=== PATIENT | male | born 1950 | race Caucasian/White ===

== ENCOUNTER 2024-01-26 17:18 | Emergency (ER) | payer MEDICARE, OTHER, SELFPAY ==
--- NOTE | ~2024-01-26 | XR_ITS ---
EXAMINATION: XR chest 1V portable Exam Date/Time: 01/26/2024 18:00 [employer] HISTORY: cough, sore throat Comparison: 02/08/2008. RESULT: Lines, tubes, and devices: Cholecystectomy clips. Lungs and pleura: Clear. Cardiomediastinal silhouette: Stable. Other: No acute osseous or upper abdominal finding. IMPRESSION: No acute cardiopulmonary process. Reviewed, dictated and finalized at location K. [employer]
[2024-01-26 17:24] VITALS: BP 79/46; PULSE 76; RESP 22; TEMP 37.7; O2SAT 91
[2024-01-26 17:39] VITALS: BP 86/56; PULSE 74; RESP 16; O2SAT 93
--- NOTE | 2024-01-26 17:45 | ED.GENADULT ---
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 Patient reports last night he started to little bit of a cough that popped up but was doing okay overall. Today states he started to developed fevers up to 101? F. He took Tylenol just prior to arrival. Reports only 1 episode of productive cough with sputum. States he had a similar episode about 1 month ago and got better with steroids and antibiotics. Denies abdominal pain, nausea, vomiting, chest pain, shortness of breath, syncope, back pain. Upon arrival his blood pressure is noted to be in the 80s over 50s, he states his blood pressure has been low several times in the past and he does have chronic orthostatic hypotension Related Data Home Medications Medication Instructions Recorded Confirmed acyclovir 800 mg tablet 12/21/19 albuterol sulfate 90 mcg/actuation inhalation 12/21/19 aerosol inhaler (Ventolin HFA) budesonide-formoterol HFA 160 inhalation 12/21/19 mcg-4.5 mcg/actuation aerosol inhaler (Symbicort) flecainide 150 mg tablet 12/21/19 metoprolol succinate 25 mg PO 12/21/19 tablet,extended release 24 hr pregabalin 150 mg capsule 12/21/19 Allergies Allergy/AdvReac Type Severity Reaction Status Date / Time gabapentin Allergy Intermediate Rash Verified 12/21/19 12:53 Review of Systems Review of Systems: All systems as dictated in [facility] Social History Social History Gender identity (if verbalized by the patient): Male Exam Narrative: GENERAL: Well-appearing, well-nourished, and in no acute distress. Pleasant and conversational HEAD: Normocephalic, atraumatic. EYES: PERRLA and EOMI. ENT: Nares clear, no rhinorrhea or epistaxis. Mucous membranes moist. Oropharynx without tonsillar hypertrophy exudate or other lesions. NECK: Supple. No adenopathy or masses. CHEST: No respiratory distress. Clear to auscultation. No wheezes rales or rhonchi. 93% room air. HEART: Regular rate and rhythm. No murmur heard. Normal peripheral pulses. ABDOMEN: Soft, nontender, nondistended, normal active bowel sounds. MSK: Normal range of motion. No edema. SKIN: Warm, dry, no rash. NEURO: Alert and oriented x3. No focal deficits. PSYCH: Normal mood and affect. Course Vital Signs Vital signs: Vital Signs Temperature 99.9 F H 01/26/24 17:24 Pulse Rate 76 01/26/24 17:24 Respiratory Rate 22 H 01/26/24 17:24 Blood Pressure 79/46 L 01/26/24 17:24 Pulse Oximetry 91 01/26/24 17:24 Oxygen Delivery Room Air 01/26/24 17:24 Temperature 100.2 F H 01/26/24 18:08 Pulse Rate 69 01/26/24 18:45 Respiratory Rate 17 01/26/24 18:45 Blood Pressure 121/62 01/26/24 18:45 Pulse Oximetry 99 01/26/24 18:45 Oxygen Delivery Room Air 01/26/24 17:24 Medical Decision Making [facility] Narrative Medical decision making narrative: This is a 73 year old male who presents to the ED for cough and sore throat for the past 24 hours. Vitals show low-grade temperature 99.9? and initially hypotensive. Apparently this is not abnormal for him with history of orthostatic hypotension. Exam overall is unremarkable. He is pleasant conversational. Strong pulses despite lower blood pressure. Saturating well on room air. Lab work shows normal white count. CMP shows slight elevations in creatinine and BUN, consistent with dehydration. Urinalysis negative. Chest x-ray Viral swab positive for influenza A. Symptoms consistent with influenza. Given his age and history of her bone marrow transplant several years ago he is consider
[2024-01-26 18:08] VITALS: BP 89/46; PULSE 67; RESP 18; TEMP 37.9; O2SAT 91
[2024-01-26 18:12] LABS: Basophils Percent Auto 0.2 % (0.2-1.2); Eosinophils Absolute Auto 0.1 K/mm3 (0-0.3); Hematocrit 35.6 % (42.0-52.0); Immature Granulocyte Absolute 0.02 K/mm3 (0.00-0.031); Immature Granulocyte Percent A 0.4 % (0-0.5); Immature Platelet Fraction Pct 3.9 % (0.9-11.2); Lymphocytes Absolute Auto 0.27 K/mm3 (0.9-3.2); Lymphocytes Percent Auto 5.5 % (18.3-44.2); Mean Corpuscular HGB Conc 33.7 g/dl (32-36); Mean Corpuscular Hemoglobin 32.8 pg (26-34); Mean Corpuscular Volume 97.3 fl (80-100); Mean Platelet Volume 9.4 fl (7.4-10.4); Monocytes Absolute Auto 0.4 K/mm3 (0.1-0.6); Monocytes Percent Auto 8.1 % (2.6-8.5); Neutrophils Absolute Auto 4.2 K/mm3 (1.3-6.7); Neutrophils Percent Auto 84.8 % (45.5-73.1); Platelet Count Result 145 k/mm3 (150-375); Red Blood Count 3.66 M/mm3 (4.6-6.20); Red Cell Distribution Width 12.3 % (11.5-14.5)
[2024-01-26 18:22] LABS: Lactic Acid Reflex 1.3 mmol/L (0.7-2.0)
[2024-01-26] MEDS: SODIUM CHLORIDE 0.9% IV 1,000 ML 999 ML IV CONT (18:23)
[2024-01-26 18:27] LABS: Alanine Aminotransferase 17 U/L (6-50); Albumin Level 3.9 g/dL (3.5-5.1); Alkaline Phosphatase 86 U/L (38-126); Anion Gap 1 mmol/L (8-16); Aspartate Amino Transferase 29 U/L (17-59); Bilirubin,Total 0.7 mg/dL (0.2-1.3); Blood Urea Nitrogen 23 mg/dL (9-20); Calcium 8.9 mg/dL (8.4-10.2); Carbon Dioxide 29 mmol/L (22-30); Chloride 102 mmol/L (98-107); Estimated CRCL calculation 51 ml/min; Estimated Glomerular Filt Rate 50; Glucose 118 mg/dL (65-110); Potassium 4.6 mmol/L (3.4-5.0); Sodium 132 mmol/L (137-145)
[2024-01-26 18:45] VITALS: BP 121/62; PULSE 69; RESP 17; O2SAT 99
[2024-01-26 18:46] LABS: Influenza A QL RT-PCR Positive (Negative); Influenza B QL RT-PCR Negative (Negative); RSV RNA, RT-PCR Negative (Negative); SARS-CoV-2 RNA PCR Negative (Negative)
[2024-01-26 18:55] LABS: INR 1.1; Partial Thromboplastin Time 30.3 SECONDS (22.3-36.8); Prothrombin Time 14.2 Seconds (11.1-14.7)
--- NOTE | 2024-01-26 19:16 | PC.NURSE ---
Assumed care of pt from GONZÁLEZ Curiel at this time.
[2024-01-26 19:24] LABS: Appearance Urine Clear (Clear); Bilirubin Urine Negative (Negative); Blood Urine Negative (Negative); Color Urine Yellow (Yellow); Glucose Urine UA Negative (Negative); Ketones Urine Negative (Negative); Leukocyte Esterase Ur Negative LEU/UL (Negative); Nitrate Urine Negative (Negative); Protein Urine Negative (Negative); Specific Grav Ur 1.015 (1.001-1.035); pH Urine 5.5 (5.0-9.0)
[2024-01-26 19:25] LABS: Add Urine Microscopic? NO
[2024-01-26] MEDS: ACETAMINOPHEN 325 MG TABLET 650 MG PO (19:37)
[2024-01-26 19:49] VITALS: BP 112/75; PULSE 70; RESP 17; O2SAT 96
== END 2024-01-26 19:53 | disposition home or self-care (01) ==
PROVIDERS: Emergency Provider Physician Assistant; PCP Internal Medicine
DX: J10.1 Influenza due to other identified influenza virus with other respiratory manifestations (principal); Z20.822 Contact with and (suspected) exposure to COVID-19; I48.91 Unspecified atrial fibrillation; J44.9 Chronic obstructive pulmonary disease, unspecified; Z94.81 Bone marrow transplant status; Z85.79 Personal history of other malignant neoplasms of lymphoid, hematopoietic and related tissues
CPT/HCPCS: 36415; 71045; 80053; 81003; 83605; 85025; 85055; 85610; 85730; 86140; 87637; 96360; 99283; A9270; J7030

== ENCOUNTER 2025-01-25 09:48 | Inpatient (IN) | payer MEDICARE, SELFPAY ==
--- NOTE | ~2025-01-25 | XR_ITS ---
XR hip LT 1V w AP pelvis Ordering provider: Eliot Siu MD History: . POST OP . Comparison: None. FINDINGS: BONES: No acute fracture or dislocation. HIP JOINT SPACES: Left hip arthroplasty. PUBIC SYMPHYSIS: Normal. SOFT TISSUES: Normal. IMPRESSION: No acute osseous abnormality. Left hip arthroplasty. Reviewed, dictated and finalized at location A. E SPOOLER
--- NOTE | ~2025-01-25 | XR_ITS ---
EXAMINATION: XR chest 1V DATE: 01/25/2025 13:12 INDICATION: Chest pain. Fall. TECHNIQUE: A single frontal view of the chest was obtained on 2 radiographs. COMPARISON: Chest single view 01/26/2024 FINDINGS: There is mild atelectasis at right lung base. No pleural effusion or pneumothorax. The hear t size is normal. There are old healed right rib fractures. IMPRESSION: 1. Mild atelectasis at right lung base. Reviewed, dictated and finalized at location A. ICAL AIDE
--- NOTE | ~2025-01-25 | XR_ITS ---
INTRAOPERATIVE RADIOGRAPH: CLINICAL HISTORY: 74 years old Male; INTRA OP HIP LEFT SIDE PROCEDURE COMMENTS: Limited intraoperative radiograph of the left was performed. FINDINGS/IMPRESSION: Please refer to operative note for further details. Reviewed, dictated and finalized at location A. TIN PLANT SUPERVISOR
--- NOTE | ~2025-01-25 | MR_ITS ---
MR cervical spine wo/w con Ordering provider: Eliot Siu MD History: . Lower extremity and upper extremity wk + Spasticit . Comparison: None. Technique: MRI cervical spine with and without contrast enhancement. 20 mL Prohance was given IV. FINDINGS: CERVICAL SPINAL CORD/CRANIAL CERVICAL JUNCTION: Normal in signal and caliber. No abnormal enhancement . CERVICAL VERTEBRAL BODIES: Normal height and alignment. Normal marrow signal. No abnormal marrow enha ncement. Degenerative changes of the spine. DISK SPACES: Narrowing of the disc C5-C6 and C6-C7 C2-C3: No stenosis. C3-C4: No stenosis. Diffuse disc bulge with bilateral narrowing of the foramina. Bilateral nerve root compression. C4-C5: No stenosis. Mild diffuse disc bulge. Narrowing of the left intervertebral foramen. C5-C6: No stenosis. Diffuse disc bulge with narrowing of the left intervertebral foramen and with com pression. C6-C7: No stenosis. Diffuse disc bulge with narrowing of the left foramen and with nerve root konstantin alex. C7-T1: No stenosis. Diffuse disc bulge. Narrowing of the right foramen with root compression. VISUALIZED PARASPINOUS SOFT TISSUES: Normal. No abnormal enhancement. IMPRESSION: 1. No acute osseous abnormality. 2. Multilevel degenerative disc disease with variable degrees of intervertebral foraminal narrowing and root compression.. 3. No enhancing lesion Reviewed, dictated and finalized at location A. CTOR OF CATERING SALES IMPRESSION: 1. No acute osseous abnormality. 2. Multilevel degenerative disc disease with variable degrees of intervertebra l foraminal narrowing and root compression.. 3. No enhancing lesion
--- NOTE | ~2025-01-25 | XR_ITS ---
EXAMINATION: XR hip LT 2V w AP pelvis DATE: 01/25/2025 13:12 INDICATION: Left hip pain. Injury. TECHNIQUE: An anteroposterior the pelvis on 2 radiographs and 2 views of the left hip were obtained. COMPARISON: None. FINDINGS: There is a subcapital fracture of left femoral neck. The distal fracture fragment demonstra patricia impaction, 11 mm anterior displacement, and 10 mm lateral displacement. There is mild osteoarthri tis of the hips. There is severe lumbar spondylosis. There are surgical clips overlying the abdomen a nd pelvis. IMPRESSION: 1. Subcapital fracture of left femoral neck. 2. Mild osteoarthritis of the hips. Reviewed, dictated and finalized at location A. IAL SERVICES AGENT
--- NOTE | ~2025-01-25 | XR_ITS ---
HISTORY: AP RT hip, leg with mild int rot, centered on head COMPARISON: None TECHNIQUE: AP view of the right hip FINDINGS: No acute fracture or dislocation is identified. Superior lateral sclerosis of the right femoral acetabular joint space is present consistent with ost eoarthritis. Joint space narrowing detected within the left SI joint with sclerosis. Degenerative disease within the visualized portion of the lower lumbar spine. Mineralization is age-appropriate IMPRESSION: Degenerative disease without acute fracture or dislocation Reviewed, dictated and finalized at location A. GATING OFFICER
--- NOTE | ~2025-01-25 | MR_ITS ---
EXAMINATION: MR lumbar spine wo con DATE: 01/30/2025 13:18 INDICATION: Lower extremity weakness and numbness TECHNIQUE: Magnetic resonance imaging (MRI) of the lumbar spine was performed without intravenous con trast. Sequences included sagittal T2-weighted FSE, sagittal T2-weighted FS FSE, sagittal T1-weighted FSE, and axial T2-weighted FSE. COMPARISON: None FINDINGS: 7 mm retrolisthesis L4 on L5 and 3 mm retrolisthesis L1 on L2, L2 on L3 and L3 on L4. Chronic konstantin alex fractures with 20% anterior vertebral body height loss at T12 and L1 and with 10% anterior verte bral body height loss at L2. Small Schmorl's node along the anterior inferior endplate of L3. Moderat e disc height loss at T11-T12, L1-L2 and L2-L3, moderate disc height loss at L3-L4 and L5-S1 and yara re disc height loss at L4-L5. There are fibrovascular degenerative endplate changes at a few levels i n the lumbar spine. Bone marrow signal is otherwise normal. The conus medullaris terminates at L1-L2. There is normal signal in the caudal spinal cord. Paravertebral soft tissues are unremarkable. The f ollowing disc levels are specifically discussed: T12-L1: The disc does not extend beyond the endplate margin. There is bilateral facet joint osteoarth ritis. There is no neural foraminal stenosis. There is no central canal stenosis. L1-L2: Disc is bulging. There is hypertrophy of the ligamentum flavum. There is moderate bilateral fa cet joint osteoarthritis. There is mild bilateral neural foraminal stenosis. There is mild central ca nal stenosis. L2-L3: Disc is bulging with annular fissure and small central disc extrusion with disc material exten ding 5 mm caudal to the level of the superior endplate of L3. There is hypertrophy of the ligamentum flavum. There is mild left and moderate right facet joint osteoarthritis. There is moderate left and mild to moderate right neural foraminal stenosis. There is mild to moderate central canal stenosis. L3-L4: Disc is bulging with annular fissure broad-based disc extrusion extending from foraminal zone to foraminal zone with disc material extending a few millimeter cephalad and caudal to the level of t he endplates. There is moderate bilateral facet joint osteoarthritis. There is moderate left and mild to moderate right neural foraminal stenosis. There is mild central canal stenosis. L4-L5: Disc is bulging with annular fissure and disc extrusion extending from foraminal zone to maggie inal zone with disc material extending up to 4 mm caudal to the level of the superior endplate of L5. There is hypertrophy of the ligamentum flavum. There is moderate bilateral facet joint osteoarthriti s. There is moderate left and moderate to severe right neural foraminal stenosis. There is mild centr al canal stenosis. L5-S1: Disc is bulging with annular fissure and disc extrusion extending from foraminal zone to maggie inal zone with disc material extending a few millimeter cephalad and caudal to the level of the endpl ates. There is hypertrophy of the ligamentum flavum. There is moderate left and severe right facet anuradha int osteoarthritis. There is moderate left and moderate to severe right neural foraminal stenosis. Th ere is no central canal stenosis. IMPRESSION: 1. Severe lumbar spondylosis. Reviewed, dictated and finalized at location B. TH PROGRAM DIRECTOR
--- NOTE | ~2025-01-25 | XR_ITS ---
EXAMINATION: XR knee LT 3V DATE: 01/25/2025 13:12 INDICATION: Left knee pain. Injury. TECHNIQUE: 3 views of left knee were obtained. COMPARISON: None. FINDINGS: Sensitivity is decreased by nonstandard positioning. Alignment is normal. No fracture. Ther e is mild osteoarthritis of medial and lateral compartments. No knee joint effusion. IMPRESSION: 1. Mild left knee osteoarthritis. Reviewed, dictated and finalized at location A. 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
--- NOTE | ~2025-01-25 | MR_ITS ---
EXAMINATION: MR thoracic spine wo/w con DATE: 01/30/2025 15:38 INDICATION: Lower extremity weakness and numbness TECHNIQUE: Magnetic resonance imaging (MRI) of the thoracic spine was performed without and with 20 m L ProHance intravenous contrast. Sagittal localizer T1-weighted FSE of the cervicothoracic spine was obtained. Thoracic spine sequences included sagittal T2-weighted FSE, sagittal T1-weighted SE, Sagitt al T2-weighted FS FSE, and axial T2-weighted FSE. COMPARISON: None FINDINGS: Moderate cervical spondylosis on the dressing room attendant localizer images. Sagittal alignment is normal. There is 1 0 degrees mid thoracic dextroscoliosis with compensatory mild cervicothoracic and thoracolumbar levoc urvature. Chronic mild likely physiologic anterior wedging at T11 and T12. Normal marrow signal. Mild disc height loss at T2-T3 through T6-T7. The thoracic discs do not extend beyond the endplate margin . There is normal spinal cord signal. The conus terminates at T12-L1. There is multilevel mild to mod erate upper thoracic predominant facet osteoarthritis noted discontiguous 2 mild neural foraminal maria nosis at a few levels bilaterally in the upper thoracic spine. No abnormally enhancing spine or cord lesions identified. IMPRESSION: 1. 10 degrees midthoracic dextroscoliosis with mild thoracic spondylosis. Reviewed, dictated and finalized at location B. 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
[2025-01-25 09:52] VITALS: BP 94/58; PULSE 72; RESP 15; TEMP 36.6; O2SAT 100
--- OUTSIDE RECORDS SUMMARY | 2025-01-25 10:53 | XMS_ITS | Referral Summary ---
Author Organization [facility] Address [address] [facility] [place] [address] Care Team Providers Care Evaluation Manager Name Role Phone Billy Jalloh MD Primary Care Provider Jamie Arboleda MD Unavailable Ruben Prak MD Unavailable Yoni Young CD Unavailable Vadim Xiong MD Unavailable [phone] Source Comments [facility],non-owned Affiliates and Associated Physician Practices is amultiple site organization consisting of ambulatory clinics and hospital sitesin [place], [place], [place] and [place]. This disclosure is being madepursuant to the Care Everywhere program and may not contain all information available regarding this patient. 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) 12/23/2024 Travel 11/09/2024 Orders Only [facility] - Pulmonology [facility], [place] [address] Jamie Arboleda MD 11/07/2024 Telephone [facility] - Pulmonology [facility] [place] [address] Jamie Arboleda MD 11/07/2024 Telephone [facility] - Centralized Scheduling [address] [place] [address] Jamie Arboleda MD Reschedule Appointment from Last 3 Months Allergies Active Allergy Reactions Criticality Noted Date Comments Gabapentin Rash,Urticaria Medium 03/15/2015 Suspect the rash was caused by gabapentin Medications * Be aware that medications may not be up to date on this document. Alwaysverify current medications with the patient. Medication Sig Dispensed Refills Start Date End Date Status docusate sodium (COLACE) 100 MG capsule Take 1 capsule by mouth 2 times daily 60 capsule 9 Active pregabalin (LYRICA) 150 MG capsuleIndications: Waldenstrom macroglobulinemia,S ensory polyneuropathy Take 1 (one) capsule by mouth 2 times daily 60 capsule 5 1 Active Additional Information Patient not taking.Reported on 12/27/2024 valACYclovir (VALTREX) 500 MG tablet Take 1 (one) tablet by mouth once daily 2 Active ketoconazole (Nizoral) 2 % shampooIndications: Rash and other nonspecific skin eruption,Other seborrheic dermatitis Apply to wet hair, leave on for 3 minutes, then rinse; three times weekly. 30 days supply 120 mL 11 3 Active Additional Information Patient not taking.Reported on 04/19/2024 apixaban (Eliquis) 5 MG tablet Take 1 (one) tablet by mouth 2 times daily 180 tablet 3 4 Active Vitamin D (Vitamin D3) 50 MCG (2000 UT) capsule Take 1 (one) capsule by mouth Twice Daily, Three Times a Week Active hydroCHLOROthiazide (Hydrodiuril) 25 MG tablet TAKE 1/2 TABLET BY MOUTH DAILY 45 tablet 3 4 Active metoprolol succinate XL 24hr (Toprol XL) 25 MG tabletIndications:P ersistent atrial fibrillation (HCC) TAKE 1 TABLET BY MOUTH EVERY DAY 90 tablet 3 4 Active albuterol HFA (Proventil; Ventolin; Proair) 108 (90 Base) MCG/ACT inhaler INHALE 2 PUFFS BY MOUTH EVERY 4 HOURS NEEDED 8 g 5 4 Active flecainide (Tambocor) 150 MG tablet TAKE 1 TABLET BY MOUTH TWICE A DAY 60 tablet 5 4 Active OtherIndications:Ac tinic Keratosis Apply fluorouracil and calcipotriene mixture to affected areas on the face twice daily for 4 days and BID for 6 days on the hands and forearms. Avoid the eyes. Reasons: Actinic Keratosis 60 g 4 Active Additional Information Patient not taking.Reported on 12/27/2024 amoxicillin (Amoxil) 500 MG capsule TAKE 1 CAPSULE BY MOUTH THREE TIMES A DAY FOR 10 DAYS 5 Active aspirin (Aspirin) 81 MG chew tablet Take 1 (one) tablet by mouth once daily 90 tablet 3 5 Active atorvastatin (Lipitor) 80 MG tablet Take 1 (one) tablet by mouth once daily 90 tablet 3 5 Active fluticasone-umeclid in-vilant (Trelegy Ellipta) 200-62.5-25 MCG/ACT inhaler Inhale 1 (one) puff by mouth once daily 60 Each 3 5 Active hydroCHLOROthiazide (Hydrodiuril) 25 MG tablet Take 0.5 (one-half) tablet by mouth once daily 45 tablet 3 4 12/27/19 25 Discontinu ed(List Clean-Up) atorvastatin (Lipitor) 20 MG tablet Take 1 (one) tablet by mouth at bedtime 12/27/19 25 Discontinu ed(Tx Complete) budeson-glycopyrrol -formoterol (Breztri Aerosphere) 160-9-4.8 MCG/ACT inhaler Inhale 2 (two) puffs by mouth 2 times daily 10 g 5 4 01/17/20 25 Discontinu ed(Clinica l Decision) Active Problems Problem Noted Date Diagnosed Date Coronary artery disease invo lving igiugig coronary artery of igiugig heart with angina pectoris 12/27/2024 Actinic keratosis 03/02/2023 Neoplasm of uncertain behavior of skin 3 History of nonmelanoma skin cancer 03/02/2023 Lentigines 03/02/2023 Multiple benign melanocytic nevi of upper extremity, lower extremity, and trunk 03/02/2023 Seborrheic keratosis 03/02/2023 Xerosis cutis 03/02/2023 Acute bronchitis 08/26/2021 Dermatophytosis 08/26/2021 Gastroesophageal reflux disease 08/26/2021 History of malignant lymphoma 08/26/2021 Tobacco user 08/26/2021 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 01/28/2019 Vasovagal syncope 08/15/2018 Need for revaccination 07/09/2018 Chronic obstructive lung disease 07/07/2018 Chronic respiratory failure with hypoxia 018 Overview (08/26/2021): Documented in medical record Hypogammaglobulinemia, acquired 06/21/2018 Shortness of breath 05/31/2018 Cough, persistent 03/09/2018 Persistent atrial fibrillation 02/28/2018 Other jail (current) drug therapy 6 Waldenstrom's macroglobulinemia 09/15/2016 Centrilobular emphysema 08/28/2016 Overview (08/26/2021): Documented in medical record Rash and other nonspecific skin eruption 016 Paroxysmal atrial fibrillation 11/16/2015 Other hereditary and idiopathic neuropathies 04/2015 Polyneuropathy 04/04/2015 Primary malignant neoplasm 01/05/2015 Immunizations Name Administration Dates Next Due Covid Moderna primary monova lent 12+ yr 0.5mL 08/09/2021,02/12/2021,01/15/2021 Covid Pfizer primary monoval ent 12+ yr 0.3mL Purple cap 02/12/2021 HEP A/HEP B 03/30/2018,11/05/2017,09/04/2017 HEP B VACCINE, ADULT 3 DOSE 03/30/2018, 7,09/04/2017 HIB-PRP-T 4 DOSE 01/28/2018,11/05/2017, 7 INFLUENZA VACCINE 08/04/2021, 9,08/09/2018,01/28,11/05/2017,09/04/2017,09/06/2013 INFLUENZA VACCINE, ADJUVANTE D, QUADR. (FLUAD QUADRIVALENT; 65Y+) (AIIV4) 09/03/2020 INFLUENZA VACCINE, HIGH-DOSE , QUADR. (FLUZONE HIGH-DOSE QUADRIVALENT; 65Y+), 0.7 ML (HD-IIV4) 09/02/2019,08/12/2018,08/24/2017,01/05,09/02/2015 MENINGOCOCCAL CONJUGATE (MCV4P) 09/04/2017 MENINGOCOCCAL MCV4O 07/25/2020 PNEUMOCOCCAL PCV VACCINE 03/30/2018,07/31/2014 PNEUMOCOCCAL PPSV23 03/30/2018,07/31/2014 POLIO IPV 01/28/2018,11/05/2017,09/04/2017 Pneumococcal Pcv13 Conj 01/28/2018,11/05,09/04/2017,07/04 TDAP (7yrs+) 01/28/2018,11/05/2017,09/04/2017 ZOSTER VACCINE, LIVE 09/12/2013,08/30/2012 Zoster Hzv Vacc Recombinant Inj Im 07/25/2020, Social History Tobacco Use Types Packs/Day Years Used Date Smoking Tobacco: Former Cigarettes 2 30 0 04/1970 - 04/2000 Smokeless Tobacco: Never Tobacco Cessation:Counseling Given: Not Answered Alcohol Use Standard Drinks/Week Comments Yes 0.8 (1 standard drink = 0.6 oz p ure alcohol) beer once in a while PHQ-2 Answer Date Recorded PHQ2 TOTAL SCORE 0 01/30/2022 Sex and Gender Information Value Date Recorded Sex Assigned at Male 09/26/2021 11:03 AM CDT Gender Identity Male 09/26/2021 11:04 AM CDT Sexual Orientation Straight 09/26/2021 11 :04 AM CDT Last Filed Vital Signs Vital Sign Reading Time Taken Comments Blood Pressure 109/72 01/04/2025 8:57 PM WILLOW ANALYST Pulse 56 01/04/2025 8:57 PM WILLOW ANALYST Temperature 36.7 C (98.1 F) 01/04/2025 5:06 PM WILLOW ANALYST Respiratory Rate 13 01/04/2025 8:57 PM WILLOW ANALYST Oxygen Saturation 94% 01/04/2025 8:57 PM WILLOW ANALYST Inhaled Oxygen Concentration - - Weight 99.8 kg (220 lb) 01/04/2025 11:14 AM WILLOW ANALYST Height 193 cm (6' 4 ) 01/04/2025 11:14 AM WILLOW ANALYST Body Mass Index 26.78 01/04/2025 11:14 AM WILLOW ANALYST Functional Status Functional Status Response Date of Assess ment Is person deaf or have serious hearing difficult y? No 01/04/2025 Is person blind or have serious difficulty seein g? No 01/04/2025 Does person have serious dif ficulty walking/climbing stairs? Yes 01/04/2025 Does person have difficulty dressing/bathing? No 01/04/2025 Does person have difficulty doing errands alone? Yes 01/04/2025 Cognitive Status Response Date of Assessm ent Does person have difficulty concentrating/remembering/making decisions? No 01/04/2025 Plan of Treatment Upcoming Encounters Date Type Department Care Team (Late st Contact Info) Description 03/23/2025 11:00 AM CDT Office Visit [facility] - Cardiology [address] [facility], [place] [id number] [place] [address] Clifford Nolan MD [address] [facility], [facility] [address] [place] [address] 03/27/2025 11:00 AM CDT Office Visit [facility] - Dermatology [address] [place] [address], [place] [phone] Rosie Quigley MD [address] [place] [address] [address] [place] [address] 03/30/2025 11:00 AM CDT Office Visit [facility] - Pulmonology [address] [place] [address], [place] [phone] Jamie Arboleda MD [address] [place] [address] [address] DIV OF PULMONARY/[place] [address] 08/08/2025 10:45 AM CDT Office Visit [facility] - General Surgery [address] [place] [address], [place] [phone] Irene Rojas MD [address] [place] [address] [address] [place] [phone] Medical Devices Explanted Type Area Die Cast Patternmaker Device Identifier Shelf Expiration Date Model / Serial / Lot [employer] Ureteral Stents Explanted:Qty: 2 on 06/10/2019 by Heber Vizcarra MD at [facility] Bilateral: Ureter [employer] Haile 05/02/2022 [id number] / / [id number] Procedures Procedure Name Priority Date/Time Associated Diagnosis Comments ACT LR - POCT ([facility]) Routine 01/04/2025 5:49 PM WILLOW ANALYST ACT LR - POCT ([facility]) Routine 01/04/2025 5:37 PM WILLOW ANALYST CCL PERCUTANEOUS CORONARY INTERVENTION Routine 01/04/2025 4:59 PM WILLOW ANALYST 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) CCL LEFT HEART CATH Routine 01/04/2025 4 :59 PM WILLOW ANALYST 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) BASIC METABOLIC PANEL (CALCIUM TOTAL) STAT 01/04/2025 11:36 AM WILLOW ANALYST 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 ACT LR 282 See result comments sec 01/09/2025 7:16 AM [facility] Blood BLOOD SPECIMEN / Unknown 01/04/2025 5:49 PM WILLOW ANALYST 01/09/2025 7:16 AM WILLOW ANALYST Narrative [facility] - 01/09/2025 7:16 AM WILLOW ANALYST ACT-LR Therapeutics ranges are: Cardiac construction craft laborer = 200-300 seconds Sheath pull = ACT less than 170 seconds EPS lab = 200-240 seconds Sheath pull = ACT less than 140 seconds Radiology : CT/Angio lab = 200-300 seconds Sheath pull = ACT less than 200 seconds Expected range of normal volunteers: ACT-LR = 113-149 seconds Expected range of a Non-heparin patients: ACT-LR = 89-169 seconds From established ranges from the company manual Salazar Ward MD LAB - COAGULATION OR DERABLES [place] [address] [place] [address], [facility] [phone] * CCL LEFT HEART CATH, CCL PERCUTANEOUS CORONARY INTERVENTION (01/04/2025 4:59 PM WILLOW ANALYST) Anatomical Region Laterality Modality X-Ray Angiograph y Narrative 01/06/2025 7:41 AM WILLOW ANALYST LM 30-40% (MLA 9.5 cm2). Prox RCA lesion is 50% stenosed. Negative by iFR (0.99) LVEDP: 6 mmHg. Lcx and LAD without obstructive disease but very tortuous vessels. Reason for Procedure 74 year old male with past medical history persistent a fib (on Eliquis, flecainide), PAD, HTN, CAD presents for [facility] with Dr. Ward. Patient has known multivessel CAD on CT and has been experiencing progressively worsening LASSITER for which presents for ischemic evaluation. Had dobutamine stress echo 07/2021 non-diagnostic with submaximal HR. Procedure Details Estimated Blood Loss: 5 mL Coronary Findings Diagnostic Dominance: Right Left Main: The vessel was visualized by selective angiography. 30-40% stenosis of LM (MLA 9.5 cm2) Mid LM lesion is 30% stenosed. SALAS flow is 3. Ultrasound (IVUS) was performed. Minimum lumen area: 9.5 mm . Left Anterior Descending: The vessel was visualized by selective angiography and is moderate in size. The vessel exhibits minimal luminal irregularities. The vessel is severely tortuous. Left Circumflex: The vessel was visualized by selective angiography and is large in size. The vessel exhibits minimal luminal irregularities. The vessel is severely tortuous. Right Coronary Artery: The vessel was visualized by selective angiography and is moderate in size. Prox RCA lesion is 50% stenosed. SALAS flow is 3. iFR was measured. iFR ratio: 0.99. Dist RCA lesion is 50% stenosed. SALAS flow is 3. iFR was measured. iFR ratio: 0.99. Intervention No interventions have been documented. Left Ventricle LVEDP: 6 mmHg. Courtney KENNY CV CARDIAC CATH CUPI D PROCS * (ABNORMAL) BASIC METABOLIC PANEL (CALCIUM TOTAL) (01/04/2025 11:36 AM WILLOW ANALYST) Only the most recent of2 resultswithin the time period is included. BUN 25 7 - 26 mg/dL 01/04/2025 12:48 PM [facility] Creatinine 1.43(H) 0.71 - 1.16 mg/dL 01/04/2025 12:48 PM [facility] Sodium 140 136 - 145 mmol/L 01/04/2025 12:48 PM [facility] Potassium 4.6(H) 3.5 - 4.5 mmol/L 01/04/2025 12:48 PM [facility] Chloride 104 98 - 107 mmol/L 01/04/2025 12:48 PM [facility] CO2 27 22 - 29 mmol/L 01/04/2025 12:48 PM [facility] Glucose 88 70 - 99 mg/dL 01/04/2025 12:48 PM [facility] Calcium 9.4 8.4 - 10.2 mg/dL 01/04/2025 12:48 PM [facility] Anion Gap 9 6 - 16 01/04/2025 12:48 PM [facility] BUN/Creatinine Ratio 17 7 - 23 01/04/2025 12:48 PM [facility] Osmolality Calculated 294 275 - 295 mOsm/kg 01/04/2025 12:48 PM [facility] eGFR by CKD-EPI 51(L) >=90 mL/min/1.7 3 m2 01/04/2025 12:48 PM [facility] Blood BLOOD SPECIMEN / Unknown Venipuncture / Unknown 01/04/2025 11:36 AM WILLOW ANALYST 01/04/2025 12:35 PM WILLOW ANALYST Courtney KENNY LAB - CHEMISTRY [facility] Organization Address City/State/ZIP Co de Phone Number [facility] [address] [address], [place] [phone] * (ABNORMAL) CBC W/O DIFFERENTIAL (12/30/2024 11:58 AM WILLOW ANALYST) Pathologist [facility] White Blood Cell Count 4.8 3.8 - 10.8 Thousand/ uL [facility] RBC 4.29 4.20 - 5.80 Million/u L [facility] Hemoglobin 14.1 13.2 - 17.1 g/dL [facility] Hematocrit 43.0 38.5 - 50.0 % [facility] MCV 100.2(H) 80.0 - 100.0 fL [facility] MCH 32.9 27.0 - 33.0 pg [facility] MCHC 32.8 32.0 - 36.0 g/dL [facility] Comment: For adults, a slight decrease in the calculated MCHC value (in the range of 30 to 32 g/dL) is most likely not clinically significant; however, it should be interpreted with caution in correlation with other red cell parameters and the patient's clinical condition. RDW 12.0 11.0 - 15.0 % [facility] Platelet Count 184 140 - 400 Thousand/ uL [facility] MPV 9.5 7.5 - 12.5 fL [facility] Comment: REPORT COMMENT: FASTING:NO Test Performed at: [facility] [address] GEORGE SAAVEDRA MD 12/30/2024 11:5 8 AM WILLOW ANALYST 12/30/2024 12:00 PM WILLOW ANALYST Courtney KENNY LAB - HEMATOLOGY ORD ERABLES Performing Organization Address [facility] Co de Phone Number [address] [address] * EKG 12-LEAD (12/27/2024 10:07 AM WILLOW ANALYST) Courtney KENNY ECG ORDERABLES Performing Organization Address [facility] Co de Phone Number [facility] * ENDOSCOPY, COLON, SCREENING (07/20/2023 1:14 PM CDT) Pathologist [facility] Report Endoscopy POC Endoscopy Department Report _ Patient Name: Xavier Sosa Procedure Date: 07/20/2023 1:14 PM Date of : 1950 Classification: Outpatient Gender: Male Ethnicity: Not or Race: White _ Providers: Irene Zuluaga MD: Procedure: Colonoscopy Indications: High risk colon cancer surveillance: Personal history of rectal cancer Medications: Propofol per Anesthesia Description of Procedure: After I obtained informed consent, the scope was passed under direct vision. Throughout the procedure, the patient's blood pressure, pulse, and oxygen saturations were monitored continuously. The [id number]-[id number] was introduced through the anus and advanced to the cecum, identified by appendiceal orifice and ileocecal valve. The colonoscopy was performed without difficulty. The patient tolerated the procedure well. The quality of the bowel preparation was good. The entire colon was well visualized. Findings: A 5 mm polyp was found at 60 cm proximal to the stoma. The polyp was sessile. Biopsies were taken with a cold forceps for histology. Verification of patient identification for the specimen was done by the physician and nurse. Estimated blood loss was minimal. Estimated Blood Loss: Estimated blood loss was minimal. Complications: No immediate complications. Estimated blood loss: Minimal. Impression: - One 5 mm polyp at 60 cm proximal to the stoma. Biopsied. Recommendation: - Repeat colonoscopy in 3 years for screening purposes. - Return to my office in 6 months. Attending Participation: I personally performed the entire procedure. Procedure Code(s): --- Professional --- 39162, Colonoscopy, flexible; with biopsy, single or multiple Diagnosis Code(s): --- Professional --- Z85.048, Personal history of other malignant neoplasm of rectum, rectosigmoid junction, and anus D12.6, Benign neoplasm of colon, unspecified CPT copyright 2021 [employer] [place] [employer]. All rights reserved. The codes documented in this report are preliminary and upon icd 9 coder review may be revised to meet current compliance requirements. Irene Rojas, 07/20/2023 1:58:28 PM Note Initiated On: 07/20/2023 1:14 PM Number of Addenda: [id number] [place] [address] 07/20/2023 1:14 PM CDT Irene Rojas MD GI PROCEDURE ORDER [facility] * (ABNORMAL) INFECTIOUS DISEASE TESTING NT (08/22/2016 8:57 AM CDT) Hepatitis B Surface Antigen Negative Negative [facility] Hepatitis C Virus Antibody Negative Negative [facility] HIV-1 / HIV-2 Antibody Western Blot Negative Negative [facility] Hepatitis B Core Virus Antibody Negative Negative [facility] HTLV-I/II Antibody Negative Negative [facility] NTL T. pallidum Antibody Negative Negative [facility] Cytomegalovirus Antibody Positive(A) Negative [facility] HIV-1/HCV/HBV (TAMMI) Negative Negative [facility] West Nile Virus Negative Negative [facility] Chagas Antibody Negative Negative [facility] Blood specimen (specimen) BLOOD SPECIMEN / Unknown 08/22/2016 8:57 AM CDT 08/22/2016 9:31 AM CDT Narrative [facility] - 08/25/2016 10:46 AM CDT [employer] [place]-NTL ID [id number] Performed By: [employer] [place] [facility] [address] [place] [address] Historical Provider LAB - CHEMISTRY O RDERABLES Performing Organization Address City/[facility]/ZIP Co de Phone Number [facility] [address] [place], [place] [phone] [place] [address] from Last 3 Months or Most Recently Relevant to Health Maintenance Advance Directives Documents on File Type Date Recorded Patient Tile Picker Expl anation Adv Directive/Living Will/POA 06/04/2018 7:40 AM Advance Directives and Livin g Will 04/04/2015 12:00 AM Advance Directives and Livin g Will 01/24/2015 12:00 AM * Full Code (Latest Code Status on File) Date Activated Date Inactivated Comments 01/04/2025 5:02 PM 01/05/2025 2:43 AM * Full Code Date Activated Date Inactivated Comments 06/10/2019 6:22 PM 06/15/2019 7:55 PM * Full Code Date Activated Date Inactivated Comments 05/31/2018 1:34 PM 06/03/2018 5:21 PM Care Teams Evaluation Manager Relationship Specialty Start Date End Date Billy Jalloh MD [address] [place] [address] [address] [place] [address] PCP - General 07/08/16 Jamie Arboleda MD [address] [place] [address] Pulmonary Disease 07/08/18 Ruben Park MD [address] [place] [address] Hematology and Oncology 07/08/18 Yoni Young CD [address] [facility] [address] [place] [address] Cardiology 07/08/18 Vadim Xiong MD [address] [place] [address] Gastroenterology 12/02/18
--- OUTSIDE RECORDS SUMMARY | 2025-01-25 10:53 | XMS_ITS | Clinical Summary ---
Author Organization [facility] Address [address] [address] Care Team Providers Care Offal Trimmer Name Role Phone Billy Jalloh MD Primary Care Provider Jamie Arboleda MD Unavailable Ruben Park MD Unavailable Yoni Young CD Unavailable Vadim Xiong MD Unavailable [phone] Source Comments [facility],non-owned Affiliates and Associated Physician Practices is amultiple site organization consisting of ambulatory clinics and hospital sitesin [place], [place], [place] and [place]. This disclosure is being madepursuant to the Care Everywhere program and may not contain all information available regarding this patient. 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 6 Waldenstrom's macroglobulinemia 09/15/2016 Centrilobular emphysema 08/28/2016 Overview (08/26/2021): Documented in medical record Rash and other nonspecific skin eruption 016 Paroxysmal atrial fibrillation 11/16/2015 Other hereditary and idiopathic neuropathies 04/2015 Polyneuropathy 04/04/2015 Primary malignant neoplasm 01/05/2015 Encounters Date Type Department Care Team Description 01/17/2025 Orders Only [facility] - Pulmonology [address] [place] [phone] Jamie Arboleda MD 01/12/2025 Refill [facility] - Pulmonology [address] [place] [phone] Jamie Arboleda MD Medication Request 01/04/2025 4:14 PM LOCATOR SPECIALIST - 01/04/2025 5:35 PM LOCATOR SPECIALIST Surgery [facility] - Cardiac [place] [address] [place] [address] Salazar Ward MD Left Heart Cath 01/04/2025 10:50 AM LOCATOR SPECIALIST - 01/04/2025 9:06 PM LOCATOR SPECIALIST Hospital Encounter [facility] [address] [place] [address] Salazar Ward MD Cardiac Catheterization Discharge Disposition: Home or Self Care 01/04/2025 Travel 12/27/2024 10:30 AM LOCATOR SPECIALIST Office Visit [facility] - Cardiology [address] [facility], [facility] [address] [place] [address] Courtney Vallejo PA Persistent atrial fibrillation (HCC) (Primary Dx); LASSITER (dyspnea on exertion); Coronary artery disease involving coyote valley coronary artery of coyote valley heart with angina pectoris (HCC) 12/27/2024 Travel 12/23/2024 Travel 11/09/2024 Orders Only [facility] - Pulmonology [address] [facility], [place] [address] Jamie Arboleda MD 11/07/2024 Telephone [facility] Pulmonology [address] [facility], [place] [address] Jamie Arboleda MD 11/07/2024 Telephone [facility] - Centralized Scheduling [address] [place] [address] Jamie Arboleda MD Reschedule Appointment from Last 3 Months Immunizations Name Administration Dates Next Due Covid [...] Zoster Hzv Vacc Recombinant Inj Im 07/25/2020, Family History Medical History Relation Name Comments COPD - Chronic Obstructive Pulmonary Disease Brother Diabetes Daughter 1 Lung Disease Father Cancer Sister 1 Cancer - Colon Sister 2 Lung Disease Sister 3 Cancer Sister 4 CVA Neg Hx Cancer - Breast Neg Hx Cancer - Other Neg Hx Cancer - Skin, Melanoma Neg Hx Cancer - Skin, Non Melanoma Neg Hx Eczema Neg Hx Hemophilia Neg Hx Psoriasis Neg Hx Relation Name Status Comments Brother Alive Daughter 1 Alive Daughter 2 Alive Father Mother Sister 1 Sister 2 Sister 3 Sister 4 Sister 5 Alive Sister 6 Alive Social History Tobacco Use Types Packs/Day Years [...] Comments Blood Pressure 109/72 01/04/2025 8:57 PM LOCATOR SPECIALIST Pulse 56 01/04/2025 8:57 PM LOCATOR SPECIALIST Temperature 36.7 C (98.1 F) 01/04/2025 5:06 PM LOCATOR SPECIALIST Respiratory Rate 13 01/04/2025 8:57 PM LOCATOR SPECIALIST Oxygen Saturation 94% 01/04/2025 8:57 PM LOCATOR SPECIALIST Inhaled Oxygen Concentration - - Weight 99.8 kg (220 lb) 01/04/2025 11:14 AM LOCATOR SPECIALIST Height 193 cm (6' 4 ) 01/04/2025 11:14 AM LOCATOR SPECIALIST Body Mass Index 26.78 01/04/2025 11:14 AM LOCATOR SPECIALIST Plan of Treatment Upcoming Encounters Date Type Department Care Team (Late st Contact Info) Description 03/23/2025 11:00 AM CDT Office Visit [facility] - Cardiology [address] [facility], [facility] [address] [place] [address] Clifford Nolan MD [address] [facility], [facility] [address] [place] [address] 03/27/2025 11:00 AM CDT Office Visit [facility] - Dermatology [address] [place] [address], [place] [phone] Rosie Quigley MD [address] [place] [address] [address] [place] [address] 03/30/2025 11:00 AM CDT Office Visit [facility] - Pulmonology [address] [place] [address], [place] [address] Jamie Arboleda MD [address] [place] [address] 2[address] DIV OF PULMONARY/[place] [address] 08/08/2025 10:45 AM CDT Office Visit [facility] - General Surgery [address] [place] [address], [place] [phone] Irene Rojas MD [address] [place] [address] [address] [place] [phone] Health Maintenance Due Date Last Done Comments COLOGUARD (AGES 45-75) - COLON CA SCREENING 1950 CT COLONOGRAPHY - COLON CA SCREENING 1950 FIT - COLON CA SCREENING 1950 FLEX SIG - COLON CA SCREENING 1950 MEDICARE AWV 12 MONTHS 1950 COVID-19 VACCINE ( season) 2024 09/03/2022, 08/09/2021, 02/12/2021, Additional history exists Respiratory Syncytial Virus (RSV) Vaccine Pt: or over 60 yrs (1 - 1-dose 75+ series) 2024 DEPRESSION SCREENING 11/30/2024 06/05/2022 SCREENING FOR DIABETES 01/04/2028 , 12/30/2024, 10/17/2021, Additional history exists DTAP/TDAP/TD VACCINES (4 - Td or Tdap) 01/29/2028 01/28/2018, 11/05/2017, 09/04/2017 COLON MONITORING 07/20/2033 07/20/2023, , 07/20/2020, Additional history exists COLONOSCOPY - COLON CA SCREENING 07/20/2033 07/20/2023, 07/20/2023, 07/20/2020, Additional history exists Colorectal Cancer Screening 07/20/2033 HEPATITIS C SCREENING Completed 08/22/2016, 016 HIB VACCINE Aged Out 01/28/2018, 05/2017, 09/04/2017 No longer eligible based on patient's age to complete this topic HEPATITIS B VACCINE Completed 03/30/2018, 03/30/2018, 11/05/2017, Additional history exists PNEUMOCOCCAL VACCINE 50+ Completed 018, 03/30/2018, 01/28/2018, Additional history exists MENINGOCOCCAL VACCINE Aged Out 07/25/2020, 017 No longer eligible based on patient's age to complete this topic ZOSTER VACCINE Completed 07/25/2020, 05/01, 09/12/2013, Additional history exists INFLUENZA VACCINE Completed 08/20/2024, , 08/04/2021, Additional history exists HPV VACCINE Aged Out No longer eligi ble based on patient's age to complete this topic MENINGOCOCCAL (Group B) VACCINE Aged Out No longer eligible based on patient's age to complete this topic Medical Devices Explanted Type Area Dental Resident Device Identifier Shelf Expiration Date Model / Serial / Lot [employer] Ureteral Stents Explanted:Qty: 2 on 06/10/2019 by Heber Vizcarra MD at [facility] Bilateral: Ureter [employer] Haile 05/02/2022 [id number] / / [id number] Procedures Procedure Name Priority Date/Time Associated Diagnosis Comments ACT LR - POCT ([facility]) Routine 01/04/2025 5:49 PM LOCATOR SPECIALIST ACT LR - POCT ([facility]) Routine 01/04/2025 5:37 PM LOCATOR SPECIALIST CCL PERCUTANEOUS CORONARY INTERVENTION Routine 01/04/2025 4:59 PM LOCATOR SPECIALIST Coronary artery disease involving coyote valley coronary artery of coyote valley heart with angina pectoris (HCC) CCL LEFT HEART CATH Routine 01/04/2025 4 :59 PM LOCATOR SPECIALIST Coronary artery disease involving coyote valley coronary artery of coyote valley heart with angina pectoris (HCC) BASIC METABOLIC PANEL (CALCIUM TOTAL) STAT 01/04/2025 11:36 AM LOCATOR SPECIALIST Coronary artery disease involving coyote valley coronary artery of coyote valley heart with angina pectoris (HCC) CBC W/O DIFFERENTIAL 12/30/2024 11:58 AM LOCATOR SPECIALIST BASIC METABOLIC PANEL (CALCIUM TOTAL) 12/30/2024 11:58 AM LOCATOR SPECIALIST EKG 12-LEAD Routine 12/27/2024 10:07 AM LOCATOR SPECIALIST Persistent atrial fibrillation (HCC) ENDOSCOPY, COLON, SCREENING Routine 07/20/2023 1:14 PM CDT INFECTIOUS DISEASE TESTING NTL Routine 08/22/2016 8:57 AM CDT from Last 3 Months or Most Recently Relevant to Health Maintenance Results * ACT LR - POCT ([facility]) (01/04/2025 5:49 PM LOCATOR SPECIALIST) Only the most recent of2 resultswithin the time period is included. ACT LR 282 See result comments sec 01/09/2025 7:16 AM LOCATOR SPECIALIST [facility] Blood BLOOD SPECIMEN / Unknown 01/04/2025 5:49 PM LOCATOR SPECIALIST 01/09/2025 7:16 AM LOCATOR SPECIALIST Narrative [facility] - 01/09/2025 7:16 AM LOCATOR SPECIALIST ACT-LR Therapeutics ranges are: Cardiac wharf labourer = 200-300 seconds Sheath pull = ACT [...] Ward MD LAB - COAGULATION OR DERABLES [facility] [address] [place] [phone], [facility] [phone] * CCL LEFT HEART CATH, CCL PERCUTANEOUS CORONARY INTERVENTION (01/04/2025 4:59 PM LOCATOR SPECIALIST) Anatomical Region Laterality Modality X-Ray Angiograph y Narrative 01/06/2025 7:41 AM LOCATOR SPECIALIST LM 30-40% (MLA 9.5 cm2). Prox RCA lesion is 50% stenosed. Negative by iFR (0.99) LVEDP: 6 mmHg. Lcx and LAD without obstructive disease but very tortuous vessels. Reason for Procedure 74 year old male with past medical history persistent a fib (on Eliquis, flecainide), PAD, HTN, CAD presents for [facility] with Dr. Ward. Patient has known multivessel [...] METABOLIC PANEL (CALCIUM TOTAL) (01/04/2025 11:36 AM LOCATOR SPECIALIST) Only the most recent of2 resultswithin the time period is included. BUN 25 7 - 26 mg/dL 01/04/2025 12:48 PM [facility] Creatinine 1.43(H) 0.71 - 1.16 mg/dL 01/04/2025 12:48 PM [facility] Sodium 140 136 - 145 mmol/L 01/04/2025 12:48 PM [facility] Potassium 4.6(H) 3.5 - 4.5 mmol/L 01/04/2025 12:48 PM [facility] Chloride 104 98 - 107 mmol/L 01/04/2025 12:48 PM [facility] CO2 27 22 - 29 mmol/L 01/04/2025 12:48 PM [facility] Glucose 88 70 - 99 mg/dL 01/04/2025 12:48 PM [facility] Calcium 9.4 8.4 - 10.2 mg/dL 01/04/2025 12:48 PM [facility] Anion Gap 9 6 - 16 01/04/2025 12:48 PM [facility] BUN/Creatinine Ratio 17 7 - 23 01/04/2025 12:48 PM [facility] Osmolality Calculated 294 275 - 295 mOsm/kg 01/04/2025 12:48 PM [facility] eGFR by CKD-EPI 51(L) >=90 mL/min/1.7 3 m2 01/04/2025 12:48 PM [facility] Blood BLOOD SPECIMEN / Unknown Venipuncture / Unknown 01/04/2025 11:36 AM LOCATOR SPECIALIST 01/04/2025 12:35 PM LOCATOR SPECIALIST Courtney KENNY LAB - CHEMISTRY ORDAmos CASTELLON Performing Organization Address City/State/[facility] Co de Phone Number [id number] [place] [address], [facility] [phone] * (ABNORMAL) CBC W/O DIFFERENTIAL (12/30/2024 11:58 AM LOCATOR SPECIALIST) White Blood Cell Count 4.8 3.8 - [...] Comment: REPORT COMMENT: FASTING:NO Test Performed at: [facility] [address] [address] GEORGE SAAVEDRA MD 12/30/2024 11:5 8 AM LOCATOR SPECIALIST 12/30/2024 12:00 PM LOCATOR SPECIALIST Courtney KENNY LAB - HEMATOLOGY ORD ERABLES Performing Organization Address [facility] Co de Phone Number [address] [address] * EKG 12-LEAD (12/27/2024 10:07 AM LOCATOR SPECIALIST) Courtney KENNY ECG ORDERABLES Performing Organization Address [facility] Co de Phone Number [facility] * ENDOSCOPY, COLON, SCREENING (07/20/2023 1:14 PM CDT) Report Endoscopy POC Endoscopy Department Report _ Patient Name: Xavier Sosa Procedure Date: 07/20/2023 1:14 PM Date of : 1950 Classification: Outpatient Gender: Male Ethnicity: Not or Race: White _ Providers: Irene Zuluaag MD: Procedure: Colonoscopy Indications: High risk colon [...] entire procedure. Procedure Code(s): --- Professional --- 03524, Colonoscopy, flexible; with biopsy, single or multiple Diagnosis Code(s): --- Professional --- Z85.048, Personal history of other malignant neoplasm of rectum, rectosigmoid junction, and anus D12.6, Benign neoplasm of colon, unspecified CPT copyright 2021 [employer]. All rights reserved. The codes documented in this report are preliminary and upon inpatient coder review may be revised to meet current compliance requirements. Irene Rojas, 07/20/2023 1:58:28 PM Note Initiated On: 07/20/2023 1:14 PM Number of Addenda: 0 [facility] [address] [place] [id number] [place] [address] 07/20/2023 1:14 PM CDT Irene Rojas MD GI PROCEDURE ORDER CALEB Performing Organization Address City/[facility]/ZIP Co de Phone Number [facility] * (ABNORMAL) INFECTIOUS DISEASE TESTING NT (08/22/2016 8:57 AM CDT) Hepatitis B Surface Antigen Negative Negative [facility] Hepatitis C Virus Antibody Negative Negative [facility] HIV-1 / HIV-2 Antibody Western Blot Negative Negative [facility] Hepatitis B Core Virus Antibody Negative Negative [facility] HTLV-I/II Antibody Negative Negative [facility] NT T. pallidum Antibody Negative Negative [facility] Cytomegalovirus Antibody Positive(A) Negative [facility] HIV-1/HCV/HBV (TAMMI) Negative Negative [facility] West Nile Virus Negative Negative [facility] [place] Antibody Negative Negative [facility] Blood specimen (specimen) BLOOD SPECIMEN / Unknown 08/22/2016 8:57 AM CDT 08/22/2016 9:31 AM CDT Narrative [facility] - 08/25/2016 10:46 AM CDT [facility]-NTL ID [id number] Performed By: [facility] [address] [place] [id number] Historical Provider LAB - CHEMISTRY O RDERABLES [facility] [address] [place] [address], [facility] [phone] from Last 3 Months or Most Recently Relevant to Health Maintenance Advance Directives Documents on File Type Date Recorded Patient Acupressure Therapist Expl anation Adv Directive/Living Will/POA 06/04/2018 7:40 [...] 1:34 PM 06/03/2018 5:21 PM Care Teams Offal Trimmer Relationship Specialty Start Date End Date Billy Jalloh MD [address] [address] [address] [place] [address] PCP - General 07/08/16 Jamie Arboleda MD [address] [place] [address] Pulmonary Disease 07/08/18 Ruben Park MD [address] [place] [address] Hematology and Oncology 07/08/18 Yoni Young, SHERRILL [address] [place] [address] Cardiology 07/08/18 Vadim Xiong MD [address] [place] [address] Gastroenterology 12/02/18
--- OUTSIDE RECORDS SUMMARY | 2025-01-25 10:54 | XMS_ITS ---
Author Organization [facility] Address [address] [place] [address] Phone Care Team Providers Care Housekeeper Name Role Phone Billy Jalloh MD Primary Care Provider [phone] Phoenix Huiin D DO Unavailable [phone] Active Problems Problem Noted Date Diagnosed Date Atrial fibrillation 11/15/2019 COPD (chronic obstructive pulmonary disease) Chronic respiratory failure with hypoxia 019 Overview (11/15/2019): Documented in medical record Centrilobular emphysema 11/15/2019 Overview (11/15/2019): Documented in medical record Rectal cancer 02/01/2019 Current Treatment and Therapy Plans No current plan information found. Past Treatment and Therapy Plans ONCOLOGY SUPPORTIVE CARE Plan Name Start Date Discontinue Date Treatment Medications Discontinue Reason Plan Provider Cycles SUPPORT - HYDRATION NO ADDITIVES - CCSCI 03/22/2019 01/24/2021 No medications scheduled. Plan Clean Up Ez, Ricardo D, DO 1 of 1 cycle started ONCOLOGY TREATMENT Plan Name Start Date Discontinue Date Treatment Medications Discontinue Reason Plan Provider Cycles RECTAL - XELODA CONCURRENT XRT - CCSCI 02/02/2019 12/03/2020 capecitabine (XELODA) Plan Clean Up Ez, Ricardo D, DO 7 (8 of 8 cycles) started
--- OUTSIDE RECORDS SUMMARY | 2025-01-25 10:54 | XMS_ITS | Encounter Summary ---
Author Organization [facility] Address [address] [place] [address] Care Team Providers Care Hot Braider Name Role Phone Billy Jalloh MD Primary Care Provider Jamie Arboleda MD Unavailable [phone] Ruben Park MD Unavailable [phone] Yoni Young Unavailable Vadim Xiong MD Unavailable [phone] Reason for Visit * Reason Onset Date Comments Question 07/13/2018 Encounter Details Date Type Department Care Team (Late st Contact Info) Description 07/13/2018 Telephone [facility] [address] [place], [place] [id number] Jamie Arboleda MD [address] OF PULMONARY/[place] [address] Question Social History Tobacco Use Types Packs/Day Years Used Date Smoking Tobacco: Former Cigarettes Smokeless Tobacco: Never Alcohol Use Standard Drinks/Week Comments Yes 0.8 (1 standard drink = 0.6 oz p ure alcohol) Sex and Gender Information Value Date Recorded Sex Assigned at Male 09/26/2021 11:03 AM CDT Gender Identity Male 09/26/2021 11:04 AM CDT Sexual Orientation Straight 09/26/2021 11 :04 AM CDT documented as of this encounter Functional Status Functional Status Response Date of Assess ment Is person deaf or have serious hearing difficult y? No 05/31/2018 Is person blind or have serious difficulty seein g? No 05/31/2018 Does person have serious dif ficulty walking/climbing stairs? No 05/31/2018 Does person have difficulty dressing/bathing? No 05/31/2018 Does person have difficulty doing errands alone? No 05/31/2018 Cognitive Status Response Date of Assessm ent Does person have difficulty concentrating/remembering/making decisions? No 05/31/2018 documented as of this encounter Miscellaneous Notes * Telephone Encounter - Ami Davis - 07/13/2018 8:38 AM CDT Patient's Leia called office stated she was directed and expecting a important call today from Dr Arboleda today. Patient's phone number verified. documented in this encounter Plan of Treatment Upcoming Encounters Date Type Department Care Team (Late st Contact Info) Description 03/23/2025 11:00 AM CDT Office Visit [facility] - Cardiology [address] [address] Clifford Nolan MD [address] [address] 03/27/2025 11:00 AM CDT Office Visit [facility] - Dermatology [address] [place] [address], [place] [phone] Rosie Quigley MD [address] [place] [address] [address] [place] [address] 03/30/2025 11:00 AM CDT Office Visit [facility] - Pulmonology [address] [place] [address], [place] [address] Jamie Arboleda MD [address] [facility] 2[address] DIV OF PULMONARY/[place] [address] 08/08/2025 10:45 AM CDT Office Visit [facility] - General Surgery [address] [facility], [place] [phone] Irene Rojas MD [address] [facility] [address] [place] [address] documented as of this encounter Visit Diagnoses Not on filedocumented in this encounter Care Teams Hot Braider Relationship Specialty Start Date End Date Billy Jalloh MD [facility] [address] [place] [address] PCP - General 07/08/16 Jamie Arboleda MD [address] [place] [address] Pulmonary Disease 07/08/18 Ruben Park MD [address] [place] [address] Hematology and Oncology 07/08/18 Yoni Young, SHERRILL [address] [place] [address] Cardiology 07/08/18 Vadim Xiong MD [address] [place] [address] Gastroenterology 12/02/18 documented as of this encounter
--- OUTSIDE RECORDS SUMMARY | 2025-01-25 10:54 | XMS_ITS | Encounter Summary ---
Author Organization [facility] Address [address] [place] [address] Care Team Providers Care Commercial Portfolio Manager Name Role Phone Billy Jalloh MD Primary Care Provider Jamie Arboleda MD Unavailable Ruben Park MD Unavailable [phone] Yoni Young CD Unavailable Vadim Xiong MD Unavailable [phone] Encounter Details Date Type Department Care Team (Late st Contact Info) Description 01/08/2015 Lab Requisition [facility] - Lab Cytogenetics [address] [place] [address] Ruben Park MD [address] [place] [address] Rd [address] [place], [place] [id number] Waldenstrom's disease (HCC) Social History Tobacco Use Types Packs/Day Years Used Date Smoking Tobacco: Never Assessed Sex and Gender Information Value Date Recorded Sex Assigned at Male 09/26/2021 11:03 AM CDT Gender Identity Male 09/26/2021 11:04 AM CDT Sexual Orientation Straight 09/26/2021 11 :04 AM CDT documented as of this encounter Plan of Treatment Upcoming Encounters Date Type Department Care Team (Late st Contact Info) Description 03/23/2025 11:00 AM CDT Office Visit [facility] - Cardiology [address] [facility] [address] [place] [address] Clifford Nolan MD [address] [facility], [facility] [address] [place] [address] 03/27/2025 11:00 AM CDT Office Visit [facility] - Dermatology [address] [place] [address], [place] [address] Rosie Quigley MD [address] [place] [address] 3[address] [place] [address] 03/30/2025 11:00 AM CDT Office Visit [facility] - Pulmonology [address] [place] [address], [place] [address] Jamie Arboleda MD [address] [place] [address] 2L DIV OF PULMONARY/[place] [address] 08/08/2025 10:45 AM CDT Office Visit [facility] - General Surgery [address] [place] [address], [place] [address] Irene Rojas MD [address] [place] [address] [address] [place] [address] documented as of this encounter Procedures Procedure Name Priority Date/Time Associated Diagnosis Comments CYTOGENETICS CANCER PANEL Routine 01/08/2015 1:45 PM DRIFT MINER Waldenstrom's disease [ICD-9-CM] documented in this encounter Results * CYTOGENETICS CANCER PANEL (01/08/2015 1:45 PM DRIFT MINER) Indication for Study Waldenstrom's Disease FISH Lymphoma panel requested by physician 7:21 AM DRIFT MINER [facility] CYTOGENOMIC [facility] Results Cytogenetics Analysis of 200 interphase cells hybridized to dual breakapart ALK, BCL6, C-MYC, MALT and dual fusion CCND1, BCL2, and MYC specific fluorescent labeled probes* directed onto 2p23, 3q27, 8q24, 18q21 and 11q13, 18q21 and 8q24 showed the following results: nuc ashu(ALKx2)[196/200], (BCL6x2)[191/200],(C EP8,C-MYC,IGH)x2[177 /200],(C-MYCx2)[191/ 200],(CCND1,IGH)x2[1 90/200],(UUVL4z2)[19 3/200],(IGH,BCL2)x2[ 190/200] Normal Note: The remaining percentage of cells have signals that either represent G1 cells or endoreduplicated cells of no significance. Analysis and count of 20 cells (8 cells karyotyped, GTL-banding) from 24-hour unstimulated and 72-hour Interleukin stimulated bone marrow cultures showed the following chromosome pattern: 46,XY[20] 5 7:21 AM [facility] CYTOGENOMIC LAB Interpretation FISH was negative for all the probes of the lymphoma panel. Chromosome analysis is in progress. 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 5 7:21 AM [facility] CYTOGENOMIC [facility] Preliminary result electronically signed by Paula Umaña, PhD [facility]BM[facility] on 01/11/2015 at 10:34 AM Disclaimer *This test was developed, and its performance characteristics determined by [facility] Cytogenetics [facility] as required by CLIA '88 Regulations. It has not been cleared or approved for specific uses by the U.S. Food and Drug Administration. The FDA has determined that such clearance or approval is not necessary. This test is used for clinical purposes. It should not be reported as investigational or for research. --------- Notes for FISH probes: 1- At the pretreatment level, the cutoff values for trisomy is 1%, dual breakapart is 3 to 5%, double fusion is 1%, and monosomy/deletion is 5 to 8% for no FFPE specimen and 20% for FFPE specimen. Efficiency of the probe intensity was acceptable overall. 2- At the post-treatment level, any identified percentage found below the pretreatment cutoff values could not be interpreted unequivocally and needs to be correlated with clinicopathological and clinical findings. At the post treatment level, a low percentage could either represent an actual minimal residual disease or an actual nature of normal cell division. 3- Cutoff values are combined for all different probes forming a range of percentages which covers low/high ends of each probe that fluctuate due to environmental conditions. Percentages that are close to the cutoff values have to be interpreted in correlation with clinicopathological and clinical findings. 4- An additional validation is performed by correlating pathology with cytogenetic findings. 5 7:21 AM [facility] CYTOGENOMIC [facility] Client Information [facility] - [id number] [facility] Lab Number: [id number] 5 7:21 AM [facility] CYTOGENOMIC LAB Other BONE MARROW SPECIMEN / Unknown 01/08/2015 1:45 PM DRIFT MINER 01/08/2015 1:45 PM [facility] Ruben Park MD LAB - PATHOLOGY/CY DILSHAD ORDERABLES [facility] CYTOGENOMIC LAB [address] [place] [address] documented in this encounter Visit Diagnoses Diagnosis Waldenstrom's disease Macroglobulinemia documented in this encounter Care Teams Commercial Portfolio Manager Relationship Specialty Start Date End Date Billy Jalloh MD [address] [place] [address] PCP - General 07/08/16 Jamie Arboleda MD [address] [place] [address] Pulmonary Disease 07/08/18 Ruben Park MD [address] [place] [address] Hematology and Oncology 07/08/18 Yoni Young, CD [address] [place] [address] Cardiology 07/08/18 Vadim Xiong MD [address] [place] [address] Gastroenterology 12/02/18 documented as of this encounter
--- OUTSIDE RECORDS SUMMARY | 2025-01-25 10:54 | XMS_ITS | Encounter Summary ---
Author Organization [facility] Address [address] [place] [address] Care Team Providers Care Pharmacists Name Role Phone Billy Jalloh MD Primary Care Provider Jamie Arboleda MD Unavailable Ruben Park MD Unavailable Yoni Young Unavailable [phone] Vadim Xiong MD Unavailable [phone] Encounter Details Date Type Department Care Team (Latest Contact Info) Description 07/28/2016 Lab Requisition [facility] - Lab Cytogenetics [address] [place] [address] Nicolas Arevalo MD [address] [place] [address] Waldenstrom macroglobulinemia (HCC) Social History Tobacco Use Types Packs/Day [...] Description 03/23/2025 11:00 AM CDT Office Visit [facility] - Cardiology [address] [facility] [place] [address] [place] [address] Clifford Nolan MD [address] [facility], [facility] [address] [place] [address] 03/27/2025 11:00 AM CDT Office Visit [facility] - Dermatology [address] [place] [address], [place] [phone] Rosie Quigley MD [address] [place] [address] [address] [place] [address] 03/30/2025 11:00 AM CDT Office Visit [facility] - Pulmonology [address] [place] [address], [place] [address] Jamie Arboleda MD [address] [place] [address] 2[address] DIV OF PULMONARY/[place] [address] 08/08/2025 10:45 AM CDT Office Visit [facility] - General Surgery [address] [place] [address], [place] [address] Irene Rojas MD [address] [place] [address] [address] [place] [address] documented as of this encounter Procedures Procedure Name Priority Date/Time Associated Diagnosis Comments CYTOGENETICS CANCER PANEL Routine 07/28/2016 10:00 AM CDT documented in this encounter Results * CYTOGENETICS CANCER PANEL (07/28/2016 10:00 AM CDT) Indication for Study Waldenstrom Macroglobulinemia 6 1:21 PM CDT [facility] CYTOGENOMIC [facility] Results Cytogenetics Analysis and count of 20 cells (8 cells karyotyped, GTL-banding) from 24-hour unstimulated and 72-hour Interleukin stimulated bone marrow cultures showed the following chromosome pattern: 46,XY[20] 6 1:21 PM [facility] CYTOGENOMIC LAB Interpretation Male chromosome analysis showing 46,XY with no evidence for any clonal structural or numerical abnormality in all cells examined at 400 average band resolution. 6 1:21 PM [facility] MO[facility] CYTOGENOMIC LAB Historical Cytogenomic Report [id number] on 03/22/2015 Results Analysis and count of 20 cells (7 cells karyotyped, GTL-banding) from 72-hour Interleukin stimulated bone marrow cultures showed the following chromosome pattern: 46,XY[20] Interpretation Male chromosome analysis showing 46,XY with no evidence for any clonal structural or numerical abnormality in all cells examined at 400 average band resolution. at 0724 BF [id number] from 01/08/2015 Results Analysis of 200 interphase cells hybridized to dual breakapart ALK, BCL6, C-MYC, MALT and dual fusion CCND1, BCL2, and MYC specific fluorescent labeled probes* directed onto 2p23, 3q27, 8q24, 18q21 and 11q13, 18q21 and 8q24 showed the following results: nuc ashu(ALKx2)[196/200] ,(BCL6x2)[191/200], (CEP8,C-MYC,IGH)x2[ 177/200],(C-MYCx2)[ 191/200],(CCND1,IGH )x2[190/200],(MALT1 x2)[193/200],(IGH,B CL2)x2[190/200] Normal Note: The remaining percentage of cells have signals that either represent G1 cells or endoreduplicated cells of no significance. Analysis and count of 20 cells (8 cells karyotyped, GTL-banding) from 24-hour unstimulated and 72-hour Interleukin stimulated bone marrow cultures showed the following chromosome pattern: 46,XY[20] Interpretation FISH was negative for all the probes of the lymphoma panel. Chromosome analysis is in progress. 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 6 1:21 PM CDT [facility] CYTOGENOMIC [facility] Client Information [facility] - [id number] [facility] lab numbers: [id number] ; [id number] 6 1:21 PM CDT [facility] CYTOGENOM[facility] Other BONE MARROW SPECIMEN / Unknown 07/28/2016 10:00 AM CDT 07/28/2016 1:24 PM CDT Nicolas Arevalo MD LAB - PATHOLOGY/CYTO LOGY ORDERABLES Performing Organization Address City/State/[facility] Co de Phone Number [facility] CYTO[facility]OMIC [facility] [address] [place] [address] documented in this encounter Visit Diagnoses Diagnosis Waldenstrom macroglobulinemia Macroglobulinemia documented in this encounter Care Teams Pharmacists Relationship Specialty Start Date End Date Billy Jalloh MD [address] [place] [address] 23 [place] [address] PCP - General 07/08/16 Jamie Arboleda MD [address] [place] [address] Pulmonary Disease 07/08/18 Ruben Park MD [address] [place] [address] Hematology and Oncology 07/08/18 Yoni Young, SHERRILL [address] [place] [address] Cardiology 07/08/18 Vadim Xiong MD [address] [place] [address] Gastroenterology 12/02/18 documented as of this encounter
--- OUTSIDE RECORDS SUMMARY | 2025-01-25 10:54 | XMS_ITS | Encounter Summary ---
Author Organization [facility] Address [address] [facility] [place] [address] Care Team Providers Care Freelance Writer Name Role Phone Billy Jalloh MD Primary Care Provider Jamie Arboleda MD Unavailable [phone] Ruben Park MD Unavailable Yoni Young Unavailable Vadim Xiong MD Unavailable [phone] Encounter Details Date Type Department Care Team (Latest Contact Info) Description 01/05/[address] [facility] - Lab Cytogenetics [address] [place] [address] Nicolas Arevalo MD [address] [place] [address] Waldenstrom macroglobulinemia (HCC) Social History Tobacco Use [...] Description 03/23/2025 11:00 AM CDT Office Visit [facility] - Cardiology [address] [facility], [facility] 1[address] [place] [address] Clifford Nolan MD [address] [facility] [place] [address] [place] [address] 03/27/2025 11:00 AM CDT Office Visit [facility] - Dermatology [address] [place] [address], [place] [address] Rosie Quigley MD [address] [place] [address] [address] [place] [address] 03/30/2025 11:00 AM CDT Office Visit [facility] - Pulmonology [address] [place] [address], [place] [address] Jamie Arboleda MD [address] [place] [address] 2L DIV OF PULMONARY/[place] [address] 08/08/2025 10:45 AM CDT Office Visit [facility] - General Surgery [address] [place] [address], [place] [address] Irene Rojas MD [address] [place] [address] [address] [place] [address] documented as of this encounter Procedures Procedure Name Priority Date/Time Associated Diagnosis Comments CYTOGENETICS CANCER PANEL Routine 01/05/2017 2:00 PM XEROX MACHINE MECHANIC Waldenstrom macroglobulinemia documented in this encounter Results * CYTOGENETICS CANCER PANEL (01/05/2017 2:00 PM XEROX MACHINE MECHANIC) Indication for Study Waldenstrom Macroglobulinemia 10:45 PM XEROX MACHINE MECHANIC [facility] CYTOGENOMIC [facility] Results Cytogenetics Analysis and count of 6 cells (6 cells karyotyped, GTL-banding) from 72-hour Interleukin stimulated bone marrow cultures showed the following chromosome pattern: 46,XY[6] 7 10:45 PM [facility] CYTOGENOMIC LAB Interpretation Male chromosome analysis showing 46,XY with no evidence for any clonal structural or numerical abnormality in all cells examined at 400 average band resolution. This study is suboptimal because the number of dividing cells is less than 20. This was caused by a low count of WBC. No prior FISH abnormality (FISH of lymphoma panel was negative in 2014) was identified. Therefore, no FISH of prior abnormality was performed. 7 10:45 PM [facility] CYTOGENOMIC LAB Historical Cytogenomic Report [id number] on 2016 Results Analysis and count of 20 cells (8 cells karyotyped, GTL-banding) from 24-hour unstimulated and 72-hour Interleukin stimulated bone marrow cultures showed the following chromosome pattern: 46,XY[20] . Interpretation Male chromosome analysis showing 46,XY with no evidence for any clonal structural or numerical abnormality in all cells examined at 400 average band resolution. at 1321 . Historical Cytogenomic Report [id number] on 03/22/2015 Results Analysis and count of 20 cells (7 cells karyotyped, GTL-banding) from 72-hour Interleukin stimulated bone marrow cultures showed the following chromosome pattern: 46,XY[20] Interpretation Male chromosome analysis showing 46,XY with no evidence for any clonal structural or numerical abnormality in all cells examined at 400 average band resolution. at 0724 BF [id number] from 01/08/2015 Results Analysis of 200 interphase [...] cells examined at 400 average band resolution. . 7 10:45 PM [facility] CYTOGENOMIC [facility] Client Information [facility] - [id number] [facility] Lab #: [id number] CHRFISH, [id number] CHROBM 7 10:45 PM [facility] CYTOGENOMIC [facility] Embedded Images 7 10:45 PM [facility] CY[facility]GENOM[facility] Other BONE MARROW SPECIMEN / Unknown 01/05/2017 2:00 PM XEROX MACHINE MECHANIC 01/05/2017 3:35 PM [facility] Nicolas Arevalo MD LAB - PATHOLOGY/CYTO LOGY ORDERABLES [facility] CYTOGENOMIC LAB [address] [facility] [address] documented in this encounter Visit Diagnoses Diagnosis Waldenstrom macroglobulinemia Macroglobulinemia documented in this encounter Care Teams Freelance Writer Relationship Specialty Start Date End Date Billy Jalloh MD [address] [place] [address] [address] [place] [address] PCP - General 07/08/16 Jamie Arboleda MD [address] [place] [address] Pulmonary Disease 07/08/18 Ruben Park MD [address] [place] [address] Hematology and Oncology 07/08/18 Yoni Young, SHERRILL [address] [place] [address] Cardiology 07/08/18 Vadim Xiong MD [address] [place] [address] Gastroenterology 12/02/18 documented as of this encounter
--- OUTSIDE RECORDS SUMMARY | 2025-01-25 10:54 | XMS_ITS | Encounter Summary ---
Author Organization [facility] Address [address] [facility] [place] [address] Care Team Providers Care Wood Machine Carver Name Role Phone Billy Jalloh MD Primary Care Provider [phone] Jamie Arboleda MD Unavailable [phone] Ruben Park MD Unavailable Yoni Young Unavailable [phone] Vadim Xiong MD Unavailable [phone] Encounter Details Date Type Department Care Team (Late st Contact Info) Description 11/07/2024 Telephone [facility] - Pulmonology [address] [place] [address], [place] [phone] Jamie Arboleda MD [address] [place] [address] 2L DIV OF PULMONARY/[place] [address] Social History Tobacco Use Types Packs/Day Years Used Date Smoking Tobacco: Former Cigarettes 2 30 0 04/1970 - 04/2000 Smokeless Tobacco: Never Alcohol Use Standard Drinks/Week [...] or have serious hearing difficult y? No 07/20/2023 Is person blind or have serious difficulty seein g? No 07/20/2023 Does person have serious dif ficulty walking/climbing stairs? No 07/20/2023 Does person have difficulty dressing/bathing? No 07/20/2023 Does person have difficulty doing errands alone? No 07/20/2023 Cognitive Status Response Date of Assessm ent Does person have difficulty concentrating/remembering/making decisions? No 07/20/2023 documented as of this encounter Miscellaneous Notes * Telephone Encounter - Mercedes Mckeon - 11/07/2024 3:17 PM CST Current Provider: Dr. Jamie Arboleda Reason for Call: Mr. Xavier Sosa's called re: the TRILOGY sample you gave him at the last office visit. It did work fine for him, better than the inhaler, however, it is very expensive. Dr. Arboleda said there are a few other medications he can give him to try the effectiveness them. Please advise, give he and his Leia a call to see what you may want to try next. Patient Call Back Number: [phone] RPROOFING SUPERVISOR documented in this encounter Plan of Treatment Upcoming Encounters Date Type Department Care Team (Late st Contact Info) Description 03/23/2025 11:00 AM CDT Office Visit [facility] - Cardiology [address] [facility] [place] [address] [place] [address] Clifford Nolan MD [address] [facility] [address] [place] [address] 03/27/2025 11:00 AM CDT Office Visit [facility] - Dermatology [address] [place] [address], [place] [phone] Rosie Quigley MD [address] [place] [address] [address] [place] [address] 03/30/2025 11:00 AM CDT Office Visit [facility] - Pulmonology [address] [place] [address], [place] [address] Jamie Arboleda MD [address] [place] [address] 2L DIV OF PULMONARY/[place] [address] 08/08/2025 10:45 AM CDT Office Visit [facility] - General Surgery [address] [place] [address], [place] [address] Irene Rojas MD [address] [place] [address] [address] [place] [address] documented as of this encounter Visit Diagnoses Not on filedocumented in this encounter Care Teams Wood Machine Carver Relationship Specialty Start Date End Date Billy Jalloh MD [address] [place] [address] PCP - General 07/08/16 Jamie Arboleda MD [address] [place] [address] Pulmonary Disease 07/08/18 Ruben Park MD [address] [place] [address] Hematology and Oncology 07/08/18 Yoni Young CD [address] [place] [address] Cardiology 07/08/18 Vadim Xiong MD [address] [place] [id number] Gastroenterology 12/02/18 documented as of this encounter
--- OUTSIDE RECORDS SUMMARY | 2025-01-25 10:54 | XMS_ITS | Encounter Summary ---
Author Organization [facility] Address [address] [place] [address] Care Team Providers Care Cushion Stuffer Name Role Phone Billy Jalloh MD Primary Care Provider Jamie Arboleda MD Unavailable [phone] Ruben Park MD Unavailable Yoni Young CD Unavailable Vadim Xiong MD Unavailable [phone] Encounter Details Date Type Department Care Team (Latest Contact Info) Description 03/16/2015 Lab Requisition [facility] - Lab Cytogenetics [address] [place] [address] Ruben Park MD [address] [place] [address] Rd [address] [place] [address] Waldenstrom macroglobulinemia (HCC) Social History Tobacco Use [...] Description 03/23/2025 11:00 AM CDT Office Visit [facility] - Cardiology [address] [facility], [facility] [address] [place] [address] Clifford Nolan MD [address] [facility], [facility] [address] [place] [address] 03/27/2025 11:00 AM CDT Office Visit [facility] - Dermatology [address] [place] [address], [place] [phone] Rosie Quigley MD [address] [place] [address] [address] [place] [address] 03/30/2025 11:00 AM CDT Office Visit [facility] - Pulmonology [address] [place] [address], [place] [phone] Jamie Arboleda MD [address] [place] [address] 2L DIV OF PULMONARY/[place] [address] 08/08/2025 10:45 AM CDT Office Visit [facility] - General Surgery [address] [place] [address], [place] [phone] Irene Rojas MD [address] [place] [address] [address] [place] [phone] documented as of this encounter Procedures Procedure Name Priority Date/Time Associated Diagnosis Comments CYTOGENETICS CANCER PANEL Routine 03/16/2015 12:00 AM CDT Waldenstrom macroglobulinemia [ICD-9-CM] documented in this encounter Results * CYTOGENETICS CANCER PANEL (03/16/2015 12:00 AM CDT) Indication for Study Waldenstrom's Disease 5 7:24 AM CDT [facility]ULAR CYTOGENOMIC LAB Results Cytogenetics Analysis and count of 20 cells (7 cells karyotyped, GTL-banding) from 72-hour Interleukin stimulated bone marrow cultures showed the following chromosome pattern: 46,XY[20] 5 7:24 AM [facility] MOLEC[facility] CYTOGENOMIC LAB Interpretation Male chromosome analysis showing 46,XY with no evidence for any clonal structural or numerical abnormality in all cells examined at 400 average band resolution. 5 7:24 AM [facility] MOLECULAR CYTOGENOMIC LAB Historical Cytogenomic Report [id number] from 01/08/2015 Results Analysis of 200 interphase cells hybridized to dual breakapart ALK, BCL6, C-MYC, MALT and dual fusion CCND1, BCL2, and MYC specific fluorescent labeled probes* directed onto 2p23, 3q27, 8q24, 18q21 and 11q13, 18q21 and 8q24 showed the following results: nuc ashu(ALKx2)[196/200 ],(BCL6x2)[191/200 ],(CEP8,C-MYC,IGH) x2[177/200],(C-MYC x2)[191/200],(CCND 1,IGH)x2[190/200], (FDBW1m9)[193/200] ,(IGH,BCL2)x2[190/ 200] Normal Note: The remaining percentage of cells have signals that either represent G1 cells or endoreduplicated cells of no significance. Analysis and count of 20 cells (8 cells karyotyped, GTL-banding) from 24-hour unstimulated and 72-hour Interleukin stimulated bone marrow cultures showed the following chromosome pattern: 46,XY[20] . Interpretation FISH was negative for all the probes of the lymphoma panel. Chromosome analysis is in progress. 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 5 7:24 AM CDT [facility] MOLECULAR CYTOGENOMIC LAB Client Information [facility] - [id number] [facility] Lab Numbers: [id number] FISH, [id number] chrom 5 7:24 AM CDT [facility] MOLECULAR CYTOGENOMIC LAB Other BONE MARROW SPECIMEN / Unknown 03/16/2015 03/16/2015 2:50 PM CDT Ruben Park MD LAB - PATHOLOGY/CY TOLOGY ORDERABLES [facility] MOLECULAR CYTOGENOMIC LAB [address] [facility] [place] [address] documented in this encounter Visit Diagnoses Diagnosis Waldenstrom macroglobulinemia Macroglobulinemia documented in this encounter Care Teams Cushion Stuffer Relationship Specialty Start Date End Date Billy Jalloh MD [address] [place] [address] 23 [place] [address] PCP - General 07/08/16 Jamie Arboleda MD [address] [place] [address] Pulmonary Disease 07/08/18 Ruben Park MD [address] [place] [address] Hematology and Oncology 07/08/18 Yoni Young, [place] [address] [place] [address] Cardiology 07/08/18 Vadim Xiong MD [address] [place] [address] Gastroenterology 12/02/18 documented as of this encounter
--- OUTSIDE RECORDS SUMMARY | 2025-01-25 10:54 | XMS_ITS | Encounter Summary ---
Author Organization [facility] Address [address] [facility] [address] [place] [address] Care Team Providers Care Healthcare Economics Manager Name Role Phone Billy Jalloh MD Primary Care Provider Jamie Arboleda MD Unavailable [phone] Ruben Park MD Unavailable Yoni Young CD Unavailable Vadim Xiong MD Unavailable [phone] Encounter Details Date Type Department Care Team (Late st Contact Info) Description 06/30/2019 Telephone [facility] [address] [place] [address] Dominic Buitrago MD [address] [place] [address] Social History Tobacco Use Types Packs/Day Years Used Date Smoking Tobacco: Former Cigarettes 2 30 0 04/1970 - 04/2000 Smokeless Tobacco: Never Alcohol Use Standard Drinks/Week Comments No 0.8 (1 standard drink = 0.6 oz [...] or have serious hearing difficult y? No 06/11/2019 Is person blind or have serious difficulty seein g? No 06/11/2019 Does person have serious dif ficulty walking/climbing stairs? No 06/11/2019 Does person have difficulty dressing/bathing? No 06/11/2019 Does person have difficulty doing errands alone? No 06/11/2019 Cognitive Status Response Date of Assessm ent Does person have difficulty concentrating/remembering/making decisions? No 06/11/2019 documented as of this encounter Miscellaneous Notes * Telephone Encounter - Leyda Pillai - 06/30/2019 10:19 AM CDT Mrs. Sosa returned a call that she missed about getting a prescription for Lovenox for Mr. Sosa. She can be reached at [phone]. documented in this encounter Plan of Treatment Upcoming Encounters Date Type Department Care Team (Late st Contact Info) Description 03/23/2025 11:00 AM CDT Office Visit [facility] - Cardiology [address] [address] Clifford Nolan MD [address] [place] [address] 03/27/2025 11:00 AM CDT Office Visit [facility] - Dermatology [address] [place] [address], [place] [phone] Rosie Quigley MD [address] [place] [address] 3 [place] [address] 03/30/2025 11:00 AM CDT Office Visit [facility] - Pulmonology [address] [place] [address], [place] [phone] Jamie Arboleda MD [address] [facility] 2L DIV OF PULMONARY/[place] [address] 08/08/2025 10:45 AM CDT Office Visit [facility] - General Surgery [address] [facility], [place] [address] Irene Rojas MD [address] [facility] [address] [place] [address] documented as of this encounter Visit Diagnoses Not on filedocumented in this encounter Care Teams Healthcare Economics Manager Relationship Specialty Start Date End Date Billy Jalloh MD [address] [place] [address] 23 [place] [address] PCP - General 07/08/16 Jamie Arboleda MD [address] [place] [address] Pulmonary Disease 07/08/18 Ruben Park MD [address] [place] [address] Hematology and Oncology 07/08/18 Yoni Young, SHERRILL [address] [place] [address] Cardiology 07/08/18 Vadim Xiong MD [address] [place] [address] Gastroenterology 12/02/18 documented as of this encounter
--- OUTSIDE RECORDS SUMMARY | 2025-01-25 10:54 | XMS_ITS | Clinical Summary ---
Author Organization [facility] Address [address] [place] [address] Phone Care Team Providers Care Electrical Machinist Name Role Phone Billy Jalloh MD Primary Care Provider [phone] Ricardo Hui DO Unavailable [phone] Allergies Active Allergy Reactions Criticality Noted Date Comments Gabapentin Rash Medium 03/15/2015 Medications LYRICA 150 MG Capsule 3 times daily. 9 Active flecainide (TAMBOCOR) 150 MG Tablet 2 times daily. 8 Active Multiple Vitamins-Minera ls (MULTIVITAMIN PO) Take by mouth. Activ e Cholecalciferol (VITAMIN D PO) Take by mouth. 3 times per week Active docusate sodium (COLACE) 100 MG Capsule Take 100 mg by mouth 2 times daily. Active metoprolol Succinate (TOPROL-XL) 25 MG TABLET SR 24 HR Take 25 mg by mouth. 1 Active albuterol 108 (90 Base) MCG/ACT Aerosol Solution Active Eliquis 5 MG Tablet 2 times daily. 2 Active fluticasone (FLONASE) 50 MCG/ACT Suspension Flonase Allergy Relief 50 mcg/actuation nasal spray,suspensio n Inhale 2 sprays every day by intranasal route. 6 Active hydroCHLOROthia zide 25 MG Tablet 12.5 mg. 1/2 tablet daily 2 Active valACYclovir (VALTREX) 500 MG Tablet 2 Active Active Problems Problem Noted Date Diagnosed Date Atrial fibrillation 11/15/2019 COPD (chronic obstructive pulmonary disease) Chronic respiratory failure with hypoxia 019 Overview (11/15/2019): Documented in medical record Centrilobular emphysema 11/15/2019 Overview (11/15/2019): Documented in medical record Rectal cancer 02/01/2019 Immunizations Immunization Administration Dates Next Due Covid-19, Mrna, Lnp-s, Pf, 3 0 Mcg/0.3 Ml Dose (Zipwhip) 01/22/2021 Hepatitis B Vaccine 03/30/2018,11/05/2017,2016 Influenza, High-dose, Quadrivalent 01/05/2017 Influenza, Quadrivalent, Adjuvanted 09/03/2020 Influenza, Seasonal, Injecta ble, Undefined 09/06/2013 Influenza, high-dose, trivalent, PF 10/02/2019,08/12/2018,08/24/2017,09/02 Meningococcal MCV4O 07/25/2020 Pneumococcal PCV, Unspecifie d Formulation 03/30/2018,07/31/2014 Pneumococcal Vaccine - 13 Valent 07/04/2015 Polio Vaccine,unspecified Formulation 01/28/2018 ,11/05/2017,09/04/2017 TDAP Vaccine 01/28/2018,11/05/2017,09/04/2017 Zoster Vaccine Recombinant 07/25/2020,05/25/2020 Zoster Vaccine, live 09/12/2013,08/30/2012 Family History Medical History Relation Name Comments Chronic Obstructive Pulmonary Disease Brother Diabetes Daughter Lung Cancer Father Cancer Sister Lung Cancer Sister Relation Name Status Comments Brother Daughter Father Sister Social History Tobacco Use Types Packs/Day Years Used Date Smoking Tobacco: Former Cigarettes Smokeless Tobacco: Never Tobacco Cessation:Counseling Given: Not Answered Alcohol Use Standard Drinks/Week Comments Yes 0 (1 standard drink = 0.6 oz pur e alcohol) PHQ-2 Answer Date Recorded Total Score - Questions 1-9 0 05/30 Sex and Gender Information Value Date Recorded Sex Assigned at Not on file Legal Sex 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 Gender Identity Not on file Sexual Orientation Not on file Last Filed Vital Signs Vital Sign Reading Time Taken Comments Blood Pressure 122/6 06/07/2024 10:32 AM CDT Pulse 68 06/07/2024 10:32 AM CDT Temperature 36.4 C (97.5 F) 06/07/2024 10:32 AM CDT Respiratory Rate 18 06/07/2024 10:3 2 AM CDT Oxygen Saturation 92% 06/07/2024 10: 32 AM CDT Inhaled Oxygen Concentration - - Weight 101.2 kg (223 lb 1.6 oz) 024 10:32 AM CDT Height 193 cm (6' 4 ) 06/07/2024 10:32 AM CDT Body Mass Index 27.16 06/07/2024 10:32 AM CDT Plan of Treatment Health Maintenance Due Date Last Done Comments Hepatitis C Virus (HCV) Screening 1950 Cologuard 1999 Immunochemical Fecal Occult Blood 1999 Pneumococcal Immunization (50+ years) (2 of 2 - PPSV23) 05/25/2018 03/30/2018, 01/28/2018, 11/05/2017, Additional history exists Influenza Immunization (#1) 07/31/202408/30, 09/03/2022, 08/04/2021, Additional history exists SARS-COV-2 Immunization ( season) 2024 09/03/2022, 03/03/2022, 08/09/2021, Additional history exists Td Immunization Every 10 Years (Adults With 1 Tdap) 01/29/2028 01/28/2018, 11/05/2017, 09/04/2017 Colonoscopy 05/20/2029 05/20/2019 Colorectal Cancer Screening 05/20/2029 05/20/2019 DTaP/Tdap/Td Immunization Discontinued 2017, 01/28/2018, 11/05/2017, Additional history exists Hepatitis B Immunization Completed 018, 11/05/2017, 11/05/2017, Additional history exists Pneumococcal Immunization Combined Discontinued 03/30/2018, 01/28/2018, 11/05/2017, Additional history exists Meningococcal Immunization (ACWY) Aged Out 07/25/2020, 09/04/2017 No longer eligibl e based on patient's age to complete this topic Zoster Immunization Completed 07/25/2020, 05/25/2020, 09/12/2013, Additional history exists Respiratory Syncytial Virus (RSV) Immunization (Adult) Completed 10/05/2023 Rotavirus Immunization Aged Out No lo nger eligible based on patient's age to complete this topic Insurance MEDICARE [facility] Advance Directives * Full Code (Latest Code Status on File) Date Activated Date Inactivated Comments 06/17/2021 11:28 AM per 06/10/21 Davis Hui office visit note. Care Teams Electrical Machinist Relationship Specialty Start Date End Date Billy Jalloh MD [address] [facility] [address] [place] [address] PCP - General Internal Medicine 01/27/19 Ricardo Hui DO [address] [facility] [address] [place] [address] Consulting Physician Oncology 02/15/19
--- OUTSIDE RECORDS SUMMARY | 2025-01-25 10:54 | XMS_ITS | Encounter Summary ---
Author Organization [facility] Address [address] [address] Care Team Providers Care Psychology Instructor Name Role Phone Billy Jalloh MD Primary Care Provider Jamie Arboleda MD Unavailable [phone] Ruben Park MD Unavailable Yoni Young CD Unavailable [phone] Vadim Xiong MD Unavailable [phone] Reason for Visit * Reason Onset Date Comments Surgical Followup 07/21/2019 pt's home [facility] nurse call and wanted to let someone konw that he still has one suture left in the rectal area - does that need to be removed Encounter Details Date Type Department Care Team (Late st Contact Info) Description 07/21/2019 Telephone [facility] [address] [place] [address] Dominic Buitrago MD [address] [place] [address] Surgical Followup (pt's home health nurse call and wanted to let someone konw that he still has one suture left in the rectal area - does that need to be removed) Social History Tobacco Use Types Packs/Day Years [...] encounter Miscellaneous Notes * Telephone Encounter - Carlton Nuñez MD - 07/21/2019 5:45 PM CDT Called home health nurse back. Asked her if she was comfortable removing sutures, she said no. We will remove the remaining suture at his next clinic appointment. Patient is not bothered by the suture. Carlton Nuñez MD 07/21/2019 5:46 PM Plastic Surgery Resident documented in this encounter Plan of Treatment Upcoming Encounters Date Type Department Care Team (Late st Contact Info) Description 03/23/2025 11:00 AM CDT Office Visit [facility] - Cardiology [address] [phone] Clifford Nolan MD [address] [facility] [place] [address] 03/27/2025 11:00 AM CDT Office Visit [facility] Derm[facility]ology [facility] [facility] [place] [address] Rosie Quigley MD [address] [place] [address] 3L [place] [address] 03/30/2025 11:00 AM CDT Office Visit [facility] - Pulmonology [address] [place] [address], [place] [address] Jamie Arboleda MD [address] [place] [address] 2L DIV OF PULMONARY/[place] [address] 08/08/2025 10:45 AM CDT Office Visit [facility] - General Surgery [address] [place] [address], [place] [address] Irene Rojas MD [address] [place] [address] [address] [place] [address] documented as of this encounter Visit Diagnoses Not on filedocumented in this encounter Care Teams Psychology Instructor Relationship Specialty Start Date End Date Billy Jalloh MD [address] [place] [address] PCP - General 07/08/16 Jamie Arboleda MD [address] [place] [address] Pulmonary Disease 07/08/18 Ruebn Park MD [address] [place] [address] Hematology and Oncology 07/08/18 Yoni Young CD [address] [place] [address] Cardiology 07/08/18 Vadim Xiong MD [address] [place] [address] Gastroenterology 12/02/18 documented as of this encounter
--- OUTSIDE RECORDS SUMMARY | 2025-01-25 10:54 | XMS_ITS | Patient Health Summary ---
Author Organization [facility] Address [address] [place] [address] Care Team Providers Care Esthetician Makeup Artist Name Role Phone Billy Jalloh MD Primary Care Provider Jamie Arboleda MD Unavailable Ina Boyer MD Unavailable Yoni Young CD Unavailable Vadim Xiong MD Unavailable [phone] Note from [facility],non-owned Affiliates and Associated Physician Practices is amultiple site organization consisting of ambulatory clinics and hospital sitesin [place], [place], [place] and [place]. This disclosure is being madepursuant to the Care Everywhere program and may not contain all information available regarding this patient. Last updated 18.[facility] Allergies * Gabapentin(Rash,Urticaria) -Medium Criticality * Amoxicillin(Rash) -Medium Criticality,Inactive Medications * Be aware that medications may not be up to date on this document. Alwaysverify current medications with the patient. * docusate sodium (COLACE) 100 MG capsule(Started 06/15/2019) Take 1 capsule by mouth 2 times daily * pregabalin (LYRICA) 150 MG capsule(Started 06/10/2021) Take 1 (one) capsule by mouth 2 times daily 5 refills by 12/07/2021 * valACYclovir (VALTREX) 500 MG tablet(Started 05/29/2022) Take 1 (one) tablet by mouth once daily * ketoconazole (Nizoral) 2 % shampoo(Started 09/07/2023) Apply to wet hair, leave on for 3 minutes, then rinse; three times weekly. 30 days supply 11 refills by 09/06/2024 * apixaban (Eliquis) 5 MG tablet(Started 02/05/2024) Take 1 (one) tablet by mouth 2 times daily 3 refills by 02/04/2025 * Vitamin D (Vitamin D3) 50 MCG (2000 UT) capsule Take 1 (one) capsule by mouth Twice Daily, Three Times a Week * hydroCHLOROthiazide (Hydrodiuril) 25 MG tablet(Started 05/22/2024) TAKE 1/2 TABLET BY MOUTH DAILY 3 refills by 05/22/2025 * metoprolol succinate XL 24hr (Toprol XL) 25 MG tablet(Started 06/20/2024) TAKE 1 TABLET BY MOUTH EVERY DAY 3 refills by 06/20/2025 * albuterol HFA (Proventil; Ventolin; Proair) 108 (90 Base) MCG/ACT inhaler (Started 06/30/2024) INHALE 2 PUFFS BY MOUTH EVERY 4 HOURS NEEDED 5 refills by 06/30/2025 * flecainide (Tambocor) 150 MG tablet(Started 2024) TAKE 1 TABLET BY MOUTH TWICE A DAY 5 refills by 2025 * Other(Started 09/19/2024) Apply fluorouracil and calcipotriene mixture to affected areas on the face twice daily for 4 days and BID for 6 days on the hands and forearms. Avoid the eyes. Reasons: Actinic Keratosis * amoxicillin (Amoxil) 500 MG capsule(Started 12/22/2024) TAKE 1 CAPSULE BY MOUTH THREE TIMES A DAY FOR 10 DAYS * aspirin (Aspirin) 81 MG chew tablet(Started 12/27/2024) Take 1 (one) tablet by mouth once daily 3 refills by 12/27/2025 * atorvastatin (Lipitor) 80 MG tablet(Started 12/27/2024) Take 1 (one) tablet by mouth once daily 3 refills by 12/27/2025 * syyvlofvzws-cxkylpyft-ccuhjg (Trelegy Ellipta) 200-62.5-25 MCG/ACT inhaler (Started 01/17/2025) Inhale 1 (one) puff by mouth once daily 3 refills by 01/17/2026 Ended Medications* hydroCHLOROthiazide (Hydrodiuril) 25 MG tablet(Started 05/16/2024)(Discontinued) Take 0.5 (one-half) tablet by mouth once daily 3 refills by 05/16/2025 * atorvastatin (Lipitor) 20 MG tablet(Discontinued) Take 1 (one) tablet by mouth at bedtime * stichxw-xnerndgldxe-mlrlsrjeoy (Breztri Aerosphere) 160-9-4.8 MCG/ACT inhaler (Started 11/09/2024)(Discontinued) Inhale 2 (two) puffs by mouth 2 times daily 5 refills by 11/09/2025 Active Problems Problem Noted Date Diagnosed Date 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 12/27/2024 Actinic keratosis 03/02/2023 Neoplasm of uncertain behavior of skin History of nonmelanoma skin cancer 03/02/2023 Lentigines [...] 07/07/2018 Chronic respiratory failure with hypoxia 018 Hypogammaglobulinemia, acquired 06/21/2018 Shortness of breath 05/31/2018 Cough, persistent 03/09/2018 Persistent atrial fibrillation 02/28/2018 Other usp (current) drug therapy 6 Waldenstrom's macroglobulinemia 09/15/2016 Centrilobular emphysema 08/28/2016 Rash and other nonspecific skin eruption 016 Paroxysmal atrial fibrillation 11/16/2015 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 (FLUAD QUADRIVALENT; 65Y+) (AIIV4)(Given 09/03/2020) * INFLUENZA VACCINE, HIGH-DOSE, QUADR. (FLUZONE HIGH-DOSE QUADRIVALENT; 65Y+), 0.7 ML (HD-IIV4)(Given 09/02/2019, 08/12/2018, 08/24/2017, 01/05/2017, 09/02/2015) * MENINGOCOCCAL CONJUGATE (MCV4P)(Given 09/04/2017) * MENINGOCOCCAL MCV4O(Given 07/25/2020) * PNEUMOCOCCAL PCV VACCINE(Given 03/30/2018, 07/31/2014) * PNEUMOCOCCAL PPSV23(Given 03/30/2018, 07/31/2014) * POLIO IPV(Given 01/28/2018, 11/05/2017, 09/04/2017) * Pneumococcal Pcv13 Conj(Given 01/28/2018, 11/05/2017, 09/04/2017, 07/04/2015) * TDAP (7yrs+)(Given 01/28/2018, 11/05/2017, 09/04/2017) * ZOSTER VACCINE, LIVE(Given 09/12/2013, 08/30/2012) * Zoster Hzv Vacc Recombinant Inj Im(Given 07/25/2020, 05/25/2020) Social History Tobacco Use Types Packs/Day Years [...] Comments Blood Pressure 109/72 01/04/2025 8:57 PM AGENCY SERVICE COORDINATOR Pulse 56 01/04/2025 8:57 PM AGENCY SERVICE COORDINATOR Temperature 36.7 C (98.1 F) 01/04/2025 5:06 PM AGENCY SERVICE COORDINATOR Respiratory Rate 13 01/04/2025 8:57 PM AGENCY SERVICE COORDINATOR Oxygen Saturation 94% 01/04/2025 8:57 PM AGENCY SERVICE COORDINATOR Inhaled Oxygen Concentration - - Weight 99.8 kg (220 lb) 01/04/2025 11:14 AM AGENCY SERVICE COORDINATOR Height 193 cm (6' 4 ) 01/04/2025 11:14 AM AGENCY SERVICE COORDINATOR Body Mass Index 26.78 01/04/2025 11:14 AM AGENCY SERVICE COORDINATOR Medical Devices Explanted Type Area Carbon Sequestration Plant Engineer Device Identifier Shelf Expiration Date Model / Serial / Lot [employer] Ureteral Stents Explanted:Qty: 2 on 06/10/2019 by Heber Vizcarra MD at [facility] Bilateral: Ureter [employer]ile 05/02/2022 [id number] / [id number] Procedures * ACT LR - POCT ([facility])(Performed 01/04/2025) * ACT LR - POCT ([facility])(Performed 01/04/2025) * CCL PERCUTANEOUS CORONARY INTERVENTION(Performed 01/04/2025) Performed for Coronary artery disease involving ak chin coronary artery of ak chin heart with angina pectoris (HCC) * CCL LEFT HEART CATH(Performed 01/04/2025) Performed for Coronary artery disease involving ak chin coronary artery of ak chin heart with angina pectoris (HCC) * BASIC METABOLIC PANEL (CALCIUM TOTAL)(Performed 01/04/2025) Performed for Coronary artery disease involving ak chin coronary artery of ak chin heart with angina pectoris (HCC) * CBC W/O DIFFERENTIAL(Performed 12/30/2024) * BASIC METABOLIC PANEL (CALCIUM TOTAL)(Performed 12/30/2024) * EKG 12-LEAD(Performed 12/27/2024) Performed for Persistent atrial fibrillation (HCC) * WV DESTRUCT BENIGN LESION, 1-14(Performed 09/19/2024) Performed for Seborrheic keratosis, inflamed * WV DESTROY PREMALIG LESION, 2-14(Performed 09/19/2024) Performed for Actinic keratosis * WV DESTROY PREMALIG LESION, 1ST LESION(Performed 09/19/2024) Performed for Actinic keratosis * PFT OXYGEN DESATURATION STUDY(Performed 05/06/2024) Performed for Centrilobular emphysema (HCC) * COMPLETE PFT W/WO BRONCHODILATOR(Performed 05/06/2024) Performed for Centrilobular emphysema (HCC) * WV DESTR MALIG TRUNK,EXTREM 1.1-2 CM(Performed 04/19/2024) Performed for 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, Basal cell carcinoma (BCC) of anterior chest * WV DESTR MALIG TRUNK,EXTREM 0.6-1 CM(Performed 04/19/2024) Performed for 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, Basal cell carcinoma (BCC) of anterior chest * EKG 12-LEAD(Performed 03/24/2024) Performed for Persistent atrial fibrillation (HCC) * WV TANGNTL BX SKIN SINGLE LES(Performed 03/10/2024) Performed for Neoplasm of uncertain behavior * WV TANGNTL BX SKIN EA SEP ADDL(Performed 03/10/2024) Performed for Neoplasm of uncertain behavior * WV DESTRUCT BENIGN LESION, 1-14(Performed 03/10/2024) Performed for Seborrheic keratosis, inflamed * WV DESTROY PREMALIG LESION, 1ST LESION(Performed 03/10/2024) Performed for Actinic keratosis * WV DESTROY PREMALIG LESION, 2-14(Performed 03/10/2024) Performed for Actinic keratosis * DERMATOPATHOLOGY(Performed 03/10/2024) Performed for Neoplasm of uncertain behavior * PATHOLOGY TISSUE(Performed 07/20/2023) Performed for Screen for colon cancer * COLONOSCOPY SCREEN(Performed 07/20/2023) Performed for Screen for colon cancer * ENDOSCOPY, COLON, SCREENING(Performed 07/20/2023) * PROC EKG IN CLINIC(Performed 03/27/2023) Performed for Persistent atrial fibrillation (HCC) * WV TANGNTL BX SKIN SINGLE LES(Performed 03/02/2023) Performed for Neoplasm of uncertain behavior of skin * WV DSTRJ ALL PRMLG 15 OR MORE(Performed 03/02/2023) Performed for Actinic keratosis * DERMATOPATHOLOGY(Performed 03/02/2023) Performed for Neoplasm of uncertain behavior of skin * BLOOD GAS COOX ART POC NOTIFICATION(Performed 02/27/2023) Performed for Centrilobular emphysema (HCC) * PFT OXYGEN DESATURATION STUDY(Performed 02/27/2023) Performed for Centrilobular emphysema (HCC) * HIGH ALTITUDE SIMULATION TEST (HAST) STUDY(Performed 02/27/2023) Performed for Centrilobular emphysema (HCC) * PROC EKG IN CLINIC(Performed 09/26/2022) Performed for Persistent atrial fibrillation (HCC) * PROC EKG IN CLINIC(Performed 06/05/2022) Performed for Paroxysmal atrial fibrillation (HCC) * WV DESTROY PREMALIG LESION, 1ST LESION(Performed 03/10/2022) Performed for Actinic keratosis * WV DESTROY PREMALIG LESION, 2-14(Performed 03/10/2022) Performed for Actinic keratosis * PROC EKG IN CLINIC(Performed 03/06/2022) Performed for Paroxysmal atrial fibrillation (HCC) * IGM BLOOD(Performed 10/17/2021) Performed for Hypogammaglobulinemia, acquired (HCC) * IGG BLOOD(Performed 10/17/2021) Performed for Hypogammaglobulinemia, acquired (HCC) * COMPREHENSIVE METABOLIC PANEL(Performed 10/17/2021) Performed for Hypogammaglobulinemia, acquired (HCC) * CBC W AUTO DIFFERENTIAL(Performed 10/17/2021) Performed for Hypogammaglobulinemia, acquired (HCC) * WV CHMSRG MOHS MG TQ H/N/H/F/G 1ST STAG 5 BLOC(Performed 10/09/2021) Performed for SCC (squamous cell carcinoma), hand, right * PROC MOHS SURG HEAD/NECK/HAND/FEET/KIRK(Performed 10/09/2021) Performed for SCC (squamous cell carcinoma), hand, right * WV CHMSRG MOHS MG TQ H/N/H/F/G 1ST STAG 5 BLOC(Performed 09/20/2021) 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 * WV CHMSRG MOHS MG TQ H/N/H/F/G EA ADDL STAG(Performed 09/20/2021) 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 * VAS ARTERIAL ANKLE ARM INDEX(Performed 09/19/2021) Performed for Arthralgia of both lower legs * CARDIAC EKG ORDER(Performed 09/11/2021) * PROC EKG IN CLINIC(Performed 09/05/2021) Performed for Atrial fibrillation, unspecified type (HCC) * WV TANGNTL BX SKIN SINGLE LES(Performed 08/26/2021) Performed for Neoplasm of uncertain behavior of skin * WV TANGNTL BX SKIN EA SEP ADDL(Performed 08/26/2021) Performed for Neoplasm of uncertain behavior of skin * WV DESTROY PREMALIG LESION, 1ST LESION(Performed 08/26/2021) Performed for Actinic keratosis * WV DESTROY PREMALIG LESION, 2-14(Performed 08/26/2021) Performed for Actinic keratosis * DERMATOPATHOLOGY(Performed 08/26/2021) Performed for Neoplasm of uncertain behavior of skin * IGM BLOOD(Performed 08/22/2021) Performed for Hypogammaglobulinemia, acquired (HCC) * IGG BLOOD(Performed 08/22/2021) Performed for Hypogammaglobulinemia, acquired (HCC) * COMPREHENSIVE METABOLIC PANEL(Performed 08/22/2021) Performed for Hypogammaglobulinemia, acquired (HCC) * CBC W AUTO DIFFERENTIAL(Performed 08/22/2021) Performed for Hypogammaglobulinemia, acquired (HCC) * CARDIAC EKG ORDER(Performed 08/09/2021) * ECHO STRESS W DOBUTAMINE(Performed 08/07/2021) Performed for Coronary artery disease involving ak chin heart without angina pectoris, unspecified vessel or lesion type, LVH (left ventricular hypertrophy) * IGM BLOOD(Performed 06/27/2021) Performed for Hypogammaglobulinemia, acquired (HCC) * IGG BLOOD(Performed 06/27/2021) Performed for Hypogammaglobulinemia, acquired (HCC) * COMPREHENSIVE METABOLIC PANEL(Performed 06/27/2021) Performed for Hypogammaglobulinemia, acquired (HCC) * CBC W AUTO DIFFERENTIAL(Performed 06/27/2021) Performed for Hypogammaglobulinemia, acquired (HCC) * IGM BLOOD(Performed 05/09/2021) Performed for Hypogammaglobulinemia, acquired (HCC) * IGG BLOOD(Performed 05/09/2021) Performed for Hypogammaglobulinemia, acquired (HCC) * COMPREHENSIVE METABOLIC PANEL(Performed 05/09/2021) Performed for Hypogammaglobulinemia, acquired (HCC) * CBC W AUTO DIFFERENTIAL(Performed 05/09/2021) Performed for Hypogammaglobulinemia, acquired (HCC) * IGM BLOOD(Performed 03/21/2021) Performed for Hypogammaglobulinemia, acquired (HCC) * IGG BLOOD(Performed 03/21/2021) Performed for Hypogammaglobulinemia, acquired (HCC) * COMPREHENSIVE METABOLIC PANEL(Performed 03/21/2021) Performed for Hypogammaglobulinemia, acquired (HCC) * CBC W AUTO DIFFERENTIAL(Performed 03/21/2021) Performed for Hypogammaglobulinemia, acquired (HCC) * PFT OXYGEN DESATURATION STUDY(Performed 03/05/2021) Performed for Moderate chronic obstructive pulmonary disease (HCC) * HIGH ALTITUDE SIMULATION TEST (HAST) STUDY(Performed 03/05/2021) Performed for Moderate chronic obstructive pulmonary disease (HCC) * IGM BLOOD(Performed 01/25/2021) Performed for Hypogammaglobulinemia, acquired (HCC) * IGG BLOOD(Performed 01/25/2021) Performed for Hypogammaglobulinemia, acquired (HCC) * COMPREHENSIVE METABOLIC PANEL(Performed 01/25/2021) Performed for Hypogammaglobulinemia, acquired (HCC) * CBC W AUTO DIFFERENTIAL(Performed 01/25/2021) Performed for Hypogammaglobulinemia, acquired (HCC) * IGM BLOOD(Performed 12/07/2020) Performed for Hypogammaglobulinemia, acquired (HCC) * IGG BLOOD(Performed 12/07/2020) Performed for Hypogammaglobulinemia, acquired (HCC) * COMPREHENSIVE METABOLIC PANEL(Performed 12/07/2020) Performed for Hypogammaglobulinemia, acquired (HCC) * CBC W AUTO DIFFERENTIAL(Performed 12/07/2020) Performed for Hypogammaglobulinemia, acquired (HCC) * COMPREHENSIVE METABOLIC PANEL(Performed 10/19/2020) Performed for Hypogammaglobulinemia, acquired (HCC) * IGM BLOOD(Performed 10/19/2020) Performed for Hypogammaglobulinemia, acquired (HCC) * IGG BLOOD(Performed 10/19/2020) Performed for Hypogammaglobulinemia, acquired (HCC) * CBC W AUTO DIFFERENTIAL(Performed 10/19/2020) Performed for Hypogammaglobulinemia, acquired (HCC) * VITAMIN D 25-HYDROXY(Performed 10/19/2020) Performed for Hypogammaglobulinemia, acquired (HCC) * CARDIAC EKG ORDER(Performed 09/04/2020) * IGM BLOOD(Performed 08/31/2020) Performed for Hypogammaglobulinemia, acquired (HCC) * IGG BLOOD(Performed 08/31/2020) Performed for Hypogammaglobulinemia, acquired (HCC) * COMPREHENSIVE METABOLIC PANEL(Performed 08/31/2020) Performed for Hypogammaglobulinemia, acquired (HCC) * CBC W AUTO DIFFERENTIAL(Performed 08/31/2020) Performed for Hypogammaglobulinemia, acquired (HCC) * PROC EKG IN CLINIC(Performed 08/30/2020) Performed for Persistent atrial fibrillation (HCC) * COMPREHENSIVE METABOLIC PANEL(Performed 07/23/2020) Performed for Hypoglycemia * CYTOMEGALOVIRUS (CMV) QUANTITATIVE PLASMA(Performed 07/23/2020) Performed for Cytomegalovirus infection, unspecified cytomegaloviral infection type (HCC) * ENDOSCOPY, COLON, SCREENING(Performed 07/20/2020) * COLONOSCOPY SCREEN(Performed 07/20/2020) Performed for Rectal cancer (HCC) * SARS-COV-2 (COVID-19) IN HOUSE(Performed 07/17/2020) Performed for Rectal cancer (HCC) * IGM BLOOD(Performed 07/12/2020) Performed for Hypogammaglobulinemia, acquired (HCC) * IGG BLOOD(Performed 07/12/2020) Performed for Hypogammaglobulinemia, acquired (HCC) * COMPREHENSIVE METABOLIC PANEL(Performed 07/12/2020) Performed for Hypogammaglobulinemia, acquired (HCC) * CBC W AUTO DIFFERENTIAL(Performed 07/12/2020) Performed for Hypogammaglobulinemia, acquired (HCC) * IGM BLOOD(Performed 05/25/2020) Performed for Hypogammaglobulinemia, acquired (HCC) * IGG BLOOD(Performed 05/25/2020) Performed for Hypogammaglobulinemia, acquired (HCC) * COMPREHENSIVE METABOLIC PANEL(Performed 05/25/2020) Performed for Hypogammaglobulinemia, acquired (HCC) * CBC W AUTO DIFFERENTIAL(Performed 05/25/2020) Performed for Hypogammaglobulinemia, acquired (HCC) * WV CHMSRG MOHS MG TQ H/N/H/F/G 1ST STAG 5 BLOC(Performed 05/24/2020) Performed for 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, right * WV REPR CMPL WND LID,NOS,EAR 2.5-7.5(Performed 05/24/2020) Performed for 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, right * IGM BLOOD(Performed 04/05/2020) Performed for Hypogammaglobulinemia, acquired (HCC) * IGG BLOOD(Performed 04/05/2020) Performed for Hypogammaglobulinemia, acquired (HCC) * COMPREHENSIVE METABOLIC PANEL(Performed 04/05/2020) Performed for Hypogammaglobulinemia, acquired (HCC) * CBC W AUTO DIFFERENTIAL(Performed 04/05/2020) Performed for Hypogammaglobulinemia, acquired (HCC) * URINALYSIS REFLEX TO MICROSCOPIC NO CULTURE(Performed 02/09/2020) Performed for Hypogammaglobulinemia, acquired (HCC) * IGM BLOOD(Performed 02/09/2020) Performed for Hypogammaglobulinemia, acquired (HCC) * IGG BLOOD(Performed 02/09/2020) Performed for Hypogammaglobulinemia, acquired (HCC) * COMPREHENSIVE METABOLIC PANEL(Performed 02/09/2020) Performed for Hypogammaglobulinemia, acquired (HCC) * CBC W AUTO DIFFERENTIAL(Performed 02/09/2020) Performed for Hypogammaglobulinemia, acquired (HCC) * VITAMIN D 25-HYDROXY(Performed 02/09/2020) Performed for Hypogammaglobulinemia, acquired (HCC) * CYTOMEGALOVIRUS (CMV) QUANTITATIVE PLASMA(Performed 02/09/2020) Performed for Hypogammaglobulinemia, acquired (HCC) * WV DESTR MALIG TRUNK,EXTREM 1.1-2 CM(Performed 01/02/2020) Performed for Basal cell carcinoma (BCC) of back * COMPLETE PFT W/WO BRONCHODILATOR(Performed 11/03/2019) Performed for Moderate chronic obstructive pulmonary disease (HCC) * WV TANGNTL BX SKIN SINGLE LES(Performed 09/19/2019) Performed for Neoplasm of uncertain behavior * WV TANGNTL BX SKIN EA SEP ADDL(Performed 09/19/2019) Performed for Neoplasm of uncertain behavior * WV DESTROY PREMALIG LESION, 1ST LESION(Performed 09/19/2019) Performed for Actinic keratosis * WV DESTROY PREMALIG LESION, 2-14(Performed 09/19/2019) Performed for Actinic keratosis * DERMATOPATHOLOGY(Performed 09/19/2019) Performed for Neoplasm of uncertain behavior * EKG 12-LEAD(Performed 09/09/2019) * CULTURE WOUND+GRAM STAIN(Performed 07/06/2019) Performed for Rectal cancer (HCC) * PATHOLOGY/CYTOLOGY REPORT ORDER(Performed 06/20/2019) * PHOSPHORUS BLOOD(Performed 06/15/2019) * MAGNESIUM BLOOD(Performed 06/15/2019) * BASIC METABOLIC PANEL (CALCIUM TOTAL)(Performed 06/15/2019) * CBC W AUTO DIFFERENTIAL(Performed 06/15/2019) * IGG BLOOD(Performed 06/15/2019) * PHOSPHORUS BLOOD(Performed 06/14/2019) * MAGNESIUM BLOOD(Performed 06/14/2019) * BASIC METABOLIC PANEL (CALCIUM TOTAL)(Performed 06/14/2019) * CBC W AUTO DIFFERENTIAL(Performed 06/14/2019) * PHOSPHORUS BLOOD(Performed 06/13/2019) * MAGNESIUM BLOOD(Performed 06/13/2019) * CBC W AUTO DIFFERENTIAL(Performed 06/13/2019) * BASIC METABOLIC PANEL (CALCIUM TOTAL)(Performed 06/13/2019) * CREATININE BODY FLUID(Performed 06/13/2019) * MAGNESIUM BLOOD(Performed 06/13/2019) * BASIC METABOLIC PANEL (CALCIUM TOTAL)(Performed 06/13/2019) * TYPE + SCREEN PANEL(Performed 06/13/2019) * PHOSPHORUS BLOOD(Performed 06/13/2019) * CBC W AUTO DIFFERENTIAL(Performed 06/13/2019) * GLUCOSE - POINT OF CARE(Performed 06/12/2019) * PHOSPHORUS BLOOD(Performed 06/12/2019) * MAGNESIUM BLOOD(Performed 06/12/2019) * CBC W AUTO DIFFERENTIAL(Performed 06/12/2019) * BASIC METABOLIC PANEL (CALCIUM TOTAL)(Performed 06/12/2019) * GLUCOSE - POINT OF CARE(Performed 06/11/2019) * TRANSFUSE RED BLOOD CELL LEUKOREDUCED UNIT(S)(Performed 06/11/2019) * CBC W AUTO DIFFERENTIAL(Performed 06/11/2019) * GLUCOSE - POINT OF CARE(Performed 06/11/2019) * BASIC METABOLIC PANEL (CALCIUM TOTAL)(Performed 06/11/2019) * CBC W AUTO DIFFERENTIAL(Performed 06/11/2019) * PHOSPHORUS BLOOD(Performed 06/11/2019) * MAGNESIUM BLOOD(Performed 06/11/2019) * GLUCOSE - POINT OF CARE(Performed 06/11/2019) * GLUCOSE - POINT OF CARE(Performed 06/10/2019) * BLOOD GASES ART COMPLETE [facility] OR(Performed 06/10/2019) * GLUCOSE - POINT OF CARE(Performed 06/10/2019) * PHOSPHORUS BLOOD(Performed 06/10/2019) * MAGNESIUM BLOOD(Performed 06/10/2019) * CBC W AUTO DIFFERENTIAL(Performed 06/10/2019) * BASIC METABOLIC PANEL (CALCIUM TOTAL)(Performed 06/10/2019) * XR CHEST 1VW PORTABLE(Performed 06/10/2019) Performed for 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) * BLOOD GASES ART COMPLETE [facility] OR(Performed 06/10/2019) Performed for 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) * BLOOD GASES ART COMPLETE [facility] OR(Performed 06/10/2019) Performed for 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) * BLOOD GASES ART COMPLETE [facility] OR(Performed 06/10/2019) Performed for 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) * PATHOLOGY TISSUE(Performed 06/10/2019) Performed for Rectal cancer (HCC) * BLOOD GASES ARTERIAL(Performed 06/10/2019) Performed for 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) * ENDOTRACHEAL TUBE NOTE(Performed 06/10/2019) * ARTERIAL LINE NOTE(Performed 06/10/2019) * CENTRAL LINE NOTE(Performed 06/10/2019) * BLOOD GASES ART COMPLETE [facility] OR(Performed 06/10/2019) Performed for 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) * CYSTOSCOPY INSERTION STENT (WITH GENERAL/ABDOMINAL SURGERY)(Performed 06/10/2019) Performed for Rectal cancer (HCC) * FREE FLAP(Performed 06/10/2019) Performed for Rectal cancer (HCC) * COLECTOMY LOW ANTERIOR(Performed 06/10/2019) Performed for Rectal cancer (HCC) * NEURAXIAL BLOCK(Performed 06/10/2019) * PREPARE RBC LEUKOREDUCED UNIT(Performed 06/10/2019) * PREPARE RBC LEUKOREDUCED UNIT(Performed 06/10/2019) Performed for 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) * PREPARE RBC LEUKOREDUCED UNIT(Performed 06/10/2019) * TYPE + SCREEN PANEL(Performed 06/10/2019) Performed for 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) * URINALYSIS REFLEX TO MICROSCOPIC NO CULTURE(Performed 06/01/2019) Performed for Hypogammaglobulinemia, acquired (HCC) * IGM BLOOD(Performed 06/01/2019) Performed for Hypogammaglobulinemia, acquired (HCC) * IGG BLOOD(Performed 06/01/2019) Performed for Hypogammaglobulinemia, acquired (HCC) * COMPREHENSIVE METABOLIC PANEL(Performed 06/01/2019) Performed for Hypogammaglobulinemia, acquired (HCC) * CBC W AUTO DIFFERENTIAL(Performed 06/01/2019) Performed for Hypogammaglobulinemia, acquired (HCC) * CYTOMEGALOVIRUS (CMV) QUANTITATIVE PLASMA(Performed 06/01/2019) Performed for Hypogammaglobulinemia, acquired (HCC) * PATHOLOGY TISSUE(Performed 05/25/2019) Performed for 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) * SIGMOIDOSCOPY FLEXIBLE DIAGNOSTIC(Performed 05/20/2019) Performed for Rectal cancer (HCC) * ENDOSCOPY, PROCTOSIGMOID(Performed 05/20/2019) * TYPE + SCREEN PANEL(Performed 05/18/2019) Performed for Pre-op evaluation * CBC W/O DIFFERENTIAL(Performed 05/18/2019) Performed for Pre-op evaluation * COMPREHENSIVE METABOLIC PANEL(Performed 05/18/2019) Performed for Pre-op evaluation * MRI PELVIS WWO CONTRAST(Performed 05/14/2019) Performed for 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) * CREATININE BLOOD - POCT (IP) [facility](Performed 05/14/2019) Performed for 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) * COMPLETE PFT W/WO BRONCHODILATOR(Performed 05/12/2019) Performed for Centrilobular emphysema (HCC) * BLOOD GASES ARTERIAL(Performed 05/05/2019) Performed for Primary malignant neoplasm (HCC) * PROC EKG IN CLINIC(Performed 04/22/2019) Performed for Pre-op evaluation * PROC EKG IN CLINIC(Performed 02/11/2019) Performed for Cardiac arrhythmia, unspecified cardiac arrhythmia type * URINALYSIS REFLEX TO MICROSCOPIC NO CULTURE(Performed 01/27/2019) Performed for Hypogammaglobulinemia, acquired (HCC) * IGM BLOOD(Performed 01/27/2019) Performed for Hypogammaglobulinemia, acquired (HCC) * IGG BLOOD(Performed 01/27/2019) Performed for Hypogammaglobulinemia, acquired (HCC) * COMPREHENSIVE METABOLIC PANEL(Performed 01/27/2019) Performed for Hypogammaglobulinemia, acquired (HCC) * CYTOMEGALOVIRUS (CMV) QUANTITATIVE PLASMA(Performed 01/27/2019) Performed for Hypogammaglobulinemia, acquired (HCC) * CBC W AUTO DIFFERENTIAL(Performed 01/27/2019) Performed for Hypogammaglobulinemia, acquired (HCC) * MRI PELVIS WWO CONTRAST(Performed 01/22/2019) Performed for Rectal cancer (HCC) * CREATININE BLOOD - POCT (IP) [facility](Performed 01/22/2019) Performed for Rectal cancer (HCC) * PET CT WHOLE BODY(Performed 01/18/2019) Performed for Malignant neoplasm of sigmoid colon , Malignant neoplasm of colon, unspecified part of colon (HCC) * GLUCOSE SCREEN - POCT (IP) [facility](Performed 01/18/2019) * WV DSTRJ ALL PRMLG 15 OR MORE(Performed 01/18/2019) Performed for Actinic keratosis * CEA BLOOD(Performed 01/13/2019) Performed for Malignant neoplasm of colon, unspecified part of colon (HCC) * CYTOMEGALOVIRUS DNA RT-PCR QUANT(Performed 01/13/2019) Performed for Cytomegalovirus infection, unspecified cytomegaloviral infection type (HCC) * URINALYSIS REFLEX TO MICROSCOPIC NO CULTURE(Performed 12/30/2018) Performed for Hypogammaglobulinemia, acquired (HCC) * IGM BLOOD(Performed 12/30/2018) Performed for Hypogammaglobulinemia, acquired (HCC) * IGG BLOOD(Performed 12/30/2018) Performed for Hypogammaglobulinemia, acquired (HCC) * COMPREHENSIVE METABOLIC PANEL(Performed 12/30/2018) Performed for Hypogammaglobulinemia, acquired (HCC) * CBC W AUTO DIFFERENTIAL(Performed 12/30/2018) Performed for Hypogammaglobulinemia, acquired (HCC) * VITAMIN D 25-HYDROXY(Performed 12/30/2018) Performed for Hypogammaglobulinemia, acquired (HCC) * CYTOMEGALOVIRUS (CMV) QUANTITATIVE PLASMA(Performed 12/30/2018) Performed for Hypogammaglobulinemia, acquired (HCC) * URINALYSIS REFLEX TO MICROSCOPIC NO CULTURE(Performed 12/02/2018) Performed for Hypogammaglobulinemia, acquired (HCC) * IGM BLOOD(Performed 12/02/2018) Performed for Hypogammaglobulinemia, acquired (HCC) * IGG BLOOD(Performed 12/02/2018) Performed for Hypogammaglobulinemia, acquired (HCC) * COMPREHENSIVE METABOLIC PANEL(Performed 12/02/2018) Performed for Hypogammaglobulinemia, acquired (HCC) * CBC W AUTO DIFFERENTIAL(Performed 12/02/2018) Performed for Hypogammaglobulinemia, acquired (HCC) * CYTOMEGALOVIRUS (CMV) QUANTITATIVE PLASMA(Performed 12/02/2018) * URINALYSIS REFLEX TO MICROSCOPIC NO CULTURE(Performed 11/04/2018) Performed for Hypogammaglobulinemia, acquired (HCC) * CYTOMEGALOVIRUS QUAL PCR(Performed 11/04/2018) * IGM BLOOD(Performed 11/04/2018) Performed for Hypogammaglobulinemia, acquired (HCC) * IGG BLOOD(Performed 11/04/2018) Performed for Hypogammaglobulinemia, acquired (HCC) * COMPREHENSIVE METABOLIC PANEL(Performed 11/04/2018) Performed for Hypogammaglobulinemia, acquired (HCC) * CBC W AUTO DIFFERENTIAL(Performed 11/04/2018) Performed for Hypogammaglobulinemia, acquired (HCC) * URINALYSIS REFLEX TO MICROSCOPIC NO CULTURE(Performed 10/07/2018) Performed for Hypogammaglobulinemia, acquired (HCC) * IGM BLOOD(Performed 10/07/2018) Performed for Hypogammaglobulinemia, acquired (HCC) * IGG BLOOD(Performed 10/07/2018) Performed for Hypogammaglobulinemia, acquired (HCC) * COMPREHENSIVE METABOLIC PANEL(Performed 10/07/2018) Performed for Hypogammaglobulinemia, acquired (HCC) * CBC W AUTO DIFFERENTIAL(Performed 10/07/2018) Performed for Hypogammaglobulinemia, acquired (HCC) * CYTOMEGALOVIRUS (CMV) QUANTITATIVE PLASMA(Performed 10/07/2018) * URINALYSIS REFLEX TO MICROSCOPIC NO CULTURE(Performed 09/02/2018) Performed for Waldenstrom macroglobulinemia (HCC), Hypogammaglobulinemia (HCC) * VITAMIN D 25-HYDROXY(Performed 09/02/2018) Performed for Vitamin D deficiency * IGM BLOOD(Performed 09/02/2018) Performed for Waldenstrom macroglobulinemia (HCC), Hypogammaglobulinemia (HCC) * IGG BLOOD(Performed 09/02/2018) Performed for Waldenstrom macroglobulinemia (HCC), Hypogammaglobulinemia (HCC) * COMPREHENSIVE METABOLIC PANEL(Performed 09/02/2018) Performed for Waldenstrom macroglobulinemia (HCC), Hypogammaglobulinemia (HCC) * CBC W AUTO DIFFERENTIAL(Performed 09/02/2018) Performed for Waldenstrom macroglobulinemia (HCC), Hypogammaglobulinemia (HCC) * CYTOMEGALOVIRUS DNA RT-PCR QUANT(Performed 09/02/2018) Performed for Waldenstrom macroglobulinemia (HCC), Hypogammaglobulinemia (HCC) * CARDIAC EKG ORDER(Performed 08/23/2018) * PROC EKG IN CLINIC(Performed 08/13/2018) Performed for Persistent atrial fibrillation (HCC) * HEPATITIS B SURFACE ANTIBODY QUANT(Performed 08/12/2018) Performed for Hypogammaglobulinemia, acquired (HCC), Waldenstrom macroglobulinemia (HCC), H/O stem cell transplant (HCC) * URINALYSIS REFLEX TO MICROSCOPIC NO CULTURE(Performed 08/12/2018) Performed for Hypogammaglobulinemia, acquired (HCC) * VARICELLA ZOSTER ANTIBODY IGG(Performed 08/12/2018) Performed for H/O stem cell transplant (HCC), Waldenstrom macroglobulinemia (HCC), Hypogammaglobulinemia, acquired (HCC) * IGM BLOOD(Performed 08/12/2018) Performed for Hypogammaglobulinemia, acquired (HCC) * IGG BLOOD(Performed 08/12/2018) Performed for Hypogammaglobulinemia, acquired (HCC) * COMPREHENSIVE METABOLIC PANEL(Performed 08/12/2018) Performed for Hypogammaglobulinemia, acquired (HCC) * CBC W AUTO DIFFERENTIAL(Performed 08/12/2018) Performed for Hypogammaglobulinemia, acquired (HCC) * CYTOMEGALOVIRUS (CMV) QUANTITATIVE PLASMA(Performed 08/12/2018) Performed for Hypogammaglobulinemia, acquired (HCC) * URINALYSIS REFLEX TO MICROSCOPIC NO CULTURE(Performed 07/08/2018) Performed for Hypogammaglobulinemia, acquired (HCC) * IGM BLOOD(Performed 07/08/2018) Performed for Hypogammaglobulinemia, acquired (HCC) * IGG BLOOD(Performed 07/08/2018) Performed for Hypogammaglobulinemia, acquired (HCC) * COMPREHENSIVE METABOLIC PANEL(Performed 07/08/2018) Performed for Hypogammaglobulinemia, acquired (HCC) * CBC W AUTO DIFFERENTIAL(Performed 07/08/2018) Performed for Hypogammaglobulinemia, acquired (HCC) * CYTOMEGALOVIRUS (CMV) QUANTITATIVE PLASMA(Performed 07/08/2018) * WV DSTRJ ALL PRMLG 15 OR MORE(Performed 07/05/2018) Performed for Actinic keratosis * PFT OXYGEN DESATURATION STUDY(Performed 06/28/2018) Performed for Centrilobular emphysema (HCC) * HIGH ALTITUDE SIMULATION TEST (HAST) STUDY(Performed 06/28/2018) Performed for Centrilobular emphysema (HCC) * CT CHEST WO CONTRAST(Performed 06/21/2018) Performed for Dyspnea, unspecified type, Shortness of breath, Ground glass opacity present on imaging of lung, Other usp (current) drug therapy, Cough, persistent * CYTOMEGALOVIRUS (CMV) QUANTITATIVE PLASMA(Performed 06/14/2018) 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, Waldenstrom macroglobulinemia (HCC), Centrilobular emphysema (HCC), Rash and other nonspecific skin eruption, Paroxysmal atrial fibrillation (HCC), Other hereditary and idiopathic neuropathies, Primary malignant neoplasm (HCC), Persistent atrialfibrillation (HCC), Cough, persistent, Shortness of breath * COMPREHENSIVE METABOLIC PANEL(Performed 06/08/2018) Performed for Cytomegalovirus infection, unspecified cytomegaloviral infection type (HCC) * CBC W AUTO DIFFERENTIAL(Performed 06/08/2018) Performed for Cytomegalovirus infection, unspecified cytomegaloviral infection type (HCC) * CYTOMEGALOVIRUS DNA RT-PCR QUANT(Performed 06/08/2018) Performed for Cytomegalovirus infection, unspecified cytomegaloviral infection type (HCC) * CYTOMEGALOVIRUS QUAL PCR(Performed 06/03/2018) * COMPREHENSIVE METABOLIC PANEL(Performed 06/03/2018) * CBC W AUTO DIFFERENTIAL(Performed 06/03/2018) * MPO/WV 3 AUTOANTIBODIES PANEL(Performed 06/03/2018) * CRYPTOCOCCUS ANTIGEN BLOOD(Performed 06/03/2018) * COMPREHENSIVE METABOLIC PANEL(Performed 06/02/2018) * HISTOPLASMA ANTIGEN BLOOD(Performed 06/02/2018) * CYCLIC CITRULLINATED PEPTIDE(CCP) AB IGG(Performed 06/02/2018) * ASPERGILLUS GALACTOMANNAN ANTIGEN BLOOD(Performed 06/02/2018) * CBC W AUTO DIFFERENTIAL(Performed 06/02/2018) * RHEUMATOID FACTOR BLOOD QUANTITATIVE(Performed 06/02/2018) * QUANTIFERON TB-GOLD (CLIENT INCUBATED)(Performed 06/02/2018) * ANTI-NEUTROPHIL CYTOPLASMIC ANTIBODY IGG(Performed 06/02/2018) * [id number] (1,3) (FUNGITELL)(Performed 06/02/2018) * KIM BLOOD SCREEN W/REFLEX TITER(Performed 06/02/2018) * HISTOPLASMA GALACTOMANNAN AG URINE(Performed 06/01/2018) * DIFFERENTIAL MANUAL FLUID(Performed 06/01/2018) Performed for Ground glass opacity present on imaging of lung * CELL COUNT W DIFFERENTIAL FLUID(Performed 06/01/2018) Performed for Ground glass opacity present on imaging of lung * RESPIRATORY PATHOGEN PANEL BY PCR(Performed 06/01/2018) Performed for Ground glass opacity present on imaging of lung * CULTURE BRONCHOALVEOLAR LAVAGE QNT+GRAM STAIN(Performed 06/01/2018) Performed for Ground glass opacity present on imaging of lung * CULTURE LEGIONELLA(Performed 06/01/2018) Performed for Ground glass opacity present on imaging of lung * CULTURE FUNGUS OTHER+FUNGUS SMEAR(Performed 06/01/2018) Performed for Ground glass opacity present on imaging of lung * CULTURE AFB+SMEAR(Performed 06/01/2018) Performed for Ground glass opacity present on imaging of lung * CYTOLOGY NON-SUPERVISOR RECORD PRESS PANEL (STL)(Performed 06/01/2018) Performed for Ground glass opacity present on imaging of lung * VIRAL CULTURE INFLUENZA(Performed 06/01/2018) Performed for Ground glass opacity present on imaging of lung * CULTURE BRONCHIAL WASHING+GRAM STAIN(Performed 06/01/2018) Performed for Ground glass opacity present on imaging of lung * CULTURE LEGIONELLA(Performed 06/01/2018) Performed for Ground glass opacity present on imaging of lung * CULTURE FUNGUS OTHER+FUNGUS SMEAR(Performed 06/01/2018) Performed for Ground glass opacity present on imaging of lung * CULTURE AFB+SMEAR(Performed 06/01/2018) Performed for Ground glass opacity present on imaging of lung * CULTURE TISSUE+GRAM STAIN(Performed 06/01/2018) Performed for Ground glass opacity present on imaging of lung * CULTURE LEGIONELLA(Performed 06/01/2018) Performed for Ground glass opacity present on imaging of lung * CULTURE AFB+SMEAR(Performed 06/01/2018) Performed for Ground glass opacity present on imaging of lung * CULTURE FUNGUS OTHER+FUNGUS SMEAR(Performed 06/01/2018) Performed for Ground glass opacity present on imaging of lung * XR CHEST 1VW PORTABLE(Performed 06/01/2018) Performed for Ground glass opacity present on imaging of lung * PATHOLOGY TISSUE(Performed 06/01/2018) Performed for Abnormal CT scan of lung * CYTOLOGY NON-SUPERVISOR RECORD PRESS PANEL (STL)(Performed 06/01/2018) Performed for Ground glass opacity present on imaging of lung * CULTURE BRONCHIAL BRUSHINGS QUANT(Performed 06/01/2018) Performed for Ground glass opacity present on imaging of lung * BRONCHOSCOPY TRANSBRONCHIAL LUNG BIOPSY(Performed 06/01/2018) Performed for Abnormal CT scan of lung * BRONCHOSCOPY(Performed 06/01/2018) * COMPREHENSIVE METABOLIC PANEL(Performed 06/01/2018) * CBC W AUTO DIFFERENTIAL(Performed 06/01/2018) * URINALYSIS REFLEX TO MICROSCOPIC NO CULTURE(Performed 05/31/2018) * LEGIONELLA ANTIGEN URINE(Performed 05/31/2018) * STREP PNEUMONIAE ANTIGEN URINE(Performed 05/31/2018) * CULTURE SPUTUM+GRAM STAIN(Performed 05/31/2018) * PROCALCITONIN LEVEL(Performed 05/31/2018) * LDH BLOOD(Performed 05/31/2018) Performed for Cough, persistent, Cytomegalovirus infection, unspecified cytomegaloviral infection type (HCC) * MAGNESIUM BLOOD(Performed 05/31/2018) Performed for Cough, persistent, Cytomegalovirus infection, unspecified cytomegaloviral infection type (HCC) * COMPREHENSIVE METABOLIC PANEL(Performed 05/31/2018) Performed for Cough, persistent, Cytomegalovirus infection, unspecified cytomegaloviral infection type (HCC) * CULTURE BLOOD(Performed 05/31/2018) Performed for Cough, persistent, Low grade fever * RESPIRATORY PATHOGEN PANEL BY PCR(Performed 05/31/2018) Performed for Cough, persistent, Waldenstrom macroglobulinemia (HCC) * CT CHEST WO CONTRAST(Performed 05/31/2018) Performed for Cough, persistent * CBC W AUTO DIFFERENTIAL(Performed 05/31/2018) Performed for Cytomegalovirus infection, unspecified cytomegaloviral infection type (HCC) * COMPREHENSIVE METABOLIC PANEL(Performed 05/31/2018) Performed for Cytomegalovirus infection, unspecified cytomegaloviral infection type (HCC) * CYTOMEGALOVIRUS DNA RT-PCR QUANT(Performed 05/31/2018) Performed for Cytomegalovirus infection, unspecified cytomegaloviral infection type (HCC) * XR CHEST 2VW(Performed 05/24/2018) Performed for Cough, persistent, Fever, unspecified fever cause * CULTURE SPUTUM+GRAM STAIN(Performed 05/24/2018) Performed for Cough, persistent * DIFFERENTIAL MANUAL(Performed 05/24/2018) Performed for Cough, persistent, Fever, unspecified fever cause * IGG BLOOD(Performed 05/24/2018) Performed for Cough, persistent, Fever, unspecified fever cause * COMPREHENSIVE METABOLIC PANEL(Performed 05/24/2018) Performed for Cough, persistent, Fever, unspecified fever cause * CBC W AUTO DIFFERENTIAL(Performed 05/24/2018) Performed for Cough, persistent, Fever, unspecified fever cause * RESPIRATORY PATHOGEN PANEL BY PCR(Performed 05/24/2018) Performed for Cough, persistent, Fever, unspecified fever cause * CYTOMEGALOVIRUS DNA RT-PCR QUANT(Performed 05/24/2018) Performed for Cough, persistent, Fever, unspecified fever cause * COMPLETE PFT W/WO BRONCHODILATOR(Performed 05/17/2018) Performed for Centrilobular emphysema (HCC), Cough, persistent * IGG BLOOD(Performed 04/29/2018) Performed for Waldenstrom macroglobulinemia (HCC), Vitamin D deficiency * IGM BLOOD(Performed 04/29/2018) Performed for Waldenstrom macroglobulinemia (HCC), Vitamin D deficiency * URIC ACID BLOOD(Performed 04/29/2018) Performed for Waldenstrom macroglobulinemia (HCC), Vitamin D deficiency * VITAMIN D 25-HYDROXY(Performed 04/29/2018) Performed for Waldenstrom macroglobulinemia (HCC), Vitamin D deficiency * CYTOMEGALOVIRUS DNA RT-PCR QUANT(Performed 04/29/2018) Performed for Waldenstrom macroglobulinemia (HCC), Vitamin D deficiency * LDH BLOOD(Performed 04/29/2018) Performed for Waldenstrom macroglobulinemia (HCC) * COMPREHENSIVE METABOLIC PANEL(Performed 04/29/2018) Performed for Waldenstrom macroglobulinemia (HCC) * CBC W AUTO DIFFERENTIAL(Performed 04/29/2018) Performed for Waldenstrom macroglobulinemia (HCC) * CT CHEST WO CONTRAST(Performed 03/30/2018) Performed for Cough * EKG 12-LEAD(Performed 02/26/2018) * CT CHEST WO CONTRAST(Performed 02/22/2018) * PROTEIN ELECTROPHORESIS WO INTERP BLOOD(Performed 01/28/2018) * IMMUNOFIXATION BLOOD(Performed 01/28/2018) * IGG BLOOD(Performed 01/28/2018) * IGM BLOOD(Performed 01/28/2018) * URIC ACID BLOOD(Performed 01/28/2018) * LDH BLOOD(Performed 01/28/2018) * COMPREHENSIVE METABOLIC PANEL(Performed 01/28/2018) * CYTOMEGALOVIRUS DNA RT-PCR QUANT(Performed 01/28/2018) * CBC W AUTO DIFFERENTIAL(Performed 01/28/2018) * CBC W AUTO DIFFERENTIAL(Performed 01/28/2018) * XR CHEST 2VW(Performed 01/07/2018) * RESPIRATORY PATHOGEN PANEL BY PCR(Performed 01/07/2018) * CYTOMEGALOVIRUS DNA RT-PCR QUANT(Performed 12/28/2017) * CYTOMEGALOVIRUS DNA RT-PCR QUANT(Performed 12/14/2017) * CYTOMEGALOVIRUS DNA RT-PCR QUANT(Performed 11/24/2017) * CYTOMEGALOVIRUS DNA RT-PCR QUANT(Performed 11/16/2017) * IMMUNOFIXATION BLOOD(Performed 11/05/2017) * PROTEIN ELECTROPHORESIS WO INTERP BLOOD(Performed 11/05/2017) * VITAMIN D 25-HYDROXY(Performed 11/05/2017) * IGG BLOOD(Performed 11/05/2017) * IGM BLOOD(Performed 11/05/2017) * URIC ACID BLOOD(Performed 11/05/2017) * LDH BLOOD(Performed 11/05/2017) * COMPREHENSIVE METABOLIC PANEL(Performed 11/05/2017) * CBC W AUTO DIFFERENTIAL(Performed 11/05/2017) * CYTOMEGALOVIRUS DNA RT-PCR QUANT(Performed 11/05/2017) * CBC W AUTO DIFFERENTIAL(Performed 11/05/2017) * EKG 12-LEAD(Performed 08/14/2017) * CBC W AUTO DIFFERENTIAL(Performed 08/13/2017) * CYTOMEGALOVIRUS DNA RT-PCR QUANT(Performed 08/13/2017) * URIC ACID BLOOD(Performed 08/13/2017) * LDH BLOOD(Performed 08/13/2017) * COMPREHENSIVE METABOLIC PANEL(Performed 08/13/2017) * PROTEIN ELECTROPHORESIS WO INTERP BLOOD(Performed 08/13/2017) * IMMUNOFIXATION BLOOD(Performed 08/13/2017) * IGG BLOOD(Performed 08/13/2017) * IGM BLOOD(Performed 08/13/2017) * CBC W AUTO DIFFERENTIAL(Performed 08/13/2017) * COPPER BLOOD(Performed 06/23/2017) * ZINC BLOOD(Performed 06/23/2017) * FOLATE(Performed 06/23/2017) * IGG BLOOD(Performed 06/23/2017) * CBC W AUTO DIFFERENTIAL(Performed 06/23/2017) * CBC W AUTO DIFFERENTIAL(Performed 06/23/2017) * DERMATOPATHOLOGY(Performed 06/08/2017) * CBC W AUTO DIFFERENTIAL(Performed 05/21/2017) * CBC W AUTO DIFFERENTIAL(Performed 05/21/2017) * CYTOMEGALOVIRUS DNA RT-PCR QUANT(Performed 05/21/2017) * IMMUNOFIXATION BLOOD(Performed 05/21/2017) * PROTEIN ELECTROPHORESIS WO INTERP BLOOD(Performed 05/21/2017) * IGG BLOOD(Performed 05/21/2017) * IGM BLOOD(Performed 05/21/2017) * URIC ACID BLOOD(Performed 05/21/2017) * LDH BLOOD(Performed 05/21/2017) * COMPREHENSIVE METABOLIC PANEL(Performed 05/21/2017) * BK VIRUS PCR QUANTITATIVE URINE(Performed 05/21/2017) * COMPREHENSIVE METABOLIC PANEL(Performed 04/08/2017) * CBC W AUTO DIFFERENTIAL(Performed 04/08/2017) * CBC W AUTO DIFFERENTIAL(Performed 04/08/2017) * IMMUNOFIXATION BLOOD(Performed 03/31/2017) * PROTEIN ELECTROPHORESIS WO INTERP BLOOD(Performed 03/31/2017) * IGM BLOOD(Performed 03/31/2017) * COMPREHENSIVE METABOLIC PANEL(Performed 03/31/2017) * CBC W AUTO DIFFERENTIAL(Performed 03/31/2017) * CBC W AUTO DIFFERENTIAL(Performed 03/31/2017) * HEPATIC FUNCTION PANEL(Performed 03/11/2017) * COMPLETE PFT W/WO BRONCHODILATOR(Performed 03/02/2017) * BK VIRUS PCR QUANTITATIVE URINE(Performed 02/26/2017) * CYTOMEGALOVIRUS DNA RT-PCR QUANT(Performed 02/26/2017) * CD4 (ABSOLUTE T4)(Performed 02/26/2017) * COMPREHENSIVE METABOLIC PANEL(Performed 02/26/2017) * URIC ACID BLOOD(Performed 02/26/2017) * LDH BLOOD(Performed 02/26/2017) * CBC W AUTO DIFFERENTIAL(Performed 02/26/2017) * IMMUNOFIXATION BLOOD(Performed 02/26/2017) * PROTEIN ELECTROPHORESIS WO INTERP BLOOD(Performed 02/26/2017) * IGM BLOOD(Performed 02/26/2017) * IGG BLOOD(Performed 02/26/2017) * CBC W AUTO DIFFERENTIAL(Performed 02/26/2017) * EKG 12-LEAD(Performed 01/30/2017) * PROTEIN ELECTROPHORESIS WO INTERP BLOOD(Performed 01/13/2017) * IMMUNOFIXATION BLOOD(Performed 01/13/2017) * CD4 (ABSOLUTE T4)(Performed 01/13/2017) * IGM BLOOD(Performed 01/13/2017) * VITAMIN D 25-HYDROXY(Performed 01/13/2017) * LDH BLOOD(Performed 01/13/2017) * COMPREHENSIVE METABOLIC PANEL(Performed 01/13/2017) * CBC W AUTO DIFFERENTIAL(Performed 01/13/2017) * CBC W AUTO DIFFERENTIAL(Performed 01/13/2017) * PATHOLOGY/GENETICS HISTORICAL-ONBASE(Performed 01/12/2017) * PATHOLOGY TISSUE(Performed 01/05/2017) * CYTOGENETICS CANCER PANEL(Performed 01/05/2017) * CHROMOSOME ANALYSIS PANEL(Performed 01/05/2017) * HOLD SPECIMEN DNA TISSUE(Performed 01/05/2017) * CYTOGENETICS CANCER PANEL(Performed 01/05/2017) Performed for Waldenstrom macroglobulinemia * FLOW CYTOMETRY PANEL(Performed 01/05/2017) * CBC W AUTO DIFFERENTIAL(Performed 01/05/2017) * CBC W AUTO DIFFERENTIAL(Performed 01/05/2017) * CT CHEST ABDOMEN PELVIS W CONT(Performed 01/05/2017) * CREATININE BLOOD - POCT (IP) [facility](Performed 01/05/2017) * CYTOMEGALOVIRUS DNA RT-PCR QUANT(Performed 12/15/2016) * COMPLETE PFT W/WO BRONCHODILATOR(Performed 12/08/2016) * RESPIRATORY PATHOGEN PANEL BY PCR(Performed 12/04/2016) * IGG BLOOD(Performed 12/04/2016) * COMPREHENSIVE METABOLIC PANEL(Performed 12/04/2016) * LDH BLOOD(Performed 12/04/2016) * URIC ACID BLOOD(Performed 12/04/2016) * CBC W AUTO DIFFERENTIAL(Performed 12/04/2016) * CYTOMEGALOVIRUS DNA RT-PCR QUANT(Performed 12/04/2016) * CBC W AUTO DIFFERENTIAL(Performed 12/04/2016) * BK VIRUS PCR QUANTITATIVE URINE(Performed 11/17/2016) * LDH BLOOD(Performed 11/13/2016) * COMPREHENSIVE METABOLIC PANEL(Performed 11/13/2016) * IGM BLOOD(Performed 11/13/2016) * CBC W AUTO DIFFERENTIAL(Performed 11/13/2016) * CYTOMEGALOVIRUS DNA RT-PCR QUANT(Performed 11/13/2016) * CBC W AUTO DIFFERENTIAL(Performed 11/13/2016) * CYTOMEGALOVIRUS DNA RT-PCR QUANT(Performed 11/13/2016) * CYTOMEGALOVIRUS DNA RT-PCR QUANT(Performed 11/13/2016) * EKG 12-LEAD(Performed 11/07/2016) * BASIC METABOLIC PANEL (CALCIUM TOTAL)(Performed 10/31/2016) * CYTOMEGALOVIRUS DNA RT-PCR QUANT(Performed 10/31/2016) * IR CENTRAL LINE REMOVAL(Performed 10/27/2016) * CULTURE URINE(Performed 10/27/2016) * URINALYSIS W/MICROSCOPIC NO CULTURE(Performed 10/27/2016) * BK VIRUS PCR QUANTITATIVE URINE(Performed 10/27/2016) * COMPREHENSIVE METABOLIC PANEL(Performed 10/27/2016) * PHOSPHORUS BLOOD(Performed 10/27/2016) * MAGNESIUM BLOOD(Performed 10/27/2016) * CBC W AUTO DIFFERENTIAL(Performed 10/27/2016) * CYTOMEGALOVIRUS DNA RT-PCR QUANT(Performed 10/27/2016) * CBC W AUTO DIFFERENTIAL(Performed 10/27/2016) * CYTOMEGALOVIRUS DNA RT-PCR QUANT(Performed 10/21/2016) * KAPPA/LAMBDA LITE CHAIN FREE PANEL(Performed 10/21/2016) * IMMUNOFIXATION BLOOD(Performed 10/21/2016) * PROTEIN ELECTROPHORESIS WO INTERP BLOOD(Performed 10/21/2016) * CBC W AUTO DIFFERENTIAL(Performed 10/21/2016) * DIFFERENTIAL MANUAL(Performed 10/21/2016) * IGA BLOOD(Performed 10/21/2016) * IGG BLOOD(Performed 10/21/2016) * IGM BLOOD(Performed 10/21/2016) * PHOSPHORUS BLOOD(Performed 10/21/2016) * MAGNESIUM BLOOD(Performed 10/21/2016) * COMPREHENSIVE METABOLIC PANEL(Performed 10/21/2016) * CBC W AUTO DIFFERENTIAL(Performed 10/21/2016) * CYTOMEGALOVIRUS DNA RT-PCR QUANT(Performed 10/16/2016) * CBC W AUTO DIFFERENTIAL(Performed 10/16/2016) * PHOSPHORUS BLOOD(Performed 10/16/2016) * MAGNESIUM BLOOD(Performed 10/16/2016) * COMPREHENSIVE METABOLIC PANEL(Performed 10/16/2016) * CBC W AUTO DIFFERENTIAL(Performed 10/16/2016) * PHOSPHORUS BLOOD(Performed 10/13/2016) * MAGNESIUM BLOOD(Performed 10/13/2016) * COMPREHENSIVE METABOLIC PANEL(Performed 10/13/2016) * DIFFERENTIAL MANUAL(Performed 10/13/2016) * CBC W AUTO DIFFERENTIAL(Performed 10/13/2016) * CBC W AUTO DIFFERENTIAL(Performed 10/13/2016) * COMPREHENSIVE METABOLIC PANEL(Performed 10/11/2016) * PHOSPHORUS BLOOD(Performed 10/11/2016) * MAGNESIUM BLOOD(Performed 10/11/2016) * CBC W AUTO DIFFERENTIAL(Performed 10/11/2016) * DIFFERENTIAL MANUAL(Performed 10/11/2016) * CBC W AUTO DIFFERENTIAL(Performed 10/11/2016) * CYTOMEGALOVIRUS DNA RT-PCR QUANT(Performed 10/11/2016) * DIFFERENTIAL MANUAL(Performed 10/09/2016) * CBC W AUTO DIFFERENTIAL(Performed 10/09/2016) * COMPREHENSIVE METABOLIC PANEL(Performed 10/09/2016) * PHOSPHORUS BLOOD(Performed 10/09/2016) * MAGNESIUM BLOOD(Performed 10/09/2016) * CBC W AUTO DIFFERENTIAL(Performed 10/09/2016) * DIFFERENTIAL MANUAL(Performed 10/08/2016) * CBC W AUTO DIFFERENTIAL(Performed 10/08/2016) * PHOSPHORUS BLOOD(Performed 10/08/2016) * MAGNESIUM BLOOD(Performed 10/08/2016) * COMPREHENSIVE METABOLIC PANEL(Performed 10/08/2016) * CBC W AUTO DIFFERENTIAL(Performed 10/08/2016) * CYTOMEGALOVIRUS DNA RT-PCR QUANT(Performed 10/07/2016) * DIFFERENTIAL MANUAL(Performed 10/07/2016) * CBC W AUTO DIFFERENTIAL(Performed 10/07/2016) * PHOSPHORUS BLOOD(Performed 10/07/2016) * MAGNESIUM BLOOD(Performed 10/07/2016) * COMPREHENSIVE METABOLIC PANEL(Performed 10/07/2016) * CBC W AUTO DIFFERENTIAL(Performed 10/07/2016) * DIFFERENTIAL MANUAL(Performed 10/06/2016) * CBC W AUTO DIFFERENTIAL(Performed 10/06/2016) * PHOSPHORUS BLOOD(Performed 10/06/2016) * MAGNESIUM BLOOD(Performed 10/06/2016) * COMPREHENSIVE METABOLIC PANEL(Performed 10/06/2016) * CBC W AUTO DIFFERENTIAL(Performed 10/06/2016) * DIFFERENTIAL MANUAL(Performed 10/05/2016) * CBC W AUTO DIFFERENTIAL(Performed 10/05/2016) * PHOSPHORUS BLOOD(Performed 10/05/2016) * MAGNESIUM BLOOD(Performed 10/05/2016) * COMPREHENSIVE METABOLIC PANEL(Performed 10/05/2016) * CBC W AUTO DIFFERENTIAL(Performed 10/05/2016) * DIFFERENTIAL MANUAL(Performed 10/04/2016) * PHOSPHORUS BLOOD(Performed 10/04/2016) * MAGNESIUM BLOOD(Performed 10/04/2016) * COMPREHENSIVE METABOLIC PANEL(Performed 10/04/2016) * CBC W AUTO DIFFERENTIAL(Performed 10/04/2016) * CBC W AUTO DIFFERENTIAL(Performed 10/04/2016) * VANCOMYCIN LEVEL TROUGH(Performed 10/03/2016) * DIFFERENTIAL MANUAL(Performed 10/03/2016) * CBC W AUTO DIFFERENTIAL(Performed 10/03/2016) * PHOSPHORUS BLOOD(Performed 10/03/2016) * MAGNESIUM BLOOD(Performed 10/03/2016) * COMPREHENSIVE METABOLIC PANEL(Performed 10/03/2016) * CBC W AUTO DIFFERENTIAL(Performed 10/03/2016) * EKG 12-LEAD(Performed 10/03/2016) * DIFFERENTIAL MANUAL(Performed 10/02/2016) * CBC W AUTO DIFFERENTIAL(Performed 10/02/2016) * PHOSPHORUS BLOOD(Performed 10/02/2016) * MAGNESIUM BLOOD(Performed 10/02/2016) * COMPREHENSIVE METABOLIC PANEL(Performed 10/02/2016) * CBC W AUTO DIFFERENTIAL(Performed 10/02/2016) * VANCOMYCIN LEVEL TROUGH(Performed 10/01/2016) * TYPE + SCREEN PANEL(Performed 10/01/2016) * CROSSMATCH RBC LEUKOREDUCED(Performed 10/01/2016) * CYTOMEGALOVIRUS DNA RT-PCR QUANT(Performed 10/01/2016) * DIFFERENTIAL MANUAL(Performed 10/01/2016) * CBC W AUTO DIFFERENTIAL(Performed 10/01/2016) * MAGNESIUM BLOOD(Performed 10/01/2016) * COMPREHENSIVE METABOLIC PANEL(Performed 10/01/2016) * PHOSPHORUS BLOOD(Performed 10/01/2016) * CBC W AUTO DIFFERENTIAL(Performed 10/01/2016) * PLATELET COUNT AUTO(Performed 09/30/2016) * URINALYSIS W/MICROSCOPIC NO CULTURE(Performed 09/30/2016) * XR CHEST 1VW PORTABLE(Performed 09/30/2016) * CULTURE BLOOD(Performed 09/30/2016) * CULTURE BLOOD(Performed 09/30/2016) * DIFFERENTIAL MANUAL(Performed 09/30/2016) * CBC W AUTO DIFFERENTIAL(Performed 09/30/2016) * PHOSPHORUS BLOOD(Performed 09/30/2016) * MAGNESIUM BLOOD(Performed 09/30/2016) * COMPREHENSIVE METABOLIC PANEL(Performed 09/30/2016) * CBC W AUTO DIFFERENTIAL(Performed 09/30/2016) * C DIFFICILE GDH AG + TOXIN A+B(Performed 09/29/2016) * CULTURE BLOOD(Performed 09/29/2016) * CULTURE BLOOD(Performed 09/29/2016) * DIFFERENTIAL MANUAL(Performed 09/29/2016) * CBC W AUTO DIFFERENTIAL(Performed 09/29/2016) * PHOSPHORUS BLOOD(Performed 09/29/2016) * MAGNESIUM BLOOD(Performed 09/29/2016) * COMPREHENSIVE METABOLIC PANEL(Performed 09/29/2016) * CBC W AUTO DIFFERENTIAL(Performed 09/29/2016) * EKG 12-LEAD(Performed 09/29/2016) * PLATELET COUNT AUTO(Performed 09/28/2016) * DIFFERENTIAL MANUAL(Performed 09/28/2016) * CBC W AUTO DIFFERENTIAL(Performed 09/28/2016) * PHOSPHORUS BLOOD(Performed 09/28/2016) * MAGNESIUM BLOOD(Performed 09/28/2016) * COMPREHENSIVE METABOLIC PANEL(Performed 09/28/2016) * CBC W AUTO DIFFERENTIAL(Performed 09/28/2016) * PLATELET COUNT AUTO(Performed 09/27/2016) * DIFFERENTIAL MANUAL(Performed 09/27/2016) * CBC W AUTO DIFFERENTIAL(Performed 09/27/2016) * PHOSPHORUS BLOOD(Performed 09/27/2016) * MAGNESIUM BLOOD(Performed 09/27/2016) * COMPREHENSIVE METABOLIC PANEL(Performed 09/27/2016) * CBC W AUTO DIFFERENTIAL(Performed 09/27/2016) * DIFFERENTIAL MANUAL(Performed 09/26/2016) * CBC W AUTO DIFFERENTIAL(Performed 09/26/2016) * PHOSPHORUS BLOOD(Performed 09/26/2016) * MAGNESIUM BLOOD(Performed 09/26/2016) * COMPREHENSIVE METABOLIC PANEL(Performed 09/26/2016) * CBC W AUTO DIFFERENTIAL(Performed 09/26/2016) * AMIKACIN LEVEL RANDOM(Performed 09/25/2016) * CULTURE URINE(Performed 09/25/2016) * URINALYSIS W/MICROSCOPIC NO CULTURE(Performed 09/25/2016) * XR CHEST 1VW PORTABLE(Performed 09/25/2016) * CULTURE BLOOD(Performed 09/25/2016) * CULTURE BLOOD(Performed 09/25/2016) * CULTURE BLOOD(Performed 09/25/2016) * CULTURE BLOOD(Performed 09/25/2016) * DIFFERENTIAL MANUAL(Performed 09/25/2016) * CBC W AUTO DIFFERENTIAL(Performed 09/25/2016) * PHOSPHORUS BLOOD(Performed 09/25/2016) * MAGNESIUM BLOOD(Performed 09/25/2016) * COMPREHENSIVE METABOLIC PANEL(Performed 09/25/2016) * CBC W AUTO DIFFERENTIAL(Performed 09/25/2016) * C DIFFICILE GDH AG + TOXIN A+B(Performed 09/24/2016) * DIFFERENTIAL MANUAL(Performed 09/24/2016) * CBC W AUTO DIFFERENTIAL(Performed 09/24/2016) * PHOSPHORUS BLOOD(Performed 09/24/2016) * MAGNESIUM BLOOD(Performed 09/24/2016) * COMPREHENSIVE METABOLIC PANEL(Performed 09/24/2016) * CBC W AUTO DIFFERENTIAL(Performed 09/24/2016) * EKG 12-LEAD(Performed 09/24/2016) * DIFFERENTIAL MANUAL(Performed 09/23/2016) * CBC W AUTO DIFFERENTIAL(Performed 09/23/2016) * PHOSPHORUS BLOOD(Performed 09/23/2016) * MAGNESIUM BLOOD(Performed 09/23/2016) * COMPREHENSIVE METABOLIC PANEL(Performed 09/23/2016) * CBC W AUTO DIFFERENTIAL(Performed 09/23/2016) * CYTOMEGALOVIRUS DNA RT-PCR QUANT(Performed 09/22/2016) * PHOSPHORUS BLOOD(Performed 09/22/2016) * MAGNESIUM BLOOD(Performed 09/22/2016) * COMPREHENSIVE METABOLIC PANEL(Performed 09/22/2016) * CBC W AUTO DIFFERENTIAL(Performed 09/22/2016) * CBC W AUTO DIFFERENTIAL(Performed 09/22/2016) * TYPE + SCREEN PANEL(Performed 09/21/2016) * PHOSPHORUS BLOOD(Performed 09/21/2016) * MAGNESIUM BLOOD(Performed 09/21/2016) * COMPREHENSIVE METABOLIC PANEL(Performed 09/21/2016) * CBC W AUTO DIFFERENTIAL(Performed 09/21/2016) * CBC W AUTO DIFFERENTIAL(Performed 09/21/2016) * EKG 12-LEAD(Performed 09/21/2016) * PHOSPHORUS BLOOD(Performed 09/20/2016) * MAGNESIUM BLOOD(Performed 09/20/2016) * COMPREHENSIVE METABOLIC PANEL(Performed 09/20/2016) * CBC W AUTO DIFFERENTIAL(Performed 09/20/2016) * CBC W AUTO DIFFERENTIAL(Performed 09/20/2016) * PHOSPHORUS BLOOD(Performed 09/19/2016) * MAGNESIUM BLOOD(Performed 09/19/2016) * COMPREHENSIVE METABOLIC PANEL(Performed 09/19/2016) * CBC W AUTO DIFFERENTIAL(Performed 09/19/2016) * CBC W AUTO DIFFERENTIAL(Performed 09/19/2016) * PHOSPHORUS BLOOD(Performed 09/18/2016) * MAGNESIUM BLOOD(Performed 09/18/2016) * COMPREHENSIVE METABOLIC PANEL(Performed 09/18/2016) * CBC W AUTO DIFFERENTIAL(Performed 09/18/2016) * CBC W AUTO DIFFERENTIAL(Performed 09/18/2016) * EKG 12-LEAD(Performed 09/18/2016) * PHOSPHORUS BLOOD(Performed 09/17/2016) * MAGNESIUM BLOOD(Performed 09/17/2016) * COMPREHENSIVE METABOLIC PANEL(Performed 09/17/2016) * CBC W AUTO DIFFERENTIAL(Performed 09/17/2016) * CBC W AUTO DIFFERENTIAL(Performed 09/17/2016) * CBC W AUTO DIFFERENTIAL(Performed 09/16/2016) * PHOSPHORUS BLOOD(Performed 09/16/2016) * MAGNESIUM BLOOD(Performed 09/16/2016) * COMPREHENSIVE METABOLIC PANEL(Performed 09/16/2016) * CBC W AUTO DIFFERENTIAL(Performed 09/16/2016) * CYTOMEGALOVIRUS DNA RT-PCR QUANT(Performed 09/15/2016) * CBC W AUTO DIFFERENTIAL(Performed 09/15/2016) * PHOSPHORUS BLOOD(Performed 09/15/2016) * MAGNESIUM BLOOD(Performed 09/15/2016) * COMPREHENSIVE METABOLIC PANEL(Performed 09/15/2016) * CBC W AUTO DIFFERENTIAL(Performed 09/15/2016) * EKG 12-LEAD(Performed 09/15/2016) * CYTOMEGALOVIRUS DNA RT-PCR QUANT(Performed 09/08/2016) * DIFFERENTIAL MANUAL(Performed 09/03/2016) * CBC W AUTO DIFFERENTIAL(Performed 09/03/2016) * CBC W AUTO DIFFERENTIAL(Performed 09/03/2016) * FLOW CTP CD3/CD34/CD45 COUNT RESULT ONLY(Performed 09/03/2016) * CALCIUM IONIZED WHOLE BLOOD(Performed 09/03/2016) * POTASSIUM BLOOD(Performed 09/03/2016) * MAGNESIUM BLOOD(Performed 09/03/2016) * FLOW CYTOMETRY CD34 COUNT HPC PRODUCT(Performed 09/03/2016) * TYPE + SCREEN PANEL(Performed 09/03/2016) * DIFFERENTIAL MANUAL(Performed 09/03/2016) * CBC W AUTO DIFFERENTIAL(Performed 09/03/2016) * CBC W AUTO DIFFERENTIAL(Performed 09/03/2016) * DIFFERENTIAL MANUAL(Performed 09/02/2016) * CBC W AUTO DIFFERENTIAL(Performed 09/02/2016) * PHOSPHORUS BLOOD(Performed 09/02/2016) * MAGNESIUM BLOOD(Performed 09/02/2016) * COMPREHENSIVE METABOLIC PANEL(Performed 09/02/2016) * CBC W AUTO DIFFERENTIAL(Performed 09/02/2016) * CALCIUM IONIZED WHOLE BLOOD(Performed 09/02/2016) * IR PICC LINE INSERT(Performed 09/01/2016) * IR CENTRAL LINE INSERT TUNNEL(Performed 09/01/2016) * IR US GUIDE VASCULAR ACCESS(Performed 09/01/2016) * TYPE + SCREEN PANEL(Performed 08/30/2016) * CBC W AUTO DIFFERENTIAL(Performed 08/30/2016) * PHOSPHORUS BLOOD(Performed 08/30/2016) * MAGNESIUM BLOOD(Performed 08/30/2016) * COMPREHENSIVE METABOLIC PANEL(Performed 08/30/2016) * CBC W AUTO DIFFERENTIAL(Performed 08/30/2016) * INFECTIOUS DISEASE TESTING NTL(Performed 08/22/2016) * CYTOMEGALOVIRUS DNA RT-PCR QUANT(Performed 08/22/2016) * TYPE + SCREEN PANEL(Performed 08/22/2016) * LIPID PROFILE(Performed 08/22/2016) * FERRITIN(Performed 08/22/2016) * TRANSFERRIN(Performed 08/22/2016) * EKG 12-LEAD(Performed 08/22/2016) * CREATININE CLEARANCE URINE TIMED + BLOOD(Performed 08/19/2016) * CREATININE CLEARANCE URINE TIMED + BLOOD(Performed 08/19/2016) * URINALYSIS REFLEX TO MICROSCOPIC NO CULTURE(Performed 08/19/2016) * PROTEIN URINE TIMED QUANTITATIVE(Performed 08/19/2016) * CREATININE BLOOD(Performed 08/19/2016) * CREATININE CLEARANCE URINE TIMED + BLOOD(Performed 08/19/2016) * MICKEY-WALTON VIRUS ANTIBODY TO VCA IGG(Performed 08/19/2016) * PROTEIN ELECTROPHORESIS WO INTERP BLOOD(Performed 08/19/2016) * TRANSFERRIN(Performed 08/19/2016) * HEPATITIS B SURFACE ANTIBODY(Performed 08/19/2016) * IGA BLOOD(Performed 08/19/2016) * IGM BLOOD(Performed 08/19/2016) * IGG BLOOD(Performed 08/19/2016) * MICKEY-WALTON VIRUS ANTIBODY TO VCA IGM(Performed 08/19/2016) * CYTOMEGALOVIRUS ANTIBODY IGG BLOOD(Performed 08/19/2016) * VITAMIN D 25-HYDROXY(Performed 08/19/2016) * CHOLESTEROL BLOOD(Performed 08/19/2016) * COMPREHENSIVE METABOLIC PANEL(Performed 08/19/2016) * PHOSPHORUS BLOOD(Performed 08/19/2016) * MAGNESIUM BLOOD(Performed 08/19/2016) * LDH BLOOD(Performed 08/19/2016) * URIC ACID BLOOD(Performed 08/19/2016) * HERPES SIMPLEX 1+2 AB IGG SPEC(Performed 08/19/2016) * TOXOPLASMA GONDII ANTIBODY IGG(Performed 08/19/2016) * HERPES SIMPLEX 1+2 ANTIBODY IGM(Performed 08/19/2016) * VARICELLA ZOSTER ANTIBODY IGM(Performed 08/19/2016) * CYTOMEGALOVIRUS ANTIBODY IGM BLOOD(Performed 08/19/2016) * VARICELLA ZOSTER ANTIBODY IGG(Performed 08/19/2016) * SICKLE CELL SCREEN(Performed 08/19/2016) * CBC W AUTO DIFFERENTIAL(Performed 08/19/2016) * RETIC COUNT(Performed 08/19/2016) * CYTOMEGALOVIRUS DNA RT-PCR QUANT(Performed 08/19/2016) * FIBRINOGEN ACTIVITY(Performed 08/19/2016) * PTT SLH(Performed 08/19/2016) * PT-INR SLH(Performed 08/19/2016) * CBC W AUTO DIFFERENTIAL(Performed 08/19/2016) * XR PANOREX(Performed 08/19/2016) * XR CHEST 2VW(Performed 08/19/2016) * CT CHEST ABDOMEN PELVIS W CONT(Performed 08/19/2016) * EKG 12-LEAD(Performed 08/19/2016) * PROC LEXISCAN CARDIOLYTE STRESS TST(Performed 08/05/2016) * PROC STRESS TEST EXERCISE(Performed 2016) * PFT-LAB(Performed 2016) * CHROMOSOME ANALYSIS PANEL(Performed 07/28/2016) * CYTOGENETICS CANCER PANEL(Performed 07/28/2016) * PATHOLOGY TISSUE(Performed 07/28/2016) * HOLD SPECIMEN DNA TISSUE(Performed 07/28/2016) * FLOW CYTOMETRY PANEL(Performed 07/28/2016) * CYTOGENETICS CANCER PANEL(Performed 07/28/2016) * IGM BLOOD(Performed 07/28/2016) * LDH BLOOD(Performed 07/28/2016) * COMPREHENSIVE METABOLIC PANEL(Performed 07/28/2016) * CBC W AUTO DIFFERENTIAL(Performed 07/28/2016) * CBC W AUTO DIFFERENTIAL(Performed 07/28/2016) * CYTOMEGALOVIRUS DNA RT-PCR QUANT(Performed 07/28/2016) * CREATININE BLOOD(Performed 07/28/2016) * CREATININE CLEARANCE URINE TIMED + BLOOD(Performed 07/28/2016) * CREATININE CLEARANCE URINE TIMED + BLOOD(Performed 07/28/2016) * ECHO EDWARDO W CARDIOVERSION(Performed 07/16/2016) * FERRITIN(Performed 07/08/2016) * QUANTIFERON TB-GOLD (CLIENT INCUBATED)(Performed 07/08/2016) * CYTOMEGALOVIRUS ANTIBODY IGG BLOOD(Performed 07/08/2016) * NICOTINE METABOLITE URINE(Performed 07/08/2016) * HEPATITIS C ANTIBODY(Performed 07/08/2016) * HIV-1 HIV-2 ANTIGEN/ANTIBODY(Performed 07/08/2016) * DRUG ABUSE PANEL 10-20+ETHANOL URINE NO CONFIRM(Performed 07/08/2016) * IGG BLOOD(Performed 07/08/2016) * TRIGLYCERIDES BLOOD(Performed 07/08/2016) * PROTEIN ELECTROPHORESIS WO INTERP BLOOD(Performed 07/07/2016) * IGM BLOOD(Performed 07/07/2016) * COMPREHENSIVE METABOLIC PANEL(Performed 07/07/2016) * LDH BLOOD(Performed 07/07/2016) * CBC W AUTO DIFFERENTIAL(Performed 07/07/2016) * CBC W AUTO DIFFERENTIAL(Performed 07/07/2016) * CYTOMEGALOVIRUS DNA RT-PCR QUANT(Performed 07/07/2016) * PROTEIN ELECTROPHORESIS WO INTERP BLOOD(Performed 06/11/2016) * COMPREHENSIVE METABOLIC PANEL(Performed 06/11/2016) * LDH BLOOD(Performed 06/11/2016) * IGM BLOOD(Performed 06/11/2016) * CBC W AUTO DIFFERENTIAL(Performed 06/11/2016) * CBC W AUTO DIFFERENTIAL(Performed 06/11/2016) * CYTOMEGALOVIRUS DNA RT-PCR QUANT(Performed 06/11/2016) * XR LUMBAR SPINE 2 OR 3VW(Performed 06/09/2016) * EKG 12-LEAD(Performed 05/30/2016) * COMPREHENSIVE METABOLIC PANEL(Performed 05/12/2016) * LDH BLOOD(Performed 05/12/2016) * CBC W AUTO DIFFERENTIAL(Performed 05/12/2016) * DIFFERENTIAL MANUAL(Performed 05/12/2016) * CBC W AUTO DIFFERENTIAL(Performed 05/12/2016) * PROTEIN ELECTROPHORESIS WO INTERP BLOOD(Performed 05/12/2016) * IGM BLOOD(Performed 05/12/2016) * CYTOMEGALOVIRUS DNA RT-PCR QUANT(Performed 05/12/2016) * IGM BLOOD(Performed 04/29/2016) * COMPREHENSIVE METABOLIC PANEL(Performed 04/29/2016) * CBC W AUTO DIFFERENTIAL(Performed 04/29/2016) * CBC W AUTO DIFFERENTIAL(Performed 04/29/2016) * CT HEAD W CONTRAST(Performed 04/22/2016) * COMPREHENSIVE METABOLIC PANEL(Performed 04/14/2016) * LDH BLOOD(Performed 04/14/2016) * PROTEIN ELECTROPHORESIS WO INTERP BLOOD(Performed 04/14/2016) * IGM BLOOD(Performed 04/14/2016) * CYTOMEGALOVIRUS DNA RT-PCR QUANT(Performed 04/14/2016) * CBC W AUTO DIFFERENTIAL(Performed 04/14/2016) * CBC W AUTO DIFFERENTIAL(Performed 04/14/2016) * PROTEIN ELECTROPHORESIS WO INTERP BLOOD(Performed 04/10/2016) * IGM BLOOD(Performed 04/10/2016) * COMPREHENSIVE METABOLIC PANEL(Performed 04/10/2016) * CBC W/O DIFFERENTIAL(Performed 04/10/2016) * DERMATOPATHOLOGY(Performed 04/04/2016) * IGM BLOOD(Performed 03/31/2016) * CBC W AUTO DIFFERENTIAL(Performed 03/31/2016) * COMPREHENSIVE METABOLIC PANEL(Performed 03/31/2016) * CBC W AUTO DIFFERENTIAL(Performed 03/31/2016) * COMPREHENSIVE METABOLIC PANEL(Performed 03/31/2016) * CBC W AUTO DIFFERENTIAL(Performed 03/31/2016) * PROTEIN ELECTROPHORESIS WO INTERP BLOOD(Performed 03/17/2016) * IGM BLOOD(Performed 03/17/2016) * COMPREHENSIVE METABOLIC PANEL(Performed 03/17/2016) * LDH BLOOD(Performed 03/17/2016) * CBC W AUTO DIFFERENTIAL(Performed 03/17/2016) * CBC W AUTO DIFFERENTIAL(Performed 03/17/2016) * CYTOMEGALOVIRUS DNA RT-PCR QUANT(Performed 03/17/2016) * IGM BLOOD(Performed 03/04/2016) * CBC W AUTO DIFFERENTIAL(Performed 03/04/2016) * COMPREHENSIVE METABOLIC PANEL(Performed 03/04/2016) * CBC W AUTO DIFFERENTIAL(Performed 03/04/2016) * COMPREHENSIVE METABOLIC PANEL(Performed 03/04/2016) * IGM BLOOD(Performed 02/20/2016) * IGM BLOOD(Performed 02/18/2016) * CYTOMEGALOVIRUS DNA RT-PCR QUANT(Performed 02/18/2016) * COMPREHENSIVE METABOLIC PANEL(Performed 02/18/2016) * LDH BLOOD(Performed 02/18/2016) * CBC W AUTO DIFFERENTIAL(Performed 02/18/2016) * CBC W AUTO DIFFERENTIAL(Performed 02/18/2016) * COMPREHENSIVE METABOLIC PANEL(Performed 02/12/2016) * LDH BLOOD(Performed 02/12/2016) * CBC W AUTO DIFFERENTIAL(Performed 02/12/2016) * IGM BLOOD(Performed 02/12/2016) * DERMATOPATHOLOGY(Performed 02/11/2016) * COMPREHENSIVE METABOLIC PANEL(Performed 02/04/2016) * IGM BLOOD(Performed 02/04/2016) * CBC W AUTO DIFFERENTIAL(Performed 02/04/2016) * CBC W AUTO DIFFERENTIAL(Performed 01/28/2016) * CBC W AUTO DIFFERENTIAL(Performed 01/21/2016) * CBC W AUTO DIFFERENTIAL(Performed 01/15/2016) * VISCOSITY(Performed 01/15/2016) * VITAMIN D 25-HYDROXY D2+D3(Performed 01/15/2016) * CBC W AUTO DIFFERENTIAL(Performed 01/15/2016) * CBC W AUTO DIFFERENTIAL(Performed 01/15/2016) * DIFFERENTIAL MANUAL(Performed 01/09/2016) * CBC W AUTO DIFFERENTIAL(Performed 01/09/2016) * CBC W AUTO DIFFERENTIAL(Performed 01/09/2016) * PROTEIN ELECTROPHORESIS WO INTERP BLOOD(Performed 01/07/2016) * IGM BLOOD(Performed 01/07/2016) * COMPREHENSIVE METABOLIC PANEL(Performed 01/07/2016) * VITAMIN B12(Performed 01/07/2016) * CBC W AUTO DIFFERENTIAL(Performed 01/07/2016) * DERMATOPATHOLOGY(Performed 12/31/2015) * COMPREHENSIVE METABOLIC PANEL(Performed 12/18/2015) * IGM BLOOD(Performed 12/18/2015) * CBC W AUTO DIFFERENTIAL(Performed 12/18/2015) * LAB HISTORICAL RESULTS-ONBASE(Performed 12/18/2015) * XR LUMBAR SPINE 2 OR 3VW(Performed 12/05/2015) * EKG 12-LEAD(Performed 11/16/2015) * RISTOCETIN COFACTOR (VWF)(Performed 11/14/2015) * COMPREHENSIVE METABOLIC PANEL(Performed 11/14/2015) * IGM BLOOD(Performed 11/14/2015) * IGA BLOOD(Performed 11/14/2015) * CBC W AUTO DIFFERENTIAL(Performed 11/14/2015) * CBC W AUTO DIFFERENTIAL(Performed 11/14/2015) * VITAMIN D 25-HYDROXY(Performed 10/17/2015) * IGM BLOOD(Performed 10/17/2015) * LDH BLOOD(Performed 10/17/2015) * COMPREHENSIVE METABOLIC PANEL(Performed 10/17/2015) * DIFFERENTIAL MANUAL(Performed 10/17/2015) * CBC W AUTO DIFFERENTIAL(Performed 10/17/2015) * CBC W AUTO DIFFERENTIAL(Performed 10/17/2015) * MAGNESIUM BLOOD(Performed 09/12/2015) * COMPREHENSIVE METABOLIC PANEL(Performed 09/12/2015) * IGM BLOOD(Performed 09/12/2015) * CBC W AUTO DIFFERENTIAL(Performed 09/12/2015) * CBC W AUTO DIFFERENTIAL(Performed 09/12/2015) * MAGNESIUM BLOOD(Performed 08/15/2015) * IGM BLOOD(Performed 08/15/2015) * LDH BLOOD(Performed 08/15/2015) * COMPREHENSIVE METABOLIC PANEL(Performed 08/15/2015) * DIFFERENTIAL MANUAL(Performed 08/15/2015) * CBC W AUTO DIFFERENTIAL(Performed 08/15/2015) * CBC W AUTO DIFFERENTIAL(Performed 08/15/2015) * IGM BLOOD(Performed 07/18/2015) * LDH BLOOD(Performed 07/18/2015) * COMPREHENSIVE METABOLIC PANEL(Performed 07/18/2015) * CBC W AUTO DIFFERENTIAL(Performed 07/18/2015) * CBC W AUTO DIFFERENTIAL(Performed 07/18/2015) * PROTEIN ELECTROPHORESIS WO INTERP BLOOD(Performed 06/20/2015) * VISCOSITY(Performed 06/20/2015) * FOLATE RBC(Performed 06/20/2015) * VITAMIN D 25-HYDROXY(Performed 06/20/2015) * IGM BLOOD(Performed 06/20/2015) * COMPREHENSIVE METABOLIC PANEL(Performed 06/20/2015) * CBC W AUTO DIFFERENTIAL(Performed 06/20/2015) * CBC W AUTO DIFFERENTIAL(Performed 06/20/2015) * XR LUMBAR SPINE 2 OR 3VW(Performed 06/06/2015) * PROTEIN ELECTROPHORESIS WO INTERP BLOOD(Performed 05/16/2015) * VISCOSITY(Performed 05/16/2015) * IGM BLOOD(Performed 05/16/2015) * COMPREHENSIVE METABOLIC PANEL(Performed 05/16/2015) * DIFFERENTIAL MANUAL(Performed 05/16/2015) * CBC W AUTO DIFFERENTIAL(Performed 05/16/2015) * CBC W AUTO DIFFERENTIAL(Performed 05/16/2015) * EKG 12-LEAD(Performed 05/11/2015) * EKG 12-LEAD(Performed 05/02/2015) * IGM BLOOD(Performed 05/01/2015) * CBC W AUTO DIFFERENTIAL(Performed 05/01/2015) * COMPREHENSIVE METABOLIC PANEL(Performed 05/01/2015) * VISCOSITY(Performed 05/01/2015) * IGM BLOOD(Performed 05/01/2015) * CBC W AUTO DIFFERENTIAL(Performed 05/01/2015) * COMPREHENSIVE METABOLIC PANEL(Performed 05/01/2015) * CBC W AUTO DIFFERENTIAL(Performed 05/01/2015) * COMPREHENSIVE METABOLIC PANEL(Performed 05/01/2015) * CBC W AUTO DIFFERENTIAL(Performed 05/01/2015) * VISCOSITY(Performed 04/24/2015) * IGM BLOOD(Performed 04/24/2015) * CBC W AUTO DIFFERENTIAL(Performed 04/24/2015) * COMPREHENSIVE METABOLIC PANEL(Performed 04/24/2015) * IGM BLOOD(Performed 04/24/2015) * CBC W AUTO DIFFERENTIAL(Performed 04/24/2015) * COMPREHENSIVE METABOLIC PANEL(Performed 04/24/2015) * CBC W AUTO DIFFERENTIAL(Performed 04/24/2015) * COMPREHENSIVE METABOLIC PANEL(Performed 04/24/2015) * EKG 12-LEAD(Performed 04/18/2015) * VISCOSITY(Performed 04/17/2015) * IGM BLOOD(Performed 04/17/2015) * CBC W AUTO DIFFERENTIAL(Performed 04/17/2015) * COMPREHENSIVE METABOLIC PANEL(Performed 04/17/2015) * IGM BLOOD(Performed 04/17/2015) * CBC W AUTO DIFFERENTIAL(Performed 04/17/2015) * COMPREHENSIVE METABOLIC PANEL(Performed 04/17/2015) * CBC W AUTO DIFFERENTIAL(Performed 04/17/2015) * COMPREHENSIVE METABOLIC PANEL(Performed 04/17/2015) * CBC W AUTO DIFFERENTIAL(Performed 04/17/2015) * EKG 12-LEAD(Performed 04/11/2015) * VISCOSITY(Performed 04/10/2015) * IGM BLOOD(Performed 04/10/2015) * CBC W AUTO DIFFERENTIAL(Performed 04/10/2015) * COMPREHENSIVE METABOLIC PANEL(Performed 04/10/2015) * IGM BLOOD(Performed 04/10/2015) * CBC W AUTO DIFFERENTIAL(Performed 04/10/2015) * COMPREHENSIVE METABOLIC PANEL(Performed 04/10/2015) * CBC W AUTO DIFFERENTIAL(Performed 04/10/2015) * COMPREHENSIVE METABOLIC PANEL(Performed 04/10/2015) * XR LUMBAR SPINE 2 OR 3VW(Performed 04/04/2015) * EKG 12-LEAD(Performed 04/04/2015) * VISCOSITY(Performed 04/03/2015) * IGM BLOOD(Performed 04/03/2015) * CBC W AUTO DIFFERENTIAL(Performed 04/03/2015) * COMPREHENSIVE METABOLIC PANEL(Performed 04/03/2015) * IGM BLOOD(Performed 04/03/2015) * CBC W AUTO DIFFERENTIAL(Performed 04/03/2015) * COMPREHENSIVE METABOLIC PANEL(Performed 04/03/2015) * CBC W AUTO DIFFERENTIAL(Performed 04/03/2015) * COMPREHENSIVE METABOLIC PANEL(Performed 04/03/2015) * CBC W AUTO DIFFERENTIAL(Performed 04/03/2015) * VITAMIN D 25-HYDROXY D2+D3(Performed 03/27/2015) * IGM BLOOD(Performed 03/27/2015) * CBC W AUTO DIFFERENTIAL(Performed 03/27/2015) * COMPREHENSIVE METABOLIC PANEL(Performed 03/27/2015) * VISCOSITY(Performed 03/27/2015) * IGM BLOOD(Performed 03/27/2015) * CBC W AUTO DIFFERENTIAL(Performed 03/27/2015) * COMPREHENSIVE METABOLIC PANEL(Performed 03/27/2015) * CBC W AUTO DIFFERENTIAL(Performed 03/27/2015) * COMPREHENSIVE METABOLIC PANEL(Performed 03/27/2015) * CBC W AUTO DIFFERENTIAL(Performed 03/27/2015) * MRI LUMBAR SPINE WWO CONTRAST(Performed 03/21/2015) * EKG 12-LEAD(Performed 03/21/2015) * IGM BLOOD(Performed 03/20/2015) * CBC W AUTO DIFFERENTIAL(Performed 03/20/2015) * COMPREHENSIVE METABOLIC PANEL(Performed 03/20/2015) * VISCOSITY(Performed 03/20/2015) * IGM BLOOD(Performed 03/20/2015) * CBC W AUTO DIFFERENTIAL(Performed 03/20/2015) * COMPREHENSIVE METABOLIC PANEL(Performed 03/20/2015) * CYTOGENETICS CANCER PANEL(Performed 03/16/2015) * CHROMOSOME ANALYSIS PANEL(Performed 03/16/2015) * PATHOLOGY TISSUE(Performed 03/16/2015) * HOLD SPECIMEN DNA TISSUE(Performed 03/16/2015) * LAB MISC TEST(Performed 03/16/2015) * FLOW CYTOMETRY PANEL(Performed 03/16/2015) * IGM BLOOD(Performed 03/16/2015) * COMPREHENSIVE METABOLIC PANEL(Performed 03/16/2015) * CBC W AUTO DIFFERENTIAL(Performed 03/16/2015) * CBC W AUTO DIFFERENTIAL(Performed 03/16/2015) * CYTOGENETICS CANCER PANEL(Performed 03/16/2015) Performed for [place] macroglobulinemia [ICD-9-CM] * IGM BLOOD(Performed 03/15/2015) * CRYOGLOBULIN QUALITATIVE(Performed 03/15/2015) * ALDOLASE(Performed 03/15/2015) * IGM BLOOD(Performed 03/15/2015) * PT-INR SLH(Performed 03/15/2015) * CK BLOOD(Performed 03/15/2015) * CBC W/O DIFFERENTIAL(Performed 03/15/2015) * CALCIUM IONIZED WHOLE BLOOD(Performed 03/15/2015) * PROTEIN ELECTROPHORESIS WO INTERP BLOOD(Performed 03/14/2015) * IMMUNOFIXATION BLOOD(Performed 03/14/2015) * KAPPA/LAMBDA LITE CHAIN FREE PANEL(Performed 03/14/2015) * LDH BLOOD(Performed 03/14/2015) * URIC ACID BLOOD(Performed 03/14/2015) * IGM BLOOD(Performed 03/13/2015) * VISCOSITY(Performed 03/13/2015) * CBC W AUTO DIFFERENTIAL(Performed 03/13/2015) * COMPREHENSIVE METABOLIC PANEL(Performed 03/13/2015) * CBC W AUTO DIFFERENTIAL(Performed 03/13/2015) * COMPREHENSIVE METABOLIC PANEL(Performed 03/13/2015) * CBC W AUTO DIFFERENTIAL(Performed 03/13/2015) * COMPREHENSIVE METABOLIC PANEL(Performed 03/13/2015) * CBC W AUTO DIFFERENTIAL(Performed 03/13/2015) * VISCOSITY(Performed 03/07/2015) * IGM BLOOD(Performed 03/07/2015) * CBC W AUTO DIFFERENTIAL(Performed 03/07/2015) * COMPREHENSIVE METABOLIC PANEL(Performed 03/07/2015) * IGM BLOOD(Performed 03/07/2015) * CBC W AUTO DIFFERENTIAL(Performed 03/07/2015) * COMPREHENSIVE METABOLIC PANEL(Performed 03/07/2015) * CBC W AUTO DIFFERENTIAL(Performed 03/07/2015) * COMPREHENSIVE METABOLIC PANEL(Performed 03/07/2015) * COMPREHENSIVE METABOLIC PANEL(Performed 03/07/2015) * IGM BLOOD(Performed 02/28/2015) * CBC W AUTO DIFFERENTIAL(Performed 02/28/2015) * COMPREHENSIVE METABOLIC PANEL(Performed 02/28/2015) * VISCOSITY(Performed 02/28/2015) * IGM BLOOD(Performed 02/28/2015) * CBC W AUTO DIFFERENTIAL(Performed 02/28/2015) * COMPREHENSIVE METABOLIC PANEL(Performed 02/28/2015) * CBC W AUTO DIFFERENTIAL(Performed 02/28/2015) * COMPREHENSIVE METABOLIC PANEL(Performed 02/28/2015) * CBC W AUTO DIFFERENTIAL(Performed 02/28/2015) * PROTEIN ELECTROPHORESIS WO INTERP BLOOD(Performed 02/21/2015) * IMMUNOFIXATION BLOOD(Performed 02/21/2015) * KAPPA/LAMBDA LITE CHAIN FREE PANEL(Performed 02/21/2015) * IGM BLOOD(Performed 02/21/2015) * DERMATOPATHOLOGY(Performed 02/21/2015) * IGM BLOOD(Performed 02/20/2015) * CBC W AUTO DIFFERENTIAL(Performed 02/20/2015) * COMPREHENSIVE METABOLIC PANEL(Performed 02/20/2015) * VISCOSITY(Performed 02/20/2015) * IGM BLOOD(Performed 02/20/2015) * CBC W AUTO DIFFERENTIAL(Performed 02/20/2015) * COMPREHENSIVE METABOLIC PANEL(Performed 02/20/2015) * CBC W AUTO DIFFERENTIAL(Performed 02/20/2015) * CBC W AUTO DIFFERENTIAL(Performed 02/20/2015) * IGM BLOOD(Performed 02/14/2015) * CBC W AUTO DIFFERENTIAL(Performed 02/14/2015) * VISCOSITY(Performed 02/14/2015) * COMPREHENSIVE METABOLIC PANEL(Performed 02/14/2015) * IGM BLOOD(Performed 02/14/2015) * CBC W AUTO DIFFERENTIAL(Performed 02/14/2015) * COMPREHENSIVE METABOLIC PANEL(Performed 02/14/2015) * CBC W AUTO DIFFERENTIAL(Performed 02/14/2015) * COMPREHENSIVE METABOLIC PANEL(Performed 02/14/2015) * CBC W AUTO DIFFERENTIAL(Performed 02/14/2015) * EKG 12-LEAD(Performed 02/09/2015) * IGM BLOOD(Performed 02/07/2015) * CBC W AUTO DIFFERENTIAL(Performed 02/07/2015) * COMPREHENSIVE METABOLIC PANEL(Performed 02/07/2015) * CBC W AUTO DIFFERENTIAL(Performed 02/07/2015) * COMPREHENSIVE METABOLIC PANEL(Performed 02/07/2015) * CBC W AUTO DIFFERENTIAL(Performed 02/07/2015) * IMMUNOFIXATION BLOOD(Performed 01/31/2015) * KAPPA/LAMBDA LITE CHAIN FREE PANEL(Performed 01/31/2015) * PROTEIN ELECTROPHORESIS WO INTERP BLOOD(Performed 01/31/2015) * CD4 (ABSOLUTE T4)(Performed 01/31/2015) * IGM BLOOD(Performed 01/31/2015) * COMPREHENSIVE METABOLIC PANEL(Performed 01/31/2015) * LDH BLOOD(Performed 01/31/2015) * URIC ACID BLOOD(Performed 01/31/2015) * DIFFERENTIAL MANUAL(Performed 01/31/2015) * CBC W AUTO DIFFERENTIAL(Performed 01/31/2015) * CBC W AUTO DIFFERENTIAL(Performed 01/31/2015) * DIFFERENTIAL MANUAL FLUID(Performed 01/24/2015) * CELL COUNT CSF(Performed 01/24/2015) * CELL COUNT W DIFF CSF(Performed 01/24/2015) * PROTEIN CSF(Performed 01/24/2015) * GLUCOSE CSF(Performed 01/24/2015) * FL LUMBAR PUNCTURE(Performed 01/24/2015) * LAB MISC TEST(Performed 01/24/2015) * OLIGOCLONAL BANDS CSF+BLOOD PANEL(Performed 01/24/2015) * ANGIOTENSIN CONVERTING ENZYME CSF(Performed 01/24/2015) * FLOW CYTOMETRY PANEL(Performed 01/24/2015) * CULTURE CYTOMEGALOVIRUS(Performed 01/24/2015) * LAB MISC TEST(Performed 01/18/2015) * CT GUIDED NEEDLE PLACEMENT(Performed 01/18/2015) * CT GUIDED NEEDLE PLACEMENT(Performed 01/18/2015) * PATHOLOGY TISSUE(Performed 01/18/2015) * MRI CARDIAC STUDY WWO CONTRAST(Performed 01/15/2015) * CREATININE BLOOD - POCT (IP) [facility](Performed 01/15/2015) * CT CHEST ABDOMEN PELVIS W CONT(Performed 01/12/2015) * VAS ARTERIAL ANKLE ARM INDEX(Performed 01/12/2015) * PATHOLOGY/GENETICS HISTORICAL-ONBASE(Performed 01/10/2015) * PATHOLOGY/GENETICS HISTORICAL-ONBASE(Performed 01/10/2015) * CYTOGENETICS CANCER PANEL(Performed 01/08/2015) Performed for Waldenstrom's disease [ICD-9-CM] * ACTH 60 MINUTES(Performed 01/08/2015) * ACTH 30 MINUTES(Performed 01/08/2015) * CHROMOSOME ANALYSIS PANEL(Performed 01/08/2015) * CYTOGENETICS CANCER PANEL(Performed 01/08/2015) * PATHOLOGY TISSUE(Performed 01/08/2015) * HOLD SPECIMEN DNA TISSUE(Performed 01/08/2015) * LAB MISCELLANEOUS TEST 3(Performed 01/08/2015) * FLOW CYTOMETRY PANEL(Performed 01/08/2015) * LAB MISCELLANEOUS TEST 2(Performed 01/08/2015) * GM1 IGG/IGM ANTIBODY PANEL(Performed 01/08/2015) * PROTEIN ELECTROPHORESIS WO INTERP BLOOD(Performed 01/08/2015) * IMMUNOFIXATION BLOOD(Performed 01/08/2015) * CRYOGLOBULIN QUALITATIVE(Performed 01/08/2015) * LAB MISC TEST(Performed 01/08/2015) * KAPPA/LAMBDA LITE CHAIN FREE PANEL(Performed 01/08/2015) * CD4 (ABSOLUTE T4)(Performed 01/08/2015) * ACTH CORTISOL BASELINE(Performed 01/08/2015) * T4 FREE(Performed 01/08/2015) * FERRITIN(Performed 01/08/2015) * UGCX-0-NYCEYPINDAPJS BLOOD(Performed 01/08/2015) * TRANSFERRIN(Performed 01/08/2015) * IRON BLOOD(Performed 01/08/2015) * FOLATE(Performed 01/08/2015) * VITAMIN B12(Performed 01/08/2015) * TROPONIN I(Performed 01/08/2015) * TSH(Performed 01/08/2015) * HEPATITIS B SURFACE ANTIGEN W RFLX CONFIRMATION(Performed 01/08/2015) * HEPATITIS B CORE ANTIBODY TOTAL(Performed 01/08/2015) * IGA BLOOD(Performed 01/08/2015) * IGM BLOOD(Performed 01/08/2015) * IGG BLOOD(Performed 01/08/2015) * HAPTOGLOBIN(Performed 01/08/2015) * LDH BLOOD(Performed 01/08/2015) * COMPREHENSIVE METABOLIC PANEL(Performed 01/08/2015) * CBC W AUTO DIFFERENTIAL(Performed 01/08/2015) * RETIC COUNT(Performed 01/08/2015) * CBC W AUTO DIFFERENTIAL(Performed 01/08/2015) * PATHOLOGY/GENETICS HISTORICAL-ONBASE(Performed 01/08/2015) Results * ACT LR - POCT ([facility]) (01/04/2025 5:49 PM AGENCY SERVICE COORDINATOR) Only the most recent of2 resultswithin the time period is included. 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 Prox RCA lesion is 50% stenosed. Negative by iFR (0.99) LVEDP: 6 mmHg. Lcx and LAD without obstructive disease but very tortuous vessels. Reason for Procedure 74 year old male with past medical history persistent a fib (on Eliquis, flecainide), PAD, HTN, CAD presents for [facility] with Dr. Ward. Patient has [...] METABOLIC PANEL (CALCIUM TOTAL) (01/04/2025 11:36 AM AGENCY SERVICE COORDINATOR) Only the most recent of10 resultswithin the time period is included. BUN 25 7 - 26 mg/dL 01/04/2025 12:48 PM [facility] Creatinine 1.43(H) 0.71 - 1.16 mg/dL 01/04/2025 12:48 PM [facility] Sodium 140 136 - 145 mmol/L 01/04/2025 12:48 PM [facility] Potassium 4.6(H) 3.5 - 4.5 mmol/L 01/04/2025 12:48 PM [facility] Chloride 104 98 - 107 mmol/L 01/04/2025 12:48 PM [facility] CO2 27 22 - 29 mmol/L 01/04/2025 12:48 PM [facility] Glucose 88 70 - 99 mg/dL 01/04/2025 12:48 PM [facility] Calcium 9.4 8.4 - 10.2 mg/dL 01/04/2025 12:48 PM [facility] Anion Gap 9 6 - 16 01/04/2025 12:48 PM [facility] BUN/Creatinine Ratio 17 7 - 23 01/04/2025 12:48 PM [facility] Osmolality Calculated 294 275 - 295 mOsm/kg 01/04/2025 12:48 PM [facility] eGFR by CKD-EPI 51(L) >=90 mL/min/1.7 3 m2 01/04/2025 12:48 PM [facility] Blood BLOOD SPECIMEN / Unknown Venipuncture / Unknown 01/04/2025 11:36 AM AGENCY SERVICE COORDINATOR 01/04/2025 12:35 PM AGENCY SERVICE COORDINATOR Courtney KENNY LAB - CHEMISTRY KIT CASTELL[facility] Organization Address City/State/ZIP Co de Phone Number [facility] [address] [place] [address], [facility] [phone] * (ABNORMAL) CBC W/O DIFFERENTIAL (12/30/2024 11:58 AM AGENCY SERVICE COORDINATOR) Only the most recent of4 resultswithin the time period is included. White Blood Cell Count 4.8 3.8 - [...] Comment: REPORT COMMENT: FASTING:NO Test Performed at: [facility] [employer] [address] GEORGE SAAVEDRA MD 12/30/2024 11:5 8 AM AGENCY SERVICE COORDINATOR 12/30/2024 12:00 PM AGENCY SERVICE COORDINATOR Courtney KENNY LAB - HEMATOLOGY ORD ERABLES Performing Organization Address [facility] de Phone Number [address] [address] * EKG 12-LEAD (12/27/2024 10:07 AM AGENCY SERVICE COORDINATOR) Only the most recent of24 resultswithin the time period is included. Courtney KENNY ECG ORDERABLES Performing Organization Address [facility] Co de Phone Number MARYPAUL MABEL * WV DESTRUCT BENIGN LESION, 1-14 (09/19/2024 12:17 PM CDT) Narrative Rosie Quigley MD - 09/19/2024 12:17 PM CDT Lolly Leonard MD 09/19/2024 12:17 PM Diagnosis and treatment options discussed, addressing the benefit and risks of each. Pt wish to proceed with cryotherapy. Liquid Nitrogen was applied to lesion for 7-10s each. Number of cycles: 1. Wound care reviewed. Lolly Leonard MD [facility] Dermatology Resident Rosie Quigley MD PROCEDURE/MINOR SURG ICAL ORDERABLES * WV DESTROY PREMALIG LESION, 1ST LESION, WV DESTROY PREMALIG LESION, 2-14 (09/19/2024 12:15 PM CDT) Narrative Rosie Quigley MD - 09/19/2024 12:15 PM CDT Lolly Leonard MD 09/19/2024 12:16 PM Diagnosis and treatment options discussed, addressing the benefit and risks of each. Pt wish to proceed with cryotherapy. Liquid Nitrogen was applied to lesion(s) for 7-10s each. Number of cycles: 1. Wound care reviewed. Lolly Leonard MD [facility] Dermatology Resident Rosie Quigley MD PROCEDURE/MINOR SURG ICAL ORDERABLES * PFT OXYGEN DESATURATION STUDY (05/06/2024 1:02 PM CDT) Impressions Abel Hatfield MD - 05/06/2024 1:02 PM CDT [facility] Department of Pulmonary, Critical Care, and Sleep Medicine EXERCISE OXYGEN PRESCRIPTION Interpretation: The patient had a saturation of 99 % on room air at the beginning of the test. After walking for 4 minutes on the treadmill with a speed of 1 MPH, followed by another 4 minutes with a speed of 1.5 MPH, saturation was 95% requiring no additional oxygen support. The patient stopped due to end of test protocol. Impression: No supplemental oxygen was required for the amount of exertion performed during this study. Ra Otero MD Pulmonary and Critical Care Fellow Division of Pulmonary, Critical Care, & Sleep Medicine [facility] [employer] Attestation: I have reviewed the test data and agree with Dr. Otero's interpretation. Abel Hatfield MD 05/10/2024 Narrative Abel Hatfield MD - 05/06/2024 1:02 PM CDT Ra Otero MD 05/07/2024 3:53 PM Jamie Arboleda MD PFT ORDERABLES * COMPLETE PFT W/WO BRONCHODILATOR (05/06/2024 1:02 PM CDT) Impressions Abel Hatfield MD - 05/06/2024 1:02 PM CDT [facility] DEPARTMENT OF PULMONARY, CRITICAL CARE, AND SLEEP MEDICINE PULMONARY FUNCTION TEST Please see technologist's comments mentioned in the report. INTERPRETATION: SPIROMETRY: FVC: normal FEV1: moderately decreased(z-score -2.5 to -4.0). FEV1/FVC ratio is decreased. BRONCHODILATOR RESPONSE: There is a positive response to bronchodilators FLOW-VOLUME LOOPS: small flow-volume loops with scooping of expiratory loops LUNG VOLUMES: Lung volumes by body plethysmography show moderate hyperinflation based on TLC(135-150% pred) and severe air-trapping based on RV(z-score > 4.0). DLCO: Unadjusted for Hb and COHb is moderately decreased(z-score -2.5 to -4.0). DLCO: Adjusted for Hb and COHb is: not performed AIRWAY RESISTANCE: The airway resistance is increased and the specific conductance is decreased ARTERIAL BLOOD GAS ANALYSIS: not performed IMPRESSION: 1. Moderate obstructive ventilatory limitation. There is moderate hyperinflation and severe air-trapping. 2. Moderately decreased unadjusted DLCO 3. There is a positive bronchodilator response 4. When compared to the previous study on 11/03/19, there is significant decrease of post-bronchodilator FEV1 by 470ml and increase of post-bronchodilator TLC by 1670 ml. There is no significant change of FVC or DLCO. Ra Otero MD PGY4 Pulmonary & Critical Care Fellow Division of Pulmonary, Critical Care and Sleep Medicine [facility] Attestation: I have reviewed the test data and agree with Dr. Otero's interpretation. Abel Hatfield MD 05/10/2024 Narrative Abel Hatfield MD - 05/06/2024 1:02 PM CDT Ra Otero MD 05/07/2024 3:54 PM Jamie Arboleda MD RESPIRATORY THERAPY ORDERABLES * WV DESTR MALIG TRUNK,EXTREM 0.6-1 CM, WV DESTR MALIG TRUNK,EXTREM 1.1-2 CM (04/19/2024 2:55 PM CDT) Narrative Rosie Quigley MD - 04/19/2024 2:55 PM CDT Shane Roque MD 04/19/2024 3:34 PM PROCEDURE: Electrodessication and Curettage Patient was educated on purpose, risks/benefits and potential adverse effects, 100% chance of scar, statistics of cure, small chance of infection and recurrence. Informed consent obtained. A time out was performed immediately prior to the procedure: patient and provider/staff verbally confirmed correct patient, correct site, and correct procedure. ATTENDING PHYSICIAN: Aislinn Quigley MD SURGEON: Shane Roque MD Tumor Type: SQUAMOUS CELL CARCINOMA IN SITU, PRESENT AT THE BASE OF THE SPECIMEN Location: right forearm Derm-Path SIZE OF LESION PRE-OP: 0.8cm The surgical site was prepped with alcohol. Anesthesia: Lidocaine 1% with epinephrine locally injected. Curettage was performed with 4 mm curette over entire lesion in three different directional axis' Electrodessication was then performed to entire wound bed. SIZE AFTER FIRST PASS: 1.0cm The above curettage and electrodessication technique was repeated twice more over the lesion. DRESSING: Plain Vaseline petroleum jelly and Band-Aid. Wound care instructions were given to the patient both orally and in writing. Patient tolerated the procedure well. Shane Roque MD [facility] Dermatology Resident PROCEDURE: Electrodessication and Curettage Patient was educated on purpose, risks/benefits and potential adverse effects, 100% chance of scar, statistics of cure, small chance of infection and recurrence. Informed consent obtained. A time out was performed immediately prior to the procedure: patient and provider/staff verbally confirmed correct patient, correct site, and correct procedure. ATTENDING PHYSICIAN: Aislinn Quigley MD SURGEON: Shane Roque MD DIAGNOSIS: BASAL CELL CARCINOMA, SUPERFICIAL MULTIFOCAL LOCATION: right clavicle SIZE OF LESION PRE-OP: 0.9cm The surgical site was prepped with alcohol. Anesthesia: Lidocaine 1% with epinephrine locally injected. Curettage was performed with 4 mm curette over entire lesion in three different directional axis' Electrodessication was then performed to entire wound bed. SIZE AFTER FIRST PASS: 1.1cm The above curettage and electrodessication technique was repeated twice more over the lesion. DRESSING: Plain Vaseline petroleum jelly and Band-Aid. Wound care instructions were given to the patient both orally and in writing. Patient tolerated the procedure well. Shane Roque MD [facility] Dermatology Resident Rosie Quigley MD PROCEDURE/MINOR SURG ICAL ORDERABLES * WV TANGNTL BX SKIN EA SEP ADDL, WV TANGNTL BX SKIN SINGLE LES (03/10/2024 12:23 PM CDT) Rosie Green MD - 03/10/2024 12:23 PM CDT Rosie Quigley MD 03/10/2024 12:23 PM Risks, benefits and alternatives to shave biopsy were discussed with the patient. Verbal consent was obtained. Encounter Diagnoses Name Primary? Actinic keratosis Yes Seborrheic keratoses Lentigines Multiple benign nevi Seborrheic keratosis, inflamed Hx of nonmelanoma skin cancer Neoplasm of uncertain behavior Location: R clavicle and R forearm Skin prep: Alcohol Anesthesia: 1% lidocaine with epinephrine Hemostasis: Aluminum chloride Dressing and wound care discussed. Specimen(s) placed in a patient labeled container and sent to [facility] Dermatopathology. Patient agrees to phone call for results and message if not available. Rosie Quigley MD Rosie Quigley MD PROCEDURE/MINOR SURG ICAL ORDERABLES * WV DESTRUCT BENIGN LESION, 1-14 (03/10/2024 12:22 PM CDT) Rosie Green MD - 03/10/2024 12:22 PM CDT Rosie Quigley MD 03/10/2024 12:23 PM Diagnosis and treatment options discussed. Cryotherapy (Liquid Nitrogen) to one lesions on L neck for 8-10 seconds each. Number of cycles: 1. Wound care reviewed. Rosie Quigley MD PROCEDURE/MINOR SURG ICAL ORDERABLES * WV DESTROY PREMALIG LESION, 2-14, WV DESTROY PREMALIG LESION, 1ST LESION (03/10/2024 12:22 PM CDT) Rosie Green MD - 03/10/2024 12:22 PM CDT Rosie Quigley MD 03/10/2024 12:22 PM Diagnosis and treatment options discussed. Cryotherapy (Liquid Nitrogen) to left ear, right ear, left cheek, 2 under left eye, left forehead, 3 left upper cheek, and left lower lip for 5-7 seconds each. Number of cycles: 1. Wound care reviewed. Rosie Quigley MD PROCEDURE/MINOR SURG ICAL ORDERABLES * DERMATOPATHOLOGY (03/10/2024 3:33 AM CDT) Only the most recent of9 resultswithin the time period is included. Case Report Dermatopathology Report Case: [id number] Authorizing Provider: Rosie Quigley MD Collected: 03/10/2024 03:33 AM Ordering Location: [facility] - Received: 03/10/2024 01:06 PM Dermatology Pathologist: Shannon Contreras MD Specimens: A) - Skin, right forearm B) - Skin, right clavicle 1:34 PM CDT DERMATOPATHOLOGY LABORATORY Final Diagnosis Specimen A. SKIN, right forearm: SQUAMOUS CELL CARCINOMA IN SITU, PRESENT AT THE BASE OF THE SPECIMEN (D04.61) (see microscopic description and comment) Specimen B. SKIN, right clavicle: BASAL CELL CARCINOMA, SUPERFICIAL MULTIFOCAL (C44.612) 1:34 PM CDT DERMATOPATHOLOGY LABORATORY Clinical History A: SCCIS vs BCC B: BCC vs SCC vs ISK 1:34 PM CDT DERMATOPATHOLOGY LABORATORY Gross Description Specimen A: Received is one formalin filled container labeled with the patient's name and designated right forearm. The specimen consists of a shave biopsy measuring 9x8x1, 10x6x1 mm. Jar 0. Specimen B: Received is one formalin filled container labeled with the patient's name and designated right clavicle. The specimen consists of a shave biopsy measuring 10x6x1 mm. Jar 0. 1:34 PM CDT DERMATOPATHOLOGY LABORATORY Microscopic Description Specimen A. SKIN, right forearm: The epidermis shows parakeratosis, full thickness disorderly maturation of keratinocytes, mitoses at different levels, and dyskeratotic cells. The lesion extends to the base of the biopsy. COMMENT: An invasive squamous cell carcinoma cannot be ruled out. Specimen B. SKIN, right clavicle: Attached to the undersurface of the epidermis, there are small aggregates of basaloid cells with a high nuclear to cytoplasmic ratio and peripheral palisading. 04/12/202 4 1:34 PM CDT DERMATOPATHOLOGY LABORATORY Disclaimer An external and internal positive and negative controls are appropriate for the histochemical, immunohistochemical and immunofluorescence stain(s) in this case (if any), except where stated explicitly. The performance characteristics of the stain(s) cited in this report were developed and its performance characteristic determined by the Dermatopathology Laboratory at [facility], directed by Dr. Dorian Ledbetter. These tests need not be, and therefore are not, approved by the [place] Food and Drug Administration. The tests are used for clinical purposes. Billing Codes Specimen Charges Stain Charges 93932 64278 1 1 4 1:34 PM CDT DERMATOPATHOLOGY LABORATORY Embedded Images 4 1:34 PM CDT DERMATOPATHOLOGY LABORATORY Pathology/Cytology TISSUE SPECIMEN FROM SKIN / Unknown 03/10/2024 3:33 AM CDT 03/10/2024 1:06 PM CDT Miscellaneous samples (specimen) TISSUE SPECIMEN FROM SKIN / Unknown 03/10/2024 3:33 AM CDT 03/10/2024 1:06 PM CDT Rosie Quigley MD LAB - PATHOLOGY/CYTO LOGY ORDERABLES DERMATOPATHOLOGY LABORATORY [facility] - Department of Dermatology [address], [address] [phone] * PATHOLOGY TISSUE (07/20/2023 1:40 PM CDT) Only the most recent of9 resultswithin the time period is included. Case Report Surgical Pathology Report Case: [id number] Authorizing Provider: Irene Rojas MD Collected: 07/20/2023 01:40 PM Ordering Location: [facility] ENDOSCOPY Received: 07/20/2023 02:55 PM Pathologist: Ana Marquez MD Specimen: Colon, 60cm from stoma biopsy 07/21/2023 5:49 PM CDT [facility] PATHOLOGY LAB Final Diagnosis Large intestine, 60 cm from stoma, biopsy (A): - Hyperplastic polyp 07/21/2023 5:49 PM CDT [facility] PATHOLOGY LAB Microscopic Description and Comment Microscopic examination including multiple deeper levels substantiates the final diagnosis. 07/21/2023 5:49 PM CDT [facility] Clinical History The patient is a 72-year-old man who presented for screening colonoscopy. Prior history of rectal cancer.Operative procedure/findings: Colonoscopy-one 5 mm polyp at 60 cm proximal to the stoma noted 07/21/2023 5:49 PM CDT [facility] Gross Description The requisition and specimen(s) are identified with the patient's name Xavier Sosa. Received in formalin, specimen A , are 2 pink-castro tissues, 0.4 x 0.3 x 0.2 cm and 0.4 x 0.2 x 0.2 cm, submitted in toto in cassette A1. DF 07/21/2023 5:49 PM CDT [facility] Pathologist Location at [facility] 07/21/2023 5:49 PM CDT [facility] PATHOLOGY LAB Disclaimer The performance characteristics of all immunohistochemical and indirect immunofluorescence stains (if any) cited in this report were determined by the Histopathology Laboratory of [facility]. Some of these tests were developed by our own laboratory and have not been cleared or approved by the [place] Food and Drug Administration. The FDA does not require this test to go through premarket FDA review. These tests are used for clinical purposes. They should not be regarded as investigational or for research. This laboratory is certified under the Clinical Laboratory Improvement Amendments (CLIA) as qualified to perform high complexity clinical laboratory testing. This case has been personally reviewed and interpreted by the attending (teaching) pathologist. 07/21/2023 5:49 PM CDT [facility] PATHOLOGY LAB Embedded Images 07/21/2023 5:49 PM CDT [facility] PATHOLOGY LAB Biopsy, NOS COLON PART / Unknown 07/20/2023 1:40 PM CDT 07/20/2023 2:55 PM CDT Comment:Pre-op diagnosis: Screen for colon cancer [Z12.11] Irene Rojas MD LAB - PATHOLOGY/CY TOLOGY ORDERABLES [facility] PATHOLOGY LAB [address] [place], [place] [id number] [place] [address] * ENDOSCOPY, COLON, SCREENING (07/20/2023 1:14 PM [...] entire procedure. Procedure Code(s): --- Professional --- 81681, Colonoscopy, flexible; with biopsy, single or multiple Diagnosis Code(s): --- Professional --- Z85.048, Personal history of other malignant neoplasm of rectum, rectosigmoid junction, and anus D12.6, Benign neoplasm of colon, unspecified CPT copyright 2021 [employer]. All rights reserved. The codes documented in this report are preliminary and upon regional marketing director review may be revised to meet current compliance requirements. Irene Rojas, 07/20/2023 1:58:28 PM Note Initiated On: 07/20/2023 1:14 PM Number of Addenda: [id number] [place] [address] PROVATION 07/20/2023 1:14 PM CDT Irene Rojas MD GI PROCEDURE ORDER [facility] PROVATION * PROC EKG IN CLINIC (03/27/2023 1:37 PM CDT) Only the most recent of9 resultswithin the time period is included. Narrative Clifford Nolan MD - 03/27/2023 1:37 PM CDT Clifford Nolan MD 03/27/2023 1:38 PM ECG personally reviewed: Sinus eduard in mid 50s Clifford Nolan MD ECG ORDERABLES * WV TANGNTL BX SKIN SINGLE LES (03/02/2023 4:46 PM CDT) Narrative Rosie Quigley MD - 03/02/2023 4:46 PM CDT Nettie Zaidi MD 03/02/2023 4:46 PM Risks, benefits and alternatives to shave biopsy were discussed with the patient. Verbal consent obtained. Location: L neck Ddx: Rule out SCC Skin prep: Alcohol Anesthesia: 1% lidocaine with epinephrine Hemostasis: Aluminum Chloride Dressing and wound care discussed. Patient agrees to phone call for results and message if not available. Nettie Zaidi MD Dermatology Resident, PGY-4 [facility], Department of Dermatology Rosie Quigley MD PROCEDURE/MINOR SURG ICAL ORDERABLES * [place] DSTRJ ALL PRMLG 15 OR MORE (03/02/2023 4:45 PM CDT) Narrative Rosie Quigley MD - 03/02/2023 4:45 PM CDT Nettie Zaidi MD 03/02/2023 4:45 PM Diagnosis and treatment options discussed for AK. Verbal consent obtained. Cryotherapy (Liquid Nitrogen) performed to 18 lesions (cheeks, ears, b/l neck, b/l dorsal hands and arms) for 5-7 seconds each. Number of cycles: 1. Wound care reviewed and post-cryotherapy handout given. Nettie Zaidi MD Dermatology Resident, PGY-4 [facility], Department of Dermatology Rosie Quigley MD PROCEDURE/MINOR SURG ICAL ORDERABLES * BLOOD GAS COOX ART POC NOTIFICATION (02/27/2023 10:42 AM CDT) Comment Notification Label Only - See Separate Report 02/27/2023 12:02 PM CDT [facility] Other MISCELLANEOUS SAMPLES / Unknown Collection / Unknown 02/27/2023 10:42 AM CDT 02/27/2023 10:51 AM CDT Jamie Arboleda MD LAB - BLOOD GASES OR DERABLES Performing Organization Address [facility]/State/[facility] Co de Phone Number [facility] [address] [address], [facility] [phone] * HSAT High Altitude Simulation Test [facility] (02/27/2023 10:31 AM CDT) Impressions Jeffery Vega MD - 02/27/2023 10:31 AM CDT [facility] DEPARTMENT OF PULMONARY, CRITICAL CARE, AND SLEEP MEDICINE High Altitude Simulation Test Xavier Sosa 02/28/2023 Interpretation: The high altitude simulation test was performed on 14.8% FiO2 for a total of 12 minutes. On the João scale, the patient reported dyspnea of 0 on completion of the test. Arterial blood gas analysis during the test showed a PaO2=46. IMPRESSION: 1. Positive High Altitude Simulation Test. The patient does require supplemental oxygen for high altitude travel. Nishant Mayo MD I have personally reviewed the pulmonary function test data and made adjustment to the interpretation where necessary. Jeffery Vega MD 03/05/2023 Jeffery Altman MD - 02/27/2023 10:31 AM CDT Nishant Mayo MD 02/28/2023 5:06 PM Procedure Note Nishant Mayo MD - 02/27/2023 10:31 AM CDT Images from the original note were not included. Jamie Arboleda MD PFT ORDERABLES * PFT Oxygen Desaturation Study [facility] (02/27/2023 10:31 AM CDT) Impressions Jeffery Vega MD - 02/27/2023 10:31 AM CDT [facility] DEPARTMENT OF PULMONARY, CRITICAL CARE, AND SLEEP MEDICINE OXYGEN TITRATION STUDY Xavier Sosa 02/28/2023 INTERPRETATION The test was performed with free walking at room air. The patient was able to complete 8 minutes with lowest SpO2 of 94%. IMPRESSION 1. At the above level of activity the patient's oxygen saturation remained 93 % and above on room air. The patient did not have a significant oxygen desaturation while walking for a total of 8 minutes. Nishant Mayo MD ( Fellow) Division of Pulmonary, Critical Care, & Sleep Medicine [facility] 02/28/2023 5:15 PM I have personally reviewed the pulmonary function test data and made adjustment to the interpretation where necessary. Jeffery Vega MD 03/05/2023 Jeffery Altman MD - 02/27/2023 10:31 AM CDT Nishant Mayo MD 02/28/2023 5:14 PM Procedure Note Nishant Mayo MD - 02/27/2023 10:31 AM CDT Images from the original note were not included. Jamie Arboleda MD PFT ORDERABLES * [place] DESTROY PREMALIG LESION, 2-14, [place] DESTROY PREMALIG LESION, 1ST LESION (03/10/2022 12:08 PM CDT) Narrative Rosie Quigley MD - 03/10/2022 12:08 PM CDT Leann Burris MD 03/10/2022 12:08 PM Diagnosis and treatment options discussed. Cryotherapy (Liquid Nitrogen) to 8 AK ( L presybeterian x2, L preauricular x2, L antihelix x2, L cheek, R pretibial region (8 total)) x 6-7 seconds each. Number of cycles: 1. Wound care reviewed. Leann Burris MD [facility] Dermatology Resident, PGY-3 Rosie Quigley MD PROCEDURE/MINOR SURG ICAL ORDERABLES * (ABNORMAL) CBC W AUTO DIFFERENTIAL (10/17/2021 10:11 AM [facility] Only the most recent of229 resultswithin the time period is included. WBC 3.9 3.5 - 10.5 10 3/uL 10/17/2021 10:45 AM [facility] RBC 4.01(L) 4.30 - 5.70 10 6/uL 10/17/2021 10:45 AM [facility] Hemoglobin 12.7 12.0 - 17.6 g/dL 10/17/2021 10:45 AM [facility] Hematocrit 37.5 35.2 - 51.7 % 10/17/2021 10:45 AM [facility] MCV 93.5 80.7 - 98.3 fL 10/17/2021 10:45 AM [facility] MCH 31.7 26.7 - 34.0 pg 10/17/2021 10:45 AM [facility] MCHC 33.9 30.8 - 35.9 g/dL 10/17/2021 10:45 AM [facility] Platelet Count 149(L) 150 - 400 10 3/uL 10/17/2021 10:45 AM [facility] RDW-SD 41.1 36.0 - 50.0 fL 10/17/2021 10:45 AM [facility] RDW-CV 12.0 11.2 - 14.8 % 10/17/2021 10:45 AM [facility] MPV 8.8(L) 9.4 - 12.9 fL 10/17/2021 10:45 AM [facility] nRBC Absolute 0.00 0 10 3/uL 10/17/2021 10:45 AM [facility] nRBC Auto 0.0 0 /100 WBC 10/17/2021 10:45 AM [facility] Neutrophils % 51.0 35.0 - 70.0 % 10/17/2021 10:45 AM [facility] Lymphocytes % 31.9 20.0 - 43.0 % 10/17/2021 10:45 AM [facility] Monocytes % 12.7 5.0 - 13.0 % 10/17/2021 10:45 AM [facility] Eosinophils % 3.6 0.0 - 6.0 % 10/17/2021 10:45 AM [facility] Basophil % 0.5 0.0 - 2.0 % 10/17/2021 10:45 AM [facility] Neutrophils Absolute 2.0 1.6 - 7.0 10 3/uL 10/17/2021 10:45 AM [facility] Lymphocyte Absolute 1.2 1.1 - 3.9 10 3/uL 10/17/2021 10:45 AM [facility] Monocytes Absolute 0.49 0.26 - 1.07 10 3/uL 10/17/2021 10:45 AM [facility] Eosinophils Absolute 0.14 0.00 - 0.47 10 3/uL 10/17/2021 10:45 AM [facility] Basophils Absolute 0.02 0.00 - 0.08 10 3/uL 10/17/2021 10:45 AM [facility] Immature Granulocytes % 0.3 0.0 - 1.0 % 10/17/2021 10:45 AM [facility] Immature Granulocytes Absolute 0.01 10/17/2021 10:45 AM [facility] Blood BLOOD SPECIMEN / Unknown Venipuncture / Unknown 10/17/2021 10:11 AM AGENCY SERVICE COORDINATOR 10/17/2021 10:30 AM [facility] Ina Boyer MD LAB - HEMATOLOGY O RDERABLES [facility] [employer] [facility] [address] [place] [address], [facility] [phone] * (ABNORMAL) COMPREHENSIVE METABOLIC PANEL (10/17/2021 10:11 AM [facility] Only the most recent of139 resultswithin the time period is included. BUN 18 7 - 26 mg/dL 10/17/2021 10:54 AM [facility] Creatinine 1.03 0.71 - 1.16 mg/dL 10/17/2021 10:54 AM [facility] Sodium 142 136 - 145 mmol/L 10/17/2021 10:54 AM [facility] Potassium 4.1 3.5 - 4.5 mmol/L 10/17/2021 10:54 AM [facility] Chloride 103 98 - 107 mmol/L 10/17/2021 10:54 AM [facility] CO2 28 22 - 29 mmol/L 10/17/2021 10:54 AM [facility] Glucose 77 70 - 115 mg/dL 10/17/2021 10:54 AM [facility] Calcium 9.3 8.4 - 10.2 mg/dL 10/17/2021 10:54 AM [facility] Protein Total 6.6 6.0 - 8.3 g/dL 10/17/2021 10:54 AM [facility] Albumin 3.8 3.4 - 5.0 g/dL 10/17/2021 10:54 AM [facility] Bilirubin Total 0.6 0.2 - 1.2 mg/dL 10/17/2021 10:54 AM [facility] Alkaline Phosphatase 93 40 - 150 U/L 10/17/2021 10:54 AM [facility] ALT 9 5 - 55 U/L 10/17/2021 10:54 AM [facility] AST 16 5 - 34 U/L 10/17/2021 10:54 AM [facility] Anion Gap 15 8 - 18 10/17/2021 10:54 AM [facility] BUN/Creatinine Ratio 17 7 - 23 10/17/2021 10:54 AM [facility] Osmolality Calculated 295 270 - 300 mOsm/kg 10/17/2021 10:54 AM [facility] Albumin/Globulin Ratio 1.4 1.1 - 2.3 10/17/2021 10:54 AM [facility] eGFR by CKD-EPI 72(L) >=90 mL/min/1.7 3 m2 10/17/2021 10:54 AM [facility] Blood BLOOD SPECIMEN / Unknown Venipuncture / Unknown 10/17/2021 10:11 AM AGENCY SERVICE COORDINATOR 10/17/2021 10:31 AM AGENCY SERVICE COORDINATOR Ina Boyer MD LAB - CHEMISTRY OR DERABLES Performing Organization Address City/[facility]/ZIP Co de Phone Number [address] [address], [facility] [phone] * IGM BLOOD (10/17/2021 10:11 AM AGENCY SERVICE COORDINATOR) Only the most recent of86 resultswithin the time period is included. IgM 117 37 - 286 mg/dL 10/17/2021 11:01 AM [facility] Blood BLOOD SPECIMEN / Unknown Venipuncture / Unknown 10/17/2021 10:11 AM AGENCY SERVICE COORDINATOR 10/17/2021 10:24 AM AGENCY SERVICE COORDINATOR Ina Boyer MD LAB - CHEMISTRY OR DERABLES Performing Organization Address [facility] Co de Phone Number [address] [address], [facility] [phone] * (ABNORMAL) IGG BLOOD (10/17/2021 10:11 AM AGENCY SERVICE COORDINATOR) Only the most recent of36 resultswithin the time period is included. IgG 703(L) 767-1,590 mg/dL 10/17/2021 11:01 AM [facility] Blood BLOOD SPECIMEN / Unknown Venipuncture / Unknown 10/17/2021 10:11 AM AGENCY SERVICE COORDINATOR 10/17/2021 10:24 AM AGENCY SERVICE COORDINATOR Ina Boyer MD LAB - CHEMISTRY OR DERABLES [address] [address], [facility] [phone] * [place] CHMSRG MOHS MG TQ H/N/H/F/G 1ST STAG 5 BLOC (10/09/2021 8:32 PM AGENCY SERVICE COORDINATOR) Rashard Pickering MD - 10/09/2021 8:32 PM AGENCY SERVICE COORDINATOR Rashard Mejia MD 10/09/2021 8:36 PM Mohs Micrographic Surgery Operative Note Procedure: Mohs micrographic surgery Date of service: 10/03/2021 Location: left dorsal hand Preop diagnosis: Squamous cell carcinoma, well differentiated Postop diagnosis: Same Mohs AUC score: 8 Number of stages: 1 Preop size: 1.1x0.8 cm Postop size: 1.6x1.4 cm Depth of final defect: adipose Previous dermpath accession #: [id number] Repair type: purse string Mohs accession #: [id number] Surgeon and Pathologist: Rashard Mejia MD served as both surgeon and pathologist. No other physician was involved in the cancer removal or pathology interpretation. Assistants: Verduzco Indications for Mohs Surgery Removal of the patient's tumor is complicated by the following clinical features: Clinical area critical for tissue conservation (Area H: central face, eyelids, eyebrows, nose, lips, chin, ear, periauricular, presybeterian, genitalia, hands, feet, ankles, nail units and areola), large tumor size, poorly-defined clinical tumor borders. Based on my medical judgement, Mohs surgery is the most appropriate treatment for this cancer compared to other treatments. I discussed alternative treatments to Mohs surgery and specifically discussed the risks and benefits of curettage, excision with permanent sections, and foregoing treatment. The rationale for Mohs was explained to the patient and consent was obtained. The risks, benefits and alternatives to therapy were discussed in detail. Specifically, the risks of infection, scarring, bleeding, prolonged wound healing, incomplete removal, allergy to anesthesia, nerve injury and recurrence were addressed. Prior to the procedure, the treatment site was clearly identified and confirmed by the patient. All components of [place] Protocol/PAUSE Rule completed. STAGE I: The patient was placed on the operating table. The cancer was identified and outlined. The entire surgical field was prepped with hibiclens. The surgical site was anesthetized using Lidocaine 1% with epinephrine 1:100,000 buffered with sodium bicarbonate 8.4% in a 1:10 ratio.The area of clinically apparent tumor was debulked with a 4 mm curette. The layer of tissue was then surgically excised using a #15 blade and was then transferred onto a specimen sheet maintaining the orientation of the specimen. Hemostasis was obtained using monopolar electrodesiccation. The wound site was then covered with a dressing while the tissue samples were processed for examination. The specimen was oriented, mapped and divided. Each section was then inked and processed in the Mohs lab using the Mohs protocol and submitted for frozen section. The histopathologic sections were reviewed by the surgeon in conjunction with the reference map. Total blocks: 1 Total slides: 3 Frozen sections were examined by the surgeon. No additional tumor was identified. No additional histologic findings appreciated. Cell morphology: n/a Pathological pattern: n/a Depth of invasion: n/a Scar tissue: Not Present Perineural invasion: Not Present Inflammation obscuring possible tumor presence: Not Present [facility] CLIA # [id number] Mohs physical laboratory assistant: Joanna Irby MD REPAIR: Purse string (intermediate) Primary Surgeon: Rashard Mejia MD Management Manager: Dax Repair Size: 1.6 cm Sutures: 4-0 monocryl The patient was returned to the operating table. The defect was identified. The entire surgical field was prepped with hibiclens. The surgical site was anesthetized using Lidocaine 1% with epinephrine 1:100,000 buffered with sodium bicarbonate 8.4% in a 1:10 ratio.The wound was cleaned and hemostasis was achieved with monopolar electrodesiccation. The wound was undermined and debeveled. space was closed with a buried vertical mattress suture. A running subcuticular suture was placed along the circumference of the wound, and cinched tightly to decrease the wound diameter. The defect, which was smaller in size following repair, was filled with petrolatum and left to heal fully by secondary intent. Patient was informed that additional refinement of the resulting surgical scar may be used as a second stage of this reconstruction. Rashard Mejia MD Caseworker Intake Rashard Mejia MD PROCEDURE/MINOR SURG ICAL ORDERABLES * [place] CHMSRG MOHS MG TQ H/N/H/F/G EA ADDL STAG, [place] CHMSRG MOHS MG TQ H/N/H/F/G 1ST STAG 5 BLOC (09/20/2021 3:04 PM CDT) Narrative Rashard Mejia MD - 09/20/2021 3:04 PM CDT Rashard Mejia MD 09/26/2021 10:45 AM Mohs Micrographic Surgery Operative Note Procedure: Mohs micrographic surgery Date of service: 09/20/2021 Location: mohs surgery Preop diagnosis: Squamous cell carcinoma, well differentiated Postop diagnosis: Same Mohs AUC score: 8 Number of stages: 2 Preop size: 0.4x0.9 cm Postop size: 1.3x1.2 cm Depth of final defect: cartilage Previous dermpath accession #: [id number] Repair type: second intent Mohs accession #: [id number] Surgeon and Pathologist: Rashard Mejia MD served as both surgeon and pathologist. No other physician was involved in the cancer removal or pathology interpretation. Assistants: Dax Indications for Mohs Surgery Removal of the patient's tumor is complicated by the following clinical features: Clinical area critical for tissue conservation (Area H: central face, eyelids, eyebrows, nose, lips, chin, ear, periauricular, presybeterian, genitalia, hands, feet, ankles, nail units and areola). Based on my medical judgement, Mohs surgery is the most appropriate treatment for this cancer compared to other treatments. I discussed alternative treatments to Mohs surgery and specifically discussed the risks and benefits of curettage, excision with permanent sections, and foregoing treatment. The rationale for Mohs was explained to the patient and consent was obtained. The risks, benefits and alternatives to therapy were discussed in detail. Specifically, the risks of infection, scarring, bleeding, prolonged wound healing, incomplete removal, allergy to anesthesia, nerve injury and recurrence were addressed. Prior to the procedure, the treatment site was clearly identified and confirmed by the patient. All components of [place] Protocol/PAUSE Rule completed. STAGE I: The patient was placed on the operating table. The cancer was identified and outlined. The entire surgical field was prepped with iodine. The surgical site was anesthetized using Lidocaine 1% with epinephrine 1:100,000 buffered with sodium bicarbonate 8.4% in a 1:10 ratio.The area of clinically apparent tumor was debulked with a 2 mm curette. The layer of tissue was then surgically excised using a #15 blade and was then transferred onto a specimen sheet maintaining the orientation of the specimen. Hemostasis was obtained using monopolar electrodesiccation. The wound site was then covered with a dressing while the tissue samples were processed for examination. The specimen was oriented, mapped and divided. Each section was then inked and processed in the Mohs lab using the Mohs protocol and submitted for frozen section. The histopathologic sections were reviewed by the surgeon in conjunction with the reference map. Total blocks: 1 Total slides: 3 Frozen sections were examined by the surgeon and revealed residual tumor. Tumor was indicated in red on the reference map. Cell morphology: tumor nodules of atypical squamous cells in the epidermis and dermis with abundant keratinization Pathological pattern: Squamous cell carcinoma, well differentiated Depth of invasion: Dermis Scar tissue: Not Present Perineural invasion: Not Present Inflammation obscuring possible tumor presence: Not Present STAGE II: The patient was prepped in the same fashion as the first stage. Using a similar technique to that described above, a thin layer of tissue was removed from all areas where tumor was visible on the previous stage. The tissue was again oriented, mapped, dyed, and processed as above. Histopathologic sections were reviewed in conjunction with the reference map. Total blocks: 1 Total slides: 2 Frozen sections were examined by the surgeon and revealed: No additional tumor. Histology: No malignant cells seen in the sections examined. No additional histologic findings appreciated. [facility] CLIA # [id number] Mohs Tray Delivery Aide: Joanna Irby MD REPAIR: Secondary Intention with cartilage fenestration The patient is status-post Mohs micrographic surgery. The surgical site was examined with attention to normal anatomic and functional relationships. After consideration and discussion of multiple options with the patient, it was determined that healing by secondary intention would offer the best chance for preservation/shinto of all normal anatomic and functional relationships. A 2 mm punch was used to fenestrate exposed cartilage and facilitate wound granulation. The patient verbalized understanding and agreed with this plan. It is also understood that should second intention healing be sub-optimal, additional procedures such as scar revision, steroid injection or dermabrasion may be recommended. The open wound was cleaned and a thick layer of vaseline was applied. A pressure dressing consisting of non-adherent gauze, gauze, and hypafix was applied. Wound care was discussed with the patient both orally and in writing. The patient stated understanding and agreement with the course of care. He will follow up with his next Mohs surgery. Dr. Mejia performed the entire surgery, and documentation used to initiate this operative report. I entered the information in our Epic DocFlowsheet with the information provided by Dr. Mejia on her handwritten, paper format, surgical worksheet, which was then used to initiate the create of this note. Dr. Mejia then reviewed and edited the note as needed to complete the note. Mercedes Verduzco LPN Rashard Mejia MD PROCEDURE/MINOR SURG ICAL ORDERABLES * VAS ARTERIAL ANKLE ARM INDEX (09/19/2021 11:08 AM CDT) Only the most recent of2 resultswithin the time period is included. Anatomical Region Laterality Modality Ankle / Foot, Upper Extremity In travascular Ultrasound 09/19/2021 10:4 0 AM CDT Narrative 09/23/2021 10:07 AM CDT Procedure Note Ludwin Barr MD - 09/23/2021 Clifford Nolan MD VASCULAR LAB ORDERAB LES * CARDIAC EKG ORDER (09/11/2021) Only the most recent of4 resultswithin the time period is included. Narrative 09/11/2021 Ordered by an unspecified provider. Scanned Document CARDIAC SERVICES ORD ERABLES * [place] TANGNTL BX SKIN EA SEP ADDL, [place] TANGNTL BX SKIN SINGLE LES (08/26/2021 4:41 PM CDT) Narrative Rosie Quigley MD - 08/26/2021 4:41 PM CDT Bruce Valle MD 08/26/2021 4:43 PM Risks, benefits and alternatives to shave biopsy were discussed with the patient. Verbal consent was obtained. Encounter Diagnoses Name Primary? Neoplasm of uncertain behavior of skin Yes Actinic keratosis Lentigines Actinic skin damage History of nonmelanoma skin cancer Location: L antihelix, R dorsal hand Skin prep: Alcohol Anesthesia: 1% lidocaine with epinephrine Hemostasis: Aluminum chloride Dressing and wound care discussed. Specimen(s) placed in a patient labeled container and sent to [facility] Dermatopathology. Patient agrees to phone call for results and message if not available. Bruce Valle MD Rosie Quigley MD PROCEDURE/MINOR SURG ICAL ORDERABLES * [place] DESTROY PREMALIG LESION, 2-14, [place] DESTROY PREMALIG LESION, 1ST LESION (08/26/2021 4:41 PM CDT) Narrative Rosie Quigley MD - 08/26/2021 4:41 PM CDT Bruce Valle MD 08/26/2021 4:41 PM Diagnosis and treatment options discussed. Cryotherapy (Liquid Nitrogen) to 5 lesions for 4-6 seconds each. Number of cycles: 1. Wound care reviewed. Bruce Valle MD [facility] Dermatology Resident PGY4 Rosie Quigley MD PROCEDURE/MINOR SURG ICAL ORDERABLES * ECHO STRESS W DOBUTAMINE (08/07/2021 11:50 AM CDT) Anatomical Region Laterality Modality Chest Echo 08/07/2021 10:0 2 AM CDT Narrative Procedure Note Danita Joseph MD - 08/07/2021 Clifford Nolan MD ECHOCARDIOGRAPHY RAD IANT * PFT OXYGEN DESATURATION STUDY (03/05/2021 11:23 AM CDT) Impressions Abel Hatfield MD - 03/05/2021 11:23 AM CDT [facility] DEPARTMENT OF PULMONARY, CRITICAL CARE, AND SLEEP MEDICINE OXYGEN TITRATION STUDY Xavier Uday Sosa 03/05/2021 INTERPRETATION The test was performed on the treadmill at a speed of 2 mph at room air. The patient was able to complete 4 minutes with lowest SpO2 of 94%. Then the treadmill speed was increased to 2 mph, the patient's SpO2 remained 95% and above throughout the test. IMPRESSION 1. At the above level of activity the patient's oxygen saturation remained 95 % and above on room air. The patient did not have a significant oxygen desaturation while walking at 1-2 mph for a total of 8 minutes. Molly Jasmine MD Pulmonary & Critical Care Fellow Division of Pulmonary, Critical Care and Sleep Medicine [facility] Pager: [phone] I have reviewed the test data and agree with Dr. Jasmine's findings. Abel Hatfield MD 03/10/2021 Narrative Abel Hatfield MD - 03/05/2021 11:23 AM CDT Molly Jasmine MD 03/05/2021 5:17 PM Procedure Note Molly Jasmine MD - 03/05/2021 11:23 AM CDT Images from the original note were not included. Jamie Arboleda MD PFT ORDERABLES * HIGH ALTITUDE SIMULATION TEST (HAST) STUDY (03/05/2021 11:23 AM CDT) Impressions Abel Hatfield MD - 03/05/2021 11:23 AM CDT [facility] DEPARTMENT OF PULMONARY, CRITICAL CARE, AND SLEEP MEDICINE High Altitude Simulation Test Xavier Sosa 03/05/2021 Interpretation: The high altitude simulation test was performed on 15% FiO2 for a total of 20 minutes. On the João scale, the patient reported dyspnea of 0 on completion of the test. Arterial blood gas analysis during the test showed a PaO2=47. IMPRESSION: 1. Positive High Altitude Simulation Test. The patient does require supplemental oxygen for high altitude travel. Molly Jasmine MD Pulmonary & Critical Care Fellow Division of Pulmonary, Critical Care and Sleep Medicine [facility] Pager: [phone] I have reviewed the test data and agree with Dr. Jasmine's findings. Abel Hatfield MD 03/10/2021 Narrative Abel Hatfield MD - 03/05/2021 11:23 AM CDT Molly Jasmine MD 03/05/2021 5:18 PM pulm Procedure Note Molly Jasmine MD - 03/05/2021 11:23 AM CDT Images from the original note were not included. pulm Jamie Arboleda MD PFT ORDERABLES * VITAMIN D 25-HYDROXY (10/19/2020 10:52 AM AGENCY SERVICE COORDINATOR) Only the most recent of10 resultswithin the time period is included. Vitamin D, 25 Hydroxy 46.0 See comment: ng/mL 10/19/2020 11:57 AM AGENCY SERVICE COORDINATOR [facility] Comment: The recommendations for 25-Hydroxy Vitamin D clinical decision points are as follows: Deficient: <20.0 ng/mL Insufficient: 20.0 - 29.9 ng/mL Sufficient: > or =30.0 ng/mL If the 25-Hydroxy Vitamin D results are inconsitent with clinical evidence, it is recommended that follow-up testing using a method such as LC/MS/MS be performed to confirm the result. Reference: The Endocrine Society Clinical Practice Guidelines. 2011 Blood BLOOD SPECIMEN / Unknown Venipuncture / Unknown 10/19/2020 10:52 AM AGENCY SERVICE COORDINATOR 10/19/2020 11:01 AM AGENCY SERVICE COORDINATOR Leona Tay DERRICK ENGINEER-KILN PLACER LAB - CHEMIS TRY ORDERABLES [address] [phone], [facility] [phone] * CYTOMEGALOVIRUS (CMV) QUANTITATIVE PLASMA (07/23/2020 10:57 AM CDT) Only the most recent of10 resultswithin the time period is included. [facility] CMV Quant by PCR, Interp Not Detected Not Detected 07/25/2020 5:12 PM CDT [facility] Blood BLOOD SPECIMEN / Unknown Lab Venipuncture / Unknown 07/23/2020 10:57 AM CDT 07/23/2020 11:33 AM CDT Narrative [facility] - 07/25/2020 5:12 PM CDT The CMV DNA analysis utilized real-time PCR, and is reported as Not Detected, Detected (<50 IU/mL) [or Detected (<1.70 log IU/mL], 50 156,000,000 IU/mL [or 1.70 to 8.19 log IU/mL], or >156,000,000 IU/mL [>8.19 log IU/mL]. The analytic sensitivity (LOD) of the assay is 31.20 IU/mL [1.49 log IU/mL] (100% of samples with this CMV/DNA level were detected). Linear range of the assay is 50 156,000,000 IU/ml [or 1.70 to 8.19 log IU/mL]. The detection/quantitation of CMV DNA in plasma is based on the isolation of CMV DNA followed by real-time PCR in the presence of reference standard DNA. The standard ensures that DNA was isolated, and that no general significant inhibitors of the real-time PCR process were present. Absolute CMV values or breakpoints for symptomatic disease have not been established and appear to be different between patient populations and laboratories. Therefore, it is important to monitor patients and to follow increases and/or decreases in the level of CMV in multiple blood specimens. The analysis was performed using an US FDA approved test methodology (Lacey RealTime CMV). Ina Boyer MD LAB - CHEMISTRY OR DERABLES [facility] [address] [place] [address], [facility] [phone] * ENDOSCOPY, COLON, SCREENING (07/20/2020 9:08 AM CDT) Report Endoscopy POC _ Patient Name: Xavier Sosa Procedure Date: 07/20/2020 9:08 AM Date of : 1950 Admit Type: Outpatient Age: 69 Gender: Male Ethnicity: Not or Race: White Attending MD: Irene Rojas MD _ Procedure: Colonoscopy Indications: High risk colon cancer surveillance: Personal history of rectal cancer Providers: Irene Rojas MD (Doctor), Yandy Etienne, Health Science Instructor Referring MD: Billy Jalloh (Referring MD) Complications: No immediate complications. _ Procedure: Pre-Anesthesia Assessment: - Using IV propofol under the supervision of a C ENGINEER was determined to be medically necessary for this procedure based on review of the patient's medical history, medications, and prior anesthesia history. After I obtained informed consent, the scope was passed under direct vision. Throughout the procedure, the patient's blood pressure, pulse, and oxygen saturations were monitored continuously. The Colonoscope was introduced through the anus and advanced to the cecum, identified by appendiceal orifice and ileocecal valve. The colonoscopy was performed without difficulty. The patient tolerated the procedure well. The quality of the bowel preparation was good. Impression: - The entire examined colon is normal. - The examination was otherwise normal. - No specimens collected. Findings: The colon (entire examined portion) appeared normal. Estimated blood loss: none. The exam was otherwise without abnormality. _ Recommendation: - Discharge patient to home (ambulatory). - Resume regular diet indefinitely. - Continue present medications. - Return to my office in 3 months. Procedure Code(s): --- Professional --- 97923, Colonoscopy, flexible; diagnostic, including collection of specimen(s) by brushing or washing, when performed (separate procedure) --- Technical --- 31341, Colonoscopy, flexible; diagnostic, including collection of specimen(s) by brushing or washing, when performed (separate procedure) Diagnosis Code(s): --- Professional --- Z85.048, Personal history of other malignant neoplasm of rectum, rectosigmoid junction, and anus --- Technical --- Z85.048, Personal history of other malignant neoplasm of rectum, rectosigmoid junction, and anus CPT copyright 2017 [employer]. All rights reserved. The codes documented in this report are preliminary and upon regional marketing director review may be revised to meet current compliance requirements. Irene Rojas Irene Rojas MD 07/20/2020 9:49:56 AM This report has been signed electronically. Number of Addenda: 0 Note Initiated On: 07/20/2020 9:08 AM [facility] 07/20/2020 9:08 AM CDT Irene Rojas MD GI PROCEDURE ORDER [facility] ENDOS[facility] * SARS-COV-2 (COVID-19) IN HOUSE (07/17/2020 10:30 AM CDT) COVID-19 PCR Not detected Not detected, Invalid 07/18/2020 10:04 PM CDT [facility] Microbiology SPECIMEN FROM NASOPHARYNGEAL STRUCTURE / Unknown Collection / Unknown 07/17/2020 10:30 AM CDT 07/18/2020 6:02 AM CDT Narrative [facility] - 07/18/2020 10:04 PM CDT This Real Time RT-PCR assay was developed and its performance characteristics determined by [facility]. This test has been authorized by the Food and Drug administration (FDA)under an Emergency Use Authorization (EUA). This test has been validated in accordance with the FDA's guidance document Policy for Diagnostic Testing in Laboratories Certified to perform High Complexity Testing under CLIA prior to Emergency Use Authorization for Coronavirus Disease-2019 during the Public Health Emergency issued on January 28, 2020. FDA independent review of this validation is pending. This test is only authorized for the duration of time the declaration that circumstances exist justifying the authorization of emergency use of in vitro diagnostic tests for detection of SARS-CoV-2 virus and/or diagnosis of COVID-19 infection under section 564(b)(1) of the Act, 21 U.S.C 360bbb-3 (b)(1), unless the authorization is terminated or revoked sooner. 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 PostOp Size: 2.0x1.1 cm. [facility] Level of Defect: fat Procedure: The patient was placed supine on the operating table. The cancer was identified, outlined with a marker, and verified by the patient. The entire surgical field was prepped with iodine. The surgical site was anesthetized using Lidocaine 1% with epinephrine 1:100,000 buffered with sodium bicarbonate 8.4% in a 1:10 ratio. The area of clinically apparent tumor was debulked with 2mm curette. The layer of tissue was then surgically excised using a #15 blade and was then transferred onto a specimen sheet maintaining the orientation of the specimen. Hemostasis was obtained using monopolar electrodessication. The wound site was then covered with a dressing while the tissue samples were processed for examination. The excised tissue was transported to the [facility] histology laboratory maintaining the tissue orientation. The tissue specimen was relaxed so that the entire surgical margin was in a a single horizontal plane for sectioning and inked for precise mapping. A precise reference map was drawn to reflect the sectioning of the specimen, colored inking of the margins, and orientation on the patient. The tissue was processed using horizontal sectioning ofthe base and continuous peripheral margins. The histopathologic sections were reviewed in conjunction with the reference map. Total blocks: 1 Total slides: 2 No additional tumor was identified on microscopic examination, therefore Mohs surgery was complete. Actinic keratosis persisting at the margin was removed during repair. Reconstruction: Complex Closure Primary Surgeon : Jackie Management Manager Surgeon : Dax The patient was taken to the operative suite and placed supine on the operating room table. The defect was identified. Appropriate markings were made with a marking pen to plan the repair. The area was infiltrated with Lidocaine 1% with epinephrine 1:100,000 buffered with sodium bicarbonate 8.4% in a 1:10 ratio and prepped with iodine and draped with sterile towels. The wound was debeveled and undermined widely. Cones were excised within relaxed skin tension lines on both sides of the defect. Hemostasis was obtained using monopolar dessication. The wound edges were then approximated additional buried sutures were placed in a similar fashion where needed. Percutaneous simple running sutures were carefully placed for maximum eversion and meticulous approximation. The wound was cleansed with saline and ointment was applied along the wound surface. A sterile pressure dressing was applied. Wound care instructions were given verbally and in writing. The patient left the operating suite in stable condition. Dr. Mejia performed the entire surgery, and documentation used to initiate this operative report. I entered the information in our LitRes DocFlowsheet with the information provided by Dr. Mejia on her handwritten, paper format, surgical worksheet, which was then used to initiate the create of this note. Dr. Mejia then reviewed and edited the note as needed to complete the note. Mercedes Verduzco LPN Rashard Mejia MD PROCEDURE/MINOR SURG ICAL ORDERABLES * URINALYSIS REFLEX TO MICROSCOPIC NO CULTURE (02/09/2020 1:16 PM CDT) Only the most recent of12 resultswithin the time period is included. Color UA Yellow Straw, Yellow, Colorless 02/09/2020 2:52 PM CDT [facility] Clarity UA Clear Clear, Slt Cloudy 02/09/2020 2:52 PM CDT [facility] Specific [place] UA 1.008 1.005 - 1.030 02/09/2020 2:52 PM CDT [facility] pH UA 6.0 5.0 - 8.0 pH 02/09/2020 2:52 PM T [facility] Protein UA Negative Negative mg/dL 02/09/2020 2:52 PM CDT [facility] Glucose UA Negative Negative mg/dL 02/09/2020 2:52 PM T [facility] Ketone UA Negative Negative mg/dL 02/09/2020 2:52 PM CDT [facility] Bilirubin UA Negative Negative mg/dL 02/09/2020 2:52 PM CDT [facility] Blood UA Negative Negative 02/09/2020 2:52 PM T [facility] Nitrite UA Negative Negative 02/09/2020 2:52 PM T [facility] Leukocyte Esterase Negative Negative 02/09/2020 2:52 PM T [facility] Urobilinogen UA Negative Negative mg/dL 02/09/2020 2:52 PM T [facility] RBC UA 0-2 None Seen, 0-2, 3-5 /HPF 02/09/2020 2:52 PM T [facility] WBC UA 0-5 None Seen, 0-5 /HPF 02/09/2020 2:52 PM [facility] Squamous Epithelial Cells UA None Seen None Seen, 0-2 /HPF 02/09/2020 2:52 PM T [facility] Urine URINE SPECIMEN OBTAINED BY CLEAN CATCH PROCEDURE / Unknown Collection / Unknown 02/09/2020 1:16 PM CDT 02/09/2020 2:34 PM CDT Narrative [facility] - 02/09/2020 2:52 PM CDT Leona Tay DERRICK ENGINEER-KILN PLACER LAB - URINAL YSIS ORDERABLES [address] [phone] * [place] DESTR MALIG TRUNK,EXTREM 1.1-2 CM (01/02/2020 3:11 PM AGENCY SERVICE COORDINATOR) Narrative Rosie Quigley MD - 01/02/2020 3:11 PM AGENCY SERVICE COORDINATOR Bruce Valle MD 01/02/2020 3:52 PM PROCEDURE: Cryotherapy and Curettage Patient was educated on purpose, risks/benefits and potential adverse effects, 100% chance of scar, statistics of cure, small chance of infection and recurrence. Informed consent obtained. A time out was performed immediately prior to the procedure: patient and provider/staff verbally confirmed correct patient, correct site, and correct procedure. ATTENDING PHYSICIAN: Dr. Quigley SURGEON: Bruce Valle MD DIAGNOSIS: [facility] LOCATION: upper back SIZE OF LESION PRE-OP: 8 mm The surgical site was prepped with alcohol. Anesthesia: Lidocaine 1% with epinephrine locally injected. Curettage was performed with 4 mm curette over entire lesion in three different directional axis' Cryotherapy was then performed to entire wound bed x 15 seconds. SIZE AFTER FIRST PASS: 1.2 cm DRESSING: Plain Vaseline petroleum jelly and Band-Aid. Wound care instructions were given to the patient both orally and in writing. Patient tolerated the procedure well. Bruce Valle MD [facility] Dermatology Resident PGY-II Rosie Quigley MD PROCEDURE/MINOR SURG ICAL ORDERABLES * COMPLETE PFT W/WO BRONCHODILATOR (11/03/2019 12:23 PM AGENCY SERVICE COORDINATOR) Impressions Jeffery Vega MD - 11/03/2019 12:23 PM AGENCY SERVICE COORDINATOR [facility] DEPARTMENT OF PULMONARY, CRITICAL CARE, AND SLEEP MEDICINE PULMONARY FUNCTION TEST Please see technologist's comments mentioned in the report. INTERPRETATION: SPIROMETRY: FVC: normal FEV1: decreased FEV1/FVC ratio is decreased. BRONCHODILATOR RESPONSE: There is a significant response to bronchodilators FLOW-VOLUME LOOPS: Scooping of the expiratory limbs LUNG VOLUMES: Lung volumes by body plethysmography: Total lung capacity is increased DLCO: Unadjusted for Hb and COHb is decreased AIRWAY RESISTANCE: The airway resistance is increased and the specific conductance is decreased but return to normal post-bronchodilator ARTERIAL BLOOD GAS ANALYSIS: Not performed IMPRESSION: 1. Moderate Obstructive Ventilatory Limitation 2. Mild decreased uncorrected DLCO. 3. Mild hyperinflation and severe air trapping. 4. There is a significant bronchodilator response 5. Compared to prior study on 05/05/2019, there is a 1.4 L decrease in FVC, 320 ml decrease in FEV1, and 0.3 ml/min/mmHg decrease in DLCO. An Ho, MD Pulmonary & Critical Care Fellow Division of Pulmonary, Critical Care and Sleep Medicine [facility] Pager: [phone] I have personally reviewed the pulmonary function test data and made adjustment to the interpretation where necessary. Jeffery Vega MD 11/08/2019 Narrative Jeffery Vega MD - 11/03/2019 12:23 PM AGENCY SERVICE COORDINATOR Susanne Sharma MD 11/04/2019 5:57 PM Procedure Note Susanne Sharma MD - 11/03/2019 12:23 PM CST Images from the original note were not included. Jamie Arboleda MD RESPIRATORY THERAPY ORDERABLES * WV TANGNTL BX SKIN EA SEP ADDL, [place] TANGNTL BX SKIN SINGLE LES (09/19/2019 4:29 PM CDT) Narrative Rosie Quigley MD - 09/19/2019 4:29 PM CDT Mike Hackett MD 09/19/2019 4:30 PM Risks, benefits and alternatives to shave biopsy were discussed with the patient, including risks of infection, scar (100% chance), the possibility of non-diagnostic reading, and the potential need for further testing or treatment. Patient expressed understanding and verbal consent was obtained. Location: upper back, R helix Skin prep: Alcohol Anesthesia: 1% lidocaine with epinephrine Hemostasis: Aluminum Chloride Dressing and wound care discussed. Patient agrees to phone call for results and message if not available. Mike Hackett [facility] Dermatology Resident PGY-3 Rosie Quigley MD PROCEDURE/MINOR SURG ICAL ORDERABLES * WV DESTROY PREMALIG LESION, 2-14, [place] DESTROY PREMALIG LESION, 1ST LESION (09/19/2019 4:29 PM CDT) Narrative Rosie Quigley MD - 09/19/2019 4:29 PM CDT Mike Hackett MD 09/19/2019 4:29 PM Diagnosis and treatment options discussed for AKs. Verbal consent obtained. Cryotherapy (Liquid Nitrogen) performed to 5 lesions on cheeks and nose for 6-7 seconds each. Number of cycles: 1. Wound care reviewed and post-cryotherapy handout given. Mike Hackett MD [facility] Dermatology Resident, PGY-3 Rosie Quigley MD PROCEDURE/MINOR SURG ICAL ORDERABLES * CULTURE WOUND+GRAM STAIN (07/06/2019 3:43 PM CDT) [facility] Culture Rare normal skin susy TANIYA 07/09/2019 11:59 AM CDT [facility] Gram Stain No organisms seen 019 11:59 AM CDT [facility] Gram Stain Moderate Polymorphonuclear cells 07/09/2019 11:59 AM CDT [facility] Microbiology SPECIMEN OBTAINED BY INCISIONAL BIOPSY / Unknown Collection / Unknown 07/06/2019 3:43 PM CDT 07/06/2019 3:49 PM CDT Jessica Martinez MD LAB - MICROBIOLOGY ORDERABLES Performing Organization Address City/[facility]/ZIP Co de Phone Number [facility] [address] [phone] * PATHOLOGY/CYTOLOGY REPORT ORDER (06/20/2019 3:52 PM CDT) Narrative 06/20/2019 3:52 PM CDT Ordered by an unspecified provider. Scanned Document LAB - PATHOLOGY/CYTO LOGY ORDERABLES * PHOSPHORUS BLOOD (06/15/2019 6:20 AM CDT) Only the most recent of40 resultswithin the time period is included. [facility] Phosphorus 3.9 2.3 - 4.7 mg/dL 06/15/2019 7:01 AM CDT [facility] Blood BLOOD SPECIMEN / Unknown 06/15/2019 6:20 AM CDT 06/15/2019 6:28 AM CDT Elda Fleming MD LAB - CHEMISTRY KIT CASTELLON [facility] [address] [place] [address], [facility] [phone] * MAGNESIUM BLOOD (06/15/2019 6:20 AM CDT) Only the most recent of44 resultswithin the time period is included. [facility] Magnesium 2.0 1.6 - 2.6 mg/dL 06/15/2019 7:01 AM CDT [facility] Blood BLOOD SPECIMEN / Unknown 06/15/2019 6:20 AM CDT 06/15/2019 6:28 AM CDT Elda Fleming MD LAB - CHEMISTRY KIT CASTELLON Performing Organization Address [facility]/ZIP Co de Phone Number [address] [phone] * CREATININE BODY FLUID ([facility] ONLY) (06/13/2019 9:09 AM CDT) [facility] Creatinine Fluid 1.0 Not Established For Fluids mg/dL 06/13/2019 9:51 AM CDT [facility] Comment: The reference range and other method performance specifications have not been established for this fluid. The test result must be integrated into the clinical context for interpretation. Fluid PERITONEAL FLUID / Unknown Collection / Unknown 06/13/2019 9:09 AM CDT 06/13/2019 9:15 AM CDT Andrea Jason MD LAB - BODY FLUID PRAMOD RODRIGUEZ Performing Organization Address [facility] Co de Phone Number [address] [phone] * TYPE + SCREEN PANEL (06/13/2019 12:44 AM CDT) Only the most recent of8 resultswithin the time period is included. [facility] Antibody Screen NEG 9 1:50 AM CDT [facility] ABO Rh O POS 06/13/2019 1:50 AM CDT [facility] Blood Bank BLOOD SPECIMEN / Unknown Venipuncture / Unknown 06/13/2019 12:44 AM CDT 06/13/2019 1:05 AM CDT Jose Coyle DO LAB - BLOOD BANK ORD ERABLES Performing Organization Address City/[facility]/ZIP Co de Phone Number [facility] [address] [place] [address] * GLUCOSE - POINT OF CARE (06/12/2019 8:20 AM CDT) Only the most recent of6 resultswithin the time period is included. Pathologist [facility] Glucose WB/POC 88 70 - 115 mg/dL 06/12/2019 8:27 AM CDT [facility] Specimen Type Arterial/C apillary 06/12/2019 8:27 AM CDT [facility] Blood BLOOD SPECIMEN / Unknown 06/12/2019 8:20 AM CDT 06/12/2019 8:27 AM CDT Narrative [facility] - 06/12/2019 8:27 AM CDT MARKETING OPERATIONS ASSOCIATE: CHANTAL REYNOSO Irene Rojas MD LAB - POINT OF CAR E ORDERABLES [facility] [address] [phone] * TRANSFUSE RED BLOOD CELL LEUKOREDUCED UNIT(S) (06/11/2019 3:03 PM CDT) Jose Coyle DO NURSING - BLOOD PROD TRANSFUSION * (ABNORMAL) BLOOD GASES ART COMPLETE [facility] OR (06/10/2019 9:51 PM CDT) Only the most recent of5 resultswithin the time period is included. Pathologist [facility] pH Arterial 7.34(L) 7.35 - 7.45 06/10/2019 9:56 PM [facility] pCO2 Arterial 47(H) 35 - 45 mmHg 06/10/2019 9:56 PM [facility] pO2 Arterial 110(H) 71 - 95 mmHg 06/10/2019 9:56 PM [facility] HCO3 Arterial 25.0 22.0 - 26.0 mmol/L 06/10/2019 9:56 PM [facility] TCO2 Arterial 26.4 25.0 - 29.0 mmol/L 06/10/2019 9:56 PM [facility] Base Excess Arterial -0.9 -2.0 - 2.0 mmol/L 06/10/2019 9:56 PM T [facility] Hemoglobin Arterial 8.7(L) 13.5 - 17.5 g/dL 06/10/2019 9:56 PM [facility] Oxyhemoglobin Arterial 95.8 95.0 - 100.0 % 06/10/2019 9:56 PM [facility] Carboxyhemoglobin 0.2 0.0 - 3.0 % 06/10/2019 9:56 PM [facility] Methemoglobin 0.3 0.0 - 2.0 % 06/10/2019 9:56 PM [facility] FI O2 Arterial 29.0 % 06/10/2019 9:56 PM [facility] Ionized Calcium Whole Blood 1.31 mmol/L 06/10/2019 9:56 PM [facility] Adjusted Ionized Calcium 1.28 1.19 - 1.34 mmol/L 06/10/2019 9:56 PM [facility] Sodium Whole Blood 135 135 - 145 mmol/L 06/10/2019 9:56 PM [facility] Potassium Whole Blood 5.1 3.5 - 5.5 mmol/L 06/10/2019 9:56 PM [facility] Chloride Whole Blood 105 101 - 111 mmol/L 06/10/2019 9:56 PM [facility] Glucose Whole Blood 225(H) 70 - 110 mg/dL 06/10/2019 9:56 PM [facility] Lactic Acid Whole Blood 2.1 0.5 - 3.4 mmol/L 06/10/2019 9:56 PM [facility] Blood ARTERIAL BLOOD SPECIMEN / Unknown Venipuncture / Unknown 06/10/2019 9:51 PM CDT 06/10/2019 9:54 PM CDT Bryson Cuellar MD LAB - BLOOD GASES OR DERABLES [facility] [address] [place] [address] * XR CHEST 1VW PORTABLE (06/10/2019 6:34 PM CDT) Only the most recent of4 resultswithin the time period is included. Anatomical Region Laterality Modality Chest Radiographic Saray ging 06/10/2019 9:53 PM CDT Impressions 06/11/2019 10:26 AM CDT IMPRESSION: 1.No acute pulmonary process is seen. Report drafted by Buck Lee M.D. (resident) Dr. CANDELARIA Oleary have personally reviewed and interpreted this examination/study. This report was electronically signed by CANDELARIA DOWLING on 06/11/2019 10:26 AM . Narrative 06/11/2019 10:26 AM CDT EXAMINATION: XR CHEST 1VW PORTABLE HISTORY: left IJ central line placed intra-op COMPARISON: chest radiograph on 06/01/2018 FINDINGS: A left IJ CVC tip is in the left innominate vein. No focal consolidation, pleural effusion, or pneumothorax is seen. The cardiomediastinal silhouette is normal. No acute fractures are seen. Procedure Note Candelaria Dowling, DO - 06/11/2019 EXAMINATION: XR CHEST 1VW PORTABLE HISTORY: left IJ central line placed intra-op COMPARISON: chest radiograph on 06/01/2018 FINDINGS: A left IJ CVC tip is in the left innominate vein. No focal consolidation, pleural effusion, or pneumothorax is seen. The cardiomediastinal silhouette is normal. No acute fractures are seen. IMPRESSION: 1.No acute pulmonary process is seen. Report drafted by Buck Lee M.D. (resident) Dr. CANDELARIA Oleary have personally reviewed and interpreted this examination/study. This report was electronically signed by CANDELARIA DOWLING on 06/11/2019 10:26 AM . Allyson Ricks MD DIAGNOSTIC IMAGING O RDERABLES * (ABNORMAL) BLOOD GASES ARTERIAL (06/10/2019 10:59 AM CDT) Only the most recent of2 resultswithin the time period is included. pH Arterial 7.30(L) 7.35 - 7.45 06/10/2019 11:01 AM T [facility] pCO2 Arterial 44 35 - 45 mmHg 06/10/2019 11:01 AM T [facility] pO2 Arterial 234(H) 71 - 95 mmHg 06/10/2019 11:01 AM [facility] HCO3 Arterial 21.5(L) 22.0 - 26.0 mmol/L 06/10/2019 11:01 AM [facility] TCO2 Arterial 22.8(L) 25.0 - 29.0 mmol/L 06/10/2019 11:01 AM [facility] Base Excess Arterial -4.7(L) -2.0 - 2.0 mmol/L 06/10/2019 11:01 AM [facility] Hemoglobin Arterial 10.4(L) 13.5 - 17.5 g/dL 06/10/2019 11:01 AM [facility] Oxyhemoglobin Arterial 97.8 95.0 - 100.0 % 06/10/2019 11:01 AM [facility] Carboxyhemoglobin 0.2 0.0 - 3.0 % 06/10/2019 11:01 AM [facility] Methemoglobin 0.2 0.0 - 2.0 % 06/10/2019 11:01 AM [facility] FI O2 Arterial 50.0 % 06/10/2019 11:01 AM [facility] Blood, arterial ARTERIAL BLOOD SPECIMEN / Unknown Arterial Puncture / Unknown 06/10/2019 10:59 AM CDT 06/10/2019 10:59 AM CDT Allyson Ricks MD LAB - BLOOD GASES OR DERABLES [address] [phone] * PREPARE (CROSSMATCH) RBC UNIT(S), 1 Units (06/10/2019 6:24 AM CDT) Only the most recent of3 resultswithin the time period is included. Unit Description N/A [facility] Blood Bank BLOOD SPECIMEN / Unknown 06/10/2019 6:24 AM CDT 06/10/2019 6:24 AM CDT Jose Coyle DO LAB - BLOOD BANK ORD ERABLES [facility] [address] [place] [address] * ENDOSCOPY, PROCTOSIGMOID (05/20/2019 8:00 AM CDT) Report Endoscopy POC Endoscopy Department Report _ Patient Name: Xavier Sosa Procedure Date: 05/20/2019 8:00 AM Date of : 1950 Classification: Outpatient Gender: Male Ethnicity: Not or Race: White _ Providers: Irene Zuluaga MD: Procedure: Flexible Sigmoidoscopy Indications: Personal history of malignant rectal neoplasm Medications: Propofol per Anesthesia, None Description of Procedure: After obtaining informed consent, the endoscope was passed under direct vision. Throughout the procedure, the patient's blood pressure, pulse, and oxygen saturations were monitored continuously. The Endoscope was introduced through the anus and advanced to the rectosigmoid junction. The [id number]-[id number] was introduced through the and advanced to. The flexible sigmoidoscopy was accomplished without difficulty. The patient tolerated the procedure well. The patient tolerated the procedure well. The quality of the bowel preparation was good. Findings: The digital rectal exam findings include palpable rectal mass. Distal rectal cancer, encompassing 80% of circumference from left lateral-posterio r-right lateral position at level of anorectal ring. Estimated Blood Loss: Estimated blood loss: none. Complications: No immediate complications. Impression: - Palpable rectal mass found on digital rectal exam. - Distal rectal cancer, encompassing 80% of circumference from left lateral-posterior -right lateral position at level of anorectal ring - No specimens collected. Recommendation: - Discharge patient to home (ambulatory). - Return to my office in 3 weeks. Attending Participation: I personally performed the entire procedure. Procedure Code(s): --- Professional --- 90765, Sigmoidoscopy, flexible; diagnostic, including collection of specimen(s) by brushing or washing, when performed (separate procedure) Diagnosis Code(s): --- Professional --- Z85.048, Personal history of other malignant neoplasm of rectum, rectosigmoid junction, and anus CPT copyright 2016 [employer]. All rights reserved. The codes documented in this report are preliminary and upon regional marketing director review may be revised to meet current compliance requirements. _ Irene Rojas, 05/20/2019 8:22:36 AM Note Initiated On: 05/20/2019 8:00 AM Number of Addenda: 0 [facility] [address] [facility] [place] [address] [facility] 05/20/2019 8:00 AM CDT Andrea Jason MD GI PROCEDURE ORDERAB LES [facility] * MRI PELVIS WWO CONTRAST (05/14/2019 9:56 AM CDT) Only the most recent of2 resultswithin the time period is included. Anatomical Region Laterality Modality Pelvis Magnetic Resonan ce 05/16/2019 11:3 1 AM CDT Impressions 05/16/2019 2:12 PM CDT IMPRESSION: 1. Slightly decreased wall thickening, hyperenhancement, and luminal narrowing of the distal rectum, representing response to therapy. No definite extension of tumor through the muscularis propria. Unchanged mesorectal fat stranding. 2. No pelvic lymphadenopathy. Report dictated by Austin Renteria MD (advertising vice president). I, Dr. ANGEL RICKS M.D. have personally reviewed and interpreted this examination/study. This report was electronically signed by ANGEL RICKS M.D. on 05/16/2019 2:12 PM . Narrative 05/16/2019 2:12 PM CDT EXAM: Magnetic resonance imaging (MRI) of the pelvis with and without contrast HISTORY: Distal rectal cancer status post chemotherapy and radiation completed on 03/31/2019 TECHNIQUE: MRI of the pelvis was performed prior to and following the uneventful administration of 20 mL Multihance according to a rectal protocol. COMPARISON: Comparison is made with a pelvis MRI from 01/22/2019. FINDINGS: There is slightly decreased wall thickening and enhancement of the distal rectum representing the patient's known rectal cancer. Luminal narrowing has slightly decreased. The enhancing wall of the rectum measures up to 1.9 cm in maximal dimension at the left aspect of the rectum (series 15, image 59), previously 2.1 cm. Associated diffusion restriction has decreased. There is no extension of tumor through the muscularis propria into the mesorectal fat. Although, fat stranding/hyperemia in the mesorectal fat persists. A 6 mm T1 hyperintense hemorrhagic lesion at the anal verge (series 12, image 78) may be related to radiation therapy. A similar lesion is noted in the right aspect of the prostate gland. No abnormal lymph nodes are identified. The bladder is partially distended with fluid and appears normal. The prostate gland is present. No free pelvic fluid is identified. 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 COMPARISON: Comparison is made with a pelvis MRI from 01/22/2019. FINDINGS: There is slightly decreased wall thickening and enhancement of thedistal rectum representing the patient's known rectal cancer. Luminal narrowing has slightly decreased. The enhancing wall of the rectum measures up to 1.9 cm in maximal dimension at the left aspect of the rectum (series 15, image 59), previously 2.1 cm. Associated diffusion restriction has decreased. There is no extension of tumor through the muscularis propria into the mesorectal fat. Although, fat stranding/hyperemia in the mesorectal fat persists. A 6 mm T1 hyperintense hemorrhagic lesion atthe anal verge (series 12, image 78) may be related to radiation therapy. A similar lesion is noted in the right aspect of the prostate gland. No abnormal lymph nodes are identified. The bladder is partially distended with fluid and appears normal. The prostate gland is present. No free pelvic fluid is identified. IMPRESSION: 1. Slightly decreased wall thickening, hyperenhancement, and luminal narrowing of the distal rectum, representing response to therapy. No definite extension of tumor through the muscularis propria. Unchanged mesorectal fat stranding. 2. No pelvic lymphadenopathy. Report dictated by Austin Renteria MD (advertising vice president). I, Dr. ANGEL RICKS M.D. have personally reviewed and interpreted this examination/study. This report was electronically signed by ANGEL RICKS M.D. on05/16/2019 2:12 PM . Irene Rojas MD MR ORDERABLES * CREATININE BLOOD - POCT (IP) [facility] (05/14/2019 8:44 AM CDT) Only the most recent of4 resultswithin the time period is included. Creatinine POCT 0.69 0.3 - 1.3 mg/dL [facility] eGFR POCT 60 60 ml/min [facility] Blood BLOOD SPECIMEN / Unknown 05/14/2019 8:44 AM CDT Irene Rojas MD LAB - POINT OF CAR E ORDERABLES [facility] [address] [phone] * COMPLETE PFT W/WO BRONCHODILATOR (05/12/2019 10:46 AM CDT) Impressions Jeffery Vega MD - 05/12/2019 10:46 AM CDT [facility] DEPARTMENT OF PULMONARY, CRITICAL CARE, AND SLEEP MEDICINE PULMONARY FUNCTION TEST Please see technologist's comments mentioned in the report. INTERPRETATION: SPIROMETRY: Increased FVC. Decreased FEV1. Decreased FEV1/FVC ratio. BRONCHODILATOR RESPONSE: Bronchodilator test was positive LUNG VOLUME: Total lung capacity by body plethysmography is increased Increased residual volume Reduced adjusted DLCO FLOW-VOLUME LOOPS: Scooping of the expiratory limbs ARTERIAL BLOOD GAS No significant acid base abnormality. No hypoxia. IMPRESSION: 1/Severe obstructive ventilatory limitation 2/Mild reduced adjusted DLCO, increased airway resistance, normal specific airway conductance, air trapping, hyperinflation. 3/Bronchodilator test showed a response to bronchodilator. 4/ Compared to the prior study oin 04/2018, there was a 800 cc decrease in FVC and 400 cc decrease in FEV1, 4 ml/min/mmHg decrease in DLCO. 5/ No significant acid base abnormality. No hypoxia. Susanne Sharma MD [facility] Pager: [phone] I have personally reviewed the pulmonary function test data and made adjustment to the interpretation where necessary. Jeffery Vega MD 05/12/2019 Narrative Jeffery Vega MD - 05/12/2019 10:46 AM CDT Susanne Sharma MD 05/05/2019 6:36 PM Procedure Note Susanne Sharma MD - 05/05/2019 11:36 AM CDT Images from the original note were not included. Jamie Arboleda MD RESPIRATORY THERAPY ORDERABLES * PET CT WHOLE BODY (01/18/2019 1:12 PM AGENCY SERVICE COORDINATOR) Anatomical Region Laterality Modality Positron Emissio n Tomography (PET) 01/18/2019 1:10 PM AGENCY SERVICE COORDINATOR Impressions 01/18/2019 1:56 PM AGENCY SERVICE COORDINATOR IMPRESSION: 1. Diffuse wall thickening involving the rectum with extension into the rectosigmoid colon demonstrating increased FDG avidity with SUV max of 14.1, consistent with primary colonic malignancy. Mild perirectal fat stranding without abdominal or pelvic lymphadenopathy. 2. No metastatic disease to the chest. Dictated by Jyoti Dumont M.D.( advertising vice president) This report was approved by Jyoti Dumont M.D. on 01/18/2019 1:36 PM . IDr. ADIA D.O. have personally reviewed and interpreted this examination/study. This report was electronically signed by ADIA MARTE D.O. on 01/18/2019 1:56 PM . Narrative 01/18/2019 1:56 PM AGENCY SERVICE COORDINATOR Procedure: PET/CT Study. 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 TECHNIQUE: 10.61 mCi of F-18 FDG was injected intravenously in the left hand. PET/CT images were acquired from top of the head to the feet after approximately 60 minutes post-injection with the CT being low-dose, non-contrast. No separate report for the CT was generated as it was of non-diagnostic quality and was used for anatomic localization and attenuation correction only. Blood glucose level at the time of injection was 91 mg/dl. FINDINGS: No prior study is available for comparison. For reference, SUV max of liver is 3.9 Head and neck: There is physiological FDG activity throughout the brain parenchyma. No abnormal FDG focus is present. No hypermetabolic or enlarged cervical lymph node is identified. Chest: The heart size is normal. No pericardial effusion is present. There is mild diffuse increased FDG uptake in the thoracic esophagus, likely related to esophagitis. The lungs are clear of focal consolidation. No pleural effusion is identified. There is no evidence of pneumothorax. No suspicious hypermetabolic pulmonary nodule is identified. A 5 mm left lower lobe pulmonary nodule is seen without increased FDG avidity. Emphysematous changes are seen. No hypermetabolic or enlarged mediastinal, axillary, or supraclavicular lymphadenopathy is seen. Abdomen and pelvis: Within the limitations of a noncontrast examination, the liver, gallbladder, spleen, pancreas, kidneys and adrenal glands are unremarkable. There is normal FDG activity throughout the small bowel. No free air or free fluid is identified within the abdomen. There is no hypermetabolic or enlarged abdominal or pelvic lymphadenopathy. There is wall thickening involving the rectum with extension into the rectosigmoid colon which demonstrates increased FDG avidity with SUV max of 14.1. There is mild perirectal fat stranding. Musculoskeletal: There are no focal FDG avid bone lesions. Procedure Note Adia Marte, - 01/18/2019 Procedure: PET/CT Study. 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 TECHNIQUE: 10.61 mCi of F-18 FDG was injected intravenously in the left hand. PET/CT images were acquired from top of the head to the feet after approximately 60 minutes post-injection with the CT being low-dose, non-contrast. No separate report for the CT was generated as it was of non-diagnostic quality and was used for anatomic localization and attenuation correction only. Blood glucose level at the time ofinjection was 91 mg/dl. FINDINGS: No prior study is available for comparison. For reference, SUV max of liver is 3.9 Head and neck: There is physiological FDG activity throughout the brain parenchyma. No abnormal FDG focus is present. No hypermetabolic or enlarged cervical lymph node is identified. Chest: The heart size is normal. No pericardial effusion is present. There is mild diffuse increased FDG uptake in the thoracic esophagus, likely related to esophagitis. The lungs are clear of focal consolidation. No pleural effusion is identified. There is no evidence of pneumothorax. No suspicious hypermetabolic pulmonary nodule is identified. A 5 mm left lower lobe pulmonary nodule is seen without increased FDG avidity. Emphysematous changes are seen. No hypermetabolic or enlarged mediastinal, axillary, or supraclavicular lymphadenopathy is seen. Abdomen and pelvis: Within the limitations of a noncontrast examination, the liver, gallbladder, spleen, pancreas, kidneys and adrenal glands are unremarkable. There is normal FDG activity throughout the small bowel. No free air or free fluid is identified within the abdomen. There is no hypermetabolic or enlarged abdominal or pelvic lymphadenopathy. There is wall thickening involving the rectum with extension into the rectosigmoid colon which demonstrates increased FDG avidity with SUV max of 14.1. There is mild perirectal fat stranding. Musculoskeletal: There are no focal FDG avid bone lesions. IMPRESSION: 1. Diffuse wall thickening involving the rectum with extension into the rectosigmoid colon demonstrating increased FDG avidity with SUV max of 14.1, consistent with primary colonic malignancy. Mild perirectal fat stranding without abdominal or pelvic lymphadenopathy. 2. No metastatic disease to the chest. Dictated by Jyoti Dmuont M.D.( advertising vice president) This report was approved by Jyoti Dumont M.D. on 01/18/2019 1:36 PM. I, Dr. ADIA MARTE D.O. have personally reviewed and interpreted this examination/study. This report was electronically signed by ADIA MARTE D.O. on01/18/2019 1:56 PM . Ina Boyer MD NM ORDERABLES * GLUCOSE SCREEN - POCT (IP) [facility] (01/18/2019 11:33 AM AGENCY SERVICE COORDINATOR) Glucose WB/POC 91 70 - 115 mg/dL [facility] Blood BLOOD SPECIMEN / Unknown 01/18/2019 11:33 AM AGENCY SERVICE COORDINATOR Ina Boyer MD LAB - POINT OF CAR E ORDERABLES [facility] [address] [phone] * [place] DSTRJ ALL PRMLG 15 OR MORE (01/18/2019 10:18 AM AGENCY SERVICE COORDINATOR) Narrative Rosie Quigley MD - 01/18/2019 10:18 AM AGENCY SERVICE COORDINATOR Shavon Dickson MD 01/17/2019 2:04 PM Diagnosis and treatment options discussed for AKs. Verbal consent obtained. Cryotherapy (Liquid Nitrogen) performed to 17 lesions on R helix x 3, R presybeterian x 1, L cheek x 3, L neck x 5, R FA x 1 (more hypertrophic), R dorsal hand x 2, L dorsal hand x 2 for 6-7 seconds each. Number of cycles: 1. Wound care reviewed and post-cryotherapy handout given. Shavon Dickson MD [facility] Dermatology Resident, PGY-4 Rosie Quigley MD PROCEDURE/MINOR SURG ICAL ORDERABLES * (ABNORMAL) CYTOMEGALOVIRUS DNA RT-PCR QUANT (01/13/2019 10:03 AM AGENCY SERVICE COORDINATOR) Only the most recent of39 resultswithin the time period is included. CMV Quant By PCR, Blood 315(H) Not Detected IU/mL 01/14/2019 2:10 PM AGENCY SERVICE COORDINATOR [facility] CMV Quant by PCR, Interp Detected( A) Not Detected 01/14/2019 2:10 PM AGENCY SERVICE COORDINATOR [facility] Microbiology BLOOD SPECIMEN / Unknown Collection / Unknown 01/13/2019 10:03 AM AGENCY SERVICE COORDINATOR 01/13/2019 10:36 AM AGENCY SERVICE COORDINATOR Narrative [facility] - 01/14/2019 2:10 PM AGENCY SERVICE COORDINATOR The CMV DNA analysis utilized real-time PCR, and is reported as Not Detected, Detected (<50 IU/mL) [or Detected (<1.70 log IU/mL], 50 156,000,000 IU/mL [or 1.70 to 8.19 log IU/mL], or >156,000,000 IU/mL [>8.19 log IU/mL]. The analytic sensitivity (LOD) of the assay is 31.20 IU/mL [1.49 log IU/mL] (100% of samples with this CMV/DNA level were detected). Linear range of the assay is 50 156,000,000 IU/ml [or 1.70 to 8.19 log IU/mL]. The detection/quantitation of CMV DNA in plasma is based on the isolation of CMV DNA followed by real-time PCR in the presence of reference standard DNA. The standard ensures that DNA was isolated, and that no general significant inhibitors of the real-time PCR process were present. Absolute CMV values or breakpoints for symptomatic disease have not been established and appear to be different between patient populations and laboratories. Therefore, it is important to monitor patients and to follow increases and/or decreases in the level of CMV in multiple blood specimens. The analysis was performed using an [place] FDA approved test methodology (Lacey RealTime CMV). Ina Boyer MD LAB - MICROBIOLOGY ORDERABLES Performing Organization Address City/[facility]/ZIP Co de Phone Number [facility] [address] [phone] * CEA BLOOD (01/13/2019 10:03 AM AGENCY SERVICE COORDINATOR) CEA 3.630 <5.000 ng/mL 01/13/2019 11:11 AM AGENCY SERVICE COORDINATOR [facility] Comment: CEA values will vary depending on testing procedure used. Results are not comparable across different methods. CEA values obtained in [facility] using a Tyler Adelso Immunoassay. Blood BLOOD SPECIMEN / Unknown Lab Venipuncture / Unknown 01/13/2019 10:03 AM AGENCY SERVICE COORDINATOR 01/13/2019 10:36 AM AGENCY SERVICE COORDINATOR Ina Boyer MD LAB - CHEMISTRY OR DERABLES Performing Organization Address [facility]/ZIP Co de Phone Number [facility] [address] [place] [address], [facility] [phone] * (ABNORMAL) CYTOMEGALOVIRUS QUAL PCR (11/04/2018 9:40 AM AGENCY SERVICE COORDINATOR) Only the most recent of2 resultswithin the time period is included. Pathologist [facility] [place] Cytomegalovirus Source Blood 11/08/2018 4:20 AM AGENCY SERVICE COORDINATOR [facility] ([facility]) Cytomegalovirus PCR Detected( A) 11/08/2018 4:20 AM AGENCY SERVICE COORDINATOR [facility] 28m[employer] ([facility]) Comment: INTERPRETIVE INFORMATION: Cytomegalovirus Detection by PCR Test developed and characteristics determined by [employer]. See Compliance Statement A: [employer]/ Performed by [facility], [address] [place] [address] [email or web address], Jhony Leone MD, Lab. Director Blood BLOOD SPECIMEN / Unknown Venipuncture / Unknown 11/04/2018 9:40 AM AGENCY SERVICE COORDINATOR 11/04/2018 9:52 AM AGENCY SERVICE COORDINATOR Leona Sina Tay DERRICK [employer] LAB - BODY F LUID ORDERABLES Performing Organization Address City/State/[facility] Co de Phone Number [facility] ([facility]) [address] * HEPATITIS B SURFACE ANTIBODY QUANT (08/12/2018 9:55 AM CDT) Pathologist [facility] [place] Hepatitis B Virus Surface Antibody 274.63 IU/L 08/14/2018 9:06 AM CDT [facility] ([facility]) Comment: The anti-HBs is greater than or equal to 10 IU/L. This patient has either had an antibody response to HBV vaccination, received a transfusion, or has recovered from HBV infection. This patient should be considered immune to hepatitis B. An anti-HBs result greater than or equal to 10 IU/L implies immunity. For post-vaccination antibody testing guidelines for the general public refer to MMWR November 21, 2005/Vol. 54(No. 16);1-23, and for healthcare workers refer to MMWR November 18, 2013/Vol. 62(No. 10);1-19. Reference Interval: anti-HBs 9.99 IU/L or less ....... Negative 10.00 IU/L or greater .... Positive Results greater than 1,000.00 IU/L are reported as greater than 1,000.00 IU/L. This assay should not be used for blood donor screening, associated re-entry protocols, or for screening Human Cell, Tissues and Cellular and Tissue-Based Products (HCT/P). Performed by [facility], [address] [place] [address] [email or web address], Jhony Leone MD, Lab. Director Blood BLOOD SPECIMEN / Unknown Venipuncture / Unknown 08/12/2018 9:55 AM CDT 08/12/2018 10:14 AM CDT Ina Boyer MD LAB - SEROLOGY ORD ERABLES Performing Organization Address City/[facility]/ZIP Co de Phone Number [facility]) [address] [place] [address] * VARICELLA ZOSTER ANTIBODY IGG (08/12/2018 9:54 AM CDT) Only the most recent of2 resultswithin the time period is included. Varicella zoster Virus Antibody IgG 1068 Immune >165 index 08/13/2018 5:11 PM CDT [facility] ([facility]) Comment: Negative <135 Equivocal 135 - 165 Positive >165 A positive result generally indicates exposure to the pathogen or administration of specific immunoglobulins, but it is not indication of active infection or stage of disease. Blood BLOOD SPECIMEN / Unknown Venipuncture / Unknown 08/12/2018 9:54 AM CDT 08/12/2018 10:14 AM CDT Narrative [facility] ([facility]) - 08/13/2018 5:11 PM CDT Performed at: [address] [place] [address] [address] [place], [place] [id number] Tread Builder: Maycol Coronado PhD, Phone: [phone] Ina Boyer MD LAB - CHEMISTRY OR DERABLES [facility] ([facility]) [address] [place] [address], [facility] CENTER * [place] DSTRJ ALL PRMLG 15 OR MORE (07/05/2018 3:49 PM CDT) Narrative Rosie Quigley MD - 07/05/2018 3:49 PM CDT Afshin Cueto MD 07/05/2018 11:29 AM Diagnosis and treatment options discussed. Cryotherapy (Liquid Nitrogen) to 15 lesions for 5-7 seconds each. Number of cycles: 1. Wound care reviewed. Right medial cheek x2, left presybeterian x2, left zygoma, left lower cheek, left jawline x2, left FH, left antihelix, right helical rim, right nasal sidewall, right neck, right dorsal hand, right forearm Afshin Cueto U Dermatology Resident PGY-4 Rosie Quigley MD PROCEDURE/MINOR SURG ICAL ORDERABLES * HIGH ALTITUDE SIMULATION TEST (HAST) STUDY (06/28/2018) Impressions Jeffery Vega MD - 06/28/2018 [facility] DEPARTMENT OF PULMONARY, CRITICAL CARE, AND SLEEP MEDICINE High Altitude Simulation Test Xavier Sosa 06/28/2018 Interpretation: The high altitude simulation test was performed on 15% FiO2 for a total of 20 minutes. On the João scale, the patient reported dyspnea of 0 on completion of the test. Arterial blood gas analysis during the test showed a PaO2=50mmHg and SaO2 = 82.5%. IMPRESSION: 1. Postive High Altitude Simulation Test. The patient does require supplemental oxygen for high altitude travel. Fellow: Jacek Deleon MD. PhD. Division of Pulmonary, Critical Care, & Sleep Medicine [facility] I have personally reviewed the pulmonary function test data and made adjustment to the interpretation where necessary. Jeffery Vega MD 07/11/2018 Jamie Arboleda MD PFT ORDERABLES * PFT OXYGEN DESATURATION STUDY (06/28/2018) ImpressionJeffery Hylton MD - 06/28/2018 [facility] Department of Pulmonary, Critical Care, and Sleep Medicine EXERCISE OXYGEN PRESCRIPTION Interpretation: The patient had a saturation of 100 % on RA at the beginning of the test. After walking for 4 minutes on the treadmill with a speed of 1.2 MPH, followed by another 4 minutes with a speed of 2 MPH, saturation was 96% requiring no Oxygen support. He stopped due to end of protocol. Impression: The patient will need no oxygen support to sustain oxygen saturation above 88% on exertion. Actual oxygen desaturation beyond this test may vary depending on the amount of exertionexhibited by the patient. Jacek Deleon MD ( Fellow) Division of Pulmonary, Critical Care, & Sleep Medicine [facility] 06/28/2018 , 3:48 PM I have personally reviewed the pulmonary function test data and made adjustment to the interpretation where necessary. Jeffery Vega MD 07/11/2018 Jamie Arboleda MD PFT ORDERABLES * CT CHEST WO CONTRAST (06/21/2018 2:07 PM CDT) Only the most recent of4 resultswithin the time period is included. Anatomical Region Laterality Modality Chest Computed Tomogra phy 06/21/2018 2:38 PM CDT Impressions 06/28/2018 2:44 PM CDT IMPRESSION: Near complete resolution of right middle lobe, right lower lobe, and left upper lobe tree-in-bud opacities. Decreased tree-in-bud nodules in the right upper lobe with resolution of cavitary nodules. Findings likely represent improving infection. Continued follow-up is recommended to resolution. Dictated by Terell Ricks MD (advertising vice president). I, Dr. DANIELA ASCENCIO M.D. have personally reviewed and interpreted this examination/study. This report was electronically signed by DANIELA ASCENCIO M.D. on 06/28/2018 2:44 PM . Narrative 06/28/2018 2:44 PM CDT EXAMINATION: Computed tomography (CT) of the chest without contrast HISTORY: Follow up cavitary lesion TECHNIQUE: CT of the chest was performed without contrast according to standard protocol. COMPARISON: Comparison made to CT chest dated 05/31/2018. FINDINGS: Evaluation of visceral and vascular structures is degraded due to lack of intravenous contrast administration. There is a left-sided three-vessel aortic arch. The aorta and main pulmonary arteries are normal in course and caliber. The coronary arteries and aorta are atherosclerotic. Tree-in-bud nodules have nearly resolved in the right middle, right lower and left upper lobes, and have decreased in the inferior right upper lobe compared to the prior exam. No cavitary nodules are currently identified. Centrilobular emphysema is seen. There is no pleural effusion or focal pleural thickening. There is no evidence of pneumothorax. The trachea is patent and midline. The heart size is normal. No pericardial effusion is present. No mediastinal, supraclavicular, or axillary lymphadenopathy is seen. Other than a small granuloma in the liver, the visible portions of the liver, gallbladder, spleen, pancreas, adrenal glands, kidneys, stomach, and bowel are normal. Bone windows demonstrate no suspicious lytic or blastic lesions. The visible osseous structures are intact. Multilevel degenerative changes are noted in the spine. Procedure Note Daniela Ascencio MD - 06/28/2018 EXAMINATION: Computed tomography (CT) of the chest without contrast HISTORY: Follow up cavitary lesion TECHNIQUE: CT of the chest was performed without contrast according to standard protocol. COMPARISON: Comparison made to CT chest dated 05/31/2018. FINDINGS: Evaluation of visceral and vascular structures is degraded due to lackof intravenous contrast administration. There is a left-sided three-vessel aortic arch. The aorta and main pulmonary arteries are normal in course and caliber. The coronaryarteries and aorta are atherosclerotic. Tree-in-bud nodules have nearly resolved in the right middle, rightlower and left upper lobes, and have decreased in the inferior right upperlobe compared to the prior exam. No cavitary nodules are currentlyidentified. Centrilobular emphysema is seen. There is no pleural effusion or focal pleural thickening. There is no evidence of pneumothorax. The trachea is patent and midline. The heart size is normal. No pericardial effusion is present. No mediastinal, supraclavicular, or axillary lymphadenopathy is seen. Other than a small granuloma in the liver, the visible portions of the liver, gallbladder, spleen, pancreas, adrenal glands, kidneys, stomach, and bowel are normal. Bone windows demonstrate no suspicious lytic or blastic lesions. The visible osseous structures are intact. Multilevel degenerative changesare noted in the spine. IMPRESSION: Near complete resolution of right middle lobe, right lower lobe, andleft upper lobe tree-in-bud opacities. Decreased tree-in-bud nodules in the right upper lobe with resolution of cavitary nodules. Findings likely represent improving infection. Continued follow-up is recommended to resolution. Dictated by Terell Ricks MD (advertising vice president). I, Dr. DANIELA ASCENCIO M.D. have personally reviewed and interpretedthis examination/study. This report was electronically signed by DANIELA ASCENCIO M.D. on 06/28/2018 2:44 PM . Sly Diaz MD CT ORDERABLES * MPO/WV 3 AUTOANTIBODIES PANEL (06/03/2018 6:25 AM CDT) Pathologist [facility] [place] Anti-myeloperox idase (MPO) Antibody <9.0 0.0 - 9.0 U/mL 06/07/2018 5:10 PM CDT [facility] ([facility]) Anti-proteinase 3 (WV-3) Abs <3.5 0.0 - 3.5 U/mL 06/07/2018 5:10 PM CDT [facility] ([facility]) Blood BLOOD SPECIMEN / Unknown Venipuncture / Unknown 06/03/2018 6:25 AM CDT 06/03/2018 7:57 AM CDT Narrative [facility] ([facility]) - 06/07/2018 5:10 PM CDT Performed at: [facility] [id number] Tread Builder: Eugene Boswell MD, Phone: [phone] Sly Diaz MD LAB - CHEMISTRY ORDAmos CASTELLON [facility] ([facility]) [address] [place] [address] * CRYPTOCOCCUS ANTIGEN BLOOD (06/03/2018 6:25 AM CDT) Pathologist [facility] [place] Cryptococcus Antigen Negative Negative 06/03/2018 2:06 PM CDT [facility] Blood BLOOD SPECIMEN / Unknown Venipuncture / Unknown 06/03/2018 6:25 AM CDT 06/03/2018 7:58 AM CDT Sly Diaz MD LAB - SEROLOGY ORDER CALEB [facility] [address] [place], [address] [phone] * ASPERGILLUS GALACTOMANNAN ANTIGEN BLOOD (06/02/2018 7:24 AM CDT) Pathologist [facility] [place] Aspergillus Antigen BAL/Serum 0.12 0.00 - 0.49 Index 06/06/2018 12:07 PM CDT [facility] ([facility]) Blood BLOOD SPECIMEN / Unknown 06/02/2018 7:24 AM CDT 06/02/2018 7:30 AM CDT Narrative [facility] ([facility]) - 06/06/2018 12:07 PM CDT Performed at: 01 - [address] [id number] Tread Builder: Eugene Boswell MD, Phone: [phone] Sly Diaz MD LAB - SEROLOGY ORDER CALEB [facility] ([facility]) [address] [id number] * HISTOPLASMA ANTIGEN BLOOD (06/02/2018 7:24 AM CDT) Pathologist [facility] [place] Comment SEE SCANNED REPORT 06/11/2018 10:05 AM CDT [facility] REF LAB NON INTERF Blood BLOOD SPECIMEN / Unknown Lab Venipuncture / Unknown 06/02/2018 7:24 AM CDT 06/02/2018 7:30 AM CDT Sly Diaz MD LAB - CHEMISTRY KIT CASTELLON Performing Organization Address City/[facility]/ZIP Co de Phone Number [facility] REF LAB NON INTERF [address] [place] [address] * CYCLIC CITRUL PEPTIDE AB IGG (CCP) (06/02/2018 7:24 AM CDT) Pathologist [facility] [place] CCP Antibody IgG 2.3 <5.0 U/mL 06/02/2018 8:41 AM CDT [facility] Blood BLOOD SPECIMEN / Unknown Lab Venipuncture / Unknown 06/02/2018 7:24 AM CDT 06/02/2018 7:30 AM CDT Sly Diaz MD LAB - CHEMISTRY KIT CASTELLON [facility] [address] [place] [address] * (ABNORMAL) LZOI-N-AWSBVA (1,3) (FUNGITELL) (06/02/2018 7:23 AM CDT) [facility] Tjqh-b-Khozlf 468 pg/mL 06/04/2018 7:57 PM CDT [facility] 28msec ([facility]) Interpretation Zdlm-c-Qxjhkl Positive (A) Negative 06/04/2018 7:57 PM CDT [facility] ([facility]) Comment: INTERPRETIVE INFORMATION: (1,3)-ibgv-J-gyfgmn (Fungitell) Less than 31 pg/mL ................... Negative 31-59 pg/mL .......................... Negative 60-79 pg/mL .......................... Indeterminate Greater than or equal to 80 pg/mL .... Positive The Fungitell test is indicated for presumptive diagnosis of fungal infection and should be used in conjunction with other diagnostic procedures. This test does not detect certain fungal species such as Cryptococcus, which produce very low levels of (1,3)-revl-C-gyhpob. This test will not detect the zygomycetes, such as Absidia, Mucor, and Rhizopus, which are not known to produce (1,3)-oste-F-apatlm. In addition, the yeast phase of Blastomyces dermatitidis produces little (1,3)-wgpj-G-sugusv and may not be detected by the assay. Performed by [facility], [address] [place] [id number] [email or web address], Jhony Leone MD, Lab. Director Blood BLOOD SPECIMEN / Unknown 06/02/2018 7:23 AM CDT 06/02/2018 7:30 AM CDT Sly Diaz MD LAB - CHEMISTRY KIT CASTELLON [facility] Organization Address City/State/ZIP Co de Phone Number [employer] [facility]) [address] [place] [address], [facility] * QUANTIFERON TB-GOLD INC (06/02/2018 7:23 AM CDT) Only the most recent of2 resultswithin the time period is included. [facility] Signature QuantiFERON TB Gold Negative Negative 06/05/2018 5:07 PM CDT [facility] ([facility]) Comment: The specimen received for QuantiFERON testing was incubated by the ordering institution. Specific procedures outlined in our Directory of Services and in the package insert for the QuantiFERON Gold (In Tube) test must be followed to enable for proper stimulation of cells for the production of interferon gamma. QuantiFERON Criteria Comment 06/05/2018 5:07 PM CDT [facility] ([facility]) Comment: To be considered positive a specimen should have a TB Ag minus Nil value greater than or equal to 0.35 IU/mL and in addition the TB Ag minus Nil value must be greater than or equal to 25% of the Nil value. There may be insufficient information in these values to differentiate between some negative and some indeterminate test values. QuantiFERON TB Ag Value 0.06 IU/mL 06/05/2018 5:07 PM CDT [facility] ([facility]) QuantiFERON Nil Value 0.05 IU/mL 06/05/2018 5:07 PM CDT [facility] ([facility]) QuantiFERON Mitogen Value >10.00 IU/mL 06/05/2018 5:07 PM CDT [facility] ([facility]) QFT TB Ag Minus Nil Value IU/mL 0.01 IU/mL 06/05/2018 5:07 PM CDT [facility] ([facility]) Interpretation Comment 06/05/2018 5:07 PM CDT [facility] ([facility]) Comment: The QuantiFERON TB Gold (in Tube) assay is intended for use as an aid in the diagnosis of TB infection. Negative results suggest that there is no TB infection. In patients with high suspicion of exposure, a negative test should be repeated. A positive test indicates infection with Mycobacterium tuberculosis. Among individuals without tuberculosis infection, a positive test may be due to exposure to M. kansasii, M. szulgai or M. marinum. On the Internet, go to cdc.gov/tb for further details. Blood BLOOD SPECIMEN / Unknown 06/02/2018 7:23 AM CDT 06/02/2018 7:33 AM CDT Narrative [facility] ([facility]) - 06/05/2018 5:07 PM CDT Performed at: [address] [id number] Tread Builder: Maycol Coronado PhD, Phone: [phone] Sly Diaz MD LAB - SEROLOGY ORDER CALEB Performing Organization Address City/[facility]/ZIP Co de Phone Number [facility] ([facility]) [address] [place] [phone] * RHEUMATOID FACTOR BLOOD QUANTITATIVE (06/02/2018 7:23 AM CDT) Rheumatoid Factor <15 <30 IU/mL 06/02/2018 7:55 AM CDT [facility] Blood BLOOD SPECIMEN / Unknown 06/02/2018 7:23 AM CDT 06/02/2018 7:30 AM CDT Sly Diaz MD LAB - CHEMISTRY KIT CASTELLON Performing Organization Address City/[facility]/ZIP Co de Phone Number [facility] [address] [phone] * KIM BLOOD SCREEN W/REFLEX TITER (06/02/2018 7:23 AM CDT) KIM Negative 06/04/2018 4:22 PM CDT [facility] ([facility]) Comment: Negative <1:80 Borderline 1:80 Positive >1:80 Blood BLOOD SPECIMEN / Unknown 06/02/2018 7:23 AM CDT 06/02/2018 7:29 AM CDT Narrative [facility] ([facility]) - 06/04/2018 4:22 PM CDT Performed at: [address] [id number] Tread Builder: Maycol Coronado PhD, Phone: [phone] Sly Diaz MD LAB - CHEMISTRY KIT CASTELLON Performing Organization Address City/[facility]/ZIP Co de Phone Number [facility] ([facility]) [address] [place] [address] * NEUTROPHIL CYTOPLASMIC ANTIBODY IGG (06/02/2018 7:23 AM CDT) ANCA IgG <1:20 <1:20 06/04/2018 12:38 PM CDT [facility] ([facility]) Comment: The ANCA IFA is <1:20; therefore, no further testing will be performed. INTERPRETIVE INFORMATION: Anti-Neutrophil Cyto Ab, IgG Neutrophil Cytoplasmic Antibodies (C-ANCA = granular cytoplasmic staining, P-ANCA = perinuclear staining) are found in the serum of over 90 percent of patients with certain necrotizing systemic vasculitides, and usually in less than 5 percent of patients with collagen vascular disease or arthritis. Performed by [facility], [address] [place] [address] [email or web address], Jhony Leone MD, Lab. Director Blood BLOOD SPECIMEN / Unknown 06/02/2018 7:23 AM CDT 06/02/2018 7:30 AM CDT Sly Diaz MD LAB - SEROLOGY ORDER CALEB [facility] [address] [id number], [facility] * HISTOPLASMA GALACTOMANNAN AG URINE (06/01/2018 7:04 PM CDT) Urine URINE / Unknown Collection / Unknown 06/01/2018 7:04 PM CDT 06/01/2018 7:11 PM CDT Sly Diaz MD LAB - URINE CHEMISTR Y ORDERABLES [facility] REF LAB NON INTERF [address] [place] [address] * CELL COUNT W DIFFERENTIAL FLUID (06/01/2018 1:02 PM CDT) Color Fluid Colorless Colorles s, Straw 06/01/2018 1:37 PM CDT [facility] Clarity Fluid Clear Clear 06/01/2018 1:37 PM CDT [facility] [employer] Volume Fluid 6.0 mL 06/01/2018 1:37 PM CDT [facility] WBC Calculation Fluid 10 /uL 06/01/2018 1:37 PM [facility] RBC Calculation 298 /uL 8 1:37 PM T [facility] Differential Manual Differential to follow. 06/01/2018 1:37 PM CDT [facility] Fluid BRONCHIOLOALVEOLAR LAVAGE / Unknown Collection / Unknown 06/01/2018 1:02 PM CDT 06/01/2018 1:20 PM CDT Narrative [facility] - 06/01/2018 1:37 PM CDT No established reference range for WBC and RBC body fluid count. Balbina Munoz MD LAB - BODY FLUI D ORDERABLES [address] [phone] * DIFFERENTIAL MANUAL FLUID (06/01/2018 1:02 PM CDT) Only the most recent of2 resultswithin the time period is included. Segs % Fluid 90 % 06/01/2018 2:04 PM CDT [facility] Lymphocytes % Fluid 2 % 06/01/2018 2:04 PM CDT [facility] Monocytes % Fluid 1 % 06/01/2018 2:04 PM CDT [facility] Macrophages % Fluid 7 % 06/01/2018 2:04 PM CDT [facility] Fluid BRONCHIOLOALVEOLAR LAVAGE / Unknown Collection / Unknown 06/01/2018 1:02 PM CDT 06/01/2018 1:20 PM CDT Narrative [facility] - 06/01/2018 2:04 PM CDT Few degenerated cells present. Balbina Munoz MD LAB - BODY FLUI D ORDERABLES [address] [phone] * (ABNORMAL) RESPIRATORY PATHOGEN PANEL BY PCR (06/01/2018 1:01 PM CDT) Only the most recent of5 resultswithin the time period is included. Adenovirus PCR Not detected Not detected, Invalid, Indeterminate 06/01/2018 6:15 PM T [facility] Human Metapneumovirus PCR Not detected Not detected, Invalid, Indeterminate 06/01/2018 6:15 PM [facility] Human Rhinovirus/Entero virus PCR Detected(A ) Not detected, Invalid, Indeterminate 06/01/2018 6:15 PM T [facility] Influenza A Non Subtyped PCR Not detected Not detected, Invalid, Indeterminate 06/01/2018 6:15 PM T [facility] Influenza A H1 PCR Not detected Not detected, Invalid, Indeterminate 06/01/2018 6:15 PM T [facility] Influenza A H3 PCR Not detected Not detected, Invalid, Indeterminate 06/01/2018 6:15 PM T [facility] Influenza A H1 2009 PCR Not detected Not detected, Invalid, Indeterminate 06/01/2018 6:15 PM [facility] Influenza B PCR Not detected Not detected, Invalid, Indeterminate 06/01/2018 6:15 PM [facility] Mycoplasma pneumoniae PCR Not detected Not detected, Invalid, Indeterminate 06/01/2018 6:15 PM T [facility] Parainfluenza Virus 1 PCR Not detected Not detected, Invalid, Indeterminate 06/01/2018 6:15 PM T [facility] Parainfluenza Virus 2 PCR Not detected Not detected, Invalid, Indeterminate 06/01/2018 6:15 PM [facility] Parainfluenza Virus 3 PCR Not detected Not detected, Invalid, Indeterminate 06/01/2018 6:15 PM [facility] Parainfluenza Virus 4 PCR Not detected Not detected, Invalid, Indeterminate 06/01/2018 6:15 PM T [facility] Respiratory Syncytial Virus PCR Not detected Not detected, Invalid, Indeterminate 06/01/2018 6:15 PM T [facility] Bordetella pertussis PCR Not detected Not detected, Invalid 06/01/2018 6:15 PM [facility] Coronavirus PCR Not detected Not detected, Invalid, Indeterminate 06/01/2018 6:15 PM [facility] Microbiology BRONCHIOLOALVEOLAR LAVAGE / Unknown Collection / Unknown 06/01/2018 1:01 PM CDT 06/01/2018 2:00 PM CDT Narrative [facility] - 06/01/2018 6:15 PM CDT Contact and Droplet Precautions Required. Coronavirus PCR detects the following coronaviruses: 229E, HKU1, NL63, OC43. Balbina Munoz MD LAB - MICROBIOL OGY ORDERABLES Performing Organization Address [facility] de Phone Number [facility] [address] [place] [address], [facility] [phone] * (ABNORMAL) CULTURE FUNGUS OTHER+FUNGUS SMEAR (06/01/2018 1:01 PM CDT) Only the most recent of3 resultswithin the time period is included. Culture Rare Georgina albicans(A) TANIYA 06/28/2018 6:20 AM CDT [facility] Fungus Smear No yeast or hyphae seen 06/28/2018 6:20 AM CDT [facility] Fungus Smear No Pneumocystis jirovecii 06/28/2018 6:20 AM CDT [facility] Microbiology BRONCHIOLOALVEOLAR LAVAGE / Unknown Collection / Unknown 06/01/2018 1:01 PM CDT 06/01/2018 1:18 PM CDT Balbina Munoz MD LAB - MICROBIOL OGY ORDERABLES Performing Organization Address [facility] de Phone Number [facility] [address] [place] [address], [facility] [phone] * CULTURE BRONCHOALVEOLAR LAVAGE QNT+GRAM STAIN (06/01/2018 1:01 PM CDT) Culture No growth TANIYA 06/03/2018 7:24 AM CDT [facility] Gram Stain Light White blood cells 06/03/2018 7:24 AM CDT [facility] Gram Stain No organisms seen 06/03/2018 7:24 AM CDT [facility] Microbiology BRONCHIOLOALVEOLAR LAVAGE / Unknown Collection / Unknown 06/01/2018 1:01 PM CDT 06/01/2018 1:18 PM CDT Balbina Munoz MD LAB - MICROBIOL OGY ORDERABLES Performing Organization Address City/[facility] Co de Phone Number [facility] [address] [place] [address], [facility] [phone] * CULTURE AFB+SMEAR (06/01/2018 1:01 PM CDT) Only the most recent of3 resultswithin the time period is included. Culture No acid-fast bacillus isolated 07/12/2018 9:35 AM CDT [facility] AFB Smear No acid-fast bacilli seen 07/12/2018 9:35 AM CDT [facility] Microbiology BRONCHIOLOALVEOLAR LAVAGE / Unknown Collection / Unknown 06/01/2018 1:01 PM CDT 06/01/2018 1:18 PM CDT Balbina Munoz MD LAB - MICROBIOL OGY ORDERABLES Performing Organization Address [facility] de Phone Number [facility] [address] [place] [address], [facility] [phone] * CULTURE LEGIONELLA (06/01/2018 1:01 PM CDT) Only the most recent of3 resultswithin the time period is included. Culture Negative for Legionella TANIYA 06/08/2018 8:33 AM CDT [facility] Microbiology BRONCHIOLOALVEOLAR LAVAGE / Unknown Collection / Unknown 06/01/2018 1:01 PM CDT 06/01/2018 1:19 PM CDT Balbina Munoz MD LAB - MICROBIOL OGY ORDERABLES Performing Organization Address [facility] Co de Phone Number [facility] [address] [place] [address], [facility] [phone] * CYTOLOGY NON-SUPERVISOR RECORD PRESS PANEL (STL) (06/01/2018 12:37 PM CDT) Only the most recent of2 resultswithin the time period is included. Case Report Medical Cytology Report Case: [id number] Authorizing Provider: Balbina Munoz MD Collected: 06/01/2018 12:37 PM Ordering Location: [facility] Received: 06/01/2018 02:26 PM Pathologist: Joe Joshi MD Specimen: Bronchial Washings, wash 06/04/2018 2:09 PM CDT [facility] Specimen Adequacy Adequate cellularity for evaluation. 06/04/2018 2:09 PM CDT [facility] Final Diagnosis Bronchial Washing - Negative for malignancy - Acute inflammation 06/04/2018 2:09 PM T [facility] Clinical History Ground glass opacity on imaging of lung 06/04/2018 2:09 PM CDT [facility] Gross Description 1 cytospin pap and 1 cytospin GMS slides from 20 cc collection fluid 06/04/2018 2:09 PM [facility] Microscopic Description Review of 1 cytospin pap slide reveals few bronchial cells and marked acute inflamation in a background of thick dense mucoid material. A GMS stain does not show evidence of fungal organisms. ES/RD 06/04/2018 2:09 PM T [facility] Disclaimer The performance characteristics of all immunohistochemical and indirect immunofluorescence stains (if any) cited in this report were determined by the Histopathology Laboratory of [facility]. Some of these tests rely on the use of analyte-specific reagents and are subject to specific labeling requirements by the US Food and Drug Administration. Such tests were developed by the Histology Laboratory of [facility] and have not been cleared or approved by the FDA. The FDA has determined that such clearance and approval is not necessary. These tests are used for clinical purposes and should not be regarded as investigational or for research. This laboratory is certified under the Clinical Laboratory Improvement Amendments (CLIA) as qualified to perform high complexity clinical laboratory testing. This case has been personally reviewed and interpreted by the attending (teaching) pathologist. 06/04/2018 2:09 PM T [facility] Embedded Images 06/04/2018 2:09 PM T [facility] Pathology/Cytolo gy SPECIMEN FROM LUNG OBTAINED BY BRONCHIAL WASHING PROCEDURE / Unknown Collection / Unknown 06/01/2018 12:37 PM CDT 06/01/2018 2:26 PM CDT Comment:wash Balbina Munoz MD LAB - PATHOLOGY /CYTOLOGY ORDERABLES Performing Organization Address [facility]/ZIP Co de Phone Number [facility] [address] [facility] [place] [address], [facility] [phone] * VIRAL CULTURE INFLUENZA (06/01/2018 12:35 PM CDT) Viral Culture Rapid Influenza Comment 06/04/2018 2:12 PM CDT [facility] ([facility]) Comment: Negative: No Influenza A or B detected. Microbiology SPECIMEN FROM LUNG OBTAINED BY BRONCHIAL WASHING PROCEDURE / Unknown Collection / Unknown 06/01/2018 12:35 PM CDT 06/01/2018 1:22 PM CDT Narrative [facility] ([facility]) - 06/04/2018 2:12 PM CDT Performed at: [facility] [id number] Tread Builder: Maycol Coronado PhD, Phone: [phone] Balbina Munoz MD LAB - MICROBIOL OGY ORDERABLES Performing Organization Address [facility] Co de Phone Number [facility] ([facility]) [address] [place] [address] * CULTURE BRONCHIAL WASHING+GRAM STAIN (06/01/2018 12:35 PM CDT) Pathologist [facility] [place] Culture Light normal oropharyngeal susy TANIYA 06/03/2018 7:25 AM CDT [facility] Gram Stain Heavy Polymorphonuclear cells 06/03/2018 7:25 AM CDT [facility] Gram Stain Light Gram-positive cocci 06/03/2018 7:25 AM CDT [facility] Microbiology SPECIMEN FROM LUNG OBTAINED BY BRONCHIAL WASHING PROCEDURE / Unknown Collection / Unknown 06/01/2018 12:35 PM CDT 06/01/2018 1:21 PM CDT Balbina Munoz MD LAB - MICROBIOL OGY ORDERABLES Performing Organization Address City/[facility]/ZIP Co de Phone Number [facility] [address] [place] [address], [facility] [phone] * (ABNORMAL) CULTURE TISSUE+GRAM STAIN (06/01/2018 12:31 PM CDT) Culture Rare Streptococcus mitis/oralis(AA) TANIYA 06/04/2018 7:35 AM CDT [facility] Culture Rare Streptococcus agalactiae (Group B)(AA) 06/04/2018 7:35 AM CDT [facility] Culture Rare Georgina albicans(AA) TANIYA 06/04/2018 7:35 AM CDT [facility] Gram Stain Light White blood cells 06/04/2018 7:35 AM CDT [facility] Gram Stain No organisms seen 018 7:35 AM CDT [facility] Microbiology ENTIRE LUNG / Unknown Collection / Unknown 06/01/2018 12:31 PM CDT 06/01/2018 1:19 PM CDT Narrative [facility] - 06/04/2018 7:35 AM CDT Susceptibility testing of penicillin, other beta-lactam antibiotics, and vancomycin is not necessary for beta-hemolytic streptococci groups A,B,C and G because resistant strains have not been recognized. Balbina Munoz MD LAB - MICROBIOL OGY ORDERABLES [facility] [address] [place] [facility], [facility] [phone] * CULTURE BRONCHIAL BRUSHINGS QUANT (06/01/2018 12:04 PM CDT) Culture No growth TANIYA 06/03/2018 7:23 AM CDT [facility] Microbiology BRONCHIAL BRUSHINGS SPECIMEN / Unknown Collection / Unknown 06/01/2018 12:04 PM CDT 06/01/2018 1:21 PM CDT Balbina Munoz MD LAB - MICROBIOL OGY ORDERABLES [facility] [address] [place] [address], [facility] [phone] * BRONCHOSCOPY (06/01/2018 10:38 AM CDT) Report Endoscopy POC [facility] Advanced Diagnostic Bronchoscopy and Interventional Pulmonary Service __ _ Patient Name: Xavier Sosa Procedure Date: 06/01/2018 10:38 AM Date of : 1950 Attending MD: Balbina Munoz MD Age: 67 Room: Bronch Suite __ _ Providers: Balbina Munoz MD, Desmond Ross MD (Fellow), Jacek Deleon MD, MD (Fellow), Vi Arndt TENDER COORDINATOR, Jaki Mas TENDER COORDINATOR Referring MD: Procedure: Bronchoscopy Indications: Unresolving right upper lobe infiltrate Medicines: Fentanyl 125 mcg IV, Midazolam 5 mg IV Description of Procedure: Pre-Anesthesia Assessment: - A History and Physical has been performed. The patient's medications, allergies and sensitivities have been reviewed. - The risks and benefits of the procedure and the sedation options and risks were discussed with the patient. All questions were answered and informed consent was obtained. After obtaining informed consent, the [id number] bronchoscope was introduced through the mouth and advanced to the tracheobronchial tree of both lungs. The oropharynx appears normal. The vocal cords appear normal. Thesubglottic space is normal. The trachea is of normal caliber. The willy is sharp with thick pus-like secretions covering the willy extending to both main bronchi. The tracheobronchial tree was examined to at least the first subsegmental level. Bronchial mucosa was pale and covered with thick pus-like secrestions; there are no endobronchial lesions. All secretions suctioned out. Bronchoalveolar lavage was performed in the RUL and RML of the lung. 180 mL of fluid were instilled.20 mL were returned. The return was cloudy. Multiple specimens were obtained and pooled into one specimen, which was sent for analysis. Brushings of a lesion were obtained in the RUL with a cytology brush and micro brush. Two samples were obtained. Transbronchial lung biopsies were obtained from the RUL with fluoroscopic guidance.Prior to removal of bronchoscope all airways were patent and hemostasis was achieved. The patient tolerated the procedure well. The total duration of the procedure was 50 minutes. Total fluoroscopy time was 4 minutes, 13 seconds. Findings: as above Estimated Blood Loss: Estimated blood loss was minimal. Complications: No immediate complications __ _ Impression: 1) thick pus-like secretions throughout the airway. 2) BAL obtained from RUL and RML 3) Panora and biopsy obtained from RUL Recommendation: - Await BAL, biopsy and brushing results. - Follow up in clinic in 2 weeks. Attending Participation: I was present and participated during the entire procedure, including non-redding portions. Balbina Munoz _ Balbina Munoz MD 06/02/2018 11:20:36 AM This report has been signed electronically. Desmond Ross MD __ Jacek Deleon MD, MD Note Initiated On: 06/01/2018 10:38 AM Number of Addenda: 0 [facility] [address] [facility] [place] [address] [facility] 06/01/2018 10:3 8 AM CDT Jacek Deleon MD RESPIRATORY THERAPY ORDERABLES [facility] * STREP PNEUMONIAE ANTIGEN URINE (05/31/2018 9:12 PM CDT) Streptococcus pneumoniae Antigen Urine Negative Negative 06/01/2018 4:23 AM CDT [facility] Urine URINE / Unknown Collection / Unknown 05/31/2018 9:12 PM CDT 05/31/2018 9:36 PM CDT [facility]CROBI[facility] - 06/01/2018 4:23 AM CDT Patients who have received the Streptococcus pneumoniae vaccines may test positive in the 48 hours following vaccination. It is recommended to avoid testing within five days of receiving vaccination. Testing pediatric patients is discouraged because of their high rates of nasal colonization with Streptococcus pneumoniae leading to false positive results. Samples from patients taking antibiotics for more than 24 hours may cause false negatives. Sly Diaz MD LAB - MICROBIOLOGY Vahid BRAY Performing Organization Address [facility] Co de Phone Number [facility] [address] [place] [address], [facility] [phone] * LEGIONELLA ANTIGEN URINE (05/31/2018 9:12 PM CDT) Legionella Antigen Urine Negative Negative 06/01/2018 4:24 AM CDT [facility] Urine URINE / Unknown Collection / Unknown 05/31/2018 9:12 PM CDT 05/31/2018 9:36 PM CDT [facility]CROBI[facility] - 06/01/2018 4:24 AM CDT This assay detects Legionella pneumophila serogroup one (1) antigen. A negative test result does not rule out the possibility of Legionella infection due to other serogroups or species of Legionella. A positive result may indicate a recent or remote infection with serogroup 1. Sly Diaz MD LAB - MICROBIOLOGY O ASA Performing Organization Address City/[facility]/ZIP Co de Phone Number [facility] [address] [place] [address], [facility] [phone] * (ABNORMAL) CULTURE SPUTUM+GRAM STAIN (05/31/2018 5:54 PM CDT) Only the most recent of2 resultswithin the time period is included. Culture Moderate Haemophilus influenzae (beta-lactamase negative)(A) 06/03/2018 7:38 AM CDT [facility] Culture Light normal oropharyngeal susy TANIYA 06/03/2018 7:38 AM CDT [facility] Gram Stain <10 per low power field Squamous epithelial cells 06/03/2018 7:38 AM CDT [facility] Gram Stain >= 25 per low power field Polymorphonuclear cells 06/03/2018 7:38 AM CDT [facility] Gram Stain Light Gram-positive cocci 06/03/2018 7:38 AM CDT [facility] Gram Stain Light Gram-negative bacilli 06/03/2018 7:38 AM CDT [facility] Microbiology SPUTUM / Unknown Collection / Unknown 05/31/2018 5:54 PM CDT 05/31/2018 5:58 PM CDT Sly Diaz MD LAB - MICROBIOLOGY O RDERABLES [facility] [address] [place] [address], [facility] [phone] * PROCALCITONIN LEVEL (05/31/2018 1:30 PM CDT) PROCALCITONIN 0.06 <=0.10 ng/mL 05/31/2018 3:52 PM CDT [facility] Blood BLOOD SPECIMEN / Unknown Lab Venipuncture / Unknown 05/31/2018 1:30 PM CDT 05/31/2018 2:46 PM CDT Narrative [facility] - 05/31/2018 3:52 PM CDT The change in procalcitonin (PCT) concentration over time provides support in decision making on antibiotic discontinuation for suspected or confirmed septic patients. Follow-up samples should be tested once every 1-2 days based upon physician discretion taking into account the patient s evolution and progress. Consider discontinuation of antibiotic therapy if the PCT current is <= 0.5 ng/mL or if the delta PCT is > 80%. Duration of antibiotics should not be determined solely on PCT; established guidelines for the indication should be followed. PCT peak: Highest observed PCT concentration PCT current: Most recent PCT concentration Calculate delta PCT using the following equation: Delta PCT = PCT Peak PCT current X 100% PCT Peak The Change in Procalcitonin Calculator is available at [email or web address] If clinical picture has not improved and PCT remains high, reevaluate and consider treatment failure or other causes. Sly Diaz MD LAB - CHEMISTRY KIT CASTELLON Performing Organization Address [facility] Co de Phone Number [address] [phone] * CULTURE BLOOD (05/31/2018 11:04 AM CDT) Only the most recent of9 resultswithin the time period is included. [facility] Culture No growth day 5 TANIYA 06/05/2018 4:00 PM CDT [facility] Blood PERIPHERAL BLOOD / Unknown Lab Venipuncture / Unknown 05/31/2018 11:04 AM CDT 05/31/2018 11:15 AM CDT Ina Boyer MD LAB - MICROBIOLOGY ORDERABLES Performing Organization Address [facility] de Phone Number [facility] [address] [phone] * LDH BLOOD (05/31/2018 11:04 AM CDT) Only the most recent of25 resultswithin the time period is included. [facility] LDH Total 158 125 - 243 Units/L 05/31/2018 11:41 AM CDT [facility] Blood BLOOD SPECIMEN / Unknown Lab Venipuncture / Unknown 05/31/2018 11:04 AM CDT 05/31/2018 11:15 AM CDT Ina Boyer MD LAB - CHEMISTRY OR DERABLES Performing Organization Address [facility] [place] [address], [facility] [phone] * XR CHEST 2VW (05/24/2018 2:11 PM CDT) Only the most recent of3 resultswithin the time period is included. Anatomical Region Laterality Modality Chest Radiographic Saray ging 05/24/2018 2:12 PM CDT Impressions 05/24/2018 2:15 PM CDT FINDINGS/IMPRESSION: Emphysematous changes are noted. There is no focal consolidation, pleural effusion, or pneumothorax. The cardiomediastinal silhouette is normal. Dictated by Ina Wang MD (advertising vice president). Dr. CANDELARIA Oleary have personally reviewed and interpreted this examination/study. This report was electronically signed by CANDELARIA DOWLING on 05/24/2018 2:15 PM . Narrative 05/24/2018 2:15 PM CDT EXAMINATION: XR CHEST 2VW HISTORY: cough SOB and low grade fever COMPARISON: Comparison is made with a study from 01/07/2018. Procedure Note Candelaria Dowling, DO - 05/24/2018 EXAMINATION: XR CHEST 2VW HISTORY: cough SOB and low grade fever COMPARISON: Comparison is made with a study from 01/07/2018. FINDINGS/IMPRESSION: Emphysematous changes are noted. There is no focal consolidation,pleural effusion, or pneumothorax. The cardiomediastinal silhouette is normal. Dictated by Ina Wang MD (advertising vice president). Dr. CANDELARIA Oleary have personally reviewed and interpreted this examination/study. This report was electronically signed by CANDELARIA DOWLING on 05/24/2018 2:15 PM . Ina Boyer MD DIAGNOSTIC IMAGING ORDERABLES * (ABNORMAL) DIFFERENTIAL MANUAL (05/24/2018 12:52 PM CDT) Only the most recent of30 resultswithin the time period is included. WBC (corrected for NRBC) 6.6 10 3/uL 05/24/2018 1:18 PM CDT [facility] Total Cell Count 100 05/24/2018 1:18 PM CDT [facility] Neutrophils Absolute Manual 2.71 1.60 - 7.00 10 3/uL 05/24/2018 1:18 PM CDT [facility] Comment:(BANDS+SEGS) x WBC = NEUT # (ANC) Lymphocyte Absolute Manual 2.51 0.80 - 2.90 10 3/uL 05/24/2018 1:18 PM T [facility] Monocytes Absolute Manual 1.06(H) 0.14 - 0.66 10 3/uL 05/24/2018 1:18 PM [facility] Eosinophils Absolute Manual 0.07 0.00 - 0.22 10 3/uL 05/24/2018 1:18 PM [facility] Basophil Absolute Manual 0.13(H) 0.00 - 0.06 10 3/uL 05/24/2018 1:18 PM [facility] Band % Manual 20(H) 0 - 10 % 05/24/2018 1:18 PM [facility] Neutrophil % Manual 21(L) 30 - 60 % 05/24/2018 1:18 PM [facility] Lymphocyte % Manual 38 20 - 45 % 05/24/2018 1:18 PM [facility] Monocytes % Manual 16(H) 2 - 10 % 05/24/2018 1:18 PM [facility] Eosinophils % Manual 1 1 - 6 % 05/24/2018 1:18 PM [facility] Basophils % Manual 2 0 - 3 % 05/24/2018 1:18 PM [facility] Atypical Lymphocyte % Manual 2(H) 0 % 05/24/2018 1:18 PM [facility] Platelet Estimate Adequate Adequate 05/24/2018 1:18 PM [facility] RBC Morphology Normal 05/24/2018 1:18 PM [facility] Blood BLOOD SPECIMEN / Unknown Lab Venipuncture / Unknown 05/24/2018 12:52 PM CDT 05/24/2018 12:56 PM CDT Ina Boyer MD LAB - HEMATOLOGY O RDERABLES [facility] [address] [place] [address] * COMPLETE PFT W/WO BRONCHODILATOR (05/17/2018 2:25 PM CDT) Impressions Jeffery Vega MD - 05/17/2018 2:25 PM CDT [facility] DEPARTMENT OF PULMONARY, CRITICAL CARE, AND SLEEP MEDICINE PULMONARY FUNCTION TESTS Xavire R Edgar 05/09/2018 INTERPRETATION Please see technologist's comments mentioned above. SPIROMETRY: Forced vital capacity is normal. FEV1 is low. FEV1/FVC ratio is low. There is a significant response to bronchodilator administration. The inspection of the patient's flow-volume loops shows normal configuration of the inspiratory limb. The expiratory limb shows concavity suggesting obstructive ventilatory defect. LUNG VOLUMES: TLC is high RV is high DLCO: Diffusing capacity adjusted for Hb and COHb is within normal limits. AIRWAY RESISTANCE: The airway resistance is susan and the specific conductance is low IMPRESSION: 1. Moderate obstructive ventilatory defect. 2. There is a significant response to bronchodilator administration. 3. Mild hyperinflation and severe air trapping. 4. The airway resistance is normal and the specific conductance is low. 5. Compared to previous study from 03/02/2017, there is no significant change. Manan Schulte MD I have personally reviewed the pulmonary function test data and made adjustment to the interpretation where necessary. Jeffery Vega MD 05/17/2018 Narrative Jeffery Vega MD - 05/17/2018 2:25 PM CDT Manan Schulte MD 05/09/2018 7:40 AM Procedure Note Manan Schulte MD - 05/04/2018 12:57 PM CDT Images from the original note were not included. Jamie Arboleda MD RESPIRATORY THERAPY ORDERABLES * URIC ACID BLOOD (04/29/2018 11:54 AM CDT) Only the most recent of10 resultswithin the time period is included. Uric Acid 6.6 2.6 - 7.2 mg/dL 04/29/2018 12:35 PM CDT [facility] Blood BLOOD SPECIMEN / Unknown Venipuncture / Unknown 04/29/2018 11:54 AM CDT 04/29/2018 12:02 PM CDT Ina Boyer MD LAB - CHEMISTRY OR DERABLES [address] [phone] * (ABNORMAL) PROTEIN ELECTROPHORESIS WO INTERP BLOOD (01/28/2018 10:19 AM AGENCY SERVICE COORDINATOR) Only the most recent of22 resultswithin the time period is included. Interpretation Serum PE Abnormal Pattern(A) Normal Pattern [facility] Comment: Serum protein electrophoresis shows characteristic bands corresponding to albumin, alpha and beta globulins and polyclonal immunoglobulins. There is a band of restricted electrophoretic mobility in the gamma region previously identified as an IgM [place] monoclonal immunoglobulin. The monoclonal immunoglobulin concentration (0.1 g/dL) has not changed from a previous value of 0.1 g/dL measured in 10/2017. Elma Dupont MD *The electrophoresis pattern and the interpretation have been reviewed and verified by the teaching physician. Protein Total 5.5(L) 6.0 - 8.3 g/dL [facility] Albumin 4.0 3.3 - 5.6 g/dL [facility] Alpha-1 Globulins 0.2 0.1 - 0.3 g/dL [facility] Alpha-2 Globulins 0.6 0.5 - 1.0 g/dL [facility] Beta Globulins 0.6 0.6 - 1.1 g/dL [facility] Gamma Globulins 0.2(L) 0.6 - 1.6 g/dL [facility] Monoclonal Component(s) 0.1(H) None Detected g/dL [facility] Blood specimen (specimen) BLOOD SPECIMEN / Unknown 01/28/2018 10:19 AM AGENCY SERVICE COORDINATOR 01/28/2018 10:32 AM AGENCY SERVICE COORDINATOR Ina Boyer MD LAB - [place] [address], [facility] [phone] * (ABNORMAL) IMMUNOFIXATION (01/28/2018 10:19 AM AGENCY SERVICE COORDINATOR) Only the most recent of12 resultswithin the time period is included. Immunofixation Serum Abnormal Pattern(A) Normal Pattern [facility] Comment: Serum immunofixation electrophoresis shows polyclonal IgG and IgA immunoglobulins. Serum immunofixation electrophoresis identifies an IgM [place] monoclonal immunoglobulin. Elma Dupont MD *The electrophoresis pattern and the interpretation have been reviewed and verified by the teaching physician. Blood specimen (specimen) BLOOD SPECIMEN / Unknown 01/28/2018 10:19 AM AGENCY SERVICE COORDINATOR 01/28/2018 10:32 AM AGENCY SERVICE COORDINATOR Ina Boyer MD LAB - CHEMISTRY OR DERABLES [facility] [address] [phone] * ZINC BLOOD (06/23/2017 10:04 AM CDT) Zinc Blood 112 56 - 134 ug/dL [facility] [place]) Comment:Detection Limit = 5 Blood specimen (specimen) BLOOD SPECIMEN / Unknown 06/23/2017 10:04 AM CDT 06/23/2017 10:43 AM CDT Narrative [facility] ([facility]) - 06/25/2017 6:11 AM CDT Performed at: - Lab[address] [id number] Tread Builder: Eugene Boswell MD, Phone: [phone] Ina Boyer MD LAB - CHEMISTRY OR DERABLES Performing Organization Address [facility] Co de Phone Number [facility] * COPPER BLOOD (06/23/2017 10:04 AM CDT) Copper 123 72 - 166 ug/dL [facility] ([facility] [place] Comment:Detection Limit = 5 Blood specimen (specimen) BLOOD SPECIMEN / Unknown 06/23/2017 10:04 AM CDT 06/23/2017 10:43 AM CDT Narrative [facility] ([facility]) - 06/25/2017 6:11 AM CDT Performed at: - [address] [id number] Tread Builder: Eugene Boswell MD, Phone: [phone] Ina Boyer MD LAB - CHEMISTRY OR DERABLES Performing Organization Address City/[facility] de Phone Number [facility]) * (ABNORMAL) FOLATE (06/23/2017 10:04 AM CDT) Only the most recent of2 resultswithin the time period is included. Pathologist [facility] Folate 36.7(H) 7.0 - 31.4 ng/mL [facility] Comment:Result obtained by jag leone. Blood specimen (specimen) BLOOD SPECIMEN / Unknown 06/23/2017 10:04 AM CDT 06/23/2017 10:27 AM CDT Ina Boyer MD LAB - CHEMISTRY OR DERABLES Performing Organization Address [facility] de Phone Number [address] [phone] * BK VIRUS PCR QUANTITATIVE URINE (05/21/2017 9:55 AM CDT) Only the most recent of4 resultswithin the time period is included. Pathologist [facility] BK Virus copy/mL Urine Negative Negative copies/mL [facility] ([facility]) Comment: No BK DNA detected. The quantitative range of this assay is 200 to 10 million copies/mL. This test was developed and its performance characteristics determined by [facility]. It has not been cleared or approved by the Food and Drug Administration. The FDA has determined that such clearance or approval is not necessary. BK Virus log copy/mL Urine TNP [id number] [facility]) Comment: Unable to calculate result since non-numeric result obtained for component test. Urine specimen (specimen) (Urine, unspecified source) 05/21/2017 9:55 AM CDT 05/21/2017 10:43 AM CDT Narrative [facility]) - 05/26/2017 11:12 AM CDT Performed at: [address] [place] [id number] Tread Builder: Eugene Boswell MD, Phone: [phone] Ina Boyer MD LAB - MICROBIOLOGY ORDERABLES Performing Organization Address The [facility] Co de Phone Number [facility]) * (ABNORMAL) HEPATIC FUNCTION PANEL (03/11/2017 9:44 AM CDT) Protein Total 6.3(L) 6.4 - 8.4 g/dL [facility]) Albumin 4.3 3.6 - 5.1 g/dL [facility] Globulin 2.0(L) 2.2 - 4.0 g/dL (calc) [facility] Albumin/Globulin Ratio 2.2 0.9 - 2.3 (calc) [facility] Bilirubin Total 0.7 0.2 - 1.2 mg/dL [facility] Bilirubin Direct 0.2 < OR = 0.2 mg/dL [facility] Bilirubin Indirect 0.5 0.2 - 1.2 mg/dL (calc) [facility] Alkaline Phosphatase 93 40 - 115 U/L [facility]) AST 27 10 - 35 U/L [facility] ALT 35 9 - 46 U/L [facility]) Comment: REPORT COMMENT: FASTING:NO Test Performed at: [employer] [facility] [id number] [place] [address] EUGENE REYNOSO DO,MPH Blood specimen (specimen) BLOOD SPECIMEN / Unknown 03/11/2017 9:44 AM CDT 03/11/2017 9:45 AM CDT Leona Tay DERRICK ENGINEER-KILN PLACER LAB - CHEMIS TRY ORDERABLES [facility] ([facility]) * COMPLETE PFT W/WO BRONCHODILATOR (03/02/2017 9:04 AM CDT) Impressions [facility] RAD[facility] - 03/02/2017 9:04 AM CDT [facility] DEPARTMENT OF PULMONARY, CRITICAL CARE, AND SLEEP MEDICINE PULMONARY FUNCTION TESTS Xavier Sosa 66 y.o. BMI 33.0. 03/02/2017 INTERPRETATION Please see technologist's comments mentioned above. SPIROMETRY: Forced vital capacity is normal. FEV1 is reduced, but normalizes after bronchodilators. FEV1/FVC ratio is reduced. There is a significant response to bronchodilator administration. The inspection of the patient's flow-volume loops shows normal configuration of the inspiratory limbs and scooping of the expiratory limbs. LUNG VOLUMES: Lung volumes by body plethysmography show increased residual volume and total lung capacity. DLCO: Diffusing capacity adjusted for Hb is within normal limits. AIRWAY RESISTANCE: The airway resistance is normal and the specific conductance is reduced. IMPRESSION: 1. Non-specific ventilatory limitation with a significant response to bronchodilator administration. 3. Severe air trapping with hyperinflation. In comparison to the test performed on 12/08/2016, there was significant increase in FEV1 by 400 ml, increase in FVC by 636 ml and increase in DLCO by 6.16 ml/min/mmHg. There was no significant change in TLC. Oz Echevarria MD Pulmonary & Critical Care Fellow Division of Pulmonary, Critical Care and Sleep Medicine [facility] I have reviewed the pulmonary function test data and made adjustment to the interpretation where necessary. Abel Hatfield MD 03/10/2017 Narrative Procedure Note ProviderAna Rosa MD - 05/07/2018 IMPRESSION [facility] DEPARTMENT OF PULMONARY, CRITICAL CARE, AND SLEEP MEDICINE PULMONARY FUNCTION TESTS Xavier Sosa 66 y.o. BMI 33.0. 03/02/2017 INTERPRETATION Please see technologist's comments mentioned above. SPIROMETRY: Forced vital capacity is normal. FEV1 is reduced, but normalizes afterbronchodilators. FEV1/FVC ratio is reduced. There is a significant response to bronchodilator administration. The inspection of the patient's flow-volume loops shows normalconfiguration of the inspiratory limbs and scooping of the expiratorylimbs. LUNG VOLUMES: Lung volumes by body plethysmography show increased residualvolume and total lung capacity. DLCO: Diffusing capacity adjusted for Hb is within normal limits. AIRWAY RESISTANCE: The airway resistance is normal and the specificconductance is reduced. IMPRESSION: 1. Non-specific ventilatory limitation with a significant response tobronchodilator administration. 3. Severe air trapping with hyperinflation. In comparison to the test performed on 12/08/2016, there was significantincrease in FEV1 by 400 ml, increase in FVC by 636 ml and increase in DLCOby 6.16 ml/min/mmHg. There was no significant change in TLC. Oz Echevarria MD Pulmonary & Critical Care Fellow Division of Pulmonary, Critical Care and Sleep Medicine [facility] I have reviewed the pulmonary function test data and made adjustment tothe interpretation where necessary. Abel Hatfield MD 03/10/2017 Jamie Arboleda MD RESPIRATORY THERAPY ORDERABLES [facility] * CD4 (ABSOLUTE T4) (02/26/2017 9:58 AM CDT) Only the most recent of4 resultswithin the time period is included. Pathologist [facility] [place] T-Allen Cells (CD4) Accession No: [id number] Specimen: Blood Reference:[id number] Reason for test: CD4 Requested Markers: 3 Flow Cytometry Results: Differential Result (%) Comment WBC COUNT/uL 3700 %LYMPHOCYTES 39 LYMPH COUNT/uL 1443 CD4 COUNT/uL 231 Cell Region A: Lymphocytes Surface Marker Result (%) Abs Count (cells/ul) CD3 84 1212 CD3+CD4+ 16 231 CD3+CD8+ 67 967 CD4:CD8 RATIO 0.24 Peripheral Blood Lymphocyte Adult Normal Reference Range (%) except CD4/CD8 CD1 0 CD24 11-19 CD2 74-94 CD25 5-17 CD3 54-94 CD33 0-7 CD4 40-56 CD34 0-3 CD4/CD8 (0.7-2.7) CD38 15-55 CD5 57-93 CD45 97-100 CD7 58-82 CD56 6-26 CD8 17-45 CD57 0-26 CD10 1-9 CD117 0 CD11b 14-42 CD138 0-1 CD11c 4-14 IgG 0-7 CD13 0-4 IgM 4-16 CD14 0-11 IgA 2-6 CD15 0-1 IgD 3-15 CD16 0-23 [place] 3-12 CD19 8-24 Lambda 3-7 CD20 7-17 HLA-DR 9-25 CD23 2-16 TdT 0 Test performed at [facility], [address] [place] [id number] This test was developed and its performance characteristics determined by [facility]. It has not been cleared by the U.S. Food and Drug Administration. The FDA has determined that such clearance or approval is not necessary. This test is used for clinical purposes. It should not be regarded as investigational or for research. This laboratory is regulated under the Clinical Laboratory Improvement Amendments of 1998 (CLIA) as qualified to perform high complexity clinical testing. By law [place], CD4 lymphocyte counts on patients with HIV infection must be reported by the physician to the [facility] authority. [facility] ([facility]) Other (qualifier value) 02/26/2017 9:58 AM CDT 02/26/2017 10:13 AM CDT Ina Boyer MD LAB - HEMATOLOGY O ASA Performing Organization Address City/[facility]/ZIP Co de Phone Number [facility] LAB ([facility]) * PATHOLOGY/GENETICS HISTORICAL-ONBASE (01/12/2017) Only the most recent of4 resultswithin the time period is included. 01/12/2017 Historical Provider LAB - CHEMISTRY O ASA Performing Organization Address City/[facility] Co de Phone Number [address] * HOLD SPECIMEN DNA (01/05/2017 2:00 PM AGENCY SERVICE COORDINATOR) Only the most recent of4 resultswithin the time period is included. DNA Hold Specimen Accession No: [id number] Specimen: Bone Marrow Reference: [id number] Test: HemOnc Isolation Only RESULT DNA was isolated from the bone marrow specimen and quantified. 200 uL of DNA was isolated with a spectrophotometric concentration of 30 ng/uL and an A260/280 = 1.86. INTERPRETATION No specific testing was performed at this time. COMMENT The DNA will be stored for potential future testing. This test was developed and its performance characteristics determined by the [facility] at [facility]. It has not been cleared or approved by the U.S. Food and Drug Administration. The FDA has determined that such clearance or approval is not necessary. This test is used for clinical purposes. It should not be regarded as investigational or for research. This laboratory is certified under the Clinical Laboratory Improvement Amendments of 1988 (CLIA-88) as qualified to perform high complexity clinical laboratory testing. Test performed at [address] PATHOLOGY LAB (CLIF) Other (qualifier value) 01/05/2017 2:00 PM AGENCY SERVICE COORDINATOR 01/05/2017 2:17 PM AGENCY SERVICE COORDINATOR Historical Provider MD LAB - PATHOLOGY/C YTOLOGY ORDERABLES Performing Organization Address City/[facility] Co de Phone Number [facility] ([facility]) * CYTOGENETICS CANCER PANEL (01/05/2017 2:00 PM AGENCY SERVICE COORDINATOR) Only the most recent of8 resultswithin the time period is included. [facility] Chrom KIM-Bone Marrow See scanned report. [facility] REF LAB NON INTERF Bone marrow source (specimen) BONE MARROW SPECIMEN / Unknown 01/05/2017 2:00 PM AGENCY SERVICE COORDINATOR 01/05/2017 2:17 PM AGENCY SERVICE COORDINATOR Historical Provider MD LAB - PATHOLOGY/C YTOLOGY ORDERABLES Performing Organization Address [facility] de Phone Number [facility] REF LAB NON INTERF * CHROMOSOME ANALYSIS PANEL (01/05/2017 2:00 PM AGENCY SERVICE COORDINATOR) Only the most recent of4 resultswithin the time period is included. [facility] Chromosome Analysis FISH See scanned report. [facility] REF LAB NON INTERF Blood specimen (specimen) 01/05/2017 2:00 PM AGENCY SERVICE COORDINATOR 01/05/2017 2:17 PM AGENCY SERVICE COORDINATOR Historical Provider MD LAB - PATHOLOGY/C YTOLOGY ORDERABLES Performing Organization Address [facility] de Phone Number [facility] REF LAB NON INTERF * FLOW CYTOMETRY PANEL (01/05/2017 2:00 PM AGENCY SERVICE COORDINATOR) Only the most recent of5 resultswithin the time period is included. [facility] Flow Cytometry Results Accession No: [id number] Specimen: Bone Marrow Reference: [id number] Reason for test: Waldenstrom Macroglobulinemia Markers: 14 DIAGNOSIS: BONE MARROW, FLOW CYTOMETRIC IMMUNOPHENOTYPIC ANALYSIS: - NO EVIDENCE OF NON-HODGKIN LYMPHOMA, HIGH GRADE MYELOID NEOPLASM, OR PLASMA CELL DYSCRASIA - SEE DESCRIPTION Flow Cytometry Results: Differential Result (%) Comment FLOW CELL COUNT/uL 4100 TOTAL VIABILITY% 94 %LYMPHOCYTES 28 Dim CD45 Region 1 %MONOCYTES 8 %GRANULOCYTES 60 %PLASMA CELLS Fewer than 35 events (average) were collected in this region Lymphocyte Region Surface Marker Result (%) Catawba+CD19+ 0 Lambda+CD19+ 0 CD3 85 CD5 84 CD10 0 CD19 0 CD20 0 CD23 0 CD34 0 CD45 100 Plasma cells Surface Marker Result (%) cyKAPPA+CD138+ 33 cyLAMBDA+CD138+ 33 CD10 14 CD19 100 CD20 0 CD38 13 CD56 67 CD117 33 CD138 13 Peripheral Blood Lymphocyte Adult Normal Reference Range (%) except CD4/CD8 CD1 0 CD24 11-19 CD2 74-94 CD25 5-17 CD3 54-94 CD33 0-7 CD4 40-56 CD34 0-3 CD4/CD8 (0.7-2.7) CD38 15-55 CD5 57-93 CD45 97-100 CD7 58-82 CD56 6-26 CD8 17-45 CD57 0-26 CD10 1-9 CD117 0 CD11b 14-42 CD138 0-1 CD11c 4-14 IgG 0-7 CD13 0-4 IgM 4-16 CD14 0-11 IgA 2-6 CD15 0-1 IgD 3-15 CD16 0-23 [place] 3-12 CD19 8-24 Lambda 3-7 CD20 7-17 HLA-DR 9-25 CD23 2-16 TdT 0 Peripheral Blood Monocyte Region Adult Normal Reference Range (%) CD1 0-2 CD24 0-28 CD2 0-28 CD25 5-17 CD3 0-13 CD33 74-100 CD4 20-100 CD34 0-5 CD5 0-16 CD38 65-100 CD7 0-3 CD45 97-100 CD8 0-16 CD56 0-18 CD10 11-39 CD57 0-8 CD11b 84-100 CD117 0-1 CD11c 89-100 CD138 0-1 CD13 63-100 IgG 46-98 CD14 79-99 IgM 0-15 CD15 0-37 IgA 0-16 CD16 0-34 IgD 0-20 CD19 0-48 [place] 0-6 CD20 0-10 Lambda 0-7 CD23 0-13 HLA-DR 67-100 TdT 0 * The established laboratory minimum viability is 70%. Values below this minimum may result in the failure to find an abnormal population of cells. Test performed at [facility], [address] [place] [id number] This test was developed and its performance characteristics determined by [facility]. It has not been cleared by the U.S. Food and Drug Administration. The FDA has determined that such clearance or approval is not necessary. This test is used for clinical purposes. It should not be regarded as investigational or for research. This laboratory is regulated under the Clinical Laboratory Improvement Amendments of 1998 (CLIA) as qualified to perform high complexity clinical testing. IMMUNOPHENOTYPE AND MORPHOLOGY: The bone marrow aspirate specimen has a viability of 94%. The lymphocyte, dim CD45, monocyte, granulocyte, and plasma cell zepeda are normal in relative proportion. No monoclonal B-cell or expanded T-cell population is identified. Blasts are not increased in number (less than 1% of all events). A very small (significantly less than 1%) population of polytypic plasma cells is identified. A bone marrow aspirate smear is reviewed for air quality consultant purposes. The bone marrow shows no evidence of non-Hodgkin lymphoma, high grade myeloid neoplasm, or plasma cell dyscrasia. Correlation with additional clinical information and the bone marrow biopsy specimen ([id number]) is required. KR This case has been personally reviewed and interpreted by the attending (teaching) pathologist. Final Diagnosis performed by Katelynn Clancy MD. Electronically signed 01/06/2017 [facility] ([facility]) Other (qualifier value) BONE MARROW SPECIMEN / Unknown 01/05/2017 2:00 PM AGENCY SERVICE COORDINATOR 01/05/2017 2:17 PM AGENCY SERVICE COORDINATOR Historical Provider MD LAB - HEMATOLOGY ORDERABLES [facility] LAB ([facility]) * CT CHEST ABDOMEN PELVIS W CONT (01/05/2017 11:54 AM AGENCY SERVICE COORDINATOR) Only the most recent of3 resultswithin the time period is included. Anatomical Region Laterality Modality Chest, Abdomen, Pelvis Other Impressions 01/06/2017 5:13 PM AGENCY SERVICE COORDINATOR IMPRESSION: 1. Interval decrease in size of retroperitoneal lymph nodes since the prior exam, now measuring less than 1 cm. 2. Interval resolution of the previously seen focal ground glass opacity in the right lower lobe. Dictated by Pedro Mijares MD (advertising vice president). I, Dr. DANIELA ASCENCIO M.D. have personally reviewed and interpreted this examination/study. This report was electronically signed by DANIELA ASCENCIO M.D. on 01/06/2017 5:13 PM . Narrative 01/06/2017 5:13 PM AGENCY SERVICE COORDINATOR EXAMINATION: Computed tomography (CT) of the chest, abdomen, and pelvis with contrast HISTORY: 66-year-old male with Waldenstrom's macroglobulinemia, status post stem cell transplant on 09/22/2016. TECHNIQUE: CT of the chest, abdomen, and pelvis was performed after the uneventful administration of 100 mL of Omnipaque 350 intravenous contrast according to standard protocol. COMPARISON: Comparison is made with CT chest abdomen pelvis with contrast dated 08/19/2016. FINDINGS: Chest: There is a left-sided three-vessel aortic arch. The aorta and main pulmonary arteries are normal in course and caliber. The coronary arteries and aorta are atherosclerotic. Mild upper lobe predominant centrilobular emphysema is present. Minimal right lower lung linear atelectasis is present. The lungs are clear of focal consolidation. No pleural effusion or focal pleural thickening is identified. There is no evidence of pneumothorax. No suspicious pulmonary nodule is identified. The trachea is patent and midline. The heart size is normal. No pericardial effusion is present. No mediastinal, hilar, supraclavicular, or axillary lymphadenopathy is seen. The thyroid gland enhances homogenously. Abdomen/pelvis: A few calcified granulomas are identified within the liver. The liver otherwise enhances homogenously. The gallbladder is normal without evidence of wall thickening, pericholecystic fluid, or gallstones. The intrahepatic and extrahepatic bile ducts are nondilated. The spleen enhances homogenously without focal lesion. The pancreas and adrenal glands are normal. The kidneys enhance symmetrically. There is no evidence of renal calculus or hydronephrosis. The esophagus and stomach appear normal. The small bowel and large bowel are normal in caliber without evidence of wall thickening or obstruction. The appendix appears normal without appendicolith or surrounding inflammatory changes. No free air or free fluid is identified within the abdomen. Multiple retroperitoneal and mesenteric lymph nodes are decreased in size since 08/19/2016, and all measure less than 1 cm. For reference, a previously described 1.0 cm periaortic lymph node measures 6 mm in short axis (series 3, image 132). The urinary bladder is mildly distended and appears normal. The prostate is partially calcified. No free fluid is seen within the pelvis. There is no pelvic lymphadenopathy. Bone windows demonstrate no suspicious lytic or blastic lesions. The visible osseous structures are intact. Multilevel degenerative changes are noted in the spine. Procedure Note Daniela Ascencio MD - 02/26/2018 EXAMINATION: Computed tomography (CT) of the chest, abdomen, and pelviswith contrast HISTORY: 66-year-old male with Waldenstrom's macroglobulinemia, statuspost stem cell transplant on 09/22/2016. TECHNIQUE: CT of the chest, abdomen, and pelvis was performed after theuneventful administration of 100 mL of Omnipaque 350 intravenous contrastaccording to standard protocol. COMPARISON: Comparison is made with CT chest abdomen pelvis with contrastdated 08/19/2016. FINDINGS: Chest: There is a left-sided three-vessel aortic arch. The aorta and mainpulmonary arteries are normal in course and caliber. The coronary arteriesand aorta are atherosclerotic. Mild upper lobe predominant centrilobular emphysema is present. Minimalright lower lung linear atelectasis is present. The lungs are clear offocal consolidation. No pleural effusion or focal pleural thickening isidentified. There is no evidence of pneumothorax. No suspicious pulmonary nodule is identified. The trachea ispatent and midline. The heart size is normal. No pericardial effusion is present. Nomediastinal, hilar, supraclavicular, or axillary lymphadenopathy is seen.The thyroid gland enhances homogenously. Abdomen/pelvis: A few calcified granulomas are identified within the liver. The liverotherwise enhances homogenously. The gallbladder is normal withoutevidence of wall thickening, pericholecystic fluid, or gallstones. Theintrahepatic and extrahepatic bile ducts are nondilated. The spleen enhances homogenously without focal lesion. Thepancreas and adrenal glands are normal. The kidneys enhance symmetrically.There is no evidence of renal calculus or hydronephrosis. The esophagus and stomach appear normal. The small bowel and large bowelare normal in caliber without evidence of wall thickening or obstruction.The appendix appears normal without appendicolith or surroundinginflammatory changes. No free air or free fluid is identified within the abdomen. Multiple retroperitoneal andmesenteric lymph nodes are decreased in size since 08/19/2016, and allmeasure less than 1 cm. For reference, a previously described 1.0 cmperiaortic lymph node measures 6 mm in short axis (series 3, image 132). The urinary bladder is mildly distended and appears normal. The prostateis partially calcified. No free fluid is seen within the pelvis. There isno pelvic lymphadenopathy. Bone windows demonstrate no suspicious lytic or blastic lesions. Thevisible osseous structures are intact. Multilevel degenerative changes arenoted in the spine. IMPRESSION IMPRESSION: 1. Interval decrease in size of retroperitoneal lymph nodes since theprior exam, now measuring less than 1 cm. 2. Interval resolution of the previously seen focal ground glass opacityin the right lower lobe. Dictated by Pedro Mijares MD (advertising vice president). I, Dr. DANIELA ASCENCIO M.D. have personally reviewed and interpreted thisexamination/study. This report was electronically signed by DANIELA ASCENCIO M.D. on 01/06/20175:13 PM . Ina Boyer MD CT ORDERABLES * COMPLETE PFT W/WO BRONCHODILATOR (12/08/2016) Impressions [facility] RADI[facility] - 12/08/2016 12:00 AM [facility] DEPARTMENT OF PULMONARY, CRITICAL CARE, AND SLEEP MEDICINE PULMONARY FUNCTION TESTS Xavier Soas 66 y.o. BMI 31.7. 12/09/2016 INTERPRETATION Please see technologist's comments mentioned above. SPIROMETRY: FEV1/FVC ratio is decreased . FEV1 is decreased. Forced vital capacity is normal. There is no significant response to bronchodilator administration. Inspection of the patient's flow-volume loops shows normal configuration of the inspiratory limbs and increased concavity of the expiratory limbs. LUNG VOLUMES: Lung volumes by body plethysmography reveal an increased RV and TLC. DLCO: Diffusing capacity adjusted for Hb and COHb is reduced. AIRWAY RESISTANCE: The airway resistance is normal. The prebronchodilator specific conductance is reduced. IMPRESSION: 1. Moderate obstructive ventilatory limitation. 2. There is no significant response to bronchodilator administration. This does not preclude the use of bronchodilator therapy if clinically indicated. 3. Moderate air trapping with hyperinflation. 4. Mildly decreased adjusted DLCO. In comparison to the prior study on 2016, there has been a significant decrease in FVC by 600ml, in TLC by 810 ml and in DLCO by 5.5 ml/min/kg. There was no significant change in FEV1. Cornelio Jimenez MD Pulmonary / Critical Care Fellow Division of Pulmonary, Critical Care, & Sleep Medicine [facility] I have reviewed the pulmonary function test data and made adjustment to the interpretation where necessary. Abel Hatfield MD 12/15/2016 Narrative Procedure Note Provider, MD Ana Rosa - 05/07/2018 IMPRESSION [facility] DEPARTMENT OF PULMONARY, CRITICAL CARE, AND SLEEP MEDICINE PULMONARY FUNCTION TESTS Xavier Sosa 66 y.o. BMI 31.7. 12/09/2016 INTERPRETATION Please see technologist's comments mentioned above. SPIROMETRY: FEV1/FVC ratio is decreased . FEV1 is decreased. Forced vital capacity is normal. There is no significant response to bronchodilator administration. Inspection of the patient's flow-volume loops shows normal configurationof the inspiratory limbs and increased concavity of the expiratorylimbs. LUNG VOLUMES: Lung volumes by body plethysmography reveal an increased RVand TLC. DLCO: Diffusing capacity adjusted for Hb and COHb is reduced. AIRWAY RESISTANCE: The airway resistance is normal. The prebronchodilatorspecific conductance is reduced. IMPRESSION: 1. Moderate obstructive ventilatory limitation. 2. There is no significant response to bronchodilator administration.This does not preclude the use of bronchodilator therapy if clinicallyindicated. 3. Moderate air trapping with hyperinflation. 4. Mildly decreased adjusted DLCO. In comparison to the prior study on 2016, there has been a significantdecrease in FVC by 600ml, in TLC by 810 ml and in DLCO by 5.5 ml/min/kg.There was no significant change in FEV1. Cornelio Jimenez MD Pulmonary / Critical Care Fellow Division of Pulmonary, Critical Care, & Sleep Medicine [facility] I have reviewed the pulmonary function test data and made adjustment tothe interpretation where necessary. Abel Hatfield MD 12/15/2016 Jamie Arboleda MD RESPIRATORY THERAPY ORDERABLES [facility] * IR CENTRAL LINE REMOVAL (10/27/2016 1:41 PM AGENCY SERVICE COORDINATOR) Anatomical Region Laterality Modality Other Narrative 10/27/2016 3:09 PM AGENCY SERVICE COORDINATOR This is an interventional nephrology procedure performed on October 27, 2016 Blue Split Trimmer: Migel Barrera Procedure : 1. Removal of tunneled central venous catheter. This patient was referred for removal of a tunneled central venous catheter which was no longer needed. Following informed consent the patient was taken to the angiography holding area where they were noted to have a right internal jugular tunneled central venous catheter. The existing dressing was removed, the skin was cleansed with chlorhexidine and sterile drapes were applied. Local anesthetic was infiltrated around the exit site and the area of the subcutaneous cuff. The exit site suture was removed and the using blunt and sharp dissection the catheter was freed from surrounding tissues and with traction was brought to the surface. Holding pressure at the venotomy site in the neck the catheter was removed in its entirety. Hemostasis was secured with pressure. A sterile occlusive dressing was then applied. The patient tolerated the procedure without difficulty. I was present throughout the procedure. This report was electronically signed by MIGEL BARRERA M.D. on 10/27/2016 3:09 PM . Procedure Note Migel Barrera MD - 02/27/2018 This is an interventional nephrology procedure performed on September Blue Split Trimmer: Migel Barrera Procedure : 1. Removal of tunneled central venous catheter. This patient was referred for removal of a tunneled central venouscatheter which was no longer needed. Following informed consent the patient was taken to the angiographyholding area where they were noted to have a right internal jugulartunneled central venous catheter. The existing dressing was removed, theskin was cleansed with chlorhexidine and sterile drapes were applied. Local anesthetic was infiltrated around theexit site and the area of the subcutaneous cuff. The exit site suture wasremoved and the using blunt and sharp dissection the catheter was freedfrom surrounding tissues and with traction was brought to the surface. Holding pressure at the venotomy sitein the neck the catheter was removed in its entirety. Hemostasis wassecured with pressure. A sterile occlusive dressing was then applied. The patient tolerated the procedure without difficulty. I was present throughout the procedure. This report was electronically signed by MIGEL BARRERA M.D. on 10/27/20163:09 PM . Yesy Dias DERRICK ENGINEER-KILN PLACER IR ORDERABLES * CULTURE URINE (10/27/2016 10:52 AM AGENCY SERVICE COORDINATOR) Only the most recent of2 resultswithin the time period is included. Culture Urine No Growth of >100 CFU/ml after 48 Hours [facility] Urine specimen (specimen) URINE / Unknown 10/27/2016 10:52 AM AGENCY SERVICE COORDINATOR 10/27/2016 10:52 AM AGENCY SERVICE COORDINATOR Narrative [facility] - 10/29/2016 10:57 AM AGENCY SERVICE COORDINATOR Specimen Type->Urine Yesy Mario Arun BARONN-KILN PLACER LAB - MICROBIOL OGY ORDERABLES [address] [phone] * (ABNORMAL) URINALYSIS W/MICROSCOPIC NO CULTURE (10/27/2016 10:47 AM AGENCY SERVICE COORDINATOR) Only the most recent of3 resultswithin the time period is included. Color UA Yellow Straw, Yellow, Colorless, Light Yellow [facility] Clarity UA Clear Clear [facility] Specific [place] UA 1.008 1.001 - 1.030 [facility] pH UA 6.5 5.0 - 8.0 [facility] Protein UA Negative <=20 mg/dL [facility] Glucose UA Negative Negative mg/dL [facility] Ketone UA Negative Negative mg/dL [facility] Bilirubin UA Negative Negative mg/dL [facility] Blood UA Negative Negative [facility] Nitrite UA Negative Negative [facility] Leukocyte Esterase Negative Negative [facility] Urobilinogen UA <2.0 <2.0 mg/dL [facility] RBC UA 1 0 - 8 /HPF [facility] WBC UA 1 0 - 2 /HPF [facility] Squamous Epithelial Cells UA <1 0 - 1 /HPF [facility] Mucus UA Rare(A) None /LPF [facility] Urine specimen (specimen) URINE SPECIMEN OBTAINED BY CLEAN CATCH PROCEDURE / Unknown 10/27/2016 10:47 AM AGENCY SERVICE COORDINATOR 10/27/2016 10:52 AM AGENCY SERVICE COORDINATOR Yesy Dias APRN-KILN PLACER LAB - URINALYSI S ORDERABLES [address] [phone] * (ABNORMAL) KAPPA/LAMBDA LITE CHAIN FREE PANEL (10/21/2016 10:00 AM AGENCY SERVICE COORDINATOR) Only the most recent of5 resultswithin the time period is included. [facility] Free [place] Light Chains Quantitative 4.50 3.30 - 19.40 mg/L [facility] ([facility]) Free Lambda Light Chains Quantitative 2.52(L) 5.71 - 26.30 mg/L [facility] ([facility]) [place]/Lambda Ratio 1.79(H) 0.26 - 1.65 [facility] ([facility]) Blood specimen (specimen) BLOOD SPECIMEN / Unknown 10/21/2016 10:00 AM AGENCY SERVICE COORDINATOR 10/21/2016 11:12 AM AGENCY SERVICE COORDINATOR Narrative [facility] ([facility]) - 10/22/2016 5:10 PM AGENCY SERVICE COORDINATOR Performed at: [address] [place] [address] [id number] Tread Builder: Maycol Coronado PhD, Phone: [phone] Yesy Dias DERRICK ENGINEER-KILN PLACER LAB - CHEMISTRY ORDERABLES Performing Organization Address City/[facility]/ZIP Co de Phone Number [facility] ([facility]) * (ABNORMAL) IGA BLOOD (10/21/2016 10:00 AM AGENCY SERVICE COORDINATOR) Only the most recent of4 resultswithin the time period is included. [facility] IgA 14(L) 87 - 534 mg/dL [facility] Blood specimen (specimen) BLOOD SPECIMEN / Unknown 10/21/2016 10:00 AM AGENCY SERVICE COORDINATOR 10/21/2016 11:12 AM AGENCY SERVICE COORDINATOR Yesy Mario Dias APRN-KILN PLACER LAB - CHEMISTRY ORDERABLES [address] [phone] * (ABNORMAL) VANCOMYCIN LEVEL TROUGH (10/03/2016 9:24 AM CDT) Only the most recent of2 resultswithin the time period is included. [facility] Vancomycin Trough 20.5(H) 10.0 - 20.0 mcg/mL [facility] Blood specimen (specimen) BLOOD SPECIMEN / Unknown 10/03/2016 9:24 AM CDT 10/03/2016 9:58 AM CDT Cherry Moreno APRN-KILN PLACER LAB - CHEMISTRY ORDE CANDE Performing Organization Address [facility]/ZIP Co de Phone Number [address] [phone] * CROSSMATCH RBC LEUKOREDUCED (10/01/2016 2:20 AM CDT) Irradiated RBC [id number] transfused [facility] (BEAKER) Unit ABO O [facility] ([facility]) Unit Rh POS [facility] (BEAKER) Unit Number [id number] [facility] (BEAKER) Unit Status Transfused [facility] (BEAKER) 10/01/2016 2:20 AM CDT 10/01/2016 2:29 AM CDT Narrative [facility]) - 10/01/2016 2:20 AM CDT Special Requirements->CMV Negative Special Requirements->Irradiated # of Units->1 Sterling Miguel MD LAB - BLOOD BANK ORD ERABLES Performing Organization Address [facility] Co de Phone Number [facility] * (ABNORMAL) PLATELET COUNT AUTO (09/30/2016 12:24 PM CDT) Only the most recent of3 resultswithin the time period is included. Platelet Count 28(LL) 150 - 400 10 3/uL [facility] Comment:Confirmed by repeat analysis. Checked and not called to [address]. Blood specimen (specimen) BLOOD SPECIMEN / Unknown 09/30/2016 12:24 PM CDT 09/30/2016 12:35 PM CDT Stephanie Choe APRN-KILN PLACER LAB - HEMATOLOG Y ORDERABLES [address] [phone] * CLOSTRIDIUM DIFFICILE GD AG + TOXIN A+B (09/29/2016 3:03 PM CDT) Only the most recent of2 resultswithin the time period is included. C difficile Antigen Negative Negative [facility] [employer] [facility] C difficile Toxin Negative Negative [facility] Stool specimen (specimen) STOOL SPECIMEN / Unknown 09/29/2016 3:03 PM CDT 09/29/2016 3:09 PM CDT Narrative [facility] - 09/30/2016 12:30 PM CDT Specimen Type->Stool Andre Burroughs DERRICK ENGINEER-KILN PLACER LAB - MICROBIOLO GY ORDERABLES [facility] [address] [phone] * AMIKACIN LEVEL RANDOM (09/25/2016 4:41 PM CDT) Amikacin Random [facility] NON INTERF Blood specimen (specimen) BLOOD SPECIMEN / Unknown 09/25/2016 4:41 PM CDT 09/25/2016 4:59 PM CDT Narrative [facility] NON INTERF - 09/25/2016 7:51 PM CDT Please draw 6 hours after amikacin administration. Thanks! Stephanie Choe DERRICK ENGINEER-KILN PLACER LAB - CHEMISTRY ORDERABLES Performing Organization Address City/[facility]/ZIP Co de Phone Number [facility] NON INTERF * FLOW CTP CD3/CD34/CD45 COUNT RESULT ONLY (09/03/2016 9:41 AM CDT) Donor CD34+CD45 Flow Cytometry Accession No: [id number] Specimen: HPCA Reference:[id number] Reason for test: CD34 / CD45 Requested Markers: 2 Flow Cytometry Results: Differential Result Comment CD34 Cells/ml(10^6) 0.83 %VIABILITY * 100 Lymph/[place] Surface Marker Result (%) Abs Count (cells/ul) CD34 0.26 832.000 CD45 88 681944.000 A discrete stem cell population is evident. Test performed at [facility], [address] [place] [id number] INTERPRETATION: This results in 341.120 x 10^6 total cells. [facility] ([facility]) Blood specimen (specimen) 09/03/2016 9:41 AM CDT 09/03/2016 9:41 AM CDT Narrative [facility] ([facility] - 09/03/2016 4:49 PM CDT [id number] Manuel Rodriguez MD LAB - PATHOLOGY/CYTO LOGY ORDERABLES [facility] ([facility]) * (ABNORMAL) CALCIUM IONIZED WHOLE BLOOD (09/03/2016 7:09 AM CDT) Only the most recent of3 resultswithin the time period is included. [facility] Ionized Calcium Whole Blood 1.18 mmol/L [facility] Adjusted Ionized Calcium 1.17(L) 1.19 - 1.34 mmol/L [facility] pH Whole Blood 7.39 7.35 - 7.45 [facility] Blood specimen (specimen) BLOOD SPECIMEN / Unknown 09/03/2016 7:09 AM CDT 09/03/2016 7:14 AM CDT Sterling Miguel MD LAB - CHEMISTRY KIT CASTELLON Performing Organization Address [facility] Co de Phone Number [address] [phone] * POTASSIUM BLOOD (09/03/2016 7:09 AM CDT) [facility] Potassium 4.1 3.5 - 4.5 mmol/L [facility] Blood specimen (specimen) BLOOD SPECIMEN / Unknown 09/03/2016 7:09 AM CDT 09/03/2016 7:14 AM CDT Sterling Miguel MD LAB - CHEMISTRY KIT CASTELLON Performing Organization Address [facility]/ZIP Co de Phone Number [address] [phone] * FLOW CYTOMETRY CD34 COUNT DONOR (09/03/2016 7:09 AM CDT) [facility] Donor CD34 Accession No: [id number] Specimen: Blood Reference:[id number] Reason for test: CD34 / CD45 Requested Markers: 2 Flow Cytometry Results: Differential Result Comment CD34 Cells/ml(10^6) 0.03 %VIABILITY * 98 Lymph/[place] Surface Marker Result (%) Abs Count (cells/ul) CD34 0.09 34.110 CD45 99 84100.000 A discrete stem cell population is evident. Test performed at [facility], [address] [place] [id number] INTERPRETATION: NA [facility] Blood specimen (specimen) 09/03/2016 7:09 AM CDT 09/03/2016 8:26 AM CDT Sterling Miguel MD LAB - PATHOLOGY/CYTO LOGY ORDERABLES [facility] ([facility]) * IR PICC LINE INSERT (09/01/2016 1:06 PM CDT) Anatomical Region Laterality Modality Other Narrative 09/03/2016 12:29 PM CDT This is an Interventional Nephrology procedure performed on 09/01/16 Blue Split Trimmer: Allison Saavedra M.D. Attending: Allison Saavedra M.D. Management Manager: Rajendra Cooley M.D. Procedures performed: 1. Insertion of tunneled Nassar triple-lumen central venous catheter 2. Fluoroscopic guidance for central venous catheter procedure. 3. Ultrasound guidance for vascular access with permanent recording. Following informed consent the patient was taken to the angiography suite and placed on the fluoroscopy table. The skin of the right neck and chest was prepared with chlorhexidine and sterile drapes were applied. Under real time ultrasound guidance, the right internal jugular vein was accessed with a micropuncture needle, a falcon scale image was recorded and a microfilament wire was advanced to the central veins under fluoroscopic guidance. This allowed the placement of a 5 [place] trocar which in turn allowed the placement of a 0.035 guidewire which was manipulated into the IVC. An exit site was chosen on the chest wall and anesthetized with lidocaine. Using a metal tunneling device, a 19 cm Nassar triple-lumen central venous catheter was brought through a subcutaneous tunnel to the venotomy incision and prepared for insertion. Serial dilators were utilized to create a track to the jugular vein sufficient to accommodate a peel-away sheath which was inserted over the guidewire and the inner stylet was removed. The catheter was inserted through the sheath which was then removed. The catheter was adjusted for length under fluoroscopy such that the tip was at the junction of the SVC and RA. All lumens flushed easily and were locked with heparin. The catheter was sutured in place with 4-0 Vicryl and a CHG dressing and StatLock were placed. The venotomy incision was closed with a 4-0 Vicryl suture. I was present for the entire procedure. This report was electronically signed by ISAAC SAAVEDRA MD on 09/03/2016 12:29 PM . Procedure Note Bang, MD Isaac - 02/27/2018 This is an Interventional Nephrology procedure performed on 09/01/16 Blue Split Trimmer: Allison Saavedra M.D. Attending: Allison Saavedra M.D. Management Manager: Rajendra Cooley M.D. Procedures performed: 1. Insertion of tunneled Nassar triple-lumen central venous catheter 2. Fluoroscopic guidance for central venous catheter procedure. 3. Ultrasound guidance for vascular access with permanent recording. Following informed consent the patient was taken to the angiography suiteand placed on the fluoroscopy table. The skin of the right neck and chestwas prepared with chlorhexidine and sterile drapes were applied. Underreal time ultrasound guidance, the right internal jugular vein was accessed with a micropuncture needle,a falcon scale image was recorded and a microfilament wire was advanced tothe central veins under fluoroscopic guidance. This allowed the placementof a 5 [place] trocar which in turn allowed the placement of a 0.035 guidewire which was manipulated intothe IVC. An exit site was chosen on the chest wall and anesthetized withlidocaine. Using a metal tunneling device, a 19 cm Nassar triple-lumencentral venous catheter was brought through a subcutaneous tunnel to the venotomy incision andprepared for insertion. Serial dilators were utilized to create a trackto the jugular vein sufficient to accommodate a peel-away sheath which wasinserted over the guidewire and the inner stylet was removed. The catheter was inserted through the sheathwhich was then removed. The catheter was adjusted for length underfluoroscopy such that the tip was at the junction of the SVC and RA. Alllumens flushed easily and were locked with heparin. The catheter was sutured in place with 4-0 Vicryl and a CHGdressing and StatLock were placed. The venotomy incision was closed witha 4-0 Vicryl suture. I was present for the entire procedure. This report was electronically signed by ISAAC SAAVEDRA MD on 09/03/201612:29 PM . Sterling Miguel MD IR ORDERABLES * IR CENTRAL LINE INSERT TUNNEL (09/01/2016 1:06 PM CDT) Anatomical Region Laterality Modality Other Narrative 09/03/2016 12:29 PM CDT This is an Interventional Nephrology procedure performed on 09/01/16 Blue Split Trimmer: Allison Saavedra M.D. Attending: Allison Saavedra M.D. Management Manager: Rajendra Cooley M.D. Procedures performed: 1. Insertion of tunneled Nassar triple-lumen central venous catheter 2. Fluoroscopic guidance for central venous catheter procedure. 3. Ultrasound guidance for vascular access with permanent recording. Following informed consent the patient was taken to the angiography suite and placed on the fluoroscopy table. The skin of the right neck and chest was prepared with chlorhexidine and sterile drapes were applied. Under real time ultrasound guidance, the right internal jugular vein was accessed with a micropuncture needle, a falcon scale image was recorded and a microfilament wire was advanced to the central veins under fluoroscopic guidance. This allowed the placement of a 5 [place] trocar which in turn allowed the placement of a 0.035 guidewire which was manipulated into the IVC. An exit site was chosen on the chest wall and anesthetized with lidocaine. Using a metal tunneling device, a 19 cm Nassar triple-lumen central venous catheter was brought through a subcutaneous tunnel to the venotomy incision and prepared for insertion. Serial dilators were utilized to create a track to the jugular vein sufficient to accommodate a peel-away sheath which was inserted over the guidewire and the inner stylet was removed. The catheter was inserted through the sheath which was then removed. The catheter was adjusted for length under fluoroscopy such that the tip was at the junction of the SVC and RA. All lumens flushed easily and were locked with heparin. The catheter was sutured in place with 4-0 Vicryl and a CHG dressing and StatLock were placed. The venotomy incision was closed with a 4-0 Vicryl suture. I was present for the entire procedure. This report was electronically signed by ISAAC SAAVEDRA MD on 09/03/2016 12:29 PM . Procedure Note Bang, MD Isaac - 02/27/2018 This is an Interventional Nephrology procedure performed on 09/01/16 Blue Split Trimmer: Allison Saavedra M.D. Attending: Allison Saavedra M.D. Management Manager: Rajendra Cooley M.D. Procedures performed: 1. Insertion of tunneled Nassar triple-lumen central venous catheter 2. Fluoroscopic guidance for central venous catheter procedure. 3. Ultrasound guidance for vascular access with permanent recording. Following informed consent the patient was taken to the angiography suiteand placed on the fluoroscopy table. The skin of the right neck and chestwas prepared with chlorhexidine and sterile drapes were applied. Underreal time ultrasound guidance, the right internal jugular vein was accessed with a micropuncture needle,a falcon scale image was recorded and a microfilament wire was advanced tothe central veins under fluoroscopic guidance. This allowed the placementof a 5 [place] trocar which in turn allowed the placement of a 0.035 guidewire which was manipulated intothe IVC. An exit site was chosen on the chest wall and anesthetized withlidocaine. Using a metal tunneling device, a 19 cm Nassar triple-lumencentral venous catheter was brought through a subcutaneous tunnel to the venotomy incision andprepared for insertion. Serial dilators were utilized to create a trackto the jugular vein sufficient to accommodate a peel-away sheath which wasinserted over the guidewire and the inner stylet was removed. The catheter was inserted through the sheathwhich was then removed. The catheter was adjusted for length underfluoroscopy such that the tip was at the junction of the SVC and RA. Alllumens flushed easily and were locked with heparin. The catheter was sutured in place with 4-0 Vicryl and a CHGdressing and StatLock were placed. The venotomy incision was closed witha 4-0 Vicryl suture. I was present for the entire procedure. This report was electronically signed by ISAAC SAAVEDRA MD on 09/03/201612:29 PM . Sterling Miguel MD IR ORDERABLES * IR US GUIDE VASCULAR ACCESS (09/01/2016 1:06 PM CDT) Anatomical Region Laterality Modality Other Narrative 09/03/2016 12:29 PM CDT This is an Interventional Nephrology procedure performed on 09/01/16 Blue Split Trimmer: Allison Saavedra M.D. Attending: Allison Saavedra M.D. Management Manager: Rajendra Cooley M.D. Procedures performed: 1. Insertion of tunneled Nassar triple-lumen central venous catheter 2. Fluoroscopic guidance for central venous catheter procedure. 3. Ultrasound guidance for vascular access with permanent recording. Following informed consent the patient was taken to the angiography suite and placed on the fluoroscopy table. The skin of the right neck and chest was prepared with chlorhexidine and sterile drapes were applied. Under real time ultrasound guidance, the right internal jugular vein was accessed with a micropuncture needle, a falcon scale image was recorded and a microfilament wire was advanced to the central veins under fluoroscopic guidance. This allowed the placement of a 5 [place] trocar which in turn allowed the placement of a 0.035 guidewire which was manipulated into the IVC. An exit site was chosen on the chest wall and anesthetized with lidocaine. Using a metal tunneling device, a 19 cm Nassar triple-lumen central venous catheter was brought through a subcutaneous tunnel to the venotomy incision and prepared for insertion. Serial dilators were utilized to create a track to the jugular vein sufficient to accommodate a peel-away sheath which was inserted over the guidewire and the inner stylet was removed. The catheter was inserted through the sheath which was then removed. The catheter was adjusted for length under fluoroscopy such that the tip was at the junction of the SVC and RA. All lumens flushed easily and were locked with heparin. The catheter was sutured in place with 4-0 Vicryl and a CHG dressing and StatLock were placed. The venotomy incision was closed with a 4-0 Vicryl suture. I was present for the entire procedure. This report was electronically signed by ISAAC SAAVEDRA MD on 09/03/2016 12:29 PM . Procedure Note Bang, MD Isaac - 02/27/2018 This is an Interventional Nephrology procedure performed on 09/01/16 Blue Split Trimmer: Allison Saavedra M.D. Attending: Allison Saavedra M.D. Management Manager: Rajendra Cooley M.D. Procedures performed: 1. Insertion of tunneled Nassar triple-lumen central venous catheter 2. Fluoroscopic guidance for central venous catheter procedure. 3. Ultrasound guidance for vascular access with permanent recording. Following informed consent the patient was taken to the angiography suiteand placed on the fluoroscopy table. The skin of the right neck and chestwas prepared with chlorhexidine and sterile drapes were applied. Underreal time ultrasound guidance, the right internal jugular vein was accessed with a micropuncture needle,a falcon scale image was recorded and a microfilament wire was advanced tothe central veins under fluoroscopic guidance. This allowed the placementof a 5 [place] trocar which in turn allowed the placement of a 0.035 guidewire which was manipulated intothe IVC. An exit site was chosen on the chest wall and anesthetized withlidocaine. Using a metal tunneling device, a 19 cm Nassar triple-lumencentral venous catheter was brought through a subcutaneous tunnel to the venotomy incision andprepared for insertion. Serial dilators were utilized to create a trackto the jugular vein sufficient to accommodate a peel-away sheath which wasinserted over the guidewire and the inner stylet was removed. The catheter was inserted through the sheathwhich was then removed. The catheter was adjusted for length underfluoroscopy such that the tip was at the junction of the SVC and RA. Alllumens flushed easily and were locked with heparin. The catheter was sutured in place with 4-0 Vicryl and a CHGdressing and StatLock were placed. The venotomy incision was closed witha 4-0 Vicryl suture. I was present for the entire procedure. This report was electronically signed by ISAAC SAAVEDRA MD on 09/03/201612:29 PM . Sterling Miguel MD IR ORDERABLES * (ABNORMAL) INFECTIOUS DISEASE TESTING NTL (08/22/2016 8:57 AM CDT) Hepatitis B Surface Antigen Negative Negative [facility] Hepatitis C Virus Antibody Negative Negative [facility] HIV-1 / HIV-2 Antibody Western Blot Negative Negative [facility] Hepatitis B Core Virus Antibody Negative Negative [facility] HTLV-I/II Antibody Negative Negative [facility] NTL T. pallidum Antibody Negative Negative [facility] Cytomegalovirus Antibody Positive(A) Negative [facility] HIV-1/HCV/HBV (TAMMI) Negative Negative [facility] West Nile Virus Negative Negative [facility] [place] Antibody Negative Negative [facility] Blood specimen (specimen) BLOOD SPECIMEN / Unknown 08/22/2016 8:57 AM CDT 08/22/2016 9:31 AM CDT Narrative [facility] - 08/25/2016 10:46 AM CDT [facility] ID [id number] Performed By: [facility] [address] [place] [address] Historical Provider LAB - CHEMISTRY O RDERABLES Performing Organization Address City/State/[facility] Co de Phone Number [address] [phone] * (ABNORMAL) LIPID PROFILE (08/22/2016 8:56 AM CDT) Cholesterol Total 186 <200 mg/dL [facility] HDL 50 >40 mg/dL [facility] Comment: ATP III Classification of HDL Cholesterol: <40 mg/dL: Considered a major risk factor. >60 mg/dL: Considered a negative risk factor. LDL Calculated 118(H) <100 mg/dL [facility] Comment: ATP III Classification of LDL Cholesterol: <100 mg/dL: Optimal 100 - 129 mg/dL: Near Optimal/Above Optimal 130 - 159 mg/dL: Borderline High 160 - 189 mg/dL: High >190 mg/dL: Very High Triglycerides 88 <150 mg/dL [facility] Comment: ATP III Classification of Triglycerides: <150 mg/dL: Normal 150 - 199 mg/dL: Borderline High 200 - 400 mg/dL: High >500 mg/dL: Very High Blood specimen (specimen) BLOOD SPECIMEN / Unknown 08/22/2016 8:56 AM CDT 08/22/2016 9:05 AM CDT Sterling Miguel MD LAB - CHEMISTRY KIT CASTELLON Performing Organization Address City/[facility]/ZIP Co de Phone Number [address] [phone] * TRANSFERRIN (08/22/2016 8:56 AM CDT) Only the most recent of3 resultswithin the time period is included. Transferrin 296 174 - 382 mg/dL [facility] Transferrin Saturation % 27 16 - 50 % [facility] Blood specimen (specimen) BLOOD SPECIMEN / Unknown 08/22/2016 8:56 AM CDT 08/22/2016 9:04 AM CDT Ana Rosa Provider LAB - CHEMISTRY O ASA Performing Organization Address [facility] Co de Phone Number [address] [phone] * FERRITIN (08/22/2016 8:56 AM CDT) Only the most recent of3 resultswithin the time period is included. Ferritin 27 22 - 275 ng/mL [facility] Blood specimen (specimen) BLOOD SPECIMEN / Unknown 08/22/2016 8:56 AM CDT 08/22/2016 9:04 AM CDT Sterling Miguel MD LAB - CHEMISTRY KIT CASTELLON Performing Organization Address [facility] Co de Phone Number [address] [phone] * CREATININE CLEARANCE URINE TIMED + BLOOD (08/19/2016 12:53 PM CDT) Only the most recent of5 resultswithin the time period is included. Creatinine Urine 116 Not Established mg/dL [facility] Creatinine 1.0 0.6 - 1.2 mg/dL [facility] Volume Timed Urine 1,550 mL [facility] Comment:This is a corrected result. Previous result was 24 mL on 08/19/2016 at 1437 CDT Collection Time Timed Urine 24 Hrs [facility] Comment: Volume and collection period were switched. This is a corrected result. Previous result was 1550.00 Hrs on 08/19/2016 at 1437 CDT Creatinine Clearance 125 70 - 130 mL/minute/1.73m 2 [facility] Comment:This is a corrected result. Previous result was <1 mL/minute/1.73m2 on 08/19/2016 at 1437 CDT Chart BSA 2.36 Avg. BSA = 1.73 m2 m2 [facility] Creatinine Clearance (Corrected for BSA) 92 Not Established mL/minute [facility] Comment:This is a corrected result. Previous result was <1 mL/minute on 08/19/2016 at 1437 CDT Urine specimen (specimen) 08/19/2016 12:53 PM CDT 08/19/2016 1:42 PM CDT Ina Boyer MD LAB - URINE CHEMIS TRY ORDERABLES Performing Organization Address [facility] Co de Phone Number [address] [phone] * PROTEIN URINE TIMED QUANTITATIVE (08/19/2016 12:50 PM CDT) Protein Urine <7 Not Established mg/dL [facility] Collection Time Timed Urine 24.00 Hrs [facility] Protein 24 Hour Urine <109 77 - 197 mg/24 hrs [facility] Comment:Unable to calculate excretion rate because the analyte concentration is outside the instrument measuring range. Volume Timed Urine 1,550 mL [facility] Urine specimen (specimen) (Urine, unspecified source) 08/19/2016 12:50 PM CDT 08/19/2016 1:42 PM CDT Ina Boyer MD LAB - URINE CHEMIS TRY ORDERABLES Performing Organization Address City/[facility]/ZIP Co de Phone Number [address] [place] [phone] * CREATININE BLOOD (08/19/2016 12:49 PM CDT) Only the most recent of2 resultswithin the time period is included. Pathologist [facility] [place] Creatinine 1.0 0.6 - 1.2 mg/dL [facility] eGFR >60 >60 mL/min/1.73 m2 [facility] Blood specimen (specimen) BLOOD SPECIMEN / Unknown 08/19/2016 12:49 PM CDT 08/19/2016 1:00 PM CDT Sterling Miguel MD LAB - CHEMISTRY KIT CASTELLON [facility] [address] [phone] * (ABNORMAL) MICKEY-WALTON VIRUS ANTIBODY TO VCA IGG (08/19/2016 12:16 PM CDT) [facility] Mickey-Walton Virus Antibody To Viral Capsid Antigen IgG 504.0(H) 0.0 - 21.9 U/mL [facility] (BEAKER) Comment: INTERPRETIVE INFORMATION: Mickey-Walton Virus Antibody to Viral Capsid Antigen, IgG 17.9 U/mL or less.......Not Detected 18.0-21.9 U/mL..........Indeterminate - Repeat testing in 10-14 days may be helpful. 22.0 U/mL or greater....Detected Interpretive information regarding serologic features of EBV-associated diseases is available at [email or web address]. Blood specimen (specimen) BLOOD SPECIMEN / Unknown 08/19/2016 12:16 PM CDT 08/19/2016 1:07 PM CDT Sterling Miguel MD LAB - CHEMISTRY KIT CASTELLON [facility] (BEAKER) * HEPATITIS B SURFACE ANTIBODY (08/19/2016 12:16 PM CDT) [facility] Hepatitis B Virus Surface Antibody Non-react mariusz Non-react mariusz [facility] Comment: < 8 mIU/mL Hepatitis B surface Antibody (HBsAb). Nonreactive for HBsAb - individual is considered not immune to Hepatitis B Virus infection. Hepatitis B Surface Antibody Quantitative 0.1 <8.0 mIU/mL [facility] Comment: Hepatitis B Surface Antibody Numeric Result Interpretation: Nonreactive: <8.0 mIU/mL Indeterminate: 8.0 - 12.0 mIU/mL Reactive: >12.0 mIU/mL Blood specimen (specimen) BLOOD SPECIMEN / Unknown 08/19/2016 12:16 PM CDT 08/19/2016 1:01 PM CDT Sterling Miguel MD LAB - CHEMISTRY ORDE CANDE Performing Organization Address [facility]/ZIP Co de Phone Number [address] [phone] * MICKEY-WALTON VIRUS ANTIBODY TO VCA IGM (08/19/2016 12:16 PM CDT) Mickey-Walton VCA Antibody IgM <10.0 0.0 - 43.9 U/mL [facility] (BEAKER) Comment: INTERPRETIVE INFORMATION: Mickey-Walton Virus Antibody to Viral Capsid Antigen, IgM 35.9 U/mL or less.......Not Detected 36.0-43.9 U/mL..........Indeterminate - Repeat testing in 10-14 days may be helpful. 44.0 U/mL or greater....Detected Interpretive information regarding serologic features of EBV-associated diseases is available at [email or web address]. Blood specimen (specimen) BLOOD SPECIMEN / Unknown 08/19/2016 12:16 PM CDT 08/19/2016 1:07 PM CDT Sterling Miguel MD LAB - SEROLOGY ORDER CALEB [facility] * (ABNORMAL) CYTOMEGALOVIRUS ANTIBODY IGG BLOOD (08/19/2016 12:16 PM CDT) Only the most recent of2 resultswithin the time period is included. [facility] Cytomegalovirus Antibody IgG 0.76(H) 0.00 - 0.59 U/mL [facility]) Comment: Negative <0.60 Equivocal 0.60 - 0.69 Positive >0.69 Blood specimen (specimen) BLOOD SPECIMEN / Unknown 08/19/2016 12:16 PM CDT 08/19/2016 1:07 PM CDT Narrative [facility]) - 08/21/2016 8:25 AM CDT Performed at: [address] [place] [address] [id number] Tread Builder: Maycol Coronado PhD, Phone: [phone] Sterling Miguel MD LAB - CHEMISTRY KIT CASTELLON Performing Organization Address City/[facility]/ZIP Co de Phone Number [facility]) * (ABNORMAL) CHOLESTEROL BLOOD (08/19/2016 12:16 PM CDT) [facility] Cholesterol Total 209(H) <200 mg/dL [facility] Blood specimen (specimen) BLOOD SPECIMEN / Unknown 08/19/2016 12:16 PM CDT 08/19/2016 1:00 PM CDT Sterling Miguel MD LAB - CHEMISTRY KIT CASTELLON Performing Organization Address City/[facility]/ZIP Co de Phone Number [address] [phone] * (ABNORMAL) HERPES SIMPLEX 1+2 AB IGG SPEC (08/19/2016 12:16 PM CDT) [facility] Herpes Simplex Virus 1 Antibody IgG Type Specific 18.60(H) 0.00 - 0.90 index [facility]) Comment: Negative <0.91 Equivocal 0.91 - 1.09 Positive >1.09 Note: Negative indicates no antibodies detected to HSV-1. Equivocal may suggest early infection. If clinically appropriate, retest at later date. Positive indicates antibodies detected to HSV-1. Herpes Simplex Virus 2 Antibody IgG Type Specific <0.91 0.00 - 0.90 index [facility]) Comment: Negative <0.91 Equivocal 0.91 - 1.09 Positive >1.09 Note: Negative indicates no antibodies detected to HSV-2. Equivocal may suggest early infection. If clinically appropriate, retest at later date. Positive indicates antibodies detected to HSV-2. Blood specimen (specimen) BLOOD SPECIMEN / Unknown 08/19/2016 12:16 PM CDT 08/19/2016 1:07 PM CDT Narrative [facility] ([facility]) - 08/20/2016 8:28 AM CDT Performed at: [address] [place] [address] [id number] Tread Builder: Maycol Coronado PhD, Phone: Perzo Sterling Miguel MD LAB - SEROLOGY ORDER CALEB Performing Organization Address [facility] Co de Phone Number [facility]) * TOXOPLASMA GONDII ANTIBODY IGG (08/19/2016 12:16 PM CDT) Pathologist [facility] [place] Toxoplasma gondii Antibody IGG 5.1 0.0 - 7.1 IU/mL [facility]) Comment: Negative <7.2 Equivocal 7.2 - 8.7 Positive >8.7 Blood specimen (specimen) BLOOD SPECIMEN / Unknown 08/19/2016 12:16 PM CDT 08/19/2016 1:06 PM CDT Narrative [facility]) - 08/20/2016 8:28 AM CDT Performed at: [address] [id number] Tread Builder: Maycol Coronado PhD, Phone: [phone] Sterling Miguel MD LAB - CHEMISTRY ORDAmos CASTELLON Performing Organization Address [facility] Co de Phone Number [facility]) * HERPES SIMPLEX 1+2 ANTIBODY IGM (08/19/2016 12:16 PM CDT) Herpes Simplex Virus Antibody IgM I/II Combination <0.91 0.00 - 0.90 Ratio [facility]) Comment: Negative <0.91 Equivocal 0.91 - 1.09 Positive >1.09 Blood specimen (specimen) BLOOD SPECIMEN / Unknown 08/19/2016 12:16 PM CDT 08/19/2016 1:07 PM CDT Narrative [facility] ([facility]) - 08/20/2016 1:11 PM CDT Performed at: [address] [place] [address] [id number] Tread Builder: Maycol Coronado PhD, Phone: [phone] Sterling Miguel MD LAB - CHEMISTRY KIT CASTELLON Performing Organization Address [facility] Co de Phone Number [facility]) * VARICELLA ZOSTER ANTIBODY IGM (08/19/2016 12:16 PM CDT) Pathologist [facility] [place] Varicella zoster Virus Antibody IgM <0.91 0.00 - 0.90 index [facility]) Comment: Negative <0.91 Borderline 0.91 - 1.09 Positive >1.09 Blood specimen (specimen) BLOOD SPECIMEN / Unknown 08/19/2016 12:16 PM CDT 08/19/2016 1:06 PM CDT Narrative [facility]) - 08/20/2016 3:16 PM CDT Performed at: [address] [place] [address] [id number] Tread Builder: Maycol Coronado PhD, Phone: [phone] Sterling Miguel MD LAB - CHEMISTRY KIT CASTELLON Performing Organization Address [facility]/ZIP Co de Phone Number [facility]) * CYTOMEGALOVIRUS ANTIBODY IGM BLOOD (08/19/2016 12:16 PM CDT) Pathologist [facility] [place] Cytomegalovirus Antibody IgM <30.0 0.0 - 29.9 AU/mL [facility]) Comment: Negative <30.0 Equivocal 30.0 - 34.9 Positive >34.9 A positive result is generally indicative of acute infection, reactivation or persistent IgM production. Blood specimen (specimen) BLOOD SPECIMEN / Unknown 08/19/2016 12:16 PM CDT 08/19/2016 1:07 PM CDT Narrative [facility] ([facility]) - 08/21/2016 8:25 AM CDT Performed at: [address] - [address] [id number] Tread Builder: Maycol Coronado PhD, Phone: [phone] Sterling Miguel MD LAB - CHEMISTRY KIT CASTELLON [facility] * SICKLE CELL SCREEN (08/19/2016 12:16 PM CDT) Pathologist [facility] [place] Sickle Cell Screen Negative Negative [facility] Blood specimen (specimen) BLOOD SPECIMEN / Unknown 08/19/2016 12:16 PM CDT 08/19/2016 1:00 PM CDT Sterling Miguel MD LAB - HEMATOLOGY ORD JENNIFER Performing Organization Address [facility]/ZIP Co de Phone Number [address] [phone] * RETIC COUNT (08/19/2016 12:16 PM CDT) Only the most recent of2 resultswithin the time period is included. [facility] Reticulocyte % 1.2 0.4 - 2.5 % [facility] Reticulocyte Absolute 0.05 0.02 - 0.13 10 6/uL [facility] Blood specimen (specimen) BLOOD SPECIMEN / Unknown 08/19/2016 12:16 PM CDT 08/19/2016 1:00 PM CDT Sterling Miguel MD LAB - HEMATOLOGY PRAMOD RODRIGUEZ Performing Organization Address [facility]/ZIP Co de Phone Number [address] [phone] * PTT [facility] (08/19/2016 12:16 PM CDT) Pathologist [facility] APTT 23.6 23.0 - 38.4 Seconds [facility] Comment:Suggested therapeuti c range for full dose I.V. heparin therapy for venous thromboembolism is 66.0-91.0 seconds. Blood specimen (specimen) BLOOD SPECIMEN / Unknown 08/19/2016 12:16 PM CDT 08/19/2016 1:00 PM CDT Narrative [facility] - 08/19/2016 1:22 PM CDT Is patient on Heparin, Argatroban or Dabigatran?->N Sterling Miguel MD LAB - COAGULATION OR DERABLES Performing Organization Address [facility] Co de Phone Number [address] [phone] * PT-INR [facility] (08/19/2016 12:16 PM CDT) Only the most recent of2 resultswithin the time period is included. PT 13.4 12.1 - 14.8 Seconds [facility] INR 1.0 See Comment [facility] Comment: Suggested therapeutic range for low-intensity coumadin therapy for venous thromboembolism prophylaxis is an INR of 2.0-3.0. For high risk patients (Mitral Valve Prosthesis, Atrial Fibrillation, history of TIA/stroke), suggested prophylactic therapeutic range is an INR of 2.5-3.5. Blood specimen (specimen) BLOOD SPECIMEN / Unknown 08/19/2016 12:16 PM CDT 08/19/2016 1:00 PM CDT Narrative [facility] - 08/19/2016 1:22 PM CDT Is patient on Heparin, Argatroban or Dabigatran?->N Sterling Miguel MD LAB - COAGULATION OR DERABLES Performing Organization Address [facility] Co de Phone Number [address] [phone] * FIBRINOGEN ACTIVITY (08/19/2016 12:16 PM CDT) Fibrinogen Clauss 392 200 - 400 mg/dL [facility] Blood specimen (specimen) BLOOD SPECIMEN / Unknown 08/19/2016 12:16 PM CDT 08/19/2016 1:00 PM CDT Sterling Miguel MD LAB - COAGULATION OR DERABLES [address] [phone] * XR PANOREX (08/19/2016 9:12 AM CDT) Anatomical Region Laterality Modality Head Other Impressions 08/19/2016 10:17 AM CDT IMPRESSION: 1. No evidence of periapical abscess. 2. Periodontal disease with multiple dental caries. Dictated by Kee Brown MD (advertising vice president). This report was approved by Afshin Brown M.D. on 08/19/2016 10:11 AM . IDr. JITENDRA M.D. have personally reviewed and interpreted this examination/study. This report was electronically signed by JITENDRA DE LEÓN M.D. on 08/19/2016 10:17 AM . Narrative 08/19/2016 10:17 AM CDT EXAMINATION: [facility] HISTORY: Pre Autologous Stem Cell Transplant evaluation COMPARISON: No prior study is available for comparison. FINDINGS: Multiple dental restorations are identified in the remaining deep and most of the teeth are absent. No acute mandibular fracture is identified. Both temporomandibular joints are intact. No periapical abscess is present. Multiple dental caries are present. There is diffuse bone resorption, suggestive of periodontal disease. There is lucency in the left mandible which may represent recent tooth extraction. Please correlate with patient's clinical history. Procedure Note Jitendra De León MD - 02/27/2018 EXAMINATION: [facility] HISTORY: Pre Autologous Stem Cell Transplant evaluation COMPARISON: No prior study is available for comparison. FINDINGS: Multiple dental restorations are identified in the remaining deep and mostof the teeth are absent. No acute mandibular fracture is identified. Bothtemporomandibular joints are intact. No periapical abscess is present.Multiple dental caries are present. There is diffuse bone resorption, suggestive of periodontaldisease. There is lucency in the left mandible which may represent recenttooth extraction. Please correlate with patient's clinical history. IMPRESSION IMPRESSION: 1. No evidence of periapical abscess. 2. Periodontal disease with multiple dental caries. Dictated by Kee Brown MD (advertising vice president). This report was approved by Afshin Brown M.D. on 08/19/2016 10:11AM . I, Dr. JITENDRA DE LEÓN M.D. have personally reviewed and interpreted thisexamination/study. This report was electronically signed by JITENDRA DE LEÓN M.D. on 08/19/201610:17 AM . Sterling Miguel MD DIAGNOSTIC IMAGING O RDERABLES * PROC LEXISCAN CARDIOLYTE STRESS TST (08/05/2016 8:58 AM CDT) Narrative [facility] - 08/05/2016 8:58 AM CDT Patient Name: Xavier Sosa : 1950 CPT Codes: 67422 Study:Pharmacologic Stress Myocardial Perfusion-One Day Protocol Date of Service: 2016 Referring Physician: Hannah This report reflects our interpretive findings of the results of the myocardial perfusion imaging and the stress electrocardiogram combined with the patient s age, sex, symptoms, and coronary risk factors. The study was performed in order to evaluate exertion dyspnea in this 66 y.o. year old male with history of atrial fibrillation and Waldenstroms macroglobulinemia. Pharmacologic Stress: Pharmacologic stress was performed with the I.V. injection of 0.4 mg of Lexiscan over 10 seconds, with stress sestamibi injection at peak heart rate. The heart rate was 90 BPM at baseline and peaked at 122 BPM during the infusion. The resting blood pressure was 100/70 and was 108/70 4 minutes after infusion of the pharmacologic agent. The resting ECG showed atrial fibrillation. The stress ECG revealed No ECG changes. The patient experienced dyspnea during the procedure. Myocardial Perfusion Imaging: SPECT myocardial perfusion imaging was performed at rest 40 minutes following the I.V. injection of 12.7 mCi Tc-99m Sestamibi. At peak pharmacologic effect, the patient was given an I.V. injection of 36.9 mCi Tc-99m Sestamibi. Gated post- stress SPECT imaging was performed 45 minutes after stress. The overall quality of the study is Good TID was 1.16 and the lung-heart ratio was 0.30, WNL. SPECT imaging revealed a small, mild fixed inferior wall perfusion defect but no reversible perfusion defects were seen. There were no significant signs of attenuation. No gated images were performed due to the patient's atrial fibrillation. Conclusion: Myocardial perfusion imaging is abnormal. The type and distribution of the scintigraphic findings is consistent with a small prior inferior wall infarct. No ischemia was seen. No previous study was available for comparison. Electronically signed by: Stephanie Poon MD Date of Interpretation: 08/05/16 Date of Final Report: 08/05/16 Procedure Note Provider, MD Ana Rosa - 05/07/2018 Patient Name: Xavier Sosa : 1950 CPT Codes: 17804 Study:Pharmacologic Stress Myocardial Perfusion-One Day Protocol Date of Service: 2016 Referring Physician: Hannah This report reflects our interpretive findings of the results of themyocardial perfusion imaging and the stress electrocardiogram combinedwith the patient s age, sex, symptoms, and coronary risk factors. Thestudy was performed in order to evaluate exertion dyspnea in this 66 y.o. year old male with history of atrialfibrillation and Waldenstroms macroglobulinemia. Pharmacologic Stress: Pharmacologic stress was performed with the I.V. injection of 0.4 mg ofLexiscan over 10 seconds, with stress sestamibi injection at peak heartrate. The heart rate was 90 BPM at baseline and peaked at 122 BPM duringthe infusion. The resting blood pressure was 100/70 and was 108/70 4 minutes after infusion of thepharmacologic agent. The resting ECG showed atrial fibrillation. Thestress ECG revealed No ECG changes. The patient experienced dyspnea duringthe procedure. Myocardial Perfusion Imaging: SPECT myocardial perfusion imaging was performed at rest 40 minutesfollowing the I.V. injection of 12.7 mCi Tc-99m Sestamibi. At peakpharmacologic effect, the patient was given an I.V. injection of 36.9 mCiTc-99m Sestamibi. Gated post-stress SPECT imaging was performed 45 minutes after stress. The overall quality of the study is Good TID was 1.16 and the lung-heartratio was 0.30, WNL. SPECT imaging revealed a small, mild fixed inferiorwall perfusion defect but no reversible perfusion defects were seen.There were no significant signs of attenuation. No gated images were performed due to the patient's atrial fibrillation. Conclusion: Myocardial perfusion imaging is abnormal. The type and distribution ofthe scintigraphic findings is consistent with a small prior inferior wallinfarct. No ischemia was seen. No previous study was available forcomparison. Electronically signed by: Stephanie Poon MD Date of Interpretation: 08/05/16 Date of Final Report: 08/05/16 Yoni Young CD ECG ORDERABLES [facility] * PROC STRESS TEST EXERCISE (2016 4:25 PM CDT) Narrative [facility] - 2016 4:25 PM CDT [facility] Nuclear Cardiology Department Myocardial Perfusion Imaging Pharmacological Stress ECG Interpretation Procedure: 1. The patient received 0.4mg of intravenous Lexiscan over 10 seconds. 2. The resting heart rate was 90 bpm; maximum heart rate was 122 bpm. 3. The resting blood pressure was 100/70 mmHg and was 108/70 mmHg 4 minutes after termination of the pharmacologic vasodilator. 4. Side Effects:headache, dyspnea and hypotension The symptoms subsided after 125 mg aminophylline 5. Chest pain: None Interpretation: 1. Rest ECG: Atrial fibrillation. 2. Stress ST segment depression: none. 3. Stress ST segment elevation: none. 4. T wave changes were absent Impression: Nondiagnostic Lexiscan ECG study due to atrial fibrillation. Please see nuclear imaging under separate report Electronically signed by: Yoni Young MD Procedure Note Provider, MD Ana Rosa - 05/07/2018 [facility] Nuclear Cardiology Department Myocardial Perfusion Imaging Pharmacological Stress ECG Interpretation Procedure: 1. The patient received 0.4mg of intravenous Lexiscan over 10 seconds. 2. The resting heart rate was 90 bpm; maximum heart rate was 122 bpm. 3. The resting blood pressure was 100/70 mmHg and was 108/70 mmHg 4minutes after termination of the pharmacologic vasodilator. 4. Side Effects:headache, dyspnea and hypotension The symptoms subsided after 125 mg aminophylline 5. Chest pain: None Interpretation: 1. Rest ECG: Atrial fibrillation. 2. Stress ST segment depression: none. 3. Stress ST segment elevation: none. 4. T wave changes were absent Impression: Nondiagnostic Lexiscan ECG study due to atrial fibrillation. Please see nuclear imaging under separate report Electronically signed by: Yoni Young MD Yoni Young CD ECG ORDERABLES [facility] * PFT-LAB (2016 2:54 PM CDT) Impressions [facility] - 2016 2:54 PM CDT [facility] DEPARTMENT OF PULMONARY, CRITICAL CARE, AND SLEEP MEDICINE PULMONARY FUNCTION TESTS Xavier Uday Sosa 66 y.o. There is no height or weight on file to calculate BMI. 08/02/2016 INTERPRETATION Please see technologist's comments mentioned above. SPIROMETRY: FEV1/FVC ratio is decreased . FEV1 is decreased. Forced vital capacity is normal. There is a significant response to bronchodilator administration. Inspection of the patient's flow-volume loops shows normal configuration of the inspiratory limbs and increased concavity of expiratory limbs. LUNG VOLUMES: Lung volumes by body plethysmography reveal an increased TLC and RV. DLCO: Diffusing capacity adjusted for Hb is within normal limits. AIRWAY RESISTANCE: The airway resistance is increased and the specific conductance is decreased. ARTERIAL BLOOD GAS was not drawn. IMPRESSION: 1. Moderate obstructive ventilatory limitation. 2. There is a significant response to bronchodilator administration. 3. Significant air trapping with hyperinflation. 4. Normal adjusted DLCO. 5. The airway resistance is increased and the specific conductance is decreased. 6. There is no previous study available for comparison. Cornelio Jimenez MD Pulmonary / Critical Care Fellow Division of Pulmonary, Critical Care, & Sleep Medicine [facility] I have personally reviewed pulmonary function test data and finding. I concur with fellow's note. Saba Wetzel MD Narrative Procedure Note Provider, MD Ana Rosa - 05/07/2018 IMPRESSION [facility] DEPARTMENT OF PULMONARY, CRITICAL CARE, AND SLEEP MEDICINE PULMONARY FUNCTION TESTS Xavier Sosa 66 y.o. There is no height or weight on file to calculate BMI. 08/02/2016 INTERPRETATION Please see technologist's comments mentioned above. SPIROMETRY: FEV1/FVC ratio is decreased . FEV1 is decreased. Forced vital capacity is normal. There is a significant response to bronchodilator administration. Inspection of the patient's flow-volume loops shows normal configurationof the inspiratory limbs and increased concavity of expiratory limbs. LUNG VOLUMES: Lung volumes by body plethysmography reveal an increased TLCand RV. DLCO: Diffusing capacity adjusted for Hb is within normal limits. AIRWAY RESISTANCE: The airway resistance is increased and the specificconductance is decreased. ARTERIAL BLOOD GAS was not drawn. IMPRESSION: 1. Moderate obstructive ventilatory limitation. 2. There is a significant response to bronchodilator administration. 3. Significant air trapping with hyperinflation. 4. Normal adjusted DLCO. 5. The airway resistance is increased and the specific conductance isdecreased. 6. There is no previous study available for comparison. Cornelio Jimenez MD Pulmonary / Critical Care Fellow Division of Pulmonary, Critical Care, & Sleep Medicine [facility] I have personally reviewed pulmonary function test data and finding. Iconcur with fellow's note. Saba Wetzel MD Ina Boyer MD RESPIRATORY THERAP Y ORDERABLES Performing Organization Address City/[facility]/ZIP Co de Phone Number [facility] * ECHO EDWARDO W POSS CARDIOVERSION (07/16/2016 12:00 AM CDT) Anatomical Region Laterality Modality Other 07/16/2016 Yoni Young CD ECHOCARDIOGRAPHY RAD IANT * HIV-1 HIV-2 ANTIGEN/ANTIBODY (07/08/2016 11:06 AM CDT) [facility] HIV Antigen/Antibod y 1 & 2 Non-reacti ve Non-react mariusz [facility] Comment: Neither HIV-1 p24 Antigen nor HIV-1/HIV-2 Antibodies are detected. Blood specimen (specimen) BLOOD SPECIMEN / Unknown 07/08/2016 11:06 AM CDT 07/08/2016 11:38 AM CDT Leona Tay DERRICK ENGINEER-[employer] LAB - HEMATO LOGY ORDERABLES [address] [phone] * NICOTINE METABOLITE URINE (07/08/2016 11:06 AM CDT) Pathologist [facility] [place] Cotinine Negative Cutoff=30 0 ng/mL [facility] ([facility]) Comment Drug Screen Comment [facility] ([facility]) Comment: This assay provides a preliminary unconfirmed analytical test result that may be suitable for the clinical management of patients in certain situations. For workplace drug testing programs, preliminary positive findings should always be confirmed by an alternative method. Some shyr-hps-edbrywc medications, as well as adulterants, may cause inaccurate results. Screen Only testing does not meet the [employer] Forensic Urine Drug Testing Program requirements as a forensic urine drug test for workplace testing. All clients must ensure that their testing program conforms to applicable state and federal laws and employment agreements. Urine specimen (specimen) URINE SPECIMEN OBTAINED BY CLEAN CATCH PROCEDURE / Unknown 07/08/2016 11:06 AM CDT 07/08/2016 12:10 PM CDT Narrative [facility]) - 07/09/2016 7:07 PM CDT Performed at: 01 - [address] [id number] Tread Builder: Garrick Baez MD, Phone: [phone] Performed at: 02 - Lab[address] [id number] Tread Builder: Maycol Coronado PhD, Phone: [phone] Ina Boyer MD LAB - URINE CHEMIS TRY ORDERABLES Performing Organization Address City/State/[facility] Co de Phone Number [facility]) * DRUG ABUSE PANEL 10-20+ETHANOL URINE NO CONFIRM (07/08/2016 11:06 AM CDT) Pathologist [facility] [place] Amphetamines Screen Urine Negative Negative: < 1000 ng/mL [facility] Barbiturates Screen Urine Negative Negative: < 200 ng/mL [facility] Benzodiazepine Screen Urine Negative Negative: < 200 ng/mL [facility] Opiates Urine Negative Negative: < 300 ng/mL [facility] Cocaine Metabolites Urine Negative Negative: < 300 ng/mL [facility] Phencyclidine Screen Urine Negative Negative: < 25 ng/ml [facility] Cannabinoids Screen Urine Negative Negative: <50 ng/mL [facility] Methadone Screen Urine Negative Negative: < 300 ng/mL [facility] Urine specimen (specimen) URINE / Unknown 07/08/2016 11:06 AM CDT 07/08/2016 12:10 PM CDT Narrative [facility] - 07/08/2016 12:37 PM CDT The Urine Toxicology Screening Panel does not screen for Propoxyphene, Meprobamate, Carisoprodol, Trazodone, zzhl-jcp-mybhvup medications and/or volatiles (Acetone, Isopropanol, Methanol or Ethylene Glycol). Ethanol, Salicylate, Acetaminophen, Tricyclic Antidepressants and several therapeutic drugs may be individually assayed in serum or plasma specimen. Toxicology testing by the [facility] is an aid to medical diagnosis and treatment of patients. No documented chain of custody was maintained. Results are intended to be used for clinical purposes only. Ina Boyer MD LAB - URINE CHEMIS TRY ORDERABLES Performing Organization Address City/[facility]/ZIP Co de Phone Number [address] [phone] * TRIGLYCERIDES BLOOD (07/08/2016 11:06 AM CDT) Pathologist [facility] [place] Triglycerides 61 <150 mg/dL [facility] Comment: ATP III Classification of Triglycerides: <150 mg/dL: Normal 150 - 199 mg/dL: Borderline High 200 - 400 mg/dL: High >500 mg/dL: Very High Blood specimen (specimen) BLOOD SPECIMEN / Unknown 07/08/2016 11:06 AM CDT 07/08/2016 11:38 AM CDT Leona Tay APRN-KILN PLACER LAB - [place] [address], [facility] [phone] * HEPATITIS C ANTIBODY (07/08/2016 11:06 AM CDT) Hepatitis C Antibody Non-react mariusz Non-reac tive [facility] Comment: Hepatitis C Antibody screen indicates no serologic evidence of past or current infection with Hepatitis C Virus. Patients with unexplained liver disease who are immunocompromised or suspected of having acute Hepatitis C infection may benefit from Nucleic Acid Test (TAMMI) for Hepatitis C Viral RNA to confirm Hepatitis C status. Blood specimen (specimen) BLOOD SPECIMEN / Unknown 07/08/2016 11:06 AM CDT 07/08/2016 11:38 AM CDT Leona Tay DERRICK ENGINEER-[employer] LAB - CHEMIS TRY ORDERABLES Performing Organization Address City/State/[facility] Co de Phone Number [address] [phone] * XR LUMBAR SPINE 2 OR 3VW (06/09/2016 10:31 AM CDT) Only the most recent of4 resultswithin the time period is included. Anatomical Region Laterality Modality Spine Other Impressions 06/09/2016 12:11 PM CDT Impression: Advanced multilevel degenerative disc and joint disease with unchanged minimal retrolisthesis of L4-5. Report dictated by Garrick Roberts M.D. (resident). This report was approved by Garrick Roberts M.D. on 06/09/2016 12:05 PM . I, Dr. DUONG WALLIS MD have personally reviewed and interpreted this examination/study. This report was electronically signed by DUONG WALLIS MD on 06/09/2016 12:11 PM . Narrative 06/09/2016 12:11 PM CDT Exam: Lumbar spine, 2 views Date: 06/09/2016 10:31 AM History: Spondylosis Findings: Comparison is made to the prior examination of 12/05/2015 and MRI of 03/21/2015. Minimal retrolisthesis of L4 on L5 is unchanged. There is advanced multilevel degenerative disc disease throughout the lumbar spine, most pronounced at L4-5. The vertebral bodies are normal height. No acute compression deformity, linear fracture, or offset is seen. 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 The bones are diffusely demineralized. There is extensive atherosclerotic calcification of the aortoiliac vessels. Procedure Note Duong Wallis MD - 02/27/2018 Exam: Lumbar spine, 2 views Date: 06/09/2016 10:31 AM History: Spondylosis Findings: Comparison is made to the prior examination of 12/05/2015 and MRI of03/21/2015. Minimal retrolisthesis of L4 on L5 is unchanged. There isadvanced multilevel degenerative disc disease throughout the lumbar spine,most pronounced at L4-5. The vertebral bodies are normal height. No acute compression deformity, linear fracture,or offset is seen. Facet osteoarthritis is present in the lower lumbarspine. The bones are diffusely demineralized. There is extensiveatherosclerotic calcification of the aortoiliac vessels. IMPRESSION Impression: Advanced multilevel degenerative disc and joint disease with unchangedminimal retrolisthesis of L4-5. Report dictated by Garrick Roberts M.D. (resident). This report was approved by Garrick Roberts M.D. on 06/09/2016 12:[address] DUONG Oleary MD have personally reviewed and interpreted thisexamination/study. This report was electronically signed by DUONG WALLIS MD on 06/09/201612:11 PM . Evan Sawyer MD DIAGNOSTIC IMAGING O RDERABLES * CT HEAD W CONTRAST (04/22/2016 3:30 PM CDT) Anatomical Region Laterality Modality Head Other Impressions 04/22/2016 5:31 PM CDT IMPRESSION: 1. No acute intracranial process. No abnormal intracranial enhancement. This report was approved by Austin Renteria on 04/22/2016 4:[address] BRUCE Oleary M.D. have personally reviewed and interpreted this examination/study. This report was electronically signed by BRUCE MONTANEZ M.D. on 04/22/2016 5:31 PM . Narrative 04/22/2016 5:31 PM CDT EXAMINATION: Computed tomography (CT) of the head with contrast HISTORY: Persistent headaches. History of Waldenstrom's macroglobulinemia. TECHNIQUE: CT of the head was performed following the uneventful administration of 100 mL Omnipaque 350 according to standard protocol. FINDINGS: No prior study is available for comparison. The presence of intravascular contrast reduces the sensitivity to detect subtle intracranial hemorrhage. Accounting for this, no acute intra- or extra-axial fluid collections are identified. There is mild cerebral volume loss. The ventricles are of normal size, shape, and morphology. The basilar cisterns are patent. No mass effect or midline shift is seen. The thapa-white matter differentiation is normal. There is vascular calcification of the carotid siphons. Serpiginous enhancement along the tentorium bilaterally most likely represents cortical vessels. No abnormally enhancing lesions are identified. Mild mucosal thickening in the left maxillary sinus, the visualized portions of the orbits, paranasal sinuses, and mastoids appear normal. No acute fracture is identified. Procedure Note Bruce Montanez MD - 02/27/2018 EXAMINATION: Computed tomography (CT) of the head with contrast HISTORY: Persistent headaches. History of Waldenstrom'smacroglobulinemia. TECHNIQUE: CT of the head was performed following the uneventfuladministration of 100 mL Omnipaque 350 according to standard protocol. FINDINGS: No prior study is available for comparison. The presence of intravascular contrast reduces the sensitivity to detectsubtle intracranial hemorrhage. Accounting for this, no acute intra- orextra-axial fluid collections are identified. There is mild cerebralvolume loss. The ventricles are of normal size, shape, and morphology. The basilar cisterns are patent. Nomass effect or midline shift is seen. The thapa-white matterdifferentiation is normal. There is vascular calcification of the carotidsiphons. Serpiginous enhancement along the tentorium bilaterally most likely represents cortical vessels. Noabnormally enhancing lesions are identified. Mild mucosal thickening in the left maxillary sinus, the visualizedportions of the orbits, paranasal sinuses, and mastoids appear normal. Noacute fracture is identified. IMPRESSION IMPRESSION: 1. No acute intracranial process. No abnormal intracranial enhancement. This report was approved by Austin Renteria on 04/22/2016 4:07 PM . I, Dr. BRUCE MONTANEZ M.D. have personally reviewed and interpreted thisexamination/study. This report was electronically signed by BRUCE MONTANEZ M.D. on 04/22/20165:31 PM . Ina Boyer MD CT ORDERABLES * VITAMIN D 25-HYDROXY D2+D3 BY TANDEM MASS (01/15/2016 9:10 AM AGENCY SERVICE COORDINATOR) Only the most recent of2 resultswithin the time period is included. Vitamin D, 25 Hydroxy Total 49 30 - 100 ng/mL [facility] Comment: Vitamin D Status 25-OH Vitamin D: Deficiency: <20 ng/mL Insufficiency: 20 - 29 ng/mL Optimal: > or = 30 ng/mL For 25-OH Vitamin D testing on patients on D2-supplementation and patients for whom quantitation of D2 and D3 fractions is required, the QuestAssureD(TM) 25-OH VIT D, (D2,D3), LC/MS/MS is recommended: order code 50814 (patients >2yrs). For more information on this test, go to: http://education.[employer]/faq/OKK394 (This link is being provided for informational/educational purposes only.) REPORT COMMENT: FASTING:NO Test Performed at: [facility] [id number] [place] [address] EUGENE REYNOSO DO,MPH Blood specimen (specimen) BLOOD SPECIMEN / Unknown 01/15/2016 9:10 AM AGENCY SERVICE COORDINATOR 01/15/2016 9:11 AM AGENCY SERVICE COORDINATOR Ina Boyer MD LAB - CHEMISTRY OR DERABLES Performing Organization Address [facility] Co de Phone Number [facility] * VISCOSITY (01/15/2016 9:10 AM AGENCY SERVICE COORDINATOR) Only the most recent of15 resultswithin the time period is included. Viscosity 1.6 1.5 - 1.9 Relative to H2O [facility] Comment: Test Performed at: [facility] [id number] [place] [address] BARBARA WILL MD PHD 01/15/2016 9:10 AM AGENCY SERVICE COORDINATOR 01/15/2016 9:11 AM AGENCY SERVICE COORDINATOR Ina Boyer MD LAB - HEMATOLOGY O RDERABLES Performing Organization Address [facility] Co de Phone Number [facility] * VITAMIN B12 (01/07/2016 9:51 AM AGENCY SERVICE COORDINATOR) Only the most recent of2 resultswithin the time period is included. Vitamin B12 566 200 - 1,100 pg/mL [facility] Comment: REPORT COMMENT: FASTING:NO Test Performed at: [facility] [id number] [place] [address] EUGENE REYNOSO DO,MPH Blood specimen (specimen) BLOOD SPECIMEN / Unknown 01/07/2016 9:51 AM AGENCY SERVICE COORDINATOR 01/07/2016 9:52 AM AGENCY SERVICE COORDINATOR Ina Boyer MD LAB - CHEMISTRY OR DERABLES [facility] * LAB HISTORICAL RESULTS-ONBASE (12/18/2015) 12/18/2015 Narrative [facility] - 01/29/2016 9:10 AM AGENCY SERVICE COORDINATOR Historical Provider LAB - CHEMISTRY O RDERABLES Performing Organization Address City/[facility] Co de Phone Number [facility] [address] [place] [address], [facility] * FACTOR VIII RISTOCETIN COFACTOR (11/14/2015 10:07 AM AGENCY SERVICE COORDINATOR) Ristocetin Cofactor 85 50 - 210 U/dL [facility] Comment: Biologic population variability within the Ristocetin CoFactor reference range is strongly correlated with ABO blood group phenotype. Blood group specific ranges are as follows: BLOOD TYPE O: Ristocetin CoFactor = 50-162 BLOOD TYPE A: Ristocetin CoFactor = 70-185 BLOOD TYPE B AND AB COMBINED: Ristocetin CoFactor = 80-210 The diagnosis of Von Willebrand Disease (VWD), particularly the milder forms, is difficult because so-called screening tests (Bleeding Time, APTT) are frequently normal. Even the results of more specific tests, such as Factor VIII, VWF-Antigen and Ristocetin Co-Factor Activity, may at times be normal because they are affected by a large number of factors and conditions. These include ABO Blood Group Phenotype, Estrogen-Oral contraceptive use, , use of aspirin and other medications, stress, etc. Thus, the diagnosis of mild VWD cannot be reliably excluded on the basis of a single set of normal results for VWF-Antigen and Ristocetin Co-Factor Activity. If the patient has a personal and/or family history of recurrent abnormal bleeding, comprehensive laboratory evaluation with subtyping should be considered since this has important implications for patient management. Blood specimen (specimen) BLOOD SPECIMEN / Unknown 11/14/2015 10:07 AM AGENCY SERVICE COORDINATOR 11/14/2015 10:30 AM AGENCY SERVICE COORDINATOR Ina Boyer MD LAB - COAGULATION ORDERABLES [address] [phone] * (ABNORMAL) FOLATE RBC (06/20/2015 10:01 AM CDT) Folate Hemolysate 489.9 Not Estab. ng/mL [facility] ([facility]) Hematocrit 37.1(L) 37.5 - 51.0 % [facility] ([facility]) Folate RBC 1320 499 - 1504 ng/mL [facility] ([facility]) Comment: Effective July 16, 2015 the reference interval for Folate, RBC will be changing to: > 498 Blood specimen (specimen) BLOOD SPECIMEN / Unknown 06/20/2015 10:01 AM CDT 06/20/2015 10:11 AM CDT Narrative [facility] ([facility]) - 06/21/2015 3:24 PM CDT Performed at: [address] [id number] Tread Builder: Maycol Coronado PhD, Phone: [phone] Leona Sina Tay DERRICK ENGINEER-[employer]ILN PLACER LAB - CHEMIS TRY ORDERABLES [facility] ([facility]) * MRI LUMBAR SPINE WWO CONTRAST (03/21/2015 2:28 PM CDT) Anatomical Region Laterality Modality Spine Other Impressions 03/21/2015 4:14 PM CDT IMPRESSION: 1. 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 2. Type I Modic changes are noted at the inferior endplate of L1. This report was approved by Jitendra De León M.D. on 03/21/2015 3:19 PM . I, Dr. ROQUE RENO M.D. have personally reviewed and interpreted this examination/study. This report was electronically signed by ROQUE RENO M.D. on 03/21/2015 4:14 PM . Narrative 03/21/2015 4:14 PM CDT EXAMINATION: Magnetic resonance imaging (MRI) of the lumbar spine without and with contrast HISTORY: Numbness in back and legs. TECHNIQUE: MRI of the lumbar spine was performed prior to and following the uneventful administration of 10 mL of intravenous gadolinium contrast according to standard protocol. FINDINGS: No prior exams are available for comparison. The alignment is normal. Vertebral bodies are normal in height without evidence of compression fractures. Marrow signal intensity is normal. The conus medullaris terminates at the level of L1 and the distal spinal cord signal intensity is normal. There is multilevel degenerative disc disease and Schmorl's node seen in the lumbar spine. Type I Modic changes are noted at the inferior endplate of L1. No enhancing lesions are seen. No soft tissue abnormality is identified. L1-L2: There is mild posterior disc bulge. There is mild central canal stenosis. There is mild bilateral facet osteoarthritis. There is no neural foraminal stenosis. L2-L3: There is mild posterior disc bulge with ligamentum flavum hypertrophy. There is mild central canal stenosis. There is mild bilateral facet osteoarthritis. There is no neural foraminal stenosis. L3-L4: There is mild posterior disc bulge. There is mild central canal stenosis. There is moderate bilateral facet osteoarthritis. There is mild left neural foraminal stenosis. L4-L5: There is mild posterior disc bulge. There is moderate central canal stenosis. There is moderate bilateral facet osteoarthritis. There is mild bilateral neural foraminal stenosis. L5-S1: There is mild right paracentral disc bulge. There is mild central canal stenosis. There is moderate bilateral facet osteoarthritis. There is severe right and mild left neural foraminal stenosis. Procedure Note Roque Reno MD - 02/27/2018 EXAMINATION: Magnetic resonance imaging (MRI) of the lumbar spine withoutand with contrast HISTORY: Numbness in back and legs. TECHNIQUE: MRI of the lumbar spine was performed prior to and followingthe uneventful administration of 10 mL of intravenous gadolinium contrastaccording to standard protocol. FINDINGS: No prior exams are available for comparison. The alignment is normal. Vertebral bodies are normal in height withoutevidence of compression fractures. Marrow signal intensity is normal. Theconus medullaris terminates at the level of L1 and the distal spinal cordsignal intensity is normal. There is multilevel degenerative disc disease and Schmorl's node seen in thelumbar spine. Type I Modic changes are noted at the inferior endplate ofL1. No enhancing lesions are seen. No soft tissue abnormality isidentified. L1-L2: There is mild posterior disc bulge. There is mild central canalstenosis. There is mild bilateral facet osteoarthritis. There is no neuralforaminal stenosis. L2-L3: There is mild posterior disc bulge with ligamentum flavumhypertrophy. There is mild central canal stenosis. There is mild bilateralfacet osteoarthritis. There is no neural foraminal stenosis. L3-L4: There is mild posterior disc bulge. There is mild central canalstenosis. There is moderate bilateral facet osteoarthritis. There is mildleft neural foraminal stenosis. L4-L5: There is mild posterior disc bulge. There is moderate central canalstenosis. There is moderate bilateral facet osteoarthritis. There is mildbilateral neural foraminal stenosis. L5-S1: There is mild right paracentral disc bulge. There is mild centralcanal stenosis. There is moderate bilateral facet osteoarthritis. There issevere right and mild left neural foraminal stenosis. IMPRESSION IMPRESSION: 1. Multilevel degenerative disc and joint disease in the lumbar spineresulting in up to moderate central canal stenosis at L4-L5 and severeright neural foraminal stenosis at L5-S1 as described above. 2. Type I Modic changes are noted at the inferior endplate of L1. This report was approved by Jitendra De León M.D. on 03/21/2015 3:19 PM. I, Dr. ROQUE RENO M.D. have personally reviewed and interpreted thisexamination/study. This report was electronically signed by ROQUE RENO M.D. on 03/21/20154:14 PM . Ina Boyer MD MR ORDERABLES * LAB MISC TEST (03/16/2015 1:15 PM CDT) Only the most recent of4 resultswithin the time period is included. [facility] Reference Lab Results SEE SCANNED REPORT [facility] REF LAB NON INTERF Other (qualifier value) BONE MARROW SPECIMEN / Unknown 03/16/2015 1:15 PM CDT 03/16/2015 2:09 PM CDT Ina Boyer MD LAB SEND OUT Performing Organization Address City/[facility]/ZIP Co de Phone Number [facility] REF LAB NON INTERF * CRYOGLOBULIN QUALITATIVE (03/15/2015 12:02 PM CDT) Only the most recent of2 resultswithin the time period is included. Pathologist [facility] [place] Cryoglobulin Qualitative Negative Negative [facility] Blood specimen (specimen) BLOOD SPECIMEN / Unknown 03/15/2015 12:02 PM CDT 03/19/2015 12:21 PM CDT Ina Boyer MD LAB - CHEMISTRY OR DERABLES Performing Organization Address [facility] Co de Phone Number [address] [phone] * ALDOLASE (03/15/2015 10:42 AM CDT) [facility] Aldolase 4.1 3.3 - 10.3 U/L [facility] ([facility]) Blood specimen (specimen) BLOOD SPECIMEN / Unknown 03/15/2015 10:42 AM CDT 03/15/2015 10:53 AM CDT Narrative [facility] ([facility]) - 03/16/2015 5:17 PM CDT Performed at: [address] [place] [address] [id number] Tread Builder: Waqar Santos PhD, Phone: [phone] Teresa Mattson MD LAB - CHEMISTRY KIT CASTELLON Performing Organization Address City/[facility] Co de Phone Number [facility] ([facility]) * CK BLOOD (03/15/2015 10:42 AM CDT) Pathologist [facility] [place] CK Total 34 30 - 200 Units/L [facility] Blood specimen (specimen) BLOOD SPECIMEN / Unknown 03/15/2015 10:42 AM CDT 03/15/2015 10:52 AM CDT Teresa Mattson MD LAB - CHEMISTRY KIT CASTELLON Performing Organization Address [facility]/ZIP Co de Phone Number [address] [phone] * (ABNORMAL) CELL COUNT CSF (01/24/2015 10:39 AM AGENCY SERVICE COORDINATOR) Color Fluid Colorless Colorless, Straw [facility] Clarity Fluid Clear Clear [facility] Volume Fluid 7.0 mL [facility] WBC Calculation Fluid 1 0 - 5 /uL [facility] RBC Calculation 32(H) 0 /uL [facility] Xanthochromia Fluid Negative Negative [facility] Differential Manual Differential to follow. [facility] Spinal fluid (substance) CEREBROSPINAL FLUID SPECIMEN / Unknown 01/24/2015 10:39 AM AGENCY SERVICE COORDINATOR 01/24/2015 10:39 AM AGENCY SERVICE COORDINATOR Teresa Mattson MD LAB - BODY FLUID ORD JENNIFER Performing Organization Address [facility]/ZIP Co de Phone Number [address] [phone] * CELL COUNT W DIFF CSF (01/24/2015 10:39 AM AGENCY SERVICE COORDINATOR) Spinal fluid (substance) CEREBROSPINAL FLUID SPECIMEN / Unknown 01/24/2015 10:39 AM AGENCY SERVICE COORDINATOR Narrative [facility] - 01/24/2015 11:10 AM AGENCY SERVICE COORDINATOR The following orders were created for panel order SPINAL FLUID CELL COUNT. Procedure Abnormality Status --------- ------ SPINAL FLUID CELL COUNT[[id number]] Abnormal Final result MANUAL DIFFERENTIAL FLUID[[id number]] Normal Final result Please view results for these tests on the individual orders. Teresa Mattson MD LAB - BODY FLUID ORD JENNIFER Performing Organization Address City/[facility]/ZIP Co de Phone Number [facility] [address] * (ABNORMAL) PROTEIN CSF (01/24/2015 10:38 AM AGENCY SERVICE COORDINATOR) Protein CSF 66(H) 15 - 45 mg/dL [facility] Spinal fluid (substance) CEREBROSPINAL FLUID SPECIMEN / Unknown 01/24/2015 10:38 AM AGENCY SERVICE COORDINATOR 01/24/2015 10:38 AM AGENCY SERVICE COORDINATOR Teresa Mattson MD LAB - BODY FLUID ORD ERABLES [address] [phone] * GLUCOSE CSF (01/24/2015 10:38 AM AGENCY SERVICE COORDINATOR) Glucose CSF 49 40 - 70 mg/dL [facility] Spinal fluid (substance) CEREBROSPINAL FLUID SPECIMEN / Unknown 01/24/2015 10:38 AM AGENCY SERVICE COORDINATOR 01/24/2015 10:38 AM AGENCY SERVICE COORDINATOR Teresa Mattson MD LAB - BODY FLUID ORD ERABLES Performing Organization Address City/State/[facility] Co de Phone Number [address] [phone] * FL LUMBAR PUNCTURE (01/24/2015 10:01 AM AGENCY SERVICE COORDINATOR) Anatomical Region Laterality Modality Spine Other Impressions 01/24/2015 11:01 AM AGENCY SERVICE COORDINATOR IMPRESSION: 1. Successful lumbar puncture under fluoroscopic guidance at L3-L4. This report was approved by Marli Fournier M.D. on 01/24/2015 10:48 AM . I, Dr. ROQUE RENO M.D. have personally reviewed and interpreted this examination/study. This report was electronically signed by ROQUE RENO M.D. on 01/24/2015 11:01 AM . 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 TECHNIQUE: The risks and benefits of the lumbar puncture including, but not limited to, infection, bleeding, seizure, epidural hematoma, post spinal headache, cerebrospinal fluid (CSF) leak requiring blood patch procedure, nausea, vomiting, irritation or damage to nerves causing pain or permanent injury were discussed with the patient. After alternatives were discussed and the opportunity to ask questions was provided, the patient acknowledged understanding, gave verbal and written consent, and wished to proceed. Attending physician: Dr. Reno was present for the redding portions of this procedure. The L3-4 level was localized with fluoroscopy. The skin overlying this level was then sterilely prepped, draped, and infiltrated with 1% lidocaine for local anesthesia. Under intermittent fluoroscopic guidance, a 22 gauge 5 inch spinal needle was inserted into the thecal sac at this level. Clear CSF was identified. A total of 19 ml of CSF was removed and placed into 4 specimen tubes. The patient tolerated the procedure well. The patient was then transferred to the director career unit for further observation and 3 hours of bedrest. OPENING PRESSURE: Not performed. 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 TECHNIQUE: The risks and benefits of the lumbar puncture including, butnot limited to, infection, bleeding, seizure, epidural hematoma, postspinal headache, cerebrospinal fluid (CSF) leak requiring blood patchprocedure, nausea, vomiting, irritation or damage to nerves causing pain or permanent injury were discussed withthe patient. After alternatives were discussed and the opportunity to askquestions was provided, the patient acknowledged understanding, gaveverbal and written consent, and wished to proceed. Attending physician: Dr. Reno was present for the redding portions of thisprocedure. The L3-4 level was localized with fluoroscopy. The skin overlying thislevel was then sterilely prepped, draped, and infiltrated with 1%lidocaine for local anesthesia. Under intermittent fluoroscopic guidance,a 22 gauge 5 inch spinal needle was inserted into the thecal sac at this level. Clear CSF was identified. A total of 19 ml of CSF was removed and placedinto 4 specimen tubes. The patient tolerated the procedure well. Thepatient was then transferred to the director career unit for furtherobservation and 3 hours of bedrest. OPENING PRESSURE: Not performed. FLUOROSCOPY TIME: 39 seconds IMPRESSION IMPRESSION: 1. Successful lumbar puncture under fluoroscopic guidance at L3-L4. This report was approved by Marli Fournier M.D. on 01/24/2015 10:48 AM. I, Dr. ROQUE RENO M.D. have personally reviewed and interpreted thisexamination/study. This report was electronically signed by ROQUE RENO M.D. on 01/24/201511:01 AM . Teresa Mattson MD FLUOROSCOPY ORDERABL ES * CULTURE CYTOMEGALOVIRUS (01/24/2015 9:40 AM AGENCY SERVICE COORDINATOR) Cytomegalovirus Culture Comment [facility] ([facility]) Comment:No Cytomegalovirus i solated. Fluid specimen (specimen) BODY FLUID SPECIMEN / Unknown 01/24/2015 9:40 AM AGENCY SERVICE COORDINATOR 01/24/2015 1:27 PM AGENCY SERVICE COORDINATOR Narrative [facility] ([facility]) - 02/02/2015 6:20 AM AGENCY SERVICE COORDINATOR Specimen Sources->Body Fluid CSF Performed at: [address] [place] [address] [id number] Tread Builder: Eugene Boswell MD, Phone: [phone] Teresa Mattson MD LAB - MICROBIOLOGY O RDERABLES [facility]) * (ABNORMAL) OLIGOCLONAL BANDS CSF+BLOOD PANEL (01/24/2015 9:40 AM AGENCY SERVICE COORDINATOR) Oligoclonal Bands CSF 0 0 - 1 Bands [facility]) IgG 214(L) 768 - 1632 mg/dL [facility]) Comment: REFERENCE INTERVAL: Immunoglobulin G Access complete set of age- and/or gender-specific reference intervals for this test in the [facility] Laboratory Test Directory ([email or web address]). IgG CSF 1.6 0.0 - 6.0 mg/dL [facility]) Albumin by Nephelometry 3320(L) 3500 - 5200 mg/dL [facility] ([facility]) Albumin CSF 42(H) 0 - 35 mg/dL [facility] ([facility]) Albumin Index 12.7(H) 0.0 - 9.0 ratio [facility] ([facility]) IgG Index 0.59 0.28 - 0.66 ratio [facility] ([facility]) IgG/Albumin Ratio CSF 0.04(L) 0.09 - 0.25 ratio [facility] ([facility]) Oligoclonal Bands CSF Negative Negative [facility] ([facility]) IgG Synthesis Rate CSF 1.3 <=8.0 mg/d [facility] ([facility]) Interpretation See Note [facility] ([facility]) Comment: Isoelectric focusing/immunofixation reveals no oligoclonal bands in either the CSF or the serum. This is considered to be a negative result for oligoclonal bands. Approximately 5 percent of patients with clinically definitive multiple sclerosis will have a negative result. An elevated albumin index indicates damage to the blood-CSF barrier or contamination of CSF with blood during sample collection. An index value less than 9 is considered consistent with an intact barrier. Values of 9-14 are interpreted as slight impairment, of 14-30 as moderate impairment, and of 30-100 as severe impairment. Values exceeding 100 indicate complete breakdown of the barrier. Other (qualifier value) CEREBROSPINAL FLUID SPECIMEN / Unknown 01/24/2015 9:40 AM AGENCY SERVICE COORDINATOR 01/24/2015 10:08 AM AGENCY SERVICE COORDINATOR Teresa Mattson MD LAB - BODY FLUID ORD [employer] [facility]) * ANGIOTENSIN CONVERTING ENZYME CSF (01/24/2015 9:40 AM AGENCY SERVICE COORDINATOR) Angiotensin-Converti ng Enzyme CSF 1.9 0.0 - 2.5 U/L [facility] ([facility]) Comment: This test was developed and its performance characteristics determined by [employer]. The U.S. Food and Drug Administration has not approved or cleared this test; however, FDA clearance or approval is not currently required for clinical use. The results are not intended to be used as the sole means for clinical diagnosis or patient management decisions. Spinal fluid (substance) CEREBROSPINAL FLUID SPECIMEN / Unknown 01/24/2015 9:40 AM AGENCY SERVICE COORDINATOR 01/24/2015 1:20 PM AGENCY SERVICE COORDINATOR Teresa Mattson MD LAB - BODY FLUID ORD ERABLES [facility]) * CT GUIDED NEEDLE PLACEMENT (01/18/2015 9:45 AM AGENCY SERVICE COORDINATOR) Only the most recent of2 resultswithin the time period is included. Anatomical Region Laterality Modality Abdomen Other Impressions 01/18/2015 4:31 PM AGENCY SERVICE COORDINATOR Impression: Ultrasound guided biopsy of subcutaneous fat on the right lateral abdominal wall, as described above. Note: Pathology report is pending at the time of this dictation. I Dr. Salcedo, was present and performed/supervised the entire procedure. I, Dr. SEVEN SALCEDO M.D. have personally reviewed and interpreted this examination/study. This report was electronically signed by SEVEN SALCEDO M.D. on 01/18/2015 4:31 PM . 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 Operators: 1. Dr. Salcedo, Attending Physician 2. Dr. Hess, Resident Physician Anesthesia: 1. Local anesthesia - 8 ml of 1 % lidocaine Procedure: 1. Limited ultrasound evaluation of the abdomen . 2. Ultrasound guided biopsy of superficial abdominal fat . Duration of Procedure: Appx. 15 minutes. Procedure in Detail: The procedure and possible complications were explained to the patient in detail, and informed consent was obtained. The patient was placed in a supine position on the ultrasound table and a limited multiplanar ultrasound evaluation was performed. The limited ultrasound examination, demonstrating subcutaneous fat. Patient received intravenous conscious sedation with Versed and Fentanyl. Patient?s vital signs were monitored by a qualified radiology nurse throughout the procedure. The marked site and skin around the region was prepped and draped in a sterile fashion. Local anesthesia was provided by the injection with 1% Lidocaine. A 17 gauge co-axial needle system was advanced in stages under ultrasound guidance. The needle entry was documented. With needle tip within the subcutaneous fat, 4 core samples were acquired with 18 gauge biopsy gun. The samples were sent to pathology service. The patient tolerated the procedure. The patient was transferred to the holding area in stable condition. Procedure Note Seven Salcedo MD - 02/27/2018 History: 64-year-old male presenting with demyelinating polyneuropathy andWahlstrom macroglobulinemia who is referred for a fat pad biopsy with theclinical question of amyloidosis. Operators: 1. Dr. Salcedo, Attending Physician 2. Dr. Hess, Resident Physician Anesthesia: 1. Local anesthesia - 8 ml of 1 % lidocaine Procedure: 1. Limited ultrasound evaluation of the abdomen . 2. Ultrasound guided biopsy of superficial abdominal fat . Duration of Procedure: Appx. 15 minutes. Procedure in Detail: The procedure and possible complications wereexplained to the patient in detail, and informed consent was obtained. The patient was placed in a supine position on the ultrasound table and alimited multiplanar ultrasound evaluation was performed. The limitedultrasound examination, demonstrating subcutaneous fat. Patient received intravenous conscious sedation with Versed and Fentanyl.Patient?s vital signs were monitored by a qualified radiology nursethroughout the procedure. The marked site and skin around the region was prepped and draped in asterile fashion. Local anesthesia was provided by the injection with 1%Lidocaine. A 17 gauge co-axial needle system was advanced in stages underultrasound guidance. The needle entry was documented. With needle tip within the subcutaneous fat, 4 coresamples were acquired with 18 gauge biopsy gun. The samples were sent topathology service. The patient tolerated the procedure. [facility]. IMPRESSION Impression: Ultrasound guided biopsy of subcutaneous fat on the rightlateral abdominal wall, as described above. Note: Pathology report is pending at the time of this dictation. I Dr. Salcedo, was present and performed/supervised the entireprocedure. I, Dr. SEVEN SALCEDO M.D. have personally reviewed and interpretedthis examination/study. This report was electronically signed by SEVEN SALCEDO M.D. on01/18/2015 4:31 PM . Ina Boyer MD CT ORDERABLES * MRI CARDIAC STUDY WWO CONTRAST (01/15/2015 1:06 PM AGENCY SERVICE COORDINATOR) Anatomical Region Laterality Modality Other Impressions 01/17/2015 5:07 PM AGENCY SERVICE COORDINATOR IMPRESSION: 1. No evidence of delayed myocardial enhancement to suggest amyloidosis. Report dictated by Chely Haynes M.D. (resident). This report was approved by Chely Haynes M.D. on 01/17/2015 10:[address] Yue Oleary M.D. have personally reviewed and interpreted this examination/study. This report was electronically signed by Yue KELSEY M.D. on 01/17/2015 5:07 PM . Narrative 01/17/2015 5:07 PM AGENCY SERVICE COORDINATOR EXAMINATION: Cardiac MRI Morphology and Function without and with contrast HISTORY: 64-year-old male with Waldenstrom's macroglobulinemia. TECHNIQUE: Multiplanar MR imaging of the heart utilizing HASTE and TRUFISP imaging sequences was performed before and after the administration of intravenous gadolinium contrast agent according to a custom protocol monitored by the radiologist. Estimated GFR: > 60 Creatinine: 0.9 mg/dL Contrast: 50 mL MultiHance HR: 95 bpm, Height: 76 in, Weight: 212 lb., BSA 2.27 meters squared FINDINGS: Morphology: There is a left-sided aortic arch. The pulmonary artery and aorta are normal in caliber. There is no pericardial effusion. The heart size is normal. No wall motion abnormality is seen. After administration of contrast, delayed images demonstrate normal washout of contrast without evidence of abnormal enhancement. Valves: No significant dephasing jets are identified to suggest stenosis or regurgitation. Left ventricular function are as follows: Ejection fraction 84% End-diastolic volume 100 ml (corrected 44 mL) End-systolic volume 15.6 ml (corrected 6.9 mL) Stroke-volume 84.3 ml (corrected 37.1 mL) Noncardiac findings: The visible lungs are clear. The visible portions of the liver and spleen are unremarkable. Dr. Dallas (s) also participated in this examination. Procedure Note Elvira Kelsey MD - 02/27/2018 EXAMINATION: Cardiac MRI Morphology and Function without and withcontrast HISTORY: 64-year-old male with Waldenstrom's macroglobulinemia. TECHNIQUE: Multiplanar MR imaging of the heart utilizing HASTE and TRUFISPimaging sequences was performed before and after the administration ofintravenous gadolinium contrast agent according to a custom protocolmonitored by the radiologist. Estimated GFR: > 60 Creatinine: 0.9 mg/dL Contrast: 50 mL MultiHance HR: 95 bpm, Height: 76 in, Weight: 212 lb., BSA 2.27 meters squared FINDINGS: Morphology: There is a left-sided aortic arch. The pulmonary artery andaorta are normal in caliber. There is no pericardial effusion. The heartsize is normal. No wall motion abnormality is seen. After administration of contrast, delayed images demonstrate normalwashout of contrast without evidence of abnormal enhancement. Valves: No significant dephasing jets are identified to suggest stenosisor regurgitation. Left ventricular function are as follows: Ejection fraction 84% End-diastolic volume 100 ml (corrected 44 mL) End-systolic volume 15.6 ml (corrected 6.9 mL) Stroke-volume 84.3 ml (corrected 37.1 mL) Noncardiac findings: The visible lungs are clear. The visible portions ofthe liver and spleen are unremarkable. (sJef Haynes also participated in this examination. IMPRESSION IMPRESSION: 1. No evidence of delayed myocardial enhancement to suggest amyloidosis. Report dictated by Chely Haynes M.D. (resident). This report was approved by Chely Haynes M.D. on 01/17/2015 10:37 AM. IDr. Yue M.D. have personally reviewed and interpreted thisexamination/study. This report was electronically signed by Yue KELSEY M.D. on01/17/2015 5:07 PM . Ina Boyer MD MR ORDERABLES * ACTH 60 MINUTES (01/08/2015 1:33 PM AGENCY SERVICE COORDINATOR) Cortisol 60 Min 22.5 >=20.0 mcg/dL [facility] Blood specimen (specimen) BLOOD SPECIMEN / Unknown 01/08/2015 1:33 PM AGENCY SERVICE COORDINATOR 01/08/2015 1:54 PM AGENCY SERVICE COORDINATOR Ina Boyer MD LAB - CHEMISTRY OR DERABLES [address] [phone] * (ABNORMAL) ACTH 30 MINUTES (01/08/2015 1:10 PM AGENCY SERVICE COORDINATOR) Pathologist [facility] [place] Cortisol 30 Min 18.8(L) >=20.0 mcg/dL [facility] Blood specimen (specimen) BLOOD SPECIMEN / Unknown 01/08/2015 1:10 PM AGENCY SERVICE COORDINATOR 01/08/2015 1:16 PM AGENCY SERVICE COORDINATOR Ina Boyer MD LAB - CHEMISTRY OR DERABLES Performing Organization Address [facility] Co de Phone Number [facility] [address] [place] [address] * LAB MISCELLANEOUS TEST 3 (01/08/2015 12:00 PM AGENCY SERVICE COORDINATOR) [facility] Reference Lab Results SEE SCANNED RESULT [facility] RE[facility] NON INTERF Other (qualifier value) 01/08/2015 12:00 PM AGENCY SERVICE COORDINATOR 01/08/2015 12:45 PM AGENCY SERVICE COORDINATOR Ina Boyer MD LAB - CHEMISTRY OR DERABLES Performing Organization Address [facility] de Phone Number [facility] REF [facility] NON INTERF * LAB MISCELLANEOUS TEST 2 (01/08/2015 11:19 AM AGENCY SERVICE COORDINATOR) [facility] Reference Lab Results SEE SCANNED REPORT [facility] NON INTERF Other (qualifier value) 01/08/2015 11:19 AM AGENCY SERVICE COORDINATOR 01/08/2015 12:06 PM AGENCY SERVICE COORDINATOR Ina Boyer MD LAB - CHEMISTRY OR DERABLES Performing Organization Address [facility] Co de Phone Number [facility] NON INTERF * ACTH CORTISOL BASELINE (01/08/2015 10:30 AM AGENCY SERVICE COORDINATOR) [facility] Cortisol Baseline 9.4 No Reference Range Established mcg/dL [facility] Blood specimen (specimen) BLOOD SPECIMEN / Unknown 01/08/2015 10:30 AM AGENCY SERVICE COORDINATOR 01/08/2015 12:06 PM AGENCY SERVICE COORDINATOR Ina Boyer MD LAB - CHEMISTRY OR DERABLES [address] [phone] * GM1 IGG/IGM ANTIBODY PANEL (01/08/2015 10:30 AM AGENCY SERVICE COORDINATOR) Anti-GM1 Antibody IgM <1:100 titer [facility] ([facility]) Comment: Reference Range: Negative: < 1:100 titer Positive: => 1:100 titer Titers of less than 1:400 may not be clinically significant. We suggest clinical correlation to ascertain the significance of the low titers. Antibodies against glycolipids (GM1, GD1a, GD1b, GQ1b, asialo GM1, and sulfatides) are present in patients with Guillain-T[place] syndrome (GBS), IgM paraproteinemic neuropathy, and chronic demyelinating polyneuropathy (CIDP). Antibodies to one or more glycolipids are present in 60-70% of patients with GBS. The titers of anti-glycolipid antibodies are higher in acute phase and decrease in association with clinical improvement. Antibodies against GM1 and/or GD1b are frequently present in acute phase GBS. The two antibodies together occur in about 20% of these cases, anti-GM1 without anti-GD1b antibodies in about 10% and anti-GD1b without anti-GM1 antibodies in about 10% of GBS patients. Antibodies against GQ1b of IgG isotype are present in 95% of patients with Schulte Lopez syndrome (MFS). The titers of these antibodies fluctuates with disease activity. IgM paraproteinemia is often associated with peripheral neuropathies. These antibodies are present in one half of patients with specificity for SGPG, GD1b and other gangliosides. Anti-GM1 IgM antibodies are usually associated with motor-dominant or sensorimotor neuropathies. These antibodies are also elevated in diseases other than multifocal neuropathies such as GBS, CIDP and other immunological diseases. *This test has been developed and performance parameters have been validated by [employer] This test has not been approved by the U.S. Food and Drug Administration (FDA); however, [place] FDA approval is not required for clinical use. It is not intended that clinical diagnosis and patient management decisions be made using these results alone. This test has been validated using serum samples. The [employer] has not determined the efficacy of this test when performed on CSF, plasma, joint or pleural fluid specimens. The performance characteristics of this test were determined by [employer] Anti-GM1 Antibody IgG <1:100 titer [facility] ([facility]) Comment: Reference Range: Negative: < 1:100 titer Positive: => 1:100 titer Blood specimen (specimen) BLOOD SPECIMEN / Unknown 01/08/2015 10:30 AM AGENCY SERVICE COORDINATOR 01/08/2015 12:06 PM AGENCY SERVICE COORDINATOR Narrative [facility] ([facility]) - 01/17/2015 9:18 AM AGENCY SERVICE COORDINATOR Performed at: 01 - [facility] [address] [place] [address] [id number] Tread Builder: Pedro Barber PhD, Phone: [phone] Ina Boyer MD LAB - CHEMISTRY OR DERABLES Performing Organization Address [facility] Co de Phone Number [facility] ([facility]) * TROPONIN I (01/08/2015 10:30 AM AGENCY SERVICE COORDINATOR) Troponin I <0.032 <0.032 ng/mL [facility] Blood specimen (specimen) BLOOD SPECIMEN / Unknown 01/08/2015 10:30 AM AGENCY SERVICE COORDINATOR 01/08/2015 12:20 PM AGENCY SERVICE COORDINATOR Ina Boyer MD LAB - CHEMISTRY OR DERABLES Performing Organization Address [facility] Co de Phone Number [address] [phone] * (ABNORMAL) [id number] BLOOD (01/08/2015 10:30 AM AGENCY SERVICE COORDINATOR) Beta-2 Microglobulin 5.2(H) 1.0 - 2.6 mg/L [facility] Blood specimen (specimen) BLOOD SPECIMEN / Unknown 01/08/2015 10:30 AM AGENCY SERVICE COORDINATOR 01/08/2015 12:01 PM AGENCY SERVICE COORDINATOR Ina Boyer MD LAB - CHEMISTRY OR DERABLES Performing Organization Address [facility] Co de Phone Number [address] [phone] * IRON BLOOD (01/08/2015 10:30 AM AGENCY SERVICE COORDINATOR) Iron 57 50 - 175 mcg/dL [facility] Blood specimen (specimen) BLOOD SPECIMEN / Unknown 01/08/2015 10:30 AM AGENCY SERVICE COORDINATOR 01/08/2015 12:20 PM AGENCY SERVICE COORDINATOR Narrative [facility] - 01/08/2015 1:31 PM AGENCY SERVICE COORDINATOR For transferrin saturation from [facility] Lab order this and Transferrin Ina Boyer MD LAB - CHEMISTRY OR DERABLES [address] [phone] * HEPATITIS B CORE ANTIBODY (01/08/2015 10:30 AM AGENCY SERVICE COORDINATOR) HBc Antibody Total Non-reacti ve Non-reacti ve [facility] Blood specimen (specimen) BLOOD SPECIMEN / Unknown 01/08/2015 10:30 AM AGENCY SERVICE COORDINATOR 01/08/2015 12:01 PM AGENCY SERVICE COORDINATOR Ina Boyer MD LAB - CHEMISTRY OR DERABLES Performing Organization Address [facility] Co de Phone Number [address] [phone] * HEPATITIS B SURFACE ANTIGEN W RFLX CONFIRMATION (01/08/2015 10:30 AM AGENCY SERVICE COORDINATOR) Hepatitis B Virus Surface Antigen Non-reacti ve Non-reacti ve [facility] Blood specimen (specimen) BLOOD SPECIMEN / Unknown 01/08/2015 10:30 AM AGENCY SERVICE COORDINATOR 01/08/2015 12:01 PM AGENCY SERVICE COORDINATOR Ina Boyer MD LAB - CHEMISTRY OR DERABLES Performing Organization Address [facility]/ZIP Co de Phone Number [address] [phone] * TSH (01/08/2015 10:30 AM AGENCY SERVICE COORDINATOR) TSH 2.948 0.350 - 4.940 uIU/mL [facility] Blood specimen (specimen) BLOOD SPECIMEN / Unknown 01/08/2015 10:30 AM AGENCY SERVICE COORDINATOR 01/08/2015 12:20 PM AGENCY SERVICE COORDINATOR Leona Tay DERRICK ENGINEER-KILN PLACER LAB - CHEMIS TRY ORDERABLES [address] [phone] * T4 FREE (01/08/2015 10:30 AM AGENCY SERVICE COORDINATOR) T4 Free 1.1 0.7 - 1.5 ng/dL [facility] Blood specimen (specimen) BLOOD SPECIMEN / Unknown 01/08/2015 10:30 AM AGENCY SERVICE COORDINATOR 01/08/2015 12:20 PM AGENCY SERVICE COORDINATOR Leona Andino Jasvir DERRICK ENGINEER-KILN PLACER LAB - CHEMIS TRY ORDERABLES Performing Organization Address City/[facility]/ZIP Co de Phone Number [address] [phone] * HAPTOGLOBIN (01/08/2015 10:30 AM AGENCY SERVICE COORDINATOR) Haptoglobin 158 14 - 258 mg/dL [facility] Blood specimen (specimen) BLOOD SPECIMEN / Unknown 01/08/2015 10:30 AM AGENCY SERVICE COORDINATOR 01/08/2015 12:01 PM AGENCY SERVICE COORDINATOR Ina Boyer MD LAB - CHEMISTRY OR DERABLES Performing Organization Address City/[facility]/ZIP Co de Phone Number [address] [phone] Care Teams Esthetician Makeup Artist Relationship Specialty Start Date End Date Billy Jalloh MD [address] [place] [address] [address] [place] [address] PCP - General 07/08/16 Jamie Arboleda MD [address] [place] [address] Pulmonary Disease 07/08/18 Ina Boyer MD [address] [place] [address] Hematology and Oncology 07/08/18 Yoni Young, SHERRILL [address] [place] [address] Cardiology 07/08/18 Vadim Xiong MD [address] [place] [address] Gastroenterology 12/02/18
--- OUTSIDE RECORDS SUMMARY | 2025-01-25 10:54 | XMS_ITS ---
Author Organization [facility] Address [address] 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 Other Current Plans SUPPORT (IMMUNE GLOBULIN 10%) (IVIG)* Plan Start Date:06/28/2018 Plan Provider:Leona Tay APRN-VOLTAGE TESTER Linked Problems Hypogammaglobulinemia, acqui red (HCC) Treatment Medications Current Day (Day 1 , 28 - Planned for 12/12/2021) Next Day (Day 1, 29 - Planned for 02/06/2022) No medications scheduled. No medications schedul ed. No medications scheduled. Past Plans ONCOLOGY TREATMENT Plan Name Start Date Discontinue Date Treatment Medications Discontinue Reason Plan Provider Cycles LYMPHOMA (RITUXIMAB) MAINT Q3 MONTHS 04/29/2018 06/21/2018 riTUXimab (Rituxan)riTUX imab (Rituxan) infusion Not Tolerated Ruben Park MD 1 of 8 cycles started Radiation Treatments * No radiation treatments are documented for this patient in [facility]. Treatments may have been administered in another system. Lifetime Dose Tracking * Chemical Lifetime Dose Automatic Entry Manual Entr y Air Kerma 443 mGy 0 mGy 443 mGy
--- OUTSIDE RECORDS SUMMARY | 2025-01-25 10:54 | XMS_ITS | Clinical Summary ---
Author Organization [facility] Address [address] [place] [id number] Care Team Providers Care Coin Purse Assembler Name Role Phone Billy Jalloh MD Primary Care Provider [phone] Social History Tobacco Use Types Packs/Day Years Used Date Smoking Tobacco: Never Assessed Sex and Gender Information Value Date Recorded Sex Assigned at Not on file Legal Sex Male 12:13 PM CDT Gender Identity Not on file Sexual Orientation Not on file Plan of Treatment Health Maintenance Due Date Last Done Comments Colorectal Cancer Screening Colonoscopy (10 Years) 1950 Hepatitis C 1967 Zoster Vaccines (2 of 3) 10/25/2012 08/30/2012 Annual Medicare Wellness Visit 2014 COVID-19 Vaccine ( season) 2024 RSV Immunization or 60+ Years (1 - 1-dose 75+ series) 2024 Influenza Adult (#1) 2024 08/09/2018, 01/05/20 17 DTaP, Tdap and Td Vaccines (4 - Td or Tdap) 01/29/2028 01/28/2018, 11/05/2017, 09/04/2017 Meningococcal Vaccine Aged Out 09/04/2017 No anupama griselda eligible based on patient's age to complete this topic Pneumococcal Vaccine: 65+ Years Completed 03/30/2018, 01/28/2018, 11/05/2017, Additional history exists Meningococcal B Vaccine Aged Out No l onger eligible based on patient's age to complete this topic RSV Immunizations Under 20 Months Aged Out No longer eligible based on patient's age to complete this topic Insurance MEDICARE [facility] Care Teams Coin Purse Assembler Relationship Specialty Start Date End Date Billy Jalloh MD [address] [address] PCP - General INTERNAL MEDICINE 03/08/19
--- OUTSIDE RECORDS SUMMARY | 2025-01-25 10:54 | XMS_ITS | Encounter Summary ---
Author Organization [facility] Address [address] [place] [address] Care Team Providers Care Circuit Design Engineer Name Role Phone Billy Jalloh MD Primary Care Provider Jamie Arboleda MD Unavailable Ruben Park MD Unavailable [phone] Yoni Young Unavailable Vadim Xiong MD Unavailable [phone] Encounter Details Date Type Department Care Team (Late st Contact Info) Description 04/20/2023 Telephone [facility] - Centralized Scheduling [address] [place] [address] Jamie Arboleda MD [address] OF PULMONARY/[place] [address] Social History Tobacco Use Types Packs/Day Years [...] encounter Miscellaneous Notes * Telephone Encounter - Jeffrey Bone - 04/20/2023 11:58 AM CDT Called Leia () no answer. I did let her know that we already sent that order to [facility],if I read this call right she wanted to stop services with [facility]. Advised to call back if information is incorrect. Jeffrey Bone [facility] Agronomist III Pulmonary Critical Care & Sleep Disorders documented in this encounter Plan of Treatment Upcoming Encounters Date Type Department Care Team (Late st Contact Info) Description 03/23/2025 11:00 AM CDT Office Visit [facility] - Cardiology [id number] [place] [address] Clifford Nolan MD [address] [place] [address] 03/27/2025 11:00 AM CDT Office Visit [facility] - Dermatology [address] [place] [address], [place] [id number] Rosie Quigley MD [address] [place] [address] [address] [place] [address] 03/30/2025 11:00 AM CDT Office Visit [facility] - Pulmonology [address] [facility], [place] [address] Jamie Arboleda MD [address] [facility] [address] DIV OF PULMONARY/[place] [address] 08/08/2025 10:45 AM CDT Office Visit [facility] - General Surgery [address] [facility], [place] [id number] Irene Rojas MD [facility] [facility] [address] [place] [address] documented as of this encounter Visit Diagnoses Not on filedocumented in this encounter Care Teams Circuit Design Engineer Relationship Specialty Start Date End Date Billy Jalloh MD [address] [place] [address] [address] [place] [address] PCP - General 07/08/16 Jamie Arboleda MD [address] [place] [address] Pulmonary Disease 07/08/18 Ruben Park MD [address] [place] [address] Hematology and Oncology 07/08/18 Yoni Young CD [address] [place] [address] Cardiology 07/08/18 Vadim Xiong MD [address] [facility] [place] [address] Gastroenterology 12/02/18 documented as of this encounter
--- NOTE | 2025-01-25 11:50 | ED_ITS ---
HPI - Fall General Chief Complaint: Fall <Vijaya Hamlin PA-C - Last Filed: 01/25/25 14:50> Stated Complaint: fall, L leg/hip/knee pain <Vijaya Hamlin PA-C - Last Filed: 01/25/25 14:50> Time Seen by Provider: 01/25/25 11:50 <Vijaya Hamlin PA-C - Last Filed: 01/25/25 14:50> Focused HPI: This is a 74 year old male that presents to the ER after a fall last night around 11pm. Reports left hip and knee pain. He has not been able to ambulate. He did not hit his head or lose consciousness. GENERAL: Well-appearing, well-nourished, and in no acute distress. HEAD: Normocephalic, atraumatic. CHEST: Clear to auscultation. ?No respiratory distress. HEART: Regular rate and rhythm.? NEURO: ?Alert and oriented x3. Patient screened in triage and initial orders placed.? ?Additional care and disposition to be based upon?diagnostic testing and treatment. <Vijaya Hamlin PA-C - Last Filed: 01/25/25 14:50> History of Present Illness HPI Narrative: Patient 74-year-old gentleman presents emergency department with chief complaint of left hip pain. Patient reports that he got up out of bed and lost his balance and fell to the ground. The patient reports no head injury denies loss of consciousness the patient reports that he has pain in the left hip area worse with movement <Joshua Hernandez MD - Last Filed: 01/25/25 13:56> Related Data Home Medications: Home Medications ?Medication ?Instructions ?Recorded ?Confirmed ?Last Taken ?Type acyclovir 800 mg tablet 12/21/19 Unknown History albuterol sulfate 90 mcg/actuation inhalation 12/21/19 Unknown History aerosol inhaler (Ventolin HFA) budesonide-formoterol HFA 160 inhalation 12/21/19 Unknown History mcg-4.5 mcg/actuation aerosol inhaler (Symbicort) flecainide 150 mg tablet 150 mg PO Q12H 12/21/19 01/25/25 Unknown History metoprolol succinate 25 mg 25 mg PO DAILY 12/21/19 01/25/25 Unknown History tablet,extended release 24 hr pregabalin 150 mg capsule 12/21/19 Unknown History apixaban 5 mg tablet (Eliquis) 5 mg PO Q12H 01/25/25 01/25/25 Unknown History aspirin 81 mg chewable tablet 81 mg PO DAILY 01/25/25 01/25/25 Unknown History atorvastatin 20 mg tablet 80 mg PO QPM 01/25/25 01/25/25 Unknown History hydrochlorothiazide 25 mg tablet 25 mg PO DAILY 01/25/25 01/25/25 Unknown History valacyclovir 500 mg tablet 500 mg PO DAILY 01/25/25 01/25/25 Unknown History <Vijaya Hamlin PA-C - Last Filed: 01/25/25 14:50> Allergies/Adverse Reactions: Allergies Allergy/AdvReac Type Severity Reaction Status Date / Time gabapentin Allergy Intermediate Rash Verified 01/25/25 09:52 <Vijaya Hamlin PA-C - Last Filed: 01/25/25 14:50> Review of Systems 2 Review of Systems: A 10 system review of systems was completed on the patient and is negative except for what is stated in the HPI. Nursing and ancillary documentation was reviewed. <Joshua Hernandez MD - Last Filed: 01/25/25 13:56> [facility] Past Medical History Medical History: Medical History (Updated 01/25/25 @ 14:22 by Winsome Sexton APRN) Orthostatic hypotension Waldenstrom macroglobulinemia S/P bone marrow transplant 2016 COPD (chronic obstructive pulmonary disease) Neuropathy Atrial fibrillation <Vijaya Hamlin PA-C - Last Filed: 01/25/25 14:50> Social History Social History: Social History Gender identity (if verbalized by the patient): Male <Vijaya Hamlin PA-C - Last Filed: 01/25/25 14:50> Exam 2 Narrative: GENERAL: Well-appearing, well-nourished, and in no acute distress. HEAD: Normocephalic, atraumatic. EYES: PERRLA and EOMI. ENT: Nares clear, no rhinorrhea or epistaxis. Mucous membranes moist. NECK: Supple. CHEST: Clear to auscultation. No respiratory distress. HEART: Regular rate and rhythm. No murmur heard. Normal peripheral pulses. ABDOMEN: Soft, nontender, nondistended, normal active bowel sounds. 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 No edema. SKIN: Warm, dry, no rash. NEURO: No focal deficits. Alert and oriented x3. PSYCH: Normal mood and affect. <Joshua Hernandez MD - Last Filed: 01/25/25 13:56> Course Vital Signs Vital signs: Vital Signs Temperature 97.8 F 01/25/25 09:52 Pulse Rate 72 01/25/25 09:52 Respiratory Rate 15 01/25/25 09:52 Blood Pressure 94/58 L 01/25/25 09:52 Pulse Oximetry 100 01/25/25 09:52 Temperature 97.8 F 01/25/25 09:52 Pulse Rate 66 01/25/25 14:44 Respiratory Rate 17 01/25/25 14:44 Blood Pressure 90/65 L 01/25/25 14:44 Pulse Oximetry 92 01/25/25 14:44 <Vijaya Hamlin PA-C - Last Filed: 01/25/25 14:50> Vital Signs Temperature 97.8 F 01/25/25 09:52 Pulse Rate 72 01/25/25 09:52 Respiratory Rate 15 01/25/25 09:52 Blood Pressure 94/58 L 01/25/25 09:52 Pulse Oximetry 100 01/25/25 09:52 Temperature 97.8 F 01/25/25 09:52 Pulse Rate 66 01/25/25 14:44 Respiratory Rate 17 01/25/25 14:44 Blood Pressure 90/65 L 01/25/25 14:44 Pulse Oximetry 92 01/25/25 14:44 <Joshua Hernandez MD - Last Filed: 01/25/25 13:56> MDM - Fall MDM Narrative Medical decision making narrative: The patient is currently GCS 15 alert oriented showing no focal neurological deficits. Patient has tenderness to palpation left hip area exam was consistent with a subcapsular actually of the left femur <Joshua Hernandez MD - Last Filed: 01/25/25 13:56> Lab Data Result diagrams: 01/25/25 14:01 01/25/25 14:01 <Vijaya Hamlin PA-C - Last Filed: 01/25/25 14:50> Imaging Data Radiologist's impression: ITS Impressions Chest X-Ray 01/25/25 13:21 IMPRESSION: 1. Mild atelectasis at right lung base. Hip/Pelvis X-Ray 01/25/25 13:22 IMPRESSION: 1. Subcapital fracture of left femoral neck. 2. Mild osteoarthritis of the hips. Knee X-Ray 01/25/25 13:24 IMPRESSION: 1. Mild left knee osteoarthritis. <Vijaya Hamlin PA-C - Last Filed: 01/25/25 14:50> Critical Care Time Critical Care Time Critical Care Time: No <Vijaya Hamlin PA-C - Last Filed: 01/25/25 14:50> Discharge Plan Discharge Clinical Impression: Closed fracture of left hip Qualifiers: Encounter type: initial encounter Qualified Code(s): S72.002A - Fracture of unspecified part of neck of left femur, initial encounter for closed fracture <Vijaya Hamlin PA-C - Last Filed: 01/25/25 14:50> Patient Disposition: Still a Patient <Vijaya Hamlin PA-C - Last Filed: 01/25/25 14:50> Condition: Stable <Vijaya Hamlin PA-C - Last Filed: 01/25/25 14:50> Time of Disposition: 13:35 <Vijaya Hamlin PA-C - Last Filed: 01/25/25 14:50> 13:35 <Joshua Hernandez MD - Last Filed: 01/25/25 13:56>
[2025-01-25] MEDS: HYDROcodone/acetaminophen (*CRX) 5-325 MG TABLET 1 TAB PO ×2 (13:07→21:22)
--- NOTE | 2025-01-25 13:16 | ECG_ITS ---
Test Date: 2025-01-25 13:37:52 Measurements Intervals Reagan Rate: 68 P: 96 WI: 236 QRS: -60 QRSD: 136 T: 74 QT: 415 QTc: 443 Interpretive Statements SINUS RHYTHM WITH FIRST DEGREE AV BLOCK RIGHT BUNDLE BRANCH BLOCK LEFT ANTERIOR FASCICULAR BLOCK CANNOT R/O SEPTAL INFARCT, AGE INDETERMINATE BASELINE ARTIFACT- I, II, III ,AVR, AVL, AVF ABNORMAL ECG No previous ECG available for comparison Electronically Signed On 01-25-2025 13:49:50 DIVISION DIRECTOR by Cj Vital D.O.
[2025-01-25 14:12] LABS: Basophils Percent Auto 0.3 % (0.2-1.2); Eosinophils Percent Auto 0.4 % (0-4.4); Hematocrit 35.8 % (42.0-52.0); Hemoglobin 12.2 g/dL (14.0-18.0); Immature Granulocyte Absolute 0.03 K/mm3 (0.00-0.031); Immature Granulocyte Percent A 0.4 % (0-0.5); Lymphocytes Absolute Auto 0.63 K/mm3 (0.9-3.2); Lymphocytes Percent Auto 8.8 % (18.3-44.2); Mean Corpuscular HGB Conc 34.1 g/dl (32-36); Mean Corpuscular Hemoglobin 33.2 pg (26-34); Mean Corpuscular Volume 97.3 fl (80-100); Mean Platelet Volume 8.8 fl (7.4-10.4); Monocytes Absolute Auto 0.9 K/mm3 (0.1-0.6); Monocytes Percent Auto 11.9 % (2.6-8.5); Neutrophils Absolute Auto 5.6 K/mm3 (1.3-6.7); Neutrophils Percent Auto 78.2 % (45.5-73.1); Platelet Count Result 180 k/mm3 (150-375); Red Blood Count 3.68 M/mm3 (4.6-6.20); White Blood Count 7.1 K/mm3 (4.5-10.0)
--- NOTE | 2025-01-25 14:12 | P.HP_ITS ---
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 The patient presents here from home via EMS for further evaluation of left hip pain s/p ground level fall last night. The patient reports that he got up out of a chair around 11:00 p.m. last night when he lost his balance. Believes his leg may have been asleep, combined with neuropathy and a drop foot on the right, causing him to lost his balance and he fell to the ground onto his left side without head strike or loss of consciousness. He reports he had immediate pain to his left hip but he was able to ambulate to his bed. Patient then reports little sleep due to the pain. Hip pain is described as achy/dull, nonradiating, and worsens with movement. He denies numbness or tingling to the left lower extremity that is different from his baseline. He is on aspirin and Eliquis daily. Per , his renal function has been slightly more elevated than usual in the last couple months. Initial VS at presentation: 97.8? F, HR 72, RR 15, 94/58, and 100% on RA. ED workup showed: No leukocytosis, hemoglobin 12.2 (previously 12.0 on 01/26/2024). CXR showed mild atelectasis at the right lung base. Hip/pelvic XR showed a subcapital fracture of the left femoral neck and mild osteoarthritis of the hips. Knee XR, left, showed mild left knee osteoarthritis. EKG showed si nus rhythm with first-degree AV block, right bundle branch block, left anterior fascicular block, cannot rule out septal infarct age indeterminate. Review of Systems Review of Systems: All systems reviewed & are unremarkable except as noted in HPI and below [facility] Past Medical History Medical History Orthostatic hypotension Waldenstrom macroglobulinemia S/P bone marrow transplant 2016 COPD (chronic obstructive pulmonary disease) Neuropathy Atrial fibrillation Social History Social History Gender identity (if verbalized by the patient): Male Meds Home Medications and Allergies Home Medications ?Medication ?Instructions ?Recorded ?Confirmed ?Type acyclovir 800 mg tablet 12/21/19 History albuterol sulfate 90 mcg/actuation inhalation 12/21/19 History aerosol inhaler (Ventolin HFA) budesonide-formoterol HFA 160 inhalation 12/21/19 History mcg-4.5 mcg/actuation aerosol inhaler (Symbicort) flecainide 150 mg tablet 150 mg PO Q12H 12/21/19 01/25/25 History metoprolol succinate 25 mg 25 mg PO DAILY 12/21/19 01/25/25 History tablet,extended release 24 hr pregabalin 150 mg capsule 12/21/19 History oseltamivir 75 mg capsule (Tamiflu) 75 mg PO Q12H 5 days #10 caps 01/26/24 Rx apixaban 5 mg tablet (Eliquis) 5 mg PO Q12H 01/25/25 01/25/25 History aspirin 81 mg chewable tablet 81 mg PO DAILY 01/25/25 01/25/25 History atorvastatin 20 mg tablet 80 mg PO QPM 01/25/25 01/25/25 History hydrochlorothiazide 25 mg tablet 25 mg PO DAILY 01/25/25 01/25/25 History valacyclovir 500 mg tablet 500 mg PO DAILY 01/25/25 01/25/25 History Allergies Allergy/AdvReac Type Severity Reaction Status Date / Time gabapentin Allergy Intermediate Rash Verified 01/25/25 09:52 Vital Signs Vital Signs - 24 hr 01/25/25 09:52 Temperature 97.8 F Pulse Rate 72 Respiratory Rate 15 Blood Pressure 94/58 L Pulse Oximetry 100 Exam Const: General: comfortable and no acute distress Other: , male, elderly, fatigued HENMT: Face/Nose/Sinus: Normal nares present Mouth: Yes moist mucous membranes Eyes: General: appearance normal, both eyes and all related structures Sclera: sclerae normal Pupils: Equal, round and reactive pupils present EOM: EOMs intact bilaterally Resp: Effort & Inspection: normal respiratory effort Auscultation: clear to auscultation bilaterally Cardio: Rate: regular rate Rhythm: regular rhythm Other: S1-S2 present without murmur, rub, ectopy GI: Other: Abdomen soft, nondistended, nontender. Normoactive bowel sounds in all quadrants. Back/Spine/Pelvis: Pelvis: Other pelvic findings (Minimal tenderness) Skin: General skin exam: normal color and no rashes or lesions noted Wo unds: no wounds Neuro: Speech: normal speech Motor exam (neuro): 5/5 motor strength present throughout Sensory Exam: normal sensation Other: A&O x4, mildly somnolent. Extrem: General: normal to inspection Psych: Mental Status: mental status grossly normal Affect: normal affect Other: Good insight and judgment, pleasant Assessment and Plan Assessment and plan (1) Closed fracture of left hip: Qualifiers: Encounter type: initial encounter Qualified Code(s): S72.002A - Fracture of unspecified part of neck of left femur, initial encounter for closed fracture Code(s): S72.002A - Fracture of unspecified part of neck of left femur, initial encounter for closed fracture Status: Acute Assessment and Plan: - hip/pelvic XR: 1. Subcapital fracture of left femoral neck. 2. Mild osteoarthritis of the hips. - knee XR (L) and CXR negative for trauma or acute findings - orthopedics consulted, awaiting formal recs tentative surgery date 01/27, patient on Eliquis (holding, repeat coags tomorrow) orthopedist consulted Cardiology and Nephrology due to history of AFib and possible recent onset CKD - NPO at midnight - analgesics and antiemetics p.r.n. - will need PT/OT postop - check type and screen, coags, EKG, BNP - patient has history of chronic orthostatic hypotension, per historically responds well to fluids. LR at 150 mL/hour x1 L. Plan Creatinine 1.51, previously 1.4 on 01/26/2024. Patient reports no history of CKD, however renal function has been modestly elevated over the last few months per . Unclear recent baseline, currently unable to access his chart from other facilities. Start IV fluids: LR at 150 mL/hour x1 L. monitor renal function. Diet: Heart healthy, NPO at midnight on 01/26 GI Prophylaxis: Not currently indicated DVT Prophylaxis: SCDs Lines: Peripheral Code Status: Full code Quality VTE Prophylaxis VTE prophylaxis: mechanical ordered Hospitalist MIPS Advance Care Plan I have confirmed that the patient's Advanced Care Plan is present, code status is documented, or surrogate decision maker is listed in patient medical record.: Yes Medication Reconciliation I have utilized all available resources to obtain, update and review the patients current medications (includes all prescriptions, OTC, herbals, cannabis , and nutritional supplements).: Yes
--- NOTE | 2025-01-25 14:15 | PC.NURSE ---
Patient denies need for more pain medication at this time.
[2025-01-25 14:19] LABS: INR 1.2; Prothrombin Time 15.3 Seconds (11.1-14.7)
[2025-01-25 14:20] LABS: Alanine Aminotransferase 30 U/L (6-50); Alkaline Phosphatase 105 U/L (38-126); Anion Gap 11 mmol/L (4-12); Aspartate Amino Transferase 33 U/L (17-59); Blood Urea Nitrogen 28 mg/dL (9-20); Calcium 9.3 mg/dL (8.4-10.2); Carbon Dioxide 26 mmol/L (22-30); Chloride 100 mmol/L (98-107); Estimated Glomerular Filt Rate 45; Glucose 113 mg/dL (65-110); Partial Thromboplastin Time 28.2 Seconds (22.3-36.8); Potassium 4.7 mmol/L (3.4-5.0); Sodium 137 mmol/L (137-145)
[2025-01-25 14:44] VITALS: BP 90/65; PULSE 66; RESP 17; O2SAT 92
[2025-01-25] MEDS: MORPHINE SULFATE (*CRX) 4 MG/ML INJ IV PUSH (15:16)
[2025-01-25] MEDS: LACTATED RINGERS 1,000 ML 150 ML IV CONT (15:17)
--- OUTSIDE RECORDS SUMMARY | 2025-01-25 15:26 | XMS_ITS | Referral Summary ---
Author Organization [facility] Address [address] [place] [address] Care Team Providers Care Lawyer Name Role Phone Billy Jalloh MD Primary Care Provider Jamie Arboleda MD Unavailable Ruben Park MD Unavailable [phone] Yoni Young CD Unavailable [phone] Vadim Xiong MD Unavailable [phone] Source Comments [facility],non-owned Affiliates and Associated Physician Practices is amultiple site organization consisting of ambulatory clinics and hospital sitesin [place], [place], [place] and [place]. This disclosure is being madepursuant to the Care Everywhere program and may not contain all information available regarding this patient. Last updated 18.[facility] Encounters Date Type Department Care Team Description 01/17/2025 Orders Only [facility] - Pulmonology [address] [place] [phone] Jamie Arboleda MD 01/12/2025 Refill [facility] Pulmonology [address] [place] [address] [phone] Jamie Arboleda MD Medication Request 01/04/2025 Travel 01/04/2025 4:14 PM VEHICLE BODY SANDER - 01/04/2025 5:35 PM VEHICLE BODY SANDER Surgery [facility] [address] [place] [address] Salazar Ward MD Left Heart Cath 01/04/2025 10:50 AM VEHICLE BODY SANDER - 01/04/2025 9:06 PM VEHICLE BODY SANDER Hospital Encounter [facility] [address] [place] [address] Salazar Ward MD Cardiac Catheterization Discharge Disposition: Home or Self Care 12/27/2024 Travel 12/27/2024 10:30 AM VEHICLE BODY SANDER Office Visit [facility] - Cardiology [address] [facility], [facility] [address] [place] [address] Courtney Vallejo PA Persistent atrial fibrillation (HCC) (Primary Dx); LASSITER (dyspnea on exertion); Coronary artery disease involving [place] coronary artery of [place] heart with angina pectoris (HCC) 12/23/2024 Travel 11/09/2024 Orders Only [facility] - Pulmonology [facility] [facility], [place] [address] Jamie Arboleda MD 11/07/2024 Telephone [facility] - Pulmonology [facility] [place] [address] Jamie Arboleda MD 11/07/2024 Telephone [facility] - Centralized Scheduling [address] [place] [address] Jamie Arboleda MD Reschedule Appointment from Last [...] Diagnosed Date Coronary artery disease invo lving [place] coronary artery of [place] heart with angina pectoris 12/27/2024 Actinic keratosis [...] persistent 03/09/2018 Persistent atrial fibrillation 02/28/2018 Other group home (current) drug therapy 6 Waldenstrom's macroglobulinemia 09/15/2016 [...] Comments Blood Pressure 109/72 01/04/2025 8:57 PM VEHICLE BODY SANDER Pulse 56 01/04/2025 8:57 PM VEHICLE BODY SANDER Temperature 36.7 C (98.1 F) 01/04/2025 5:06 PM VEHICLE BODY SANDER Respiratory Rate 13 01/04/2025 8:57 PM VEHICLE BODY SANDER Oxygen Saturation 94% 01/04/2025 8:57 PM VEHICLE BODY SANDER Inhaled Oxygen Concentration - - Weight 99.8 kg (220 lb) 01/04/2025 11:14 AM VEHICLE BODY SANDER Height 193 cm (6' 4 ) 01/04/2025 11:14 AM VEHICLE BODY SANDER Body Mass Index 26.78 01/04/2025 11:14 AM VEHICLE BODY SANDER Functional Status Functional Status Response Date of [...] Description 03/23/2025 11:00 AM CDT Office Visit [facility] - Cardiology [address] [facility] [id number] [place] [address] Clifford Nolan MD [address] [facility], [facility] [address] [place] [address] 03/27/2025 11:00 AM CDT Office Visit [facility] - Dermatology [address] [place] [address], [place] [phone] Rosie Quigley MD [address] [place] [address] [address] [place] [address] 03/30/2025 11:00 AM CDT Office Visit [facility] - Pulmonology [address] [place] [address], [place] [phone] Jamie Arboleda MD [address] [place] [address] [address] DIV OF PULMONARY/[place] [address] 08/08/2025 10:45 AM CDT Office Visit [facility] - General Surgery [address] [place] [address], [place] [phone] Irene Rojas MD [address] [place] [address] [address] [place] [phone] Medical Devices Explanted Type Area Failure Analysis Technician Device Identifier Shelf Expiration Date Model / Serial / Lot [employer] Ureteral Stents Explanted:Qty: 2 on 06/10/2019 by Heber Vizcarra MD at [facility] Bilateral: Ureter [employer] [place] 05/02/2022 [id number] / / [id number] Procedures Procedure Name Priority Date/Time Associated Diagnosis Comments ACT LR - POCT ([facility]) Routine 01/04/2025 5:49 PM VEHICLE BODY SANDER ACT LR - POCT ([facility]) Routine 01/04/2025 5:37 PM VEHICLE BODY SANDER CCL PERCUTANEOUS CORONARY INTERVENTION Routine 01/04/2025 4:59 PM VEHICLE BODY SANDER Coronary artery disease involving [place] coronary artery of [place] heart with angina pectoris (HCC) CCL LEFT HEART CATH Routine 01/04/2025 4 :59 PM VEHICLE BODY SANDER Coronary artery disease involving [place] coronary artery of [place] heart with angina pectoris (HCC) BASIC METABOLIC PANEL (CALCIUM TOTAL) STAT 01/04/2025 11:36 AM VEHICLE BODY SANDER Coronary artery disease involving [place] coronary artery of [place] heart with angina pectoris (HCC) CBC W/O DIFFERENTIAL 12/30/2024 11:58 AM VEHICLE BODY SANDER BASIC METABOLIC PANEL (CALCIUM TOTAL) 12/30/2024 11:58 AM VEHICLE BODY SANDER EKG 12-LEAD Routine 12/27/2024 10:07 AM VEHICLE BODY SANDER Persistent atrial fibrillation (HCC) ENDOSCOPY, COLON, SCREENING Routine 07/20/2023 1:14 PM CDT INFECTIOUS DISEASE TESTING NTL Routine 08/22/2016 8:57 AM CDT from Last 3 Months or Most Recently Relevant to Health Maintenance Results * ACT LR - POCT ([facility]) (01/04/2025 5:49 PM VEHICLE BODY SANDER) Only the most recent of2 resultswithin the time period is included. ACT LR 282 See result comments sec 01/09/2025 7:16 AM [facility] Blood BLOOD SPECIMEN / Unknown 01/04/2025 5:49 PM VEHICLE BODY SANDER 01/09/2025 7:16 AM VEHICLE BODY SANDER Narrative [facility] - 01/09/2025 7:16 AM VEHICLE BODY SANDER ACT-LR Therapeutics ranges are: Cardiac geochemical laboratory technician = 200-300 seconds Sheath pull = ACT [...] Ward MD LAB - COAGULATION OR DERABLES [place] [id number] [place] [address], [facility] [phone] * CCL LEFT HEART CATH, CCL PERCUTANEOUS CORONARY INTERVENTION (01/04/2025 4:59 PM VEHICLE BODY SANDER) Anatomical Region Laterality Modality X-Ray Angiograph y Narrative 01/06/2025 7:41 AM VEHICLE BODY SANDER LM 30-40% (MLA 9.5 cm2). Prox RCA lesion is 50% stenosed. Negative by iFR (0.99) LVEDP: 6 mmHg. Lcx and LAD without obstructive disease but very tortuous vessels. Reason for Procedure 74 year old male with past medical history persistent a fib (on Eliquis, flecainide), PAD, HTN, CAD presents for [facility] with Dr. Ward. Patient has known [...] METABOLIC PANEL (CALCIUM TOTAL) (01/04/2025 11:36 AM VEHICLE BODY SANDER) Only the most recent of2 resultswithin the time period is included. BUN 25 7 - 26 mg/dL 01/04/2025 12:48 PM [facility] Creatinine 1.43(H) 0.71 - 1.16 mg/dL 01/04/2025 12:48 PM [facility] Sodium 140 136 - 145 mmol/L 01/04/2025 12:48 PM [facility] Potassium 4.6(H) 3.5 - 4.5 mmol/L 01/04/2025 12:48 PM [facility] Chloride 104 98 - 107 mmol/L 01/04/2025 12:48 PM [facility] CO2 27 22 - 29 mmol/L 01/04/2025 12:48 PM [facility] Glucose 88 70 - 99 mg/dL 01/04/2025 12:48 PM [facility] Calcium 9.4 8.4 - 10.2 mg/dL 01/04/2025 12:48 PM [facility] Anion Gap 9 6 - 16 01/04/2025 12:48 PM [facility] BUN/Creatinine Ratio 17 7 - 23 01/04/2025 12:48 PM [facility] Osmolality Calculated 294 275 - 295 mOsm/kg 01/04/2025 12:48 PM [facility] eGFR by CKD-EPI 51(L) >=90 mL/min/1.7 3 m2 01/04/2025 12:48 PM [facility] Blood BLOOD SPECIMEN / Unknown Venipuncture / Unknown 01/04/2025 11:36 AM VEHICLE BODY SANDER 01/04/2025 12:35 PM VEHICLE BODY SANDER Courtney [facility] - CHEMISTRY KIT [facility] Organization Address City/State/ZIP Co de Phone Number [facility] [address] [address], [place] [phone] * (ABNORMAL) CBC W/O DIFFERENTIAL (12/30/2024 11:58 AM VEHICLE BODY SANDER) Pathologist [facility] White Blood Cell Count 4.8 3.8 - [...] Comment: REPORT COMMENT: FASTING:NO Test Performed at: [facility] [address] GEORGE SAAVEDRA MD 12/30/2024 11:5 8 AM VEHICLE BODY SANDER 12/30/2024 12:00 PM VEHICLE BODY SANDER Courtney [facility] - HEMATOLOGY ORD ERABLES Performing Organization Address [facility] Co de Phone Number [address] [address] * EKG 12-LEAD (12/27/2024 10:07 AM VEHICLE BODY SANDER) Courtney KENNY ECG ORDERABLES Performing Organization Address [facility] Co de Phone Number [facility] * ENDOSCOPY, COLON, SCREENING (07/20/2023 1:14 PM CDT) Pathologist [facility] Report Endoscopy POC Endoscopy Department Report _ [...] entire procedure. Procedure Code(s): --- Professional --- 08602, Colonoscopy, flexible; with biopsy, single or multiple Diagnosis Code(s): --- Professional --- Z85.048, Personal history of other malignant neoplasm of rectum, rectosigmoid junction, and anus D12.6, Benign neoplasm of colon, unspecified CPT copyright 2021 [employer]. All rights reserved. The codes documented in this report are preliminary and upon head field hockey coach review may be revised to meet current compliance requirements. Irene Rojas, 07/20/2023 1:58:28 PM Note Initiated On: 07/20/2023 1:14 PM Number of Addenda: [id number] [place] [address] 07/20/2023 1:14 PM CDT Irene Rojas MD GI PROCEDURE ORDER [facility] * (ABNORMAL) INFECTIOUS DISEASE TESTING NT (08/22/2016 8:57 AM CDT) Hepatitis B Surface Antigen Negative Negative [facility] Hepatitis C Virus Antibody Negative Negative [facility] HIV-1 / HIV-2 Antibody Western Blot Negative Negative [facility] Hepatitis B Core Virus Antibody Negative Negative [facility] HTLV-I/II Antibody Negative Negative [facility] NTL T. pallidum Antibody Negative Negative [facility] Cytomegalovirus Antibody Positive(A) Negative [facility] HIV-1/HCV/HBV (TAMMI) Negative Negative [facility] West Nile Virus Negative Negative [facility] [place] Antibody Negative Negative [facility] Blood specimen (specimen) BLOOD SPECIMEN / Unknown 08/22/2016 8:57 AM CDT 08/22/2016 9:31 AM CDT Narrative [facility] - 08/25/2016 10:46 AM CDT [facility]-NTL ID [id number] Performed By: [facility] [address] [place] [address] Historical Provider LAB - CHEMISTRY O RDERABLES Performing Organization Address City/[facility]/ZIP Co de Phone Number [facility] [address] [place], [place] [phone] [place] [address] from Last 3 Months or Most Recently Relevant to Health Maintenance Advance Directives Documents on File Type Date Recorded Patient Technical Applications Specialist Expl anation Adv Directive/Living Will/POA 06/04/2018 7:40 [...] 1:34 PM 06/03/2018 5:21 PM Care Teams Lawyer Relationship Specialty Start Date End Date Billy Jalloh MD [address] [place] [address] [address] [place] [address] PCP - General 07/08/16 Jamie Arboleda MD [address] [place] [address] Pulmonary Disease 07/08/18 Ruben Park MD [address] [place] [address] Hematology and Oncology 07/08/18 Yoni Young CD [address] [facility] [address] [place] [address] Cardiology 07/08/18 Vadim Xiong MD [address] [place] [address] Gastroenterology 12/02/18
--- OUTSIDE RECORDS SUMMARY | 2025-01-25 15:26 | XMS_ITS | Clinical Summary ---
Author Organization [facility] Address [address] [place] [address] Care Team Providers Care Outreach Librarian Name Role Phone Billy Jalloh MD Primary Care Provider Jamie Arboleda MD Unavailable Ruben Park MD Unavailable Yoni Young CD Unavailable [phone] Vadim Xiong MD Unavailable [phone] Source Comments [facility],non-owned Affiliates and Associated Physician Practices is amultiple site organization consisting of ambulatory clinics and hospital sitesin [place], [place], [place] and [place]. This disclosure is being madepursuant to the Care Everywhere program and may not contain all information available regarding this patient. Last updated 18.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 12/27/2024 Actinic keratosis [...] persistent 03/09/2018 Persistent atrial fibrillation 02/28/2018 Other termite helper (current) drug therapy 6 Waldenstrom's macroglobulinemia 09/15/2016 Centrilobular emphysema 08/28/2016 Overview (08/26/2021): Documented in medical record Rash and other nonspecific skin eruption 016 Paroxysmal atrial fibrillation 11/16/2015 Other hereditary and idiopathic neuropathies 04/2015 Polyneuropathy 04/04/2015 Primary malignant neoplasm 01/05/2015 Encounters Date Type Department Care Team Description 01/17/2025 Orders Only [facility] - Pulmonology [address] [place] [address] Jamie Arboleda MD 01/12/2025 Refill [facility] - Pulmonology [address] [place] [address] Jamie Arboleda MD Medication Request 01/04/2025 4:14 PM BENCH GRINDER - 01/04/2025 5:35 PM BENCH GRINDER Surgery [facility] - Cardiac Pediatric Allergist [address] [place] [address] Salazar Ward MD Left Heart Cath 01/04/2025 10:50 AM BENCH GRINDER - 01/04/2025 9:06 PM BENCH GRINDER Hospital Encounter [facility] [address] [place] [address] Salazar Ward MD Cardiac Catheterization Discharge Disposition: Home or Self Care 01/04/2025 Travel 12/27/2024 10:30 AM BENCH GRINDER Office Visit [facility] - Cardiology [address] [facility], [facility] [address] [place] [address] Courtney Vallejo PA Persistent atrial fibrillation (HCC) (Primary Dx); LASSITER (dyspnea on exertion); Coronary artery disease involving caddo coronary artery of caddo heart with angina pectoris (HCC) 12/27/2024 Travel 12/23/2024 Travel 11/09/2024 Orders Only [facility] - Pulmonology [address], [place] [address] Jamie Arboleda MD 11/07/2024 Telephone [facility] - Pulmonology [address], [place] [address] Jamie Arboleda MD 11/07/2024 Telephone [facility] - Centralized Scheduling [address] [place] [address] Jamie Arboleda MD Reschedule Appointment from Last [...] Comments Blood Pressure 109/72 01/04/2025 8:57 PM BENCH GRINDER Pulse 56 01/04/2025 8:57 PM BENCH GRINDER Temperature 36.7 C (98.1 F) 01/04/2025 5:06 PM BENCH GRINDER Respiratory Rate 13 01/04/2025 8:57 PM BENCH GRINDER Oxygen Saturation 94% 01/04/2025 8:57 PM BENCH GRINDER Inhaled Oxygen Concentration - - Weight 99.8 kg (220 lb) 01/04/2025 11:14 AM BENCH GRINDER Height 193 cm (6' 4 ) 01/04/2025 11:14 AM BENCH GRINDER Body Mass Index 26.78 01/04/2025 11:14 AM BENCH GRINDER Plan of Treatment Upcoming Encounters Date Type Department Care Team (Late st Contact Info) Description 03/23/2025 11:00 AM CDT [facility] [address] [facility], [facility] [address] [place] [address] Clifford Nolan MD [address] [facility], [facility] [address] [place] [address] 03/27/2025 11:00 AM CDT [facility] - Dermatology [address] [place] [address], [place] [address] Rosie Quigley MD [address] [place] [address] [address] [place] [address] 03/30/2025 11:00 AM CDT Office Visit [facility] - Pulmonology [address] [place] [address], [place] [address] Jamie Arboleda MD [address] [place] [address] 2[address] DIV OF PULMONARY/[place] [address] 08/08/2025 10:45 AM CDT Office Visit [facility] - General Surgery [address] [place] [address], [place] [phone] Irene Rojas MD [address] [place] [address] [address] [place] [address] Health Maintenance Due Date Last Done Comments [...] this topic Medical Devices Explanted Type Area Brand Engineer Device Identifier Shelf Expiration Date Model / Serial / Lot [employer] Ureteral Stents Explanted:Qty: 2 on 06/10/2019 by Heber Vizcarra MD at [facility] Bilateral: Ureter [employer] Haile 05/02/2022 [id number] / / [id number] Procedures Procedure Name Priority Date/Time Associated Diagnosis Comments ACT LR - POCT ([facility]) Routine 01/04/2025 5:49 PM BENCH GRINDER ACT LR - POCT ([facility]) Routine 01/04/2025 5:37 PM BENCH GRINDER CCL PERCUTANEOUS CORONARY INTERVENTION Routine 01/04/2025 4:59 PM BENCH GRINDER Coronary artery disease involving caddo coronary artery of caddo heart with angina pectoris (HCC) CCL LEFT HEART CATH Routine 01/04/2025 4 :59 PM BENCH GRINDER Coronary artery disease involving caddo coronary artery of caddo heart with angina pectoris (HCC) BASIC METABOLIC PANEL (CALCIUM TOTAL) STAT 01/04/2025 11:36 AM BENCH GRINDER Coronary artery disease involving caddo coronary artery of caddo heart with angina pectoris (HCC) CBC W/O DIFFERENTIAL 12/30/2024 11:58 AM BENCH GRINDER BASIC METABOLIC PANEL (CALCIUM TOTAL) 12/30/2024 11:58 AM BENCH GRINDER EKG 12-LEAD Routine 12/27/2024 10:07 AM BENCH GRINDER Persistent atrial fibrillation (HCC) ENDOSCOPY, COLON, SCREENING Routine 07/20/2023 1:14 PM CDT INFECTIOUS DISEASE TESTING NTL Routine 08/22/2016 8:57 AM CDT from Last 3 Months or Most Recently Relevant to Health Maintenance Results * ACT LR - POCT ([facility]) (01/04/2025 5:49 PM BENCH GRINDER) Only the most recent of2 resultswithin the time period is included. ACT LR 282 See result comments sec 01/09/2025 7:16 AM BENCH GRINDER [facility] Blood BLOOD SPECIMEN / Unknown 01/04/2025 5:49 PM BENCH GRINDER 01/09/2025 7:16 AM BENCH GRINDER Narrative [facility] - 01/09/2025 7:16 AM BENCH GRINDER ACT-LR Therapeutics ranges are: Cardiac nitriles lab technician = 200-300 seconds Sheath pull = [...] Ward MD LAB - COAGULATION OR DERABLES [facility] [address] [place] [address], [facility] [phone] * CCL LEFT HEART CATH, CCL PERCUTANEOUS CORONARY INTERVENTION (01/04/2025 4:59 PM BENCH GRINDER) Anatomical Region Laterality Modality X-Ray Angiograph y Narrative 01/06/2025 7:41 AM BENCH GRINDER LM 30-40% (MLA 9.5 cm2). Prox RCA lesion is 50% stenosed. Negative by iFR (0.99) LVEDP: 6 mmHg. Lcx and LAD without obstructive disease but very tortuous vessels. Reason for Procedure 74 year old male with past medical history persistent a fib (on Eliquis, flecainide), PAD, HTN, CAD presents for [facility] with Dr. Ward. Patient has known [...] METABOLIC PANEL (CALCIUM TOTAL) (01/04/2025 11:36 AM BENCH GRINDER) Only the most recent of2 resultswithin the time period is included. BUN 25 7 - 26 mg/dL 01/04/2025 12:48 PM [facility] Creatinine 1.43(H) 0.71 - 1.16 mg/dL 01/04/2025 12:48 PM [facility] Sodium 140 136 - 145 mmol/L 01/04/2025 12:48 PM [facility] Potassium 4.6(H) 3.5 - 4.5 mmol/L 01/04/2025 12:48 PM [facility] Chloride 104 98 - 107 mmol/L 01/04/2025 12:48 PM [facility] CO2 27 22 - 29 mmol/L 01/04/2025 12:48 PM [facility] Glucose 88 70 - 99 mg/dL 01/04/2025 12:48 PM [facility] Calcium 9.4 8.4 - 10.2 mg/dL 01/04/2025 12:48 PM [facility] Anion Gap 9 6 - 16 01/04/2025 12:48 PM [facility] BUN/Creatinine Ratio 17 7 - 23 01/04/2025 12:48 PM [facility] Osmolality Calculated 294 275 - 295 mOsm/kg 01/04/2025 12:48 PM [facility] eGFR by CKD-EPI 51(L) >=90 mL/min/1.7 3 m2 01/04/2025 12:48 PM [facility] Blood BLOOD SPECIMEN / Unknown Venipuncture / Unknown 01/04/2025 11:36 AM BENCH GRINDER 01/04/2025 12:35 PM BENCH GRINDER Courtney [facility] - CHEMISTRY ORDAmos CASTELLON Performing Organization Address City/State/[facility] Co de Phone Number [address] [place] [address], [facility] [phone] * (ABNORMAL) CBC W/O DIFFERENTIAL (12/30/2024 11:58 AM BENCH GRINDER) White Blood Cell Count 4.8 3.8 - [...] Comment: REPORT COMMENT: FASTING:NO Test Performed at: [facility] [employer] [address] GEORGE SAAVEDRA MD 12/30/2024 11:5 8 AM BENCH GRINDER 12/30/2024 12:00 PM BENCH GRINDER [facility] - HEMATOLOGY ORD ERABLES Performing Organization Address [facility] Co de Phone Number [address] [address] * EKG 12-LEAD (12/27/2024 10:07 AM BENCH GRINDER) Courtney KENNY ECG ORDERABLES Performing Organization Address [facility] Co de Phone Number [facility] * [...] entire procedure. Procedure Code(s): --- Professional --- 19659, Colonoscopy, flexible; with biopsy, single or multiple Diagnosis Code(s): --- Professional --- Z85.048, Personal history of other malignant neoplasm of rectum, rectosigmoid junction, and anus D12.6, Benign neoplasm of colon, unspecified CPT copyright 2021 [employer]. All rights reserved. The codes documented in this report are preliminary and upon footwear factory worker review may be revised to meet current compliance requirements. Irene Rojas, 07/20/2023 1:58:28 PM Note Initiated On: 07/20/2023 1:14 PM Number of Addenda: [address] [facility] [address] [place] [id number] [place] [address] 07/20/2023 1:14 PM CDT Irene Rojas MD GI PROCEDURE ORDER CALEB Performing Organization Address City/[facility]/ZIP Co de Phone Number [facility] * (ABNORMAL) INFECTIOUS DISEASE TESTING NT (08/22/2016 8:57 AM CDT) Hepatitis B Surface Antigen Negative Negative [facility] Hepatitis C Virus Antibody Negative Negative [facility] HIV-1 / HIV-2 Antibody Western Blot Negative Negative [facility] Hepatitis B Core Virus Antibody Negative Negative [facility] HTLV-I/II Antibody Negative Negative [facility] NT T. 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
--- OUTSIDE RECORDS SUMMARY | 2025-01-25 15:27 | XMS_ITS | Clinical Summary ---
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 Care Teams Facetor Relationship Specialty Start Date End Date Billy Jalloh MD [address] [facility] [address] [place] [address] PCP - General Internal Medicine 01/27/19 Ricardo Hui DO [address] [facility] [address] [place] [address] Consulting Physician Oncology 02/15/19
--- OUTSIDE RECORDS SUMMARY | 2025-01-25 15:27 | XMS_ITS | Encounter Summary ---
Author Organization [facility] Address [address] [facility] [address] Care Team Providers Care Servomechanism Designer Name Role Phone Billy Jalloh MD Primary Care Provider Jamie Arboleda MD Unavailable Ruben Park MD Unavailable Yoni Young CD Unavailable Vadim Xiong MD Unavailable [phone] Encounter Details Date Type Department Care Team (Latest Contact Info) Description 03/16/2015 Lab Requisition [facility] - Lab Cytogenetics [address] [place] [address] Ruben Park MD [address] [place] [address] Rd [address] [place] [address] Waldenstrom macroglobulinemia (HCC) Social History [...] Description 03/23/2025 11:00 AM CDT Office Visit [facility] - Cardiology [address] [facility], [facility] [address] [place] [address] Clifford Nolan MD [address] [facility], [facility] [address] [place] [address] 03/27/2025 11:00 AM CDT Office Visit [facility] - Dermatology [address] [place] [address], [place] [address] Rosie Quigley MD [address] [place] [address] [address] [place] [address] 03/30/2025 11:00 AM CDT Office Visit [facility] - Pulmonology [address] [place] [address], [place] [address] Jamie Arboleda MD [address] [place] [address] [address] DIV OF PULMONARY/[place] [address] 08/08/2025 10:45 AM CDT Office Visit [facility] - General Surgery [address] [place] [address], [place] [address] Irene Rojas MD [address] [place] [address] [address] [place] [address] documented as of this encounter Procedures Procedure Name Priority Date/Time Associated Diagnosis Comments CYTOGENETICS CANCER PANEL Routine 03/16/2015 12:00 AM CDT Waldenstrom macroglobulinemia [ICD-9-CM] documented in this encounter Results * CYTOGENETICS CANCER PANEL (03/16/2015 12:00 AM CDT) Indication for Study Waldenstrom's Disease 5 7:24 AM CDT [facility] MOLE[facility]ULAR CYTOGENOMIC LAB Results Cytogenetics Analysis and count of 20 cells (7 cells karyotyped, GTL-banding) from 72-hour Interleukin stimulated bone marrow cultures showed the following chromosome pattern: 46,XY[20] 5 7:24 AM [facility] MOLECULAR CYTOGENOMIC LAB Interpretation Male chromosome analysis showing 46,XY with no evidence for any clonal structural or numerical abnormality in all cells examined at 400 average band resolution. 5 7:24 AM [facility] MOLECULAR CYTOGENOMIC LAB Historical Cytogenomic Report [id number] from 01/08/2015 Results Analysis of 200 interphase cells hybridized to dual breakapart ALK, BCL6, C-MYC, MALT and dual fusion CCND1, BCL2, and MYC specific fluorescent labeled probes* directed onto 2p23, 3q27, 8q24, 18q21 and 11q13, 18q21 and 8q24 showed the following results: nuc ashu(ALKx2)[196/200 ],(BCL6x2)[191/200 ],(CEP8,C-MYC,IGH) x2[177/200],(C-MYC x2)[191/200],(CCND 1,IGH)x2[190/200], (ENOV4b9)[193/200] ,(IGH,BCL2)x2[190/ 200] Normal Note: The remaining percentage [...] average band resolution. 5 7:24 AM CDT [facility] MOLECULAR CYTOGENOMIC LAB Client Information [facility] - [id number] [facility] Lab Numbers: [id number] FISH, [id number] chrom 5 7:24 AM CDT [facility] MOLECULAR CYTOGENOMIC LAB Other BONE MARROW SPECIMEN / Unknown 03/16/2015 03/16/2015 2:50 PM CDT Ruben Park MD LAB - PATHOLOGY/CY TOLOGY ORDERABLES [facility] MOLECULAR CYTOGENOMIC LAB [address] [facility] [place] [place] [address] documented in this encounter Visit Diagnoses Diagnosis Waldenstrom macroglobulinemia Macroglobulinemia documented in this encounter Care Teams Servomechanism Designer Relationship Specialty Start Date End Date Billy Jalloh MD [address] [place] [address] [address] [place] [address] PCP - General 07/08/16 Jamie Arboleda MD [address] [place] [address] Pulmonary Disease 07/08/18 Ruben Park MD [address] [place] [address] Hematology and Oncology 07/08/18 Yoni Young, SHERRILL [address] [place] [address] Cardiology 07/08/18 Vadim Xiong MD [address] [place] [address] Gastroenterology 12/02/18 documented as of this encounter
--- OUTSIDE RECORDS SUMMARY | 2025-01-25 15:27 | XMS_ITS | Encounter Summary ---
Author Organization [facility] Address [address] [place] [address] Care Team Providers Care Taxi Dancer Name Role Phone Billy Jalloh MD Primary Care Provider Jamie Arboleda MD Unavailable [phone] Ruben Park MD Unavailable [phone] Yoni Young CD Unavailable Vadim Xiong MD Unavailable [phone] Encounter Details Date Type Department Care Team (Late st Contact Info) Description 01/08/2015 Lab Requisition [facility] - Lab Cytogenetics [address] [place] [address] Ruben Park MD [address] [place] [address] Rd [address] [place], [place] [id number] Waldenstrom's disease (HCC) Social History Tobacco Use [...] 03/23/2025 11:00 AM CDT Office Visit [facility] - Cardiology [address] [facility], [facility] [address] [place] [address] Clifford Nolan MD [address] [facility], [facility] [address] [place] [address] 03/27/2025 11:00 AM CDT Office Visit [facility] - Dermatology [address] [place] [address], [place] [address] Rosie Quigley MD [address] [place] [address] [address] [place] [address] 03/30/2025 11:00 AM CDT Office Visit [facility] - Pulmonology [address] [place] [address], [place] [address] Jamie Arboleda MD [address] [place] [address] [address] DIV OF PULMONARY/[place] [address] 08/08/2025 10:45 AM CDT Office Visit [facility] - General Surgery [address] [place] [address], [place] [address] Irene Rojas MD [address] [place] [address] [address] [place] [address] documented as of this encounter Procedures Procedure Name Priority Date/Time Associated Diagnosis Comments CYTOGENETICS CANCER PANEL Routine 01/08/2015 1:45 PM DAYCARE WORKER Waldenstrom's disease [ICD-9-CM] documented in this encounter Results * CYTOGENETICS CANCER PANEL (01/08/2015 1:45 PM DAYCARE WORKER) Indication for Study Waldenstrom's Disease FISH Lymphoma panel requested by physician 7:21 AM DAYCARE WORKER [facility] MOLECULAR CYTOGENOMIC LAB Results Cytogenetics Analysis of 200 interphase cells hybridized to dual breakapart ALK, BCL6, C-MYC, MALT and dual fusion CCND1, BCL2, and MYC specific fluorescent labeled probes* directed onto 2p23, 3q27, 8q24, 18q21 and 11q13, 18q21 and 8q24 showed the following results: nuc ashu(ALKx2)[196/200], (BCL6x2)[191/200],(C EP8,C-MYC,IGH)x2[177 /200],(C-MYCx2)[191/ 200],(CCND1,IGH)x2[1 90/200],(CQQT7r4)[19 3/200],(IGH,BCL2)x2[ 190/200] Normal Note: The remaining percentage of cells have signals that either represent G1 cells or endoreduplicated cells of no significance. Analysis and count of 20 cells (8 cells karyotyped, GTL-banding) from 24-hour unstimulated and 72-hour Interleukin stimulated bone marrow cultures showed the following chromosome pattern: 46,XY[20] 5 7:21 AM [facility] MOLECULAR CYTOGENOMIC LAB Interpretation FISH was negative for all the probes of the lymphoma panel. Chromosome analysis is in progress. 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 5 7:21 AM [facility] MOLECULAR CYTOGENOMIC LAB Preliminary result electronically signed by Paula Umaña, PhD [facility] on 01/11/2015 at 10:34 AM Disclaimer *This test was developed, and its performance characteristics determined by [facility] Molecular Cytogenetics Laboratory as required by CLIA [...] pathology with cytogenetic findings. 5 7:21 AM [facility] MOLECULAR CYTOGENOMIC LAB Client Information [facility] - [id number] [facility] Lab Number: [id number] 5 7:21 AM [facility] MOLECULAR CYTOGENOMIC LAB Other BONE MARROW SPECIMEN / Unknown 01/08/2015 1:45 PM DAYCARE WORKER 01/08/2015 1:45 PM [facility] Ruben Park MD LAB - PATHOLOGY/CY DILSHAD ORDERABLES [facility] MOLECULAR CYTOGENOMIC LAB [address] [place] [address] documented in this encounter Visit Diagnoses Diagnosis Waldenstrom's disease Macroglobulinemia documented in this encounter Care Teams Taxi Dancer Relationship Specialty Start Date End Date Billy Jalloh MD [address] [place] [address] PCP - General 07/08/16 Jamie Arboleda MD [address] [place] [address] Pulmonary Disease 07/08/18 Ruben Park MD [address] [place] [address] Hematology and Oncology 07/08/18 Yoni Young, CD [address] [place] [address] Cardiology 07/08/18 Vadim Xiong MD [address] [place] [address] Gastroenterology 12/02/18 documented as of this encounter
--- OUTSIDE RECORDS SUMMARY | 2025-01-25 15:27 | XMS_ITS | Patient Health Summary ---
Author Organization [facility] Address [address] [place] [address] Care Team Providers Care Supervisor Plasma Name Role Phone Billy Jalloh MD Primary Care Provider Jamie Arboleda MD Unavailable [phone] Ina Boyer MD Unavailable Yoni Young CD Unavailable [phone] Vadim Xiong MD Unavailable [phone] Note from [facility],non-owned Affiliates and Associated Physician Practices is amultiple site organization consisting of ambulatory clinics and hospital sitesin [place], [place], [place] and [place]. This disclosure is being madepursuant to the Care Everywhere program and may not contain all information available regarding this patient. Last updated 18.[facility] Allergies * Gabapentin(Rash,Urticaria) -Medium Criticality [...] once daily 3 refills by 12/27/2025 * kdkhdzuwmxe-nsaclsfnj-ronqmq (Trelegy Ellipta) 200-62.5-25 MCG/ACT inhaler (Started 01/17/2025) Inhale 1 (one) puff by mouth once daily 3 refills by 01/17/2026 Ended Medications* hydroCHLOROthiazide (Hydrodiuril) 25 MG tablet(Started 05/16/2024)(Discontinued) Take 0.5 (one-half) tablet by mouth once daily 3 refills by 05/16/2025 * atorvastatin (Lipitor) 20 MG tablet(Discontinued) Take 1 (one) tablet by mouth at bedtime * trkhcvj-swbdledyycz-eixlplredr (Breztri Aerosphere) 160-9-4.8 MCG/ACT inhaler (Started 11/09/2024)(Discontinued) Inhale 2 (two) puffs by mouth 2 times daily 5 refills by 11/09/2025 Active Problems Problem Noted Date Diagnosed Date Coronary artery disease invo lving redding coronary artery of redding heart with angina pectoris 12/27/2024 Actinic keratosis [...] persistent 03/09/2018 Persistent atrial fibrillation 02/28/2018 Other fpc (current) drug therapy 6 Waldenstrom's macroglobulinemia 09/15/2016 [...] Comments Blood Pressure 109/72 01/04/2025 8:57 PM LIFE ADVISOR Pulse 56 01/04/2025 8:57 PM LIFE ADVISOR Temperature 36.7 C (98.1 F) 01/04/2025 5:06 PM LIFE ADVISOR Respiratory Rate 13 01/04/2025 8:57 PM LIFE ADVISOR Oxygen Saturation 94% 01/04/2025 8:57 PM LIFE ADVISOR Inhaled Oxygen Concentration - - Weight 99.8 kg (220 lb) 01/04/2025 11:14 AM LIFE ADVISOR Height 193 cm (6' 4 ) 01/04/2025 11:14 AM LIFE ADVISOR Body Mass Index 26.78 01/04/2025 11:14 AM LIFE ADVISOR Medical Devices Explanted 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 Shelf Expiration Date Model / Serial / Lot [employer] Ureteral Stents Explanted:Qty: 2 on 06/10/2019 by Heber Vizcarra MD at [facility] Bilateral: Ureter [employer] [place]ile 05/02/2022 [id number] / [id number] Procedures * ACT LR - POCT ([facility])(Performed 01/04/2025) * ACT LR - POCT ([facility])(Performed 01/04/2025) * CCL PERCUTANEOUS CORONARY INTERVENTION(Performed 01/04/2025) Performed for Coronary artery disease involving redding coronary artery of redding heart with angina pectoris (HCC) * CCL LEFT HEART CATH(Performed 01/04/2025) Performed for Coronary artery disease involving redding coronary artery of redding heart with angina pectoris (HCC) * BASIC METABOLIC PANEL (CALCIUM TOTAL)(Performed 01/04/2025) Performed for Coronary artery disease involving redding coronary artery of redding heart with angina pectoris (HCC) * CBC W/O DIFFERENTIAL(Performed 12/30/2024) * BASIC METABOLIC PANEL (CALCIUM TOTAL)(Performed 12/30/2024) * EKG 12-LEAD(Performed 12/27/2024) Performed for Persistent atrial fibrillation (HCC) * CA DESTRUCT BENIGN LESION, 1-14(Performed 09/19/2024) Performed for Seborrheic keratosis, inflamed * CA DESTROY PREMALIG LESION, 2-14(Performed 09/19/2024) Performed for Actinic keratosis * CA DESTROY PREMALIG LESION, 1ST LESION(Performed 09/19/2024) Performed for Actinic keratosis * PFT OXYGEN DESATURATION STUDY(Performed 05/06/2024) Performed for Centrilobular emphysema (HCC) * COMPLETE PFT W/WO BRONCHODILATOR(Performed 05/06/2024) Performed for Centrilobular emphysema (HCC) * CA DESTR MALIG TRUNK,EXTREM 1.1-2 CM(Performed 04/19/2024) Performed for 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, Basal cell carcinoma (BCC) of anterior chest * CA DESTR MALIG TRUNK,EXTREM 0.6-1 CM(Performed 04/19/2024) Performed for 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, Basal cell carcinoma (BCC) of anterior chest * EKG 12-LEAD(Performed 03/24/2024) Performed for Persistent atrial fibrillation (HCC) * CA TANGNTL BX SKIN SINGLE LES(Performed 03/10/2024) Performed for Neoplasm of uncertain behavior * CA TANGNTL BX SKIN EA SEP ADDL(Performed 03/10/2024) Performed for Neoplasm of uncertain behavior * CA DESTRUCT BENIGN LESION, 1-14(Performed 03/10/2024) Performed for Seborrheic keratosis, inflamed * CA DESTROY PREMALIG LESION, 1ST LESION(Performed 03/10/2024) Performed for Actinic keratosis * CA DESTROY PREMALIG LESION, 2-14(Performed 03/10/2024) Performed for Actinic keratosis * DERMATOPATHOLOGY(Performed 03/10/2024) Performed for Neoplasm of uncertain behavior * PATHOLOGY TISSUE(Performed 07/20/2023) Performed for Screen for colon cancer * COLONOSCOPY SCREEN(Performed 07/20/2023) Performed for Screen for colon cancer * ENDOSCOPY, COLON, SCREENING(Performed 07/20/2023) * PROC EKG IN CLINIC(Performed 03/27/2023) Performed for Persistent atrial fibrillation (HCC) * CA TANGNTL BX SKIN SINGLE LES(Performed 03/02/2023) Performed for Neoplasm of uncertain behavior of skin * CA DSTRJ ALL PRMLG 15 OR MORE(Performed 03/02/2023) [...] Performed for Paroxysmal atrial fibrillation (HCC) * CA DESTROY PREMALIG LESION, 1ST LESION(Performed 03/10/2022) Performed for Actinic keratosis * CA DESTROY PREMALIG LESION, 2-14(Performed 03/10/2022) Performed for Actinic keratosis * PROC EKG IN CLINIC(Performed 03/06/2022) Performed for Paroxysmal atrial fibrillation (HCC) * IGM BLOOD(Performed 10/17/2021) Performed for Hypogammaglobulinemia, acquired (HCC) * IGG BLOOD(Performed 10/17/2021) Performed for Hypogammaglobulinemia, acquired (HCC) * COMPREHENSIVE METABOLIC PANEL(Performed 10/17/2021) Performed for Hypogammaglobulinemia, acquired (HCC) * CBC W AUTO DIFFERENTIAL(Performed 10/17/2021) Performed for Hypogammaglobulinemia, acquired (HCC) * CA CHMSRG MOHS MG TQ H/N/H/F/G 1ST STAG 5 BLOC(Performed 10/09/2021) Performed for SCC (squamous cell carcinoma), hand, right * PROC MOHS SURG HEAD/NECK/HAND/FEET/KIRK(Performed 10/09/2021) Performed for SCC (squamous cell carcinoma), hand, right * CA CHMSRG MOHS MG TQ H/N/H/F/G 1ST STAG 5 BLOC(Performed 09/20/2021) 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 * CA CHMSRG MOHS MG TQ H/N/H/F/G EA ADDL STAG(Performed 09/20/2021) 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 * VAS ARTERIAL ANKLE ARM INDEX(Performed 09/19/2021) Performed for Arthralgia of both lower legs * CARDIAC EKG ORDER(Performed 09/11/2021) * PROC EKG IN CLINIC(Performed 09/05/2021) Performed for Atrial fibrillation, unspecified type (HCC) * CA TANGNTL BX SKIN SINGLE LES(Performed 08/26/2021) Performed for Neoplasm of uncertain behavior of skin * CA TANGNTL BX SKIN EA SEP ADDL(Performed 08/26/2021) Performed for Neoplasm of uncertain behavior of skin * CA DESTROY PREMALIG LESION, 1ST LESION(Performed 08/26/2021) Performed for Actinic keratosis * CA DESTROY PREMALIG LESION, 2-14(Performed 08/26/2021) Performed for [...] 08/07/2021) Performed for Coronary artery disease involving redding heart without angina pectoris, unspecified vessel or [...] 05/25/2020) Performed for Hypogammaglobulinemia, acquired (HCC) * CA CHMSRG MOHS MG TQ H/N/H/F/G 1ST STAG 5 BLOC(Performed 05/24/2020) Performed for 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, right * CA REPR CMPL WND LID,NOS,EAR 2.5-7.5(Performed 05/24/2020) Performed [...] 02/09/2020) Performed for Hypogammaglobulinemia, acquired (HCC) * CA DESTR MALIG TRUNK,EXTREM 1.1-2 CM(Performed 01/02/2020) Performed for Basal cell carcinoma (BCC) of back * COMPLETE PFT W/WO BRONCHODILATOR(Performed 11/03/2019) Performed for Moderate chronic obstructive pulmonary disease (HCC) * CA TANGNTL BX SKIN SINGLE LES(Performed 09/19/2019) Performed for Neoplasm of uncertain behavior * CA TANGNTL BX SKIN EA SEP ADDL(Performed 09/19/2019) Performed for Neoplasm of uncertain behavior * CA DESTROY PREMALIG LESION, 1ST LESION(Performed 09/19/2019) Performed for Actinic keratosis * CA DESTROY PREMALIG LESION, 2-14(Performed 09/19/2019) Performed for [...] SCREEN - POCT (IP) SLH(Performed 01/18/2019) * CA DSTRJ ALL PRMLG 15 OR MORE(Performed 01/18/2019) [...] * CYTOMEGALOVIRUS (CMV) QUANTITATIVE PLASMA(Performed 07/08/2018) * CA DSTRJ ALL PRMLG 15 OR MORE(Performed 07/05/2018) Performed for Actinic keratosis * PFT OXYGEN DESATURATION STUDY(Performed 06/28/2018) Performed for Centrilobular emphysema (HCC) * HIGH ALTITUDE SIMULATION TEST (HAST) STUDY(Performed 06/28/2018) Performed for Centrilobular emphysema (HCC) * CT CHEST WO CONTRAST(Performed 06/21/2018) Performed for Dyspnea, unspecified type, Shortness of breath, Ground glass opacity present on imaging of lung, Other fpc (current) drug therapy, Cough, persistent * CYTOMEGALOVIRUS (CMV) QUANTITATIVE PLASMA(Performed 06/14/2018) 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, Waldenstrom macroglobulinemia (HCC), Centrilobular [...] * CBC W AUTO DIFFERENTIAL(Performed 06/03/2018) * MPO/CA 3 AUTOANTIBODIES PANEL(Performed 06/03/2018) * CRYPTOCOCCUS ANTIGEN BLOOD(Performed 06/03/2018) * COMPREHENSIVE METABOLIC PANEL(Performed 06/02/2018) * HISTOPLASMA ANTIGEN BLOOD(Performed 06/02/2018) * CYCLIC CITRULLINATED PEPTIDE(CCP) AB IGG(Performed 06/02/2018) * ASPERGILLUS GALACTOMANNAN ANTIGEN BLOOD(Performed 06/02/2018) * CBC W AUTO DIFFERENTIAL(Performed 06/02/2018) * RHEUMATOID FACTOR BLOOD QUANTITATIVE(Performed 06/02/2018) * QUANTIFERON TB-GOLD (CLIENT INCUBATED)(Performed 06/02/2018) * ANTI-NEUTROPHIL CYTOPLASMIC ANTIBODY IGG(Performed 06/02/2018) * BOOF-T-CUWUCX (1,3) (FUNGITELL)(Performed 06/02/2018) * KIM BLOOD SCREEN [...] present on imaging of lung * CYTOLOGY NON-SHUTTLE CAR OPERATOR PANEL (STL)(Performed 06/01/2018) Performed for Ground glass [...] Abnormal CT scan of lung * CYTOLOGY NON-SHUTTLE CAR OPERATOR PANEL (STL)(Performed 06/01/2018) Performed for Ground glass [...] T4 FREE(Performed 01/08/2015) * FERRITIN(Performed 01/08/2015) * LWHO-5-EBLCYYOTHTPVN BLOOD(Performed 01/08/2015) * TRANSFERRIN(Performed 01/08/2015) * IRON [...] 01/08/2015) Results * ACT LR - POCT ([facility]) (01/04/2025 5:49 PM LIFE ADVISOR) Only the most recent of2 resultswithin the time period is included. ACT LR 282 See result comments sec 01/09/2025 7:16 AM [facility] Blood BLOOD SPECIMEN / Unknown 01/04/2025 5:49 PM LIFE ADVISOR 01/09/2025 7:16 AM LIFE ADVISOR Narrative [facility] - 01/09/2025 7:16 AM LIFE ADVISOR ACT-LR Therapeutics ranges are: Cardiac labourers = 200-300 seconds Sheath pull = ACT [...] Ward MD LAB - COAGULATION OR DERABLES [facility] [address] [place] [address], [place] [phone] * CCL LEFT HEART CATH, CCL PERCUTANEOUS CORONARY INTERVENTION (01/04/2025 4:59 PM LIFE ADVISOR) Anatomical Region Laterality Modality X-Ray Angiograph y Narrative 01/06/2025 7:41 AM LIFE ADVISOR LM 30-40% (MLA 9.5 cm2). Prox RCA lesion is 50% stenosed. Negative by iFR (0.99) LVEDP: 6 mmHg. Lcx and LAD without obstructive disease but very tortuous vessels. Reason for Procedure 74 year old male with past medical history persistent a fib (on Eliquis, flecainide), PAD, HTN, CAD presents for [facility] with Dr. Ward. Patient has known [...] METABOLIC PANEL (CALCIUM TOTAL) (01/04/2025 11:36 AM LIFE ADVISOR) Only the most recent of10 resultswithin the time period is included. BUN 25 7 - 26 mg/dL 01/04/2025 12:48 PM [facility] Creatinine 1.43(H) 0.71 - 1.16 mg/dL 01/04/2025 12:48 PM [facility] Sodium 140 136 - 145 mmol/L 01/04/2025 12:48 PM [facility] Potassium 4.6(H) 3.5 - 4.5 mmol/L 01/04/2025 12:48 PM [facility] Chloride 104 98 - 107 mmol/L 01/04/2025 12:48 PM [facility] CO2 27 22 - 29 mmol/L 01/04/2025 12:48 PM [facility] Glucose 88 70 - 99 mg/dL 01/04/2025 12:48 PM [facility] Calcium 9.4 8.4 - 10.2 mg/dL 01/04/2025 12:48 PM [facility] Anion Gap 9 6 - 16 01/04/2025 12:48 PM [facility] BUN/Creatinine Ratio 17 7 - 23 01/04/2025 12:48 PM [facility] Osmolality Calculated 294 275 - 295 mOsm/kg 01/04/2025 12:48 PM [facility] eGFR by CKD-EPI 51(L) >=90 mL/min/1.7 3 m2 01/04/2025 12:48 PM [facility] Blood BLOOD SPECIMEN / Unknown Venipuncture / Unknown 01/04/2025 11:36 AM LIFE ADVISOR 01/04/2025 12:35 PM LIFE ADVISOR Courtney KENNY LAB - CHEMISTRY KIT CASTELLON [facility] Organization Address City/State/ZIP Co de Phone Number [facility] [address] [place] [address], [facility] [phone] * (ABNORMAL) CBC W/O DIFFERENTIAL (12/30/2024 11:58 AM LIFE ADVISOR) Only the most recent of4 resultswithin the [...] Comment: REPORT COMMENT: FASTING:NO Test Performed at: [facility] [id number] GEORGE SAAVEDRA MD 12/30/2024 11:5 8 AM LIFE ADVISOR 12/30/2024 12:00 PM LIFE ADVISOR Courtney KENNY LAB - HEMATOLOGY ORD ERABLES Performing Organization Address [facility] de Phone Number [address] [address] * EKG 12-LEAD (12/27/2024 10:07 AM LIFE ADVISOR) Only the most recent of24 resultswithin the time period is included. Courtney KENYN ECG ORDERABLES Performing Organization Address [facility] Co de Phone Number MARYPAUL MABEL * CA DESTRUCT BENIGN LESION, 1-14 (09/19/2024 12:17 PM CDT) Narrative Rosie Quigley MD - 09/19/2024 12:17 PM CDT Lolly Leonard MD 09/19/2024 12:17 PM Diagnosis and treatment options discussed, addressing the benefit and risks of each. Pt wish to proceed with cryotherapy. Liquid Nitrogen was applied to lesion for 7-10s each. Number of cycles: 1. Wound care reviewed. Lolly Leonard MD [facility] Dermatology Resident Rosie Quigley MD PROCEDURE/MINOR SURG ICAL ORDERABLES * CA DESTROY PREMALIG LESION, 1ST LESION, CA DESTROY PREMALIG LESION, 2-14 (09/19/2024 12:15 PM CDT) Narrative Rosie Quigley MD - 09/19/2024 12:15 PM CDT Lolly Leonard MD 09/19/2024 12:16 PM Diagnosis and treatment options discussed, addressing the benefit and risks of each. Pt wish to proceed with cryotherapy. Liquid Nitrogen was applied to lesion(s) for 7-10s each. Number of cycles: 1. Wound care reviewed. Lolly Leonard MD [facility] Dermatology Resident Rosie Quigley MD PROCEDURE/MINOR SURG ICAL ORDERABLES * PFT OXYGEN DESATURATION STUDY (05/06/2024 1:02 PM CDT) Impressions Abel Hatfield MD - 05/06/2024 1:02 PM CDT [facility] Department of Pulmonary, Critical Care, and Sleep [...] of Pulmonary, Critical Care, & Sleep Medicine [employer] [facility] [employer] Attestation: I have reviewed the test data and agree with Dr. Otero's interpretation. Abel Hatfield MD 05/10/2024 Narrative Abel Hatfield MD - 05/06/2024 1:02 PM CDT Ra Otero MD 05/07/2024 3:53 PM Jamie Arboleda MD PFT ORDERABLES * COMPLETE PFT W/WO BRONCHODILATOR (05/06/2024 1:02 PM CDT) Impressions Abel Hatfield MD - 05/06/2024 1:02 PM CDT [facility] DEPARTMENT OF PULMONARY, CRITICAL CARE, AND [...] of Pulmonary, Critical Care and Sleep Medicine [facility] Attestation: I have reviewed the test data and agree with Dr. Otero's interpretation. Abel Hatfield MD 05/10/2024 Narrative Abel Hatfield MD - 05/06/2024 1:02 PM CDT Ra Otero MD 05/07/2024 3:54 PM Jamie Arboleda MD RESPIRATORY THERAPY ORDERABLES * CA DESTR MALIG TRUNK,EXTREM 0.6-1 CM, CA DESTR MALIG TRUNK,EXTREM 1.1-2 CM (04/19/2024 2:55 PM CDT) Narrative Rosie Quigley MD - 04/19/2024 2:55 PM CDT Shnae Roque MD 04/19/2024 3:34 PM PROCEDURE: Electrodessication [...] tolerated the procedure well. Shane Roque MD [facility] Dermatology Resident PROCEDURE: Electrodessication and Curettage Patient [...] tolerated the procedure well. Shane Roque MD [facility] Dermatology Resident Rosie Quigley MD PROCEDURE/MINOR SURG ICAL ORDERABLES * CA TANGNTL BX SKIN EA SEP ADDL, CA TANGNTL BX SKIN SINGLE LES (03/10/2024 12:23 [...] a patient labeled container and sent to [facility]. Patient agrees to phone call for results and message if not available. Rosie Quigley MD Rosie Quigley MD PROCEDURE/MINOR SURG ICAL ORDERABLES * CA DESTRUCT BENIGN LESION, 1-14 (03/10/2024 12:22 PM CDT) Rosie Green MD - 03/10/2024 12:22 PM CDT Rosie Quigley MD 03/10/2024 12:23 PM Diagnosis and treatment options discussed. Cryotherapy (Liquid Nitrogen) to one lesions on L neck for 8-10 seconds each. Number of cycles: 1. Wound care reviewed. Rosie Quigley MD PROCEDURE/MINOR SURG ICAL ORDERABLES * CA DESTROY PREMALIG LESION, 2-14, CA DESTROY PREMALIG LESION, 1ST LESION (03/10/2024 12:22 [...] is included. Case Report Dermatopathology Report Case: [id number] Authorizing Provider: Rosie Quigley MD Collected: 03/10/2024 03:33 AM Ordering Location: [facility] - Received: 03/10/2024 01:06 PM [...] characteristic determined by the Dermatopathology Laboratory at [facility], directed by Dr. Dorian Ledbetter. These tests need not be, and therefore are not, approved by the [place] Food and Drug Administration. The tests are used for clinical purposes. Billing Codes Specimen Charges Stain Charges 08087 74168 1 1 4 1:34 PM CDT DERMATOPATHOLOGY LABORATORY Embedded Images 4 1:34 PM CDT DERMATOPATHOLOGY LABORATORY Pathology/Cytology TISSUE SPECIMEN FROM SKIN / Unknown 03/10/2024 3:33 AM CDT 03/10/2024 1:06 PM CDT Miscellaneous samples (specimen) TISSUE SPECIMEN FROM SKIN / Unknown 03/10/2024 3:33 AM CDT 03/10/2024 1:06 PM CDT Rosie Quigley MD LAB - PATHOLOGY/CYTO LOGY ORDERABLES DERMATOPATHOLOGY LABORATORY [facility] - Department of Dermatology [address] [phone] * PATHOLOGY TISSUE (07/20/2023 1:40 PM CDT) Only the most recent of9 resultswithin the time period is included. Case Report Surgical Pathology Report Case: [id number] Authorizing Provider: Irene Rojas MD Collected: 07/20/2023 01:40 PM Ordering Location: [facility] Received: 07/20/2023 02:55 PM Pathologist: Ana Marquez MD Specimen: Colon, 60cm from stoma biopsy 07/21/2023 5:49 PM CDT [facility] PATHOLOGY [facility] Final Diagnosis Large intestine, 60 cm from stoma, biopsy (A): - Hyperplastic polyp 07/21/2023 5:49 PM CDT [facility] PATHOLOGY LAB Microscopic Description and Comment Microscopic [...] CDT U PATHOLOGY LAB Pathologist Location at [facility] 07/21/2023 5:49 PM CDT [facility] PATHOLOGY LAB Disclaimer The performance characteristics of all immunohistochemical and indirect immunofluorescence stains (if any) cited in this report were determined by the Histopathology Laboratory of [facility]. Some of these tests were developed by [...] attending (teaching) pathologist. 07/21/2023 5:49 PM CDT [facility] PATHOLOGY [facility] Embedded Images 07/21/2023 5:49 PM CDT [facility] PATH[facility]Y [facility] Biopsy, NOS COLON PART / Unknown 07/20/2023 1:40 PM CDT 07/20/2023 2:55 PM CDT Comment:Pre-op diagnosis: Screen for colon cancer [Z12.11] Irene Rojas MD LAB - PATHOLOGY/CY TOLOGY ORDERABLES [facility] PATH[facility] [address] [place], [place] [id number] [place] [address] * ENDOSCOPY, COLON, SCREENING (07/20/2023 1:14 PM [...] entire procedure. Procedure Code(s): --- Professional --- 06884, Colonoscopy, flexible; with biopsy, single or multiple Diagnosis Code(s): --- Professional --- Z85.048, Personal history of other malignant neoplasm of rectum, rectosigmoid junction, and anus D12.6, Benign neoplasm of colon, unspecified CPT copyright 2021 [employer]. All rights reserved. The codes documented in this report are preliminary and upon fusing machine operator review may be revised to meet current compliance requirements. Irene Rojas, 07/20/2023 1:58:28 PM Note Initiated On: 07/20/2023 1:14 PM Number of Addenda: [id number] [place] [address] PROVATION 07/20/2023 1:14 PM CDT Irene Rojas MD GI PROCEDURE ORDER [facility] PROVATION * PROC EKG IN CLINIC (03/27/2023 1:37 PM CDT) Only the most recent of9 resultswithin the time period is included. Narrative Clifford Nolan MD - 03/27/2023 1:37 PM CDT Clifford Nolan MD 03/27/2023 1:38 PM ECG personally reviewed: Sinus eduard in mid 50s Clifford Nolan MD ECG ORDERABLES * CA TANGNTL BX SKIN SINGLE LES (03/02/2023 4:46 [...] available. Nettie Zaidi MD Dermatology Resident, PGY-4 [facility], Department of Dermatology Rosie Quigley MD PROCEDURE/MINOR SURG ICAL ORDERABLES * CA DSTRJ ALL PRMLG 15 OR MORE (03/02/2023 [...] given. Nettie Zaidi MD Dermatology Resident, PGY-4 [facility], Department of Dermatology Rosie Quigley MD PROCEDURE/MINOR SURG ICAL ORDERABLES * BLOOD GAS COOX ART POC NOTIFICATION (02/27/2023 10:42 AM CDT) Comment Notification Label Only - See Separate Report 02/27/2023 12:[address] [facility] Other MISCELLANEOUS SAMPLES / Unknown Collection / Unknown 02/27/2023 10:42 AM CDT 02/27/2023 10:51 AM CDT Jamie Arboleda MD LAB - BLOOD GASES OR DERABLES Performing Organization Address [facility] Co de Phone Number [facility] [address] [address], [facility] [phone] * HSAT High Altitude Simulation Test [facility] PFT Lab (02/27/2023 10:31 AM CDT) Impressions Jeffery eVga MD - 02/27/2023 10:31 AM CDT [facility] DEPARTMENT OF PULMONARY, CRITICAL CARE, AND [...] PFT ORDERABLES * PFT Oxygen Desaturation Study [facility] PFT Lab (02/27/2023 10:31 AM CDT) Impressions Jeffery Vega MD - 02/27/2023 10:31 AM CDT [facility] DEPARTMENT OF PULMONARY, CRITICAL CARE, AND SLEEP [...] of Pulmonary, Critical Care, & Sleep Medicine [employer] 02/28/2023 5:15 PM I [...] included. Jamie Arboleda MD PFT ORDERABLES * CA DESTROY PREMALIG LESION, 2-14, CA DESTROY PREMALIG LESION, 1ST LESION (03/10/2022 12:08 PM CDT) Narrative Rosie Quigley MD - 03/10/2022 12:08 PM CDT Leann Burris MD 03/10/2022 12:08 PM Diagnosis and treatment options discussed. Cryotherapy (Liquid Nitrogen) to 8 AK ( L voodoo x2, L preauricular x2, L antihelix x2, L cheek, R pretibial region (8 total)) x 6-7 seconds each. Number of cycles: 1. Wound care reviewed. Leann Burris MD [facility] Dermatology Resident, PGY-3 Rosie Quigley MD PROCEDURE/MINOR SURG ICAL ORDERABLES * (ABNORMAL) CBC W AUTO DIFFERENTIAL (10/17/2021 10:11 AM [facility]) Only the most recent of229 resultswithin the time period is included. WBC 3.9 3.5 - 10.5 10 3/uL 10/17/2021 10:45 AM [facility] RBC 4.01(L) 4.30 - 5.70 10 6/uL 10/17/2021 10:45 AM [facility] Hemoglobin 12.7 12.0 - 17.6 g/dL 10/17/2021 10:45 AM [facility] Hematocrit 37.5 35.2 - 51.7 % 10/17/2021 10:45 AM [facility] MCV 93.5 80.7 - 98.3 fL 10/17/2021 10:45 AM [facility] MCH 31.7 26.7 - 34.0 pg 10/17/2021 10:45 AM [facility] MCHC 33.9 30.8 - 35.9 g/dL 10/17/2021 10:45 AM [facility] Platelet Count 149(L) 150 - 400 10 3/uL 10/17/2021 10:45 AM [facility] RDW-SD 41.1 36.0 - 50.0 fL 10/17/2021 10:45 AM [facility] RDW-CV 12.0 11.2 - 14.8 % 10/17/2021 10:45 AM [facility] MPV 8.8(L) 9.4 - 12.9 fL 10/17/2021 10:45 AM [facility] nRBC Absolute 0.00 0 10 3/uL 10/17/2021 10:45 AM [facility] nRBC Auto 0.0 0 /100 WBC 10/17/2021 10:45 AM [facility] Neutrophils % 51.0 35.0 - 70.0 % 10/17/2021 10:45 AM [facility] Lymphocytes % 31.9 20.0 - 43.0 % 10/17/2021 10:45 AM [facility] Monocytes % 12.7 5.0 - 13.0 % 10/17/2021 10:45 AM [facility] Eosinophils % 3.6 0.0 - 6.0 % 10/17/2021 10:45 AM [facility] Basophil % 0.5 0.0 - 2.0 % 10/17/2021 10:45 AM [facility] Neutrophils Absolute 2.0 1.6 - 7.0 10 3/uL 10/17/2021 10:45 AM [facility] Lymphocyte Absolute 1.2 1.1 - 3.9 10 3/uL 10/17/2021 10:45 AM [facility] Monocytes Absolute 0.49 0.26 - 1.07 10 3/uL 10/17/2021 10:45 AM [facility] Eosinophils Absolute 0.14 0.00 - 0.47 10 3/uL 10/17/2021 10:45 AM [facility] Basophils Absolute 0.02 0.00 - 0.08 10 3/uL 10/17/2021 10:45 AM [facility] Immature Granulocytes % 0.3 0.0 - 1.0 % 10/17/2021 10:45 AM [facility] Immature Granulocytes Absolute 0.01 10/17/2021 10:45 AM [facility] Blood BLOOD SPECIMEN / Unknown Venipuncture / Unknown 10/17/2021 10:11 AM LIFE ADVISOR 10/17/2021 10:30 AM [facility] Ina Boyer MD LAB - HEMATOLOGY O RDERABLES [facility] [address] [place] [address], [facility] [phone] * (ABNORMAL) COMPREHENSIVE METABOLIC PANEL (10/17/2021 10:11 AM [facility]) Only the most recent of139 resultswithin the time period is included. BUN 18 7 - 26 mg/dL 10/17/2021 10:54 AM [facility] Creatinine 1.03 0.71 - 1.16 mg/dL 10/17/2021 10:54 AM [facility] Sodium 142 136 - 145 mmol/L 10/17/2021 10:54 AM [facility] Potassium 4.1 3.5 - 4.5 mmol/L 10/17/2021 10:54 AM [facility] Chloride 103 98 - 107 mmol/L 10/17/2021 10:54 AM [facility] CO2 28 22 - 29 mmol/L 10/17/2021 10:54 AM [facility] Glucose 77 70 - 115 mg/dL 10/17/2021 10:54 AM [facility] Calcium 9.3 8.4 - 10.2 mg/dL 10/17/2021 10:54 AM [facility] Protein Total 6.6 6.0 - 8.3 g/dL 10/17/2021 10:54 AM [facility] Albumin 3.8 3.4 - 5.0 g/dL 10/17/2021 10:54 AM [facility] Bilirubin Total 0.6 0.2 - 1.2 mg/dL 10/17/2021 10:54 AM [facility] Alkaline Phosphatase 93 40 - 150 U/L 10/17/2021 10:54 AM [facility] ALT 9 5 - 55 U/L 10/17/2021 10:54 AM [facility] AST 16 5 - 34 U/L 10/17/2021 10:54 AM [facility] Anion Gap 15 8 - 18 10/17/2021 10:54 AM [facility] BUN/Creatinine Ratio 17 7 - 23 10/17/2021 10:54 AM [facility] Osmolality Calculated 295 270 - 300 mOsm/kg 10/17/2021 10:54 AM [facility] Albumin/Globulin Ratio 1.4 1.1 - 2.3 10/17/2021 10:54 AM [facility] eGFR by CKD-EPI 72(L) >=90 mL/min/1.7 3 m2 10/17/2021 10:54 AM [facility] Blood BLOOD SPECIMEN / Unknown Venipuncture / Unknown 10/17/2021 10:11 AM LIFE ADVISOR 10/17/2021 10:31 AM [facility] Ina Boyer MD LAB - CHEMISTRY OR DERABLES Performing Organization Address City/[facility]/ZIP Co de Phone Number [address] [address], [facility] [phone] * IGM BLOOD (10/17/2021 10:11 AM LIFE ADVISOR) Only the most recent of86 resultswithin the time period is included. IgM 117 37 - 286 mg/dL 10/17/2021 11:01 AM [facility] Blood BLOOD SPECIMEN / Unknown Venipuncture / Unknown 10/17/2021 10:11 AM LIFE ADVISOR 10/17/2021 10:24 AM LIFE ADVIS[facility] Ina Boyer MD LAB - CHEMISTRY OR DERABLES Performing Organization Address [facility] Co de Phone Number [address] [address], [facility] [phone] * (ABNORMAL) IGG BLOOD (10/17/2021 10:11 AM LIFE ADVISOR) Only the most recent of36 resultswithin the time period is included. IgG 703(L) 767-1,590 mg/dL 10/17/2021 11:01 AM [facility] Blood BLOOD SPECIMEN / Unknown Venipuncture / Unknown 10/17/2021 10:11 AM LIFE ADVISOR 10/17/2021 10:24 AM LIFE ADVISOR Ina Boyer MD LAB - CHEMISTRY OR DERABLES [address] [address], [facility] [phone] * CA CHMSRG MOHS MG TQ H/N/H/F/G 1ST STAG 5 BLOC (10/09/2021 8:32 PM LIFE ADVISOR) Rashard Pickering MD - 10/09/2021 8:32 PM LIFE ADVISOR Rashard Mejia MD 10/09/2021 8:36 PM Mohs Micrographic Surgery Operative Note Procedure: Mohs micrographic surgery Date of service: 10/03/2021 Location: left dorsal hand Preop diagnosis: Squamous cell carcinoma, well differentiated Postop diagnosis: Same Mohs AUC score: 8 Number of stages: 1 Preop size: 1.1x0.8 cm Postop size: 1.6x1.4 cm Depth of final defect: adipose Previous dermpath accession #: [id number] Repair type: purse string Mohs accession #: [...] eyelids, eyebrows, nose, lips, chin, ear, periauricular, voodoo, genitalia, hands, feet, ankles, nail units and [...] confirmed by the patient. All components of Rhodelia Protocol/PAUSE Rule completed. STAGE I: The patient [...] obscuring possible tumor presence: Not Present [facility] CLIA # [id number] Mohs technical laboratory asst: Joanna Irby MD REPAIR: Purse string (intermediate) Primary Surgeon: Rashard Mejia MD Buckle Frame Shaper: Dax Repair Size: 1.6 cm Sutures: 4-0 [...] stage of this reconstruction. Rashard Mejia MD Lab Head Rashard Mejia MD PROCEDURE/MINOR SURG ICAL ORDERABLES * CA CHMSRG MOHS MG TQ H/N/H/F/G EA ADDL STAG, CA CHMSRG MOHS MG TQ H/N/H/F/G 1ST STAG [...] final defect: cartilage Previous dermpath accession #: [id number] Repair type: second intent Mohs accession #: [...] eyelids, eyebrows, nose, lips, chin, ear, periauricular, voodoo, genitalia, hands, feet, ankles, nail units and [...] confirmed by the patient. All components of Rhodelia Protocol/PAUSE Rule completed. STAGE I: The patient [...] sections examined. No additional histologic findings appreciated. [facility] CLIA # [id number] Mohs Waterproofing Mixer: Joanna Irby MD REPAIR: Secondary Intention with cartilage fenestration The patient is status-post Mohs micrographic surgery. The surgical site was examined with attention to normal anatomic and functional relationships. After consideration and discussion of multiple options with the patient, it was determined that healing by secondary intention would offer the best chance for preservation/christian of all normal anatomic and functional relationships. [...] Scanned Document CARDIAC SERVICES ORD ERABLES * CA TANGNTL BX SKIN EA SEP ADDL, CA TANGNTL BX SKIN SINGLE LES (08/26/2021 4:41 [...] a patient labeled container and sent to [facility]. Patient agrees to phone call for results and message if not available. Bruce Valle MD Rosie Quigley MD PROCEDURE/MINOR SURG ICAL ORDERABLES * CA DESTROY PREMALIG LESION, 2-14, CA DESTROY PREMALIG LESION, 1ST LESION (08/26/2021 4:41 PM CDT) Narrative Rosie Quigley MD - 08/26/2021 4:41 PM CDT Bruce Valle MD 08/26/2021 4:41 PM Diagnosis and treatment options discussed. Cryotherapy (Liquid Nitrogen) to 5 lesions for 4-6 seconds each. Number of cycles: 1. Wound care reviewed. Bruce Valle MD [facility] Dermatology Resident PGY4 Rosie Quigley MD PROCEDURE/MINOR SURG ICAL ORDERABLES * ECHO STRESS W DOBUTAMINE (08/07/2021 11:50 AM CDT) Anatomical Region Laterality Modality Chest Echo 08/07/2021 10:0 2 AM CDT Narrative Procedure Note Danita Joseph MD - 08/07/2021 Clifford Nolan MD ECHOCARDIOGRAPHY RAD IANT * PFT OXYGEN DESATURATION STUDY (03/05/2021 11:23 AM CDT) Impressions Abel Hatfield MD - 03/05/2021 11:23 AM CDT [facility] DEPARTMENT OF PULMONARY, CRITICAL CARE, AND SLEEP [...] of Pulmonary, Critical Care and Sleep Medicine [facility] [employer] Pager: [phone] I have reviewed the test data and [...] Hatfield MD - 03/05/2021 11:23 AM CDT [facility] DEPARTMENT OF PULMONARY, CRITICAL CARE, AND [...] Sleep Medicine [facility] Pager: [phone] I have reviewed the test data and agree with Dr. Jasmine's findings. Abel Hatfield MD 03/10/2021 Narrative Abel Hatfield MD - 03/05/2021 11:23 AM CDT Molly Jasmine MD 03/05/2021 5:18 PM pulm Procedure Note Molly Jasmine MD - 03/05/2021 11:23 AM CDT Images from the original note were not included. pulm Jamie Arboleda MD PFT ORDERABLES * VITAMIN D 25-HYDROXY (10/19/2020 10:52 AM LIFE ADVISOR) Only the most recent of10 resultswithin the time period is included. Vitamin D, 25 Hydroxy 46.0 See comment: ng/mL 10/19/2020 11:[address] [facility] Comment: The recommendations for 25-Hydroxy Vitamin D [...] Unknown Venipuncture / Unknown 10/19/2020 10:52 AM LIFE ADVISOR 10/19/2020 11:01 AM LIFE ADVISOR Leona Tay PROGRAM DIRECTOR-TRICHOLOGIST LAB - CHEMIS TRY ORDERABLES [address] [address], [facility] [phone] * CYTOMEGALOVIRUS (CMV) QUANTITATIVE PLASMA (07/23/2020 10:57 AM CDT) Only the most recent of10 resultswithin the time period is included. [facility] CMV Quant by PCR, Interp Not Detected Not Detected 07/25/2020 5:12 PM CDT [facility] Blood BLOOD SPECIMEN / Unknown Lab Venipuncture / Unknown 07/23/2020 10:57 AM CDT 07/23/2020 11:33 AM CDT Narrative [facility] - 07/25/2020 5:12 PM CDT [...] Boyer MD LAB - CHEMISTRY OR DERABLES [facility] [address] [facility] [place] [address], [facility] [phone] * ENDOSCOPY, COLON, SCREENING (07/20/2020 9:08 AM CDT) Report Endoscopy POC _ Patient Name: Xavier Sosa Procedure Date: 07/20/2020 9:08 AM Date of : 1950 Admit Type: Outpatient Age: 69 Gender: Male Ethnicity: Not or Race: White Attending MD: Irene Rojas MD _ Procedure: Colonoscopy Indications: High risk colon cancer surveillance: Personal history of rectal cancer Providers: Irene Rojas MD (Doctor), Yandy Etienne, Barrel Plater Referring MD: Billy Jalloh (Referring MD) Complications: No immediate complications. _ Procedure: Pre-Anesthesia Assessment: - Using IV propofol under the supervision of a RN MEDICATION was determined to be medically necessary for [...] 3 months. Procedure Code(s): --- Professional --- 56036, Colonoscopy, flexible; diagnostic, including collection of specimen(s) by brushing or washing, when performed (separate procedure) --- Technical --- 57345, Colonoscopy, flexible; diagnostic, including collection of specimen(s) by brushing or washing, when performed (separate procedure) Diagnosis Code(s): --- Professional --- Z85.048, Personal history of other malignant neoplasm of rectum, rectosigmoid junction, and anus --- Technical --- Z85.048, Personal history of other malignant neoplasm of rectum, rectosigmoid junction, and anus CPT copyright 2017 [employer]. All rights reserved. The codes documented in this report are preliminary and upon fusing machine operator review may be revised to meet current compliance requirements. Irene Rojas Irene Rojas MD 07/20/2020 9:49:56 AM This report has been signed electronically. Number of Addenda: 0 Note Initiated On: 07/20/2020 9:08 AM [facility] ENDOSCOPY 07/20/2020 9:08 AM CDT Irene Rojas MD GI PROCEDURE ORDER CALEB [facility] ENDOSCOPY * SARS-COV-2 (COVID-19) IN HOUSE (07/17/2020 10:30 AM CDT) COVID-19 PCR Not detected Not detected, Invalid 07/18/2020 10:04 PM CDT [facility] MICROBIOLOGY Microbiology SPECIMEN FROM NASOPHARYNGEAL STRUCTURE / Unknown Collection / Unknown 07/17/2020 10:30 AM CDT 07/18/2020 6:02 AM CDT Narrative [facility]CRO[facility] - 07/18/2020 10:04 PM CDT This Real Time RT-PCR assay was developed and its performance characteristics determined by [facility]. This test has [...] Irene Rojas MD LAB - MICROBIOLOGY ORDERABLES [facility] MICRO[facility] [address] [place] [address], [facility] [phone] * CA REPR CMPL WND LID,NOS,EAR 2.5-7.5, [place] CHMSRG MOHS MG TQ H/N/H/F/G 1ST STAG [...] Size: 2.0x0.9 cm. PostOp Size: 2.0x1.1 cm. [facility] Level of Defect: fat Procedure: The patient [...] The excised tissue was transported to the [facility] histology laboratory maintaining the tissue orientation. The [...] Reconstruction: Complex Closure Primary Surgeon : Jackie Buckle Frame Shaper Surgeon : Dax The patient was taken [...] report. I entered the information in our [place] DocFlowsheet with the information provided by Dr. [...] Straw, Yellow, Colorless 02/09/2020 2:[address] [facility] Clarity UA Clear Clear, Slt Cloudy 02/09/2020 2:[address] [facility] Specific Mobile UA 1.008 1.005 - 1.030 02/09/2020 2:52 PM CDT [facility] pH UA 6.0 5.0 - 8.0 pH 02/09/2020 2:[address] [facility] Protein UA Negative Negative mg/dL 02/09/2020 2:52 PM CDT [facility] Glucose UA Negative Negative mg/dL 02/09/2020 2:52 PM T [facility] Ketone UA Negative Negative mg/dL 02/09/2020 2:[address] [facility] Bilirubin UA Negative Negative mg/dL 02/09/2020 2:52 PM CDT [facility] Blood UA Negative Negative 02/09/2020 2:52 PM T [facility] Nitrite UA Negative Negative 02/09/2020 2:52 PM T [facility] Leukocyte Esterase Negative Negative 02/09/2020 2:52 PM T [facility] Urobilinogen UA Negative Negative mg/dL 02/09/2020 2:52 PM T [facility] RBC UA 0-2 None Seen, 0-2, 3-5 /HPF 02/09/2020 2:52 PM T [facility] WBC UA 0-5 None Seen, 0-5 /HPF 02/09/2020 2:52 PM [facility] Squamous Epithelial Cells UA None Seen None Seen, 0-2 /HPF 02/09/2020 2:52 PM T [facility] Urine URINE SPECIMEN OBTAINED BY CLEAN CATCH PROCEDURE / Unknown Collection / Unknown 02/09/2020 1:16 PM CDT 02/09/2020 2:34 PM CDT Narrative [facility] - 02/09/2020 2:52 PM CDT Leona Tay PROGRAM DIRECTOR-TRICHOLOGIST LAB - URINAL YSIS ORDERABLES [address] [phone] * CA DESTR MALIG TRUNK,EXTREM 1.1-2 CM (01/02/2020 3:11 PM LIFE ADVISOR) Narrative Rosie Quigley MD - 01/02/2020 3:11 PM LIFE ADVISOR Bruce Valle MD 01/02/2020 3:52 PM PROCEDURE: [...] Dr. Quigley SURGEON: Bruce Valle MD DIAGNOSIS: [facility] LOCATION: upper back SIZE OF LESION [...] tolerated the procedure well. Bruce Valle MD [facility] Dermatology Resident PGY-II Rosie Quigley MD PROCEDURE/MINOR SURG ICAL ORDERABLES * COMPLETE PFT W/WO BRONCHODILATOR (11/03/2019 12:23 PM LIFE ADVISOR) Impressions Jeffery Vega MD - 11/03/2019 12:23 PM LIFE ADVISOR [facility] DEPARTMENT OF PULMONARY, CRITICAL CARE, AND [...] Sleep Medicine [facility] Pager: [phone] I have personally reviewed the pulmonary function test data and made adjustment to the interpretation where necessary. Jeffery Vega MD 11/08/2019 Narrative Jeffery Vega MD - 11/03/2019 12:23 PM LIFE ADVISOR Susanne Sharma MD 11/04/2019 5:57 PM Procedure Note Susanne Sharma MD - 11/03/2019 12:23 PM CST Images from the original note were not included. Jamie Arboleda MD RESPIRATORY THERAPY ORDERABLES * CA TANGNTL BX SKIN EA SEP ADDL, CA TANGNTL BX SKIN SINGLE LES (09/19/2019 4:29 [...] and message if not available. Mike Hackett [facility] Dermatology Resident PGY-3 Rosie Quigley MD PROCEDURE/MINOR SURG ICAL ORDERABLES * CA DESTROY PREMALIG LESION, 2-14, CA DESTROY PREMALIG LESION, 1ST LESION (09/19/2019 4:29 PM CDT) Narrative Rosie Quigley MD - 09/19/2019 4:29 PM CDT Mike Hackett MD 09/19/2019 4:29 PM Diagnosis and treatment options discussed for AKs. Verbal consent obtained. Cryotherapy (Liquid Nitrogen) performed to 5 lesions on cheeks and nose for 6-7 seconds each. Number of cycles: 1. Wound care reviewed and post-cryotherapy handout given. Mike Hackett MD [facility] Dermatology Resident, PGY-3 Rosie Quigley MD PROCEDURE/MINOR SURG ICAL ORDERABLES * CULTURE WOUND+GRAM STAIN (07/06/2019 3:43 PM CDT) [facility] Culture Rare normal skin susy TANIYA 07/09/2019 11:59 AM CDT [facility] MICROBIOLOG[facility] Gram Stain No organisms seen 019 11:59 AM CDT [facility]CRO[facility] Gram Stain Moderate Polymorphonuclear cells 07/09/2019 11:59 AM CDT [facility] MICRO[facility]OLOG[facility] Microbiology SPECIMEN OBTAINED BY INCISIONAL BIOPSY / Unknown Collection / Unknown 07/06/2019 3:43 PM CDT 07/06/2019 3:49 PM CDT Jessica Martinez MD LAB - MICROBIOLOGY ORDERABLES Performing Organization Address City/[facility]/ZIP Co de Phone Number [facility]CRO[facility] [address] [phone] * PATHOLOGY/CYTOLOGY REPORT ORDER (06/20/2019 3:52 PM CDT) Narrative 06/20/2019 3:52 PM CDT Ordered by an unspecified provider. Scanned Document LAB - PATHOLOGY/CYTO LOGY ORDERABLES * PHOSPHORUS BLOOD (06/15/2019 6:20 AM CDT) Only the most recent of40 resultswithin the time period is included. [facility] Phosphorus 3.9 2.3 - 4.7 mg/dL 06/15/2019 7:[address] [facility] Blood BLOOD SPECIMEN / Unknown 06/15/2019 6:20 AM CDT 06/15/2019 6:28 AM CDT Elda Fleming MD LAB - CHEMISTRY KIT CASTELLON [facility] [address] [place] [address], [facility] [phone] * MAGNESIUM BLOOD (06/15/2019 6:20 AM CDT) Only the most recent of44 resultswithin the time period is included. [facility] Magnesium 2.0 1.6 - 2.6 mg/dL 06/15/2019 7:01 AM CDT [facility] Blood BLOOD SPECIMEN / Unknown 06/15/2019 6:20 AM CDT 06/15/2019 6:28 AM CDT Elda Fleming MD LAB - CHEMISTRY KIT CASTELLON Performing Organization Address [facility]/ZIP Co de Phone Number [address] [phone] * CREATININE BODY FLUID ([facility] ONLY) (06/13/2019 9:09 AM CDT) [facility] Creatinine Fluid 1.0 Not Established For Fluids mg/dL 06/13/2019 9:51 AM CDT [facility] Comment: The reference range and other method performance specifications have not been established for this fluid. The test result must be integrated into the clinical context for interpretation. Fluid PERITONEAL FLUID / Unknown Collection / Unknown 06/13/2019 9:09 AM CDT 06/13/2019 9:15 AM CDT Andrea Jason MD LAB - BODY FLUID PRAMOD RODRIGUEZ Performing Organization Address [facility] Co de Phone Number [address] [phone] * TYPE + SCREEN PANEL (06/13/2019 12:44 AM CDT) Only the most recent of8 resultswithin the time period is included. [facility] Antibody Screen NEG 9 1:[address] [facility] LAB ABO Rh O POS 06/13/2019 1:[address] [facility] LAB Blood Bank BLOOD SPECIMEN / Unknown Venipuncture / Unknown 06/13/2019 12:44 AM CDT 06/13/2019 1:05 AM CDT Jose Coyle DO LAB - BLOOD BANK ORD ERABLES Performing Organization Address City/[facility]/ZIP Co de Phone Number [facility] LAB [address] [place] [address] * GLUCOSE - POINT OF CARE (06/12/2019 8:20 AM CDT) Only the most recent of6 resultswithin the time period is included. Pathologist [facility] Glucose WB/POC 88 70 - 115 mg/dL 06/12/2019 8:27 AM CDT [facility] Specimen Type Arterial/C apillary 06/12/2019 8:27 AM CDT [facility] Blood BLOOD SPECIMEN / Unknown 06/12/2019 8:20 AM CDT 06/12/2019 8:27 AM CDT Narrative [facility] - 06/12/2019 8:27 AM CDT NURSING CLERK: CHANTAL REYNOSO Irene Rojas MD LAB - POINT OF CAR E ORDERABLES [facility] [address] [phone] * TRANSFUSE RED BLOOD CELL LEUKOREDUCED UNIT(S) (06/11/2019 3:03 PM CDT) Jose Coyle DO NURSING - BLOOD PROD TRANSFUSION * (ABNORMAL) BLOOD GASES ART COMPLETE [facility] OR (06/10/2019 9:51 PM CDT) Only the most recent of5 resultswithin the time period is included. Pathologist [facility] pH Arterial 7.34(L) 7.35 - 7.45 06/10/2019 9:56 PM [facility] pCO2 Arterial 47(H) 35 - 45 mmHg 06/10/2019 9:56 PM [facility] pO2 Arterial 110(H) 71 - 95 mmHg 06/10/2019 9:56 PM [facility] HCO3 Arterial 25.0 22.0 - 26.0 mmol/L 06/10/2019 9:56 PM [facility] TCO2 Arterial 26.4 25.0 - 29.0 mmol/L 06/10/2019 9:56 PM [facility] Base Excess Arterial -0.9 -2.0 - 2.0 mmol/L 06/10/2019 9:56 PM T [facility] Hemoglobin Arterial 8.7(L) 13.5 - 17.5 g/dL 06/10/2019 9:56 PM [facility] Oxyhemoglobin Arterial 95.8 95.0 - 100.0 % 06/10/2019 9:56 PM [facility] Carboxyhemoglobin 0.2 0.0 - 3.0 % 06/10/2019 9:56 PM [facility] Methemoglobin 0.3 0.0 - 2.0 % 06/10/2019 9:56 PM [facility] FI O2 Arterial 29.0 % 06/10/2019 9:56 PM [facility] Ionized Calcium Whole Blood 1.31 mmol/L 06/10/2019 9:56 PM [facility] Adjusted Ionized Calcium 1.28 1.19 - 1.34 mmol/L 06/10/2019 9:56 PM [facility] Sodium Whole Blood 135 135 - 145 mmol/L 06/10/2019 9:56 PM [facility] Potassium Whole Blood 5.1 3.5 - 5.5 mmol/L 06/10/2019 9:56 PM [facility] Chloride Whole Blood 105 101 - 111 mmol/L 06/10/2019 9:56 PM [facility] Glucose Whole Blood 225(H) 70 - 110 mg/dL 06/10/2019 9:56 PM [facility] Lactic Acid Whole Blood 2.1 0.5 - 3.4 mmol/L 06/10/2019 9:56 PM [facility] Blood ARTERIAL BLOOD SPECIMEN / Unknown Venipuncture / Unknown 06/10/2019 9:51 PM CDT 06/10/2019 9:54 PM CDT Bryson Cuellar MD LAB - BLOOD GASES OR DERABLES [facility] [address] [place] [address] * XR CHEST 1VW PORTABLE (06/10/2019 6:34 [...] 7.35 - 7.45 06/10/2019 11:[address] [facility] pCO2 Arterial 44 35 - 45 mmHg 06/10/2019 11:[address] [facility] pO2 Arterial 234(H) 71 - 95 mmHg 06/10/2019 11:01 AM [facility] HCO3 Arterial 21.5(L) 22.0 - 26.0 mmol/L 06/10/2019 11:01 AM [facility] TCO2 Arterial 22.8(L) 25.0 - 29.0 mmol/L 06/10/2019 11:01 AM [facility] Base Excess Arterial -4.7(L) -2.0 - 2.0 mmol/L 06/10/2019 11:01 AM [facility] Hemoglobin Arterial 10.4(L) 13.5 - 17.5 g/dL 06/10/2019 11:01 AM [facility] Oxyhemoglobin Arterial 97.8 95.0 - 100.0 % 06/10/2019 11:01 AM [facility] Carboxyhemoglobin 0.2 0.0 - 3.0 % 06/10/2019 11:01 AM [facility] Methemoglobin 0.2 0.0 - 2.0 % 06/10/2019 11:01 AM [facility] FI O2 Arterial 50.0 % 06/10/2019 11:01 AM [facility] Blood, arterial ARTERIAL BLOOD SPECIMEN / Unknown Arterial Puncture / Unknown 06/10/2019 10:59 AM CDT 06/10/2019 10:59 AM CDT Allyson Ricks MD LAB - BLOOD GASES OR DERABLES [address] [phone] * PREPARE (CROSSMATCH) RBC UNIT(S), 1 Units (06/10/2019 6:24 AM CDT) Only the most recent of3 resultswithin the time period is included. Unit Description N/A [facility] BLOOD BANK LAB Blood Bank BLOOD SPECIMEN / Unknown 06/10/2019 6:24 AM CDT 06/10/2019 6:24 AM CDT Jose Coyle DO LAB - BLOOD BANK ORD ERABLES [facility] BLOOD BANK LAB [address] [place] [address] * ENDOSCOPY, PROCTOSIGMOID (05/20/2019 8:00 AM CDT) [...] entire procedure. Procedure Code(s): --- Professional --- 13610, Sigmoidoscopy, flexible; diagnostic, including collection of specimen(s) by brushing or washing, when performed (separate procedure) Diagnosis Code(s): --- Professional --- Z85.048, Personal history of other malignant neoplasm of rectum, rectosigmoid junction, and anus CPT copyright 2016 [employer]. All rights reserved. The codes documented in this report are preliminary and upon fusing machine operator review may be revised to meet current compliance requirements. _ Irene Rojas, 05/20/2019 8:22:36 AM Note Initiated On: 05/20/2019 8:00 AM Number of Addenda: 0 [facility] [address] [facility] [place] [address] [facility] PROVATION 05/20/2019 8:00 AM CDT Andrea Jasno MD GI PROCEDURE ORDERAB LES [facility] PROVATION * MRI PELVIS WWO CONTRAST (05/14/2019 [...] lymphadenopathy. Report dictated by Austin Renteria MD (radiology tech). I, Dr. ANGEL RICKS M.D. have personally reviewed and interpreted this examination/study. This report was electronically signed by ANEGL RICKS M.D. on 05/16/2019 2:12 PM . [...] lymphadenopathy. Report dictated by Austin Renteria MD (radiology tech). I, Dr. ANGEL RICKS M.D. have personally reviewed and interpreted this examination/study. This report was electronically signed by ANGEL RICKS M.D. on05/16/2019 2:12 PM . Irene Rojas MD MR ORDERABLES * CREATININE BLOOD - POCT (IP) [facility] (05/14/2019 8:44 AM CDT) Only the most recent of4 resultswithin the time period is included. Creatinine POCT 0.69 0.3 - 1.3 mg/dL [facility] POCT TESTING eGFR POCT 60 60 ml/min [facility] POCT TESTING Blood BLOOD SPECIMEN / Unknown 05/14/2019 8:44 AM CDT Irene Rojas MD LAB - POINT OF CAR E ORDERABLES [facility] POCT TESTING [facility] [phone] * COMPLETE PFT W/WO BRONCHODILATOR (05/12/2019 10:46 AM CDT) Impressions Jeffery Vega MD - 05/12/2019 10:46 AM CDT [facility] DEPARTMENT OF PULMONARY, CRITICAL CARE, AND [...] Sharma MD [facility] Pager: [phone] I have personally reviewed the pulmonary function [...] PET CT WHOLE BODY (01/18/2019 1:12 PM LIFE ADVISOR) Anatomical Region Laterality Modality Positron Emissio n Tomography (PET) 01/18/2019 1:10 PM LIFE ADVISOR Impressions 01/18/2019 1:56 PM LIFE ADVISOR IMPRESSION: 1. Diffuse wall thickening involving the rectum with extension into the rectosigmoid colon demonstrating increased FDG avidity with SUV max of 14.1, consistent with primary colonic malignancy. Mild perirectal fat stranding without abdominal or pelvic lymphadenopathy. 2. No metastatic disease to the chest. Dictated by Jyoti Dumont M.D.( radiology tech) This report was approved by Jyoti Dumont M.D. on 01/18/2019 1:36 PM . IDr. ADIA D.O. have personally reviewed and interpreted this examination/study. This report was electronically signed by ADIA MARTE D.O. on 01/18/2019 1:56 PM . Narrative 01/18/2019 1:56 PM LIFE ADVISOR Procedure: PET/CT Study. Referring Physician: INA BOYER [...] the chest. Dictated by Jyoti Dumont M.D.( radiology tech) This report was approved by Jyoti Dumont M.D. on 01/18/2019 1:36 PM. I, Dr. ADIA MARTE D.O. have personally reviewed and interpreted this examination/study. This report was electronically signed by ADIA MARTE D.O. on01/18/2019 1:56 PM . Ina Boyer MD NM ORDERABLES * GLUCOSE SCREEN - POCT (IP) [facility] (01/18/2019 11:33 AM LIFE ADVISOR) Glucose WB/POC 91 70 - 115 mg/dL [facility] POCT TESTING Blood BLOOD SPECIMEN / Unknown 01/18/2019 11:33 AM LIFE ADVISOR Ina Boyer MD LAB - POINT OF CAR E ORDERABLES [facility] POCT TESTING [address] [phone] * CA DSTRJ ALL PRMLG 15 OR MORE (01/18/2019 10:18 AM LIFE ADVISOR) Narrative Rosie Quigley MD - 01/18/2019 10:18 AM LIFE ADVISOR Shavon Dickson MD 01/17/2019 2:04 PM Diagnosis and treatment options discussed for AKs. Verbal consent obtained. Cryotherapy (Liquid Nitrogen) performed to 17 lesions on R helix x 3, R voodoo x 1, L cheek x 3, L neck x 5, R FA x 1 (more hypertrophic), R dorsal hand x 2, L dorsal hand x 2 for 6-7 seconds each. Number of cycles: 1. Wound care reviewed and post-cryotherapy handout given. Shavon Dickson MD [facility] Dermatology Resident, PGY-4 Rosie Quigley MD PROCEDURE/MINOR SURG ICAL ORDERABLES * (ABNORMAL) CYTOMEGALOVIRUS DNA RT-PCR QUANT (01/13/2019 10:03 AM LIFE ADVISOR) Only the most recent of39 resultswithin the time period is included. CMV Quant By PCR, Blood 315(H) Not Detected IU/mL 01/14/2019 2:10 PM LIFE ADVISOR [facility] PATHOLOGY LAB CMV Quant by PCR, Interp Detected( A) Not Detected 01/14/2019 2:10 PM LIFE ADVISOR [facility] PATHOLOGY LAB Microbiology BLOOD SPECIMEN / Unknown Collection / Unknown 01/13/2019 10:03 AM LIFE ADVISOR 01/13/2019 10:36 AM LIFE ADVISOR Narrative [facility] PATHOLOGY [facility] - 01/14/2019 2:10 PM LIFE ADVISOR The CMV DNA analysis utilized real-time PCR, [...] LAB - MICROBIOLOGY ORDERABLES Performing Organization Address City/[facility]/ZIP Co de Phone Number [facility] PATHOLOGY LAB [address] [phone] * CEA BLOOD (01/13/2019 10:03 AM LIFE ADVISOR) CEA 3.630 <5.000 ng/mL 01/13/2019 11:11 AM LIFE ADVISOR [facility] Comment: CEA values will vary depending on testing procedure used. Results are not comparable across different methods. CEA values obtained in [facility] Laboratory using a Tyler Adelso Immunoassay. Blood BLOOD SPECIMEN / Unknown Lab Venipuncture / Unknown 01/13/2019 10:03 AM LIFE ADVISOR 01/13/2019 10:36 AM LIFE ADVISOR Ina Boyer MD LAB - CHEMISTRY OR DERABLES Performing Organization Address [facility]/ZIP Co de Phone Number [facility] [address] [place] [address], [facility] [phone] * (ABNORMAL) CYTOMEGALOVIRUS QUAL PCR (11/04/2018 9:40 AM LIFE ADVISOR) Only the most recent of2 resultswithin the time period is included. Pathologist [facility] Cytomegalovirus Source Blood 11/08/2018 4:20 AM LIFE ADVISOR [facility] ([facility]) Cytomegalovirus PCR Detected( A) 11/08/2018 4:20 AM LIFE ADVISOR [facility] [employer] ([facility]) Comment: INTERPRETIVE INFORMATION: Cytomegalovirus Detection by PCR Test developed and characteristics determined by [employer]. See Compliance Statement A: [employer]/ Performed by [employer], [address] [place] [address] [email or web address], Jhony Leone MD, Lab. Director Blood BLOOD SPECIMEN / Unknown Venipuncture / Unknown 11/04/2018 9:40 AM LIFE ADVISOR 11/04/2018 9:52 AM LIFE ADVISOR Leona Sina Tay PROGRAM DIRECTOR-TRICHOLOGIST LAB - BODY F LUID ORDERABLES Performing Organization Address City/State/[facility] Co de Phone Number [facility] ([facility]) [address] * HEPATITIS B SURFACE ANTIBODY QUANT (08/12/2018 9:55 AM CDT) Pathologist [facility] Hepatitis B Virus Surface Antibody 274.63 IU/L 08/14/2018 9:06 AM CDT [facility] ([facility]) Comment: The anti-HBs is greater than or [...] Cellular and Tissue-Based Products (HCT/P). Performed by [employer], [address] [place] [address] [email or web address], Jhony Leone MD, Lab. Director Blood BLOOD SPECIMEN / Unknown Venipuncture / Unknown 08/12/2018 9:55 AM CDT 08/12/2018 10:14 AM CDT Ina Boyer MD LAB - SEROLOGY ORD ERABLES Performing Organization Address City/[facility]/ZIP Co de Phone Number [facility]) [address] [place] [address] * VARICELLA ZOSTER ANTIBODY IGG (08/12/2018 9:54 AM CDT) Only the most recent of2 resultswithin the time period is included. Varicella zoster Virus Antibody IgG 1068 Immune >165 index 08/13/2018 5:11 PM CDT [facility] ([facility]) Comment: Negative <135 Equivocal 135 - 165 Positive >165 A positive result generally indicates exposure to the pathogen or administration of specific immunoglobulins, but it is not indication of active infection or stage of disease. Blood BLOOD SPECIMEN / Unknown Venipuncture / Unknown 08/12/2018 9:54 AM CDT 08/12/2018 10:14 AM CDT Narrative [facility] ([facility]) - 08/13/2018 5:11 PM CDT Performed at: [address] [place] [address] [address] [place], [place] [id number] Manager Military: Maycol Coronado PhD, Phone: [phone] Ina Boyer MD LAB - CHEMISTRY OR DERABLES [facility] ([facility]) [address] [place] [address], [facility] * CA DSTRJ ALL PRMLG 15 OR MORE (07/05/2018 3:49 PM CDT) Narrative Rosie Quigley MD - 07/05/2018 3:49 PM CDT Afshin Cueto MD 07/05/2018 11:29 AM Diagnosis and treatment options discussed. Cryotherapy (Liquid Nitrogen) to 15 lesions for 5-7 seconds each. Number of cycles: 1. Wound care reviewed. Right medial cheek x2, left voodoo x2, left zygoma, left lower cheek, left jawline x2, left FH, left antihelix, right helical rim, right nasal sidewall, right neck, right dorsal hand, right forearm Afshin Cueto U Dermatology Resident PGY-4 Rosie Quigley MD PROCEDURE/MINOR SURG ICAL ORDERABLES * HIGH ALTITUDE SIMULATION TEST (HAST) STUDY (06/28/2018) Impressions Jeffery Vega MD - 06/28/2018 [facility] DEPARTMENT OF PULMONARY, CRITICAL CARE, AND [...] of Pulmonary, Critical Care, & Sleep Medicine [facility] [facility] [employer] [facility] [employer] I have personally reviewed the pulmonary function test data and made adjustment to the interpretation where necessary. Jeffery Vega MD 07/11/2018 Jamie Arboleda MD PFT ORDERABLES * PFT OXYGEN DESATURATION STUDY (06/28/2018) ImpressionJeffery Hylton MD - 06/28/2018 [facility] Department of Pulmonary, Critical Care, and Sleep [...] of Pulmonary, Critical Care, & Sleep Medicine [facility] 06/28/2018 , 3:48 PM I [...] to resolution. Dictated by Terell Ricks MD (radiology tech). I, Dr. DANIELA ASCENCIO M.D. have personally [...] to resolution. Dictated by Terell Ricks MD (radiology tech). I, Dr. DANIELA ASCENCIO M.D. have personally reviewed and interpretedthis examination/study. This report was electronically signed by DANIELA ASCENCIO M.D. on 06/28/2018 2:44 PM . Sly Diaz MD CT ORDERABLES * MPO/CA 3 AUTOANTIBODIES PANEL (06/03/2018 6:25 AM CDT) Pathologist [facility] Anti-myeloperox idase (MPO) Antibody <9.0 0.0 - 9.0 U/mL 06/07/2018 5:10 PM CDT [facility] ([facility]) Anti-proteinase 3 (CA-3) Abs <3.5 0.0 - 3.5 U/mL 06/07/2018 5:10 PM CDT [facility] ([facility]) Blood BLOOD SPECIMEN / Unknown Venipuncture / Unknown 06/03/2018 6:25 AM CDT 06/03/2018 7:57 AM CDT Narrative [facility] ([facility]) - 06/07/2018 5:10 PM CDT Performed at: [facility] Lab[address] [id number] Manager Military: Eugene Boswell MD, Phone: [phone] Sly Diaz MD LAB - CHEMISTRY ORDAmos CASTELLON [facility] ([facility]) [address] [place] [address] * CRYPTOCOCCUS ANTIGEN BLOOD (06/03/2018 6:25 AM CDT) Pathologist [facility] Cryptococcus Antigen Negative Negative 06/03/2018 2:06 PM CDT [facility] MICROBIOLOGY Blood BLOOD SPECIMEN / Unknown Venipuncture / Unknown 06/03/2018 6:25 AM CDT 06/03/2018 7:58 AM CDT Sly Diaz MD LAB - SEROLOGY ORDER CALEB [facility] MICROBIOLOGY [address] [place], [address] [phone] * ASPERGILLUS GALACTOMANNAN ANTIGEN BLOOD (06/02/2018 7:24 AM CDT) Pathologist [facility] Aspergillus Antigen BAL/Serum 0.12 0.00 - 0.49 Index 06/06/2018 12:07 PM CDT [facility] ([facility]) Blood BLOOD SPECIMEN / Unknown 06/02/2018 7:24 AM CDT 06/02/2018 7:30 AM CDT Narrative [facility] ([facility]) - 06/06/2018 12:07 PM CDT Performed at: 01 - [address] [id number] Manager Military: Eugene Boswell MD, Phone: [phone] Sly Diaz MD LAB - SEROLOGY ORDER CALEB [facility] ([facility]) [address] [place] [phone] * HISTOPLASMA ANTIGEN BLOOD (06/02/2018 7:24 AM CDT) Pathologist [facility] Comment SEE SCANNED REPORT 06/11/2018 10:[address] [facility] REF LAB NON INTERF Blood BLOOD SPECIMEN / Unknown Lab Venipuncture / Unknown 06/02/2018 7:24 AM CDT 06/02/2018 7:30 AM CDT Sly Diaz MD LAB - CHEMISTRY KIT CASTELLON Performing Organization Address City/[facility]/ZIP Co de Phone Number [facility] REF LAB NON INTERF [address] [place] [address] * CYCLIC CITRUL PEPTIDE AB IGG (CCP) (06/02/2018 7:24 AM CDT) Pathologist [facility] CCP Antibody IgG 2.3 <5.0 U/mL 06/02/2018 8:[address] [facility] HOSPITAL Blood BLOOD SPECIMEN / Unknown Lab Venipuncture / Unknown 06/02/2018 7:24 AM CDT 06/02/2018 7:30 AM CDT Sly Diaz MD LAB - CHEMISTRY KIT CASTELLON [facility] H[facility] [address] [place] [address] * (ABNORMAL) SGXX-J-RFGQFS (1,3) (FUNGITELL) (06/02/2018 7:23 AM CDT) [facility] Vgry-o-Aenzfx 468 pg/mL 06/04/2018 7:57 PM CDT [facility] [employer] ([facility]) Interpretation Dtgq-a-Gniyrx Positive (A) Negative 06/04/2018 7:57 PM CDT [facility] ([facility]) Comment: INTERPRETIVE INFORMATION: (1,3)-pewv-H-ersixq (Fungitell) Less than 31 pg/mL ................... Negative 31-59 pg/mL .......................... Negative 60-79 pg/mL .......................... Indeterminate Greater than or equal to 80 pg/mL .... Positive The Fungitell test is indicated for presumptive diagnosis of fungal infection and should be used in conjunction with other diagnostic procedures. This test does not detect certain fungal species such as Cryptococcus, which produce very low levels of (1,3)-gwbl-A-kwzwou. This test will not detect the zygomycetes, such as Absidia, Mucor, and Rhizopus, which are not known to produce (1,3)-ngfg-V-sikkfi. In addition, the yeast phase of Blastomyces dermatitidis produces little (1,3)-qmqg-U-dntkmu and may not be detected by the assay. Performed by [employer], [address] [place] [id number] [email or web address], Jhony Leone MD, Lab. Director Blood BLOOD SPECIMEN / Unknown 06/02/2018 7:23 AM CDT 06/02/2018 7:30 AM CDT Sly Diaz MD LAB - CHEMISTRY KIT CASTELLON [facility] Organization Address City/State/ZIP Co de Phone Number Contact At Once! [facility]) [address] [place] [address], [facility] * QUANTIFERON TB-GOLD INC (06/02/2018 7:23 AM CDT) Only the most recent of2 resultswithin the time period is included. [facility] Signature QuantiFERON TB Gold Negative Negative 06/05/2018 5:07 PM CDT [facility] ([facility]) Comment: The specimen received for QuantiFERON testing was incubated by the ordering institution. Specific procedures outlined in our Directory of Services and in the package insert for the QuantiFERON Gold (In Tube) test must be followed to enable for proper stimulation of cells for the production of interferon gamma. QuantiFERON Criteria Comment 06/05/2018 5:07 PM CDT [facility] ([facility]) Comment: To be considered positive a specimen [...] 0.06 IU/mL 06/05/2018 5:07 PM CDT [facility] ([facility]) QuantiFERON Nil Value 0.05 IU/mL 06/05/2018 5:07 PM CDT [facility] ([facility]) QuantiFERON Mitogen Value >10.00 IU/mL 06/05/2018 5:07 PM CDT [facility] ([facility]) QFT TB Ag Minus Nil Value IU/mL 0.01 IU/mL 06/05/2018 5:07 PM CDT [facility] ([facility]) Interpretation Comment 06/05/2018 5:07 PM CDT [facility] ([facility]) Comment: The QuantiFERON TB Gold (in Tube) [...] CDT 06/02/2018 7:33 AM CDT Narrative [facility] ([facility]) - 06/05/2018 5:07 PM CDT Performed at: [address] [id number] Manager Military: Maycol Coronado PhD, Phone: [phone] Sly Diaz MD LAB - SEROLOGY ORDER CALEB Performing Organization Address City/[facility]/ZIP Co de Phone Number [facility] ([facility]) [address] [place] [phone] * RHEUMATOID FACTOR BLOOD QUANTITATIVE (06/02/2018 7:23 AM CDT) Rheumatoid Factor <15 <30 IU/mL 06/02/2018 7:[address] [facility] Blood BLOOD SPECIMEN / Unknown 06/02/2018 7:23 AM CDT 06/02/2018 7:30 AM CDT Sly Diaz MD LAB - CHEMISTRY KIT CASTELLON Performing Organization Address City/[facility]/ZIP Co de Phone Number [facility]ORATORY [address] [phone] * KIM BLOOD SCREEN W/REFLEX TITER (06/02/2018 7:23 AM CDT) KIM Negative 06/04/2018 4:22 PM CDT [facility] ([facility]) Comment: Negative <1:80 Borderline 1:80 Positive >1:80 Blood BLOOD SPECIMEN / Unknown 06/02/2018 7:23 AM CDT 06/02/2018 7:29 AM CDT Narrative [facility] ([facility]) - 06/04/2018 4:22 PM CDT Performed at: [address] [id number] Manager Military: Maycol Coronado PhD, Phone: [phone] Sly Diaz MD LAB - CHEMISTRY KIT CASTELLON Performing Organization Address City/[facility]/ZIP Co de Phone Number [facility] ([facility]) [address] [place] [phone] * NEUTROPHIL CYTOPLASMIC ANTIBODY IGG (06/02/2018 7:23 AM CDT) ANCA IgG <1:20 <1:20 06/04/2018 12:38 PM CDT [facility] ([facility]) Comment: The ANCA IFA is <1:20; therefore, [...] collagen vascular disease or arthritis. Performed by [employer], [address] [place] [address] [email or web address], Jhony Leone MD, Lab. Director Blood BLOOD SPECIMEN / Unknown 06/02/2018 7:23 AM CDT 06/02/2018 7:30 AM CDT Sly Diaz MD LAB - SEROLOGY ORDER CALEB [facility]) [address] [id number], [facility] * HISTOPLASMA GALACTOMANNAN AG URINE (06/01/2018 7:04 PM CDT) Urine URINE / Unknown Collection / Unknown 06/01/2018 7:04 PM CDT 06/01/2018 7:11 PM CDT Sly Diaz MD LAB - URINE CHEMISTR Y ORDERABLES [facility] REF LAB NON INTERF [address] [place] [address] * CELL COUNT W DIFFERENTIAL FLUID (06/01/2018 1:02 PM CDT) Color Fluid Colorless Colorles s, Straw 06/01/2018 1:[address] [facility] Clarity Fluid Clear Clear 06/01/2018 1:[address] [facility] LABORATORY [facility] Volume Fluid 6.0 mL 06/01/2018 1:37 PM CDT [facility] WBC Calculation Fluid 10 /uL 06/01/2018 1:37 PM [facility] RBC Calculation 298 /uL 8 1:37 PM T [facility] Differential Manual Differential to follow. 06/01/2018 1:37 PM CDT [facility] Fluid BRONCHIOLOALVEOLAR LAVAGE / Unknown Collection / Unknown 06/01/2018 1:02 PM CDT 06/01/2018 1:20 PM CDT Narrative [facility] - 06/01/2018 1:37 PM CDT No established reference range for WBC and RBC body fluid count. Balbina Munoz MD LAB - BODY FLUI D ORDERABLES [address] [phone] * DIFFERENTIAL MANUAL FLUID (06/01/2018 1:02 PM CDT) Only the most recent of2 resultswithin the time period is included. Segs % Fluid 90 % 06/01/2018 2:04 PM CDT [facility] Lymphocytes % Fluid 2 % 06/01/2018 2:04 PM CDT [facility] Monocytes % Fluid 1 % 06/01/2018 2:04 PM CDT [facility] Macrophages % Fluid 7 % 06/01/2018 2:04 PM CDT [facility] Fluid BRONCHIOLOALVEOLAR LAVAGE / Unknown Collection / Unknown 06/01/2018 1:02 PM CDT 06/01/2018 1:20 PM CDT Narrative [facility] - 06/01/2018 2:04 PM CDT Few degenerated cells present. Balbina Munoz MD LAB - BODY FLUI D ORDERABLES [address] [phone] * (ABNORMAL) RESPIRATORY PATHOGEN PANEL BY PCR (06/01/2018 1:01 PM CDT) Only the most recent of5 resultswithin the time period is included. Adenovirus PCR Not detected Not detected, Invalid, Indeterminate 06/01/2018 6:15 PM T [facility] Human Metapneumovirus PCR Not detected Not detected, Invalid, Indeterminate 06/01/2018 6:15 PM [facility] MICROBIOLOG[facility] Human Rhinovirus/Entero virus PCR Detected(A ) Not detected, Invalid, Indeterminate 06/01/2018 6:15 PM T [facility] MICROBIOLOG[facility] Influenza A Non Subtyped PCR Not detected Not detected, Invalid, Indeterminate 06/01/2018 6:15 PM T [facility] MICRO[facility]OLOG[facility] Influenza A H1 PCR Not detected Not detected, Invalid, Indeterminate 06/01/2018 6:15 PM T [facility]CRO[facility] Influenza A H3 PCR Not detected Not detected, Invalid, Indeterminate 06/01/2018 6:15 PM T [facility]CRO[facility] Influenza A H1 2009 PCR Not detected Not detected, Invalid, Indeterminate 06/01/2018 6:15 PM [facility] Influenza B PCR Not detected Not detected, Invalid, Indeterminate 06/01/2018 6:15 PM [facility] Mycoplasma pneumoniae PCR Not detected Not detected, Invalid, Indeterminate 06/01/2018 6:15 PM T [facility] Parainfluenza Virus 1 PCR Not detected Not detected, Invalid, Indeterminate 06/01/2018 6:15 PM T [facility]CRO[facility] Parainfluenza Virus 2 PCR Not detected Not detected, Invalid, Indeterminate 06/01/2018 6:15 PM [facility] Parainfluenza Virus 3 PCR Not detected Not detected, Invalid, Indeterminate 06/01/2018 6:15 PM [facility] Parainfluenza Virus 4 PCR Not detected Not detected, Invalid, Indeterminate 06/01/2018 6:15 PM T [facility] MICROBIOLOG[facility] Respiratory Syncytial Virus PCR Not detected Not detected, Invalid, Indeterminate 06/01/2018 6:15 PM T [facility] Bordetella pertussis PCR Not detected Not detected, Invalid 06/01/2018 6:15 PM [facility] Coronavirus PCR Not detected Not detected, Invalid, Indeterminate 06/01/2018 6:15 PM [facility] [facility] Microbiology BRONCHIOLOALVEOLAR LAVAGE / Unknown Collection / Unknown 06/01/2018 1:01 PM CDT 06/01/2018 2:00 PM CDT Narrative [facility] - 06/01/2018 6:15 PM CDT Contact and Droplet Precautions Required. Coronavirus PCR detects the following coronaviruses: 229E, HKU1, NL63, OC43. Balbina Munoz MD LAB - MICROBIOL OGY ORDERABLES Performing Organization Address [facility] de Phone Number [facility] MICROBIOLOGY [address] [place] [address], [facility] [phone] * (ABNORMAL) CULTURE FUNGUS OTHER+FUNGUS SMEAR (06/01/2018 1:01 PM CDT) Only the most recent of3 resultswithin the time period is included. Culture Rare Georgina albicans(A) TANIYA 06/28/2018 6:20 AM CDT [facility] MICROBIOLOGY Fungus Smear No yeast or hyphae seen 06/28/2018 6:20 AM CDT [facility] Fungus Smear No Pneumocystis jirovecii 06/28/2018 6:20 AM CDT [facility] Microbiology BRONCHIOLOALVEOLAR LAVAGE / Unknown Collection / Unknown 06/01/2018 1:01 PM CDT 06/01/2018 1:18 PM CDT Balbina Munoz MD LAB - MICROBIOL OGY ORDERABLES Performing Organization Address [facility] de Phone Number [facility] MICROBIOLOGY [address] [place] [address], [facility] [phone] * CULTURE BRONCHOALVEOLAR LAVAGE QNT+GRAM STAIN (06/01/2018 1:01 PM CDT) Culture No growth TANIYA 06/03/2018 7:24 AM CDT [facility] Gram Stain Light White blood cells 06/03/2018 7:24 AM CDT [facility] Gram Stain No organisms seen 06/03/2018 7:24 AM CDT [facility] MICRO[facility] Microbiology BRONCHIOLOALVEOLAR LAVAGE / Unknown Collection / Unknown 06/01/2018 1:01 PM CDT 06/01/2018 1:18 PM CDT Balbina Munoz MD LAB - MICROBIOL OGY ORDERABLES Performing Organization Address City/[facility] Co de Phone Number [facility] MICROBIOLOGY [address] [place] [address], [facility] [phone] * CULTURE AFB+SMEAR (06/01/2018 1:01 PM CDT) Only the most recent of3 resultswithin the time period is included. Culture No acid-fast bacillus isolated 07/12/2018 9:35 AM CDT [facility] MICROBIOLOGY AFB Smear No acid-fast bacilli seen 07/12/2018 9:35 AM CDT [facility] MICROBIOLOGY Microbiology BRONCHIOLOALVEOLAR LAVAGE / Unknown Collection / Unknown 06/01/2018 1:01 PM CDT 06/01/2018 1:18 PM CDT Balbina Munoz MD LAB - MICROBIOL OGY ORDERABLES Performing Organization Address [facility] de Phone Number [facility] MICROBIOLOGY [address] [place] [address], [facility] [phone] * CULTURE LEGIONELLA (06/01/2018 1:01 PM CDT) Only the most recent of3 resultswithin the time period is included. Culture Negative for Legionella TANIYA 06/08/2018 8:33 AM CDT [facility] MICROBIOLOGY Microbiology BRONCHIOLOALVEOLAR LAVAGE / Unknown Collection / Unknown 06/01/2018 1:01 PM CDT 06/01/2018 1:19 PM CDT Balbina Munoz MD LAB - MICROBIOL OGY ORDERABLES Performing Organization Address [facility] Co de Phone Number [facility] MICROBIOLOGY [address] [place] [address], [facility] [phone] * CYTOLOGY NON-SHUTTLE CAR OPERATOR PANEL (STL) (06/01/2018 12:37 PM CDT) Only the most recent of2 resultswithin the time period is included. Case Report Medical Cytology Report Case: [id number] Authorizing Provider: Balbina Munoz MD Collected: 06/01/2018 12:37 PM Ordering Location: [facility] Received: 06/01/2018 02:26 PM Pathologist: Joe Joshi MD Specimen: Bronchial Washings, wash 06/04/2018 2:09 PM CDT [facility] Specimen Adequacy Adequate cellularity for evaluation. 06/04/2018 2:09 PM CDT [facility] Final Diagnosis Bronchial Washing - Negative for malignancy - Acute inflammation 06/04/2018 2:09 PM T [facility] Clinical History Ground glass opacity on imaging of lung 06/04/2018 2:09 PM CDT [facility] Gross Description 1 cytospin pap and 1 cytospin GMS slides from 20 cc collection fluid 06/04/2018 2:09 PM [facility] Microscopic Description Review of 1 cytospin pap slide reveals few bronchial cells and marked acute inflamation in a background of thick dense mucoid material. A GMS stain does not show evidence of fungal organisms. ES/RD 06/04/2018 2:09 PM T [facility] Disclaimer The performance characteristics of all immunohistochemical and indirect immunofluorescence stains (if any) cited in this report were determined by the Histopathology Laboratory of [facility]. Some of these tests rely on the use of analyte-specific reagents and are subject to specific labeling requirements by the US Food and Drug Administration. Such tests were developed by the Histology Laboratory of [facility] and have not been cleared or [...] attending (teaching) pathologist. 06/04/2018 2:09 PM T [facility] Embedded Images 06/04/2018 2:09 PM T [facility] Pathology/Cytolo gy SPECIMEN FROM LUNG OBTAINED BY BRONCHIAL WASHING PROCEDURE / Unknown Collection / Unknown 06/01/2018 12:37 PM CDT 06/01/2018 2:26 PM CDT Comment:wash Balbina Munoz MD LAB - PATHOLOGY /CYTOLOGY ORDERABLES Performing Organization Address [facility]/ZIP Co de Phone Number [facility] [address] [place] [address], [facility] [phone] * VIRAL CULTURE INFLUENZA (06/01/2018 12:35 PM CDT) Viral Culture Rapid Influenza Comment 06/04/2018 2:12 PM CDT [facility] ([facility]) Comment: Negative: No Influenza A or B detected. Microbiology SPECIMEN FROM LUNG OBTAINED BY BRONCHIAL WASHING PROCEDURE / Unknown Collection / Unknown 06/01/2018 12:35 PM CDT 06/01/2018 1:22 PM CDT Narrative [facility] ([facility]) - 06/04/2018 2:12 PM CDT Performed at: [facility] Lab[address] [id number] Manager Military: Maycol Coronado PhD, Phone: [phone] Balbina Munoz MD LAB - MICROBIOL OGY ORDERABLES Performing Organization Address [facility] Co de Phone Number [facility] ([facility]) [address] [place] [phone] * CULTURE BRONCHIAL WASHING+GRAM STAIN (06/01/2018 12:35 PM CDT) Pathologist [facility] Culture Light normal oropharyngeal susy TANIYA 06/03/2018 7:25 AM CDT [facility] Gram Stain Heavy Polymorphonuclear cells 06/03/2018 7:25 AM CDT [facility] Gram Stain Light Gram-positive cocci 06/03/2018 7:25 AM CDT [facility] Microbiology SPECIMEN FROM LUNG OBTAINED BY BRONCHIAL WASHING PROCEDURE / Unknown Collection / Unknown 06/01/2018 12:35 PM CDT 06/01/2018 1:21 PM CDT Balbina Munoz MD LAB - MICROBIOL OGY ORDERABLES Performing Organization Address City/[facility]/ZIP Co de Phone Number [facility] [address] [place] [address], [facility] [phone] * (ABNORMAL) CULTURE TISSUE+GRAM STAIN (06/01/2018 12:31 PM CDT) Culture Rare Streptococcus mitis/oralis(AA) TANIYA 06/04/2018 7:35 AM CDT [facility] Culture Rare Streptococcus agalactiae (Group B)(AA) 06/04/2018 7:35 AM CDT [facility] Culture Rare Georgina albicans(AA) TANIYA 06/04/2018 7:35 AM CDT [facility] Gram Stain Light White blood cells 06/04/2018 7:35 AM CDT [facility] Gram Stain No organisms seen 018 7:35 AM CDT [facility] MICROBIOLOG[facility] Microbiology ENTIRE LUNG / Unknown Collection / Unknown 06/01/2018 12:31 PM CDT 06/01/2018 1:19 PM CDT Narrative [facility] - 06/04/2018 7:35 AM CDT Susceptibility testing of penicillin, other beta-lactam antibiotics, and vancomycin is not necessary for beta-hemolytic streptococci groups A,B,C and G because resistant strains have not been recognized. Balbina Munoz MD LAB - MICROBIOL OGY ORDERABLES [facility] MICROBIOLOG[facility] [address] [place] [facility], [facility] [phone] * CULTURE BRONCHIAL BRUSHINGS QUANT (06/01/2018 12:04 PM CDT) Culture No growth TANIYA 06/03/2018 7:23 AM CDT [facility] MICROBIOLOGY Microbiology BRONCHIAL BRUSHINGS SPECIMEN / Unknown Collection / Unknown 06/01/2018 12:04 PM CDT 06/01/2018 1:21 PM CDT Balbina Munoz MD LAB - MICROBIOL OGY ORDERABLES [facility] MICROBIOLOGY [address] [place] [address], [facility] [phone] * BRONCHOSCOPY (06/01/2018 10:38 AM CDT) Report Endoscopy POC [facility] Advanced Diagnostic Bronchoscopy and Interventional Pulmonary Service __ _ Patient Name: Xavier Sosa Procedure Date: 06/01/2018 10:38 AM Date of : 1950 Attending MD: Balbina Munoz MD Age: 67 Room: Bronch Suite __ _ Providers: Balbina Munoz MD, Demsond Ross MD (Fellow), Jacek Deleon MD, MD (Fellow), Vi Arndt AUTOMOBILE MECHANIC RADIATOR, Jaki Mas AUTOMOBILE MECHANIC RADIATOR Referring MD: Procedure: Bronchoscopy Indications: Unresolving right [...] BAL obtained from RUL and RML 3) [place] and biopsy obtained from RUL Recommendation: - [...] 06/01/2018 10:38 AM Number of Addenda: 0 [facility] [address] [facility] [place] [address] [facility] 06/01/2018 10:3 8 AM CDT Jacek Deleon MD RESPIRATORY THERAPY ORDERABLES [facility] * STREP PNEUMONIAE ANTIGEN URINE (05/31/2018 9:12 PM CDT) Streptococcus pneumoniae Antigen Urine Negative Negative 06/01/2018 4:23 AM CDT [facility] MICROBIOLOG[facility] Urine URINE / Unknown Collection / Unknown 05/31/2018 9:12 PM CDT 05/31/2018 9:36 PM CDT [facility] MICROBIOLOGY - 06/01/2018 4:23 AM CDT Patients [...] - MICROBIOLOGY Vahid BRAY Performing Organization Address [facility] Co de Phone Number [facility] MICROBIOLOGY [address] [place] [address], [facility] [phone] * LEGIONELLA ANTIGEN URINE (05/31/2018 9:12 PM CDT) Legionella Antigen Urine Negative Negative 06/01/2018 4:24 AM CDT [facility] MICROBIOLOGY Urine URINE / Unknown Collection / Unknown 05/31/2018 9:12 PM CDT 05/31/2018 9:36 PM CDT [facility] MICROBIOLOGY - 06/01/2018 4:24 AM CDT This assay detects Legionella pneumophila serogroup one (1) antigen. A negative test result does not rule out the possibility of Legionella infection due to other serogroups or species of Legionella. A positive result may indicate a recent or remote infection with serogroup 1. Sly Diaz MD LAB - MICROBIOLOGY O ASA Performing Organization Address City/[facility]/ZIP Co de Phone Number [facility] MICROBIOLOGY [address] [place] [address], [facility] [phone] * (ABNORMAL) CULTURE SPUTUM+GRAM STAIN (05/31/2018 5:54 PM CDT) Only the most recent of2 resultswithin the time period is included. Culture Moderate Haemophilus influenzae (beta-lactamase negative)(A) 06/03/2018 7:38 AM CDT [facility] MICROBIOLOG[facility] Culture Light normal oropharyngeal susy TANIYA 06/03/2018 7:38 AM CDT [facility]CROBIOLOG[facility] Gram Stain <10 per low power field Squamous epithelial cells 06/03/2018 7:38 AM CDT [facility]CRO[facility] Gram Stain >= 25 per low power field Polymorphonuclear cells 06/03/2018 7:38 AM CDT [facility]CROBIOLOG[facility] Gram Stain Light Gram-positive cocci 06/03/2018 7:38 AM CDT [facility] MICROBIOLOG[facility] Gram Stain Light Gram-negative bacilli 06/03/2018 7:38 AM CDT [facility] MICROBIOLOGY Microbiology SPUTUM / Unknown Collection / Unknown 05/31/2018 5:54 PM CDT 05/31/2018 5:58 PM CDT Sly Diaz MD LAB - MICROBIOLOGY O RDERABLES [facility] MICROBIOLOGY [address] [place] [address], [facility] [phone] * PROCALCITONIN LEVEL (05/31/2018 1:30 PM CDT) PROCALCITONIN 0.06 <=0.10 ng/mL 05/31/2018 3:52 PM CDT [facility] Blood BLOOD SPECIMEN / Unknown Lab Venipuncture / Unknown 05/31/2018 1:30 PM CDT 05/31/2018 2:46 PM CDT Narrative [facility] - 05/31/2018 3:52 PM CDT The [...] Change in Procalcitonin Calculator is available at [email or web address] If clinical picture has not improved and PCT remains high, reevaluate and consider treatment failure or other causes. Sly Diaz MD LAB - CHEMISTRY KIT CASTELLON Performing Organization Address [facility] Co de Phone Number [address] [phone] * CULTURE BLOOD (05/31/2018 11:04 AM CDT) Only the most recent of9 resultswithin the time period is included. [facility] Culture No growth day 5 TANIYA 06/05/2018 4:00 PM CDT [facility] MICROBIOLOGY Blood PERIPHERAL BLOOD / Unknown Lab Venipuncture / Unknown 05/31/2018 11:04 AM CDT 05/31/2018 11:15 AM CDT Ina Boyer MD LAB - MICROBIOLOGY ORDERABLES Performing Organization Address [facility] de Phone Number [facility] MICROBIOLOGY [address] [phone] * LDH BLOOD (05/31/2018 11:04 AM CDT) Only the most recent of25 resultswithin the time period is included. [facility] LDH Total 158 125 - 243 Units/L 05/31/2018 11:41 AM CDT [facility] Blood BLOOD SPECIMEN / Unknown Lab Venipuncture / Unknown 05/31/2018 11:04 AM CDT 05/31/2018 11:15 AM CDT Ina Boyer MD LAB - CHEMISTRY OR DERABLES Performing Organization Address [facility] [place] [address], [facility] [phone] * XR CHEST 2VW (05/24/2018 2:11 PM CDT) Only the most recent of3 resultswithin the time period is included. Anatomical Region Laterality Modality Chest Radiographic Saray ging 05/24/2018 2:12 PM CDT Impressions 05/24/2018 2:15 PM CDT FINDINGS/IMPRESSION: Emphysematous changes are noted. There is no focal consolidation, pleural effusion, or pneumothorax. The cardiomediastinal silhouette is normal. Dictated by Ina Wang MD (radiology tech). Dr. ACNDELARIA Oleary have personally reviewed and interpreted this [...] is normal. Dictated by Ina Wang MD (radiology tech). Dr. CANDELARIA Oleary have personally reviewed and interpreted this examination/study. This report was electronically signed by CANDELARIA DOWLING on 05/24/2018 2:15 PM . Ina Boyer MD DIAGNOSTIC IMAGING ORDERABLES * (ABNORMAL) DIFFERENTIAL MANUAL (05/24/2018 12:52 PM CDT) Only the most recent of30 resultswithin the time period is included. WBC (corrected for NRBC) 6.6 10 3/uL 05/24/2018 1:[address] [facility] Total Cell Count 100 05/24/2018 1:[address] [facility] Neutrophils Absolute Manual 2.71 1.60 - 7.00 10 3/uL 05/24/2018 1:[address] [facility] Comment:(BANDS+SEGS) x WBC = NEUT # (ANC) Lymphocyte Absolute Manual 2.51 0.80 - 2.90 10 3/uL 05/24/2018 1:18 PM T [facility] Monocytes Absolute Manual 1.06(H) 0.14 - 0.66 10 3/uL 05/24/2018 1:18 PM [facility] Eosinophils Absolute Manual 0.07 0.00 - 0.22 10 3/uL 05/24/2018 1:18 PM [facility] Basophil Absolute Manual 0.13(H) 0.00 - 0.06 10 3/uL 05/24/2018 1:18 PM [facility] Band % Manual 20(H) 0 - 10 % 05/24/2018 1:18 PM [facility] Neutrophil % Manual 21(L) 30 - 60 % 05/24/2018 1:18 PM [facility] Lymphocyte % Manual 38 20 - 45 % 05/24/2018 1:18 PM [facility] Monocytes % Manual 16(H) 2 - 10 % 05/24/2018 1:18 PM [facility] Eosinophils % Manual 1 1 - 6 % 05/24/2018 1:18 PM [facility] Basophils % Manual 2 0 - 3 % 05/24/2018 1:18 PM [facility] Atypical Lymphocyte % Manual 2(H) 0 % 05/24/2018 1:18 PM [facility] Platelet Estimate Adequate Adequate 05/24/2018 1:18 PM [facility] RBC Morphology Normal 05/24/2018 1:18 PM [facility] Blood BLOOD SPECIMEN / Unknown Lab Venipuncture / Unknown 05/24/2018 12:52 PM CDT 05/24/2018 12:56 PM CDT Ina Boyer MD LAB - HEMATOLOGY O RDERABLES [facility] [address] [place] [address] * COMPLETE PFT W/WO BRONCHODILATOR (05/17/2018 2:25 PM CDT) Impressions Jeffery Vega MD - 05/17/2018 2:25 PM CDT [facility] DEPARTMENT OF PULMONARY, CRITICAL CARE, AND SLEEP MEDICINE PULMONARY FUNCTION TESTS Xavier R [place] 05/09/2018 INTERPRETATION Please see technologist's comments mentioned [...] - 7.2 mg/dL 04/29/2018 12:35 PM CDT [facility] Blood BLOOD SPECIMEN / Unknown Venipuncture / Unknown 04/29/2018 11:54 AM CDT 04/29/2018 12:02 PM CDT Ina Boyer MD LAB - CHEMISTRY OR DERABLES [address] [phone] * (ABNORMAL) PROTEIN ELECTROPHORESIS WO INTERP BLOOD (01/28/2018 10:19 AM LIFE ADVISOR) Only the most recent of22 resultswithin the time period is included. Interpretation Serum PE Abnormal Pattern(A) Normal Pattern [facility] Comment: Serum protein electrophoresis shows characteristic bands corresponding to albumin, alpha and beta globulins and polyclonal immunoglobulins. There is a band of restricted electrophoretic mobility in the gamma region previously identified as an IgM [place] monoclonal immunoglobulin. The monoclonal immunoglobulin concentration (0.1 g/dL) has not changed from a previous value of 0.1 g/dL measured in 10/2017. Elma Dupont MD *The electrophoresis pattern and the interpretation have been reviewed and verified by the teaching physician. Protein Total 5.5(L) 6.0 - 8.3 g/dL [facility] Albumin 4.0 3.3 - 5.6 g/dL [facility] Alpha-1 Globulins 0.2 0.1 - 0.3 g/dL [facility] Alpha-2 Globulins 0.6 0.5 - 1.0 g/dL [facility] Beta Globulins 0.6 0.6 - 1.1 g/dL [facility] Gamma Globulins 0.2(L) 0.6 - 1.6 g/dL [facility] Monoclonal Component(s) 0.1(H) None Detected g/dL [facility] Blood specimen (specimen) BLOOD SPECIMEN / Unknown 01/28/2018 10:19 AM LIFE ADVISOR 01/28/2018 10:32 AM LIFE ADVISOR Ina Boyer MD LAB - [place]MI[place] [address], [facility] [phone] * (ABNORMAL) IMMUNOFIXATION (01/28/2018 10:19 AM LIFE ADVISOR) Only the most recent of12 resultswithin the time period is included. Immunofixation Serum Abnormal Pattern(A) Normal Pattern [facility] Comment: Serum immunofixation electrophoresis shows polyclonal IgG and IgA immunoglobulins. Serum immunofixation electrophoresis identifies an IgM [place] monoclonal immunoglobulin. Elma Dupont MD *The electrophoresis pattern and the interpretation have been reviewed and verified by the teaching physician. Blood specimen (specimen) BLOOD SPECIMEN / Unknown 01/28/2018 10:19 AM LIFE ADVISOR 01/28/2018 10:32 AM LIFE ADVISOR Ina Boyer MD LAB - CHEMISTRY OR DERABLES [facility] [address] [phone] * ZINC BLOOD (06/23/2017 10:04 AM CDT) Zinc Blood 112 56 - 134 ug/dL [facility] ([facility]) Comment:Detection Limit = 5 Blood specimen (specimen) BLOOD SPECIMEN / Unknown 06/23/2017 10:04 AM CDT 06/23/2017 10:[address] [facility] ([facility]) - 06/25/2017 6:11 AM CDT Performed at: - [address] [id number] Manager Military: Eugene Boswell MD, Phone: [phone] Ina Boyer MD LAB - CHEMISTRY OR DERABLES Performing Organization Address [facility] Co de Phone Number [facility] ([facility] * COPPER BLOOD (06/23/2017 10:04 AM CDT) Copper 123 72 - 166 ug/dL [facility] ([facility]) Comment:Detection Limit = 5 Blood specimen (specimen) BLOOD SPECIMEN / Unknown 06/23/2017 10:04 AM CDT 06/23/2017 10:[address] [facility] (BE[facility]ER) - 06/25/2017 6:11 AM CDT Performed at: - [address] [id number] Manager Military: Eugene Boswell MD, Phone: [phone] Ina Boyer MD LAB - CHEMISTRY OR DERABLES Performing Organization Address City/[facility] de Phone Number [facility]) * (ABNORMAL) FOLATE (06/23/2017 10:04 AM CDT) Only the most recent of2 resultswithin the time period is included. Pathologist [facility] Folate 36.7(H) 7.0 - 31.4 ng/mL [facility] Comment:Result obtained by jag leone. Blood specimen (specimen) BLOOD SPECIMEN / Unknown 06/23/2017 10:04 AM CDT 06/23/2017 10:27 AM CDT Ina Boyer MD LAB - CHEMISTRY OR DERABLES Performing Organization Address [facility] de Phone Number [address] [phone] * BK VIRUS PCR QUANTITATIVE URINE (05/21/2017 9:55 AM CDT) Only the most recent of4 resultswithin the time period is included. Pathologist [facility] BK Virus copy/mL Urine Negative Negative copies/mL [facility] ([facility]) Comment: No BK DNA detected. The quantitative range of this assay is 200 to 10 million copies/mL. This test was developed and its performance characteristics determined by [facility]. It has not been cleared or approved by the Food and Drug Administration. The FDA has determined that such clearance or approval is not necessary. BK Virus log copy/mL Urine TNP [id number] L [facility]) Comment: Unable to calculate result since non-numeric result obtained for component test. Urine specimen (specimen) (Urine, unspecified source) 05/21/2017 9:55 AM CDT 05/21/2017 10:43 AM CDT Narrative [facility]) - 05/26/2017 11:12 AM CDT Performed at: [address] [place] [id number] Manager Military: Eugene Boswell MD, Phone: [phone] Ina Boyer MD LAB - MICROBIOLOGY ORDERABLES Performing Organization Address [facility] Co de Phone Number [facility]) * (ABNORMAL) HEPATIC FUNCTION PANEL (03/11/2017 9:44 AM CDT) Protein Total 6.3(L) 6.4 - 8.4 g/dL [facility] ([facility]) Albumin 4.3 3.6 - 5.1 g/dL [facility] ([facility]) Globulin 2.0(L) 2.2 - 4.0 g/dL (calc) [facility] ([facility]) Albumin/Globulin Ratio 2.2 0.9 - 2.3 (calc) [facility] ([facility]) Bilirubin Total 0.7 0.2 - 1.2 mg/dL [facility] ([facility]) Bilirubin Direct 0.2 < OR = 0.2 mg/dL [facility] ([facility]) Bilirubin Indirect 0.5 0.2 - 1.2 mg/dL (calc) [facility] ([facility]) Alkaline Phosphatase 93 40 - 115 U/L [facility] ([facility]) AST 27 10 - 35 U/L [facility] ([facility]) ALT 35 9 - 46 U/L [facility] ([facility]) Comment: REPORT COMMENT: FASTING:NO Test Performed at: [facility] [address] [place] [address] EUGENE REYNOSO DO,MPH Blood specimen (specimen) BLOOD SPECIMEN / Unknown 03/11/2017 9:44 AM CDT 03/11/2017 9:45 AM CDT Leona Tay PROGRAM DIRECTOR-TRICHOLOGIST LAB - CHEMIS TRY ORDERABLES [facility] ([facility]) * COMPLETE PFT W/WO BRONCHODILATOR (03/02/2017 9:04 AM CDT) Impressions [facility] RADIOLOGY - 03/02/2017 9:04 AM CDT [facility] DEPARTMENT OF PULMONARY, CRITICAL CARE, AND [...] Note ProviderAna Rosa MD - 05/07/2018 IMPRESSION [facility] DEPARTMENT OF PULMONARY, CRITICAL CARE, AND [...] resultswithin the time period is included. Pathologist [facility] Cells (CD4) Accession No: [id number] Specimen: Blood Reference:[id number] Reason for test: CD4 Requested Markers: 3 [...] 2-6 CD15 0-1 IgD 3-15 CD16 0-23 [place] 3-12 CD19 8-24 Lambda 3-7 CD20 7-17 HLA-DR 9-25 CD23 2-16 TdT 0 Test performed at [facility], [address] [place] [address] This test was developed and its performance [...] perform high complexity clinical testing. By law [place], CD4 lymphocyte counts on patients with HIV infection must be reported by the physician to the [facility] authority. [facility] ([facility]) Other (qualifier value) 02/26/2017 9:58 AM CDT 02/26/2017 10:13 AM CDT Ina Boyer MD LAB - HEMATOLOGY O ASA Performing Organization Address City/[facility]/ZIP Co de Phone Number [facility] ([facility]) * PATHOLOGY/GENETICS HISTORICAL-ONBASE (01/12/2017) Only the most recent of4 resultswithin the time period is included. 01/12/2017 Historical Provider LAB - CHEMISTRY O ASA Performing Organization Address City/[facility] Co de Phone Number [address] * HOLD SPECIMEN DNA (01/05/2017 2:00 PM LIFE ADVISOR) Only the most recent of4 resultswithin the time period is included. DNA Hold Specimen Accession No: [id number] Specimen: Bone Marrow Reference: [id number] Test: HemOnc Isolation Only RESULT DNA was [...] determined by the DNA Diagnostic Laboratory at [facility]. It has not been cleared or approved [...] complexity clinical laboratory testing. Test performed at [address] PATHOLOGY LAB ([facility]) Other (qualifier value) 01/05/2017 2:00 PM LIFE ADVISOR 01/05/2017 2:17 PM LIFE ADVISOR Historical Provider MD LAB - PATHOLOGY/C YTOLOGY ORDERABLES Performing Organization Address City/[facility] Co de Phone Number [facility] ([facility]) * CYTOGENETICS CANCER PANEL (01/05/2017 2:00 PM LIFE ADVISOR) Only the most recent of8 resultswithin the time period is included. [facility] Chrom KIM-Bone Marrow See scanned report. [facility] REF LAB NON INTERF Bone marrow source (specimen) BONE MARROW SPECIMEN / Unknown 01/05/2017 2:00 PM LIFE ADVISOR 01/05/2017 2:17 PM LIFE ADVISOR Historical Provider MD LAB - PATHOLOGY/C YTOLOGY ORDERABLES Performing Organization Address [facility] de Phone Number [facility] REF LAB NON INTERF * CHROMOSOME ANALYSIS PANEL (01/05/2017 2:00 PM LIFE ADVISOR) Only the most recent of4 resultswithin the time period is included. [facility] Chromosome Analysis FISH See scanned report. [facility] REF LAB NON INTERF Blood specimen (specimen) 01/05/2017 2:00 PM LIFE ADVISOR 01/05/2017 2:17 PM LIFE ADVISOR Historical Provider MD LAB - PATHOLOGY/C YTOLOGY ORDERABLES Performing Organization Address [facility] de Phone Number [facility] REF LAB NON INTERF * FLOW CYTOMETRY PANEL (01/05/2017 2:00 PM LIFE ADVISOR) Only the most recent of5 resultswithin the time period is included. [facility] Flow Cytometry Results Accession No: [id number] Specimen: Bone Marrow Reference: [id number] Reason for test: Waldenstrom Macroglobulinemia Markers: 14 [...] region Lymphocyte Region Surface Marker Result (%) [place]+CD19+ 0 Lambda+CD19+ 0 CD3 85 CD5 84 [...] 2-6 CD15 0-1 IgD 3-15 CD16 0-23 [place] 3-12 CD19 8-24 Lambda 3-7 CD20 7-17 [...] 0-16 CD16 0-34 IgD 0-20 CD19 0-48 [place] 0-6 CD20 0-10 Lambda 0-7 CD23 0-13 HLA-DR 67-100 TdT 0 * The established laboratory minimum viability is 70%. Values below this minimum may result in the failure to find an abnormal population of cells. Test performed at [facility], [address] [place] [address] This test was developed and its performance [...] bone marrow aspirate smear is reviewed for quality control scientist purposes. The bone marrow shows no evidence of non-Hodgkin lymphoma, high grade myeloid neoplasm, or plasma cell dyscrasia. Correlation with additional clinical information and the bone marrow biopsy specimen ([id number]) is required. KR This case has been personally reviewed and interpreted by the attending (teaching) pathologist. Final Diagnosis performed by Katelynn Clancy MD. Electronically signed 01/06/2017 [facility] ([facility]) Other (qualifier value) BONE MARROW SPECIMEN / Unknown 01/05/2017 2:00 PM LIFE ADVISOR 01/05/2017 2:17 PM LIFE ADVISOR Historical Provider MD LAB - HEMATOLOGY ORDERABLES [facility] ([facility]) * CT CHEST ABDOMEN PELVIS W CONT (01/05/2017 11:54 AM LIFE ADVISOR) Only the most recent of3 resultswithin the time period is included. Anatomical Region Laterality Modality Chest, Abdomen, Pelvis Other Impressions 01/06/2017 5:13 PM LIFE ADVISOR IMPRESSION: 1. Interval decrease in size of retroperitoneal lymph nodes since the prior exam, now measuring less than 1 cm. 2. Interval resolution of the previously seen focal ground glass opacity in the right lower lobe. Dictated by Pedro Mijares MD (radiology tech). I, Dr. DANIELA ASCENCIO M.D. have personally reviewed and interpreted this examination/study. This report was electronically signed by DANIELA ASCENCIO M.D. on 01/06/2017 5:13 PM . Narrative 01/06/2017 5:13 PM LIFE ADVISOR EXAMINATION: Computed tomography (CT) of the chest, [...] lower lobe. Dictated by Pedro Mijares MD (radiology tech). I, Dr. DANIELA ASCENCIO M.D. have personally reviewed and interpreted thisexamination/study. This report was electronically signed by DANIELA ASCENCIO M.D. on 01/06/20175:13 PM . Ina Boyer MD CT ORDERABLES * COMPLETE PFT W/WO BRONCHODILATOR (12/08/2016) Impressions [facility] RADIOLOGY - 12/08/2016 12:00 AM [facility] DEPARTMENT OF PULMONARY, CRITICAL CARE, AND SLEEP [...] of Pulmonary, Critical Care, & Sleep Medicine [facility] I have reviewed the pulmonary function test data and made adjustment to the interpretation where necessary. Abel Hatfield MD 12/15/2016 Narrative Procedure Note Provider, MD Ana Rosa - 05/07/2018 IMPRESSION [facility] DEPARTMENT OF PULMONARY, CRITICAL CARE, AND [...] of Pulmonary, Critical Care, & Sleep Medicine [facility] I have reviewed the pulmonary function test data and made adjustment tothe interpretation where necessary. Abel Hatfield MD 12/15/2016 Jamie Arboleda MD RESPIRATORY THERAPY ORDERABLES [facility] RADIOLOG[facility] * IR CENTRAL LINE REMOVAL (10/27/2016 1:41 PM LIFE ADVISOR) Anatomical Region Laterality Modality Other Narrative 10/27/2016 3:09 PM LIFE ADVISOR This is an interventional nephrology procedure performed on October 27, 2016 Wire Wheeler: Migel Barrera Procedure : 1. Removal of [...] an interventional nephrology procedure performed on September Wire Wheeler: Migel Barrera Procedure : 1. Removal of [...] M.D. on 10/27/20163:09 PM . Yesy Dias PROGRAM DIRECTOR-TRICHOLOGIST IR ORDERABLES * CULTURE URINE (10/27/2016 10:52 AM LIFE ADVISOR) Only the most recent of2 resultswithin the time period is included. Culture Urine No Growth of >100 CFU/ml after [address] [facility] Urine specimen (specimen) URINE / Unknown 10/27/2016 10:52 AM LIFE ADVISOR 10/27/2016 10:52 AM LIFE ADVISOR Narrative [facility] - 10/29/2016 10:57 AM LIFE ADVISOR Specimen Type->Urine Yesy Mario Arun BARONN-TRICHOLOGIST LAB - MICROBIOL OGY ORDERABLES [address] [phone] * (ABNORMAL) URINALYSIS W/MICROSCOPIC NO CULTURE (10/27/2016 10:47 AM LIFE ADVISOR) Only the most recent of3 resultswithin the time period is included. Color UA Yellow Straw, Yellow, Colorless, Light Yellow [facility] Clarity UA Clear Clear [facility] Specific Mobile UA 1.008 1.001 - 1.030 [facility] pH UA 6.5 5.0 - 8.0 [facility] Protein UA Negative <=20 mg/dL [facility] Glucose UA Negative Negative mg/dL [facility] Ketone UA Negative Negative mg/dL [facility] Bilirubin UA Negative Negative mg/dL [facility] Blood UA Negative Negative [facility] Nitrite UA Negative Negative [facility] Leukocyte Esterase Negative Negative [facility] Urobilinogen UA <2.0 <2.0 mg/dL [facility] RBC UA 1 0 - 8 /HPF [facility] WBC UA 1 0 - 2 /HPF [facility] Squamous Epithelial Cells UA <1 0 - 1 /HPF [facility] Mucus UA Rare(A) None /LPF [facility] Urine specimen (specimen) URINE SPECIMEN OBTAINED BY CLEAN CATCH PROCEDURE / Unknown 10/27/2016 10:47 AM LIFE ADVISOR 10/27/2016 10:52 AM LIFE ADVISOR Yesy Dias APRN-TRICHOLOGIST LAB - URINALYSI S ORDERABLES [address] [phone] * (ABNORMAL) KAPPA/LAMBDA LITE CHAIN FREE PANEL (10/21/2016 10:00 AM LIFE ADVISOR) Only the most recent of5 resultswithin the time period is included. [facility] Free [place] Light Chains Quantitative 4.50 3.30 - 19.40 mg/L [facility] ([facility]) Free Lambda Light Chains Quantitative 2.52(L) 5.71 - 26.30 mg/L [facility] ([facility]) [place]/Lambda Ratio 1.79(H) 0.26 - 1.65 [facility] ([facility]) Blood specimen (specimen) BLOOD SPECIMEN / Unknown 10/21/2016 10:00 AM LIFE ADVISOR 10/21/2016 11:12 AM LIFE ADVISOR Narrative [facility] ([facility]) - 10/22/2016 5:10 PM LIFE ADVISOR Performed at: [address] [place] [address] [id number] Manager Military: Maycol Coronado PhD, Phone: [phone] Yesy Dias PROGRAM DIRECTOR-TRICHOLOGIST LAB - CHEMISTRY ORDERABLES Performing Organization Address City/[facility]/ZIP Co de Phone Number [facility] ([facility]) * (ABNORMAL) IGA BLOOD (10/21/2016 10:00 AM LIFE ADVISOR) Only the most recent of4 resultswithin the time period is included. [facility] IgA 14(L) 87 - 534 mg/dL [facility] Blood specimen (specimen) BLOOD SPECIMEN / Unknown 10/21/2016 10:00 AM LIFE ADVISOR 10/21/2016 11:12 AM LIFE ADVISOR Yesy Mario Dias APRN-TRICHOLOGIST LAB - CHEMISTRY ORDERABLES [address] [phone] * (ABNORMAL) VANCOMYCIN LEVEL TROUGH (10/03/2016 9:24 AM CDT) Only the most recent of2 resultswithin the time period is included. [facility] Vancomycin Trough 20.5(H) 10.0 - 20.0 mcg/mL [facility] Blood specimen (specimen) BLOOD SPECIMEN / Unknown 10/03/2016 9:24 AM CDT 10/03/2016 9:58 AM CDT Cherry Moreno APRN-TRICHOLOGIST LAB - CHEMISTRY ORDE CANDE Performing Organization Address [facility]/ZIP Co de Phone Number [address] [phone] * CROSSMATCH RBC LEUKOREDUCED (10/01/2016 2:20 AM CDT) Irradiated RBC [id number] transfused [facility] PRODUCTS (BEAKER) Unit ABO O [facility] PR[facility] (BEAKER) Unit Rh POS [facility] (BEAKER) Unit Number [id number] [facility] (BEAKER) Unit Status Transfused [facility] BLO OD BANK PRODUCTS (BEAKER) 10/01/2016 2:20 AM CDT 10/01/2016 2:[address] [facility]LOOD [facility] PRODUCTS (BEAKER) - 10/01/2016 2:20 AM CDT Special Requirements->CMV Negative Special Requirements->Irradiated # of Units->1 Sterling Miguel MD LAB - BLOOD BANK ORD ERABLES Performing Organization Address [facility] Co de Phone Number [facility] * (ABNORMAL) PLATELET COUNT AUTO (09/30/2016 12:24 PM CDT) Only the most recent of3 resultswithin the time period is included. Platelet Count 28(LL) 150 - 400 10 3/uL [facility] Comment:Confirmed by repeat analysis. Checked and not called to [address]. Blood specimen (specimen) BLOOD SPECIMEN / Unknown 09/30/2016 12:24 PM CDT 09/30/2016 12:35 PM CDT Stephanie Choe APRN-TRICHOLOGIST LAB - HEMATOLOG Y ORDERABLES [address] [phone] * CLOSTRIDIUM DIFFICILE GD AG + TOXIN A+B (09/29/2016 3:03 PM CDT) Only the most recent of2 resultswithin the time period is included. C difficile Antigen Negative Negative [facility] C difficile Toxin Negative Negative [facility] Stool specimen (specimen) STOOL SPECIMEN / Unknown 09/29/2016 3:03 PM CDT 09/29/2016 3:09 PM CDT Narrative [facility] - 09/30/2016 12:30 PM CDT Specimen Type->Stool Andre Burroughs PROGRAM DIRECTOR-TRICHOLOGIST LAB - MICROBIOLO GY ORDERABLES [facility] [address] [phone] * AMIKACIN LEVEL RANDOM (09/25/2016 4:41 PM CDT) Amikacin Random [facility] REF LAB NON INTERF Blood specimen (specimen) BLOOD SPECIMEN / Unknown 09/25/2016 4:41 PM CDT 09/25/2016 4:[address] [facility] REF LAB NON INTERF - 09/25/2016 7:51 PM CDT Please draw 6 hours after amikacin administration. Thanks! Stephanie Choe PROGRAM DIRECTOR-TRICHOLOGIST LAB - CHEMISTRY ORDERABLES Performing Organization Address City/[facility]/ZIP Co de Phone Number [facility] REF LAB NON INTERF * FLOW CTP CD3/CD34/CD45 COUNT RESULT ONLY (09/03/2016 9:41 AM CDT) Donor CD34+CD45 Flow Cytometry Accession No: [id number] Specimen: HPCA Reference:[id number] Reason for test: CD34 / CD45 Requested Markers: 2 Flow Cytometry Results: Differential Result Comment CD34 Cells/ml(10^6) 0.83 %VIABILITY * 100 Lymph/[place]/Gran Region Surface Marker Result (%) Abs Count (cells/ul) CD34 0.26 832.000 CD45 88 337117.000 A discrete stem cell population is evident. Test performed at [facility], [address] [place] [address] INTERPRETATION: This results in 341.120 x 10^6 total cells. [facility] ([facility]) Blood specimen (specimen) 09/03/2016 9:41 AM CDT 09/03/2016 9:41 AM CDT Narrative [facility] ([facility] - 09/03/2016 4:49 PM CDT [id number] Manuel Rodriguez MD LAB - PATHOLOGY/CYTO LOGY ORDERABLES [facility] ([facility]) * (ABNORMAL) CALCIUM IONIZED WHOLE BLOOD (09/03/2016 7:09 AM CDT) Only the most recent of3 resultswithin the time period is included. [facility] Ionized Calcium Whole Blood 1.18 mmol/L [facility] Adjusted Ionized Calcium 1.17(L) 1.19 - 1.34 mmol/L [facility] pH Whole Blood 7.39 7.35 - 7.45 [facility] Blood specimen (specimen) BLOOD SPECIMEN / Unknown 09/03/2016 7:09 AM CDT 09/03/2016 7:14 AM CDT Sterling Miguel MD LAB - CHEMISTRY KIT CASTELLON Performing Organization Address [facility] Co de Phone Number [address] [phone] * POTASSIUM BLOOD (09/03/2016 7:09 AM CDT) [facility] Potassium 4.1 3.5 - 4.5 mmol/L [facility] Blood specimen (specimen) BLOOD SPECIMEN / Unknown 09/03/2016 7:09 AM CDT 09/03/2016 7:14 AM CDT Sterling Miguel MD LAB - CHEMISTRY KIT CASTELLON Performing Organization Address [facility]/ZIP Co de Phone Number [address] [phone] * FLOW CYTOMETRY CD34 COUNT DONOR (09/03/2016 7:09 AM CDT) [facility] Donor CD34 Accession No: [id number] Specimen: Blood Reference:[id number] Reason for test: CD34 / CD45 Requested Markers: 2 Flow Cytometry Results: Differential Result Comment CD34 Cells/ml(10^6) 0.03 %VIABILITY * 98 Lymph/[place]/Gran Region Surface Marker Result (%) Abs Count (cells/ul) CD34 0.09 34.110 CD45 99 70142.000 A discrete stem cell population is evident. Test performed at [facility], [address] [place] [address] INTERPRETATION: NA [facility] ([facility] Blood specimen (specimen) 09/03/2016 7:09 AM CDT 09/03/2016 8:26 AM CDT Sterling Miguel MD LAB - PATHOLOGY/CYTO LOGY ORDERABLES [facility] ([facility]) * IR PICC LINE INSERT (09/01/2016 1:06 PM CDT) Anatomical Region Laterality Modality Other Narrative 09/03/2016 12:29 PM CDT This is an Interventional Nephrology procedure performed on 09/01/16 Wire Wheeler: Allison Saavedra M.D. Attending: Allison Saavedra M.D. Buckle Frame Shaper: Rajendra Cooley M.D. Procedures performed: 1. Insertion [...] This allowed the placement of a 5 Cuban trocar which in turn allowed the placement [...] an Interventional Nephrology procedure performed on 09/01/16 Wire Wheeler: Allison Saavedra M.D. Attending: Allison Saavedra M.D. Buckle Frame Shaper: Rajendra Cooley M.D. Procedures performed: 1. Insertion [...] guidance. This allowed the placementof a 5 Cuban trocar which in turn allowed the placement [...] an Interventional Nephrology procedure performed on 09/01/16 Wire Wheeler: Allison Saavedra M.D. Attending: Allison Saavedra M.D. Buckle Frame Shaper: Rajendra Cooley M.D. Procedures performed: 1. Insertion [...] This allowed the placement of a 5 Cuban trocar which in turn allowed the placement [...] an Interventional Nephrology procedure performed on 09/01/16 Wire Wheeler: Allison Saavedra M.D. Attending: Allison Saavedra M.D. Buckle Frame Shaper: Rajendra Cooley M.D. Procedures performed: 1. Insertion [...] guidance. This allowed the placementof a 5 Cuban trocar which in turn allowed the placement [...] an Interventional Nephrology procedure performed on 09/01/16 Wire Wheeler: Allison Saavedra M.D. Attending: Allison Saavedra M.D. Buckle Frame Shaper: Rajendra Cooley M.D. Procedures performed: 1. Insertion [...] This allowed the placement of a 5 Cuban trocar which in turn allowed the placement [...] an Interventional Nephrology procedure performed on 09/01/16 Wire Wheeler: Allison Saavedra M.D. Attending: Allison Saavedra M.D. Buckle Frame Shaper: Rajendra Cooley M.D. Procedures performed: 1. Insertion [...] guidance. This allowed the placementof a 5 Cuban trocar which in turn allowed the placement [...] CDT) Hepatitis B Surface Antigen Negative Negative [facility] Hepatitis C Virus Antibody Negative Negative [facility] HIV-1 / HIV-2 Antibody Western Blot Negative Negative [facility] Hepatitis B Core Virus Antibody Negative Negative [facility] HTLV-I/II Antibody Negative Negative S [facility] NTL T. pallidum Antibody Negative Negative [facility] Cytomegalovirus Antibody Positive(A) Negative [facility] HIV-1/HCV/HBV (TAMMI) Negative Negative [facility] West Nile Virus Negative Negative [facility] Chagas Antibody Negative Negative [facility] Blood specimen (specimen) BLOOD SPECIMEN / Unknown 08/22/2016 8:57 AM CDT 08/22/2016 9:31 AM CDT Narrative [facility] - 08/25/2016 10:46 AM CDT [employer] ID [id number] Performed By: [employer] [facility] [address] [place] [address] Historical Provider LAB - CHEMISTRY O RDERABLES Performing Organization Address City/State/[facility] Co de Phone Number [address] [phone] * (ABNORMAL) LIPID PROFILE (08/22/2016 8:56 AM CDT) Cholesterol Total 186 <200 mg/dL [facility] HDL 50 >40 mg/dL [facility] Comment: ATP III Classification of HDL Cholesterol: <40 mg/dL: Considered a major risk factor. >60 mg/dL: Considered a negative risk factor. LDL Calculated 118(H) <100 mg/dL [facility] Comment: ATP III Classification of LDL Cholesterol: <100 mg/dL: Optimal 100 - 129 mg/dL: Near Optimal/Above Optimal 130 - 159 mg/dL: Borderline High 160 - 189 mg/dL: High >190 mg/dL: Very High Triglycerides 88 <150 mg/dL [facility] Comment: ATP III Classification of Triglycerides: <150 mg/dL: Normal 150 - 199 mg/dL: Borderline High 200 - 400 mg/dL: High >500 mg/dL: Very High Blood specimen (specimen) BLOOD SPECIMEN / Unknown 08/22/2016 8:56 AM CDT 08/22/2016 9:05 AM CDT Sterling Miguel MD LAB - CHEMISTRY KIT CASTELLON Performing Organization Address City/[facility]/ZIP Co de Phone Number [address] [phone] * TRANSFERRIN (08/22/2016 8:56 AM CDT) Only the most recent of3 resultswithin the time period is included. Transferrin 296 174 - 382 mg/dL [facility] Transferrin Saturation % 27 16 - 50 % [facility] Blood specimen (specimen) BLOOD SPECIMEN / Unknown 08/22/2016 8:56 AM CDT 08/22/2016 9:04 AM CDT Ana Rosa Provider LAB - CHEMISTRY O ASA Performing Organization Address [facility] Co de Phone Number [address] [phone] * FERRITIN (08/22/2016 8:56 AM CDT) Only the most recent of3 resultswithin the time period is included. Ferritin 27 22 - 275 ng/mL [facility] Blood specimen (specimen) BLOOD SPECIMEN / Unknown 08/22/2016 8:56 AM CDT 08/22/2016 9:04 AM CDT Sterling Miguel MD LAB - CHEMISTRY KIT CASTELLON Performing Organization Address [facility] Co de Phone Number [address] [phone] * CREATININE CLEARANCE URINE TIMED + BLOOD (08/19/2016 12:53 PM CDT) Only the most recent of5 resultswithin the time period is included. Creatinine Urine 116 Not Established mg/dL [facility] Creatinine 1.0 0.6 - 1.2 mg/dL [facility] Volume Timed Urine 1,550 mL [facility] Comment:This is a corrected result. Previous result was 24 mL on 08/19/2016 at 1437 CDT Collection Time Timed Urine 24 Hrs [facility] Comment: Volume and collection period were switched. This is a corrected result. Previous result was 1550.00 Hrs on 08/19/2016 at 1437 CDT Creatinine Clearance 125 70 - 130 mL/minute/1.73m 2 [facility] Comment:This is a corrected result. Previous result was <1 mL/minute/1.73m2 on 08/19/2016 at 1437 CDT Chart BSA 2.36 Avg. BSA = 1.73 m2 m2 [facility] Creatinine Clearance (Corrected for BSA) 92 Not Established mL/minute [facility] Comment:This is a corrected result. Previous result was <1 mL/minute on 08/19/2016 at 1437 CDT Urine specimen (specimen) 08/19/2016 12:53 PM CDT 08/19/2016 1:42 PM CDT Ina Boyer MD LAB - URINE CHEMIS TRY ORDERABLES Performing Organization Address [facility] Co de Phone Number [address] [phone] * PROTEIN URINE TIMED QUANTITATIVE (08/19/2016 12:50 PM CDT) Protein Urine <7 Not Established mg/dL [facility] HOSPITAL Collection Time Timed Urine 24.00 Hrs [facility] Protein 24 Hour Urine <109 77 - 197 mg/24 hrs [facility] Comment:Unable to calculate excretion rate because the analyte concentration is outside the instrument measuring range. Volume Timed Urine 1,550 mL [facility] Urine specimen (specimen) (Urine, unspecified source) 08/19/2016 12:50 PM CDT 08/19/2016 1:42 PM CDT Ina Boyer MD LAB - URINE CHEMIS TRY ORDERABLES Performing Organization Address City/[facility]/ZIP Co de Phone Number [address] [place] [phone] * CREATININE BLOOD (08/19/2016 12:49 PM CDT) Only the most recent of2 resultswithin the time period is included. Pathologist [facility] Creatinine 1.0 0.6 - 1.2 mg/dL [facility] eGFR >60 >60 mL/min/1.73 m2 [facility] Blood specimen (specimen) BLOOD SPECIMEN / Unknown 08/19/2016 12:49 PM CDT 08/19/2016 1:00 PM CDT Sterling Miguel MD LAB - CHEMISTRY KIT CASTELLON [facility] [address] [phone] * (ABNORMAL) MICKEY-WALTON VIRUS ANTIBODY TO VCA IGG (08/19/2016 12:16 PM CDT) [facility] Mickey-Walton Virus Antibody To Viral Capsid Antigen IgG 504.0(H) 0.0 - 21.9 U/mL [facility] (BEAKER) Comment: INTERPRETIVE INFORMATION: Mickey-Walton Virus Antibody to Viral Capsid Antigen, IgG 17.9 U/mL or less.......Not Detected 18.0-21.9 U/mL..........Indeterminate - Repeat testing in 10-14 days may be helpful. 22.0 U/mL or greater....Detected Interpretive information regarding serologic features of EBV-associated diseases is available at www.[email or web address]/ebvdx. Blood specimen (specimen) BLOOD SPECIMEN / Unknown 08/19/2016 12:16 PM CDT 08/19/2016 1:07 PM CDT Sterling Miguel MD LAB - CHEMISTRY KIT CASTELLON [facility] (BEAKER) * HEPATITIS B SURFACE ANTIBODY (08/19/2016 12:16 PM CDT) [facility] Hepatitis B Virus Surface Antibody Non-react mariusz Non-react mariusz [facility] Comment: < 8 mIU/mL Hepatitis B surface Antibody (HBsAb). Nonreactive for HBsAb - individual is considered not immune to Hepatitis B Virus infection. Hepatitis B Surface Antibody Quantitative 0.1 <8.0 mIU/mL [facility] Comment: Hepatitis B Surface Antibody Numeric Result Interpretation: Nonreactive: <8.0 mIU/mL Indeterminate: 8.0 - 12.0 mIU/mL Reactive: >12.0 mIU/mL Blood specimen (specimen) BLOOD SPECIMEN / Unknown 08/19/2016 12:16 PM CDT 08/19/2016 1:01 PM CDT Sterling Miguel MD LAB - CHEMISTRY ORDE CANDE Performing Organization Address [facility]/ZIP Co de Phone Number [address] [phone] * MICKEY-WALTON VIRUS ANTIBODY TO VCA IGM (08/19/2016 12:16 PM CDT) Mickey-Walton VCA Antibody IgM <10.0 0.0 - 43.9 U/mL [facility] (BEAKER) Comment: INTERPRETIVE INFORMATION: Mickey-Walton Virus Antibody to Viral Capsid Antigen, IgM 35.9 U/mL or less.......Not Detected 36.0-43.9 U/mL..........Indeterminate - Repeat testing in 10-14 days may be helpful. 44.0 U/mL or greater....Detected Interpretive information regarding serologic features of EBV-associated diseases is available at www.[email or web address]/ebvdx. Blood specimen (specimen) BLOOD SPECIMEN / Unknown 08/19/2016 12:16 PM CDT 08/19/2016 1:07 PM CDT Sterling Miguel MD LAB - SEROLOGY ORDER CALEB [facility] * (ABNORMAL) CYTOMEGALOVIRUS ANTIBODY IGG BLOOD (08/19/2016 12:16 PM CDT) Only the most recent of2 resultswithin the time period is included. [facility] Cytomegalovirus Antibody IgG 0.76(H) 0.00 - 0.59 U/mL [facility]) Comment: Negative <0.60 Equivocal 0.60 - 0.69 Positive >0.69 Blood specimen (specimen) BLOOD SPECIMEN / Unknown 08/19/2016 12:16 PM CDT 08/19/2016 1:07 PM CDT Narrative [facility]) - 08/21/2016 8:25 AM CDT Performed at: [address] [place] [address] [id number] Manager Military: Maycol Coronado PhD, Phone: [phone] Sterling Miguel MD LAB - CHEMISTRY KIT CASTELLON Performing Organization Address City/[facility]/ZIP Co de Phone Number [facility]) * (ABNORMAL) CHOLESTEROL BLOOD (08/19/2016 12:16 PM CDT) [facility] Cholesterol Total 209(H) <200 mg/dL [facility] Blood specimen (specimen) BLOOD SPECIMEN / Unknown 08/19/2016 12:16 PM CDT 08/19/2016 1:00 PM CDT Sterling Miguel MD LAB - CHEMISTRY KIT CASTELLON Performing Organization Address City/[facility]/ZIP Co de Phone Number [address] [phone] * (ABNORMAL) HERPES SIMPLEX 1+2 AB IGG SPEC (08/19/2016 12:16 PM CDT) [facility] Herpes Simplex Virus 1 Antibody IgG Type Specific 18.60(H) 0.00 - 0.90 index [facility]) Comment: Negative <0.91 Equivocal 0.91 - 1.09 Positive >1.09 Note: Negative indicates no antibodies detected to HSV-1. Equivocal may suggest early infection. If clinically appropriate, retest at later date. Positive indicates antibodies detected to HSV-1. Herpes Simplex Virus 2 Antibody IgG Type Specific <0.91 0.00 - 0.90 index [facility]) Comment: Negative <0.91 Equivocal 0.91 - 1.09 Positive >1.09 Note: Negative indicates no antibodies detected to HSV-2. Equivocal may suggest early infection. If clinically appropriate, retest at later date. Positive indicates antibodies detected to HSV-2. Blood specimen (specimen) BLOOD SPECIMEN / Unknown 08/19/2016 12:16 PM CDT 08/19/2016 1:07 PM CDT Narrative [facility] ([facility]) - 08/20/2016 8:28 AM CDT Performed at: [address] [place] [address] [id number] Manager Military: Maycol Coronado PhD, Phone: Garmentory Sterling Miguel MD LAB - SEROLOGY ORDER CALEB Performing Organization Address [facility] Co de Phone Number [facility]) * TOXOPLASMA GONDII ANTIBODY IGG (08/19/2016 12:16 PM CDT) Pathologist [facility] Toxoplasma gondii Antibody IGG 5.1 0.0 - 7.1 IU/mL [facility]) Comment: Negative <7.2 Equivocal 7.2 - 8.7 Positive >8.7 Blood specimen (specimen) BLOOD SPECIMEN / Unknown 08/19/2016 12:16 PM CDT 08/19/2016 1:06 PM CDT Narrative [facility]) - 08/20/2016 8:28 AM CDT Performed at: [address] [id number] Manager Military: Maycol Coronado PhD, Phone: [phone] Sterling Miguel MD LAB - CHEMISTRY ORDAmos CASTELLON Performing Organization Address [facility] Co de Phone Number [facility]) * HERPES SIMPLEX 1+2 ANTIBODY IGM (08/19/2016 12:16 PM CDT) Herpes Simplex Virus Antibody IgM I/II Combination <0.91 0.00 - 0.90 Ratio [facility]) Comment: Negative <0.91 Equivocal 0.91 - 1.09 Positive >1.09 Blood specimen (specimen) BLOOD SPECIMEN / Unknown 08/19/2016 12:16 PM CDT 08/19/2016 1:07 PM CDT Narrative [facility] ([facility]) - 08/20/2016 1:11 PM CDT Performed at: [address] [place] [address] [id number] Manager Military: Maycol Coronado PhD, Phone: [phone] Sterling Miguel MD LAB - CHEMISTRY KIT CASTELLON Performing Organization Address [facility] Co de Phone Number [facility]) * VARICELLA ZOSTER ANTIBODY IGM (08/19/2016 12:16 PM CDT) Pathologist [facility] Varicella zoster Virus Antibody IgM <0.91 0.00 - 0.90 index [facility]) Comment: Negative <0.91 Borderline 0.91 - 1.09 Positive >1.09 Blood specimen (specimen) BLOOD SPECIMEN / Unknown 08/19/2016 12:16 PM CDT 08/19/2016 1:06 PM CDT Narrative [facility]) - 08/20/2016 3:16 PM CDT Performed at: [address] [place] [address] [id number] Manager Military: Maycol Coronado PhD, Phone: [phone] Sterling Miguel MD LAB - CHEMISTRY KIT CASTELLON Performing Organization Address [facility]/ZIP Co de Phone Number [facility]) * CYTOMEGALOVIRUS ANTIBODY IGM BLOOD (08/19/2016 12:16 PM CDT) Pathologist [facility] Cytomegalovirus Antibody IgM <30.0 0.0 - 29.9 AU/mL [facility]) Comment: Negative <30.0 Equivocal 30.0 - 34.9 Positive >34.9 A positive result is generally indicative of acute infection, reactivation or persistent IgM production. Blood specimen (specimen) BLOOD SPECIMEN / Unknown 08/19/2016 12:16 PM CDT 08/19/2016 1:[address] [facility]) - 08/21/2016 8:25 AM CDT Performed at: 01 - [address] [id number] Manager Military: Maycol Coronado PhD, Phone: [phone] Sterling Miguel MD LAB - CHEMISTRY KIT CASTELLON [facility] * SICKLE CELL SCREEN (08/19/2016 12:16 PM CDT) Pathologist [facility] Sickle Cell Screen Negative Negative [facility] Blood specimen (specimen) BLOOD SPECIMEN / Unknown 08/19/2016 12:16 PM CDT 08/19/2016 1:00 PM CDT Sterling Miguel MD LAB - HEMATOLOGY ORD JENNIFER Performing Organization Address [facility]/ZIP Co de Phone Number [address] [phone] * RETIC COUNT (08/19/2016 12:16 PM CDT) Only the most recent of2 resultswithin the time period is included. [facility] Reticulocyte % 1.2 0.4 - 2.5 % [facility] Reticulocyte Absolute 0.05 0.02 - 0.13 10 6/uL [facility] Blood specimen (specimen) BLOOD SPECIMEN / Unknown 08/19/2016 12:16 PM CDT 08/19/2016 1:00 PM CDT Sterling Miguel MD LAB - HEMATOLOGY PRAMOD RODRIGUEZ Performing Organization Address [facility]/ZIP Co de Phone Number [address] [phone] * PTT [facility] (08/19/2016 12:16 PM CDT) Pathologist [facility] APTT 23.6 23.0 - 38.4 Seconds [facility] Comment:Suggested therapeuti c range for full dose I.V. heparin therapy for venous thromboembolism is 66.0-91.0 seconds. Blood specimen (specimen) BLOOD SPECIMEN / Unknown 08/19/2016 12:16 PM CDT 08/19/2016 1:00 PM CDT Narrative [facility] - 08/19/2016 1:22 PM CDT Is patient on Heparin, Argatroban or Dabigatran?->N Sterling Miguel MD LAB - COAGULATION OR DERABLES Performing Organization Address [facility] Co de Phone Number [address] [phone] * PT-INR [facility] (08/19/2016 12:16 PM CDT) Only the most recent of2 resultswithin the time period is included. PT 13.4 12.1 - 14.8 Seconds [facility] INR 1.0 See Comment [facility] Comment: Suggested therapeutic range for low-intensity coumadin therapy for venous thromboembolism prophylaxis is an INR of 2.0-3.0. For high risk patients (Mitral Valve Prosthesis, Atrial Fibrillation, history of TIA/stroke), suggested prophylactic therapeutic range is an INR of 2.5-3.5. Blood specimen (specimen) BLOOD SPECIMEN / Unknown 08/19/2016 12:16 PM CDT 08/19/2016 1:00 PM CDT Narrative [facility] - 08/19/2016 1:22 PM CDT Is patient on Heparin, Argatroban or Dabigatran?->N Sterling Miguel MD LAB - COAGULATION OR DERABLES Performing Organization Address [facility] Co de Phone Number [address] [phone] * FIBRINOGEN ACTIVITY (08/19/2016 12:16 PM CDT) Fibrinogen Clauss 392 200 - 400 mg/dL [facility] Blood specimen (specimen) BLOOD SPECIMEN / Unknown 08/19/2016 12:16 PM CDT 08/19/2016 1:00 PM CDT Sterling Miguel MD LAB - COAGULATION OR DERABLES [address] [phone] * XR PANOREX (08/19/2016 9:12 AM CDT) Anatomical Region Laterality Modality Head Other Impressions 08/19/2016 10:17 AM CDT IMPRESSION: 1. No evidence of periapical abscess. 2. Periodontal disease with multiple dental caries. Dictated by Kee Brown MD (radiology tech). This report was approved by Afshin Brown [...] dental caries. Dictated by Kee Brown MD (radiology tech). This report was approved by Afshin Brown M.D. on 08/19/2016 10:11AM . I, Dr. JITENDRA DE LEÓN M.D. have personally reviewed and interpreted thisexamination/study. This report was electronically signed by JITENDRA DE LEÓN M.D. on 08/19/201610:17 AM . Sterling Miguel MD DIAGNOSTIC IMAGING O RDERABLES * PROC LEXISCAN CARDIOLYTE STRESS TST (08/05/2016 8:58 AM CDT) Narrative [facility] - 08/05/2016 8:58 AM CDT Patient Name: Xavier Sosa : 1950 CPT Codes: 65420 Study:Pharmacologic Stress Myocardial Perfusion-One Day Protocol Date [...] Name: Xavier Sosa : 1950 CPT Codes: 38470 Study:Pharmacologic Stress Myocardial Perfusion-One Day Protocol Date [...] Report: 08/05/16 Yoni Young CD ECG ORDERABLES [facility] * PROC STRESS TEST EXERCISE (2016 4:25 PM CDT) Narrative [facility] - 2016 4:25 PM CDT [facility] Nuclear Cardiology Department Myocardial Perfusion Imaging Pharmacological [...] Note Provider, MD Ana Rosa - 05/07/2018 [facility] Nuclear Cardiology Department Myocardial Perfusion Imaging Pharmacological [...] Young MD Yoni Young CD ECG ORDERABLES [facility] * PFT-LAB (2016 2:54 PM CDT) Impressions [facility] - 2016 2:54 PM CDT [facility] DEPARTMENT OF PULMONARY, CRITICAL CARE, AND [...] of Pulmonary, Critical Care, & Sleep Medicine [facility] I have personally reviewed pulmonary function test data and finding. I concur with fellow's note. Saba Wetzel MD Narrative Procedure Note Provider, MD Ana Rosa - 05/07/2018 IMPRESSION [facility] DEPARTMENT OF PULMONARY, CRITICAL CARE, AND [...] of Pulmonary, Critical Care, & Sleep Medicine [facility] I have personally reviewed pulmonary function test data and finding. Iconcur with fellow's note. Saba Wetzel MD Ina Boyer MD RESPIRATORY THERAP Y ORDERABLES Performing Organization Address City/[facility]/ZIP Co de Phone Number [facility] * ECHO EDWARDO W POSS CARDIOVERSION (07/16/2016 12:00 AM CDT) Anatomical Region Laterality Modality Other 07/16/2016 Yoni Young CD ECHOCARDIOGRAPHY RAD IANT * HIV-1 HIV-2 ANTIGEN/ANTIBODY (07/08/2016 11:06 AM CDT) [facility] HIV Antigen/Antibod y 1 & 2 Non-reacti ve Non-react mariusz [facility] Comment: Neither HIV-1 p24 Antigen nor HIV-1/HIV-2 Antibodies are detected. Blood specimen (specimen) BLOOD SPECIMEN / Unknown 07/08/2016 11:06 AM CDT 07/08/2016 11:38 AM CDT Leona Tay PROGRAM DIRECTOR-TRICHOLOGIST LAB - HEMATO LOGY ORDERABLES [address] [phone] * NICOTINE METABOLITE URINE (07/08/2016 11:06 AM CDT) Pathologist [facility] Cotinine Negative Cutoff=30 0 ng/mL [facility] ([facility]) Comment Drug Screen Comment [facility] ([facility]) Comment: This assay provides a preliminary unconfirmed analytical test result that may be suitable for the clinical management of patients in certain situations. For workplace drug testing programs, preliminary positive findings should always be confirmed by an alternative method. Some vckq-wzh-zguridy medications, as well as adulterants, may cause inaccurate results. Screen Only testing does not meet the [employer] Forensic Urine Drug Testing Program requirements as a forensic urine drug test for workplace testing. All clients must ensure that their testing program conforms to applicable state and federal laws and employment agreements. Urine specimen (specimen) URINE SPECIMEN OBTAINED BY CLEAN CATCH PROCEDURE / Unknown 07/08/2016 11:06 AM CDT 07/08/2016 12:[address] [facility]) - 07/09/2016 7:07 PM CDT Performed at: 01 - [address] [id number] Manager Military: Garrick Baez MD, Phone: [phone] Performed at: 02 - [address] [id number] Manager Military: Maycol Coronado PhD, Phone: [phone] Ina Boyer MD LAB - URINE CHEMIS TRY ORDERABLES Performing Organization Address City/State/[facility] Co de Phone Number [facility]) * DRUG ABUSE PANEL 10-20+ETHANOL URINE NO CONFIRM (07/08/2016 11:06 AM CDT) Pathologist [facility] Amphetamines Screen Urine Negative Negative: < 1000 ng/mL [facility] Barbiturates Screen Urine Negative Negative: < 200 ng/mL [facility] Benzodiazepine Screen Urine Negative Negative: < 200 ng/mL [facility] Opiates Urine Negative Negative: < 300 ng/mL [facility] Cocaine Metabolites Urine Negative Negative: < 300 ng/mL [facility] Phencyclidine Screen Urine Negative Negative: < 25 ng/ml [facility] Cannabinoids Screen Urine Negative Negative: <50 ng/mL [facility] Methadone Screen Urine Negative Negative: < 300 ng/mL [facility] Urine specimen (specimen) URINE / Unknown 07/08/2016 11:06 AM CDT 07/08/2016 12:10 PM CDT Narrative [facility] - 07/08/2016 12:37 PM CDT The Urine Toxicology Screening Panel does not screen for Propoxyphene, Meprobamate, Carisoprodol, Trazodone, qblx-mpw-pnjxgvi medications and/or volatiles (Acetone, Isopropanol, Methanol or Ethylene Glycol). Ethanol, Salicylate, Acetaminophen, Tricyclic Antidepressants and several therapeutic drugs may be individually assayed in serum or plasma specimen. Toxicology testing by the [facility] is an aid to medical diagnosis and treatment of patients. No documented chain of custody was maintained. Results are intended to be used for clinical purposes only. Ina Boyer MD LAB - URINE CHEMIS TRY ORDERABLES Performing Organization Address City/[facility]/ZIP Co de Phone Number [address] [phone] * TRIGLYCERIDES BLOOD (07/08/2016 11:06 AM CDT) Pathologist [facility] Triglycerides 61 <150 mg/dL [facility] Comment: ATP III Classification of Triglycerides: <150 mg/dL: Normal 150 - 199 mg/dL: Borderline High 200 - 400 mg/dL: High >500 mg/dL: Very High Blood specimen (specimen) BLOOD SPECIMEN / Unknown 07/08/2016 11:06 AM CDT 07/08/2016 11:38 AM CDT Leona Tay APRN-TRICHOLOGIST LAB - [place] [address], [facility] [phone] * HEPATITIS C ANTIBODY (07/08/2016 11:06 AM CDT) Hepatitis C Antibody Non-react mariusz Non-reac tive [facility] Comment: Hepatitis C Antibody screen indicates [...] CDT 07/08/2016 11:38 AM CDT Leona Tay PROGRAM DIRECTOR-TRICHOLOGIST LAB - CHEMIS TRY ORDERABLES Performing Organization Address City/State/[facility] Co de Phone Number [address] [phone] * XR LUMBAR SPINE 2 OR 3VW [...] D2+D3 BY TANDEM MASS (01/15/2016 9:10 AM LIFE ADVISOR) Only the most recent of2 resultswithin the time period is included. Vitamin D, 25 Hydroxy Total 49 30 - 100 ng/mL [facility]) Comment: Vitamin D Status 25-OH Vitamin D: Deficiency: <20 ng/mL Insufficiency: 20 - 29 ng/mL Optimal: > or = 30 ng/mL For 25-OH Vitamin D testing on patients on D2-supplementation and patients for whom quantitation of D2 and D3 fractions is required, the QuestAssureD(TM) 25-OH VIT D, (D2,D3), LC/MS/MS is recommended: order code 40131 (patients >2yrs). For more information on this test, go to: http://education.[employer]faq/EPN239 (This link is being provided for informational/educational purposes only.) REPORT COMMENT: FASTING:NO Test Performed at: [employer] [address] [place] [address] EUGENE REYNOSO DO,MPH Blood specimen (specimen) BLOOD SPECIMEN / Unknown 01/15/2016 9:10 AM LIFE ADVISOR 01/15/2016 9:11 AM LIFE ADVISOR Ina Boyer MD LAB - CHEMISTRY OR DERABLES Performing Organization Address [facility] Co de Phone Number [facility]) * VISCOSITY (01/15/2016 9:10 AM LIFE ADVISOR) Only the most recent of15 resultswithin the time period is included. Viscosity 1.6 1.5 - 1.9 Relative to H2O [facility]) Comment: Test Performed at: [employer] [address] [place] [address] BARBARA WILL MD PHD 01/15/2016 9:10 AM LIFE ADVISOR 01/15/2016 9:11 AM LIFE ADVISOR Ina Boyer MD LAB - HEMATOLOGY O RDERABLES Performing Organization Address [facility] Co de Phone Number [facility]) * VITAMIN B12 (01/07/2016 9:51 AM LIFE ADVISOR) Only the most recent of2 resultswithin the time period is included. Vitamin B12 566 200 - 1,100 pg/mL [facility]) Comment: REPORT COMMENT: FASTING:NO Test Performed at: [employer] [address] [place] [address] EUGENE REYNOSO DO,MPH Blood specimen (specimen) BLOOD SPECIMEN / Unknown 01/07/2016 9:51 AM LIFE ADVISOR 01/07/2016 9:52 AM LIFE ADVISOR Ina Boyer MD LAB - CHEMISTRY OR DERABLES [facility] ([facility]) * LAB HISTORICAL RESULTS-ONBASE (12/18/2015) 12/18/2015 Narrative [facility] - 01/29/2016 9:10 AM LIFE ADVISOR Historical Provider LAB - CHEMISTRY O RDERABLES Performing Organization Address City/[facility] Co de Phone Number [facility] [address] [place] [address], [facility] * FACTOR VIII RISTOCETIN COFACTOR (11/14/2015 10:07 AM LIFE ADVISOR) Ristocetin Cofactor 85 50 - 210 U/dL [facility] Comment: Biologic population variability within [...] BLOOD SPECIMEN / Unknown 11/14/2015 10:07 AM LIFE ADVISOR 11/14/2015 10:30 AM LIFE ADVISOR Ina Boyer MD LAB - COAGULATION ORDERABLES [address] [phone] * (ABNORMAL) FOLATE RBC (06/20/2015 10:01 AM CDT) Folate Hemolysate 489.9 Not Estab. ng/mL [facility] ([facility]) Hematocrit 37.1(L) 37.5 - 51.0 % [facility] ([facility]) Folate RBC 1320 499 - 1504 ng/mL [facility] ([facility]) Comment: Effective July 16, 2015 the reference interval for Folate, RBC will be changing to: > 498 Blood specimen (specimen) BLOOD SPECIMEN / Unknown 06/20/2015 10:01 AM CDT 06/20/2015 10:[address] [facility] ([facility]) - 06/21/2015 3:24 PM CDT Performed at: [address] [id number] Manager Military: Maycol Coronado PhD, Phone: [phone] Leona Sina Tay PROGRAM DIRECTOR-TRICHOLOGIST LAB - CHEMIS TRY ORDERABLES [facility] ([facility]) * MRI LUMBAR SPINE WWO CONTRAST (03/21/2015 [...] of4 resultswithin the time period is included. [facility] Reference Lab Results SEE SCANNED REPORT [facility] REF LAB NON INTERF Other (qualifier value) BONE MARROW SPECIMEN / Unknown 03/16/2015 1:15 PM CDT 03/16/2015 2:09 PM CDT Ina Boyer MD LAB SEND OUT Performing Organization Address City/[facility]/ZIP Co de Phone Number [facility] REF LAB NON INTERF * CRYOGLOBULIN QUALITATIVE (03/15/2015 12:02 PM CDT) Only the most recent of2 resultswithin the time period is included. Pathologist [facility] Cryoglobulin Qualitative Negative Negative [facility] Blood specimen (specimen) BLOOD SPECIMEN / Unknown 03/15/2015 12:02 PM CDT 03/19/2015 12:21 PM CDT Ina Boyer MD LAB - CHEMISTRY OR DERABLES Performing Organization Address [facility] Co de Phone Number [address] [phone] * ALDOLASE (03/15/2015 10:42 AM CDT) [facility] Aldolase 4.1 3.3 - 10.3 U/L [facility] Blood specimen (specimen) BLOOD SPECIMEN / Unknown 03/15/2015 10:42 AM CDT 03/15/2015 10:[address] [facility] - 03/16/2015 5:17 PM CDT Performed at: [address] [place] [address] [id number] Manager Military: Waqar Santos PhD, Phone: [phone] Teresa Mattson MD LAB - CHEMISTRY KIT CASTELLON Performing Organization Address City/[facility] Co de Phone Number [facility] ([facility]) * CK BLOOD (03/15/2015 10:42 AM CDT) Pathologist [facility] CK Total 34 30 - 200 Units/L [facility] Blood specimen (specimen) BLOOD SPECIMEN / Unknown 03/15/2015 10:42 AM CDT 03/15/2015 10:52 AM CDT Teresa Mattson MD LAB - CHEMISTRY KIT CASTELLON Performing Organization Address [facility]/ZIP Co de Phone Number [address] [phone] * (ABNORMAL) CELL COUNT CSF (01/24/2015 10:39 AM LIFE ADVISOR) Color Fluid Colorless Colorless, Straw [facility] Clarity Fluid Clear Clear [facility] Volume Fluid 7.0 mL [facility] WBC Calculation Fluid 1 0 - 5 /uL [facility] RBC Calculation 32(H) 0 /uL [facility] Xanthochromia Fluid Negative Negative [facility] Differential Manual Differential to follow. [facility] Spinal fluid (substance) CEREBROSPINAL FLUID SPECIMEN / Unknown 01/24/2015 10:39 AM LIFE ADVISOR 01/24/2015 10:39 AM LIFE ADVISOR Teresa Mattson MD LAB - BODY FLUID ORD JENNIFER Performing Organization Address [facility]/ZIP Co de Phone Number [address] [phone] * CELL COUNT W DIFF CSF (01/24/2015 10:39 AM LIFE ADVISOR) Spinal fluid (substance) CEREBROSPINAL FLUID SPECIMEN / Unknown 01/24/2015 10:39 AM LIFE ADVISOR Narrative [facility] - 01/24/2015 11:10 AM LIFE ADVISOR The following orders were created for panel order SPINAL FLUID CELL COUNT. Procedure Abnormality Status --------- ------ SPINAL FLUID CELL COUNT[[id number]] Abnormal Final result MANUAL DIFFERENTIAL FLUID[[id number]] Normal Final result Please view results for these tests on the individual orders. Teresa Mattson MD LAB - BODY FLUID ORD JENNIFER Performing Organization Address City/[facility]/ZIP Co de Phone Number [facility] [address] * (ABNORMAL) PROTEIN CSF (01/24/2015 10:38 AM LIFE ADVISOR) Protein CSF 66(H) 15 - 45 mg/dL [facility] Spinal fluid (substance) CEREBROSPINAL FLUID SPECIMEN / Unknown 01/24/2015 10:38 AM LIFE ADVISOR 01/24/2015 10:38 AM LIFE ADVISOR Teresa Mattson MD LAB - BODY FLUID ORD ERABLES [address] [phone] * GLUCOSE CSF (01/24/2015 10:38 AM LIFE ADVISOR) Glucose CSF 49 40 - 70 mg/dL [facility] Spinal fluid (substance) CEREBROSPINAL FLUID SPECIMEN / Unknown 01/24/2015 10:38 AM LIFE ADVISOR 01/24/2015 10:38 AM LIFE ADVISOR Teresa Mattson MD LAB - BODY FLUID ORD ERABLES Performing Organization Address City/State/[facility] Co de Phone Number [address] [phone] * FL LUMBAR PUNCTURE (01/24/2015 10:01 AM LIFE ADVISOR) Anatomical Region Laterality Modality Spine Other Impressions 01/24/2015 11:01 AM LIFE ADVISOR IMPRESSION: 1. Successful lumbar puncture under fluoroscopic guidance at L3-L4. This report was approved by Marli Fournier M.D. on 01/24/2015 10:48 AM . I, Dr. ROQUE RENO M.D. have personally reviewed and interpreted this examination/study. This report was electronically signed by ROQUE RENO M.D. on 01/24/2015 11:01 AM . Narrative 01/24/2015 11:01 AM LIFE ADVISOR EXAMINATION: Diagnostic lumbar puncture (LP) under fluoroscopic [...] The patient was then transferred to the adult caregiver unit for further observation and 3 hours [...] well. Thepatient was then transferred to the adult caregiver unit for furtherobservation and 3 hours of [...] ES * CULTURE CYTOMEGALOVIRUS (01/24/2015 9:40 AM LIFE ADVISOR) Cytomegalovirus Culture Comment [facility] ([facility]) Comment:No Cytomegalovirus i solated. Fluid specimen (specimen) BODY FLUID SPECIMEN / Unknown 01/24/2015 9:40 AM LIFE ADVISOR 01/24/2015 1:27 PM LIFE ADVISOR Narrative [facility] ([facility]) - 02/02/2015 6:20 AM LIFE ADVISOR Specimen Sources->Body Fluid CSF Performed at: [address] [place] [address] [id number] Manager Military: Eugene Boswell MD, Phone: [phone] Teresa Mattson MD LAB - MICROBIOLOGY O RDERABLES [facility]) * (ABNORMAL) OLIGOCLONAL BANDS CSF+BLOOD PANEL (01/24/2015 9:40 AM LIFE ADVISOR) Oligoclonal Bands CSF 0 0 - 1 Bands [facility]) IgG 214(L) 768 - 1632 mg/dL [facility]) Comment: REFERENCE INTERVAL: Immunoglobulin G Access complete set of age- and/or gender-specific reference intervals for this test in the [facility] Laboratory Test Directory ([email or web address]). IgG CSF 1.6 0.0 - 6.0 mg/dL [facility]) Albumin by Nephelometry 3320(L) 3500 - 5200 mg/dL [facility] ([facility]) Albumin CSF 42(H) 0 - 35 mg/dL [facility] ([facility]) Albumin Index 12.7(H) 0.0 - 9.0 ratio [facility] ([facility]) IgG Index 0.59 0.28 - 0.66 ratio [facility] ([facility]) IgG/Albumin Ratio CSF 0.04(L) 0.09 - 0.25 ratio [facility] ([facility]) Oligoclonal Bands CSF Negative Negative [facility] ([facility]) IgG Synthesis Rate CSF 1.3 <=8.0 mg/d [facility] ([facility]) Interpretation See Note [facility] ([facility]) Comment: Isoelectric focusing/immunofixation reveals no oligoclonal bands [...] FLUID SPECIMEN / Unknown 01/24/2015 9:40 AM LIFE ADVISOR 01/24/2015 10:08 AM LIFE ADVISOR Teresa Mattson MD LAB - BODY FLUID ORD [employer] [facility]) * ANGIOTENSIN CONVERTING ENZYME CSF (01/24/2015 9:40 AM LIFE ADVISOR) Angiotensin-Converti ng Enzyme CSF 1.9 0.0 - 2.5 U/L [facility] ([facility]) Comment: This test was developed and its performance characteristics determined by [employer]. The U.S. Food and Drug Administration has not approved or cleared this test; however, FDA clearance or approval is not currently required for clinical use. The results are not intended to be used as the sole means for clinical diagnosis or patient management decisions. Spinal fluid (substance) CEREBROSPINAL FLUID SPECIMEN / Unknown 01/24/2015 9:40 AM LIFE ADVISOR 01/24/2015 1:20 PM LIFE ADVISOR Teresa Mattson MD LAB - BODY FLUID ORD ERABLES [facility]) * CT GUIDED NEEDLE PLACEMENT (01/18/2015 9:45 AM LIFE ADVISOR) Only the most recent of2 resultswithin the time period is included. Anatomical Region Laterality Modality Abdomen Other Impressions 01/18/2015 4:31 PM LIFE ADVISOR Impression: Ultrasound guided biopsy of subcutaneous fat [...] 4:31 PM . 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 [facility]. IMPRESSION Impression: Ultrasound [...] CARDIAC STUDY WWO CONTRAST (01/15/2015 1:06 PM LIFE ADVISOR) Anatomical Region Laterality Modality Other Impressions 01/17/2015 5:07 PM LIFE ADVISOR IMPRESSION: 1. No evidence of delayed myocardial enhancement to suggest amyloidosis. Report dictated by Chely Haynes M.D. (resident). This report was approved by Chely Haynes M.D. on 01/17/2015 10:[address] Yue Oleary M.D. have personally reviewed and interpreted this examination/study. This report was electronically signed by Yue KELSEY M.D. on 01/17/2015 5:07 PM . Narrative 01/17/2015 5:07 PM LIFE ADVISOR EXAMINATION: Cardiac MRI Morphology and Function without [...] * ACTH 60 MINUTES (01/08/2015 1:33 PM LIFE ADVISOR) Cortisol 60 Min 22.5 >=20.0 mcg/dL [facility] Blood specimen (specimen) BLOOD SPECIMEN / Unknown 01/08/2015 1:33 PM LIFE ADVISOR 01/08/2015 1:54 PM LIFE ADVISOR Ina Boyer MD LAB - CHEMISTRY OR DERABLES [address] [phone] * (ABNORMAL) ACTH 30 MINUTES (01/08/2015 1:10 PM LIFE ADVISOR) Pathologist [facility] Cortisol 30 Min 18.8(L) >=20.0 mcg/dL [facility] Blood specimen (specimen) BLOOD SPECIMEN / Unknown 01/08/2015 1:10 PM LIFE ADVISOR 01/08/2015 1:16 PM LIFE ADVISOR Ina Boyer MD LAB - CHEMISTRY OR DERABLES Performing Organization Address [facility] Co de Phone Number [facility] [address] [place] [address] * LAB MISCELLANEOUS TEST 3 (01/08/2015 12:00 PM LIFE ADVISOR) [facility] Reference Lab Results SEE SCANNED RESULT [facility] RE[facility] NON INTERF Other (qualifier value) 01/08/2015 12:00 PM LIFE ADVISOR 01/08/2015 12:45 PM LIFE ADVISOR Ina Boyer MD LAB - CHEMISTRY OR DERABLES Performing Organization Address [facility] de Phone Number [facility] REF [facility] NON INTERF * LAB MISCELLANEOUS TEST 2 (01/08/2015 11:19 AM LIFE ADVISOR) [facility] Reference Lab Results SEE SCANNED REPORT [facility] REF [facility] NON INTERF Other (qualifier value) 01/08/2015 11:19 AM LIFE ADVISOR 01/08/2015 12:06 PM LIFE ADVISOR Ina Boyer MD LAB - CHEMISTRY OR DERABLES Performing Organization Address [facility] Co de Phone Number [facility] REF LAB NON INTERF * ACTH CORTISOL BASELINE (01/08/2015 10:30 AM LIFE ADVISOR) [facility] Cortisol Baseline 9.4 No Reference Range Established mcg/dL [facility] Blood specimen (specimen) BLOOD SPECIMEN / Unknown 01/08/2015 10:30 AM LIFE ADVISOR 01/08/2015 12:06 PM LIFE ADVISOR Ina Boyer MD LAB - CHEMISTRY OR DERABLES [address] [phone] * GM1 IGG/IGM ANTIBODY PANEL (01/08/2015 10:30 AM LIFE ADVISOR) Anti-GM1 Antibody IgM <1:[address] [facility] ([facility]) Comment: Reference Range: Negative: < 1:100 titer Positive: => 1:100 titer Titers of less than 1:400 may not be clinically significant. We suggest clinical correlation to ascertain the significance of the low titers. Antibodies against glycolipids (GM1, GD1a, GD1b, GQ1b, asialo GM1, and sulfatides) are present in patients with Guillain-[place] syndrome (GBS), IgM paraproteinemic neuropathy, and chronic [...] and performance parameters have been validated by [employer] This test has not been approved by the U.S. Food and Drug Administration (FDA); however, US FDA approval is not required for clinical use. It is not intended that clinical diagnosis and patient management decisions be made using these results alone. This test has been validated using serum samples. The oncology navigator has not determined the efficacy of this test when performed on CSF, plasma, joint or pleural fluid specimens. The performance characteristics of this test were determined by [employer] Anti-GM1 Antibody IgG <1:100 titer [facility] ([facility]) Comment: Reference Range: Negative: < 1:100 titer Positive: => 1:100 titer Blood specimen (specimen) BLOOD SPECIMEN / Unknown 01/08/2015 10:30 AM LIFE ADVISOR 01/08/2015 12:06 [address] [facility] ([facility]) - 01/17/2015 9:18 AM LIFE ADVISOR Performed at: 01 - [employer] [address] [place] [address] [id number] Manager Military: Pedro Barber PhD, Phone: [phone] Ina Boyer MD LAB - CHEMISTRY OR DERABLES Performing Organization Address [facility] Co de Phone Number [facility] * TROPONIN I (01/08/2015 10:30 AM LIFE ADVISOR) Troponin I <0.032 <0.032 ng/mL [facility] Blood specimen (specimen) BLOOD SPECIMEN / Unknown 01/08/2015 10:30 AM LIFE ADVISOR 01/08/2015 12:20 PM LIFE ADVISOR Ina Boyer MD LAB - CHEMISTRY OR DERABLES Performing Organization Address [facility] Co de Phone Number [address] [phone] * (ABNORMAL) [id number] BLOOD (01/08/2015 10:30 AM LIFE ADVISOR) Beta-2 Microglobulin 5.2(H) 1.0 - 2.6 mg/L [facility] Blood specimen (specimen) BLOOD SPECIMEN / Unknown 01/08/2015 10:30 AM LIFE ADVISOR 01/08/2015 12:01 PM LIFE ADVISOR Ina Boyer MD LAB - CHEMISTRY OR DERABLES Performing Organization Address [facility] Co de Phone Number [address] [phone] * IRON BLOOD (01/08/2015 10:30 AM LIFE ADVISOR) Iron 57 50 - 175 mcg/dL [facility] Blood specimen (specimen) BLOOD SPECIMEN / Unknown 01/08/2015 10:30 AM LIFE ADVISOR 01/08/2015 12:20 PM LIFE ADVISOR Narrative [facility] - 01/08/2015 1:31 PM LIFE ADVISOR For transferrin saturation from [facility] order this and Transferrin Ina Boyer MD LAB - CHEMISTRY OR DERABLES [address] [phone] * HEPATITIS B CORE ANTIBODY (01/08/2015 10:30 AM LIFE ADVISOR) HBc Antibody Total Non-reacti ve Non-reacti ve [facility] Blood specimen (specimen) BLOOD SPECIMEN / Unknown 01/08/2015 10:30 AM LIFE ADVISOR 01/08/2015 12:01 PM LIFE ADVISOR Ina Boyer MD LAB - CHEMISTRY OR DERABLES Performing Organization Address [facility] Co de Phone Number [address] [phone] * HEPATITIS B SURFACE ANTIGEN W RFLX CONFIRMATION (01/08/2015 10:30 AM LIFE ADVISOR) Hepatitis B Virus Surface Antigen Non-reacti ve Non-reacti ve [facility] Blood specimen (specimen) BLOOD SPECIMEN / Unknown 01/08/2015 10:30 AM LIFE ADVISOR 01/08/2015 12:01 PM LIFE ADVISOR Ina Boyer MD LAB - CHEMISTRY OR DERABLES Performing Organization Address [facility]/ZIP Co de Phone Number [address] [phone] * TSH (01/08/2015 10:30 AM LIFE ADVISOR) TSH 2.948 0.350 - 4.940 uIU/mL [facility] Blood specimen (specimen) BLOOD SPECIMEN / Unknown 01/08/2015 10:30 AM LIFE ADVISOR 01/08/2015 12:20 PM LIFE ADVISOR Leona Tay PROGRAM DIRECTOR-TRICHOLOGIST LAB - CHEMIS TRY ORDERABLES [address] [phone] * T4 FREE (01/08/2015 10:30 AM LIFE ADVISOR) T4 Free 1.1 0.7 - 1.5 ng/dL [facility] Blood specimen (specimen) BLOOD SPECIMEN / Unknown 01/08/2015 10:30 AM LIFE ADVISOR 01/08/2015 12:20 PM LIFE ADVISOR Leona Andino Jasvir PROGRAM DIRECTOR-TRICHOLOGIST LAB - CHEMIS TRY ORDERABLES Performing Organization Address City/[facility]/ZIP Co de Phone Number [address] [phone] * HAPTOGLOBIN (01/08/2015 10:30 AM LIFE ADVISOR) Haptoglobin 158 14 - 258 mg/dL [facility] Blood specimen (specimen) BLOOD SPECIMEN / Unknown 01/08/2015 10:30 AM LIFE ADVISOR 01/08/2015 12:01 PM LIFE ADVISOR Ina Boyer MD LAB - CHEMISTRY OR DERABLES Performing Organization Address City/[facility]/ZIP Co de Phone Number [address] [phone] Care Teams Supervisor Plasma Relationship Specialty Start Date End Date Billy Jalloh MD [address] [place] [address] [address] [place] [address] PCP - General 07/08/16 Jamie Arboleda MD [address] [place] [address] Pulmonary Disease 07/08/18 Ian Boyer MD [address] [place] [address] Hematology and Oncology 07/08/18 Yoni Young, SHERRILL [address] [place] [address] Cardiology 07/08/18 Vadim Xiong MD [address] [place] [address] Gastroenterology 12/02/18
--- OUTSIDE RECORDS SUMMARY | 2025-01-25 15:27 | XMS_ITS | Encounter Summary ---
Author Organization [facility] Address [address] [place] [address] Care Team Providers Care Windows Desktop Engineer Name Role Phone Billy Jalloh MD Primary Care Provider [phone] Jamie Arboleda MD Unavailable Ruben Park MD Unavailable Yoni Young Unavailable Vadim Xiong MD Unavailable [phone] Reason for Visit * Reason Onset Date Comments Question 07/13/2018 Encounter Details Date Type Department Care Team (Late st Contact Info) Description 07/13/2018 Telephone [facility] [address] [place], [place] [id number] Jamie Arboleda MD [address] OF PULMONARY/[place] [address] Question Social History Tobacco Use [...] Visit [facility] - Cardiology [address] [address] Clifford Nolan MD [address] [address] 03/27/2025 11:00 AM CDT Office Visit [facility] - Dermatology [address] [place] [address], [place] [phone] Rosie Quigley MD [address] [place] [address] 3 [place] [address] 03/30/2025 11:00 AM CDT Office Visit [facility] - Pulmonology [address] [place] [address], [place] [address] Jamie Arboleda MD [address] [facility] 2L DIV OF PULMONARY/[place] [address] 08/08/2025 10:45 AM CDT Office Visit [facility] - General Surgery [address] [facility], [place] [address] Irene Rojas MD [address] [facility] [address] [place] [address] documented as of this encounter Visit Diagnoses Not on filedocumented in this encounter Care Teams Windows Desktop Engineer Relationship Specialty Start Date End Date Billy Jalloh MD [facility] [address] [place] [address] PCP - General 07/08/16 Jamie Arboleda MD [address] [place] [address] Pulmonary Disease 07/08/18 Ruben Park MD [address] [place] [address] Hematology and Oncology 07/08/18 Yoni Young, SHERRILL [address] [place] [address] Cardiology 07/08/18 Vadim Xiong MD [address] [place] [address] Gastroenterology 12/02/18 documented as of this encounter
--- OUTSIDE RECORDS SUMMARY | 2025-01-25 15:27 | XMS_ITS | Encounter Summary ---
Author Organization [facility] Address [address] [facility] [place] [address] Care Team Providers Care Circulation Librarian Name Role Phone Billy Jalloh MD Primary Care Provider Jamie Arboleda MD Unavailable Ruben Park MD Unavailable [phone] Yoni Young CD Unavailable Vadim Xiong MD Unavailable [phone] Encounter Details Date Type Department Care Team (Late st Contact Info) Description 06/30/2019 Telephone [facility] [address] [place] [address] Dominic Buitrago MD [address] [place] [address] Social History Tobacco Use Types Packs/Day Years [...] Mr. Sosa. She can be reached at [phone]. documented in this encounter Plan of Treatment Upcoming Encounters Date Type Department Care Team (Late st Contact Info) Description 03/23/2025 11:00 AM CDT Office Visit [facility] - Cardiology [address] [address] Clifford Nolan MD [address] [address] [place] [address] 03/27/2025 11:00 AM CDT Office Visit [facility] - Dermatology [address] [place] [address], [place] [phone] Rosie Quigley MD [address] [place] [address] 3 [place] [address] 03/30/2025 11:00 AM CDT Office Visit [facility] - Pulmonology [address] [place] [address], [place] [phone] Jamie rAboleda MD [address] [facility] 2L DIV OF PULMONARY/[place] [address] 08/08/2025 10:45 AM CDT Office Visit [facility] - General Surgery [address] [facility], [place] [phone] Irene Rojas MD [address] [facility] [address] [place] [phone] documented as of this encounter Visit Diagnoses Not on filedocumented in this encounter Care Teams Circulation Librarian Relationship Specialty Start Date End Date Billy Jalloh MD [address] [place] [address] 23 [place] [address] PCP - General 07/08/16 Jamie Arboleda MD [address] [place] [address] Pulmonary Disease 07/08/18 Ruben Park MD [address] [place] [address] Hematology and Oncology 07/08/18 Yoni Young, SHERRILL [address] [place] [address] Cardiology 07/08/18 Vadim Xiong MD [address] [place] [address] Gastroenterology 12/02/18 documented as of this encounter
--- OUTSIDE RECORDS SUMMARY | 2025-01-25 15:27 | XMS_ITS ---
Author Organization [facility] Address [address] 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 Other Current Plans SUPPORT (IMMUNE GLOBULIN 10%) (IVIG)* Plan Start Date:06/28/2018 Plan Provider:Leona Tay APRN-CLINIC SPECIALIST Linked Problems Hypogammaglobulinemia, acqui red (HCC) Treatment [...] treatments are documented for this patient in [facility]. Treatments may have been administered in another system. Lifetime Dose Tracking * Chemical Lifetime Dose Automatic Entry Manual Entr y Air Kerma 443 mGy 0 mGy 443 mGy
--- OUTSIDE RECORDS SUMMARY | 2025-01-25 15:27 | XMS_ITS ---
Author Organization [facility] Address [address] [place] [address] Phone Care Team Providers Care Farmer [employer] Name Role Phone Billy Jalloh MD Primary Care Provider [phone] [place] Huiin D DO Unavailable [phone] Active Problems Problem Noted Date Diagnosed [...]
--- OUTSIDE RECORDS SUMMARY | 2025-01-25 15:27 | XMS_ITS | Encounter Summary ---
Author Organization [facility] Address [address] [facility] [place] [address] Care Team Providers Care Parts Professional Name Role Phone Billy Jalloh MD Primary Care Provider Jamie Arboleda MD Unavailable [phone] Ruben Park MD Unavailable Yoni Young Unavailable Vadim Xiong MD Unavailable [phone] Encounter Details Date Type Department Care Team (Latest Contact Info) Description 01/05/2017 Lab Requisition [facility] - Lab Cytogenetics 14[address] [place] [address] Nicolas Arevalo MD [address] [place] [address] Waldenstrom macroglobulinemia (HCC) Social History Tobacco Use [...] Description 03/23/2025 11:00 AM CDT Office Visit [facility] - Cardiology 10[address] [facility], [facility] 1120 [place] [address] Clifford Nolan MD [address] [facility] [place] [address] [place] [address] 03/27/2025 11:00 AM CDT Office Visit [facility] - Dermatology [address] [place] [address], [place] [phone] Rosie Quigley MD [address] [place] [address] 3L [place] [address] 03/30/2025 11:00 AM CDT Office Visit [facility] - Pulmonology [address] [place] [address], [place] [phone] Jamie Arboleda MD [address] [place] [address] 2L DIV OF PULMONARY/[place] [address] 08/08/2025 10:45 AM CDT Office Visit [facility] - General Surgery [address] [place] [address], [place] [address] Irene Rojas MD [address] [place] [address] [address]2 [place] [address] documented as of this encounter Procedures Procedure Name Priority Date/Time Associated Diagnosis Comments CYTOGENETICS CANCER PANEL Routine 01/05/2017 2:00 PM SERVICE SHOP FOREMAN Waldenstrom macroglobulinemia documented in this encounter Results * CYTOGENETICS CANCER PANEL (01/05/2017 2:00 PM SERVICE SHOP FOREMAN) Indication for Study Waldenstrom Macroglobulinemia 10:45 PM SERVICE SHOP FOREMAN [facility] CYTOGENOMIC [facility] Results Cytogenetics Analysis and count of 6 cells (6 cells karyotyped, GTL-banding) from 72-hour Interleukin stimulated bone marrow cultures showed the following chromosome pattern: 46,XY[6] 7 10:45 PM [facility] CYTOGENOMIC [facility] Interpretation Male chromosome [...] prior abnormality was performed. 7 10:45 PM [facility] CYTOGENOMIC [facility] Historical Cytogenomic Report [id number] on 2016 Results Analysis and count of 20 cells (8 cells karyotyped, GTL-banding) from 24-hour unstimulated and 72-hour Interleukin stimulated bone marrow cultures showed the following chromosome pattern: 46,XY[20] . Interpretation Male chromosome analysis showing 46,XY with no evidence for any clonal structural or numerical abnormality in all cells examined at 400 average band resolution. at 1321 . Historical Cytogenomic Report [id number] on 03/22/2015 Results Analysis and count of 20 cells (7 cells karyotyped, GTL-banding) from 72-hour Interleukin stimulated bone marrow cultures showed the following chromosome pattern: 46,XY[20] Interpretation Male chromosome analysis showing 46,XY with no evidence for any clonal structural or numerical abnormality in all cells examined at 400 average band resolution. at 0724 BF [id number] from 01/08/2015 Results Analysis of 200 interphase [...] average band resolution. . 7 10:45 PM [facility] CYTOGENOMIC [facility] Client Information [facility] - [id number] [facility] Lab #: [id number] CHRFISH, [id number] CHROBM 7 10:45 PM [facility] CYTOGENOM[facility] Embedded Images 7 10:45 PM [facility] CY[facility]OM[facility] Other BONE MARROW SPECIMEN / Unknown 01/05/2017 2:00 PM SERVICE SHOP FOREMAN 01/05/2017 3:[address] [facility] Nicolas Arevalo MD LAB - PATHOLOGY/CYTO LOGY ORDERABLES [facility] CYTOGENOMIC LAB [address] [facility] [place] [address] documented in this encounter Visit Diagnoses Diagnosis Waldenstrom macroglobulinemia Macroglobulinemia documented in this encounter Care Teams Parts Professional Relationship Specialty Start Date End Date Billy Jalloh MD [address] [address] [address] [place] [phone] PCP - General 07/08/16 Jamie Arboleda MD [address] [place] [address] Pulmonary Disease 07/08/18 Ruben Park MD [address] [place] [address] Hematology and Oncology 07/08/18 Yoni Young, SHERRILL [address] [place] [address] Cardiology 07/08/18 Vadim Xiong MD [address] [place] [address] Gastroenterology 12/02/18 documented as of this encounter
--- OUTSIDE RECORDS SUMMARY | 2025-01-25 15:27 | XMS_ITS | Encounter Summary ---
Author Organization [facility] Address [address] [facility] [place] [address] Care Team Providers Care Vp Cardiovascular Name Role Phone Billy Jalloh MD Primary Care Provider [phone] Jamie Arboleda MD Unavailable Ruben Park MD Unavailable Yoni Young Unavailable Vadim Xiong MD Unavailable [phone] Encounter Details Date Type Department Care Team (Late st Contact Info) Description 11/07/2024 Telephone [facility] - Pulmonology [address] [place] [address], [place] [address] Jamie Arboleda MD [address] [place] [address] 2L DIV OF PULMONARY/[place] [address] Social History Tobacco Use Types Packs/Day Years [...] to try next. Patient Call Back Number: [phone] LOGY TEACHER documented in this encounter Plan of Treatment Upcoming Encounters Date Type Department Care Team (Late st Contact Info) Description 03/23/2025 11:00 AM CDT Office Visit [facility] - Cardiology [address] [facility] [place] [address] [place] [address] Clifford Nolan MD [address] [facility], [facility] 1[address] [place] [address] 03/27/2025 11:00 AM CDT Office Visit [facility] - Dermatology [address] [place] [address], [place] [address] Rosie Quigley MD [address] [place] [address] [address] [place] [address] 03/30/2025 11:00 AM CDT Office Visit [facility] - Pulmonology [address] [place] [address], [place] [address] Jamie Arboleda MD [address] [place] [address] 2L DIV OF PULMONARY/[place] [address] 08/08/2025 10:45 AM CDT Office Visit [facility] - General Surgery [address] [place] [address], [place] [address] Irene Rojas MD [address] [place] [address] [address] [place] [address] documented as of this encounter Visit Diagnoses Not on filedocumented in this encounter Care Teams Vp Cardiovascular Relationship Specialty Start Date End Date Billy Jalloh MD [address] [place] [address] PCP - General 07/08/16 Jamie Arboleda MD [address] [place] [address] Pulmonary Disease 07/08/18 Ruben Park MD [address] [place] [address] Hematology and Oncology 07/08/18 Yoni Young CD [address] [place] [address] Cardiology 07/08/18 Vadim Xiong MD [address] [id number] Gastroenterology 12/02/18 documented as of this encounter
--- OUTSIDE RECORDS SUMMARY | 2025-01-25 15:27 | XMS_ITS | Clinical Summary ---
Author Organization [facility] Address [address] [place] [address] Care Team Providers Care Repair Armature Winder Name Role Phone Billy Jalloh MD Primary Care Provider [phone] Social History Tobacco Use Types Packs/Day Years [...] age to complete this topic Insurance MEDICARE [facility] Care Teams Repair Armature Winder Relationship Specialty Start Date End Date Billy Jalloh MD [address] [address] PCP - General INTERNAL MEDICINE 03/08/19
--- OUTSIDE RECORDS SUMMARY | 2025-01-25 15:27 | XMS_ITS | Encounter Summary ---
Author Organization [facility] Address [address] [place] [address] Care Team Providers Care Materials Recycler Name Role Phone Billy Jalloh MD Primary Care Provider [phone] Jamie Arboleda MD Unavailable [phone] Ruben Park MD Unavailable [phone] Yoni Young CD Unavailable [phone] Vadim Xiong MD Unavailable [phone] Reason for Visit * Reason Onset Date Comments Surgical Followup 07/21/2019 pt's [facility] call and wanted to let someone konw that he still has one suture left in the rectal area - does that need to be removed Encounter Details Date Type Department Care Team (Late st Contact Info) Description 07/21/2019 Telephone [facility] [address] [place] [address] Dominic Buitrago MD [address] [place] [address] Surgical Followup (pt's home health [...] [facility] Cardiology [address] [phone] Clifford Nolan MD [address] [facility] [place] [address] [place] [address] 03/27/2025 11:00 AM CDT Office Visit [facility] - Dermatology [facility]5 [facility] [place] [address] Rosie Quigley MD [address] [place] [address] 3L [place] [address] 03/30/2025 11:00 AM CDT Office Visit [facility] - Pulmonology [address] [place] [address], [place] [address] Jamie Arboleda MD [address] [place] [address] 2L DIV OF PULMONARY/[place] [address] 08/08/2025 10:45 AM CDT Office Visit [facility] - General Surgery [address] [place] [address], [place] [address] Irene Rojas MD [address] [place] [address] [address] [place] [address] documented as of this encounter Visit Diagnoses Not on filedocumented in this encounter Care Teams Materials Recycler Relationship Specialty Start Date End Date Billy Jalloh MD [address] [place] [address] PCP - General 07/08/16 Jamie Arboleda MD [address] [place] [address] Pulmonary Disease 07/08/18 Ruben Park MD [address] [place] [address] Hematology and Oncology 07/08/18 Yoni Young CD [address] [place] [address] Cardiology 07/08/18 Vadim Xiong MD [address] [place] [address] Gastroenterology 12/02/18 documented as of this encounter
--- OUTSIDE RECORDS SUMMARY | 2025-01-25 15:27 | XMS_ITS | Encounter Summary ---
Author Organization [facility] Address [address] [facility] [place] [address] Care Team Providers Care Stock Trader Name Role Phone Billy Jalloh MD Primary Care Provider Jamie Arboleda MD Unavailable Ruben Park MD Unavailable Yoni Young Unavailable [phone] Vadim Xiong MD Unavailable [phone] Encounter Details Date Type Department Care Team (Latest Contact Info) Description 07/28/2016 Lab Requisition [facility] - Lab Cytogenetics [address] [place] [address] Nicolas Arevalo MD [address] [place] [address] Waldenstrom macroglobulinemia (HCC) Social History Tobacco Use [...] 03/23/2025 11:00 AM CDT Office Visit [facility] - Cardiology 1034 [facility] [place] [address] [place] [address] Clifford Nolan MD 1034 [facility], [facility] 1120 [place] [address] 03/27/2025 11:00 AM CDT Office Visit [facility] - Dermatology [address] [place] [address], [place] [address] Rosie Quigley MD [address] [place] [address] 3L [place] [address] 03/30/2025 11:00 AM CDT Office Visit [facility] - Pulmonology [address] [place] [address], [place] [address] Jamie Arboleda MD [address] [place] [address] 2L DIV OF PULMONARY/[place] [address] 08/08/2025 10:45 AM CDT Office Visit [facility] - General Surgery [address] [place] [address], [place] [address] Irene Rojas MD [address] [place] [address] [address] [place] [address] documented as of this encounter Procedures Procedure Name Priority Date/Time Associated Diagnosis Comments CYTOGENETICS CANCER PANEL Routine 07/28/2016 10:00 AM CDT documented in this encounter Results * CYTOGENETICS CANCER PANEL (07/28/2016 10:00 AM CDT) Indication for Study Waldenstrom Macroglobulinemia 6 1:21 PM CDT [facility] Results Cytogenetics Analysis and count of 20 cells (8 cells karyotyped, GTL-banding) from 24-hour unstimulated and 72-hour Interleukin stimulated bone marrow cultures showed the following chromosome pattern: 46,XY[20] 6 1:21 PM [facility] CYTOGENOMIC LAB Interpretation Male chromosome analysis showing 46,XY with no evidence for any clonal structural or numerical abnormality in all cells examined at 400 average band resolution. 6 1:21 PM [facility] CYTOGENOMIC [facility] Electronically signed by Paula Umaña, PhD [facility] [place] on 2016 at 1:21 PM Historical Cytogenomic Report [id number] on 03/22/2015 Results Analysis and count of 20 cells (7 cells karyotyped, GTL-banding) from 72-hour Interleukin stimulated bone marrow cultures showed the following chromosome pattern: 46,XY[20] Interpretation Male chromosome analysis showing 46,XY with no evidence for any clonal structural or numerical abnormality in all cells examined at 400 average band resolution. Electronically signed by Paula Umaña, PhD [facility] [place] [place] on 03/22/2015 at 0724 BF [id number] from 01/08/2015 Results Analysis of 200 interphase [...] average band resolution. 6 1:21 PM CDT [facility] CYTOGENOMIC LAB Client Information [facility] - [id number] [facility] lab numbers: [id number] ; [id number] 6 1:21 PM CDT [facility] CYTOGENOMIC [facility] Other BONE MARROW SPECIMEN / Unknown 07/28/2016 10:00 AM CDT 07/28/2016 1:24 PM CDT Nicolas Arevalo MD LAB - PATHOLOGY/CYTO LOGY ORDERABLES Performing Organization Address City/State/[facility] Co de Phone Number [facility] CYTO[facility]OMIC [facility] [address] [place] [address] documented in this encounter Visit Diagnoses Diagnosis Waldenstrom macroglobulinemia Macroglobulinemia documented in this encounter Care Teams Stock Trader Relationship Specialty Start Date End Date Billy Jalloh MD [address] [place] [address] 23 [place] [phone] PCP - General 07/08/16 Jamie Arboleda MD [address] [place] [address] Pulmonary Disease 07/08/18 Ruben Park MD [address] [place] [address] Hematology and Oncology 07/08/18 Yoni Young, SHERRILL [address] [place] [address] Cardiology 07/08/18 Vadim Xiong MD [address] [place] [address] Gastroenterology 12/02/18 documented as of this encounter
--- OUTSIDE RECORDS SUMMARY | 2025-01-25 15:27 | XMS_ITS | Encounter Summary ---
Author Organization [facility] Address [address] [facility] [place] [address] Care Team Providers Care Harness And Bag Inspector Name Role Phone Billy Jalloh MD Primary Care Provider Jamie Arboleda MD Unavailable Ruben Park MD Unavailable [phone] Yoni Young Unavailable [phone] Vadim Xiong MD Unavailable [phone] Encounter Details Date Type Department Care Team (Late st Contact Info) Description 04/20/2023 Telephone [facility] - Centralized Scheduling [address] [place] [address] Jamie Arboleda MD [address] OF PULMONARY/[place] [address] Social History Tobacco Use Types Packs/Day Years [...] that we already sent that order to [facility],if I read this call right she wanted to stop services with [facility]. Advised to call back if information is incorrect. Jeffrey Bone Flexible Nanny III Pulmonary Critical Care & Sleep Disorders documented in this encounter Plan of Treatment Upcoming Encounters Date Type Department Care Team (Late st Contact Info) Description 03/23/2025 11:00 AM CDT Office Visit [facility] - Cardiology [address] [place] [address] Clifford Nolan MD [address] [place] [address] 03/27/2025 11:00 AM CDT Office Visit [facility] - Dermatology [address] [place] [address], [place] [address] Rosie Quigley MD [address] [place] [address] 3 [place] [address] 03/30/2025 11:00 AM CDT Office Visit [facility] - Pulmonology [address] [facility], [place] [address] Jamie Arboleda MD [address] [facility] 2L DIV OF PULMONARY/[place] [address] 08/08/2025 10:45 AM CDT Office Visit [facility] - General Surgery [address] [facility], [place] [address] Irene Rojas MD [facility]5 [facility] [address] [place] [address] documented as of this encounter Visit Diagnoses Not on filedocumented in this encounter Care Teams Harness And Bag Inspector Relationship Specialty Start Date End Date Billy Jalloh MD [address] [place] [address] 23 [place] [address] PCP - General 07/08/16 Jamie Arboleda MD [address] [place] [address] Pulmonary Disease 07/08/18 Ruben Park MD [address] [place] [address] Hematology and Oncology 07/08/18 Yoni Young CD [address] [place] [address] Cardiology 07/08/18 Vadim Xiong MD 0 [facility] [place] [address] Gastroenterology 12/02/18 documented as of this encounter
[2025-01-25 15:33] LABS: NT Pro B Type Natriuretic Pept 315 pg/mL (19.9-100)
[2025-01-25 16:49] VITALS: BP 103/61; PULSE 62; RESP 16; O2SAT 93
[2025-01-25 17:14] VITALS: BMI 26.9
[2025-01-25 17:15] VITALS: BP 135/63; PULSE 69; RESP 18; TEMP 36.2; O2SAT 98
--- NOTE | 2025-01-25 17:32 | ADMGEN ---
This patient, Xavier Sosa, was admitted to [facility] Room 331-01. Patient/family oriented to hospital policies and general routines including ID bracelet, bed and alarms, visiting hours, pain management, procedures, bathroom and other care routines, personal items, smoking policy, room service/diet, and visiting hours. Information on how to activate the Rapid Response Team has been discussed. Patient/Family are encouraged to report perceived risks to care and to ask questions if they do not understand what they are told or what they should do.
[2025-01-25 18:30] LABS: Add Urine Microscopic? YES; Appearance Urine Clear (Clear); Bacteria Urine None Seen /hpf; Bilirubin Urine Negative (Negative); Blood Urine Trace (Negative); Color Urine Yellow (Yellow); Glucose Urine UA Negative (Negative); Ketones Urine 1+ mg/dL (Negative); Leukocyte Esterase Ur Negative LEU/UL (Negative); Nitrate Urine Negative (Negative); Non Pathogenic Casts 0-2; Protein Urine Negative (Negative); Squamous Epithelial Cell Urine None Seen /hpf (Few); Urobilinogen Urine 0.2 mg/dL (<2.0); WBC Urine 0-5 /hpf (0-3)
[2025-01-25] MEDS: ATORVASTATIN 40 MG TABLET 80 MG PO (21:20)
[2025-01-25] MEDS: DOCUSATE SODIUM 100 MG CAPSULE PO (21:21)
[2025-01-25] MEDS: FLECAINIDE ACETATE 50 MG TABLET PO (21:21)
[2025-01-25] MEDS: FLECAINIDE ACETATE 100 MG TABLET PO (21:21)
[2025-01-25 22:00] VITALS: BP 102/64; PULSE 68; RESP 14; TEMP 36.6; O2SAT 94
[2025-01-26 05:45] VITALS: BP 111/50; PULSE 63; RESP 13; TEMP 36.3; O2SAT 96
[2025-01-26 06:49] LABS: Basophils Percent Auto 0.5 % (0.2-1.2); Eosinophils Absolute Auto 0.2 K/mm3 (0-0.3); Eosinophils Percent Auto 2.5 % (0-4.4); Hematocrit 36.2 % (42.0-52.0); Hemoglobin 11.8 g/dL (14.0-18.0); Immature Granulocyte Absolute 0.03 K/mm3 (0.00-0.031); Immature Granulocyte Percent A 0.5 % (0-0.5); Lymphocytes Absolute Auto 0.73 K/mm3 (0.9-3.2); Lymphocytes Percent Auto 12.1 % (18.3-44.2); Mean Corpuscular HGB Conc 32.6 g/dl (32-36); Mean Corpuscular Hemoglobin 33.1 pg (26-34); Mean Corpuscular Volume 101.4 fl (80-100); Monocytes Absolute Auto 0.9 K/mm3 (0.1-0.6); Monocytes Percent Auto 14.6 % (2.6-8.5); Neutrophils Absolute Auto 4.2 K/mm3 (1.3-6.7); Neutrophils Percent Auto 69.8 % (45.5-73.1); Platelet Count Result 162 k/mm3 (150-375); Red Blood Count 3.57 M/mm3 (4.6-6.20); Red Cell Distribution Width 12.2 % (11.5-14.5)
[2025-01-26 07:00] LABS: INR 1.1; Prothrombin Time 14.3 Seconds (11.1-14.7)
[2025-01-26 07:01] LABS: Partial Thromboplastin Time 28.2 Seconds (22.3-36.8)
[2025-01-26 07:05] LABS: Anion Gap 7 mmol/L (4-12); Blood Urea Nitrogen 23 mg/dL (9-20); Calcium 9.2 mg/dL (8.4-10.2); Carbon Dioxide 28 mmol/L (22-30); Chloride 100 mmol/L (98-107); Estimated CRCL calculation 50 ml/min; Estimated Glomerular Filt Rate 57; Glucose 98 mg/dL (65-110); Potassium 4.2 mmol/L (3.4-5.0); Sodium 135 mmol/L (137-145)
[2025-01-26] MEDS: FLUTICASONE/UMECLIDIN/VILANTER 200-62.5-25 MCG ELLIPTA 1 PUFF INHALATION (07:56)
[2025-01-26 08:00] VITALS: O2SAT 96
--- NOTE | 2025-01-26 08:01 | P.PNIM_ITS ---
Progress Note: A&P Assessment and Plan (1) Closed fracture of left hip: Qualifiers: Encounter type: initial encounter Qualified Code(s): S72.002A - Fracture of unspecified part of neck of left femur, initial encounter for closed fracture Code(s): S72.002A - Fracture of unspecified part of neck of left femur, initial encounter for closed fracture Status: Acute Assessment and Plan: * hip/pelvic XR: 1. Subcapital fracture of left femoral neck. 2. Mild osteoarthritis of the hips. * knee XR (L) and CXR negative for trauma or acute findings * orthopedics consulted, awaiting formal recs * tentative surgery date 01/27, patient on Eliquis (holding, repeat coags tomorrow) * orthopedist consulted Cardiology and Nephrology due to history of AFib and possible recent onset CKD but appears VICTOR HUGO resolved with IV fluids * EKG: SR 1st degree block 68 * NPO for possible surgery 01/27/2025 * analgesics and antiemetics p.r.n. * will need PT/OT postop * Can resume Eliquis post surgery (2) VICTOR HUGO (acute kidney injury): Code(s): N17.9 - Acute kidney failure, unspecified Status: Acute Assessment and Plan: * Cr peaked at 1.51 no HX orf CKD * Resolved with IV fluids Cr 1.24 * Would recommend discontinuing his hydrochlorothiazide * nephrology consulted by [facility] for evaluation pre-surgery (3) Atrial fibrillation: Code(s): I48.91 - Unspecified atrial fibrillation Status: Acute Assessment and Plan: * EKG SR 68 with first-degree block * will resume Eliquis post surgery and resume metoprolol * continuous cardiac monitoring * cardiology has been consulted ortho surgical clearance (4) Stage 3a chronic kidney disease: Code(s): N18.31 - Chronic kidney disease, stage 3a Status: Chronic Assessment and Plan: * Cr peaked at 1.51 around baseline * Resolved with IV fluids Cr 1.24 * nephrology consulted by ortho for evaluation pre-surgery cleared per Neph rology * From renal function post surgery Plan Code status: Full code per patient DVT prophylaxis: Eliquis post surgery/SCd's Stress ulcer prophylaxis: NA PT/OT notes: PT/OT post surgery Disposition: patient continues admission to the medical unit for a left hip fracture and will likely be for surgery tomorrow 01/27 PT/ OT evaluation post surgery for further discharge planning family requesting rehab. Time Spent With Patient Time with patient: 15 - 25 minutes Subjective Date/time seen: 01/26/25 08:01 Interval history: patient is a 74-year-old male who was admitted for further evaluation of a fracture to the left femoral neck after a fall at home. 01/26/2025: Assumed care Patient in no acute distress no complaints, pain controlled with pain medication denied CP, SOB, N/V or difficulty urinating. Review of Systems Review of Systems: All systems reviewed & are unremarkable except as noted in HPI and below Exam Narrative: * GENERAL: Alert and oriented x 3. No acute distress. * HEENT: Moist mucous membranes. * LUNGS: Clear to auscultation bilaterally. No accessory muscle use. * CARDIOVASCULAR: Regular rate and rhythm. No murmur. No JVD. S1-S2 * ABDOMEN: Soft, non tenderness and non-distended. No palpable masses. * EXTREMITIES: Pelvic tenderness. 2+pulses * SKIN: No rashes or lesions. Skin warm, dry. * NEUROLOGIC: No focal neurological deficits. CN II-XII grossly intact * PSYCHIATRIC: Appropriate mood and affect. Objective Data Vital Signs Vital Signs: Vital Signs - 24 hr 01/25/25 09:52 01/25/25 14:44 01/25/25 16:49 Temperature 97.8 F Pulse Rate 72 66 62 Respiratory Rate 15 17 16 Blood Pressure 94/58 L 90/65 L 103/61 Pulse Oximetry 100 92 93 Oxygen Delivery 01/25/25 17:15 01/25/25 20:00 01/25/25 22:00 Temperature 97.2 F L 97.9 F Pulse Rate 69 68 Respiratory Rate 18 14 Blood Pressure 135/63 102/64 Pulse Oximetry 98 94 Oxygen Delivery Room Air 01/26/25 05:45 Temperature 97.3 F L Pulse Rate 63 Respiratory Rate 13 Blood Pressure 111/50 L Pulse Oximetry 96 Oxygen Delivery Intake/Output Intake/Output: Intake & Output 01/23/25 01/24/25 01/25/25 01/26/25 23:59 23:59 23:59 23:59 Intake Total 240 700 Output Total 1200 Balance 240 -500 Meds/Results Medications: Active Medications Generic Name Dose Route Start Last Admin Trade Name Freq PRN Reason Stop Dose Admin Acetaminophen 650 mg 01/25/25 14:24 Acetaminophen 325 Mg Tablet PO Q4H PRN Mild Pain (1-3) or Fever Hydrocodone Bitart/Acetaminophen 1 tab 01/25/25 14:24 01/25/25 21:22 Hydrocodone/Acetaminophen (*Crx) 5-325 Mg Tablet PO 1 tab Q4H PRN Administration Pain Rated 4-6 Albuterol 2 puff 01/25/25 19:10 Albuterol Sulfate (*Sp) Aerosol 1 Puff INHALATION Q4H PRN shortness of breath or wheezing Aspirin 81 mg 01/26/25 09:00 Aspirin 81 Mg Chewable Tablet PO DAILY MARCO Atorvastatin Calcium 80 mg 01/25/25 21:00 01/25/25 21:20 Atorvastatin 40 Mg Tablet PO 80 mg HS MARCO Administration Docusate Sodium 100 mg 01/25/25 21:00 01/25/25 21:21 Docusate Sodium 100 Mg Capsule PO 100 mg Q12H MARCO Administration Flecainide Acetate 50 mg 01/25/25 21:00 01/25/25 21:21 Flecainide Acetate 50 Mg Tablet PO 50 mg Q12HR MARCO Administration Flecainide Acetate 100 mg 01/25/25 21:00 01/25/25 21:21 Flecainide Acetate 100 Mg Tablet PO 100 mg Q12HR [facility] Administration Fluticasone/Umeclidinium/Vilanterol 1 puff 01/26/25 09:00 01/26/25 07:56 Fluticasone/Umeclidin/Vilanter 200-62.5-25 Mcg Ellipta INHALATION 1 puff Q24H [facility] Administration Hydrochlorothiazide 12.5 mg 01/26/25 09:00 Hydrochlorothiazide 6.25 Mg Tablet PO DAILY [facility] Metoprolol Succinate 25 mg 01/26/25 09:00 Metoprolol Succinate Ext Rel 25 Mg Tabcr PO DAILY [facility] Morphine Sulfate 2 mg 01/25/25 13:54 Morphine Sulfate (*Crx) 2 Mg/Ml Inj IV PUSH Q2H PRN Pain Rated 7-10 Ondansetron HCl 4 mg 01/25/25 13:54 Ondansetron Inj 4 Mg/2 Ml Vial IV PUSH Q4H PRN Nausea Valacyclovir HCl 500 mg 01/26/25 09:00 Valacyclovir Hcl 500 Mg Tablet PO DAILY [facility] Radiology Results: ITS Impressions Chest X-Ray 01/25/25 13:21 IMPRESSION: 1. Mild atelectasis at right lung base. Hip/Pelvis X-Ray 01/25/25 13:22 IMPRESSION: 1. Subcapital fracture of left femoral neck. 2. Mild osteoarthritis of the hips. Knee X-Ray 01/25/25 13:24 IMPRESSION: 1. Mild left knee osteoarthritis. Hip X-Ray 01/25/25 15:29 IMPRESSION: Degenerative disease without acute fracture or dislocation Labs Labs: Laboratory Results - last 24 hr 01/25/25 01/25/25 01/25/25 14:00 14:01 18:19 WBC 7.1 RBC 3.68 L Hgb 12.2 L Hct 35.8 L MCV 97.3 MCH 33.2 MCHC 34.1 RDW 12.0 Plt Count 180 MPV 8.8 Immature Gran % (Auto) 0.4 Neut % (Auto) 78.2 H Lymph % (Auto) 8.8 L Hodgeman % (Auto) 11.9 H Eos % (Auto) 0.4 Baso % (Auto) 0.3 Lymph # (Auto) 0.63 L Hodgeman # (Auto) 0.9 H Eos # (Auto) 0.0 Baso # (Auto) 0.0 Abs Immat Gran (auto) 0.03 Absolute Neuts (auto) 5.6 Absolute Nucleated RBC 0.000 Nucleated RBC % 0.0 PT 15.3 H INR 1.2 APTT 28.2 Sodium 137 Potassium 4.7 Chloride 100 Carbon Dioxide 26 Anion Gap 11 BUN 28 H Creatinine 1.51 H Estim Creat Clear Calc Not Reportable Estimated GFR 45 L Glucose 113 H Calcium 9.3 Total Bilirubin 1.0 AST 33 ALT 30 Alkaline Phosphatase 105 NT-Pro-B Natriuret Pep 315 H Total Protein 7.0 Albumin 4.0 Urine Color Yellow Urine Appearance Clear Urine pH 5.0 Ur Specific Gibbs 1.020 Urine Protein Negative Urine Glucose (UA) Negative Urine Ketones 1+ H Ur Blood (Man) Trace Urine Nitrate Negative Urine Bilirubin Negative Urine Urobilinogen 0.2 Leukocyte Esterase Rfl Negative Urine RBC 3-5 H Urine WBC 0-5 Ur Squamous Epith Cells None seen Urine Bacteria None seen Urine Casts 0-2 Blood Type O Positive Antibody Screen Negative 01/26/25 06:25 WBC 6.0 RBC 3.57 L Hgb 11.8 L Hct 36.2 L MCV 101.4 H MCH 33.1 MCHC 32.6 RDW 12.2 Plt Count 162 MPV 9.0 Immature Gran % (Auto) 0.5 Neut % (Auto) 69.8 Lymph % (Auto) 12.1 L Hodgeman % (Auto) 14.6 H Eos % (Auto) 2.5 Baso % (Auto) 0.5 Lymph # (Auto) 0.73 L Hodgeman # (Auto) 0.9 H Eos # (Auto) 0.2 Baso # (Auto) 0.0 Abs Immat Gran (auto) 0.03 Absolute Neuts (auto) 4.2 Absolute Nucleated RBC 0.000 Nucleated RBC % 0.0 PT 14.3 INR 1.1 APTT 28.2 Sodium 135 L Potassium 4.2 Chloride 100 Carbon Dioxide 28 Anion Gap 7 BUN 23 H Creatinine 1.24 Estim Creat Clear Calc 50 Estimated GFR 57 L Glucose 98 Calcium 9.2 Total Bilirubin AST ALT Alkaline Phosphatase NT-Pro-B Natriuret Pep Total Protein Albumin Urine Color Urine Appearance Urine pH Ur Specific Gibbs Urine Protein Urine Glucose (UA) Urine Ketones Ur Blood (Man) Urine Nitrate Urine Bilirubin Urine Urobilinogen Leukocyte Esterase Rfl Urine RBC Urine WBC Ur Squamous Epith Cells Urine Bacteria Urine Casts Blood Type Antibody Screen Quality VTE Prophylaxis VTE prophylaxis: mechanical ordered and pharmacologic ordered (eliquis post surgery) -Patient's previous records reviewed on admission -ER notes reviewed in detail on admission -discussed all findings and current treatment plan with patient/Family/POA -Consultations reviewed for recommendations -Patient's disposition for safe discharge discussed with machine adjuster leader case trim Dictation performed by [facility] direct speech recognition software, therefore human resource analyst variants and typographical errors may occur. Hospitalist [facility] Advance Care Plan I have confirmed that the patient's Advanced Care Plan is present, code status is documented, or surrogate decision maker is listed in patient medical record.: Yes Medication Reconciliation I have utilized all available resources to obtain, update and review the patients current medications (includes all prescriptions, OTC, herbals, cannabis, and nutritional supplements).: Yes The patient is not eligible for med reconciliation; the patient is in a emergent medical situation where delaying treatment would jeopardize the patients health.: No
--- NOTE | 2025-01-26 08:32 | P.CONOP_ITS ---
Assessment and Plan Assessment and plan (1) Left displaced femoral neck fracture: Code(s): S72.002A - Fracture of unspecified part of neck of left femur, initial encounter for closed fracture Status: Acute Assessment and Plan: Patient is a 74-year-old gentleman presented to the emergency room yesterday after falling and sustaining a displaced Garden 4 vertical left subcapital femoral neck fracture. He had no prior history of problems with the left hip. He fell the night before last presenting to the emergency room yesterday morning. His past medical history is significant for atrial fibrillation for which he takes Eliquis 5 mg q.12 hours his last dose yesterday morning. Patient states he had a cardiac catheterization approximately 2 weeks ago. We will request copies of these records and any echocardiogram and cardiology consultations available. Dr. Yfn Jalloh is his primary care physician. His past history is significant for colon cancer close to the rectum in 2013 treated with excision and chemotherapy and he has an ostomy. He has problems with balance due to numbness in his feet thought to be peripheral neuropathy related to his chemotherapy. No history of diabetes. 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 On examination today he does not have palpable pulses in the left foot or ankle but there is normal color and warmth. He has decreased sensation light touch testing. There is no swelling in the leg thigh or hip. No swelling about the knee. The left leg is mildly shortened and externally rotated. He denies any other injury. He is alert and oriented pleasant gentleman in no acute distress and an excellent historian. Patient's laboratory studies on admission were significant for creatinine of 1.51. His creatinine has improved overnight with IV hydration to 1.25. His creatinine clearance today is 50. White count today 6.0 hemoglobin 11.8 and platelets [id number]. X-rays of left hip from yesterday show displaced subcapital femoral neck fracture. No significant arthritic changes present to the left hip. Bone quality looks normal. No lytic area suspicious for pathologic fracture. Assessment plan: Displaced left subcapital femoral neck fracture. I have discussed options with him and I have recommended bipolar hemiarthroplasty of the left hip. Risks of complications discussed. We will plan to proceed tomorrow. Risk of bleeding since he is also on aspirin would be diminished by having the Eliquis to fully reversed before proceeding particularly in light of his relative renal insufficiency which might delay clearance. 45 minutes were spent in total care of the patient today. History of Present Illness HPI Consult date: 01/26/25 Chief complaint: Left Hip Fracture [facility] Past Medical History Medical History (Updated 01/26/25 @ 08:33 by Eliot Siu MD) Orthostatic hypotension Waldenstrom macroglobulinemia S/P bone marrow transplant 2015 COPD (chronic obstructive pulmonary disease) Neuropathy Atrial fibrillation Family History Family History (Updated 01/25/25 @ 17:41 by Ольга Nicholson RN) Sibling Lung cancer Colorectal cancer COPD (chronic obstructive pulmonary disease) Liver cancer Father COPD (chronic obstructive pulmonary disease) Social History Social History Smoking status: Former smoker Smoking end date: 05/24/00 Do You Feel Safe in your Home?: Yes Lack of Transportation: No Lack of Food: Never True Current Housing: I Have Housing Concerned About Future Housing: No Difficulty Paying Gas/Electric Bills: No Difficulty Paying for Meds: No Currently Unemployed: No Education: Decline to Answer Difficulty w/ Childcare or Family Care: No Gender identity (if verbalized by the patient): Male Spiritual care concerns: No Meds Home Medications and Allergies Home Medications ?Medication ?Instructions ?Recorded ?Confirmed ?Type flecainide 150 mg tablet 150 mg PO Q12H 12/21/19 01/25/25 History metoprolol succinate 25 mg 25 mg PO DAILY 12/21/19 01/25/25 History tablet,extended release 24 hr albuterol sulfate 90 mcg/actuation 2 puff inhalation Q4H PRN 01/25/25 01/25/25 History aerosol inhaler shortness of breath or wheezing apixaban 5 mg tablet (Eliquis) 5 mg PO Q12H 01/25/25 01/25/25 History aspirin 81 mg chewable tablet 81 mg PO DAILY 01/25/25 01/25/25 History atorvastatin 20 mg tablet 80 mg PO HS 01/25/25 01/25/25 History cholecalciferol (vitamin D3) 125 5,000 unit PO MOWEFR 01/25/25 01/25/25 History mcg (5,000 unit) tablet (Vitamin D3) docusate sodium 100 mg capsule 100 mg PO Q12H 01/25/25 01/25/25 History fluticasone fur. 200 mcg-umeclid 1 inh inhalation Q24H 01/25/25 01/25/25 History 62.5 mcg-vilant 25 mcg inhalat.powder (Trelegy Ellipta) hydrochlorothiazide 25 mg tablet 12.5 mg PO DAILY 01/25/25 01/25/25 History valacyclovir 500 mg tablet 500 mg PO DAILY 01/25/25 01/25/25 History Allergies Allergy/AdvReac Type Severity Reaction Status Date / Time gabapentin Allergy Intermediate Rash Verified 01/25/25 09:52 Vital Signs Vital Signs - 24 hr 01/25/25 09:52 01/25/25 14:44 01/25/25 16:49 Temperature 36.6 C Pulse Rate 72 66 62 Respiratory Rate 15 17 16 Blood Pressure 94/58 L 90/65 L 103/61 Pulse Oximetry 100 92 93 Oxygen Delivery 01/25/25 17:15 01/25/25 20:00 01/25/25 22:00 Temperature 36.2 C L 36.6 C Pulse Rate 69 68 Respiratory Rate 18 14 Blood Pressure 135/63 102/64 Pulse Oximetry 98 94 Oxygen Delivery Room Air 01/26/25 05:45 Temperature 36.3 C L Pulse Rate 63 Respiratory Rate 13 Blood Pressure 111/50 L Pulse Oximetry 96 Oxygen Delivery Results Labs 01/26/25 06:25 01/26/25 06:25 Labs: Abnormal lab results 01/25/25 01/25/25 01/25/25 Range/Units 14:00 14:01 18:19 RBC 3.68 L (4.6-6.20) M/mm3 Hgb 12.2 L (14.0-18.0) g/dL Hct 35.8 L (42.0-52.0) % MCV (80-100) fl Neut % (Auto) 78.2 H (45.5-73.1) % Lymph % (Auto) 8.8 L (18.3-44.2) % Delta % (Auto) 11.9 H (2.6-8.5) % Lymph # (Auto) 0.63 L (0.9-3.2) K/mm3 Delta # (Auto) 0.9 H (0.1-0.6) K/mm3 PT 15.3 H (11.1-14.7) Seconds Sodium (137-145) mmol/L BUN 28 H (9-20) mg/dL Creatinine 1.51 H (0.7-1.3) mg/dL Estimated GFR 45 L (59 - ) Glucose 113 H (65-110) mg/dL NT-Pro-B Natriuret Pep 315 H (19.9-100) pg/mL Urine Ketones 1+ H (Negative) mg/dL Urine RBC 3-5 H (0-2) /hpf 01/26/25 Range/Units 06:25 RBC 3.57 L (4.6-6.20) M/mm3 Hgb 11.8 L (14.0-18.0) g/dL Hct 36.2 L (42.0-52.0) % MCV 101.4 H (80-100) fl Neut % (Auto) (45.5-73.1) % Lymph % (Auto) 12.1 L (18.3-44.2) % Delta % (Auto) 14.6 H (2.6-8.5) % Lymph # (Auto) 0.73 L (0.9-3.2) K/mm3 Delta # (Auto) 0.9 H (0.1-0.6) K/mm3 PT (11.1-14.7) Seconds Sodium 135 L (137-145) mmol/L BUN 23 H (9-20) mg/dL Creatinine (0.7-1.3) mg/dL Estimated GFR 57 L (59 - ) Glucose (65-110) mg/dL NT-Pro-B Natriuret Pep (19.9-100) pg/mL Urine Ketones (Negative) mg/dL Urine RBC (0-2) /hpf H & H 01/25/25 01/26/25 Range/Units 14:01 06:25 Hgb 12.2 L 11.8 L (14.0-18.0) g/dL Hct 35.8 L 36.2 L (42.0-52.0) % Coagulation 01/25/25 01/26/25 Range/Units 14:01 06:25 INR 1.2 1.1 All other labs normal.
[2025-01-26 08:42] VITALS: PULSE 62
[2025-01-26] MEDS: DOCUSATE SODIUM 100 MG CAPSULE PO ×2 (08:42→21:32)
[2025-01-26] MEDS: ACETAMINOPHEN 325 MG TABLET 650 MG PO ×4 (08:42→21:32)
[2025-01-26] MEDS: oxyCODONE HCL (*CRX) 2.5 MG TAB IR PO ×4 (08:42→21:32)
[2025-01-26] MEDS: ASPIRIN 81 MG CHEWABLE TABLET PO (08:42)
[2025-01-26] MEDS: METOPROLOL SUCCINATE EXT REL 25 MG TABCR PO (08:42)
[2025-01-26 08:43] VITALS: PULSE 62
[2025-01-26] MEDS: FLECAINIDE ACETATE 50 MG TABLET PO ×2 (08:43→21:31)
[2025-01-26] MEDS: FLECAINIDE ACETATE 100 MG TABLET PO ×2 (08:43→21:31)
[2025-01-26] MEDS: hydroCHLOROthiazide 6.25 MG TABLET 12.5 MG PO (08:48)
[2025-01-26] MEDS: valACYclovir HCL 500 MG TABLET PO (08:49)
[2025-01-26 14:00] VITALS: BP 90/63; PULSE 58; RESP 18; TEMP 36.8; O2SAT 95
--- NOTE | 2025-01-26 14:00 | P.CONNP_ITS ---
Assessment and Plan Assessment and plan (1) Stage 3a chronic kidney disease: Code(s): N18.31 - Chronic kidney disease, stage 3a Status: Chronic Assessment and Plan: * baseline creatinine appears to run ~ 1.34 - 1.60mg/dl in the last couple of years * records were provided by family at bedside * presumably due to hypertension, hyperlipidemia and age with possible contributions from previous chemotherapy(?) * better at baseline by most recent labs (2) Closed fracture of left hip: Qualifiers: Encounter type: initial encounter Qualified Code(s): S72.002A - Fracture of unspecified part of neck of left femur, initial encounter for closed fracture Code(s): S72.002A - Fracture of unspecified part of neck of left femur, initial encounter for closed fracture Status: Inactive Assessment and Plan: * as noted by admission imaging * Orthopedic Surgery following * planning surgical intervention tomorrow * pain control (3) Atrial fibrillation: Code(s): I48.91 - Unspecified atrial fibrillation Status: Acute Assessment and Plan: * rate controlled * anticoagulation on hold for now given needed surgery * Cardiology consulted From a renal perspective, the patient is medically cleared to proceed with bipolar hemiarthroplasty of the left hip?with the understanding that patients with chronic kidney disease have mildly higher rates of complications for the procedure such as hemodynamic and infectious issues but he is at baseline risk. I will continue to follow the patient with you while he remains hospitalized and make further recommendations as deemed necessary. Thank you for allowing me to participate in the care of this patient. L History of Present Illness Reason for Consult Consult date: 01/26/25 Reason for consult: chronic renal failure Chief Complaint Chief complaint: Left Hip Fracture History of Present Illness Narrative: The patient is a 74-year-old male with a past medical history as outlined below who presented to [facility] via EMS for left hip pain following a fall. The patient apparently had a ground level fall the night before admission/ presentation to the ER. He apparently got out of a chair around 11:00 p.m. yesterday evening when he lost his balance and fell to the ground on his left side. He thinks his legs may fallen asleep and this combined with his known peripheral neuropathy and right drop foot caused in the loses balance leading to the fall. He never lost consciousness or sustain any head trauma from fall. He reports immediate pain to his left hip after the fall but he was able to ambulate after fall. However, pain has been persistent causing him very little sleep. he describes the pain as achy dull sensation that is nonradiating and worsens with any type movement. Given his ongoing left hip pain, he presented to the emergency room for further assessment. Workup and evaluation emergency room demonstrated the patient be hemodynamically stable and afebrile. Subsequent testing demonstrated normal white blood cell count hemoglobin 12 2 which appears to be his baseline and a chemistry with no critical electrolyte abnormalities but with evidence of renal insufficiency. His chest x-ray showed mild atelectasis at the right lung base and the hip/pelvic x-ray showed a subcapital fracture of left femoral neck and mild osteoarthritis of hips. Given the findings of the left if fracture, Orthopedic surgery was consulted and he was subsequently admitted to the hospital for further evaluation therapy. Renal consultation was requested due to his history of renal insufficiency. Great deal of the information that I have obtained is from discussion with the patient's who keeps meticulous records regarding his medical health. From will review these records that she provided his baseline creatinine had been running around 1.34 to 1.6 mg/dL for the last couple of years. His sales floor team member/oncologist based at [facility] in [place] of was early has been monitoring his renal function and has mentions to both the patient as well as its presence but the fact that has been relatively stable. As far as I can tell, he has not had any issues or problems with regard to his kidneys or overall kidney function aside from the fact that he does have some underlying renal insufficiency in general. Currently the time my evaluation he appears to be in no acute distress. Review of Systems 2 Review of Systems: As per HPI. [facility] Past Medical History Medical History (Updated 01/27/25 @ 13:46 by Eliot Siu MD) History of atrial fibrillation CKD (chronic kidney disease) Orthostatic hypotension Waldenstrom macroglobulinemia S/P bone marrow transplant 2015 COPD (chronic obstructive pulmonary disease) Neuropathy Atrial fibrillation Family History Family History Sibling Lung cancer Colorectal cancer COPD (chronic obstructive pulmonary disease) Liver cancer Father COPD (chronic obstructive pulmonary disease) Social History Social History Smoking status: Former smoker Smoking end date: 05/24/00 Do You Feel Safe in your Home?: Yes Lack of Transportation: No Lack of Food: Never True Current Housing: I Have Housing Concerned About Future Housing: No Difficulty Paying Gas/Electric Bills: No Difficulty Paying for Meds: No Currently Unemployed: No Education: Decline to Answer Difficulty w/ Childcare or Family Care: No Gender identity (if verbalized by the patient): Male Spiritual care concerns: No Meds Home Medications and Allergies Home Medications ?Medication ?Instructions ?Recorded ?Confirmed ?Type flecainide 150 mg tablet 150 mg PO Q12H 12/21/19 01/25/25 History metoprolol succinate 25 mg 25 mg PO DAILY 12/21/19 01/25/25 History tablet,extended release 24 hr albuterol sulfate 90 mcg/actuation 2 puff inhalation Q4H PRN 01/25/25 01/25/25 History aerosol inhaler shortness of breath or wheezing apixaban 5 mg tablet (Eliquis) 5 mg PO Q12H 01/25/25 01/25/25 History aspirin 81 mg chewable tablet 81 mg PO DAILY 01/25/25 01/25/25 History atorvastatin 20 mg tablet 80 mg PO HS 01/25/25 01/25/25 History cholecalciferol (vitamin D3) 125 5,000 unit PO MOWEFR 01/25/25 01/25/25 History mcg (5,000 unit) tablet (Vitamin D3) docusate sodium 100 mg capsule 100 mg PO Q12H 01/25/25 01/25/25 History fluticasone fur. 200 mcg-umeclid 1 inh inhalation Q24H 01/25/25 01/25/25 History 62.5 mcg-vilant 25 mcg inhalat.powder (Trelegy Ellipta) hydrochlorothiazide 25 mg tablet 12.5 mg PO DAILY 01/25/25 01/25/25 History valacyclovir 500 mg tablet 500 mg PO DAILY 01/25/25 01/25/25 History Allergies Allergy/AdvReac Type Severity Reaction Status Date / Time gabapentin Allergy Intermediate Rash Verified 01/25/25 09:52 Vital Signs Vital Signs Temp Pulse Resp BP Pulse Ox O2 Del Method 01/26/25 08:43 62 01/26/25 08:43 62 01/26/25 08:42 62 01/26/25 08:00 96 Room Air 01/26/25 05:45 97.3 F L 63 13 111/50 L 96 01/25/25 22:00 97.9 F 68 14 102/64 94 01/25/25 20:00 Room Air 01/25/25 17:15 97.2 F L 69 18 135/63 98 01/25/25 16:49 62 16 103/61 93 01/25/25 14:44 66 17 90/65 L 92 Exam 2 Narrative: GENERAL APPEARANCE: well developed well nourished male in no acute distress HEENT: normocephalic, atraumatic, normal conjunctiva and sclera, nares patient NECK: no lymphadenopathy, thyromegaly, or JVD MOUTH: normal lips, teeth, and gums CARDIOVASCULAR: RRR, normal S1 and S2, no rub RESPIRATORY: clear to auscultation bilaterally ABDOMEN: soft, nontender, nondistended, positive bowel sounds present EXTREMITIES: no evidence of cyanosis, clubbing, or edema NEUROLOGICAL: alert and oriented x 3; CN II - XII intact bilaterally; no focal deficits noted Results Lab Results 01/27/25 06:22 01/27/25 06:22 Lab results: Most recent lab results Calcium 9.2 mg/dL (8.4-10.2) 01/26/25 06:25
--- NOTE | 2025-01-26 15:08 | P.CONCA_ITS ---
Assessment and Plan Assessment and plan (1) Atrial fibrillation: Code(s): I48.91 - Unspecified atrial fibrillation Status: Acute Assessment and Plan: Remains in sinus rhythm on flecainide. After orthopedic surgery is complete, resume apixaban when okay with Dr. Siu. (2) Preoperative cardiovascular examination: Code(s): Z01.810 - Encounter for preprocedural cardiovascular examination Status: Acute Assessment and Plan: He has atrial fibrillation and nonobstructive coronary artery disease. No other known cardiac diagnoses. Based on this information, would consider him low risk for adverse cardiovascular event during arthroplasty of the left hip. History of Present Illness History of Present Illness Consult date/time: 01/26/25 15:08 Requesting physician: Eliot Siu MD Consult reason: atrial fibrillation Reason For Visit: Left Hip Fracture Narrative: Xavier Sosa is a 74 year old male with atrial fibrillation who presented to the hospital following a ground level fall. He has been found to have a femoral neck fracture and surgery is planned for tomorrow. Cardiology is consulted for atrial fibrillation. Patient has had atrial fibrillations since 2013 which was initially managed with electrical cardioversion and he has been maintaining sinus rhythm on flecainide since that time according to his report. He did recently have a left heart catheterization which was performed because of complaints of progressive dyspnea. Coronary angiogram showed mild, nonobstructive coronary artery disease in both the right coronary artery and the left main. He does not have any chest pain, shortness of breath, palpitations. Review of Systems 2 Review of Systems: All systems reviewed & are unremarkable except as noted in HPI and below PMFSH Past Medical History Medical History CKD (chronic kidney disease) Orthostatic hypotension Waldenstrom macroglobulinemia S/P bone marrow transplant 2015 COPD (chronic obstructive pulmonary disease) Neuropathy Atrial fibrillation Family History Family History Sibling Lung cancer Colorectal cancer COPD (chronic obstructive pulmonary disease) Liver cancer Father COPD (chronic obstructive pulmonary disease) Social History Social History Smoking status: Former smoker Smoking end date: 05/24/00 Do You Feel Safe in your Home?: Yes Lack of Transportation: No Lack of Food: Never True Current Housing: I Have Housing Concerned About Future Housing: No Difficulty Paying Gas/Electric Bills: No Difficulty Paying for Meds: No Currently Unemployed: No Education: Decline to Answer Difficulty w/ Childcare or Family Care: No Gender identity (if verbalized by the patient): Male Spiritual care concerns: No Meds Home Medications and Allergies Home Medications ?Medication ?Instructions ?Recorded ?Confirmed ?Type flecainide 150 mg tablet 150 mg PO Q12H 12/21/19 01/25/25 History metoprolol succinate 25 mg 25 mg PO DAILY 12/21/19 01/25/25 History tablet,extended release 24 hr albuterol sulfate 90 mcg/actuation 2 puff inhalation Q4H PRN 01/25/25 01/25/25 History aerosol inhaler shortness of breath or wheezing apixaban 5 mg tablet (Eliquis) 5 mg PO Q12H 01/25/25 01/25/25 History aspirin 81 mg chewable tablet 81 mg PO DAILY 01/25/25 01/25/25 History atorvastatin 20 mg tablet 80 mg PO HS 01/25/25 01/25/25 History cholecalciferol (vitamin D3) 125 5,000 unit PO MOWEFR 01/25/25 01/25/25 History mcg (5,000 unit) tablet (Vitamin D3) docusate sodium 100 mg capsule 100 mg PO Q12H 01/25/25 01/25/25 History fluticasone fur. 200 mcg-umeclid 1 inh inhalation Q24H 01/25/25 01/25/25 History 62.5 mcg-vilant 25 mcg inhalat.powder (Trelegy Ellipta) hydrochlorothiazide 25 mg tablet 12.5 mg PO DAILY 01/25/25 01/25/25 History valacyclovir 500 mg tablet 500 mg PO DAILY 01/25/25 01/25/25 History Allergies Allergy/AdvReac Type Severity Reaction Status Date / Time gabapentin Allergy Intermediate Rash Verified 01/25/25 09:52 Vital Signs Vital Signs - 24 hr 01/25/25 16:49 01/25/25 17:15 01/25/25 20:00 Temperature 36.2 C L Pulse Rate 62 69 Respiratory Rate 16 18 Blood Pressure 103/61 135/63 Pulse Oximetry 93 98 Oxygen Delivery Room Air 01/25/25 22:00 01/26/25 05:45 01/26/25 08:00 Temperature 36.6 C 36.3 C L Pulse Rate 68 63 Respiratory Rate 14 13 Blood Pressure 102/64 111/50 L Pulse Oximetry 94 96 96 Oxygen Delivery Room Air 01/26/25 08:42 01/26/25 08:43 01/26/25 08:43 Temperature Pulse Rate 62 62 62 Respiratory Rate Blood Pressure Pulse Oximetry Oxygen Delivery 01/26/25 14:00 Temperature 36.8 C Pulse Rate 58 L Respiratory Rate 18 Blood Pressure 90/63 L Pulse Oximetry 95 Oxygen Delivery Exam 2 Const: General: comfortable, no acute distress, alert and awake O rientation/consciousness: patient oriented x3 HENMT: Head: normal to inspection Eyes: General: appearance normal, both eyes and all related structures P upils: Equal, round and reactive pupils present Neck: Neck: normal visual inspection, supple and no JVD Carotids: normal carotid upstroke Resp: Effort & Inspection: normal respiratory effort Auscultation: clear to auscultation bilaterally Cardio: Rate: regular rate Rhythm: regular rhythm Heart sounds: S1 normal heart sound present, S2 normal heart sound present and no murmurs GI: Auscultation: normal bowel sounds Skin: General skin exam: normal color Neuro: General: patient oriented x3 Cranial nerves: Yes Equal, round and reactive pupils present Extrem: General: normal to inspection Psych: Appearance: grossly normal Mental Status: mental status grossly normal Results Labs and Meds 01/26/25 06:25 01/26/25 06:25 Lab results: Coagulation 01/26/25 Range/Units 06:25 PT 14.3 (11.1-14.7) Seconds APTT 28.2 (22.3-36.8) Seconds CBC 01/26/25 Range/Units 06:25 WBC 6.0 (4.5-10.0) K/mm3 RBC 3.57 L (4.6-6.20) M/mm3 Hgb 11.8 L (14.0-18.0) g/dL Hct 36.2 L (42.0-52.0) % Plt Count 162 (150-375) k/mm3 Lymph # (Auto) 0.73 L (0.9-3.2) K/mm3 [place] # (Auto) 0.9 H (0.1-0.6) K/mm3 Eos # (Auto) 0.2 (0-0.3) K/mm3 Baso # (Auto) 0.0 (0.0-0.1) K/mm3 Comprehensive Metabolic Panel 01/26/25 Range/Units 06:25 Sodium 135 L (137-145) mmol/L Potassium 4.2 (3.4-5.0) mmol/L Chloride 100 (98-107) mmol/L Carbon Dioxide 28 (22-30) mmol/L BUN 23 H (9-20) mg/dL Creatinine 1.24 (0.7-1.3) mg/dL Glucose 98 (65-110) mg/dL Calcium 9.2 (8.4-10.2) mg/dL Intake and Output 01/25/25 01/26/25 01/26/25 23:59 07:59 15:59 Intake Total 240 700 180 Output Total 1200 350 Balance 240 -500 -170 Intake: Oral 240 700 180 Output: Urine 1200 350
[2025-01-26 20:50] VITALS: BP 117/79; PULSE 62; RESP 18; TEMP 36.7; O2SAT 97
[2025-01-26] MEDS: ATORVASTATIN 40 MG TABLET 80 MG PO (21:32)
[2025-01-27] VITALS (20 sets, daily range): BP systolic 86–124; BP diastolic 42–72; PULSE 58–66; RESP 16–20; TEMP 35.8–36.8; O2SAT 95–100
[2025-01-27] MEDS: oxyCODONE HCL (*CRX) 5 MG TAB IR PO ×2 (03:10→11:30)
[2025-01-27] MEDS: oxyCODONE HCL (*CRX) 2.5 MG TAB IR PO ×3 (05:25→21:58)
[2025-01-27] MEDS: ACETAMINOPHEN 325 MG TABLET 650 MG PO ×2 (05:25→21:58)
[2025-01-27 06:29] LABS: Hematocrit 33.9 % (42.0-52.0); Hemoglobin 11.3 g/dL (14.0-18.0); Mean Corpuscular HGB Conc 33.3 g/dl (32-36); Mean Corpuscular Hemoglobin 32.6 pg (26-34); Mean Corpuscular Volume 97.7 fl (80-100); Mean Platelet Volume 8.5 fl (7.4-10.4); Platelet Count Result 149 k/mm3 (150-375); Red Blood Count 3.47 M/mm3 (4.6-6.20); Red Cell Distribution Width 12.2 % (11.5-14.5); White Blood Count 6.5 K/mm3 (4.5-10.0)
[2025-01-27 06:42] LABS: Alanine Aminotransferase 25 U/L (6-50); Albumin Level 3.5 g/dL (3.5-5.1); Alkaline Phosphatase 87 U/L (38-126); Anion Gap 5 mmol/L (4-12); Aspartate Amino Transferase 36 U/L (17-59); Bilirubin,Total 1.1 mg/dL (0.2-1.3); Blood Urea Nitrogen 23 mg/dL (9-20); Calcium 9.1 mg/dL (8.4-10.2); Carbon Dioxide 32 mmol/L (22-30); Chloride 97 mmol/L (98-107); Estimated CRCL calculation 53 ml/min; Estimated Glomerular Filt Rate 60; Glucose 105 mg/dL (65-110); Potassium 4.6 mmol/L (3.4-5.0); Sodium 134 mmol/L (137-145)
[2025-01-27] MEDS: FLECAINIDE ACETATE 100 MG TABLET PO ×2 (09:01→21:58)
[2025-01-27] MEDS: METOPROLOL SUCCINATE EXT REL 25 MG TABCR PO (09:02)
[2025-01-27] MEDS: FLECAINIDE ACETATE 50 MG TABLET PO ×2 (09:02→21:57)
[2025-01-27] MEDS: FLUTICASONE/UMECLIDIN/VILANTER 200-62.5-25 MCG ELLIPTA 1 PUFF INHALATION (10:31)
--- NOTE | 2025-01-27 11:02 | P.PNNP_ITS ---
Progress Note: A&P Assessment and Plan (1) Stage 3a chronic kidney disease: Code(s): N18.31 - Chronic kidney disease, stage 3a Status: Chronic Assessment and Plan: * baseline creatinine appears to run ~ 1.34 - 1.60mg/dl in the last couple of years * records were provided by family at bedside * presumably due to hypertension, hyperlipidemia and age with possible contributions from previous chemotherapy(?) * better at baseline by recent testing (2) Closed fracture of left hip: Qualifiers: Encounter type: initial encounter Qualified Code(s): S72.002A - Fracture of unspecified part of neck of left femur, initial encounter for closed fracture Code(s): S72.002A - Fracture of unspecified part of neck of left femur, initial encounter for closed fracture Status: Inactive Assessment and Plan: * as noted by admission imaging * Orthopedic Surgery following * planning surgical intervention later today * pain control * PT/OT as tolerated post-operatively (3) Atrial fibrillation: Code(s): I48.91 - Unspecified atrial fibrillation Status: Acute Assessment and Plan: * rate controlled * anticoagulation on hold for now given needed surgery * Cardiology recommendations noted Not much else to add -- will continue to follow from a distance. L Subjective Date/time seen: 01/27/25 11:02 Interval history: Follow-up for chronic kidney disease. Renal function/creatinine remains better than baseline by recent labs in association with good urine output; tentatively on schedule for surgery this afternoon; no apparent distress noted at the time of my visit; no issues/events overnight or earlier this morning. Exam 2 Narrative: General: elderly but WD/WN male in NAD Heart: normal S1 and S2; no rub Lungs: clear to auscultation Abdomen: soft, nontender, nondistended, positive bowel sounds Extremities: no cyanosis or clubbing; no edema Skin: warm and dry Objective Data Vital Signs Vital Signs: Vital Signs Temp Pulse Resp BP Pulse Ox O2 Del Method 01/27/25 10:31 95 Room Air 01/27/25 09:02 63 01/27/25 09:02 63 01/27/25 09:01 63 01/27/25 09:01 63 109/60 01/27/25 08:00 63 16 96 Room Air 01/27/25 05:15 96.7 F L 62 16 122/72 96 01/26/25 20:50 98.1 F 62 18 117/79 97 01/26/25 14:00 98.2 F 58 L 18 90/63 L 95 Intake/Output Intake/Output: Intake & Output 01/24/25 01/25/25 01/26/25 01/27/25 23:59 23:59 23:59 23:59 Intake Total 240 1160 500 Output Total 2300 825 Balance 240 -8061 -814 Meds/Results Medications: Active Medications Generic Name Dose Route Start Last Admin Trade Name Freq PRN Reason Stop Dose Admin Acetaminophen 650 mg 01/26/25 08:35 01/27/25 12:41 Acetaminophen 325 Mg Tablet PO Not Given Q4H MARCO Albuterol 2 puff 01/25/25 19:10 Albuterol Sulfate (*Sp) Aerosol 1 Puff INHALATION Q4H PRN shortness of breath or wheezing Aspirin 81 mg 01/26/25 09:00 01/26/25 08:42 Aspirin 81 Mg Chewable Tablet PO 81 mg DAILY MARCO Administration Atorvastatin Calcium 80 mg 01/25/25 21:00 01/26/25 21:32 Atorvastatin 40 Mg Tablet PO 80 mg HS MARCO Administration Docusate Sodium 100 mg 01/25/25 21:00 01/27/25 09:03 Docusate Sodium 100 Mg Capsule PO Not Given Q12H MARCO Flecainide Acetate 50 mg 01/25/25 21:00 01/27/25 09:02 Flecainide Acetate 50 Mg Tablet PO 50 mg Q12HR MARCO Administration Flecainide Acetate 100 mg 01/25/25 21:00 01/27/25 09:01 Flecainide Acetate 100 Mg Tablet PO 100 mg Q12HR MARCO Administration Fluticasone/Umeclidinium/Vilanterol 1 puff 01/26/25 09:00 01/27/25 10:31 Fluticasone/Umeclidin/Vilanter 200-62.5-25 Mcg Ellipta INHALATION 1 puff Q24H MARCO Administration Hydrochlorothiazide 12.5 mg 01/26/25 09:00 01/26/25 08:48 Hydrochlorothiazide 6.25 Mg Tablet PO 12.5 mg DAILY MARCO Administration Vancomycin HCl 1,500 mg in 500 mls @ 250 mls/hr 01/27/25 12:00 01/27/25 11:28 Vancomycin 1,500 Mg/Ns 500 Ml IVPB 01/27/25 13:59 250 mls/hr ONCE ONE Administration Lactated Ringer's 1,000 mls @ 30 mls/hr 01/27/25 10:45 01/27/25 12:20 Lr - Lactated Ringers Iv IV CONT 30 mls/hr .Q24H MARCO Administration Metoprolol Succinate 25 mg 01/26/25 09:00 01/27/25 09:02 Metoprolol Succinate Ext Rel 25 Mg Tabcr PO 25 mg DAILY MARCO Administration Morphine Sulfate 2 mg 01/25/25 13:54 Morphine Sulfate (*Crx) 2 Mg/Ml Inj IV PUSH Q2H PRN Pain Rated 7-10 Ondansetron HCl 4 mg 01/25/25 13:54 Ondansetron Inj 4 Mg/2 Ml Vial IV PUSH Q4H PRN Nausea Oxycodone HCl 2.5 mg 01/26/25 08:35 01/27/25 12:41 Oxycodone Hcl (*Crx) 2.5 Mg Tab Ir PO Not Given Q4H [facility] Oxycodone HCl 5 mg 01/26/25 08:31 01/27/25 11:30 Oxycodone Hcl (*Crx) 5 Mg Tab Ir PO 5 mg Q4H PRN Administration Pain Rated 4-10 Polyethylene Glycol 17 gm 01/27/25 09:00 Polyethylene Glycol 3350 17 Gm Powd.Pack PO QAM [facility] Valacyclovir HCl 500 mg 01/26/25 09:00 01/26/25 08:49 Valacyclovir Hcl 500 Mg Tablet PO 500 mg DAILY MARCO Administration Radiology Results: ITS Impressions Chest X-Ray 01/25/25 13:21 IMPRESSION: 1. Mild atelectasis at right lung base. Hip/Pelvis X-Ray 01/25/25 13:22 IMPRESSION: 1. Subcapital fracture of left femoral neck. 2. Mild osteoarthritis of the hips. Knee X-Ray 01/25/25 13:24 IMPRESSION: 1. Mild left knee osteoarthritis. Hip X-Ray 01/25/25 15:29 IMPRESSION: Degenerative disease without acute fracture or dislocation Labs Labs: Laboratory Tests 01/27/25 06:22 01/27/25 06:22 Calcium 9.1 Total Bilirubin 1.1 AST 36 ALT 25 Alkaline Phosphatase 87 Total Protein 6.0 L Albumin 3.5
[2025-01-27] MEDS: VANCOMYCIN 1,500 MG/NS 500 ML BAG 250 MG IVPB (11:28)
--- NOTE | 2025-01-27 11:49 | P.PNIM_ITS ---
Progress Note: A&P Assessment and Plan (1) Closed fracture of left hip: Qualifiers: Encounter type: initial encounter Qualified Code(s): S72.002A - Fracture of unspecified part of neck of left femur, initial encounter for closed fracture Code(s): S72.002A - Fracture of unspecified part of neck of left femur, initial encounter for closed fracture Status: Inactive Assessment and Plan: * hip/pelvic XR: 1. Subcapital fracture of left femoral neck. 2. Mild osteoarthritis of the hips. * knee XR (L) and CXR negative for trauma or acute findings * orthopedics consulted, awaiting formal recs * tentative surgery date 01/27, patient on Eliquis (holding, repeat coags tomorrow) * orthopedist consulted Cardiology and Nephrology due to history of AFib and possible recent onset CKD but appears VICTOR HUGO resolved with IV fluids * EKG: SR 1st degree block 68 * NPO for possible surgery 01/27/2025 * analgesics and antiemetics p.r.n. * will need PT/OT postop * Can resume Eliquis post surgery 01/27: * Surgery today scheduled * pain management * PT/OT post op plan for Rehab * bringing patient boot for his foot drop tomorrow prior to PT (2) Atrial fibrillation: Code(s): I48.91 - Unspecified atrial fibrillation Status: Acute Assessment and Plan: * EKG SR 68 with first-degree block * will resume Eliquis post surgery and resume metoprolol * continuous cardiac monitoring * cardiology has been consulted ortho surgical clearance (3) Stage 3a chronic kidney disease: Code(s): N18.31 - Chronic kidney disease, stage 3a Status: Chronic Assessment and Plan: * Cr peaked at 1.51 around baseline * Resolved with IV fluids Cr 1.24 * nephrology consulted by ortho for evaluation pre-surgery cleared per Nephrology * From renal function post surgery Plan Code status: Full code per patient DVT prophylaxis: Eliquis post surgery/SCd's Stress ulcer prophylaxis: NA PT/OT notes: PT/OT post surgery Disposition: patient continues admission to the medical unit for a left hip fracture and will likely be for surgery tomorrow 01/27 PT/ OT evaluation post surgery for further discharge planning family requesting rehab. Time Spent With Patient Time with patient: 15 - 25 minutes Subjective Date/time seen: 01/27/25 11:49 Interval history: patient is a 74-year-old male who was admitted for further evaluation of a fracture to the left femoral neck after a fall at home. 01/27/2025: Patient scheduled for surgery today no acute complaints cleared by cardiology and nephrology. Cr improved 1.18 and in SR. Follow-up post-op Review of Systems Review of Systems: All systems reviewed & are unremarkable except as noted in HPI and below Exam Narrative: * GENERAL: Alert and oriented x 3. No acute distress. * HEENT: Moist mucous membranes. * LUNGS: Clear to auscultation bilaterally. No accessory muscle use. * CARDIOVASCULAR: Regular rate and rhythm. No murmur. No JVD. S1-S2 * ABDOMEN: Soft, non tenderness and non-distended. No palpable masses. * EXTREMITIES: Pelvic tenderness. 2+pulses * SKIN: No rashes or lesions. Skin warm, dry. * NEUROLOGIC: No focal neurological deficits. CN II-XII grossly intact * PSYCHIATRIC: Appropriate mood and affect. Objective Data Vital Signs Vital Signs: Vital Signs - 24 hr 01/26/25 14:00 01/26/25 20:50 01/27/25 05:15 Temperature 98.2 F 98.1 F 96.7 F L Pulse Rate 58 L 62 62 Respiratory Rate 18 18 16 Blood Pressure 90/63 L 117/79 122/72 Pulse Oximetry 95 97 96 Oxygen Delivery 01/27/25 08:00 01/27/25 09:01 01/27/25 09:01 Temperature Pulse Rate 63 63 63 Respiratory Rate 16 Blood Pressure 109/60 Pulse Oximetry 96 Oxygen Delivery Room Air 01/27/25 09:02 01/27/25 09:02 01/27/25 10:31 Temperature Pulse Rate 63 63 Respiratory Rate Blood Pressure Pulse Oximetry 95 Oxygen Delivery Room Air Intake/Output Intake/Output: Intake & Output 01/24/25 01/25/25 01/26/25 01/27/25 23:59 23:59 23:59 23:59 Intake Total 240 1160 500 Output Total 2300 825 Balance 240 -2565 -271 Meds/Results Medications: Active Medications Generic Name Dose Route Start Last Admin Trade Name Freq PRN Reason Stop Dose Admin Acetaminophen 650 mg 01/26/25 08:35 01/27/25 10:42 Acetaminophen 325 Mg Tablet PO Not Given Q4H [facility] Albuterol 2 puff 01/25/25 19:10 Albuterol Sulfate (*Sp) Aerosol 1 Puff INHALATION Q4H PRN shortness of breath or wheezing Aspirin 81 mg 01/26/25 09:00 01/26/25 08:42 Aspirin 81 Mg Chewable Tablet PO 81 mg DAILY [facility] Administration Atorvastatin Calcium 80 mg 01/25/25 21:00 01/26/25 21:32 Atorvastatin 40 Mg Tablet PO 80 mg HS [facility] Administration Docusate Sodium 100 mg 01/25/25 21:00 01/27/25 09:03 Docusate Sodium 100 Mg Capsule PO Not Given Q12H [facility] Flecainide Acetate 50 mg 01/25/25 21:00 01/27/25 09:02 Flecainide Acetate 50 Mg Tablet PO 50 mg Q12HR [facility] Administration Flecainide Acetate 100 mg 01/25/25 21:00 01/27/25 09:01 Flecainide Acetate 100 Mg Tablet PO 100 mg Q12HR [facility] Administration Fluticasone/Umeclidinium/Vilanterol 1 puff 01/26/25 09:00 01/27/25 10:31 Fluticasone/Umeclidin/Vilanter 200-62.5-25 Mcg Ellipta INHALATION 1 puff Q24H [facility] Administration Hydrochlorothiazide 12.5 mg 01/26/25 09:00 01/26/25 08:48 Hydrochlorothiazide 6.25 Mg Tablet PO 12.5 mg DAILY [facility] Administration Tranexamic Acid/Sodium Chloride 1,000 mg in 100 mls @ 200 mls/hr 01/27/25 12:00 Tranexamic Acid 1,000mg/Dsx208 IVPB 01/27/25 12:29 ONCE ONE Cefazolin Sodium 2 gm in 50 mls @ 100 mls/hr 01/27/25 12:00 Ancef 2 Gm/D5w 50 Ml IVPB 01/27/25 12:29 ONCE ONE Vancomycin HCl 1,500 mg in 500 mls @ 250 mls/hr 01/27/25 12:00 01/27/25 11:28 Vancomycin 1,500 Mg/Ns 500 Ml IVPB 01/27/25 13:59 250 mls/hr ONCE ONE Administration Lactated Ringer's 1,000 mls @ 30 mls/hr 01/27/25 10:45 Lr - Lactated Ringers Iv IV CONT .Q24H [facility] Metoprolol Succinate 25 mg 01/26/25 09:00 01/27/25 09:02 Metoprolol Succinate Ext Rel 25 Mg Tabcr PO 25 mg DAILY [facility] Administration Morphine Sulfate 2 mg 01/25/25 13:54 Morphine Sulfate (*Crx) 2 Mg/Ml Inj IV PUSH Q2H PRN Pain Rated 7-10 Ondansetron HCl 4 mg 01/25/25 13:54 Ondansetron Inj 4 Mg/2 Ml Vial IV PUSH Q4H PRN Nausea Oxycodone HCl 2.5 mg 01/26/25 08:35 01/27/25 09:02 Oxycodone Hcl (*Crx) 2.5 Mg Tab Ir PO 2.5 mg Q4H [facility] Administration Oxycodone HCl 5 mg 01/26/25 08:31 01/27/25 11:30 Oxycodone Hcl (*Crx) 5 Mg Tab Ir PO 5 mg Q4H PRN Administration Pain Rated 4-10 Polyethylene Glycol 17 gm 01/27/25 09:00 Polyethylene Glycol 3350 17 Gm Powd.Pack PO QAM [facility] Valacyclovir HCl 500 mg 01/26/25 09:00 01/26/25 08:49 Valacyclovir Hcl 500 Mg Tablet PO 500 mg DAILY [facility] Administration Radiology Results: ITS Impressions Chest X-Ray 01/25/25 13:21 IMPRESSION: 1. Mild atelectasis at right lung base. Hip/Pelvis X-Ray 01/25/25 13:22 IMPRESSION: 1. Subcapital fracture of left femoral neck. 2. Mild osteoarthritis of the hips. Knee X-Ray 01/25/25 13:24 IMPRESSION: 1. Mild left knee osteoarthritis. Hip X-Ray 01/25/25 15:29 IMPRESSION: Degenerative disease without acute fracture or dislocation Labs Labs: Laboratory Results - last 24 hr 01/27/25 06:22 WBC 6.5 RBC 3.47 L Hgb 11.3 L Hct 33.9 L MCV 97.7 MCH 32.6 MCHC 33.3 RDW 12.2 Plt Count 149 L MPV 8.5 Sodium 134 L Potassium 4.6 Chloride 97 L Carbon Dioxide 32 H Anion Gap 5 BUN 23 H Creatinine 1.18 Estim Creat Clear Calc 53 Estimated GFR 60 Glucose 105 Calcium 9.1 Total Bilirubin 1.1 AST 36 ALT 25 Alkaline Phosphatase 87 Total Protein 6.0 L Albumin 3.5 Quality VTE Prophylaxis VTE prophylaxis: mechanical ordered and pharmacologic ordered (eliquis post surgery) -Patient's previous records reviewed on admission -ER notes reviewed in detail on admission -discussed all findings and current treatment plan with patient/Family/POA -Consultations reviewed for recommendations -Patient's disposition for safe discharge discussed with case planner Dictation performed by [employer] direct speech recognition software, therefore panelboard operator variants and typographical errors may occur. Hospitalist [facility] Advance Care Plan I have confirmed that the patient's Advanced Care Plan is present, code status is documented, or surrogate decision maker is listed in patient medical record.: Yes Medication Reconciliation I have utilized all available resources to obtain, update and review the patients current medications (includes all prescriptions, OTC, herbals, cannabis, and nutritional supplements).: Yes The patient is not eligible for med reconciliation; the patient is in a emergent medical situation where delaying treatment would jeopardize the patients health.: No
[2025-01-27] MEDS: LACTATED RINGERS 1,000 ML 30 ML IV CONT ×2 (12:20→16:50)
[2025-01-27] MEDS: TRANEXAMIC ACID 1,000MG/ISO100 1,000 MG/100 ML BAG 200 MG IVPB (12:45)
--- NOTE | 2025-01-27 12:46 | PM.PNORT ---
Progress Note: A&P Assessment and Plan (1) Left displaced femoral neck fracture: Code(s): S72.002A - Fracture of unspecified part of neck of left femur, initial encounter for closed fracture Status: Acute Assessment and Plan: Patient is scheduled for bipolar hemiarthroplasty of the left hip for femoral neck fracture this afternoon at 1:30 a.m.. His laboratory studies were stable. Platelets [id number] white count 6.5 and hemoglobin 11.3. His admission hemoglobin was 12.2 but he had a significant increase in creatinine which has responded to fluid resuscitation so some of this drop in hemoglobin this likely hemodilution all. Therefore he has not bled a great deal from his fracture fortunately. Dr. Gonzalez's cardiology consultation is reviewed. Dr. Taveras's nephrology consultation is reviewed Surgery today was discussed and he had no additional questions. A we will proceed as discussed. Subjective Subjective Date/Time Seen: 01/27/25 12:46 Objective Data Vital Signs Vital Signs: Vital Signs - 24 hr 01/26/25 14:00 01/26/25 20:50 01/27/25 05:15 Temperature 36.8 C 36.7 C 35.9 C L Pulse Rate 58 L 62 62 Respiratory Rate 18 18 16 Blood Pressure 90/63 L 117/79 122/72 Pulse Oximetry 95 97 96 Oxygen Delivery 01/27/25 08:00 01/27/25 09:01 01/27/25 09:01 Temperature Pulse Rate 63 63 63 Respiratory Rate 16 Blood Pressure 109/60 Pulse Oximetry 96 Oxygen Delivery Room Air 01/27/25 09:02 01/27/25 09:02 01/27/25 10:31 Temperature Pulse Rate 63 63 Respiratory Rate Blood Pressure Pulse Oximetry 95 Oxygen Delivery Room Air Intake/Output Intake/Output: Intake & Output 01/24/25 01/25/25 01/26/25 01/27/25 23:59 23:59 23:59 23:59 Intake Total 240 1160 500 Output Total 2300 825 Balance 240 1140 -325 Meds/Results Medications: Active Medications Generic Name Dose Route Start Last Admin Trade Name Freq PRN Reason Stop Dose Admin Acetaminophen 650 mg 01/26/25 08:35 01/27/25 12:41 Acetaminophen 325 Mg Tablet PO Not Given Q4H [facility] Albuterol 2 puff 01/25/25 19:10 Albuterol Sulfate (*Sp) Aerosol 1 Puff INHALATION Q4H PRN shortness of breath or wheezing Aspirin 81 mg 01/26/25 09:00 01/26/25 08:42 Aspirin 81 Mg Chewable Tablet PO 81 mg DAILY [facility] Administration Atorvastatin Calcium 80 mg 01/25/25 21:00 01/26/25 21:32 Atorvastatin 40 Mg Tablet PO 80 mg HS [facility] Administration Docusate Sodium 100 mg 01/25/25 21:00 01/27/25 09:03 Docusate Sodium 100 Mg Capsule PO Not Given Q12H [facility] Flecainide Acetate 50 mg 01/25/25 21:00 01/27/25 09:02 Flecainide Acetate 50 Mg Tablet PO 50 mg Q12HR [facility] Administration Flecainide Acetate 100 mg 01/25/25 21:00 01/27/25 09:01 Flecainide Acetate 100 Mg Tablet PO 100 mg Q12HR [facility] Administration Fluticasone/Umeclidinium/Vilanterol 1 puff 01/26/25 09:00 01/27/25 10:31 Fluticasone/Umeclidin/Vilanter 200-62.5-25 Mcg Ellipta INHALATION 1 puff Q24H [facility] Administration Hydrochlorothiazide 12.5 mg 01/26/25 09:00 01/26/25 08:48 Hydrochlorothiazide 6.25 Mg Tablet PO 12.5 mg DAILY [facility] Administration Vancomycin HCl 1,500 mg in 500 mls @ 250 mls/hr 01/27/25 12:00 01/27/25 11:28 Vancomycin 1,500 Mg/Ns 500 Ml IVPB 01/27/25 13:59 250 mls/hr ONCE ONE Administration Lactated Ringer's 1,000 mls @ 30 mls/hr 01/27/25 10:45 Lr - Lactated Ringers Iv IV CONT .Q24H [facility] Metoprolol Succinate 25 mg 01/26/25 09:00 01/27/25 09:02 Metoprolol Succinate Ext Rel 25 Mg Tabcr PO 25 mg DAILY [facility] Administration Morphine Sulfate 2 mg 01/25/25 13:54 Morphine Sulfate (*Crx) 2 Mg/Ml Inj IV PUSH Q2H PRN Pain Rated 7-10 Ondansetron HCl 4 mg 01/25/25 13:54 Ondansetron Inj 4 Mg/2 Ml Vial IV PUSH Q4H PRN Nausea Oxycodone HCl 2.5 mg 01/26/25 08:35 01/27/25 12:41 Oxycodone Hcl (*Crx) 2.5 Mg Tab Ir PO Not Given Q4H [facility] Oxycodone HCl 5 mg 01/26/25 08:31 01/27/25 11:30 Oxycodone Hcl (*Crx) 5 Mg Tab Ir PO 5 mg Q4H PRN Administration Pain Rated 4-10 Polyethylene Glycol 17 gm 01/27/25 09:00 Polyethylene Glycol 3350 17 Gm Powd.Pack PO QAM [facility] Valacyclovir HCl 500 mg 01/26/25 09:00 01/26/25 08:49 Valacyclovir Hcl 500 Mg Tablet PO 500 mg DAILY [facility] Administration Radiology Results: ITS Impressions Chest X-Ray 01/25/25 13:21 IMPRESSION: 1. Mild atelectasis at right lung base. Hip/Pelvis X-Ray 01/25/25 13:22 IMPRESSION: 1. Subcapital fracture of left femoral neck. 2. Mild osteoarthritis of the hips. Knee X-Ray 01/25/25 13:24 IMPRESSION: 1. Mild left knee osteoarthritis. Hip X-Ray 01/25/25 15:29 IMPRESSION: Degenerative disease without acute fracture or dislocation Labs Labs: Laboratory Results - last 24 hr 01/27/25 06:22 WBC 6.5 RBC 3.47 L Hgb 11.3 L Hct 33.9 L MCV 97.7 MCH 32.6 MCHC 33.3 RDW 12.2 Plt Count 149 L MPV 8.5 Sodium 134 L Potassium 4.6 Chloride 97 L Carbon Dioxide 32 H Anion Gap 5 BUN 23 H Creatinine 1.18 Estim Creat Clear Calc 53 Estimated GFR 60 Glucose 105 Calcium 9.1 Total Bilirubin 1.1 AST 36 ALT 25 Alkaline Phosphatase 87 Total Protein 6.0 L Albumin 3.5
--- NOTE | 2025-01-27 13:00 | SUR.PREOP ---
Hair removal and scrub differed due to pain to left hip with touch or movement.
--- NOTE | 2025-01-27 13:25 | WPDHPUPDATE1 ---
History and Physical Update Update Date/Time: 01/27/25 13:25 History and Physical has been reviewed, including an updated exam of the patient. There are NO changes in the patient's condition. Risks, benefits, and alternatives have been discussed and questions answered. Patient agrees to proceed with procedure.
--- NOTE | 2025-01-27 13:27 | P.PNAN_ITS ---
Anes - Initial Pre Proc Eval Procedure: Operation Date: 01/27/25 13:30 Proposed Procedures p Left Bipolar - Eliot Siu MD Date/Time: 01/27/25 13:27 Surgeon: Richar Roper MD Pre Op Diagnosis: Left Hip Fracture Patient Data Age: 74 Gender: M Height: 1.83 m Weight: 100.5 kg Last Vital Signs Temp 98.3 F 01/27/25 12:23 Pulse 61 01/27/25 12:23 Resp 18 01/27/25 12:23 BP 124/55 L 01/27/25 12:23 Pulse Ox 99 01/27/25 12:23 O2 Del Method Room Air 01/27/25 12:23 Allergies Allergy/AdvReac Type Severity Reaction Status Date / Time gabapentin Allergy Intermediate Rash Verified 01/25/25 09:52 Home Medications ?Medication ?Instructions ?Recorded ?Confirmed ?Type flecainide 150 mg tablet 150 mg PO Q12H 12/21/19 01/25/25 History metoprolol succinate 25 mg 25 mg PO DAILY 12/21/19 01/25/25 History tablet,extended release 24 hr albuterol sulfate 90 mcg/actuation 2 puff inhalation Q4H PRN 01/25/25 01/25/25 History aerosol inhaler shortness of breath or wheezing apixaban 5 mg tablet (Eliquis) 5 mg PO Q12H 01/25/25 01/25/25 History aspirin 81 mg chewable tablet 81 mg PO DAILY 01/25/25 01/25/25 History atorvastatin 20 mg tablet 80 mg PO HS 01/25/25 01/25/25 History cholecalciferol (vitamin D3) 125 5,000 unit PO MOWEFR 01/25/25 01/25/25 History mcg (5,000 unit) tablet (Vitamin D3) docusate sodium 100 mg capsule 100 mg PO Q12H 01/25/25 01/25/25 History fluticasone fur. 200 mcg-umeclid 1 inh inhalation Q24H 01/25/25 01/25/25 History 62.5 mcg-vilant 25 mcg inhalat.powder (Trelegy Ellipta) hydrochlorothiazide 25 mg tablet 12.5 mg PO DAILY 01/25/25 01/25/25 History valacyclovir 500 mg tablet 500 mg PO DAILY 01/25/25 01/25/25 History Laboratory Tests 01/27/25 06:22 WBC 6.5 K/mm3 (4.5-10.0) RBC 3.47 L M/mm3 (4.6-6.20) Hgb 11.3 L g/dL (14.0-18.0) Hct 33.9 L % (42.0-52.0) MCV 97.7 fl (80-100) MCH 32.6 pg (26-34) MCHC 33.3 g/dl (32-36) RDW 12.2 % (11.5-14.5) Plt Count 149 L k/mm3 (150-375) MPV 8.5 fl (7.4-10.4) Sodium 134 L mmol/L (137-145) Potassium 4.6 mmol/L (3.4-5.0) Chloride 97 L mmol/L (98-107) Carbon Dioxide 32 H mmol/L (22-30) Anion Gap 5 mmol/L (4-12) BUN 23 H mg/dL (9-20) Creatinine 1.18 mg/dL (0.7-1.3) Estim Creat Clear Calc 53 ml/min Estimated GFR 60 (59 - ) Glucose 105 mg/dL (65-110) Calcium 9.1 mg/dL (8.4-10.2) Total Bilirubin 1.1 mg/dL (0.2-1.3) AST 36 U/L (17-59) ALT 25 U/L (6-50) Alkaline Phosphatase 87 U/L (38-126) Total Protein 6.0 L g/dL (6.3-8.2) Albumin 3.5 g/dL (3.5-5.1) Patient hx anesthesia problems: none Family hx anesthesia problems: none Results Review: All pre-operative results and documents have been reviewed as part of the pre- operative evaluation. [facility] Past Medical History Medical History CKD (chronic kidney disease) Orthostatic hypotension Waldenstrom macroglobulinemia S/P bone marrow transplant 2015 COPD (chronic obstructive pulmonary disease) Neuropathy Atrial fibrillation Family History Family History Sibling Lung cancer Colorectal cancer COPD (chronic obstructive pulmonary disease) Liver cancer Father COPD (chronic obstructive pulmonary disease) Social History Social History Smoking status: Former smoker Smoking end date: 05/24/00 Do You Feel Safe in your Home?: Yes Lack of Transportation: No Lack of Food: Never True Current Housing: I Have Housing Concerned About Future Housing: No Difficulty Paying Gas/Electric Bills: No Difficulty Paying for Meds: No Currently Unemployed: No Education: Decline to Answer Difficulty w/ Childcare or Family Care: No Gender identity (if verbalized by the patient): Male Spiritual care concerns: No Anes - Eval Final PreProcedure Day of Procedure 01/27/25 13:27 Patient weight: obese Heart: regular rate and rhythm Lungs: normal air movement Airway: Mallampati scale Neurological: alert and oriented Last oral intake: >/= 8 hours ASA classification: III Emergent: no Anesthetic plan: proceed Anesthesia type and monitoring: general ETT and standard monitoring Results Review: All pre-operative results and documents have been reviewed as part of the pre- operative evaluation. Pt w chr a fib, COPD, waldenstroms macroglobulinemia, ex smoker quit 1999. Cardiology note and clearance reviewed and appreciated. Pt had mechanical fall, now for bipolar hip surgery. Informed Consent: The patient's anesthetic plan and its attendant risks and benefits were discussed with the patient/family/POA. Questions were solicited and answers provided to the satisfaction of the patient/family/POA.
--- NOTE | 2025-01-27 13:43 | PM.PNORT ---
Progress Note: A&P Assessment and Plan (1) Left displaced femoral neck fracture: Code(s): S72.002A - Fracture of unspecified part of neck of left femur, initial encounter for closed fracture Status: Acute Assessment and Plan: See earlier note from today (2) Right foot drop: Code(s): M21.371 - Foot drop, right foot Status: Acute Subjective Subjective Date/Time Seen: 01/27/25 13:43 Objective Data Vital Signs Vital Signs: Vital Signs - 24 hr 01/26/25 14:00 01/26/25 20:50 01/27/25 05:15 Temperature 36.8 C 36.7 C 35.9 C L Pulse Rate 58 L 62 62 Respiratory Rate 18 18 16 Blood Pressure 90/63 L 117/79 122/72 Pulse Oximetry 95 97 96 Oxygen Delivery 01/27/25 08:00 01/27/25 09:01 01/27/25 09:01 Temperature Pulse Rate 63 63 63 Respiratory Rate 16 Blood Pressure 109/60 Pulse Oximetry 96 Oxygen Delivery Room Air 01/27/25 09:02 01/27/25 09:02 01/27/25 10:31 Temperature Pulse Rate 63 63 Respiratory Rate Blood Pressure Pulse Oximetry 95 Oxygen Delivery Room Air 01/27/25 12:23 Temperature 36.8 C Pulse Rate 61 Respiratory Rate 18 Blood Pressure 124/55 L Pulse Oximetry 99 Oxygen Delivery Room Air Intake/Output Intake/Output: Intake & Output 01/24/25 01/25/25 01/26/25 01/27/25 23:59 23:59 23:59 23:59 Intake Total 240 1160 500 Output Total 2300 825 Balance 240 -1140 -325 Meds/Results Medications: Active Medications Generic Name Dose Route Start Last Admin Trade Name Freq PRN Reason Stop Dose Admin Acetaminophen 650 mg 01/26/25 08:35 01/27/25 12:41 Acetaminophen 325 Mg Tablet PO Not Given Q4H [facility] Albuterol 2 puff 01/25/25 19:10 Albuterol Sulfate (*Sp) Aerosol 1 Puff INHALATION Q4H PRN shortness of breath or wheezing Aspirin 81 mg 01/26/25 09:00 01/26/25 08:42 Aspirin 81 Mg Chewable Tablet PO 81 mg DAILY [facility] Administration Atorvastatin Calcium 80 mg 01/25/25 21:00 01/26/25 21:32 Atorvastatin 40 Mg Tablet PO 80 mg HS [facility] Administration Docusate Sodium 100 mg 01/25/25 21:00 01/27/25 09:03 Docusate Sodium 100 Mg Capsule PO Not Given Q12H [facility] Flecainide Acetate 50 mg 01/25/25 21:00 01/27/25 09:02 Flecainide Acetate 50 Mg Tablet PO 50 mg Q12HR [facility] Administration Flecainide Acetate 100 mg 01/25/25 21:00 01/27/25 09:01 Flecainide Acetate 100 Mg Tablet PO 100 mg Q12HR [facility] Administration Fluticasone/Umeclidinium/Vilanterol 1 puff 01/26/25 09:00 01/27/25 10:31 Fluticasone/Umeclidin/Vilanter 200-62.5-25 Mcg Ellipta INHALATION 1 puff Q24H [facility] Administration Hydrochlorothiazide 12.5 mg 01/26/25 09:00 01/26/25 08:48 Hydrochlorothiazide 6.25 Mg Tablet PO 12.5 mg DAILY [facility] Administration Vancomycin HCl 1,500 mg in 500 mls @ 250 mls/hr 01/27/25 12:00 01/27/25 11:28 Vancomycin 1,500 Mg/Ns 500 Ml IVPB 01/27/25 13:59 250 mls/hr ONCE ONE Administration Lactated Ringer's 1,000 mls @ 30 mls/hr 01/27/25 10:45 01/27/25 12:20 Lr - Lactated Ringers Iv IV CONT 30 mls/hr .Q24H [facility] Administration Metoprolol Succinate 25 mg 01/26/25 09:00 01/27/25 09:02 Metoprolol Succinate Ext Rel 25 Mg Tabcr PO 25 mg DAILY [facility] Administration Morphine Sulfate 2 mg 01/25/25 13:54 Morphine Sulfate (*Crx) 2 Mg/Ml Inj IV PUSH Q2H PRN Pain Rated 7-10 Ondansetron HCl 4 mg 01/25/25 13:54 Ondansetron Inj 4 Mg/2 Ml Vial IV PUSH Q4H PRN Nausea Oxycodone HCl 2.5 mg 01/26/25 08:35 01/27/25 12:41 Oxycodone Hcl (*Crx) 2.5 Mg Tab Ir PO Not Given Q4H [facility] Oxycodone HCl 5 mg 01/26/25 08:31 01/27/25 11:30 Oxycodone Hcl (*Crx) 5 Mg Tab Ir PO 5 mg Q4H PRN Administration Pain Rated 4-10 Polyethylene Glycol 17 gm 01/27/25 09:00 Polyethylene Glycol 3350 17 Gm Powd.Pack PO QAM [facility] Valacyclovir HCl 500 mg 01/26/25 09:00 01/26/25 08:49 Valacyclovir Hcl 500 Mg Tablet PO 500 mg DAILY [facility] Administration Radiology Results: ITS Impressions Chest X-Ray 01/25/25 13:21 IMPRESSION: 1. Mild atelectasis at right lung base. Hip/Pelvis X-Ray 01/25/25 13:22 IMPRESSION: 1. Subcapital fracture of left femoral neck. 2. Mild osteoarthritis of the hips. Knee X-Ray 01/25/25 13:24 IMPRESSION: 1. Mild left knee osteoarthritis. Hip X-Ray 01/25/25 15:29 IMPRESSION: Degenerative disease without acute fracture or dislocation Labs Labs: Laboratory Results - last 24 hr 01/27/25 06:22 WBC 6.5 RBC 3.47 L Hgb 11.3 L Hct 33.9 L MCV 97.7 MCH 32.6 MCHC 33.3 RDW 12.2 Plt Count 149 L MPV 8.5 Sodium 134 L Potassium 4.6 Chloride 97 L Carbon Dioxide 32 H Anion Gap 5 BUN 23 H Creatinine 1.18 Estim Creat Clear Calc 53 Estimated GFR 60 Glucose 105 Calcium 9.1 Total Bilirubin 1.1 AST 36 ALT 25 Alkaline Phosphatase 87 Total Protein 6.0 L Albumin 3.5
[2025-01-27] MEDS: ceFAZolin 2 GM/D5W 50 ML 2 GM/50 ML BAG IVPB ×2 (13:44→22:00)
[2025-01-27] MEDS: SODIUM CHLORIDE 0.9% IV 38.7 ML, MORPHINE SULFATE INJ (*CRX) 2 MG, ROPivacaine HCL 1% 2... INFILTRATE (14:45)
[2025-01-27] MEDS: ceFAZolin SODIUM 1 GM VIAL 3 GM (14:48)
[2025-01-27] MEDS: TRANEXAMIC ACID 1,000 MG/10 ML AMPUL 1000 MG IV PUSH (15:49)
[2025-01-27] MEDS: ceFAZolin SODIUM 1 GM VIAL IV PUSH (15:51)
--- NOTE | 2025-01-27 16:34 | P.OP_ITS ---
Procedure Note - Detailed Date of Procedure 01/27/25 Pre-op Diagnosis Left Hip Fracture Post-op Diagnosis Same Procedure Performed Bipolar hemiarthroplasty left hip Surgeon Eliot Siu MD Technical Account Manager Aly Anesthesia General Description of Procedure Patient was brought to the operating room and general anesthesia was administered. He received 2 g of Ancef weight based vancomycin 1 g of TXA preoperatively. He was placed in the lateral decubitus position. We had a rolled a little bit to the supine direction because of his ileostomy so we would not have the anterior abdominal pad impingement on the ostomy. The left hip was scrubbed with chlorhexidine clot off and allowed to dry in left hip prepped and draped usual fashion using DuraPrep and Ioban. A 7 in longitudinal incision was made curving posteriorly proximally. The fascia was incised more longitudinally centered over the greater trochanter. The abductors were in very good condition. Anterior 50% of the gluteus medius and gluteus minimus were elevated off the greater trochanter. Capsule was incised superiorly and elevated off the anterior intertrochanteric line. Femoral neck osteotomy was made according to preoperative templating. Femoral head was removed. It measured 56.5 mm in the 57 head fit properly in the acetabulum. Posterior comminution extended about 2 mm below the level of the neck cut but after calcar planing the neck cut was below the comminution completely. The femoral head and the piece of neck that was removed was sent for path because of his history of cancer. I did not see any evidence however of a bone lesion. The fat marrow was aspirated from the femoral canal. The canal was broached up to a size 7. I obtained intraoperative x-ray which showed that the 7 was undersized and we could see we were a bit short as the stem was countersunk. The neck cut was appropriate. We broached to a size 9 which achieved complete torsional stability. Trialing with the 1.5 head we had equal leg lengths on AP pelvis x-ray. We found it extremely difficult to reduce the 5 mm head construct using the standard offset neck. After calcar planing, The size 9 standard offset Actis stem was impacted and seated fully there were no cracks noted. We trialed again and the +5 was very tight the 1.5 had appropriate soft tissue tension and this was assembled to the 57 mm bipolar head after thorough irrigation of the wound the hip reduced stability reconfirmed and there was full range of motion of the hip. Local anesthetic cocktail was injected into the periarticular soft tissues. The superior capsular incision was closed with running 2. At the bone. Gluteus medius and minimus were reattached the anterior greater trochanter with 3 5. Ethibond through bone. The split proximally and distally closed with 2. Ethibond. Fascia was closed with interrupted 2. Vicryl then running 1. Un idirectional barbed Stratafix sutures. Drain placed deep in the subQ. Skin closed with 2 subcutaneous Vicryl, 3-0 Monocryl subcuticular and glue. EBL was 200 cc. Additional 1 g of Ancef and 1 g of TXA given time wound closure. The cortical bone around the femoral neck was thin but the calcar bone was adequately thick and we knew from the x-rays that he has very good cortical bone therefore we will allow to be weight-bearing as tolerated with a walker after surgery. Estimated Blood Loss 200 Urine Output 300 [facility] Billing Surgery - Charge Forward: Surgery Billing (Bipolar hemiarthroplasty left hip.)
--- NOTE | 2025-01-27 16:50 | PM.OP ---
Procedure Note - Brief Procedure Note - Brief Date of procedure: 01/27/25 Left Hip Fracture Procedure performed: Left bipolar hemiarthroplasty Surgeon: ZOYA Prasad Findings: 74-year-old male with a left bipolar hemiarthroplasty on 01/27. I was involved in the procedure including positioning the patient on the OR table in 1st assisting through the time of surgery. Total time spent was 3 hours Urine output (mL): 300
[2025-01-27] MEDS: ONDANSETRON INJ 4 MG/2 ML VIAL IV PUSH (17:39)
[2025-01-27] MEDS: ATORVASTATIN 40 MG TABLET 80 MG PO (21:58)
[2025-01-28] VITALS (13 sets, daily range): BP systolic 88–137; BP diastolic 52–64; PULSE 59–70; RESP 16–20; TEMP 36.4–36.9; O2SAT 90–99
[2025-01-28] MEDS: VANCOMYCIN 1,000 MG/NS 250 ML 1,000 MG/250 ML BAG 250 MG IVPB ×2 (01:01→10:45)
[2025-01-28] MEDS: ACETAMINOPHEN 325 MG TABLET 650 MG PO ×6 (01:04→21:15)
[2025-01-28] MEDS: oxyCODONE HCL (*CRX) 2.5 MG TAB IR PO ×6 (01:05→21:13)
[2025-01-28] MEDS: ceFAZolin 2 GM/D5W 50 ML 2 GM/50 ML BAG IVPB ×2 (06:22→15:45)
[2025-01-28 06:54] LABS: Basophils Percent Auto 0.1 % (0.2-1.2); Hematocrit 30.8 % (42.0-52.0); Hemoglobin 10.3 g/dL (14.0-18.0); Immature Granulocyte Absolute 0.04 K/mm3 (0.00-0.031); Immature Granulocyte Percent A 0.5 % (0-0.5); Lymphocytes Absolute Auto 0.45 K/mm3 (0.9-3.2); Lymphocytes Percent Auto 5.6 % (18.3-44.2); Mean Corpuscular HGB Conc 33.4 g/dl (32-36); Mean Corpuscular Volume 98.7 fl (80-100); Mean Platelet Volume 8.7 fl (7.4-10.4); Monocytes Absolute Auto 0.9 K/mm3 (0.1-0.6); Monocytes Percent Auto 11.3 % (2.6-8.5); Neutrophils Absolute Auto 6.6 K/mm3 (1.3-6.7); Neutrophils Percent Auto 82.5 % (45.5-73.1); Platelet Count Result 154 k/mm3 (150-375); Red Blood Count 3.12 M/mm3 (4.6-6.20); Red Cell Distribution Width 11.9 % (11.5-14.5)
[2025-01-28 07:11] LABS: Albumin Level 3.2 g/dL (3.5-5.1); Alkaline Phosphatase 72 U/L (38-126); Anion Gap 7 mmol/L (4-12); Aspartate Amino Transferase 43 U/L (17-59); Bilirubin,Total 0.8 mg/dL (0.2-1.3); Blood Urea Nitrogen 21 mg/dL (9-20); Calcium 8.5 mg/dL (8.4-10.2); Carbon Dioxide 29 mmol/L (22-30); Chloride 96 mmol/L (98-107); Estimated CRCL calculation 62 ml/min; Estimated Glomerular Filt Rate > 60; Glucose 117 mg/dL (65-110); Potassium 4.6 mmol/L (3.4-5.0); Sodium 132 mmol/L (137-145)
[2025-01-28 07:16] LABS: Alanine Aminotransferase 30 U/L (6-50)
[2025-01-28] MEDS: METOPROLOL SUCCINATE EXT REL 25 MG TABCR PO (08:49)
[2025-01-28] MEDS: SENNA/DOCUSATE SODIUM TABLET 2 TAB PO ×2 (08:49→17:40)
[2025-01-28] MEDS: hydroCHLOROthiazide 6.25 MG TABLET 12.5 MG PO (08:49)
[2025-01-28] MEDS: FLECAINIDE ACETATE 100 MG TABLET PO ×2 (08:49→21:15)
[2025-01-28] MEDS: APIXABAN 2.5 MG TABLET PO ×3 (08:49→21:16)
[2025-01-28] MEDS: FLECAINIDE ACETATE 50 MG TABLET PO ×2 (08:49→21:15)
[2025-01-28] MEDS: ASPIRIN 81 MG CHEWABLE TABLET PO (08:49)
[2025-01-28] MEDS: valACYclovir HCL 500 MG TABLET PO (08:49)
[2025-01-28] MEDS: polyethylene glycoL 3350 17 GM POWD.PACK PO (08:50)
[2025-01-28] MEDS: FLUTICASONE/UMECLIDIN/VILANTER 200-62.5-25 MCG ELLIPTA 1 PUFF INHALATION (09:14)
--- NOTE | 2025-01-28 09:54 | P.PNIM_ITS ---
Progress Note: A&P Assessment and Plan (1) Closed fracture of left hip: Qualifiers: Encounter type: initial encounter Qualified Code(s): S72.002A - Fracture of unspecified part of neck of left femur, initial encounter for closed fracture Code(s): S72.002A - Fracture of unspecified part of neck of left femur, initial encounter for closed fracture Status: Inactive Assessment and Plan: * hip/pelvic XR: 1. Subcapital fracture of left femoral neck. 2. Mild osteoarthritis of the hips. * knee XR (L) and CXR negative for trauma or acute findings * orthopedics consulted, awaiting formal recs * tentative surgery date 01/27, patient on Eliquis (holding, repeat coags tomorrow) * orthopedist consulted Cardiology and Nephrology due to history of AFib and possible recent onset CKD but appears VICTOR HUGO resolved with IV fluids * EKG: SR 1st degree block 68 * NPO for possible surgery 01/27/2025 * analgesics and antiemetics p.r.n. * will need PT/OT postop * Can resume Eliquis post surgery 01/27: * Surgery today scheduled * pain management * PT/OT post op plan for Rehab * bringing patient boot for his foot drop tomorrow prior to PT 01/28: * Post-op day 1 * PT/OT * Resumed Eliquis Ortho would like 2.5 BID while hospitalized in can likely increase to home dose of 5 mg and discharge. (2) Atrial fibrillation: Code(s): I48.91 - Unspecified atrial fibrillation Status: Acute Assessment and Plan: * EKG SR 68 with first-degree block * will resume Eliquis post surgery and resume metoprolol * continuous cardiac monitoring * cardiology has been consulted ortho surgical clearance (3) Stage 3a chronic kidney disease: Code(s): N18.31 - Chronic kidney disease, stage 3a Status: Chronic Assessment and Plan: * Cr peaked at 1.51 around baseline * Resolved with IV fluids Cr 1.24 * nephrology consulted by ortho for evaluation pre-surgery cleared per Nephrology * From renal function post surgery Plan Code status: Full code per patient DVT prophylaxis: Eliquis post surgery/SCd's Stress ulcer prophylaxis: NA PT/OT notes: PT/OT post surgery Disposition: patient continues admission to the medical unit for a left hip fracture and will likely be for surgery tomorrow 01/27 PT/ OT evaluation post surgery for further discharge planning family requesting rehab. Time Spent With Patient Time with patient: 15 - 25 minutes Subjective Date/time seen: 01/28/25 09:54 Interval history: patient is a 74-year-old male who was admitted for further evaluation of a fracture to the left femoral neck after a fall at home. 01/28/2025: Patient with no complaints worked with PT weight bearing as tolerated with YesGraph. Still unsteady gait. Hgb mild drop as expected postop will continue to monitor. Review of Systems Review of Systems: All systems reviewed & are unremarkable except as noted in HPI and below Exam Narrative: * GENERAL: Alert and oriented x 3. No acute distress. * HEENT: Moist mucous membranes. * LUNGS: Clear to auscultation bilaterally. No accessory muscle use. * CARDIOVASCULAR: Regular rate and rhythm. No murmur. No JVD. S1-S2 * ABDOMEN: Soft, non tenderness and non-distended. No palpable masses. * EXTREMITIES: Pelvic tenderness. 2+pulses * SKIN: No rashes or lesions. Skin warm, dry. * NEUROLOGIC: No focal neurological deficits. CN II-XII grossly intact * PSYCHIATRIC: Appropriate mood and affect. Objective Data Vital Signs Vital Signs: Vital Signs - 24 hr 01/27/25 10:31 01/27/25 12:23 01/27/25 16:50 Temperature 98.3 F 97.5 F L Pulse Rate 61 58 L Respiratory Rate 18 16 Blood Pressure 124/55 L 86/44 L Pulse Oximetry 95 99 100 Oxygen Delivery Room Air Room Air Simple Face Mask Oxygen Flow Rate 8 01/27/25 17:00 01/27/25 17:05 01/27/25 17:20 Temperature Pulse Rate 62 65 Respiratory Rate 18 20 Blood Pressure 107/42 L 103/49 L 110/55 L Pulse Oximetry 95 99 Oxygen Delivery Simple Face Mask Simple Face Mask Oxygen Flow Rate 8 8 01/27/25 17:35 01/27/25 17:50 01/27/25 18:05 Temperature Pulse Rate 64 62 60 Respiratory Rate 17 18 16 Blood Pressure 106/57 L 105/56 L 103/49 L Pulse Oximetry 100 96 98 Oxygen Delivery Simple Face Mask Nasal Cannula Nasal Cannula Oxygen Flow Rate 8 2 2 01/27/25 18:18 01/27/25 18:30 01/27/25 18:45 Temperature 96.5 F L 98.0 F Pulse Rate 61 63 66 Respiratory Rate 18 18 18 Blood Pressure 111/54 L 118/59 L 109/58 L Pulse Oximetry 96 98 98 Oxygen Delivery Nasal Cannula Oxygen Flow Rate 2 01/27/25 19:15 01/27/25 20:00 01/27/25 20:25 Temperature 96.8 F L 97.4 F L Pulse Rate 65 65 65 Respiratory Rate 20 20 Blood Pressure 123/62 119/62 Pulse Oximetry 98 97 Oxygen Delivery Oxygen Flow Rate 01/27/25 23:50 01/28/25 00:00 01/28/25 04:00 Temperature 97.7 F Pulse Rate 61 62 60 Respiratory Rate 18 Blood Pressure 119/64 Pulse Oximetry 96 Oxygen Delivery Oxygen Flow Rate 01/28/25 04:30 01/28/25 08:30 01/28/25 09:16 Temperature 97.7 F 97.7 F Pulse Rate 63 59 L Respiratory Rate 20 18 Blood Pressure 137/64 100/61 Pulse Oximetry 97 99 99 Oxygen Delivery Nasal Cannula Oxygen Flow Rate 2 Intake/Output Intake/Output: Intake & Output 01/25/25 01/26/25 01/27/2525 23:59 23:59 23:59 23:59 Intake Total 240 1160 2120 650 Output Total 2300 1775 600 Balance 240 -1140 345 50 Meds/Results Medications: Active Medications Generic Name Dose Route Start Last Admin Trade Name Freq PRN Reason Stop Dose Admin Acetaminophen 650 mg 01/26/25 08:35 01/28/25 08:49 Acetaminophen 325 Mg Tablet PO 650 mg Q4H MARCO Administration Albuterol 2 puff 01/25/25 19:10 Albuterol Sulfate (*Sp) Aerosol 1 Puff INHALATION Q4H PRN shortness of breath or wheezing Apixaban 2.5 mg 01/28/25 09:00 01/28/25 08:49 Apixaban 2.5 Mg Tablet PO 2.5 mg Q12HR MARCO Administration Aspirin 81 mg 01/26/25 09:00 01/28/25 08:49 Aspirin 81 Mg Chewable Tablet PO 81 mg DAILY MARCO Administration Atorvastatin Calcium 80 mg 01/25/25 21:00 01/27/25 21:58 Atorvastatin 40 Mg Tablet PO 80 mg HS MARCO Administration Flecainide Acetate 50 mg 01/25/25 21:00 01/28/25 08:49 Flecainide Acetate 50 Mg Tablet PO 50 mg Q12HR MARCO Administration Flecainide Acetate 100 mg 01/25/25 21:00 01/28/25 08:49 Flecainide Acetate 100 Mg Tablet PO 100 mg Q12HR MARCO Administration Fluticasone/Umeclidinium/Vilanterol 1 puff 01/26/25 09:00 01/28/25 09:14 Fluticasone/Umeclidin/Vilanter 200-62.5-25 Mcg Ellipta INHALATION 1 puff Q24H MARCO Administration Hydrochlorothiazide 12.5 mg 01/26/25 09:00 01/28/25 08:49 Hydrochlorothiazide 6.25 Mg Tablet PO 12.5 mg DAILY MARCO Administration Hydromorphone HCl 1 mg 01/27/25 18:21 Hydromorphone Hcl Inj (*Crx) 1 Mg/Ml Syr IV PUSH Q2H PRN Breakthrough Pain Rated 7-10 or NPO Hydromorphone HCl 0.5 mg 01/27/25 18:21 Hydromorphone Hcl Inj (*Crx) 1 Mg/Ml Syr IV PUSH Q2H PRN Breakthrough Pain Rated 4-6 or NPO Cefazolin Sodium 2 gm in 50 mls @ 100 mls/hr 01/27/25 22:00 01/28/25 06:22 Ancef 2 Gm/D5w 50 Ml IVPB 01/28/25 14:29 100 mls/hr Q8H MARCO Administration Vancomycin HCl 1,000 mg in 250 mls @ 250 mls/hr 01/27/25 23:00 01/28/25 01:01 Vancomycin 1,000 Mg/Ns 250 Ml IVPB 01/28/25 11:59 250 mls/hr Q12H MARCO Administration Metoprolol Succinate 25 mg 01/26/25 09:00 01/28/25 08:49 Metoprolol Succinate Ext Rel 25 Mg Tabcr PO 25 mg DAILY MARCO Administration Naloxone HCl 0.1 mg 01/27/25 18:21 Naloxone Hcl 0.4 Mg/Ml Vial IV PUSH Q2M PRN Opiate Reversal Oxycodone HCl 2.5 mg 01/26/25 08:35 01/28/25 08:50 Oxycodone Hcl (*Crx) 2.5 Mg Tab Ir PO 2.5 mg Q4H MARCO Administration Oxycodone HCl 5 mg 01/26/25 08:31 01/27/25 11:30 Oxycodone Hcl (*Crx) 5 Mg Tab Ir PO 5 mg Q4H PRN Administration Pain Rated 4-10 Polyethylene Glycol 17 gm 01/27/25 09:00 01/28/25 08:50 Polyethylene Glycol 3350 17 Gm Powd.Pack PO 17 gm QAM MARCO Administration Senna/Docusate Sodium 2 tab 01/27/25 18:21 01/28/25 08:49 Senna/Docusate Sodium Tablet PO 2 tab BID MARCO Administration Valacyclovir HCl 500 mg 01/26/25 09:00 01/28/25 08:49 Valacyclovir Hcl 500 Mg Tablet PO 500 mg DAILY MARCO Administration Radiology Results: ITS Impressions Chest X-Ray 01/25/25 13:21 IMPRESSION: 1. Mild atelectasis at right lung base. Knee X-Ray 01/25/25 13:24 IMPRESSION: 1. Mild left knee osteoarthritis. Hip X-Ray 01/25/25 15:29 IMPRESSION: Degenerative disease without acute fracture or dislocation Hip/Pelvis X-Ray 01/27/25 16:52 IMPRESSION: No acute osseous abnormality. Left hip arthroplasty. Labs Labs: Laboratory Results - last 24 hr 01/28/25 06:37 WBC 8.0 RBC 3.12 L Hgb 10.3 L Hct 30.8 L MCV 98.7 MCH 33.0 MCHC 33.4 RDW 11.9 Plt Count 154 MPV 8.7 Immature Gran % (Auto) 0.5 Neut % (Auto) 82.5 H Lymph % (Auto) 5.6 L [place] % (Auto) 11.3 H Eos % (Auto) 0.0 Baso % (Auto) 0.1 L Lymph # (Auto) 0.45 L [place] # (Auto) 0.9 H Eos # (Auto) 0.0 Baso # (Auto) 0.0 Abs Immat Gran (auto) 0.04 H Absolute Neuts (auto) 6.6 Absolute Nucleated RBC 0.000 Nucleated RBC % 0.0 Sodium 132 L Potassium 4.6 Chloride 96 L Carbon Dioxide 29 Anion Gap 7 BUN 21 H Creatinine 1.00 Estim Creat Clear Calc 62 Estimated GFR > 60 Glucose 117 H Calcium 8.5 Total Bilirubin 0.8 AST 43 ALT 30 Alkaline Phosphatase 72 Total Protein 6.0 L Albumin 3.2 L Quality VTE Prophylaxis VTE prophylaxis: mechanical ordered and pharmacologic ordered (eliquis post surgery) -Patient's previous records reviewed on admission -ER notes reviewed in detail on admission -discussed all findings and current treatment plan with patient/Family/POA -Consultations reviewed for recommendations -Patient's disposition for safe discharge discussed with case loader operator Dictation performed by [employer] direct speech recognition software, therefore delivery supervisor variants and typographical errors may occur. Hospitalist MIPS Advance Care Plan I have confirmed that the patient's Advanced Care Plan is present, code status is documented, or surrogate decision maker is listed in patient medical record.: Yes Medication Reconciliation I have utilized all available resources to obtain, update and review the patients current medications (includes all prescriptions, OTC, herbals, cannabis, and nutritional supplements).: Yes The patient is not eligible for med reconciliation; the patient is in a emergent medical situation where delaying treatment would jeopardize the patients health.: No
--- NOTE | 2025-01-28 10:03 | PM.PNORT ---
Progress Note: A&P Assessment and Plan (1) Left displaced femoral neck fracture: Code(s): S72.002A - Fracture of unspecified part of neck of left femur, initial encounter for closed fracture Status: Acute Assessment and Plan: Patient is postop day 1 after left hip bipolar hemiarthroplasty. He has been completely comfortable overnight. His hemoglobin is 10.3 presenting mild acute blood loss anemia. It was 11.3 preop. This is the expected drop. He has no swelling in the left thigh or lower extremity. His drain was removed from left hip wound. There has been no bleeding into the dressing. He has intact motor function left foot. Again he has peripheral neuropathy both lower extremities. He is alert and oriented therapy. Eliquis 2.5 mg q.12 hours has been started for DVT prophylaxis. He received his 1st dose at 9:00 a.m.. At some point we will increase his Eliquis to the 5 mg b.i.d. dose for prophylaxis against stroke from atrial fibrillation however it does not appear that he has had atrial fibrillation since 2014 cardioversion so risk of stroke from atrial fibrillation would be lower than the risk of bleeding into his hip the high-dose Eliquis at this time. We can probably switch him to the high does at time of discharge. Creatinine is further diminished at 1.0 today. Creatinine clearance 62. She seems to be euvolemic at this time. Platelets [id number] up from 149 yesterday. The femoral head and bone fragments were sent to pathology this given his history of Waldenstrom macroglobulinemia. The fractured surface did not appear to be pathologic on gross inspection during surgery. I spoke to his today about his footdrop. I learned that he normally walks with a Rollator walker when he is going on a long walk out problems. He does this so we can sit down when he needs to. He does not need to use a walker in the house. He will walk for a distance and then his legs become so weak that he must sit down and then after 2 minutes of rest he can get up and his legs have normal strength again. Given his history of footdrop on the right, this is very suspicious for pseudoclaudication associated with severe lumbar spinal stenosis. Patient's advised me that he had an MRI scan of his lumbar spine earlier in 2023 which showed no evidence of lumbar spinal stenosis. She is going to bring the report and the disc in for me to look at. He has been seeing an orthopedic surgeon at [facility] about that problem. He was told that he does not have lumbar spinal stenosis. He also sees an neurologist at [facility]. An alternative explanation for his complaints would be that he may have arterial vascular claudication. He did not have palpable pulses in his left foot. After I can review the MRI of the lumbar spine, we can consider further evaluation for vascular claudication of the lower extremity. He was concerned about the back of his left heel yesterday and the nurses put a pad on the back of his heel and I looked at the scan yesterday in the operating room the back of his left heel and look fine fortunately. 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 I have requested consultation with the clinical manager home care. Patient and his would like to have him therapy at acute rehab after discharge. Subjective Subjective Date/Time Seen: 01/28/25 10:03 Objective Data Vital Signs Vital Signs: Vital Signs - 24 hr 01/27/25 10:31 01/27/25 12:23 01/27/25 16:50 Temperature 36.8 C 36.4 C L Pulse Rate 61 58 L Respiratory Rate 18 16 Blood Pressure 124/55 L 86/44 L Pulse Oximetry 95 99 100 Oxygen Delivery Room Air Room Air Simple Face Mask Oxygen Flow Rate 8 01/27/25 17:00 01/27/25 17:05 01/27/25 17:20 Temperature Pulse Rate 62 65 Respiratory Rate 18 20 Blood Pressure 107/42 L 103/49 L 110/55 L Pulse Oximetry 95 99 Oxygen Delivery Simple Face Mask Simple Face Mask Oxygen Flow Rate 8 8 01/27/25 17:35 01/27/25 17:50 01/27/25 18:05 Temperature Pulse Rate 64 62 60 Respiratory Rate 17 18 16 Blood Pressure 106/57 L 105/56 L 103/49 L Pulse Oximetry 100 96 98 Oxygen Delivery Simple Face Mask Nasal Cannula Nasal Cannula Oxygen Flow Rate 8 2 2 01/27/25 18:18 01/27/25 18:30 01/27/25 18:45 Temperature 35.8 C L 36.7 C Pulse Rate 61 63 66 Respiratory Rate 18 18 18 Blood Pressure 111/54 L 118/59 L 109/58 L Pulse Oximetry 96 98 98 Oxygen Delivery Nasal Cannula Oxygen Flow Rate 2 01/27/25 19:15 01/27/25 20:00 01/27/25 20:25 Temperature 36.0 C L 36.3 C L Pulse Rate 65 65 65 Respiratory Rate 20 20 Blood Pressure 123/62 119/62 Pulse Oximetry 98 97 Oxygen Delivery Oxygen Flow Rate 01/27/25 23:50 01/28/25 00:00 01/28/25 04:00 Temperature 36.5 C Pulse Rate 61 62 60 Respiratory Rate 18 Blood Pressure 119/64 Pulse Oximetry 96 Oxygen Delivery Oxygen Flow Rate 01/28/25 04:30 01/28/25 08:30 01/28/25 09:16 Temperature 36.5 C 36.5 C Pulse Rate 63 59 L Respiratory Rate 20 18 Blood Pressure 137/64 100/61 Pulse Oximetry 97 99 99 Oxygen Delivery Nasal Cannula Oxygen Flow Rate 2 Intake/Output Intake/Output: Intake & Output 01/25/25 01/26/25 01/27/25 01/28/25 23:59 23:59 23:59 23:59 Intake Total 240 1160 2120 650 Output Total 2300 1775 600 Balance 240 -1140 345 50 Meds/Results Medications: Active Medications Generic Name Dose Route Start Last Admin Trade Name Freq PRN Reason Stop Dose Admin Acetaminophen 650 mg 01/26/25 08:35 01/28/25 08:49 Acetaminophen 325 Mg Tablet PO 650 mg Q4H MARCO Administration Albuterol 2 puff 01/25/25 19:10 Albuterol Sulfate (*Sp) Aerosol 1 Puff INHALATION Q4H PRN shortness of breath or wheezing Apixaban 5 mg 01/28/25 21:00 Apixaban 5 Mg Tablet PO Q12HR MARCO Apixaban 2.5 mg 01/28/25 10:05 Apixaban 2.5 Mg Tablet PO 01/28/25 10:06 ONCE ONE Aspirin 81 mg 01/26/25 09:00 01/28/25 08:49 Aspirin 81 Mg Chewable Tablet PO 81 mg DAILY MARCO Administration Atorvastatin Calcium 80 mg 01/25/25 21:00 01/27/25 21:58 Atorvastatin 40 Mg Tablet PO 80 mg HS MARCO Administration Doxycycline Hyclate 100 mg 01/28/25 21:00 Doxycycline Hyclate 100 Mg Tablet PO 02/07/25 20:59 Q12HR MARCO Flecainide Acetate 50 mg 01/25/25 21:00 01/28/25 08:49 Flecainide Acetate 50 Mg Tablet PO 50 mg Q12HR MARCO Administration Flecainide Acetate 100 mg 01/25/25 21:00 01/28/25 08:49 Flecainide Acetate 100 Mg Tablet PO 100 mg Q12HR MARCO Administration Fluticasone/Umeclidinium/Vilanterol 1 puff 01/26/25 09:00 01/28/25 09:14 Fluticasone/Umeclidin/Vilanter 200-62.5-25 Mcg Ellipta INHALATION 1 puff Q24H MARCO Administration Hydrochlorothiazide 12.5 mg 01/26/25 09:00 01/28/25 08:49 Hydrochlorothiazide 6.25 Mg Tablet PO 12.5 mg DAILY MARCO Administration Hydromorphone HCl 1 mg 01/27/25 18:21 Hydromorphone Hcl Inj (*Crx) 1 Mg/Ml Syr IV PUSH Q2H PRN Breakthrough Pain Rated 7-10 or NPO Hydromorphone HCl 0.5 mg 01/27/25 18:21 Hydromorphone Hcl Inj (*Crx) 1 Mg/Ml Syr IV PUSH Q2H PRN Breakthrough Pain Rated 4-6 or NPO Cefazolin Sodium 2 gm in 50 mls @ 100 mls/hr 01/27/25 22:00 01/28/25 06:22 Ancef 2 Gm/D5w 50 Ml IVPB 01/28/25 14:29 100 mls/hr Q8H MARCO Administration Vancomycin HCl 1,000 mg in 250 mls @ 250 mls/hr 01/27/25 23:00 01/28/25 01:01 Vancomycin 1,000 Mg/Ns 250 Ml IVPB 01/28/25 11:59 250 mls/hr Q12H MARCO Administration Metoprolol Succinate 25 mg 01/26/25 09:00 01/28/25 08:49 Metoprolol Succinate Ext Rel 25 Mg Tabcr PO 25 mg DAILY MARCO Administration Naloxone HCl 0.1 mg 01/27/25 18:21 Naloxone Hcl 0.4 Mg/Ml Vial IV PUSH Q2M PRN Opiate Reversal Oxycodone HCl 2.5 mg 01/26/25 08:35 01/28/25 08:50 Oxycodone Hcl (*Crx) 2.5 Mg Tab Ir PO 2.5 mg Q4H MARCO Administration Oxycodone HCl 5 mg 01/26/25 08:31 01/27/25 11:30 Oxycodone Hcl (*Crx) 5 Mg Tab Ir PO 5 mg Q4H PRN Administration Pain Rated 4-10 Polyethylene Glycol 17 gm 01/27/25 09:00 01/28/25 08:50 Polyethylene Glycol 3350 17 Gm Powd.Pack PO 17 gm QAM MARCO Administration Senna/Docusate Sodium 2 tab 01/27/25 18:21 01/28/25 08:49 Senna/Docusate Sodium Tablet PO 2 tab BID MARCO Administration Valacyclovir HCl 500 mg 01/26/25 09:00 01/28/25 08:49 Valacyclovir Hcl 500 Mg Tablet PO 500 mg DAILY MARCO Administration Radiology Results: ITS Impressions Chest X-Ray 01/25/25 13:21 IMPRESSION: 1. Mild atelectasis at right lung base. Knee X-Ray 01/25/25 13:24 IMPRESSION: 1. Mild left knee osteoarthritis. Hip X-Ray 01/25/25 15:29 IMPRESSION: Degenerative disease without acute fracture or dislocation Hip/Pelvis X-Ray 01/27/25 16:52 IMPRESSION: No acute osseous abnormality. Left hip arthroplasty. Labs Labs: Laboratory Results - last 24 hr 01/28/25 06:37 WBC 8.0 RBC 3.12 L Hgb 10.3 L Hct 30.8 L MCV 98.7 MCH 33.0 MCHC 33.4 RDW 11.9 Plt Count 154 MPV 8.7 Immature Gran % (Auto) 0.5 Neut % (Auto) 82.5 H Lymph % (Auto) 5.6 L [place] % (Auto) 11.3 H Eos % (Auto) 0.0 Baso % (Auto) 0.1 L Lymph # (Auto) 0.45 L [place] # (Auto) 0.9 H Eos # (Auto) 0.0 Baso # (Auto) 0.0 Abs Immat Gran (auto) 0.04 H Absolute Neuts (auto) 6.6 Absolute Nucleated RBC 0.000 Nucleated RBC % 0.0 Sodium 132 L Potassium 4.6 Chloride 96 L Carbon Dioxide 29 Anion Gap 7 BUN 21 H Creatinine 1.00 Estim Creat Clear Calc 62 Estimated GFR > 60 Glucose 117 H Calcium 8.5 Total Bilirubin 0.8 AST 43 ALT 30 Alkaline Phosphatase 72 Total Protein 6.0 L Albumin 3.2 L
[2025-01-28] MEDS: DOXYCYCLINE HYCLATE 100 MG TABLET PO (21:13)
[2025-01-28] MEDS: ATORVASTATIN 40 MG TABLET 80 MG PO (21:14)
[2025-01-29] VITALS (14 sets, daily range): BP systolic 86–144; BP diastolic 48–83; PULSE 57–81; RESP 16–20; TEMP 36.7–37.4; O2SAT 93–98
[2025-01-29] MEDS: oxyCODONE HCL (*CRX) 2.5 MG TAB IR PO ×6 (01:10→20:43)
[2025-01-29] MEDS: ACETAMINOPHEN 325 MG TABLET 650 MG PO ×6 (01:10→20:38)
[2025-01-29 08:10] LABS: Hematocrit 30.8 % (42.0-52.0); Hemoglobin 10.2 g/dL (14.0-18.0); Mean Corpuscular HGB Conc 33.1 g/dl (32-36); Mean Corpuscular Hemoglobin 33.2 pg (26-34); Mean Corpuscular Volume 100.3 fl (80-100); Platelet Count Result 174 k/mm3 (150-375); Red Blood Count 3.07 M/mm3 (4.6-6.20); Red Cell Distribution Width 12.4 % (11.5-14.5); White Blood Count 6.7 K/mm3 (4.5-10.0)
[2025-01-29 08:15] LABS: Alanine Aminotransferase 16 U/L (6-50); Albumin Level 3.4 g/dL (3.5-5.1); Alkaline Phosphatase 80 U/L (38-126); Anion Gap 4 mmol/L (4-12); Aspartate Amino Transferase 61 U/L (17-59); Bilirubin,Total 0.8 mg/dL (0.2-1.3); Blood Urea Nitrogen 22 mg/dL (9-20); Calcium 8.8 mg/dL (8.4-10.2); Carbon Dioxide 31 mmol/L (22-30); Chloride 98 mmol/L (98-107); Estimated CRCL calculation 58 ml/min; Estimated Glomerular Filt Rate > 60; Glucose 96 mg/dL (65-110); Potassium 4.4 mmol/L (3.4-5.0); Sodium 133 mmol/L (137-145)
--- NOTE | 2025-01-29 08:27 | P.PNIM_ITS ---
Progress Note: A&P Assessment and Plan (1) Closed fracture of left hip: Qualifiers: Encounter type: initial encounter Qualified Code(s): S72.002A - Fracture of unspecified part of neck of left femur, initial encounter for closed fracture Code(s): S72.002A - Fracture of unspecified part of neck of left femur, initial encounter for closed fracture Status: Inactive Assessment and Plan: * hip/pelvic XR: 1. Subcapital fracture of left femoral neck. 2. Mild osteoarthritis of the hips. * knee XR (L) and CXR negative for trauma or acute findings * orthopedics consulted, awaiting formal recs * tentative surgery date 01/27, patient on Eliquis (holding, repeat coags tomorrow) * orthopedist consulted Cardiology and Nephrology due to history of AFib and possible recent onset CKD but appears VICTOR HUGO resolved with IV fluids * EKG: SR 1st degree block 68 * NPO for possible surgery 01/27/2025 * analgesics and antiemetics p.r.n. * will need PT/OT postop * Can resume Eliquis post surgery 01/27: * Surgery today scheduled * pain management * PT/OT post op plan for Rehab * bringing patient boot for his foot drop tomorrow prior to PT 01/28: * Post-op day 1 * PT/OT * Resumed Eliquis Ortho would like 2.5 BID while hospitalized in can likely increase to home dose of 5 mg and discharge. 01/29: * No change waiting on approval to acute rehab (2) Atrial fibrillation: Code(s): I48.91 - Unspecified atrial fibrillation Status: Acute Assessment and Plan: * EKG SR 68 with first-degree block * will resume Eliquis post surgery and resume metoprolol * continuous cardiac monitoring * cardiology has been consulted ortho surgical clearance (3) Stage 3a chronic kidney disease: Code(s): N18.31 - Chronic kidney disease, stage 3a Status: Chronic Assessment and Plan: * Cr peaked at 1.51 around baseline * Resolved with IV fluids Cr 1.24 * nephrology consulted by ortho for evaluation pre-surgery cleared per Nephrology * From renal function post surgery Plan Code status: Full code per patient DVT prophylaxis: Eliquis post surgery/SCd's Stress ulcer prophylaxis: NA PT/OT notes: PT/OT post surgery Disposition: patient continues admission to the medical unit for a left hip fracture and will likely be for surgery tomorrow 01/27. Waiting on auth for [facility]. Time Spent With Patient Time with patient: 15 - 25 minutes Subjective Date/time seen: 01/29/25 08:27 Interval history: patient is a 74-year-old male who was admitted for further evaluation of a fracture to the left femoral neck after a fall at home. 01/29/2025: Patient up in chair reports minimal pain and working well with PT who recommend rehab. No other complaints at time of visit and stool noted in colostomy. Hgb stable. Review of Systems Review of Systems: All systems reviewed & are unremarkable except as noted in HPI and below Exam Narrative: * GENERAL: Alert and oriented x 3. No acute distress. * HEENT: Moist mucous membranes. * LUNGS: Clear to auscultation bilaterally. No accessory muscle use. * CARDIOVASCULAR: Regular rate and rhythm. No murmur. No JVD. S1-S2 * ABDOMEN: Soft, non tenderness and non-distended. Colostomy LUQ * EXTREMITIES: Pelvic tenderness. 2+pulses * SKIN: No rashes or lesions. Skin warm, dry. * NEUROLOGIC: No focal neurological deficits. CN II-XII grossly intact * PSYCHIATRIC: Appropriate mood and affect. Objective Data Vital Signs Vital Signs: Vital Signs - 24 hr 01/28/25 08:30 01/28/25 09:16 01/28/25 09:37 Temperature 97.7 F Pulse Rate 59 L Respiratory Rate 18 Blood Pressure 100/61 Pulse Oximetry 99 99 Oxygen Delivery Nasal Cannula Room Air Oxygen Flow Rate 2 01/28/25 10:05 01/28/25 10:14 01/28/25 12:00 Temperature Pulse Rate 65 Respiratory Rate Blood Pressure Pulse Oximetry 90 Oxygen Delivery Room Air Room Air Oxygen Flow Rate 01/28/25 14:00 01/28/25 16:00 01/28/25 16:06 Temperature 97.9 F 98.4 F Pulse Rate 66 64 70 Respiratory Rate 18 18 Blood Pressure 109/55 L 88/52 L Pulse Oximetry 98 93 Oxygen Delivery Oxygen Flow Rate 01/28/25 20:06 01/28/25 20:30 01/29/25 00:00 Temperature 97.6 F Pulse Rate 67 67 58 L Respiratory Rate 16 Blood Pressure 104/55 L Pulse Oximetry 93 Oxygen Delivery Oxygen Flow Rate 01/29/25 00:19 01/29/25 04:00 01/29/25 05:06 Temperature 98.2 F 98.8 F Pulse Rate 60 57 L 57 L Respiratory Rate 16 18 Blood Pressure 102/48 L 115/52 L Pulse Oximetry 94 93 Oxygen Delivery Oxygen Flow Rate Intake/Output Intake/Output: Intake & Output 01/26/25 01/27/25 01/28/25 01/29/25 23:59 23:59 23:59 23:59 Intake Total 1160 2120 1730 450 Output Total 2300 1775 1075 Balance -1140 345 655 450 Meds/Results Medications: Active Medications Generic Name Dose Route Start Last Admin Trade Name Freq PRN Reason Stop Dose Admin Acetaminophen 650 mg 01/26/25 08:35 01/29/25 06:15 Acetaminophen 325 Mg Tablet PO 650 mg Q4H MARCO Administration Albuterol 2 puff 01/25/25 19:10 Albuterol Sulfate (*Sp) Aerosol 1 Puff INHALATION Q4H PRN shortness of breath or wheezing Apixaban 2.5 mg 01/28/25 21:00 01/28/25 21:16 Apixaban 2.5 Mg Tablet PO 2.5 mg Q12HR MARCO Administration Aspirin 81 mg 01/26/25 09:00 01/28/25 08:49 Aspirin 81 Mg Chewable Tablet PO 81 mg DAILY MARCO Administration Atorvastatin Calcium 80 mg 01/25/25 21:00 01/28/25 21:14 Atorvastatin 40 Mg Tablet PO 80 mg HS MARCO Administration Doxycycline Hyclate 100 mg 01/28/25 21:00 01/28/25 21:13 Doxycycline Hyclate 100 Mg Tablet PO 02/07/25 20:59 100 mg Q12HR MARCO Administration Flecainide Acetate 50 mg 01/25/25 21:00 01/28/25 21:15 Flecainide Acetate 50 Mg Tablet PO 50 mg Q12HR MARCO Administration Flecainide Acetate 100 mg 01/25/25 21:00 01/28/25 21:15 Flecainide Acetate 100 Mg Tablet PO 100 mg Q12HR MARCO Administration Fluticasone/Umeclidinium/Vilanterol 1 puff 01/26/25 09:00 01/28/25 09:14 Fluticasone/Umeclidin/Vilanter 200-62.5-25 Mcg Ellipta INHALATION 1 puff Q24H MARCO Administration Hydrochlorothiazide 12.5 mg 01/26/25 09:00 01/28/25 08:49 Hydrochlorothiazide 6.25 Mg Tablet PO 12.5 mg DAILY MARCO Administration Hydromorphone HCl 1 mg 01/27/25 18:21 Hydromorphone Hcl Inj (*Crx) 1 Mg/Ml Syr IV PUSH Q2H PRN Breakthrough Pain Rated 7-10 or NPO Hydromorphone HCl 0.5 mg 01/27/25 18:21 Hydromorphone Hcl Inj (*Crx) 1 Mg/Ml Syr IV PUSH Q2H PRN Breakthrough Pain Rated 4-6 or NPO Metoprolol Succinate 25 mg 01/26/25 09:00 01/28/25 08:49 Metoprolol Succinate Ext Rel 25 Mg Tabcr PO 25 mg DAILY MARCO Administration Naloxone HCl 0.1 mg 01/27/25 18:21 Naloxone Hcl 0.4 Mg/Ml Vial IV PUSH Q2M PRN Opiate Reversal Oxycodone HCl 2.5 mg 01/26/25 08:35 01/29/25 06:15 Oxycodone Hcl (*Crx) 2.5 Mg Tab Ir PO 2.5 mg Q4H MARCO Administration Oxycodone HCl 5 mg 01/26/25 08:31 01/27/25 11:30 Oxycodone Hcl (*Crx) 5 Mg Tab Ir PO 5 mg Q4H PRN Administration Pain Rated 4-10 Polyethylene Glycol 17 gm 01/27/25 09:00 01/28/25 08:50 Polyethylene Glycol 3350 17 Gm Powd.Pack PO 17 gm QAM MARCO Administration Senna/Docusate Sodium 2 tab 01/27/25 18:21 01/28/25 17:40 Senna/Docusate Sodium Tablet PO 2 tab BID MARCO Administration Valacyclovir HCl 500 mg 01/26/25 09:00 01/28/25 08:49 Valacyclovir Hcl 500 Mg Tablet PO 500 mg DAILY MARCO Administration Radiology Results: ITS Impressions Chest X-Ray 01/25/25 13:21 IMPRESSION: 1. Mild atelectasis at right lung base. Knee X-Ray 01/25/25 13:24 IMPRESSION: 1. Mild left knee osteoarthritis. Hip X-Ray 01/25/25 15:29 IMPRESSION: Degenerative disease without acute fracture or dislocation Hip/Pelvis X-Ray 01/27/25 16:52 IMPRESSION: No acute osseous abnormality. Left hip arthroplasty. Labs Labs: Laboratory Results - last 24 hr 01/29/25 07:38 WBC 6.7 RBC 3.07 L Hgb 10.2 L Hct 30.8 L MCV 100.3 H MCH 33.2 MCHC 33.1 RDW 12.4 Plt Count 174 MPV 9.0 Sodium 133 L Potassium 4.4 Chloride 98 Carbon Dioxide 31 H Anion Gap 4 BUN 22 H Creatinine 1.07 Estim Creat Clear Calc 58 Estimated GFR > 60 Glucose 96 Calcium 8.8 Total Bilirubin 0.8 AST 61 H ALT 16 Alkaline Phosphatase 80 Total Protein 6.0 L Albumin 3.4 L Quality VTE Prophylaxis VTE prophylaxis: mechanical ordered and pharmacologic ordered (eliquis post surgery) -Patient's previous records reviewed on admission -ER notes reviewed in detail on admission -discussed all findings and current treatment plan with patient/Family/POA -Consultations reviewed for recommendations -Patient's disposition for safe discharge discussed with assistant case manager Dictation performed by [employer] direct speech recognition software, therefore um nurse variants and typographical errors may occur. Hospitalist [facility] Advance Care Plan I have confirmed that the patient's Advanced Care Plan is present, code status is documented, or surrogate decision maker is listed in patient medical record.: Yes Medication Reconciliation I have utilized all available resources to obtain, update and review the patients current medications (includes all prescriptions, OTC, herbals, cannabis, and nutritional supplements).: Yes The patient is not eligible for med reconciliation; the patient is in a emergent medical situation where delaying treatment would jeopardize the patients health.: No
[2025-01-29] MEDS: FLUTICASONE/UMECLIDIN/VILANTER 200-62.5-25 MCG ELLIPTA 1 PUFF INHALATION (08:31)
[2025-01-29] MEDS: polyethylene glycoL 3350 17 GM POWD.PACK PO (08:45)
[2025-01-29] MEDS: FLECAINIDE ACETATE 50 MG TABLET PO ×2 (08:45→20:39)
[2025-01-29] MEDS: hydroCHLOROthiazide 6.25 MG TABLET 12.5 MG PO (08:45)
[2025-01-29] MEDS: ASPIRIN 81 MG CHEWABLE TABLET PO (08:45)
[2025-01-29] MEDS: SENNA/DOCUSATE SODIUM TABLET 2 TAB PO (08:45)
[2025-01-29] MEDS: valACYclovir HCL 500 MG TABLET PO (08:45)
[2025-01-29] MEDS: DOXYCYCLINE HYCLATE 100 MG TABLET PO ×2 (08:45→20:40)
[2025-01-29] MEDS: FLECAINIDE ACETATE 100 MG TABLET PO ×2 (08:46→20:40)
[2025-01-29] MEDS: APIXABAN 2.5 MG TABLET PO ×2 (08:46→20:41)
[2025-01-29] MEDS: METOPROLOL SUCCINATE EXT REL 25 MG TABCR PO (08:46)
--- NOTE | 2025-01-29 10:29 | PM.PNORT ---
Progress Note: A&P Assessment and Plan (1) Left foot drop: Code(s): M21.372 - Foot drop, left foot Status: Acute Assessment and Plan: On exam today patient has grade 1/5 strength in dorsiflexion of his left ankle. He had rated 0/5 strength in dorsiflexion of the right ankle before surgery. He noticed weakness when he got up the chair yesterday. When I saw him in the morning he demonstrated full active range of motion with respect to dorsiflexion and he does not have that today in the etiology is unclear. He felt that it was weaker yesterday when he was in the chair that it is today as yesterday he felt he had no upward movement of his ankle similar to the right side and now he does have a small amount of upward movement of his toes and ankle actively so he sees a little bit of improvement today. He also feels that the chronic numbness that he has left lower extremity is little bit worse since before his fall. Radiology's in the process of uploading the MRI scan lumbar spine. We are requesting the MRI report. That MRI scan was performed August 03, 2024. With the radiologist's are here tomorrow I am going to ask them to review that with me for their impression. Repeating the MRI scan of the lumbar spine may be a consideration since she has had a change of status with the left side being new. On exam his peroneal nerve was nontender there is no swelling or bruising on the side of his knee or fibular neck area.. It would be extremely unlikely that the cause of his left-sided footdrop is related to sciatic nerve injury in the buttock associated with this hip surgery as we used an anterolateral approach and no retractors are placed posterior to the greater trochanter at any time during the procedure. I am going to ask Small Business Representative to come out tomorrow and fabricate an AFO for his left ankle symptoms the 1 he has on the right as we cannot predict how long his footdrop will persist on the left. (2) Right foot drop: Code(s): M21.371 - Foot drop, right foot Status: Acute Assessment and Plan: MRI lumbar spine images are being imported from study performed on August 04, 2024. The radiologist's interpretation has been requested as has the off served from his orthopedic surgeon and his neurologist Dr. Boggs(sp?) Who are at [facility]. He has been seeing these positions for drop foot on the right for the past year and half and no specific diagnosis for that problem has been achieved other than it being assumed that it is related to his significant peripheral neuropathy. (3) Left displaced femoral neck fracture: Code(s): S72.002A - Fracture of unspecified part of neck of left femur, initial encounter for closed fracture Status: Acute Assessment and Plan: Hemoglobin stable at 10.2. Creatinine stable. He has mild discomfort in the lateral thigh and overall he is comfortable. Subjective Subjective Date/Time Seen: 01/29/25 10:29 Objective Data Vital Signs Vital Signs: Vital Signs - 24 hr 01/28/25 12:00 01/28/25 14:00 01/28/25 16:00 Temperature 36.6 C Pulse Rate 65 66 64 Respiratory Rate 18 Blood Pressure 109/55 L Pulse Oximetry 98 Oxygen Delivery 01/28/25 16:06 01/28/25 20:06 01/28/25 20:30 Temperature 36.9 C 36.4 C Pulse Rate 70 67 67 Respiratory Rate 18 16 Blood Pressure 88/52 L 104/55 L Pulse Oximetry 93 93 Oxygen Delivery 01/29/25 00:00 01/29/25 00:19 01/29/25 04:00 Temperature 36.8 C Pulse Rate 58 L 60 57 L Respiratory Rate 16 Blood Pressure 102/48 L Pulse Oximetry 94 Oxygen Delivery 01/29/25 05:06 01/29/25 08:34 01/29/25 08:34 Temperature 37.1 C Pulse Rate 57 L 81 Respiratory Rate 18 20 Blood Pressure 115/52 L Pulse Oximetry 93 96 Oxygen Delivery Room Air 01/29/25 09:30 Temperature 36.7 C Pulse Rate 74 Respiratory Rate 18 Blood Pressure 105/52 L Pulse Oximetry 97 Oxygen Delivery Intake/Output Intake/Output: Intake & Output 01/26/25 01/27/25 01/28/25 01/29/25 23:59 23:59 23:59 23:59 Intake Total 1160 2120 1730 450 Output Total 2300 1775 1075 300 Balance -1140 345 655 150 Meds/Results Medications: Active Medications Generic Name Dose Route Start Last Admin Trade Name Freq PRN Reason Stop Dose Admin Acetaminophen 650 mg 01/26/25 08:35 01/29/25 08:45 Acetaminophen 325 Mg Tablet PO 650 mg Q4H MARCO Administration Albuterol 2 puff 01/25/25 19:10 Albuterol Sulfate (*Sp) Aerosol 1 Puff INHALATION Q4H PRN shortness of breath or wheezing Apixaban 2.5 mg 01/28/25 21:00 01/29/25 08:46 Apixaban 2.5 Mg Tablet PO 2.5 mg Q12HR MARCO Administration Aspirin 81 mg 01/26/25 09:00 01/29/25 08:45 Aspirin 81 Mg Chewable Tablet PO 81 mg DAILY MARCO Administration Atorvastatin Calcium 80 mg 01/25/25 21:00 01/28/25 21:14 Atorvastatin 40 Mg Tablet PO 80 mg HS MARCO Administration Doxycycline Hyclate 100 mg 01/28/25 21:00 01/29/25 08:45 Doxycycline Hyclate 100 Mg Tablet PO 02/07/25 20:59 100 mg Q12HR MARCO Administration Flecainide Acetate 50 mg 01/25/25 21:00 01/29/25 08:45 Flecainide Acetate 50 Mg Tablet PO 50 mg Q12HR MARCO Administration Flecainide Acetate 100 mg 01/25/25 21:00 01/29/25 08:46 Flecainide Acetate 100 Mg Tablet PO 100 mg Q12HR MARCO Administration Fluticasone/Umeclidinium/Vilanterol 1 puff 01/26/25 09:00 01/29/25 08:31 Fluticasone/Umeclidin/Vilanter 200-62.5-25 Mcg Ellipta INHALATION 1 puff Q24H MARCO Administration Hydrochlorothiazide 12.5 mg 01/26/25 09:00 01/29/25 08:45 Hydrochlorothiazide 6.25 Mg Tablet PO 12.5 mg DAILY MARCO Administration Hydromorphone HCl 1 mg 01/27/25 18:21 Hydromorphone Hcl Inj (*Crx) 1 Mg/Ml Syr IV PUSH Q2H PRN Breakthrough Pain Rated 7-10 or NPO Hydromorphone HCl 0.5 mg 01/27/25 18:21 Hydromorphone Hcl Inj (*Crx) 1 Mg/Ml Syr IV PUSH Q2H PRN Breakthrough Pain Rated 4-6 or NPO Metoprolol Succinate 25 mg 01/26/25 09:00 01/29/25 08:46 Metoprolol Succinate Ext Rel 25 Mg Tabcr PO 25 mg DAILY MARCO Administration Naloxone HCl 0.1 mg 01/27/25 18:21 Naloxone Hcl 0.4 Mg/Ml Vial IV PUSH Q2M PRN Opiate Reversal Oxycodone HCl 2.5 mg 01/26/25 08:35 01/29/25 08:46 Oxycodone Hcl (*Crx) 2.5 Mg Tab Ir PO 2.5 mg Q4H MARCO Administration Oxycodone HCl 5 mg 01/26/25 08:31 01/27/25 11:30 Oxycodone Hcl (*Crx) 5 Mg Tab Ir PO 5 mg Q4H PRN Administration Pain Rated 4-10 Polyethylene Glycol 17 gm 01/27/25 09:00 01/29/25 08:45 Polyethylene Glycol 3350 17 Gm Powd.Pack PO 17 gm QAM MARCO Administration Senna/Docusate Sodium 2 tab 01/27/25 18:21 01/29/25 08:45 Senna/Docusate Sodium Tablet PO 2 tab BID MARCO Administration Valacyclovir HCl 500 mg 01/26/25 09:00 01/29/25 08:45 Valacyclovir Hcl 500 Mg Tablet PO 500 mg DAILY MARCO Administration Radiology Results: ITS Impressions Chest X-Ray 01/25/25 13:21 IMPRESSION: 1. Mild atelectasis at right lung base. Knee X-Ray 01/25/25 13:24 IMPRESSION: 1. Mild left knee osteoarthritis. Hip X-Ray 01/25/25 15:29 IMPRESSION: Degenerative disease without acute fracture or dislocation Hip/Pelvis X-Ray 01/27/25 16:52 IMPRESSION: No acute osseous abnormality. Left hip arthroplasty. Labs Labs: Laboratory Results - last 24 hr 01/29/25 07:38 WBC 6.7 RBC 3.07 L Hgb 10.2 L Hct 30.8 L MCV 100.3 H MCH 33.2 MCHC 33.1 RDW 12.4 Plt Count 174 MPV 9.0 Sodium 133 L Potassium 4.4 Chloride 98 Carbon Dioxide 31 H Anion Gap 4 BUN 22 H Creatinine 1.07 Estim Creat Clear Calc 58 Estimated GFR > 60 Glucose 96 Calcium 8.8 Total Bilirubin 0.8 AST 61 H ALT 16 Alkaline Phosphatase 80 Total Protein 6.0 L Albumin 3.4 L
[2025-01-29] MEDS: ATORVASTATIN 40 MG TABLET 80 MG PO (20:39)
[2025-01-30] VITALS (15 sets, daily range): BP systolic 83–126; BP diastolic 57–69; PULSE 61–80; RESP 16–20; TEMP 36.6–36.9; O2SAT 94–95
[2025-01-30] MEDS: oxyCODONE HCL (*CRX) 2.5 MG TAB IR PO ×6 (00:51→20:53)
[2025-01-30] MEDS: ACETAMINOPHEN 325 MG TABLET 650 MG PO ×6 (00:51→20:53)
[2025-01-30 06:55] LABS: Hematocrit 29.5 % (42.0-52.0); Hemoglobin 9.9 g/dL (14.0-18.0); Mean Corpuscular HGB Conc 33.6 g/dl (32-36); Mean Corpuscular Hemoglobin 32.8 pg (26-34); Mean Corpuscular Volume 97.7 fl (80-100); Mean Platelet Volume 8.3 fl (7.4-10.4); Platelet Count Result 169 k/mm3 (150-375); Red Blood Count 3.02 M/mm3 (4.6-6.20); Red Cell Distribution Width 12.3 % (11.5-14.5)
[2025-01-30 07:25] LABS: Alanine Aminotransferase 19 U/L (6-50); Albumin Level 3.1 g/dL (3.5-5.1); Alkaline Phosphatase 88 U/L (38-126); Anion Gap 6 mmol/L (4-12); Aspartate Amino Transferase 94 U/L (17-59); Bilirubin,Total 0.9 mg/dL (0.2-1.3); Blood Urea Nitrogen 22 mg/dL (9-20); Calcium 8.9 mg/dL (8.4-10.2); Carbon Dioxide 30 mmol/L (22-30); Chloride 98 mmol/L (98-107); Estimated CRCL calculation 59 ml/min; Estimated Glomerular Filt Rate > 60; Glucose 106 mg/dL (65-110); Potassium 4.1 mmol/L (3.4-5.0); Sodium 134 mmol/L (137-145)
[2025-01-30] MEDS: FLUTICASONE/UMECLIDIN/VILANTER 200-62.5-25 MCG ELLIPTA 1 PUFF INHALATION (08:09)
[2025-01-30] MEDS: polyethylene glycoL 3350 17 GM POWD.PACK PO (08:42)
[2025-01-30] MEDS: valACYclovir HCL 500 MG TABLET PO (08:43)
[2025-01-30] MEDS: SENNA/DOCUSATE SODIUM TABLET 2 TAB PO ×2 (08:43→17:43)
[2025-01-30] MEDS: ASPIRIN 81 MG CHEWABLE TABLET PO (08:43)
[2025-01-30] MEDS: FLECAINIDE ACETATE 50 MG TABLET PO ×2 (08:43→20:53)
[2025-01-30] MEDS: DOXYCYCLINE HYCLATE 100 MG TABLET PO ×2 (08:44→20:53)
[2025-01-30] MEDS: FLECAINIDE ACETATE 100 MG TABLET PO ×2 (08:44→20:53)
[2025-01-30] MEDS: hydroCHLOROthiazide 6.25 MG TABLET 12.5 MG PO (08:44)
[2025-01-30] MEDS: APIXABAN 2.5 MG TABLET PO ×2 (08:44→20:53)
[2025-01-30] MEDS: METOPROLOL SUCCINATE EXT REL 25 MG TABCR PO (08:44)
[2025-01-30 09:38] LABS: Magnesium 1.9 mg/dL (1.6-2.3)
[2025-01-30] MEDS: SODIUM CHLORIDE 0.9% IV 500 ML 100 ML IV CONT (10:49)
--- NOTE | 2025-01-30 11:56 | PM.PNORT ---
Progress Note: A&P Assessment and Plan (1) Left displaced femoral neck fracture: Code(s): S72.002A - Fracture of unspecified part of neck of left femur, initial encounter for closed fracture Status: Acute Assessment and Plan: Patient is postop day 3 after bipolar hemiarthroplasty hip. He is comfortable. He could not walk yesterday due to. This is what happened the day before as well. Is dorsiflexion strength of the left ankle were out of 5 today. He can actively dorsiflex it there is clawing of the great toe however which she feels is new. He has clawing of the great toe right foot which has been present for the last year and half. Patient states that he is unable to look up if he is in the standing position but he can look up if he is sitting. If he tries to look up while he is standing he becomes extremely dizzy. Quick movements of his head will also make him dizzy. He has noted that over the past year knee tries to write sometimes the Pen quickly jerks several inches away from where he had been writing. His notes that he can not use a screw or as he becomes so severely Shake he can not control it any has difficulty opening plastic bottle caps now. His neurologist thought the shaking this might be due to his Lyrica and the Lyrica was stopped and this shaking this did. His dizziness when standing is thought to be related to orthostatic hypotension. His legs get very weak and he has to sit down and then after a couple minutes he is able to get up and go again. An MRI scan was performed of his lumbar spine yesterday. I am going to speak to the radiologist to have a formal reading of this. Images are very clear. I have looked I see no high-grade central canal stenosis. He has mild to moderate central canal stenosis at L4-5 in my opinion and there are significant facet changes which can cause some lateral recess stenosis but nothing that would cause, in my experience, waxing and waning footdrop on the left and severe footdrop and eversion weakness on the right which would be both L5 and S1 weakness. Patient does have a known history of peripheral neuropathy of the lower extremities which is thought to be a complication of his chemotherapy from 2016 when he was treated for colon cancer. Assessment and plan 1. Day 3 after bipolar hemiarthroplasty left hip for femoral neck fracture. Hemoglobin is stable at 9.9. Renal function is still intact. 2. Patient has evolving neurologic deficits which is now resulting in footdrop he left ankle. This is a little bit better than yesterday. He has better feeling on the bottom of his foot today when I do the Babinski's test. His great toe IP joint is flexed however now which may be spasticity. He has had that same great toe IP joint flexion problem of his right foot since he developed a severe on the right 1.5 years ago. When taken in consideration with his severe dizziness that occurs when he moves. And his loss of coordination and strength in his hands, and considering the fact that the peripheral neuropathy that resulted from chemotherapy 9 years ago should be static should not be worsening these past 1 and half years, I am concerned that he has another problem causing his current neurologic picture. Cervical myelopathy may be the explanation. I would recommend we obtain cervical spine MRI scan and thoracic spine MRI scan and will do these with and without gadolinium contrast as an intrinsic spinal cord condition could present in this fashion as well. (2) Right foot drop: Code(s): M21.371 - Foot drop, right foot Status: Acute (3) Left foot drop: Code(s): M21.372 - Foot drop, left foot Status: Acute Subjective Subjective Date/Time Seen: 01/30/25 11:56 Objective Data Vital Signs Vital Signs: Vital Signs - 24 hr 01/29/25 12:00 01/29/25 14:21 01/29/25 18:00 Temperature 37.0 C 36.8 C Pulse Rate 80 73 69 Respiratory Rate 18 18 Blood Pressure 86/50 L 94/54 L Pulse Oximetry 95 97 Oxygen Delivery Fraction of Inspired Oxygen 01/29/25 20:00 01/29/25 20:00 01/29/25 20:39 Temperature Pulse Rate 64 64 70 Respiratory Rate 18 Blood Pressure Pulse Oximetry 97 Oxygen Delivery Room Air Fraction of Inspired Oxygen 01/29/25 20:40 01/29/25 20:45 01/30/25 00:00 Temperature 37.4 C Pulse Rate 64 73 63 Respiratory Rate 18 Blood Pressure 144/83 H Pulse Oximetry 98 Oxygen Delivery Fraction of Inspired Oxygen 01/30/25 04:00 01/30/25 05:10 01/30/25 08:09 Temperature 36.6 C Pulse Rate 61 65 Respiratory Rate 20 Blood Pressure 125/57 L Pulse Oximetry 94 95 Oxygen Delivery Room Air Fraction of Inspired Oxygen 21 01/30/25 08:09 01/30/25 08:43 01/30/25 08:44 Temperature Pulse Rate 80 80 80 Respiratory Rate 20 Blood Pressure Pulse Oximetry Oxygen Delivery Fraction of Inspired Oxygen 01/30/25 08:44 Temperature Pulse Rate 80 Respiratory Rate Blood Pressure Pulse Oximetry Oxygen Delivery Fraction of Inspired Oxygen Intake/Output Intake/Output: Intake & Output 01/27/25 01/28/25 01/29/25 01/30/25 23:59 23:59 23:59 23:59 Intake Total 2120 1730 570 400 Output Total 1775 1075 1700 650 Balance [phone] -[id number] -[id number] Meds/Results Medications: Active Medications Generic Name Dose Route Start Last Admin Trade Name Freq PRN Reason Stop Dose Admin Acetaminophen 650 mg 01/26/25 08:35 01/30/25 08:43 Acetaminophen 325 Mg Tablet PO 650 mg Q4H MARCO Administration Albuterol 2 puff 01/25/25 19:10 Albuterol Sulfate (*Sp) Aerosol 1 Puff INHALATION Q4H PRN shortness of breath or wheezing Apixaban 2.5 mg 01/28/25 21:00 01/30/25 08:44 Apixaban 2.5 Mg Tablet PO 2.5 mg Q12HR MARCO Administration Aspirin 81 mg 01/26/25 09:00 01/30/25 08:43 Aspirin 81 Mg Chewable Tablet PO 81 mg DAILY MARCO Administration Atorvastatin Calcium 80 mg 01/25/25 21:00 01/29/25 20:39 Atorvastatin 40 Mg Tablet PO 80 mg HS MARCO Administration Doxycycline Hyclate 100 mg 01/28/25 21:00 01/30/25 08:44 Doxycycline Hyclate 100 Mg Tablet PO 02/07/25 20:59 100 mg Q12HR MARCO Administration Flecainide Acetate 50 mg 01/25/25 21:00 01/30/25 08:43 Flecainide Acetate 50 Mg Tablet PO 50 mg Q12HR MARCO Administration Flecainide Acetate 100 mg 01/25/25 21:00 01/30/25 08:44 Flecainide Acetate 100 Mg Tablet PO 100 mg Q12HR MARCO Administration Fluticasone/Umeclidinium/Vilanterol 1 puff 01/26/25 09:00 01/30/25 08:09 Fluticasone/Umeclidin/Vilanter 200-62.5-25 Mcg Ellipta INHALATION 1 puff Q24H MARCO Administration Hydrochlorothiazide 12.5 mg 01/26/25 09:00 01/30/25 08:44 Hydrochlorothiazide 6.25 Mg Tablet PO 12.5 mg DAILY MARCO Administration Hydromorphone HCl 1 mg 01/27/25 18:21 Hydromorphone Hcl Inj (*Crx) 1 Mg/Ml Syr IV PUSH Q2H PRN Breakthrough Pain Rated 7-10 or NPO Hydromorphone HCl 0.5 mg 01/27/25 18:21 Hydromorphone Hcl Inj (*Crx) 1 Mg/Ml Syr IV PUSH Q2H PRN Breakthrough Pain Rated 4-6 or NPO Sodium Chloride 500 mls @ 100 mls/hr 01/30/25 10:40 01/30/25 10:49 Normal Saline Iv IV CONT 01/30/25 15:39 100 mls/hr .Q5H ONE Administration Metoprolol Succinate 25 mg 01/26/25 09:00 01/30/25 08:44 Metoprolol Succinate Ext Rel 25 Mg Tabcr PO 25 mg DAILY MARCO Administration Naloxone HCl 0.1 mg 01/27/25 18:21 Naloxone Hcl 0.4 Mg/Ml Vial IV PUSH Q2M PRN Opiate Reversal Oxycodone HCl 2.5 mg 01/26/25 08:35 01/30/25 08:44 Oxycodone Hcl (*Crx) 2.5 Mg Tab Ir PO 2.5 mg Q4H MARCO Administration Oxycodone HCl 5 mg 01/26/25 08:31 01/27/25 11:30 Oxycodone Hcl (*Crx) 5 Mg Tab Ir PO 5 mg Q4H PRN Administration Pain Rated 4-10 Polyethylene Glycol 17 gm 01/27/25 09:00 01/30/25 08:42 Polyethylene Glycol 3350 17 Gm Powd.Pack PO 17 gm QAM MARCO Administration Senna/Docusate Sodium 2 tab 01/27/25 18:21 01/30/25 08:43 Senna/Docusate Sodium Tablet PO 2 tab BID MARCO Administration Valacyclovir HCl 500 mg 01/26/25 09:00 01/30/25 08:43 Valacyclovir Hcl 500 Mg Tablet PO 500 mg DAILY MARCO Administration Radiology Results: ITS Impressions Chest X-Ray 01/25/25 13:21 IMPRESSION: 1. Mild atelectasis at right lung base. Knee X-Ray 01/25/25 13:24 IMPRESSION: 1. Mild left knee osteoarthritis. Hip X-Ray 01/25/25 15:29 IMPRESSION: Degenerative disease without acute fracture or dislocation Hip/Pelvis X-Ray 01/27/25 16:52 IMPRESSION: No acute osseous abnormality. Left hip arthroplasty. Labs Labs: Laboratory Results - last 24 hr 01/30/25 06:49 WBC 7.0 RBC 3.02 L Hgb 9.9 L Hct 29.5 L MCV 97.7 MCH 32.8 MCHC 33.6 RDW 12.3 Plt Count 169 MPV 8.3 Sodium 134 L Potassium 4.1 Chloride 98 Carbon Dioxide 30 Anion Gap 6 BUN 22 H Creatinine 1.05 Estim Creat Clear Calc 59 Estimated GFR > 60 Glucose 106 Calcium 8.9 Magnesium 1.9 Total Bilirubin 0.9 AST 94 H ALT 19 Alkaline Phosphatase 88 Total Protein 6.0 L Albumin 3.1 L
--- NOTE | 2025-01-30 12:41 | P.PNIM_ITS ---
Progress Note: A&P Assessment and Plan (1) Closed fracture of left hip: Qualifiers: Encounter type: initial encounter Qualified Code(s): S72.002A - Fracture of unspecified part of neck of left femur, initial encounter for closed fracture Code(s): S72.002A - Fracture of unspecified part of neck of left femur, initial encounter for closed fracture Status: Inactive Assessment and Plan: * hip/pelvic XR: 1. Subcapital fracture of left femoral neck. 2. Mild osteoarthritis of the hips. * knee XR (L) and CXR negative for trauma or acute findings * orthopedics consulted, awaiting formal recs * tentative surgery date 01/27, patient on Eliquis (holding, repeat coags tomorrow) * orthopedist consulted Cardiology and Nephrology due to history of AFib and possible recent onset CKD but appears VICTOR HUGO resolved with IV fluids * EKG: SR 1st degree block 68 * NPO for possible surgery 01/27/2025 * analgesics and antiemetics p.r.n. * will need PT/OT postop * Can resume Eliquis post surgery 01/27: * Surgery today scheduled * pain management * PT/OT post op plan for Rehab * bringing patient boot for his foot drop tomorrow prior to PT 01/28: * Post-op day 1 * PT/OT * Resumed Eliquis Ortho would like 2.5 BID while hospitalized in can likely increase to home dose of 5 mg and discharge. 01/29: * No change waiting on approval to acute rehab 01/30: * PT/OT * Resumed Eliquis Ortho would like 2.5 BID while hospitalized in can likely increase to home dose of 5 mg and discharge. * Dizziness this morning with blood pressure 84/62 standing. Patient given NS @ 100 ml/hr x 500 ml. Blood pressure 125/57. * Add orthostatic vital signs q shift (2) Atrial fibrillation: Code(s): I48.91 - Unspecified atrial fibrillation Status: Acute Assessment and Plan: * EKG SR 69 with first-degree block * will resume Eliquis post surgery and resume metoprolol * continuous cardiac monitoring * cardiology has been consulted ortho surgical clearance (3) Stage 3a chronic kidney disease: Code(s): N18.31 - Chronic kidney disease, stage 3a Status: Chronic Assessment and Plan: * Cr peaked at 1.51 around baseline * Resolved with IV fluids Cr 1.05 today * Nephrology consulted by ortho for evaluation pre-surgery cleared per Nephrology * From renal function post surgery Plan Subjective Date/time seen: 01/30/25 12:41 Interval history: Patient denies chest pain, pain, palpitations, headache, nausea, or vomiting. P athuong reports feeling dizzy earlier and that he has not been drinking much. Review of Systems Review of Systems: All systems reviewed & are unremarkable except as noted in HPI and below Exam Const: General: comfortable and no acute distress Resp: Effort & Inspection: normal respiratory effort Auscultation: clear to auscultation bilaterally Cardio: Rate: regular rate Rhythm: regular rhythm Other: Telemetry-SR 69 GI: GI Palp: Yes Soft to palpation Auscultation: normal bowel sounds Skin: Other: Dressing to left hip with no drainage on dressing. No redness, swelling, or drainage noted. Neuro: Speech: normal speech Extrem: General: no pedal edema Psych: Mental Status: mental status grossly normal Affect: normal affect Objective Data Vital Signs Vital Signs: Vital Signs - 24 hr 01/29/25 14:21 01/29/25 18:00 01/29/25 20:00 Temperature 98.6 F 98.2 F Pulse Rate 73 69 64 Respiratory Rate 18 18 18 Blood Pressure 86/50 L 94/54 L Pulse Oximetry 95 97 97 Oxygen Delivery Room Air Fraction of Inspired Oxygen 01/29/25 20:00 01/29/25 20:39 01/29/25 20:40 Temperature Pulse Rate 64 70 64 Respiratory Rate Blood Pressure Pulse Oximetry Oxygen Delivery Fraction of Inspired Oxygen 01/29/25 20:45 01/30/25 00:00 01/30/25 04:00 Temperature 99.3 F Pulse Rate 73 63 61 Respiratory Rate 18 Blood Pressure 144/83 H Pulse Oximetry 98 Oxygen Delivery Fraction of Inspired Oxygen 01/30/25 05:10 01/30/25 08:00 01/30/25 08:09 Temperature 97.8 F Pulse Rate 65 73 Respiratory Rate 20 Blood Pressure 125/57 L Pulse Oximetry 94 95 Oxygen Delivery Room Air Fraction of Inspired Oxygen 21 01/30/25 08:09 01/30/25 08:43 01/30/25 08:44 Temperature Pulse Rate 80 80 80 Respiratory Rate 20 Blood Pressure Pulse Oximetry Oxygen Delivery Fraction of Inspired Oxygen 01/30/25 08:44 01/30/25 08:45 Temperature Pulse Rate 80 Respiratory Rate Blood Pressure Pulse Oximetry Oxygen Delivery Room Air Fraction of Inspired Oxygen Intake/Output Intake/Output: Intake & Output 01/27/25 01/28/25 01/29/25 01/30/25 23:59 23:59 23:59 23:59 Intake Total 2120 1730 570 400 Output Total 1775 1075 1700 650 Balance 345 808 -[id number] -414 Meds/Results Medications: Active Medications Generic Name Dose Route Start Last Admin Trade Name Freq PRN Reason Stop Dose Admin Acetaminophen 650 mg 01/26/25 08:35 01/30/25 12:20 Acetaminophen 325 Mg Tablet PO 650 mg Q4H MARCO Administration Albuterol 2 puff 01/25/25 19:10 Albuterol Sulfate (*Sp) Aerosol 1 Puff INHALATION Q4H PRN shortness of breath or wheezing Apixaban 2.5 mg 01/28/25 21:00 01/30/25 08:44 Apixaban 2.5 Mg Tablet PO 2.5 mg Q12HR MARCO Administration Aspirin 81 mg 01/26/25 09:00 01/30/25 08:43 Aspirin 81 Mg Chewable Tablet PO 81 mg DAILY MARCO Administration Atorvastatin Calcium 80 mg 01/25/25 21:00 01/29/25 20:39 Atorvastatin 40 Mg Tablet PO 80 mg HS MARCO Administration Doxycycline Hyclate 100 mg 01/28/25 21:00 01/30/25 08:44 Doxycycline Hyclate 100 Mg Tablet PO 02/07/25 20:59 100 mg Q12HR MARCO Administration Flecainide Acetate 50 mg 01/25/25 21:00 01/30/25 08:43 Flecainide Acetate 50 Mg Tablet PO 50 mg Q12HR MARCO Administration Flecainide Acetate 100 mg 01/25/25 21:00 01/30/25 08:44 Flecainide Acetate 100 Mg Tablet PO 100 mg Q12HR MARCO Administration Fluticasone/Umeclidinium/Vilanterol 1 puff 01/26/25 09:00 01/30/25 08:09 Fluticasone/Umeclidin/Vilanter 200-62.5-25 Mcg Ellipta INHALATION 1 puff Q24H MARCO Administration Hydrochlorothiazide 12.5 mg 01/26/25 09:00 01/30/25 08:44 Hydrochlorothiazide 6.25 Mg Tablet PO 12.5 mg DAILY MARCO Administration Hydromorphone HCl 1 mg 01/27/25 18:21 Hydromorphone Hcl Inj (*Crx) 1 Mg/Ml Syr IV PUSH Q2H PRN Breakthrough Pain Rated 7-10 or NPO Hydromorphone HCl 0.5 mg 01/27/25 18:21 Hydromorphone Hcl Inj (*Crx) 1 Mg/Ml Syr IV PUSH Q2H PRN Breakthrough Pain Rated 4-6 or NPO Sodium Chloride 500 mls @ 100 mls/hr 01/30/25 10:40 01/30/25 10:49 Normal Saline Iv IV CONT 01/30/25 15:39 100 mls/hr .Q5H ONE Administration Metoprolol Succinate 25 mg 01/26/25 09:00 01/30/25 08:44 Metoprolol Succinate Ext Rel 25 Mg Tabcr PO 25 mg DAILY MARCO Administration Naloxone HCl 0.1 mg 01/27/25 18:21 Naloxone Hcl 0.4 Mg/Ml Vial IV PUSH Q2M PRN Opiate Reversal Oxycodone HCl 2.5 mg 01/26/25 08:35 01/30/25 12:20 Oxycodone Hcl (*Crx) 2.5 Mg Tab Ir PO 2.5 mg Q4H MARCO Administration Oxycodone HCl 5 mg 01/26/25 08:31 01/27/25 11:30 Oxycodone Hcl (*Crx) 5 Mg Tab Ir PO 5 mg Q4H PRN Administration Pain Rated 4-10 Polyethylene Glycol 17 gm 01/27/25 09:00 01/30/25 08:42 Polyethylene Glycol 3350 17 Gm Powd.Pack PO 17 gm QAM MARCO Administration Senna/Docusate Sodium 2 tab 01/27/25 18:21 01/30/25 08:43 Senna/Docusate Sodium Tablet PO 2 tab BID MARCO Administration Valacyclovir HCl 500 mg 01/26/25 09:00 01/30/25 08:43 Valacyclovir Hcl 500 Mg Tablet PO 500 mg DAILY MARCO Administration Radiology Results: ITS Impressions Chest X-Ray 01/25/25 13:21 IMPRESSION: 1. Mild atelectasis at right lung base. Knee X-Ray 01/25/25 13:24 IMPRESSION: 1. Mild left knee osteoarthritis. Hip X-Ray 01/25/25 15:29 IMPRESSION: Degenerative disease without acute fracture or dislocation Hip/Pelvis X-Ray 01/27/25 16:52 IMPRESSION: No acute osseous abnormality. Left hip arthroplasty. Labs Labs: Laboratory Results - last 24 hr 01/30/25 06:49 WBC 7.0 RBC 3.02 L Hgb 9.9 L Hct 29.5 L MCV 97.7 MCH 32.8 MCHC 33.6 RDW 12.3 Plt Count 169 MPV 8.3 Sodium 134 L Potassium 4.1 Chloride 98 Carbon Dioxide 30 Anion Gap 6 BUN 22 H Creatinine 1.05 Estim Creat Clear Calc 59 Estimated GFR > 60 Glucose 106 Calcium 8.9 Magnesium 1.9 Total Bilirubin 0.9 AST 94 H ALT 19 Alkaline Phosphatase 88 Total Protein 6.0 L Albumin 3.1 L Quality VTE Prophylaxis VTE prophylaxis: mechanical ordered and pharmacologic ordered (eliquis post surgery)
[2025-01-30] MEDS: ATORVASTATIN 40 MG TABLET 80 MG PO (20:53)
[2025-01-31] VITALS (21 sets, daily range): BP systolic 70–168; BP diastolic 53–79; PULSE 61–90; RESP 16; TEMP 36.3–37.1; O2SAT 94–95
[2025-01-31] MEDS: oxyCODONE HCL (*CRX) 2.5 MG TAB IR PO ×5 (05:00→20:20)
[2025-01-31] MEDS: ACETAMINOPHEN 325 MG TABLET 650 MG PO ×5 (05:00→20:20)
[2025-01-31 06:33] LABS: Hematocrit 29.3 % (42.0-52.0); Hemoglobin 9.7 g/dL (14.0-18.0); Mean Corpuscular HGB Conc 33.1 g/dl (32-36); Mean Corpuscular Hemoglobin 32.6 pg (26-34); Mean Corpuscular Volume 98.3 fl (80-100); Mean Platelet Volume 8.5 fl (7.4-10.4); Platelet Count Result 189 k/mm3 (150-375); Red Blood Count 2.98 M/mm3 (4.6-6.20); Red Cell Distribution Width 12.1 % (11.5-14.5); White Blood Count 6.7 K/mm3 (4.5-10.0)
[2025-01-31 06:51] LABS: Alanine Aminotransferase 22 U/L (6-50); Albumin Level 3.2 g/dL (3.5-5.1); Alkaline Phosphatase 92 U/L (38-126); Anion Gap 8 mmol/L (4-12); Aspartate Amino Transferase 85 U/L (17-59); Bilirubin,Total 0.9 mg/dL (0.2-1.3); Blood Urea Nitrogen 22 mg/dL (9-20); Calcium 8.9 mg/dL (8.4-10.2); Carbon Dioxide 30 mmol/L (22-30); Chloride 97 mmol/L (98-107); Estimated CRCL calculation 62 ml/min; Estimated Glomerular Filt Rate > 60; Glucose 109 mg/dL (65-110); Magnesium 1.8 mg/dL (1.6-2.3); Potassium 3.9 mmol/L (3.4-5.0); Sodium 135 mmol/L (137-145)
[2025-01-31] MEDS: FLUTICASONE/UMECLIDIN/VILANTER 200-62.5-25 MCG ELLIPTA 1 PUFF INHALATION (08:33)
[2025-01-31] MEDS: polyethylene glycoL 3350 17 GM POWD.PACK PO (08:51)
[2025-01-31] MEDS: METOPROLOL SUCCINATE EXT REL 25 MG TABCR PO (08:51)
[2025-01-31] MEDS: FLECAINIDE ACETATE 100 MG TABLET PO ×2 (08:52→20:20)
[2025-01-31] MEDS: valACYclovir HCL 500 MG TABLET PO (08:52)
[2025-01-31] MEDS: hydroCHLOROthiazide 6.25 MG TABLET 12.5 MG PO (08:53)
[2025-01-31] MEDS: SENNA/DOCUSATE SODIUM TABLET 2 TAB PO ×2 (08:53→16:11)
[2025-01-31] MEDS: APIXABAN 2.5 MG TABLET PO ×2 (08:54→20:20)
[2025-01-31] MEDS: FLECAINIDE ACETATE 50 MG TABLET PO ×2 (08:54→20:21)
[2025-01-31] MEDS: DOXYCYCLINE HYCLATE 100 MG TABLET PO ×2 (08:54→20:20)
[2025-01-31] MEDS: ASPIRIN 81 MG CHEWABLE TABLET PO (08:54)
--- NOTE | 2025-01-31 11:00 | P.PNIM_ITS ---
Progress Note: A&P Assessment and Plan (1) Closed fracture of left hip: Qualifiers: Encounter type: initial encounter Qualified Code(s): S72.002A - Fracture of unspecified part of neck of left femur, initial encounter for closed fracture Code(s): S72.002A - Fracture of unspecified part of neck of left femur, initial encounter for closed fracture Status: Inactive Assessment and Plan: * hip/pelvic XR: 1. Subcapital fracture of left femoral neck. 2. Mild osteoarthritis of the hips. * knee XR (L) and CXR negative for trauma or acute findings * orthopedics consulted, awaiting formal recs * tentative surgery date 01/27, patient on Eliquis (holding, repeat coags tomorrow) * orthopedist consulted Cardiology and Nephrology due to history of AFib and possible recent onset CKD but appears VICTOR HUGO resolved with IV fluids * EKG: SR 1st degree block 68 * NPO for possible surgery 01/27/2025 * analgesics and antiemetics p.r.n. * will need PT/OT postop * Can resume Eliquis post surgery 01/27: * Surgery today scheduled * pain management * PT/OT post op plan for Rehab * bringing patient boot for his foot drop tomorrow prior to PT 01/28: * Post-op day 1 * PT/OT * Resumed Eliquis Ortho would like 2.5 BID while hospitalized in can likely increase to home dose of 5 mg and discharge. 01/29: * No change waiting on approval to acute rehab 01/30: * PT/OT * Resumed Eliquis Ortho would like 2.5 BID while hospitalized in can likely increase to home dose of 5 mg and discharge. * Dizziness this morning with blood pressure 84/62 standing. Patient given NS @ 100 ml/hr x 500 ml. Blood pressure 125/57. * Add orthostatic vital signs q shift 01/31 * PT/OT * Cleared by Dr. Siu to go to rehab from an orthopedic perspective. * Resumed Eliquis Ortho would like 2.5 BID while hospitalized in can likely increase to home dose of 5 mg and discharge. * Orthostatics: sitting 104/70, standing 87/55, and supine 97/58. NS 500 ml bolus given. Post fluids supine HR 68 & BP 110/60, sitting HR 71 & BP 111/55, and standing HR 73 & BP 70/56. * NS @ 75 ml/hr. * Cardiology consult placed. * Doxycycline 100 mg PO q 12. (2) Atrial fibrillation: Code(s): I48.91 - Unspecified atrial fibrillation Status: Acute Assessment and Plan: * EKG SR 69 with first-degree block * will resume Eliquis post surgery and resume metoprolol * continuous cardiac monitoring * cardiology has been consulted ortho surgical clearance (3) Stage 3a chronic kidney disease: Code(s): N18.31 - Chronic kidney disease, stage 3a Status: Chronic Assessment and Plan: * Cr peaked at 1.51 around baseline * Resolved with IV fluids Cr 1.00 today * Nephrology consulted by ortho for evaluation pre-surgery cleared per Nephrology * From renal function post surgery Plan Subjective Date/time seen: 01/31/25 11:00 Interval history: Patient denies pain, shortness of breath, headache, dizziness, nausea, or vomiting. Cleared by Dr. Siu to go to rehab from an orthopedic perspective. Patient with orthostatic hypotension. Patient was given a 500 ml fluid bolus and remains orthostatic. Patient reports fair appetite. Family at bedside. Review of Systems Review of Systems: All systems reviewed & are unremarkable except as noted in HPI and below Exam Const: General: comfortable and no acute distress Resp: Effort & Inspection: normal respiratory effort Auscultation: clear to auscultation bilaterally Cardio: Rate: regular rate Rhythm: regular rhythm Other: Telemetry- SR 63. GI: GI Palp: Yes Soft to palpation Auscultation: normal bowel sounds Skin: Other: Dressing to left hip with no drainage on dressing. No redness, swelling, or drainage noted. Neuro: Speech: normal speech Extrem: General: no pedal edema Psych: Mental Status: mental status grossly normal Affect: normal affect Objective Data Vital Signs Vital Signs: Vital Signs - 24 hr 01/30/25 12:00 01/30/25 16:00 01/30/25 16:35 Temperature 97.8 F Pulse Rate 74 72 74 Respiratory Rate 17 Blood Pressure 108/64 Pulse Oximetry 95 Oxygen Delivery Fraction of Inspired Oxygen 01/30/25 20:02 01/30/25 20:45 01/30/25 20:50 Temperature 98.5 F 97.8 F Pulse Rate 65 68 74 Respiratory Rate 16 17 Blood Pressure 119/69 108/64 Pulse Oximetry 94 95 Oxygen Delivery Fraction of Inspired Oxygen 01/30/25 20:50 01/30/25 20:53 01/30/25 20:53 Temperature Pulse Rate 74 76 74 Respiratory Rate 17 Blood Pressure Pulse Oximetry 95 Oxygen Delivery Room Air Fraction of Inspired Oxygen 21 01/31/25 00:02 01/31/25 04:02 01/31/25 04:50 Temperature 98.8 F Pulse Rate 61 67 71 Respiratory Rate 16 Blood Pressure 168/79 H Pulse Oximetry 94 Oxygen Delivery Fraction of Inspired Oxygen 01/31/25 08:00 01/31/25 08:00 01/31/25 08:00 Temperature 97.5 F L Pulse Rate 66 73 66 Respiratory Rate 16 Blood Pressure 136/70 Pulse Oximetry 94 94 Oxygen Delivery Room Air Fraction of Inspired Oxygen 01/31/25 08:51 01/31/25 08:52 01/31/25 08:54 Temperature Pulse Rate 64 64 64 Respiratory Rate Blood Pressure Pulse Oximetry Oxygen Delivery Fraction of Inspired Oxygen 01/31/25 09:29 01/31/25 09:29 01/31/25 10:00 Temperature 98.7 F Pulse Rate 68 Respiratory Rate 16 Blood Pressure 104/70 87/55 L 97/58 L Pulse Oximetry 95 Oxygen Delivery Fraction of Inspired Oxygen Intake/Output Intake/Output: Intake & Output 01/28/25 01/29/25 01/30/25 01/31/25 23:59 23:59 23:59 23:59 Intake Total 1730 570 918 740 Output Total 1075 1700 1350 850 Balance 655 -1130 -432 -110 Meds/Results Medications: Active Medications Generic Name Dose Route Start Last Admin Trade Name Freq PRN Reason Stop Dose Admin Acetaminophen 650 mg 01/26/25 08:35 01/31/25 08:54 Acetaminophen 325 Mg Tablet PO 650 mg Q4H MARCO Administration Albuterol 2 puff 01/25/25 19:10 Albuterol Sulfate (*Sp) Aerosol 1 Puff INHALATION Q4H PRN shortness of breath or wheezing Apixaban 2.5 mg 01/28/25 21:00 01/31/25 08:54 Apixaban 2.5 Mg Tablet PO 2.5 mg Q12HR MARCO Administration Aspirin 81 mg 01/26/25 09:00 01/31/25 08:54 Aspirin 81 Mg Chewable Tablet PO 81 mg DAILY MARCO Administration Atorvastatin Calcium 80 mg 01/25/25 21:00 01/30/25 20:53 Atorvastatin 40 Mg Tablet PO 80 mg HS MARCO Administration Doxycycline Hyclate 100 mg 01/28/25 21:00 01/31/25 08:54 Doxycycline Hyclate 100 Mg Tablet PO 02/07/25 20:59 100 mg Q12HR MARCO Administration Flecainide Acetate 50 mg 01/25/25 21:00 01/31/25 08:54 Flecainide Acetate 50 Mg Tablet PO 50 mg Q12HR MARCO Administration Flecainide Acetate 100 mg 01/25/25 21:00 01/31/25 08:52 Flecainide Acetate 100 Mg Tablet PO 100 mg Q12HR MARCO Administration Fluticasone/Umeclidinium/Vilanterol 1 puff 01/26/25 09:00 01/31/25 08:33 Fluticasone/Umeclidin/Vilanter 200-62.5-25 Mcg Ellipta INHALATION 1 puff Q24H MARCO Administration Hydrochlorothiazide 12.5 mg 01/26/25 09:00 01/31/25 08:53 Hydrochlorothiazide 6.25 Mg Tablet PO 12.5 mg DAILY MARCO Administration Hydromorphone HCl 1 mg 01/27/25 18:21 Hydromorphone Hcl Inj (*Crx) 1 Mg/Ml Syr IV PUSH Q2H PRN Breakthrough Pain Rated 7-10 or NPO Hydromorphone HCl 0.5 mg 01/27/25 18:21 Hydromorphone Hcl Inj (*Crx) 1 Mg/Ml Syr IV PUSH Q2H PRN Breakthrough Pain Rated 4-6 or NPO Metoprolol Succinate 25 mg 01/26/25 09:00 01/31/25 08:51 Metoprolol Succinate Ext Rel 25 Mg Tabcr PO 25 mg DAILY MARCO Administration Naloxone HCl 0.1 mg 01/27/25 18:21 Naloxone Hcl 0.4 Mg/Ml Vial IV PUSH Q2M PRN Opiate Reversal Oxycodone HCl 2.5 mg 01/26/25 08:35 01/31/25 08:54 Oxycodone Hcl (*Crx) 2.5 Mg Tab Ir PO 2.5 mg Q4H MARCO Administration Oxycodone HCl 5 mg 01/26/25 08:31 01/27/25 11:30 Oxycodone Hcl (*Crx) 5 Mg Tab Ir PO 5 mg Q4H PRN Administration Pain Rated 4-10 Polyethylene Glycol 17 gm 01/27/25 09:00 01/31/25 08:51 Polyethylene Glycol 3350 17 Gm Powd.Pack PO 17 gm QAM MARCO Administration Senna/Docusate Sodium 2 tab 01/27/25 18:21 01/31/25 08:53 Senna/Docusate Sodium Tablet PO 2 tab BID MARCO Administration Valacyclovir HCl 500 mg 01/26/25 09:00 01/31/25 08:52 Valacyclovir Hcl 500 Mg Tablet PO 500 mg DAILY MARCO Administration Radiology Results: ITS Impressions Chest X-Ray 01/25/25 13:21 IMPRESSION: 1. Mild atelectasis at right lung base. Knee X-Ray 01/25/25 13:24 IMPRESSION: 1. Mild left knee osteoarthritis. Hip X-Ray 01/25/25 15:29 IMPRESSION: Degenerative disease without acute fracture or dislocation Hip/Pelvis X-Ray 01/27/25 16:52 IMPRESSION: No acute osseous abnormality. Left hip arthroplasty. Lumbar Spine MRI 01/30/25 13:28 IMPRESSION: 1. Severe lumbar spondylosis. Cervical Spine MRI 01/30/25 15:52 IMPRESSION: 1. No acute osseous abnormality. 2. Multilevel degenerative disc disease with variable degrees of intervertebral foraminal narrowing and root compression.. 3. No enhancing lesion Thoracic Spine MRI 01/30/25 16:37 IMPRESSION: 1. 10 degrees midthoracic dextroscoliosis with mild thoracic spondylosis. Labs Labs: Laboratory Results - last 24 hr 01/31/25 01/31/25 06:25 06:25 WBC 6.7 RBC 2.98 L Hgb 9.7 L Hct 29.3 L MCV 98.3 MCH 32.6 MCHC 33.1 RDW 12.1 Plt Count 189 MPV 8.5 Sodium 135 L Potassium 3.9 Chloride 97 L Carbon Dioxide 30 Anion Gap 8 BUN 22 H Creatinine 1.00 Estim Creat Clear Calc 62 Estimated GFR > 60 Glucose 109 Calcium 8.9 Magnesium Cancelled 1.8 Total Bilirubin 0.9 AST 85 H ALT 22 Alkaline Phosphatase 92 Total Protein 6.0 L Albumin 3.2 L Quality VTE Prophylaxis VTE prophylaxis: mechanical ordered and pharmacologic ordered (eliquis post surgery)
--- NOTE | 2025-01-31 11:43 | PM.PNORT ---
Progress Note: A&P Assessment and Plan (1) Left displaced femoral neck fracture: Code(s): S72.002A - Fracture of unspecified part of neck of left femur, initial encounter for closed fracture Status: Acute Assessment and Plan: Patient is postop day 4. After bipolar hemiarthroplasty left hip. Hemoglobin is stable at 9.7. His pre-surgical hemoglobin was 11.3 and this is the expected hemoglobin drop with this type of surgery. Since he has no evidence of active bleeding, I think it should be safe to resume his 5 mg twice daily Eliquis which he takes because of history of atrial fibrillation. I believe he is going to be discharged today and we will resume the 5 mg Eliquis at discharge. His wound is fine. 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 His MRI scan of cervical 2nd lumbar spine yesterday was reviewed. He has degenerative changes in her significant and fairly consistent with age spine however there is no high-grade canal compromise or evidence of neural compression that would cause patients presenting complaints of lower extremity weakness and numbness. He I spoke with Dr. Jose and have consulted him and he reviewed the recent MRI scans and felt that there was is no no neurologic compression demonstrated on MRI scan that would explain his numbness and weakness symptoms. He noted the prior EMG nerve conduction velocity testing consistent with right peroneal nerve palsy and has recommended obtaining an UE EMG see testing with Dr. Morejon and Dr. Lance to see if he may have events of left peroneal nerve palsy at the level of the fibular neck which if present may respond to decompression as it is more recent and seems to be somewhat variable as it was worse 2 days ago and was a little bit better yesterday and today Patricio is about a grade 2 of 5 active dorsiflexion. He has no EHL function. I have spoken with Anthony at [facility] and he is going to see the patient at the acute rehab institute and size him for an AFO and that will be per patient basis when available after his discharge from acute rehab institute. Anthony advised me that he believes that the acute rehab institute has trial AFOs on site and ask that they for better stability while he undergoing therapy there. Patient is going to try to get up again with therapy right now. He has been struggling with difficulties with orthostatic hypotension. I have spoken with the therapist to noted that his blood pressure dropped yesterday and that is why they could not get him up. He is sitting at the bedside though and seems to be gradually improving from that standpoint. Patient should be ready to be discharged from my standpoint today. 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: Code(s): G62.0 - Drug-induced polyneuropathy; T45.1X5A - Adverse effect of antineoplastic and immunosuppressive drugs, initial encounter Status: Acute Subjective Subjective Date/Time Seen: 01/31/25 11:43 Objective Data Vital Signs Vital Signs: Vital Signs - 24 hr 01/30/25 12:00 01/30/25 16:00 01/30/25 16:35 Temperature 36.6 C Pulse Rate 74 72 74 Respiratory Rate 17 Blood Pressure 108/64 Pulse Oximetry 95 Oxygen Delivery Fraction of Inspired Oxygen 01/30/25 20:02 01/30/25 20:45 01/30/25 20:50 Temperature 36.9 C 36.6 C Pulse Rate 65 68 74 Respiratory Rate 16 17 Blood Pressure 119/69 108/64 Pulse Oximetry 94 95 Oxygen Delivery Fraction of Inspired Oxygen 01/30/25 20:50 01/30/25 20:53 01/30/25 20:53 Temperature Pulse Rate 74 76 74 Respiratory Rate 17 Blood Pressure Pulse Oximetry 95 Oxygen Delivery Room Air Fraction of Inspired Oxygen 21 01/31/25 00:02 01/31/25 04:02 01/31/25 04:50 Temperature 37.1 C Pulse Rate 61 67 71 Respiratory Rate 16 Blood Pressure 168/79 H Pulse Oximetry 94 Oxygen Delivery Fraction of Inspired Oxygen 01/31/25 08:00 01/31/25 08:00 01/31/25 08:00 Temperature 36.4 C L Pulse Rate 66 73 66 Respiratory Rate 16 Blood Pressure 136/70 Pulse Oximetry 94 94 Oxygen Delivery Room Air Fraction of Inspired Oxygen 01/31/25 08:51 01/31/25 08:52 01/31/25 08:54 Temperature Pulse Rate 64 64 64 Respiratory Rate Blood Pressure Pulse Oximetry Oxygen Delivery Fraction of Inspired Oxygen 01/31/25 09:29 01/31/25 09:29 01/31/25 10:00 Temperature 37.1 C Pulse Rate 68 Respiratory Rate 16 Blood Pressure 104/70 87/55 L 97/58 L Pulse Oximetry 95 Oxygen Delivery Fraction of Inspired Oxygen Intake/Output Intake/Output: Intake & Output 01/28/25 01/29/25 01/30/25 01/31/25 23:59 23:59 23:59 23:59 Intake Total 1730 570 918 740 Output Total 1075 1700 1350 850 Balance 655 -1130 -432 -110 Meds/Results Medications: Active Medications Generic Name Dose Route Start Last Admin Trade Name Freq PRN Reason Stop Dose Admin Acetaminophen 650 mg 01/26/25 08:35 01/31/25 08:54 Acetaminophen 325 Mg Tablet PO 650 mg Q4H MARCO Administration Albuterol 2 puff 01/25/25 19:10 Albuterol Sulfate (*Sp) Aerosol 1 Puff INHALATION Q4H PRN shortness of breath or wheezing Apixaban 2.5 mg 01/28/25 21:00 01/31/25 08:54 Apixaban 2.5 Mg Tablet PO 2.5 mg Q12HR MARCO Administration Aspirin 81 mg 01/26/25 09:00 01/31/25 08:54 Aspirin 81 Mg Chewable Tablet PO 81 mg DAILY MARCO Administration Atorvastatin Calcium 80 mg 01/25/25 21:00 01/30/25 20:53 Atorvastatin 40 Mg Tablet PO 80 mg HS MARCO Administration Doxycycline Hyclate 100 mg 01/28/25 21:00 01/31/25 08:54 Doxycycline Hyclate 100 Mg Tablet PO 02/07/25 20:59 100 mg Q12HR MARCO Administration Flecainide Acetate 50 mg 01/25/25 21:00 01/31/25 08:54 Flecainide Acetate 50 Mg Tablet PO 50 mg Q12HR MARCO Administration Flecainide Acetate 100 mg 01/25/25 21:00 01/31/25 08:52 Flecainide Acetate 100 Mg Tablet PO 100 mg Q12HR MARCO Administration Fluticasone/Umeclidinium/Vilanterol 1 puff 01/26/25 09:00 01/31/25 08:33 Fluticasone/Umeclidin/Vilanter 200-62.5-25 Mcg Ellipta INHALATION 1 puff Q24H MARCO Administration Hydrochlorothiazide 12.5 mg 01/26/25 09:00 01/31/25 08:53 Hydrochlorothiazide 6.25 Mg Tablet PO 12.5 mg DAILY MARCO Administration Hydromorphone HCl 1 mg 01/27/25 18:21 Hydromorphone Hcl Inj (*Crx) 1 Mg/Ml Syr IV PUSH Q2H PRN Breakthrough Pain Rated 7-10 or NPO Hydromorphone HCl 0.5 mg 01/27/25 18:21 Hydromorphone Hcl Inj (*Crx) 1 Mg/Ml Syr IV PUSH Q2H PRN Breakthrough Pain Rated 4-6 or NPO Metoprolol Succinate 25 mg 01/26/25 09:00 01/31/25 08:51 Metoprolol Succinate Ext Rel 25 Mg Tabcr PO 25 mg DAILY MARCO Administration Naloxone HCl 0.1 mg 01/27/25 18:21 Naloxone Hcl 0.4 Mg/Ml Vial IV PUSH Q2M PRN Opiate Reversal Oxycodone HCl 2.5 mg 01/26/25 08:35 01/31/25 08:54 Oxycodone Hcl (*Crx) 2.5 Mg Tab Ir PO 2.5 mg Q4H MARCO Administration Oxycodone HCl 5 mg 01/26/25 08:31 01/27/25 11:30 Oxycodone Hcl (*Crx) 5 Mg Tab Ir PO 5 mg Q4H PRN Administration Pain Rated 4-10 Polyethylene Glycol 17 gm 01/27/25 09:00 01/31/25 08:51 Polyethylene Glycol 3350 17 Gm Powd.Pack PO 17 gm QAM MARCO Administration Senna/Docusate Sodium 2 tab 01/27/25 18:21 01/31/25 08:53 Senna/Docusate Sodium Tablet PO 2 tab BID MARCO Administration Valacyclovir HCl 500 mg 01/26/25 09:00 01/31/25 08:52 Valacyclovir Hcl 500 Mg Tablet PO 500 mg DAILY MARCO Administration Radiology Results: ITS Impressions Chest X-Ray 01/25/25 13:21 IMPRESSION: 1. Mild atelectasis at right lung base. Knee X-Ray 01/25/25 13:24 IMPRESSION: 1. Mild left knee osteoarthritis. Hip X-Ray 01/25/25 15:29 IMPRESSION: Degenerative disease without acute fracture or dislocation Hip/Pelvis X-Ray 01/27/25 16:52 IMPRESSION: No acute osseous abnormality. Left hip arthroplasty. Lumbar Spine MRI 01/30/25 13:28 IMPRESSION: 1. Severe lumbar spondylosis. Cervical Spine MRI 01/30/25 15:52 IMPRESSION: 1. No acute osseous abnormality. 2. Multilevel degenerative disc disease with variable degrees of intervertebral foraminal narrowing and root compression.. 3. No enhancing lesion Thoracic Spine MRI 01/30/25 16:37 IMPRESSION: 1. 10 degrees midthoracic dextroscoliosis with mild thoracic spondylosis. Labs Labs: Laboratory Results - last 24 hr 01/31/25 01/31/25 06:25 06:25 WBC 6.7 RBC 2.98 L Hgb 9.7 L Hct 29.3 L MCV 98.3 MCH 32.6 MCHC 33.1 RDW 12.1 Plt Count 189 MPV 8.5 Sodium 135 L Potassium 3.9 Chloride 97 L Carbon Dioxide 30 Anion Gap 8 BUN 22 H Creatinine 1.00 Estim Creat Clear Calc 62 Estimated GFR > 60 Glucose 109 Calcium 8.9 Magnesium Cancelled 1.8 Total Bilirubin 0.9 AST 85 H ALT 22 Alkaline Phosphatase 92 Total Protein 6.0 L Albumin 3.2 L
[2025-01-31] MEDS: SODIUM CHLORIDE 0.9% IV 500 ML 250 ML IV CONT (12:10)
[2025-01-31] MEDS: SODIUM CHLORIDE 0.9% IV 1,000 ML 75 ML IV CONT (17:18)
[2025-01-31] MEDS: ATORVASTATIN 40 MG TABLET 80 MG PO (20:20)
[2025-02-01] VITALS (19 sets, daily range): BP systolic 68–161; BP diastolic 21–67; PULSE 59–80; RESP 16–18; TEMP 36.6–37.1; O2SAT 93–96
[2025-02-01] MEDS: oxyCODONE HCL (*CRX) 2.5 MG TAB IR PO ×5 (04:39→20:38)
[2025-02-01] MEDS: ACETAMINOPHEN 325 MG TABLET 650 MG PO ×5 (04:39→20:38)
[2025-02-01 06:21] LABS: Alanine Aminotransferase 23 U/L (6-50); Albumin Level 3.1 g/dL (3.5-5.1); Alkaline Phosphatase 93 U/L (38-126); Anion Gap 8 mmol/L (4-12); Aspartate Amino Transferase 69 U/L (17-59); Bilirubin,Total 0.9 mg/dL (0.2-1.3); Blood Urea Nitrogen 20 mg/dL (9-20); Calcium 8.6 mg/dL (8.4-10.2); Carbon Dioxide 29 mmol/L (22-30); Chloride 98 mmol/L (98-107); Estimated CRCL calculation 57 ml/min; Estimated Glomerular Filt Rate > 60; Glucose 104 mg/dL (65-110); Magnesium 1.9 mg/dL (1.6-2.3); Potassium 3.8 mmol/L (3.4-5.0); Sodium 135 mmol/L (137-145)
[2025-02-01 06:26] LABS: Hematocrit 29.4 % (42.0-52.0); Hemoglobin 9.7 g/dL (14.0-18.0); Mean Corpuscular Hemoglobin 32.8 pg (26-34); Mean Corpuscular Volume 99.3 fl (80-100); Mean Platelet Volume 8.8 fl (7.4-10.4); Platelet Count Result 221 k/mm3 (150-375); Red Blood Count 2.96 M/mm3 (4.6-6.20); Red Cell Distribution Width 12.3 % (11.5-14.5)
[2025-02-01] MEDS: SODIUM CHLORIDE 0.9% IV 1,000 ML 75 ML IV CONT ×2 (08:09→21:30)
--- NOTE | 2025-02-01 08:09 | PM.PNORT ---
Progress Note: A&P Assessment and Plan (1) Left displaced femoral neck fracture: Code(s): S72.002A - Fracture of unspecified part of neck of left femur, initial encounter for closed fracture Status: Acute Assessment and Plan: Patient is postop day number 5 after left hip bipolar hemiarthroplasty. Hemoglobin is unchanged at 9.7. Received fluid bolus yesterday. Creatinine and BUN are 1.09 and 20 respectively. He has no swelling around the left hip and there is no blood visible on the Aquacel dressing. Dorsiflexion left ankle today actively is back to /5. Yesterday it was 2/5. Patient has known history of severe peripheral neuropathy thought due to his prior chemotherapy and may have superimposed peroneal neuropathy from compression at the fibular neck on the left side which was demonstrated on the right side by EMG nerve conduction velocity testing from [address] Jose saw the patient yesterday and EMG nerve conduction velocity testing will be scheduled with Dr. Lance and Darleen. The consideration would be whether peroneal nerve decompression may be helpful for this gentleman. Patient was still unable to get up yesterday due to dizziness and was found to have severe orthostatic hypotension and a IV crystalloid bolus was given and this did not change the severe orthostatic hypotension which persisted. A consult to cardiology was requested. (2) Orthostatic hypotension: Code(s): I95.1 - Orthostatic hypotension Status: Acute Subjective Subjective Date/Time Seen: 02/01/25 08:09 Objective Data Vital Signs Vital Signs: Vital Signs - 24 hr 01/31/25 08:51 01/31/25 08:52 01/31/25 08:54 Temperature Pulse Rate 64 64 64 Respiratory Rate Blood Pressure Pulse Oximetry Oxygen Delivery Fraction of Inspired Oxygen 01/31/25 09:29 01/31/25 09:29 01/31/25 10:00 Temperature 37.1 C Pulse Rate 68 Respiratory Rate 16 Blood Pressure 104/70 87/55 L 97/58 L Pulse Oximetry 95 Oxygen Delivery Fraction of Inspired Oxygen 01/31/25 12:00 01/31/25 14:00 01/31/25 15:33 Temperature 36.3 C L Pulse Rate 90 65 68 Respiratory Rate 16 Blood Pressure 131/58 L 110/60 Pulse Oximetry 95 Oxygen Delivery Fraction of Inspired Oxygen 01/31/25 15:35 01/31/25 15:36 01/31/25 15:37 Temperature Pulse Rate 71 73 Respiratory Rate Blood Pressure 111/55 L 70/56 L 150/56 H Pulse Oximetry 95 95 Oxygen Delivery Fraction of Inspired Oxygen 01/31/25 15:37 01/31/25 16:00 01/31/25 20:02 Temperature Pulse Rate 66 68 Respiratory Rate Blood Pressure 136/62 Pulse Oximetry Oxygen Delivery Fraction of Inspired Oxygen 01/31/25 20:20 01/31/25 20:20 01/31/25 20:21 Temperature Pulse Rate 70 64 70 Respiratory Rate 16 Blood Pressure Pulse Oximetry 94 Oxygen Delivery Room Air Fraction of Inspired Oxygen 21 01/31/25 21:00 01/31/25 21:00 01/31/25 21:00 Temperature 37.1 C 37.1 C 37.1 C Pulse Rate 64 67 64 Respiratory Rate 16 16 16 Blood Pressure 134/55 L 129/59 L 105/53 L Pulse Oximetry 94 95 94 Oxygen Delivery Fraction of Inspired Oxygen 01/31/25 21:25 02/01/25 00:02 02/01/25 04:02 Temperature 37.1 C Pulse Rate 64 70 71 Respiratory Rate 16 Blood Pressure 136/62 Pulse Oximetry 94 Oxygen Delivery Fraction of Inspired Oxygen 02/01/25 05:16 Temperature 36.8 C Pulse Rate 66 Respiratory Rate 18 Blood Pressure 161/67 H Pulse Oximetry 93 Oxygen Delivery Fraction of Inspired Oxygen Intake/Output Intake/Output: Intake & Output 01/29/25 01/30/25 01/31/25 02/01/25 23:59 23:59 23:59 23:59 Intake Total 862 958 5544 600 Output Total 1700 1350 1150 1000 Balance -1130 -432 70 -400 Meds/Results Medications: Active Medications Generic Name Dose Route Start Last Admin Trade Name Freq PRN Reason Stop Dose Admin Acetaminophen 650 mg 01/26/25 08:35 02/01/25 04:39 Acetaminophen 325 Mg Tablet PO 650 mg Q4H MARCO Administration Albuterol 2 puff 01/25/25 19:10 Albuterol Sulfate (*Sp) Aerosol 1 Puff INHALATION Q4H PRN shortness of breath or wheezing Apixaban 2.5 mg 01/28/25 21:00 01/31/25 20:20 Apixaban 2.5 Mg Tablet PO 2.5 mg Q12HR MARCO Administration Aspirin 81 mg 02/27/25 09:00 01/31/25 08:54 Aspirin 81 Mg Chewable Tablet PO 81 mg DAILY MARCO Administration Atorvastatin Calcium 80 mg 01/25/25 21:00 01/31/25 20:20 Atorvastatin 40 Mg Tablet PO 80 mg HS MARCO Administration Doxycycline Hyclate 100 mg 01/28/25 21:00 01/31/25 20:20 Doxycycline Hyclate 100 Mg Tablet PO 02/07/25 20:59 100 mg Q12HR MARCO Administration Flecainide Acetate 50 mg 01/25/25 21:00 01/31/25 20:21 Flecainide Acetate 50 Mg Tablet PO 50 mg Q12HR MARCO Administration Flecainide Acetate 100 mg 01/25/25 21:00 01/31/25 20:20 Flecainide Acetate 100 Mg Tablet PO 100 mg Q12HR MARCO Administration Fluticasone/Umeclidinium/Vilanterol 1 puff 01/26/25 09:00 01/31/25 08:33 Fluticasone/Umeclidin/Vilanter 200-62.5-25 Mcg Ellipta INHALATION 1 puff Q24H MARCO Administration Hydrochlorothiazide 12.5 mg 01/26/25 09:00 01/31/25 08:53 Hydrochlorothiazide 6.25 Mg Tablet PO 12.5 mg DAILY MARCO Administration Hydromorphone HCl 1 mg 01/27/25 18:21 Hydromorphone Hcl Inj (*Crx) 1 Mg/Ml Syr IV PUSH Q2H PRN Breakthrough Pain Rated 7-10 or NPO Hydromorphone HCl 0.5 mg 01/27/25 18:21 Hydromorphone Hcl Inj (*Crx) 1 Mg/Ml Syr IV PUSH Q2H PRN Breakthrough Pain Rated 4-6 or NPO Sodium Chloride 1,000 mls @ 75 mls/hr 01/31/25 16:45 01/31/25 17:18 Normal Saline Iv IV CONT 75 mls/hr .[id number] MARCO Administration Metoprolol Succinate 25 mg 01/26/25 09:00 01/31/25 08:51 Metoprolol Succinate Ext Rel 25 Mg Tabcr PO 25 mg DAILY MARCO Administration Naloxone HCl 0.1 mg 01/27/25 18:21 Naloxone Hcl 0.4 Mg/Ml Vial IV PUSH Q2M PRN Opiate Reversal Oxycodone HCl 2.5 mg 01/26/25 08:35 02/01/25 04:39 Oxycodone Hcl (*Crx) 2.5 Mg Tab Ir PO 2.5 mg Q4H MARCO Administration Oxycodone HCl 5 mg 01/26/25 08:31 01/27/25 11:30 Oxycodone Hcl (*Crx) 5 Mg Tab Ir PO 5 mg Q4H PRN Administration Pain Rated 4-10 Polyethylene Glycol 17 gm 01/27/25 09:00 01/31/25 08:51 Polyethylene Glycol 3350 17 Gm Powd.Pack PO 17 gm QAM MARCO Administration Senna/Docusate Sodium 2 tab 01/27/25 18:21 01/31/25 16:11 Senna/Docusate Sodium Tablet PO 2 tab BID MARCO Administration Valacyclovir HCl 500 mg 01/26/25 09:00 01/31/25 08:52 Valacyclovir Hcl 500 Mg Tablet PO 500 mg DAILY MARCO Administration Radiology Results: ITS Impressions Chest X-Ray 01/25/25 13:21 IMPRESSION: 1. Mild atelectasis at right lung base. Knee X-Ray 01/25/25 13:24 IMPRESSION: 1. Mild left knee osteoarthritis. Hip X-Ray 01/25/25 15:29 IMPRESSION: Degenerative disease without acute fracture or dislocation Hip/Pelvis X-Ray 01/27/25 16:52 IMPRESSION: No acute osseous abnormality. Left hip arthroplasty. Lumbar Spine MRI 01/30/25 13:28 IMPRESSION: 1. Severe lumbar spondylosis. Cervical Spine MRI 01/30/25 15:52 IMPRESSION: 1. No acute osseous abnormality. 2. Multilevel degenerative disc disease with variable degrees of intervertebral foraminal narrowing and root compression.. 3. No enhancing lesion Thoracic Spine MRI 01/30/25 16:37 IMPRESSION: 1. 10 degrees midthoracic dextroscoliosis with mild thoracic spondylosis. Labs Labs: Laboratory Results - last 24 hr 02/01/25 05:31 WBC 6.0 RBC 2.96 L Hgb 9.7 L Hct 29.4 L MCV 99.3 MCH 32.8 MCHC 33.0 RDW 12.3 Plt Count 221 MPV 8.8 Sodium 135 L Potassium 3.8 Chloride 98 Carbon Dioxide 29 Anion Gap 8 BUN 20 Creatinine 1.09 Estim Creat Clear Calc 57 Estimated GFR > 60 Glucose 104 Calcium 8.6 Magnesium 1.9 Total Bilirubin 0.9 AST 69 H ALT 23 Alkaline Phosphatase 93 Total Protein 6.0 L Albumin 3.1 L
--- NOTE | 2025-02-01 08:20 | P.PNIM_ITS ---
Progress Note: A&P Assessment and Plan (1) Orthostatic hypotension: Code(s): I95.1 - Orthostatic hypotension Status: Acute Assessment and Plan: Patient has history of orthostatic hypotension. Orthostatics hypotension postoperatively started on 01/30 and did not respond to fluid bolus. Remains on NS 75 ml/hr. Continues his metoprolol 25 mg daily and flecainide 150 mg BID for atrial fibrillation Holding HCTZ Continue qshift orthostatics Orthostatics continue to be significantly positive with systolics dropping into the 80s. He endorses dizziness at that time. Cardiology consulted (2) Closed fracture of left hip: Qualifiers: Encounter type: initial encounter Qualified Code(s): S72.002A - Fracture of unspecified part of neck of left femur, initial encounter for closed fracture Code(s): S72.002A - Fracture of unspecified part of neck of left femur, initial encounter for closed fracture Status: Inactive Assessment and Plan: Patient had a ground level fall after losing his balance resulting in left hip pain. * hip/pelvic XR: 1. Subcapital fracture of left femoral neck. 2. Mild osteoarthritis of the hips. * knee XR (L) and CXR negative for trauma or acute findings * analgesics and antiemetics p.r.n. * anticoagulation per ortho: Resumed Eliquis Ortho would like 2.5 BID while hospitalized in can likely increase to home dose of 5 mg and discharge. * will need PT/OT postop per ortho * orthopedics consulted, awaiting formal recs s/p Bipolar hemiarthroplasty left hip on 01/[address] Siu Cleared by Dr. Siu to go to rehab from an orthopedic perspective. known history of severe peripheral neuropathy thought due to chemo and may have superimposed peroneal neuropathy from compression at the fibular neck on the left side which was demonstrated on the right side by EMG nerve conduction velocity testing from [address] Jose saw the patient yesterday and EMG nerve conduction velocity testing will be scheduled with Dr. Soto. (3) Atrial fibrillation: Code(s): I48.91 - Unspecified atrial fibrillation Status: Acute Assessment and Plan: * EKG SR 69 with first-degree block * will resume Eliquis post surgery and resume metoprolol * continuous cardiac monitoring * cardiology has been consulted ortho surgical clearance Remains in sinus rhythm on flecainide. After orthopedic surgery is complete, resume apixaban when okay with Dr. Siu. (4) Stage 3a chronic kidney disease: Code(s): N18.31 - Chronic kidney disease, stage 3a Status: Chronic Assessment and Plan: * Cr peaked at 1.51 around baseline baseline creatinine appears to run ~ 1.34 - 1.60mg/dl in the last couple of years per nephrology * Resolved with IV fluids Cr 1.00 today * Nephrology consulted by ortho for evaluation pre-surgery cleared per Nephrology (5) Left foot drop: Code(s): M21.372 - Foot drop, left foot Status: Acute Assessment and Plan: Ortho spoke with Anthony at [facility] and he is going to see the patient at the acute rehab institute and size him for an AFO and that will be per patient basis when available after his discharge from acute rehab institute. 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 Patient is pleasant lying comfortably in bed with at bedside. His orthostatic vital signs continued to be significantly positive with systolic blood pressures dropping into the 80s. Notes that when he stands up he gets immediately dizzy and has to sit back down. He has a known history of orthostatic hypotension however he states that this is previously well controlled. He has no other complaints denies chest pain, shortness a breath, palpitations, nausea/vomiting, no abdominal pain. He notes that his lower extremity pain is well controlled on the current regimen and denies any tingling numbness or shooting pain to the lower extremity. Review of Systems Review of Systems: All systems reviewed & are unremarkable except as noted in HPI and below Exam Narrative: AF HR 65 RR 18 Spo2 94 BP 117/51 General: male in no acute respiratory distress who is nontoxic appearing, lying semi recumbent in bed. HEENT: Normocephalic. Atraumatic. Extraocular movement intact. Sclera clear and anicteric. . No facial asymmetry. Chest: Lungs are clear to auscultation bilaterally. No wheezes or crackles. CV: Heart was regular rate and rhythm. S1/S2. No murmurs, gallops, or rubs. Abd: Abdomen was soft. Nontender. Nondistended. Positive bowel sounds. Ext: No clubbing, cyanosis, or edema. 2+ DP pulses bilaterally. Dressing is clean/dry/intact. Neuro: Patient is alert and oriented x4. Speech is clear. Objective Data Vital Signs Vital Signs: Vital Signs - 24 hr 01/31/25 08:51 01/31/25 08:52 01/31/25 08:54 Temperature Pulse Rate 64 64 64 Respiratory Rate Blood Pressure Pulse Oximetry Oxygen Delivery Fraction of Inspired Oxygen 01/31/25 09:29 01/31/25 09:29 01/31/25 10:00 Temperature 98.7 F Pulse Rate 68 Respiratory Rate 16 Blood Pressure 104/70 87/55 L 97/58 L Pulse Oximetry 95 Oxygen Delivery Fraction of Inspired Oxygen 01/31/25 12:00 01/31/25 14:00 01/31/25 15:33 Temperature 97.3 F L Pulse Rate 90 65 68 Respiratory Rate 16 Blood Pressure 131/58 L 110/60 Pulse Oximetry 95 Oxygen Delivery Fraction of Inspired Oxygen 01/31/25 15:35 01/31/25 15:36 01/31/25 15:37 Temperature Pulse Rate 71 73 Respiratory Rate Blood Pressure 111/55 L 70/56 L 150/56 H Pulse Oximetry 95 95 Oxygen Delivery Fraction of Inspired Oxygen 01/31/25 15:37 01/31/25 16:00 01/31/25 20:02 Temperature Pulse Rate 66 68 Respiratory Rate Blood Pressure 136/62 Pulse Oximetry Oxygen Delivery Fraction of Inspired Oxygen 01/31/25 20:20 01/31/25 20:20 01/31/25 20:21 Temperature Pulse Rate 70 64 70 Respiratory Rate 16 Blood Pressure Pulse Oximetry 94 Oxygen Delivery Room Air Fraction of Inspired Oxygen 21 01/31/25 21:00 01/31/25 21:00 01/31/25 21:00 Temperature 98.8 F 98.8 F 98.8 F Pulse Rate 64 67 64 Respiratory Rate 16 16 16 Blood Pressure 134/55 L 129/59 L 105/53 L Pulse Oximetry 94 95 94 Oxygen Delivery Fraction of Inspired Oxygen 01/31/25 21:25 02/01/25 00:02 02/01/25 04:02 Temperature 98.8 F Pulse Rate 64 70 71 Respiratory Rate 16 Blood Pressure 136/62 Pulse Oximetry 94 Oxygen Delivery Fraction of Inspired Oxygen 02/01/25 05:16 Temperature 98.3 F Pulse Rate 66 Respiratory Rate 18 Blood Pressure 161/67 H Pulse Oximetry 93 Oxygen Delivery Fraction of Inspired Oxygen Intake/Output Intake/Output: Intake & Output 01/29/25 01/30/25 01/31/25 02/01/25 23:59 23:59 23:59 23:59 Intake Total 342 334 6796 1600 Output Total 1700 1350 1150 1000 Balance -1130 -432 70 600 Meds/Results Medications: Active Medications Generic Name Dose Route Start Last Admin Trade Name Freq PRN Reason Stop Dose Admin Acetaminophen 650 mg 01/26/25 08:35 02/01/25 04:39 Acetaminophen 325 Mg Tablet PO 650 mg Q4H MARCO Administration Albuterol 2 puff 01/25/25 19:10 Albuterol Sulfate (*Sp) Aerosol 1 Puff INHALATION Q4H PRN shortness of breath or wheezing Apixaban 2.5 mg 01/28/25 21:00 01/31/25 20:20 Apixaban 2.5 Mg Tablet PO 2.5 mg Q12HR MARCO Administration Aspirin 81 mg 01/26/25 09:00 01/31/25 08:54 Aspirin 81 Mg Chewable Tablet PO 81 mg DAILY MARCO Administration Atorvastatin Calcium 80 mg 01/25/25 21:00 01/31/25 20:20 Atorvastatin 40 Mg Tablet PO 80 mg HS MARCO Administration Doxycycline Hyclate 100 mg 01/28/25 21:00 01/31/25 20:20 Doxycycline Hyclate 100 Mg Tablet PO 02/07/25 20:59 100 mg Q12HR MARCO Administration Flecainide Acetate 50 mg 01/25/25 21:00 01/31/25 20:21 Flecainide Acetate 50 Mg Tablet PO 50 mg Q12HR MARCO Administration Flecainide Acetate 100 mg 01/25/25 21:00 01/31/25 20:20 Flecainide Acetate 100 Mg Tablet PO 100 mg Q12HR MARCO Administration Fluticasone/Umeclidinium/Vilanterol 1 puff 01/26/25 09:00 01/31/25 08:33 Fluticasone/Umeclidin/Vilanter 200-62.5-25 Mcg Ellipta INHALATION 1 puff Q24H MARCO Administration Hydrochlorothiazide 12.5 mg 01/26/25 09:00 01/31/25 08:53 Hydrochlorothiazide 6.25 Mg Tablet PO 12.5 mg DAILY MARCO Administration Hydromorphone HCl 1 mg 01/27/25 18:21 Hydromorphone Hcl Inj (*Crx) 1 Mg/Ml Syr IV PUSH Q2H PRN Breakthrough Pain Rated 7-10 or NPO Hydromorphone HCl 0.5 mg 01/27/25 18:21 Hydromorphone Hcl Inj (*Crx) 1 Mg/Ml Syr IV PUSH Q2H PRN Breakthrough Pain Rated 4-6 or NPO Sodium Chloride 1,000 mls @ 75 mls/hr 01/31/25 16:45 02/01/25 08:09 Normal Saline Iv IV CONT 75 mls/hr .[id number] MARCO Administration Metoprolol Succinate 25 mg 01/26/25 09:00 01/31/25 08:51 Metoprolol Succinate Ext Rel 25 Mg Tabcr PO 25 mg DAILY MARCO Administration Naloxone HCl 0.1 mg 01/27/25 18:21 Naloxone Hcl 0.4 Mg/Ml Vial IV PUSH Q2M PRN Opiate Reversal Oxycodone HCl 2.5 mg 01/26/25 08:35 02/01/25 04:39 Oxycodone Hcl (*Crx) 2.5 Mg Tab Ir PO 2.5 mg Q4H MARCO Administration Oxycodone HCl 5 mg 01/26/25 08:31 01/27/25 11:30 Oxycodone Hcl (*Crx) 5 Mg Tab Ir PO 5 mg Q4H PRN Administration Pain Rated 4-10 Polyethylene Glycol 17 gm 01/27/25 09:00 01/31/25 08:51 Polyethylene Glycol 3350 17 Gm Powd.Pack PO 17 gm QAM MARCO Administration Senna/Docusate Sodium 2 tab 01/27/25 18:21 01/31/25 16:11 Senna/Docusate Sodium Tablet PO 2 tab BID MARCO Administration Valacyclovir HCl 500 mg 01/26/25 09:00 01/31/25 08:52 Valacyclovir Hcl 500 Mg Tablet PO 500 mg DAILY MARCO Administration Radiology Results: ITS Impressions Chest X-Ray 01/25/25 13:21 IMPRESSION: 1. Mild atelectasis at right lung base. Knee X-Ray 01/25/25 13:24 IMPRESSION: 1. Mild left knee osteoarthritis. Hip X-Ray 01/25/25 15:29 IMPRESSION: Degenerative disease without acute fracture or dislocation Hip/Pelvis X-Ray 01/27/25 16:52 IMPRESSION: No acute osseous abnormality. Left hip arthroplasty. Lumbar Spine MRI 01/30/25 13:28 IMPRESSION: 1. Severe lumbar spondylosis. Cervical Spine MRI 01/30/25 15:52 IMPRESSION: 1. No acute osseous abnormality. 2. Multilevel degenerative disc disease with variable degrees of intervertebral foraminal narrowing and root compression.. 3. No enhancing lesion Thoracic Spine MRI 01/30/25 16:37 IMPRESSION: 1. 10 degrees midthoracic dextroscoliosis with mild thoracic spondylosis. Labs Labs: Laboratory Results - last 24 hr 02/01/25 05:31 WBC 6.0 RBC 2.96 L Hgb 9.7 L Hct 29.4 L MCV 99.3 MCH 32.8 MCHC 33.0 RDW 12.3 Plt Count 221 MPV 8.8 Sodium 135 L Potassium 3.8 Chloride 98 Carbon Dioxide 29 Anion Gap 8 BUN 20 Creatinine 1.09 Estim Creat Clear Calc 57 Estimated GFR > 60 Glucose 104 Calcium 8.6 Magnesium 1.9 Total Bilirubin 0.9 AST 69 H ALT 23 Alkaline Phosphatase 93 Total Protein 6.0 L Albumin 3.1 L Quality VTE Prophylaxis VTE prophylaxis: mechanical ordered and pharmacologic ordered (eliquis post surgery)
[2025-02-01] MEDS: FLUTICASONE/UMECLIDIN/VILANTER 200-62.5-25 MCG ELLIPTA 1 PUFF INHALATION (08:40)
[2025-02-01] MEDS: METOPROLOL SUCCINATE EXT REL 25 MG TABCR PO (08:50)
[2025-02-01] MEDS: DOXYCYCLINE HYCLATE 100 MG TABLET PO ×2 (08:51→20:39)
[2025-02-01] MEDS: valACYclovir HCL 500 MG TABLET PO (08:51)
[2025-02-01] MEDS: ASPIRIN 81 MG CHEWABLE TABLET PO (08:52)
[2025-02-01] MEDS: FLECAINIDE ACETATE 100 MG TABLET PO ×2 (08:52→20:39)
[2025-02-01] MEDS: FLECAINIDE ACETATE 50 MG TABLET PO ×2 (08:52→20:38)
[2025-02-01] MEDS: APIXABAN 2.5 MG TABLET PO ×2 (08:52→20:39)
[2025-02-01] MEDS: SENNA/DOCUSATE SODIUM TABLET 2 TAB PO (08:53)
[2025-02-01] MEDS: ATORVASTATIN 40 MG TABLET 80 MG PO (20:39)
[2025-02-02] VITALS (18 sets, daily range): BP systolic 92–155; BP diastolic 58–80; PULSE 52–76; RESP 16–20; TEMP 36.5–37; O2SAT 92–96
--- NOTE | 2025-02-02 06:51 | P.PNIM_ITS ---
Progress Note: A&P Assessment and Plan (1) Orthostatic hypotension: Code(s): I95.1 - Orthostatic hypotension Status: Acute Assessment and Plan: Patient has history of orthostatic hypotension. Orthostatics hypotension postoperatively started on 01/30 and did not respond to fluid bolus. Remains on NS 75 ml/hr. Continues his metoprolol 25 mg daily and flecainide 150 mg BID for atrial fibrillation Holding HCTZ Continue qshift orthostatics Orthostatics continue to be significantly positive with systolics dropping into the 80s. He endorses dizziness at that time. Cardiology consulted Discussed patient with cardiology BUSINESS [employer]NAG[employer] INTER[employer] and will trial him on a low dose midodrine to see response with orthostatic blood pressures. Orthostatics remain positive however have improved since holding HCTZ. Able to work with therapy today but continues to endorse dizziness/lightheadedness. Started on midodrine at a low dose given prior hypertension. Unable to discontinue flecainide and metoprolol for patients afib given prior CV. (2) Atrial fibrillation: Code(s): I48.91 - Unspecified atrial fibrillation Status: Acute Assessment and Plan: * EKG SR 69 with first-degree block * will resume Eliquis post surgery and resume metoprolol * continuous cardiac monitoring * cardiology has been consulted ortho surgical clearance Remains in sinus rhythm on flecainide. After orthopedic surgery is complete, resumed apixaban (3) Stage 3a chronic kidney disease: Code(s): N18.31 - Chronic kidney disease, stage 3a Status: Chronic Assessment and Plan: * Cr peaked at 1.51 around baseline baseline creatinine appears to run ~ 1.34 - 1.60mg/dl in the last couple of years per nephrology * Resolved with IV fluids Cr 1.07 today * Nephrology consulted by ortho for evaluation pre-surgery cleared per Nephrology (4) Left foot drop: Code(s): M21.372 - Foot drop, left foot Status: Acute Assessment and Plan: Ortho spoke with Anthony at [facility] and he is going to see the patient at the acute rehab institute and size him for an AFO and that will be per patient basis when available after his discharge from acute rehab institute. 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 Patient is pleasant sitting up in his chart with at bedside. He states that a new blood blister has appeared on his right heel. He is unsure of recent trauma given his neuropathy but notes that he likely has been hitting his heel on the bed and rubs it as he maneuvers himself in bed. Wound care evaluated and foam border dressing ordered to prevent further breakdown. Patient was able to work with therapy today and had a slight improvement to his orthostatic blood pressures, dropping into the 90s systolic. He was able to stand and take a few steps with therapy. He notes slight weakness to the right leg but denies worsening numbness or weakness any where else. Neuro exam is normal. 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 Patient has no other complaints denying chest pain, palpitations, shortness of breath, nasuea/vomiting and abdominal pain. Review of Systems Review of Systems: All systems reviewed & are unremarkable except as noted in HPI and below Exam Narrative: AF HR 69 RR 18 SpO2 95 BP 100/64 General: male in no acute respiratory distress who is nontoxic appearing, lying semi recumbent in bed. HEENT: Normocephalic. Atraumatic. Extraocular movement intact. Sclera clear and anicteric. . No facial asymmetry. Chest: Lungs are clear to auscultation bilaterally. No wheezes or crackles. CV: Heart was regular rate and rhythm. S1/S2. No murmurs, gallops, or rubs. Abd: Abdomen was soft. Nontender. Nondistended. Positive bowel sounds. Ext: No clubbing, cyanosis, or edema. 2+ DP pulses bilaterally. Dressing is clean/dry/intact. Neuro: Patient is alert and oriented x4. Speech is clear. Objective Data Vital Signs Vital Signs: Vital Signs - 24 hr 02/01/25 08:00 02/01/25 08:00 02/01/25 08:00 Temperature 98.2 F Pulse Rate 72 72 72 Respiratory Rate 18 18 Blood Pressure 134/62 Pulse Oximetry 96 94 Oxygen Delivery Room Air Fraction of Inspired Oxygen 21 02/01/25 08:42 02/01/25 08:50 02/01/25 08:52 Temperature Pulse Rate 73 73 Respiratory Rate Blood Pressure Pulse Oximetry 94 Oxygen Delivery Room Air Fraction of Inspired Oxygen 02/01/25 08:52 02/01/25 09:10 02/01/25 09:10 Temperature 98.2 F 98.2 F Pulse Rate 73 80 80 Respiratory Rate 18 18 Blood Pressure 131/67 82/60 L Pulse Oximetry 95 95 Oxygen Delivery Fraction of Inspired Oxygen 02/01/25 10:00 02/01/25 12:00 02/01/25 14:00 Temperature 97.9 F 98.6 F Pulse Rate 72 64 65 Respiratory Rate 18 18 Blood Pressure 68/21 L 117/51 L Pulse Oximetry 94 94 Oxygen Delivery Fraction of Inspired Oxygen 02/01/25 16:00 02/01/25 18:00 02/01/25 20:02 Temperature 98 F Pulse Rate 62 64 63 Respiratory Rate 18 Blood Pressure 113/52 L Pulse Oximetry 94 Oxygen Delivery Fraction of Inspired Oxygen 02/01/25 20:20 02/01/25 20:35 02/01/25 20:35 Temperature 98.0 F 98.0 F Pulse Rate 60 66 66 Respiratory Rate 16 16 16 Blood Pressure 114/59 L 114/59 L Pulse Oximetry 94 94 94 Oxygen Delivery Room Air Fraction of Inspired Oxygen 21 02/01/25 20:38 02/01/25 20:39 02/01/25 22:00 Temperature 98.7 F Pulse Rate 68 66 59 L Respiratory Rate 16 Blood Pressure 132/57 L Pulse Oximetry 94 Oxygen Delivery Fraction of Inspired Oxygen 02/02/25 00:01 02/02/25 04:02 02/02/25 06:00 Temperature 98.3 F Pulse Rate 62 63 67 Respiratory Rate 16 Blood Pressure 149/63 H Pulse Oximetry 96 Oxygen Delivery Fraction of Inspired Oxygen Intake/Output Intake/Output: Intake & Output 01/30/25 01/31/25 02/01/25 02/02/25 23:59 23:59 23:59 23:59 Intake Total 918 1220 4937 Output Total 1350 1150 2325 25 Balance -958 48 5260 -25 Meds/Results Medications: Active Medications Generic Name Dose Route Start Last Admin Trade Name Freq PRN Reason Stop Dose Admin Acetaminophen 650 mg 01/26/25 08:35 02/02/25 05:32 Acetaminophen 325 Mg Tablet PO Not Given Q4H MARCO Albuterol 2 puff 01/25/25 19:10 Albuterol Sulfate (*Sp) Aerosol 1 Puff INHALATION Q4H PRN shortness of breath or wheezing Apixaban 2.5 mg 01/28/25 21:00 02/01/25 20:39 Apixaban 2.5 Mg Tablet PO 2.5 mg Q12HR MARCO Administration Aspirin 81 mg 01/26/25 09:00 02/01/25 08:52 Aspirin 81 Mg Chewable Tablet PO 81 mg DAILY MARCO Administration Atorvastatin Calcium 80 mg 01/25/25 21:00 02/01/25 20:39 Atorvastatin 40 Mg Tablet PO 80 mg HS MARCO Administration Doxycycline Hyclate 100 mg 01/28/25 21:00 02/01/25 20:39 Doxycycline Hyclate 100 Mg Tablet PO 02/07/25 20:59 100 mg Q12HR MARCO Administration Flecainide Acetate 50 mg 01/25/25 21:00 02/01/25 20:38 Flecainide Acetate 50 Mg Tablet PO 50 mg Q12HR MARCO Administration Flecainide Acetate 100 mg 01/25/25 21:00 02/01/25 20:39 Flecainide Acetate 100 Mg Tablet PO 100 mg Q12HR MARCO Administration Fluticasone/Umeclidinium/Vilanterol 1 puff 01/26/25 09:00 02/01/25 08:40 Fluticasone/Umeclidin/Vilanter 200-62.5-25 Mcg Ellipta INHALATION 1 puff Q24H MARCO Administration Hydrochlorothiazide 12.5 mg 01/26/25 09:00 01/31/25 08:53 Hydrochlorothiazide 6.25 Mg Tablet PO 12.5 mg DAILY MARCO Administration Hydromorphone HCl 1 mg 01/27/25 18:21 Hydromorphone Hcl Inj (*Crx) 1 Mg/Ml Syr IV PUSH Q2H PRN Breakthrough Pain Rated 7-10 or NPO Hydromorphone HCl 0.5 mg 01/27/25 18:21 Hydromorphone Hcl Inj (*Crx) 1 Mg/Ml Syr IV PUSH Q2H PRN Breakthrough Pain Rated 4-6 or NPO Sodium Chloride 1,000 mls @ 75 mls/hr 01/31/25 16:45 02/01/25 21:30 Normal Saline Iv IV CONT 75 mls/hr .[id number] MARCO Administration Metoprolol Succinate 25 mg 01/26/25 09:00 02/01/25 08:50 Metoprolol Succinate Ext Rel 25 Mg Tabcr PO 25 mg DAILY MARCO Administration Naloxone HCl 0.1 mg 01/27/25 18:21 Naloxone Hcl 0.4 Mg/Ml Vial IV PUSH Q2M PRN Opiate Reversal Oxycodone HCl 2.5 mg 01/26/25 08:35 02/02/25 05:32 Oxycodone Hcl (*Crx) 2.5 Mg Tab Ir PO Not Given Q4H MARCO Oxycodone HCl 5 mg 01/26/25 08:31 01/27/25 11:30 Oxycodone Hcl (*Crx) 5 Mg Tab Ir PO 5 mg Q4H PRN Administration Pain Rated 4-10 Polyethylene Glycol 17 gm 01/27/25 09:00 02/01/25 08:53 Polyethylene Glycol 3350 17 Gm Powd.Pack PO Not Given QAM MARCO Senna/Docusate Sodium 2 tab 01/27/25 18:21 02/01/25 16:52 Senna/Docusate Sodium Tablet PO Not Given BID MARCO Valacyclovir HCl 500 mg 01/26/25 09:00 02/01/25 08:51 Valacyclovir Hcl 500 Mg Tablet PO 500 mg DAILY MARCO Administration Radiology Results: ITS Impressions Chest X-Ray 01/25/25 13:21 IMPRESSION: 1. Mild atelectasis at right lung base. Knee X-Ray 01/25/25 13:24 IMPRESSION: 1. Mild left knee osteoarthritis. Hip X-Ray 01/25/25 15:29 IMPRESSION: Degenerative disease without acute fracture or dislocation Hip/Pelvis X-Ray 01/27/25 16:52 IMPRESSION: No acute osseous abnormality. Left hip arthroplasty. Lumbar Spine MRI 01/30/25 13:28 IMPRESSION: 1. Severe lumbar spondylosis. Cervical Spine MRI 01/30/25 15:52 IMPRESSION: 1. No acute osseous abnormality. 2. Multilevel degenerative disc disease with variable degrees of intervertebral foraminal narrowing and root compression.. 3. No enhancing lesion Thoracic Spine MRI 01/30/25 16:37 IMPRESSION: 1. 10 degrees midthoracic dextroscoliosis with mild thoracic spondylosis. Quality VTE Prophylaxis VTE prophylaxis: mechanical ordered and pharmacologic ordered (eliquis post surgery)
[2025-02-02] MEDS: FLUTICASONE/UMECLIDIN/VILANTER 200-62.5-25 MCG ELLIPTA 1 PUFF INHALATION (07:52)
[2025-02-02 07:54] LABS: Hematocrit 28.7 % (42.0-52.0); Hemoglobin 9.4 g/dL (14.0-18.0); Mean Corpuscular HGB Conc 32.8 g/dl (32-36); Mean Corpuscular Hemoglobin 32.9 pg (26-34); Mean Corpuscular Volume 100.3 fl (80-100); Mean Platelet Volume 8.4 fl (7.4-10.4); Platelet Count Result 207 k/mm3 (150-375); Red Blood Count 2.86 M/mm3 (4.6-6.20); Red Cell Distribution Width 12.3 % (11.5-14.5); White Blood Count 5.5 K/mm3 (4.5-10.0)
[2025-02-02 08:32] LABS: Alanine Aminotransferase 26 U/L (6-50); Albumin Level 2.9 g/dL (3.5-5.1); Alkaline Phosphatase 88 U/L (38-126); Anion Gap 4 mmol/L (4-12); Aspartate Amino Transferase 59 U/L (17-59); Bilirubin,Total 0.8 mg/dL (0.2-1.3); Blood Urea Nitrogen 21 mg/dL (9-20); Calcium 8.5 mg/dL (8.4-10.2); Carbon Dioxide 31 mmol/L (22-30); Chloride 102 mmol/L (98-107); Estimated CRCL calculation 58 ml/min; Estimated Glomerular Filt Rate > 60; Glucose 100 mg/dL (65-110); Magnesium 1.7 mg/dL (1.6-2.3); Sodium 137 mmol/L (137-145)
[2025-02-02] MEDS: ASPIRIN 81 MG CHEWABLE TABLET PO (09:12)
[2025-02-02] MEDS: valACYclovir HCL 500 MG TABLET PO (09:13)
[2025-02-02] MEDS: SENNA/DOCUSATE SODIUM TABLET 2 TAB PO ×2 (09:13→16:35)
[2025-02-02] MEDS: METOPROLOL SUCCINATE EXT REL 25 MG TABCR PO (09:13)
[2025-02-02] MEDS: ACETAMINOPHEN 325 MG TABLET 650 MG PO ×4 (09:13→20:08)
[2025-02-02] MEDS: FLECAINIDE ACETATE 100 MG TABLET PO ×2 (09:14→20:09)
[2025-02-02] MEDS: DOXYCYCLINE HYCLATE 100 MG TABLET PO ×2 (09:14→20:08)
[2025-02-02] MEDS: APIXABAN 2.5 MG TABLET PO (09:14)
[2025-02-02] MEDS: FLECAINIDE ACETATE 50 MG TABLET PO ×2 (09:14→20:08)
[2025-02-02] MEDS: oxyCODONE HCL (*CRX) 2.5 MG TAB IR PO ×4 (09:14→20:08)
[2025-02-02 09:16] LABS: Iron 48 ug/dL (49-181)
[2025-02-02 09:25] LABS: Percent Iron Saturation 26 % (20-50)
--- NOTE | 2025-02-02 10:06 | PCNWS ---
Weekly nutritional screen. Patient is tolerating current Hert healthy diet with adequate intake, 50-100%. Ensure Enlive BID (350 kcal, 20 g protein). No weight loss reported. No nutritional needs at this time.
[2025-02-02 10:23] LABS: Folic Acid 7.5 ng/mL (2.76->20)
[2025-02-02] MEDS: SODIUM CHLORIDE 0.9% IV 1,000 ML 75 ML IV CONT (11:00)
--- NOTE | 2025-02-02 12:02 | PM.PNORT ---
Progress Note: A&P Assessment and Plan (1) Left displaced femoral neck fracture: Code(s): S72.002A - Fracture of unspecified part of neck of left femur, initial encounter for closed fracture Status: Acute Assessment and Plan: Postop day number 6 after left hip bipolar hemiarthroplasty. Patient was noted to have a pressure sore on the posterolateral aspect of his right heel today. The wound care nurse has seen him and has applied 1 of the foam cushions. Patient moves around the bed quite a bit and I think the pillows periodically get dislodged and because he has no pulses in his feet so he has paired arterial circulation and he has complete numbness in the right foot and ankle because of his neuropathy, he is at extremely high risk for pressure sore problems. I have reminded him that he needs to periodic clear phlegm self up to the head of the bed so his numb right foot is not going to get a pressure sore on the and border of the bed. We will institute 2 pillows under each calf and knee to give a greater degree of elevation. Family reported to me that there was talk of using NATHALIA hose to address his orthostatic hypotension but I believe these would be contraindicated given his peripheral neuropathy and arterial vascular insufficiency his risk of having pressure sores from the toes themselves is too and the pressure sore he has in the posterolateral aspect of the right heel would be a contraindication. Pressure sore is closed. As about a 2 cm purple central area intact overlying epidermis and there is a 3.5 cm area of dark red coloration. The back of his left heel looks fine. His left hip wound looks perfect. He has no bruising or swelling about the hip. Therefore I think it would be safe to resume his home Eliquis at 5 mg q.12 hours and I have started that today. He was able to take a couple of steps today. He still has significant orthostasis and a addition to holding hydrochlorothiazide. He has a history of orthostatic hypotension prior to admission but I think it is likely exacerbated by hemoglobin that is lower than on admission due to the acute blood loss anemia associated with fractured hip and bipolar hemiarthroplasty. His hemoglobin today is 9.4. Platelets [id number]. Subjective Subjective Date/Time Seen: 02/02/25 12:02 Objective Data Vital Signs Vital Signs: Vital Signs - 24 hr 02/01/25 14:00 02/01/25 16:00 02/01/25 18:00 Temperature 37.0 C 36.6 C Pulse Rate 65 62 64 Respiratory Rate 18 18 Blood Pressure 117/51 L 113/52 L Pulse Oximetry 94 94 Oxygen Delivery Fraction of Inspired Oxygen 02/01/25 20:02 02/01/25 20:20 02/01/25 20:35 Temperature 36.7 C 36.7 C Pulse Rate 63 60 66 Respiratory Rate 16 16 Blood Pressure 114/59 L 114/59 L Pulse Oximetry 94 94 Oxygen Delivery Fraction of Inspired Oxygen 02/01/25 20:35 02/01/25 20:38 02/01/25 20:39 Temperature Pulse Rate 66 68 66 Respiratory Rate 16 Blood Pressure Pulse Oximetry 94 Oxygen Delivery Room Air Fraction of Inspired Oxygen 21 02/01/25 22:00 02/02/25 00:01 02/02/25 04:02 Temperature 37.1 C Pulse Rate 59 L 62 63 Respiratory Rate 16 Blood Pressure 132/57 L Pulse Oximetry 94 Oxygen Delivery Fraction of Inspired Oxygen 02/02/25 06:00 02/02/25 07:46 02/02/25 07:52 Temperature 36.8 C 37.0 C Pulse Rate 67 68 Respiratory Rate 16 17 Blood Pressure 149/63 H 138/80 Pulse Oximetry 96 96 95 Oxygen Delivery Room Air Fraction of Inspired Oxygen 02/02/25 07:52 02/02/25 08:00 02/02/25 09:13 Temperature Pulse Rate 68 69 Respiratory Rate 18 Blood Pressure 120/72 Pulse Oximetry Oxygen Delivery Fraction of Inspired Oxygen 02/02/25 09:14 02/02/25 09:14 02/02/25 11:04 Temperature Pulse Rate 69 69 Respiratory Rate Blood Pressure 100/64 Pulse Oximetry Oxygen Delivery Fraction of Inspired Oxygen 02/02/25 11:04 Temperature Pulse Rate Respiratory Rate Blood Pressure 92/60 L Pulse Oximetry Oxygen Delivery Fraction of Inspired Oxygen Intake/Output Intake/Output: Intake & Output 01/30/25 01/31/25 02/01/25 02/02/25 23:59 23:59 23:59 23:59 Intake Total 918 1220 4937 0 Output Total 1350 1150 2325 625 Balance -313 24 0827 -839 Meds/Results Medications: Active Medications Generic Name Dose Route Start Last Admin Trade Name Freq PRN Reason Stop Dose Admin Acetaminophen 650 mg 01/26/25 08:35 02/02/25 09:13 Acetaminophen 325 Mg Tablet PO 650 mg Q4H MARCO Administration Albuterol 2 puff 01/25/25 19:10 Albuterol Sulfate (*Sp) Aerosol 1 Puff INHALATION Q4H PRN shortness of breath or wheezing Apixaban 2.5 mg 01/28/25 21:00 02/02/25 09:14 Apixaban 2.5 Mg Tablet PO 2.5 mg Q12HR MARCO Administration Aspirin 81 mg 01/26/25 09:00 02/02/25 09:12 Aspirin 81 Mg Chewable Tablet PO 81 mg DAILY MARCO Administration Atorvastatin Calcium 80 mg 01/25/25 21:00 02/01/25 20:39 Atorvastatin 40 Mg Tablet PO 80 mg HS MARCO Administration Doxycycline Hyclate 100 mg 01/28/25 21:00 02/02/25 09:14 Doxycycline Hyclate 100 Mg Tablet PO 02/07/25 20:59 100 mg Q12HR MARCO Administration Flecainide Acetate 50 mg 01/25/25 21:00 02/02/25 09:14 Flecainide Acetate 50 Mg Tablet PO 50 mg Q12HR MARCO Administration Flecainide Acetate 100 mg 01/25/25 21:00 02/02/25 09:14 Flecainide Acetate 100 Mg Tablet PO 100 mg Q12HR MARCO Administration Fluticasone/Umeclidinium/Vilanterol 1 puff 01/26/25 09:00 02/02/25 07:52 Fluticasone/Umeclidin/Vilanter 200-62.5-25 Mcg Ellipta INHALATION 1 puff Q24H MARCO Administration Hydrochlorothiazide 12.5 mg 01/26/25 09:00 01/31/25 08:53 Hydrochlorothiazide 6.25 Mg Tablet PO 12.5 mg DAILY MARCO Administration Hydromorphone HCl 1 mg 01/27/25 18:21 Hydromorphone Hcl Inj (*Crx) 1 Mg/Ml Syr IV PUSH Q2H PRN Breakthrough Pain Rated 7-10 or NPO Hydromorphone HCl 0.5 mg 01/27/25 18:21 Hydromorphone Hcl Inj (*Crx) 1 Mg/Ml Syr IV PUSH Q2H PRN Breakthrough Pain Rated 4-6 or NPO Sodium Chloride 1,000 mls @ 75 mls/hr 01/31/25 16:45 02/01/25 21:30 Normal Saline Iv IV CONT 75 mls/hr .[id number] MARCO Administration Metoprolol Succinate 25 mg 01/26/25 09:00 02/02/25 09:13 Metoprolol Succinate Ext Rel 25 Mg Tabcr PO 25 mg DAILY MARCO Administration Midodrine 5 mg 02/02/25 13:00 Midodrine Hcl 2.5 Mg Tablet PO TID MARCO Naloxone HCl 0.1 mg 01/27/25 18:21 Naloxone Hcl 0.4 Mg/Ml Vial IV PUSH Q2M PRN Opiate Reversal Oxycodone HCl 2.5 mg 01/26/25 08:35 02/02/25 09:14 Oxycodone Hcl (*Crx) 2.5 Mg Tab Ir PO 2.5 mg Q4H MARCO Administration Oxycodone HCl 5 mg 01/26/25 08:31 01/27/25 11:30 Oxycodone Hcl (*Crx) 5 Mg Tab Ir PO 5 mg Q4H PRN Administration Pain Rated 4-10 Polyethylene Glycol 17 gm 01/27/25 09:00 02/02/25 09:15 Polyethylene Glycol 3350 17 Gm Powd.Pack PO Not Given QAM MARCO Senna/Docusate Sodium 2 tab 01/27/25 18:21 02/02/25 09:13 Senna/Docusate Sodium Tablet PO 2 tab BID MARCO Administration Valacyclovir HCl 500 mg 01/26/25 09:00 02/02/25 09:13 Valacyclovir Hcl 500 Mg Tablet PO 500 mg DAILY MARCO Administration Radiology Results: ITS Impressions Chest X-Ray 01/25/25 13:21 IMPRESSION: 1. Mild atelectasis at right lung base. Knee X-Ray 01/25/25 13:24 IMPRESSION: 1. Mild left knee osteoarthritis. Hip X-Ray 01/25/25 15:29 IMPRESSION: Degenerative disease without acute fracture or dislocation Hip/Pelvis X-Ray 01/27/25 16:52 IMPRESSION: No acute osseous abnormality. Left hip arthroplasty. Lumbar Spine MRI 01/30/25 13:28 IMPRESSION: 1. Severe lumbar spondylosis. Cervical Spine MRI 01/30/25 15:52 IMPRESSION: 1. No acute osseous abnormality. 2. Multilevel degenerative disc disease with variable degrees of intervertebral foraminal narrowing and root compression.. 3. No enhancing lesion Thoracic Spine MRI 01/30/25 16:37 IMPRESSION: 1. 10 degrees midthoracic dextroscoliosis with mild thoracic spondylosis. Labs Labs: Laboratory Results - last 24 hr 02/02/25 02/02/25 02/02/25 07:45 07:47 07:47 WBC 5.5 RBC 2.86 L Hgb 9.4 L Hct 28.7 L MCV 100.3 H MCH 32.9 MCHC 32.8 RDW 12.3 Plt Count 207 MPV 8.4 Sodium 137 Potassium 4.0 Chloride 102 Carbon Dioxide 31 H Anion Gap 4 BUN 21 H Creatinine 1.07 Estim Creat Clear Calc 58 Estimated GFR > 60 Glucose 100 Calcium 8.5 Magnesium Cancelled 1.7 Iron 48 L TIBC 186 L % Saturation 26 Total Bilirubin 0.8 AST 59 ALT 26 Alkaline Phosphatase 88 Total Protein 6.0 L Albumin 2.9 L Vitamin B12 191.0 L Folate 7.5
[2025-02-02] MEDS: MIDODRINE HCL 2.5 MG TABLET 5 MG PO ×2 (12:23→16:36)
[2025-02-02] MEDS: APIXABAN 5 MG TABLET PO (20:09)
[2025-02-02] MEDS: ATORVASTATIN 40 MG TABLET 80 MG PO (20:09)
[2025-02-03] VITALS (12 sets, daily range): BP systolic 110–162; BP diastolic 64–72; PULSE 57–616; RESP 18–20; TEMP 36.3–36.8; O2SAT 94–96
[2025-02-03] MEDS: SODIUM CHLORIDE 0.9% IV 1,000 ML 75 ML IV CONT (00:30)
[2025-02-03] MEDS: ACETAMINOPHEN 325 MG TABLET 650 MG PO ×3 (05:39→12:22)
[2025-02-03] MEDS: oxyCODONE HCL (*CRX) 2.5 MG TAB IR PO (05:39)
[2025-02-03 06:36] LABS: Hematocrit 28.5 % (42.0-52.0); Hemoglobin 9.2 g/dL (14.0-18.0); Mean Corpuscular HGB Conc 32.3 g/dl (32-36); Mean Corpuscular Hemoglobin 32.4 pg (26-34); Mean Corpuscular Volume 100.4 fl (80-100); Mean Platelet Volume 8.8 fl (7.4-10.4); Platelet Count Result 250 k/mm3 (150-375); Red Blood Count 2.84 M/mm3 (4.6-6.20); Red Cell Distribution Width 12.3 % (11.5-14.5); White Blood Count 6.2 K/mm3 (4.5-10.0)
[2025-02-03 06:48] LABS: Alanine Aminotransferase 26 U/L (6-50); Albumin Level 2.9 g/dL (3.5-5.1); Alkaline Phosphatase 90 U/L (38-126); Anion Gap 5 mmol/L (4-12); Aspartate Amino Transferase 49 U/L (17-59); Bilirubin,Total 0.7 mg/dL (0.2-1.3); Blood Urea Nitrogen 20 mg/dL (9-20); Calcium 8.6 mg/dL (8.4-10.2); Carbon Dioxide 27 mmol/L (22-30); Chloride 103 mmol/L (98-107); Estimated CRCL calculation 61 ml/min; Estimated Glomerular Filt Rate > 60; Glucose 100 mg/dL (65-110); Magnesium 1.7 mg/dL (1.6-2.3); Potassium 4.1 mmol/L (3.4-5.0); Sodium 135 mmol/L (137-145)
[2025-02-03] MEDS: polyethylene glycoL 3350 17 GM POWD.PACK PO (09:22)
[2025-02-03] MEDS: FLECAINIDE ACETATE 50 MG TABLET PO (09:23)
[2025-02-03] MEDS: FLECAINIDE ACETATE 100 MG TABLET PO (09:23)
[2025-02-03] MEDS: DOXYCYCLINE HYCLATE 100 MG TABLET PO (09:23)
[2025-02-03] MEDS: valACYclovir HCL 500 MG TABLET PO (09:23)
[2025-02-03] MEDS: MIDODRINE HCL 2.5 MG TABLET 5 MG PO ×2 (09:24→12:22)
[2025-02-03] MEDS: ASPIRIN 81 MG CHEWABLE TABLET PO (09:24)
[2025-02-03] MEDS: SENNA/DOCUSATE SODIUM TABLET 2 TAB PO (09:24)
[2025-02-03] MEDS: APIXABAN 5 MG TABLET PO (09:24)
[2025-02-03] MEDS: METOPROLOL SUCCINATE EXT REL 25 MG TABCR PO (09:31)
[2025-02-03] MEDS: FLUTICASONE/UMECLIDIN/VILANTER 200-62.5-25 MCG ELLIPTA 1 PUFF INHALATION (09:55)
--- NOTE | 2025-02-03 12:25 | PM.PNORT ---
Progress Note: A&P Assessment and Plan (1) Left displaced femoral neck fracture: Code(s): S72.002A - Fracture of unspecified part of neck of left femur, initial encounter for closed fracture Status: Acute Assessment and Plan: Patient is day 7. After left hip bipolar hemiarthroplasty for displaced femoral neck fracture. He has no significant swelling around the left hip and there is no drainage on the dressing. He is hemoglobin is 9.2. It has slowly drifted down. It was 9.4 yesterday. It should start to increase as result of hematopoiesis. He is being discharged to the acute rehab unit today. We will check a CBC in 5 days to make sure it is started to go up with notification to call MD if less than 9. He did better today with respect to the orthostatic hypotension with the improvement coinciding with Midodrine yesterday started at the recommendation of the second steward yesterday and patient is going to be asked to follow-up with cardiology. I will see him in the office in 3 weeks for x-rays of left hip. Subjective Subjective Date/Time Seen: 02/03/25 12:25 Objective Data Vital Signs Vital Signs: Vital Signs - 24 hr 02/02/25 14:00 02/02/25 18:00 02/02/25 20:00 Temperature 36.7 C 36.5 C Pulse Rate 62 52 L Respiratory Rate 18 20 Blood Pressure 98/58 L 144/69 H 144/69 H Pulse Oximetry 92 94 Oxygen Delivery 02/02/25 20:00 02/02/25 20:08 02/02/25 20:09 Temperature Pulse Rate 58 L 62 62 Respiratory Rate Blood Pressure Pulse Oximetry Oxygen Delivery 02/02/25 21:00 02/02/25 21:00 02/02/25 21:53 Temperature Pulse Rate Respiratory Rate Blood Pressure 137/64 105/62 Pulse Oximetry 96 Oxygen Delivery Room Air 02/02/25 22:00 02/03/25 00:00 02/03/25 04:00 Temperature 36.7 C Pulse Rate 55 L 57 L 58 L Respiratory Rate 20 Blood Pressure 155/65 H Pulse Oximetry 96 Oxygen Delivery 02/03/25 05:58 02/03/25 09:23 02/03/25 09:23 Temperature 36.6 C Pulse Rate 62 62 62 Respiratory Rate 20 Blood Pressure 162/72 H Pulse Oximetry 95 Oxygen Delivery 02/03/25 09:31 02/03/25 09:55 02/03/25 10:00 Temperature 36.3 C L Pulse Rate 62 93 Respiratory Rate 18 Blood Pressure 114/70 Pulse Oximetry 95 96 Oxygen Delivery Room Air Intake/Output Intake/Output: Intake & Output 01/31/25 02/01/25 02/02/25 02/03/25 23:59 23:59 23:59 23:59 Intake Total 1220 4937 2040 1940 Output Total 1150 2325 1175 600 Balance 70 2612 865 1340 Meds/Results Medications: Active Medications Generic Name Dose Route Start Last Admin Trade Name Freq PRN Reason Stop Dose Admin Acetaminophen 650 mg 01/26/25 08:35 02/03/25 12:22 Acetaminophen 325 Mg Tablet PO 650 mg Q4H MARCO Administration Albuterol 2 puff 01/25/25 19:10 Albuterol Sulfate (*Sp) Aerosol 1 Puff INHALATION Q4H PRN shortness of breath or wheezing Apixaban 5 mg 02/02/25 21:00 02/03/25 09:24 Apixaban 5 Mg Tablet PO 5 mg Q12HR MARCO Administration Aspirin 81 mg 01/26/25 09:00 02/03/25 09:24 Aspirin 81 Mg Chewable Tablet PO 81 mg DAILY MARCO Administration Atorvastatin Calcium 80 mg 01/25/25 21:00 02/02/25 20:09 Atorvastatin 40 Mg Tablet PO 80 mg HS MARCO Administration Doxycycline Hyclate 100 mg 01/28/25 21:00 02/03/25 09:23 Doxycycline Hyclate 100 Mg Tablet PO 02/07/25 20:59 100 mg Q12HR MARCO Administration Flecainide Acetate 50 mg 01/25/25 21:00 02/03/25 09:23 Flecainide Acetate 50 Mg Tablet PO 50 mg Q12HR MARCO Administration Flecainide Acetate 100 mg 01/25/25 21:00 02/03/25 09:23 Flecainide Acetate 100 Mg Tablet PO 100 mg Q12HR MARCO Administration Fluticasone/Umeclidinium/Vilanterol 1 puff 01/26/25 09:00 02/03/25 09:55 Fluticasone/Umeclidin/Vilanter 200-62.5-25 Mcg Ellipta INHALATION 1 puff Q24H MARCO Administration Hydrochlorothiazide 12.5 mg 01/26/25 09:00 01/31/25 08:53 Hydrochlorothiazide 6.25 Mg Tablet PO 12.5 mg DAILY MARCO Administration Hydromorphone HCl 1 mg 01/27/25 18:21 Hydromorphone Hcl Inj (*Crx) 1 Mg/Ml Syr IV PUSH Q2H PRN Breakthrough Pain Rated 7-10 or NPO Hydromorphone HCl 0.5 mg 01/27/25 18:21 Hydromorphone Hcl Inj (*Crx) 1 Mg/Ml Syr IV PUSH Q2H PRN Breakthrough Pain Rated 4-6 or NPO Sodium Chloride 1,000 mls @ 75 mls/hr 01/31/25 16:45 02/03/25 00:30 Normal Saline Iv IV CONT 75 mls/hr .[id number] MARCO Administration Metoprolol Succinate 25 mg 01/26/25 09:00 02/03/25 09:31 Metoprolol Succinate Ext Rel 25 Mg Tabcr PO 25 mg DAILY MARCO Administration Midodrine 5 mg 02/02/25 13:00 02/03/25 12:22 Midodrine Hcl 2.5 Mg Tablet PO 5 mg TID MARCO Administration Naloxone HCl 0.1 mg 01/27/25 18:21 Naloxone Hcl 0.4 Mg/Ml Vial IV PUSH Q2M PRN Opiate Reversal Oxycodone HCl 2.5 mg 01/26/25 08:35 02/03/25 12:22 Oxycodone Hcl (*Crx) 2.5 Mg Tab Ir PO Not Given Q4H [facility] Oxycodone HCl 5 mg 01/26/25 08:31 01/27/25 11:30 Oxycodone Hcl (*Crx) 5 Mg Tab Ir PO 5 mg Q4H PRN Administration Pain Rated 4-10 Polyethylene Glycol 17 gm 01/27/25 09:00 02/03/25 09:22 Polyethylene Glycol 3350 17 Gm Powd.Pack PO 17 gm QAM MARCO Administration Senna/Docusate Sodium 2 tab 01/27/25 18:21 02/03/25 09:24 Senna/Docusate Sodium Tablet PO 2 tab BID MARCO Administration Valacyclovir HCl 500 mg 01/26/25 09:00 02/03/25 09:23 Valacyclovir Hcl 500 Mg Tablet PO 500 mg DAILY MARCO Administration Radiology Results: ITS Impressions Chest X-Ray 01/25/25 13:21 IMPRESSION: 1. Mild atelectasis at right lung base. Knee X-Ray 01/25/25 13:24 IMPRESSION: 1. Mild left knee osteoarthritis. Hip X-Ray 01/25/25 15:29 IMPRESSION: Degenerative disease without acute fracture or dislocation Hip/Pelvis X-Ray 01/27/25 16:52 IMPRESSION: No acute osseous abnormality. Left hip arthroplasty. Lumbar Spine MRI 01/30/25 13:28 IMPRESSION: 1. Severe lumbar spondylosis. Cervical Spine MRI 01/30/25 15:52 IMPRESSION: 1. No acute osseous abnormality. 2. Multilevel degenerative disc disease with variable degrees of intervertebral foraminal narrowing and root compression.. 3. No enhancing lesion Thoracic Spine MRI 01/30/25 16:37 IMPRESSION: 1. 10 degrees midthoracic dextroscoliosis with mild thoracic spondylosis. Labs Labs: Laboratory Results - last 24 hr 02/03/25 05:59 WBC 6.2 RBC 2.84 L Hgb 9.2 L Hct 28.5 L MCV 100.4 H MCH 32.4 MCHC 32.3 RDW 12.3 Plt Count 250 MPV 8.8 Sodium 135 L Potassium 4.1 Chloride 103 Carbon Dioxide 27 Anion Gap 5 BUN 20 Creatinine 1.01 Estim Creat Clear Calc 61 Estimated GFR > 60 Glucose 100 Calcium 8.6 Magnesium 1.7 Total Bilirubin 0.7 AST 49 ALT 26 Alkaline Phosphatase 90 Total Protein 6.0 L Albumin 2.9 L
--- NOTE | 2025-02-03 12:50 | P.DS_ITS ---
DS: Admitting Diagnosis Discharge Date 02/03/2025 Admitting Diagnosis Left displaced femoral neck fracture Orthostatic hypertension AFib Stage III CKD Left footdrop DS: Discharge Diagnosis Discharge Diagnosis (1) Orthostatic hypotension: Code(s): I95.1 - Orthostatic hypotension Status: Acute (2) Atrial fibrillation: Code(s): I48.91 - Unspecified atrial fibrillation Status: Acute (3) Stage 3a chronic kidney disease: Code(s): N18.31 - Chronic kidney disease, stage 3a Status: Chronic (4) Left foot drop: Code(s): M21.372 - Foot drop, left foot Status: Acute (5) Left displaced femoral neck fracture: Code(s): S72.002A - Fracture of unspecified part of neck of left femur, initial encounter for closed fracture Status: Acute DS: Summary Hospital Course Reason for hospitalization: Left displaced femoral neck fracture Orthostatic hypertension AFib Stage III CKD Left footdrop Hospital Course: 74 y/o M presents here with left hip pain with PMH of 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 Hip/pelvis XR showed Subcapital fracture of left femoral neck and mild osteoarthritis of the hips. Knee XR showed mild osteoarthritis. Ortho consulted and patient underwent a Bipolar hemiarthroplasty left hip on 01/[address] Siu. 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 He has new onset of significant his dorsiflexion left ankle per ortho. [employer] is going to get him an AFO for his left ankle similar to on the right. During admission patient underwent MRI to further evaluate. C spine MRI showed No acute osseous abnormality or enhancing lesions. Patient does have multilevel degenerative disc disease with variable degrees of intervertebral foraminal narrowing and root compression. Thoracic MRI showed 10 degrees midthoracic dextroscoliosis with mild thoracic spondylosis. Lumbar MRI showed severe spondylosis. Dr Jose, neurosurgery, plans to refer the patient to Dr. Morejon in [place] for EMG nerve conduction velocity testing of the lower extremities to determine whether there is a significant component of peroneal nerve compression at the fibular neck on the left side to justify peroneal nerve decompression. Patient is to follow up with Dr. Siu as scheduled. Patient had mild anemia at discharge. He is to obtain a CBC in 5 days to reassess. If Hgb is < 9 the house doctor is to be informed. During patients admission he developed symptomatic orthostatic hypotension. His HCTZ was discontinued and he was started on fluids. He continued to have symptomatic orthostatic hypotension. Discussed patient with cardiology [employer] and he was started on low dose midodrine. He remained on his metoprolol and flecainide given afib with prior CV. Prior to patients discharge obtained manual orthostatic blood pressures which were negative. During that time he remained asymptomatic. Discussed patient with Dr. Siu who notes that patient is ready for discharge from an orthopedics stand point as well. At time of discharge patient had no complaints denying chest pain, shortness breast, palpitations, nausea/vomiting, abdominal pain, and dizziness/lightheadedness. Patient discharged to [facility] in a stable condition. He is to follow-up with primary care provider in 1 week and Ortho as scheduled. 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 They stated understanding at that time. Status at Discharge Functional status at discharge: uses cane/walker Time Spent with Patient Time attestation: Total time spent providing and/or coordinating discharge services: Time spent: Greater than 30 minutes Exam Narrative: AF HR 61 RR 16 sPo2 94 bp 116/72 General: male in no acute respiratory distress who is nontoxic appearing, sitting up in bed HEENT: Normocephalic. Atraumatic. Extraocular movement intact. Sclera clear and anicteric. . No facial asymmetry. Chest: Lungs are clear to auscultation bilaterally. No wheezes or crackles. CV: Heart was regular rate and rhythm. S1/S2. No murmurs, gallops, or rubs. Abd: Abdomen was soft. Nontender. Nondistended. Positive bowel sounds. Ext: No clubbing, cyanosis, or edema. Dressing is clean/dry/intact. Neuro: Patient is alert and oriented x4. Speech is clear. DS: Data Data Completed and Pending Completed studies during hospitalization: Thoracic spine MRI C-spine MRI Lumbar spine MRI Hip/pelvis x-ray Intraoperative x-ray Hip x-ray Knee x-ray Hip/pelvis x-ray Chest x-ray Pending studies at discharge: Pending at discharge 01/27/25 14:39 Surgical [PTH] Routine Labs on day of discharge: Labs from last 24 hours 02/03/25 05:59 WBC 6.2 RBC 2.84 L Hgb 9.2 L Hct 28.5 L MCV 100.4 H MCH 32.4 MCHC 32.3 RDW 12.3 Plt Count 250 MPV 8.8 Sodium 135 L Potassium 4.1 Chloride 103 Carbon Dioxide 27 Anion Gap 5 BUN 20 Creatinine 1.01 Estim Creat Clear Calc 61 Estimated GFR > 60 Glucose 100 Calcium 8.6 Magnesium 1.7 Total Bilirubin 0.7 AST 49 ALT 26 Alkaline Phosphatase 90 Total Protein 6.0 L Albumin 2.9 L Discharge Plan Discharge Attending physician on discharge: Naseem Robledo Consulting providers: Cindy Solano; Eliot Siu; Kodi Gonzalez; Beatris Mata; Yoni Jose; Pan Jimenez Discharging Clinician: Maya Ovalle Anticipated Discharge Date/Time: 02/03/25 12:36 Patient Disposition: [facility] Activity: as tolerated and other - see discharge instructions Diet: as tolerated and heart healthy Discharge Instructions: Discharge instructions per orthopedics: Patient must use the walker 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 Patient may be weight-bearing as tolerated on Left leg. No abduction strengthening exercises for the 1st 6 weeks. Patient will need to use walker full-time for ever. Patient was using a walker before his hip fracture due to severe peripheral neuropathy of the lower extremities, weakness, and dizziness caused by orthostatic hypotension. Whenever the patient is in bed supine, he must have 2 pillows under each knee and calf placed lengthwise, to keep pressure off of his heels. He is at high risk for pressure sores because of his lower extremity sensory neuropathy. Additionally, keep this special pink pressure sore pad on posterior aspects of both heels. He now has a pressure sore under the posterolateral aspect of the right heel which needs to be reviewed daily. The redding will be keeping both heels off the bed at all times. 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 Do not wear the AFOs while in bed. He has new onset of significant his dorsiflexion left ankle. [employer] is going to come out and measure him for an AFO for his left ankle similar to on the right. After discharge he will go to [facility] and obtain AFO for his left ankle. Please coordinate this with [employer] In the meantime, please use 1 of your trial AFOs for his left ankle foot drop while ambulating Dr Jose, neurosurgery, plans to refer the patient to Dr. Morejon in [place] for EMG nerve conduction velocity testing of the lower extremities do determine whether there is a significant component of peroneal nerve compression at the fibular neck on the left side to justify peroneal nerve decompression. When that appointment is made, please communicate to their office that he is on Eliquis as it may need to be stopped for 48 hours be un dergo EMG nerve conduction velocity testing. Please remove the Aquacel dressing on ThursdayFebruary 10 and leave off and leave wound open to air. Discontinue doxycycline on February 07. Anthony from [facility] is ordering a pair of [place] vascular boots for this gentleman and there being shipped from the factory and may be available to apply on Thursday. Please call Anthony on Thursday to let him know the patient's room number. Office number is [phone]. Anthony's cell phone is [phone]. The vascular bruits should be worn whenever the patient is in bed Do not use Choco hose or compressive stockings because of his peripheral vascular disease. CBC in 5 days and call house doctor if hemoglobin less than 9. Follow-up with Dr. Siu in office in 3 weeks Discharge instructions: Patient has a history of orthostatic hypotension however during admission became symptomatic Started on midodrine 5 mg three times a day Discontinued hydrochlorothiazide Continue metoprolol and flecainide for patients atrial fibrillation Monitor blood pressures Take caution while standing, rising, or moving Change positions slowly taking a break between each position change If you standing feel dizzy sit back down and take a break Return to the emergency department if he developed sudden shortness of breath, chest pain, nausea, vomiting, upset stomach or intractable diarrhea Return to the emergency department if you develop fever greater than 101.5 Follow-up with the primary care physician within 1-2 weeks Thank you for [facility] for your healthcare needs Patient Instructions: Midodrine (By mouth), Apixaban (By mouth), Hypotension (DC) Patient Language: Sami Follow-up/Referrals: Shubham,Billy Vaughan MD [Primary Care Provider] - 1 Week Eliot Siu MD [Physician] - Keep Reg. Scheduled Appt. Discharge Medications: New polyethylene glycol 3350 [Miralax] 17 gram Powder In Packet 17 g PO QAM Qty: 30 0RF sennosides-docusate sodium [Senokot-S] 8.6-50 mg Tablet 2 tab-cap PO BID Qty: 120 0RF oxycodone 5 mg Tablet 5 mg PO Q4H PRN (Reason: Pain Rated 4-10) Qty: 40 0RF Rx Instructions: Patient may take 1/2 of a 5 mg tablet or 1 5 mg tablet every 4 hours as needed doxycycline hyclate 100 mg Tablet 100 mg PO Q12HR Qty: 8 0RF acetaminophen 325 mg tablet 650 mg PO Q6H Qty: 120 0RF midodrine 2.5 mg Tablet 5 mg PO TID Qty: 90 0RF Continued flecainide 150 mg tablet 150 mg PO Q12H metoprolol succinate 25 mg tablet extended release 24 hr 25 mg PO DAILY Eliquis 5 mg tablet 5 mg PO Q12H aspirin 81 mg tablet,chewable 81 mg PO DAILY atorvastatin 20 mg tablet 80 mg PO HS valacyclovir 500 mg tablet 500 mg PO DAILY Trelegy Ellipta 200-62.5-25 mcg blister with device 1 inh INHALATION Q24H cholecalciferol (vitamin D3) [Vitamin D3] 125 mcg (5,000 unit) tablet 5,000 unit PO MOWEFR albuterol sulfate 90 mcg/actuation HFA aerosol inhaler 2 puff INHALATION Q4H PRN (Reason: shortness of breath or wheezing) Discontinued hydrochlorothiazide 25 mg tablet 12.5 mg PO DAILY docusate sodium 100 mg capsule 100 mg PO Q12H Other Ambulatory Orders: Complete Blood Count no Diff (Routine) Timeframe: 5 Days Location: Determined by Patient Ordered By: Maya Ovalle Date of admission: 01/25/25 15:07 Primary Care Provider: Pablo,Billy Vaughan Admitting Provider: Richar Roper Attending physician on admission: Maya Ovalle Condition: Stable Hospitalist MIPS Heart Failure (Exclusion) Patient has history of Heart Transplant or Left Ventricular Assistive Device?: No IF YES, STOP HERE Heart Failure (Qualifier) Patient has current or prior documentation of LVEF less than or equal to 40%, or mod/servere depressed LVSF?: No IF NO, STOP HERE
== END 2025-02-03 15:10 | DRG 522 ==
LOC: ANHED 13:40 → ANH3MEDSUR 14:39
PROVIDERS: Nurse Practitioner Family; Orthopaedic Surgery; Student in an Organized Health Care Education/Training Program; Admitting Provider Internal Medicine; Emergency Provider Emergency Medicine; PCP Internal Medicine; Visit Provider Student in an Organized Health Care Education/Training Program
PROC: 0SRS01A Replacement of Left Hip Joint, Femoral Surface with Metal Synthetic Substitute, Uncemented, Open Approach (ICD-10-PCS; CPT 27125; principal; 2025-01-27 13:30)
DX: S72.012A Unspecified intracapsular fracture of left femur, initial encounter for closed fracture (principal); Z94.81 Bone marrow transplant status; N17.9 Acute kidney failure, unspecified; W18.30XA Fall on same level, unspecified, initial encounter; E78.5 Hyperlipidemia, unspecified; G62.9 Polyneuropathy, unspecified; I48.91 Unspecified atrial fibrillation; I95.1 Orthostatic hypotension; I12.9 Hypertensive chronic kidney disease with stage 1 through stage 4 chronic kidney disease, or unspecified chronic kidney disease; I25.10 Atherosclerotic heart disease of native coronary artery without angina pectoris; I44.0 Atrioventricular block, first degree; J44.9 Chronic obstructive pulmonary disease, unspecified; M17.12 Unilateral primary osteoarthritis, left knee; M16.0 Bilateral primary osteoarthritis of hip; M21.372 Foot drop, left foot; M21.371 Foot drop, right foot; N18.31 Chronic kidney disease, stage 3a; Z85.038 Personal history of other malignant neoplasm of large intestine; Z85.79 Personal history of other malignant neoplasms of lymphoid, hematopoietic and related tissues; Z79.82 Long term (current) use of aspirin; Z79.01 Long term (current) use of anticoagulants; Z93.3 Colostomy status; Z92.21 Personal history of antineoplastic chemotherapy; Z87.891 Personal history of nicotine dependence
CPT/HCPCS: 36415; 71045; 72148; 72156; 72157; 73501; 73502; 73562; 80048; 80053; 81001; 82607; 82746; 83540; 83550; 83735; 83880; 85025; 85027; 85610; 85730; 86850; 86900; 86901; 88307; 88311; 93005; 94640; 96361; 96374; 96375; 97110; 97116; 97161; 97165; 97530; 97535; 99199; 99285; A9270; A9579; C1776; G0378; J0171; J0690; J1100; J2003; J2270; J2371; J2405; J2795; J3010; J3370; J7030; J7040; J7120

== ENCOUNTER → 2025-07-18 11:26 | Outpatient (REF) | payer MEDICARE, SELFPAY ==
--- NOTE | 2025-07-18 11:26 | S_PTH ---
PATIENT: Xavier Sosa LOC: [facility] U#:[id number] AGE/SX: 75/M ROOM: RE07/18/[address]: Cammy Bravo MD : [id number] BED: DIS: SPEC #: [id number] RECD: 07/18/25 12:29 STATUS: MARYAM ARCHER #: [id number] JANI: 07/18/25 11:[address]: Cammy Bravo DEPT: [facility] Surgical RECD BY: Monique Renee ENTERED: 07/18/25 12:29 SP TYPE: Surgical OTHR DR: UNKNOWN,DOCTOR Tissues: A - LESION Procedures: Hematoxylin and Eosin Stain Gross and Microscopic Level 4
--- OUTSIDE RECORDS SUMMARY | 2025-07-18 11:59 | XMS_ITS | Encounter Summary ---
Author Organization [facility] Address [address] [facility] [place] [address] Care Team Providers Care Biologist Aide Name Role Phone Billy Jalloh MD Primary Care Provider Jamie Arboleda MD Unavailable Ruben Park MD Unavailable [phone] Yoni Young CD Unavailable Vadim Xiong MD Unavailable [phone] Encounter Details Date Type Department Care Team (Latest Contact Info) Description 01/05/[address] [facility] - Lab Cytogenetics [address] [place] [address] Nicolas Arevalo MD [address] [place] [address] Waldenstrom macroglobulinemia (HCC) Social History Tobacco Use Types Packs/Day Years Used Date Smoking Tobacco: Never Assessed Sex and Gender Information Value Date Recorded Sex Assigned at Male 09/26/2021 11:03 AM CDT Legal Sex Male 5:14 PM [employer] DEVEL[employer] Gender Identity Male 09/26/2021 11:04 AM CDT Sexual Orientation Straight 09/26/2021 11 :04 AM CDT documented as of this encounter Plan of Treatment Upcoming Encounters Date Type Department Care Team (Late st Contact Info) Description 08/08/2025 10:45 AM CDT Office Visit [facility] - General Surgery [address] [place] [address], [place] [address] Irene Rojas MD [address] [place] [address] [address] [place] [address] 09/14/2025 11:00 AM CDT Office Visit [facility] - Pulmonology [address] [place] [address], [place] [address] Jamie Arboleda MD [address] [place] [address] 2L DIV OF PULMONARY/[place] [address] 10/02/2025 11:00 AM [employer] DEVELOPER Office Visit [facility] - Dermatology [address] [place] [address], [place] [address] Rosie Quigley MD [address] [place] [address] [address] [place] [address] 12/19/2025 10:00 AM [employer] DEVELOPER Appointment [facility] [address] [place] [address] Garrick Weldon MD [address] [place] [address] 2L [place] [address] 12/19/2025 11:00 AM [employer] DEVELOPER Appointment [facility]ULAR US [address] [place] [address] Garrick Weldon MD [address] [place] [address] 2L [place] [address] 12/26/2025 2:15 PM [employer] DEVELOPER Office Visit [facility] - Vascular Surgery [address] [place] [address], [place] [address] Garrick Weldon MD [address] [place] [address] 2L [place] [address] 01/04/2026 11:00 AM [employer] DEVELOPER Office Visit [facility] - Cardiology [address] [facility] [place] [address] [place] [address] Clifford Nolan MD [address] [facility] [facility] [address] [place] [address] documented as of this encounter Procedures Procedure Name Priority Date/Time Associated Diagnosis Comments CYTOGENETICS CANCER PANEL Routine 01/05/2017 2:00 PM [employer] DEVELOPER Waldenstrom macroglobulinemia documented in this encounter Results * CYTOGENETICS CANCER PANEL (01/05/2017 2:00 PM [employer] DEVELOPER) Indication for Study Waldenstrom Macroglobulinemia 7 10:45 PM [facility] CYTOGENOMIC LAB Results Cytogenetics Analysis and count of 6 cells (6 cells karyotyped, GTL-banding) from 72-hour Interleukin stimulated bone marrow cultures showed the following chromosome pattern: 46,XY[6] 7 10:45 PM [facility] CYTOGENOMIC LAB Interpretation Male chromosome analysis [...] prior abnormality was performed. 7 10:45 PM [facility]LE[facility]ULAR CYTOGENOMIC LAB at [address] Historical Cytogenomic Report [id number] on 2016 Results Analysis and count of 20 cells (8 cells karyotyped, GTL-banding) from 24-hour unstimulated and 72-hour Interleukin stimulated bone marrow cultures showed the following chromosome pattern: 46,XY[20] . Interpretation Male chromosome analysis showing 46,XY with no evidence for any clonal structural or numerical abnormality in all cells examined at 400 average band resolution. at 1321 . Historical Cytogenomic Report [id number] on 03/22/2015 Results Analysis and count of 20 cells (7 cells karyotyped, GTL-banding) from 72-hour Interleukin stimulated bone marrow cultures showed the following chromosome pattern: 46,XY[20] Interpretation Male chromosome analysis showing 46,XY with no evidence for any clonal structural or numerical abnormality in all cells examined at 400 average band resolution. at 0724 BF [id number] from 01/08/2015 Results Analysis of 200 interphase [...] average band resolution. . 7 10:45 PM [employer] DEVELOPER [facility] CYTOGENOMIC LAB Client Information [facility] - [id number] [facility] Lab #: [id number] CHRFISH, [id number] CHROBM 7 10:45 PM [employer] DEVELOPER [facility] CYTOGENOMIC LAB Embedded Images 7 10:45 PM [employer] DEVELOPER [facility] CYTOGENOMIC [facility] Other BONE MARROW SPECIMEN / Unknown 01/05/2017 2:00 PM [employer] DEVELOPER 01/05/2017 3:35 PM [employer] DEVELOPER us Nicolas Arevalo MD LAB - PATHOLOGY/CYTOLOGY ORDERA BLES Final Result [facility] CYTOGENOMIC [facility] [address] [facility] [place] [address] documented in this encounter Visit Diagnoses Diagnosis Waldenstrom macroglobulinemia (HCC) Macroglobulinemia documented in this encounter Additional Health Concerns Infection Onset Date Last Indicated Resolved Time MRSA 05/06/2025 05/06/2025 05/08/2025 7:16 AM CDT MRSA Hx 05/06/2025 05/08/2025 documented as of this encounter Care Teams Biologist Aide Relationship Specialty Start Date End Date Billy Jalloh MD [address] [place] [phone] PCP - General 07/08/16 Jamie Arboleda MD [address] [place] [address] Pulmonary Disease 07/08/18 Ruben Park MD [address] [place] [address] Hematology and Oncology 07/08/18 Yoni Young CD [address] [place] [address] Cardiology 07/08/18 Vadim Xiong MD [address] [place], [place] [id number] Gastroenterology 12/02/18 documented as of this encounter
--- OUTSIDE RECORDS SUMMARY | 2025-07-18 11:59 | XMS_ITS | Clinical Summary ---
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 This disclosure is being madepursuant to the Care Everywhere program and may not contain all information available regarding this patient. Last updated 18.[facility] Allergies Active Allergy Reactions Criticality Noted Date Comments Gabapentin Rash,Urticaria,Unknown Medium 03/15/2015 Suspect the rash was caused by gabapentin Medications * Be aware that medications may not be up to date on this document. Alwaysverify current medications with the patient. valACYclovir (VALTREX) 500 MG tablet Take 1 (one) tablet by mouth once daily 05/29/ 022 Active ketoconazole (Nizoral) 2 % shampooIndicati ons:Rash and other nonspecific skin eruption,Other seborrheic dermatitis Apply to wet hair, leave on for 3 minutes, then rinse; three times weekly. 30 days supply 120 mL 11 023 Active Vitamin D (Vitamin D3) 50 MCG (2000 UT) capsule Take 1 (one) capsule by mouth Twice Daily, Three Times a Week Active metoprolol succinate XL 24hr (Toprol XL) 25 MG tabletIndicatio ns:Persistent atrial fibrillation (HCC) TAKE 1 TABLET BY MOUTH EVERY DAY 90 tablet 3 024 Active albuterol HFA (Proventil; Ventolin; Proair) 108 (90 Base) MCG/ACT inhaler INHALE 2 PUFFS BY MOUTH EVERY 4 HOURS NEEDED 8 g 5 024 Active OtherIndication s:Actinic Keratosis Apply fluorouracil and calcipotriene mixture to affected areas on the face twice daily for 4 days and BID for 6 days on the hands and forearms. Avoid the eyes. Reasons: Actinic Keratosis 60 g 024 Active fluticasone-ume clidin-vilant (Trelegy Ellipta) 200-62.5-25 MCG/ACT inhaler Inhale 1 (one) puff by mouth once daily 60 Each 3 025 Active flecainide (Tambocor) 150 MG tablet TAKE 1 TABLET BY MOUTH TWICE A DAY 60 tablet 5 025 Active benzonatate (Tessalon) 100 MG capsule Take 1 (one) capsule by mouth every 8 hours as needed for Cough (dry cough) 025 Active tamsulosin (Flomax) 0.4 MG capsule Take 1 (one) capsule by mouth once daily At the same time every day after a meal. 025 Active Protonix 40 MG tablet Take 1 (one) tablet by mouth once daily 025 Active furosemide (Lasix) 20 MG tablet Take 1 (one) tablet by mouth as needed (as needed for swelling up to 1 tablet daily) 90 tablet 3 025 Active oxyCODONE, immediate release, (Roxicodone) 5 MG tabletIndicatio ns:Wound infection Take 1 (one) tablet by mouth every 6 hours as needed 025 Active acetaminophen (Tylenol) 500 MG tablet Take 1 (one) tablet by mouth every 4 hours as needed Maximum allowable Acetaminophen amount = 4 Grams (4000 mg) / 24 hours. Active fluticasone propionate (Flonase) 50 MCG/ACT nasal spray [place] 2 (two) sprays into each nostril once daily as needed (for allergy symptoms) Active bisacodyl (Dulcolax) 10 MG suppository Insert 1 (one) suppository into the rectum once as needed for Constipation (no BM 4 hours after MOM/Magnesium hydroxide) Active magnesium hydroxide (Milk Of Magnesia) 400 MG/5ML suspension Take 30 mL by mouth once as needed for Constipation (no BM in 72 hours) Active polyethylene glycol 3350 (Miralax) 17 g packet Take 17 (seventeen) g by mouth once daily Active [facility] Senna 8.6 MG tablet Take 1 (one) tablet by mouth 2 times daily Active amoxicillin (Amoxil) 875 MG tablet Take 1 tablet every 12 hours by oral route for 39 days. Active fludrocortisone (Florinef) 0.1 MG tablet Take 1 (one) tablet by mouth once daily 30 tablet 11 025 2025 Active atorvastatin (Lipitor) 80 MG tablet Take 1 (one) tablet by mouth once daily 90 tablet 3 Active clopidogrel (plaVIX) 75 MG tabletIndicatio ns:Peripheral Arterial Disease Take 1 (one) tablet by mouth once daily Reasons: Disease of the Peripheral Arteries 30 tablet Active apixaban (Eliquis) 5 MG tablet TAKE 1 TABLET BY MOUTH EVERY 12 HOURS 90 tablet 3 Active apixaban (Eliquis) 5 MG tablet Take 1 (one) tablet by mouth 2 times daily 180 tablet 3 024 2024 Discontinued clopidogrel (plaVIX) 75 MG tablet Take 1 (one) tablet by mouth once daily 025 2024 Discontinued(R eorder) amoxicillin-cla vulanate (Augmentin) 875-125 MG tablet Take 1 (one) tablet by mouth 2 times daily with morning and evening meal for 39 days 025 2024 ciprofloxacin (Cipro) 750 MG tablet Take 1 (one) tablet by mouth 2 times daily for 39 days 025 2024 Active Problems Problem Noted Date Diagnosed Date Degenerative arthritis of lumbar spine 5 Shock 05/05/2025 Sepsis 05/05/2025 Wound infection 05/05/2025 Acute on chronic blood loss anemia 05/05/2025 VICTOR HUGO (acute kidney injury) 05/05/2025 Pseudoaneurysm 04/10/2025 Pseudoaneurysm of right femoral artery PAD (peripheral artery disease) 02/28/2025 Assessment & Plan (03/01/2025 3:44 PM CDT): -TRICIA w moderate PAD. -CTA: .Extensive atherosclerotic disease of the arteries including the proximal occlusion of the inferior mesenteric artery with distal reconstitution, near- total occlusion of right common iliac artery with distal reconstitution, occlusion of distal right posterior tibial artery with distal reconstitution, occlusion of left internal iliac artery with distal reconstitution, near-total/total occlusion of the distal left common femoral artery. -S/P Angiogram and right common iliac artery stenting. Patient will be discharged on aspirin and Plavix -Discontinued Eliquis. -Was started on a heparin drip till Angiogram and later switched to Lovenox sc BID given pt couldn't sleep with the heparin drip noise. -VS are on board. Assessment & Plan (02/28/2025 4:43 PM CDT): -TRICIA w moderate PAD. -CTA: .Extensive atherosclerotic disease of the arteries including the proximal occlusion of the inferior mesenteric artery with distal reconstitution, near- total occlusion of right common iliac artery with distal reconstitution, occlusion of distal right posterior tibial artery with distal reconstitution, occlusion of left internal iliac artery with distal reconstitution, near-total/total occlusion of the distal left common femoral artery. -Plan for Angiogram on Thursday. -Discontinued Eliquis. -Was started on a heparin drip till Angiogram and later switched to Lovenox sc BID given pt couldn't sleep with the heparin drip noise. -VS are on board. Orthostatic hypotension 02/17/2025 Assessment & Plan (03/01/2025 3:44 PM CDT): - Pt usually Hx of orthostatic on and off x 8yrs - Denies taking any BP meds, except metop. (HCTZ was held in the AR) - Endorses good oral intake. However mentioned when he had IVF in the rehab he improved and was able to walk that day wo dizziness - Ddx: cardiac cause vs adrenal insufficiency vs autonomic neuropathy vs other -Orthostatic vitals positive -EKG with first-degree AV block also noted on previous EKG 01/27/25 -Dobutamine stress Echo on 07/2021 with non-diagnostic with submaximal HR -AM cortisol WNL (15.3) -Iron studies, vitamin B12, folate and TSH level are unremarkable. -Continue abdominal binder -Pt currently wearing old binder from rehab. Communicated to RN due to make sure correct binder in place. -Echo ordered- limited study -Fall precautions -Continue telemetry monitoring -PT/OT - Cardiology consulted. Family request, patient follows with Dr. Nolan-> continue current meds, resume beta-lonnie, Holter monitor on discharge as well as midodrine. -currently on midodrine 10 mg t.i.d. and Florinef 0.1 mg daily. increased Florinef to 0.2 mg. -Discontinued compression stockings given PAD. Assessment & Plan (02/28/2025 4:43 PM CDT): - Pt usually Hx of orthostatic on and off x 8yrs - Denies taking any BP meds, except metop. (HCTZ was held in the AR) - Endorses good oral intake. However mentioned when he had IVF in the rehab he improved and was able to walk that day wo dizziness - Ddx: cardiac cause vs adrenal insufficiency vs autonomic neuropathy vs other -Orthostatic vitals positive -EKG with first-degree AV block also noted on previous EKG 01/27/25 -Dobutamine stress Echo on 07/2021 with non-diagnostic with submaximal HR -AM cortisol WNL (15.3) -Iron studies, vitamin B12, folate and TSH level are unremarkable. -Continue abdominal binder -Pt currently wearing old binder from rehab. Communicated to RN due to make sure correct binder in place. -Echo ordered- limited study -Fall precautions -Continue telemetry monitoring -PT/OT - Cardiology consulted. Family request, patient follows with Dr. Nolan-> continue current meds, resume beta-lonnie, Holter monitor on discharge as well as midodrine. -currently on midodrine 10 mg t.i.d. and Florinef 0.1 mg daily. increased Florinef to 0.2 mg. -Discontinued compression stockings given PAD. Assessment & Plan (02/18/2025 2:08 PM CDT): -Per outside facility SBP drops 10-20mmhg upon sitting to standing with symptomatic lightheadedness prohibiting participation in rehab therapy -Per , Pt usually has low BP before and during IVIG treatments, and sometimes gets IV fluids. Hypotension recovers before IVIG completes. -Denies taking any BP meds, except metop. -Endorses good oral intake. -Ddx: cardiac cause vs adrenal insufficiency vs autonomic neuropathy vs other -Orthostatic vitals positive per RN 02/17/25: 0921A - BP 153/72 MAP 102 supine 0924[place] [address] MAP 97 sitting 0928A - BP 85/61 MAP 69 standing. Pt endorsed mildly lightheaded 0929A - BP 128/72 MAP 91 sitting -EKG with first-degree AV block also noted on previous EKG 01/27/25 -CXR without active cardiac or pulmonary disease -Dobutamine stress Echo on 07/2021 with non-diagnostic with submaximal HR -AM cortisol WNL (15.3) Plan -Resume midodrine and Florinef -Continue abdominal binder and LE compression stockings -Pt currently wearing old binder from rehab. Communicated to RN due to make sure correct binder in place. -Echo ordered > follow -Fall precautions -Continue telemetry monitoring -PT/OT eval once appropriate Assessment & Plan (02/17/2025 4:41 PM CDT): -Per outside facility SBP drops 10-20mmhg upon sitting to standing with symptomatic lightheadedness prohibiting participation in rehab therapy -Per , Pt usually has low BP before and during IVIG treatments, and sometimes gets IV fluids. Hypotension recovers before IVIG completes. -Denies taking any BP meds, except metop. -Endorses good oral intake. -Ddx: cardiac cause vs adrenal insufficiency vs autonomic neuropathy vs other -Orthostatic vitals positive per RN 02/17/25: 0921A - BP 153/72 MAP 102 supine 0924[place] [address] MAP 97 sitting 0928A - BP 85/61 MAP 69 standing. Pt endorsed mildly lightheaded 0929A - BP 128/72 MAP 91 sitting -EKG with first-degree AV block also noted on previous EKG 01/27/25 -CXR without active cardiac or pulmonary disease -Dobutamine stress Echo on 07/2021 with non-diagnostic with submaximal HR Plan -Resume midodrine and Florinef -Start abdominal binder and continue LE compression stockings -Echo ordered > follow -AM cortisol ordered > follow -Fall precautions -Continue telemetry monitoring -PT/OT eval once appropriate Assessment & Plan (02/17/2025 5:16 AM CDT): Per outside facility SBP drops 10-20mmhg upon sitting to standing with symptomatic lightheadedness prohibiting participation in rehab therapy Dfx medication induced, dehydration , autonomic neuropathy Plan Orthostatic BP Fall precautsinus Follows [facility] outpatient EKG rhythm with first-degree AV block also noted on previous EKG 01/27/25 CXR Prelim CXR: No active cardiac or pulmonary disease. Fine linear fibrotic changes seen at both lung bases. No focal consolidation, pleural effusion, or pneumothorax. Resume midodrine and Florinef Consider consult to cards and hem/onc for further evaluation of orthostatic hypotension Patient would also like PT/OT eval please consider when appropriate History of hypertension 02/17/2025 Assessment & Plan (02/17/2025 4:53 AM CDT): See blow S/p left hip fracture 02/17/2025 Assessment & Plan (03/01/2025 3:44 PM CDT): -2/2 ground level fall 01/24/25 -OSH imaging revealed subcapital fracture of the left femoral neck repair 01/27/2025 Assessment & Plan (02/28/2025 7:39 AM CDT): -2/2 ground level fall 01/24/25 -OSH imaging revealed subcapital fracture of the left femoral neck repair 01/27/2025 Assessment & Plan (02/18/2025 8:48 AM CDT): -2/2 ground level fall 01/24/25 -OSH imaging revealed subcapital fracture of the left femoral neck repair 01/27/2025 Assessment & Plan (02/17/2025 4:41 PM CDT): -2/2 ground level fall 01/24/25 -OSH imaging revealed subcapital fracture of the left femoral neck repair 01/27/2025 Assessment & Plan (02/17/2025 4:53 AM CDT): 2/2 ground level fall 01/24/25 OSH imaging revealed subcapital fracture of the left femoral neck repair 01/27/2025 Colostomy present 02/17/2025 Assessment & Plan (03/01/2025 3:44 PM CDT): BPH? -patient also mentioned having hesitancy, intermittency and feeling of incomplete emptying. Has never been diagnosed with BPH before. -Started Flomax on 02/24-> has improved sx now. Assessment & Plan (02/28/2025 4:43 PM CDT): BPH? -patient also mentioned having hesitancy, intermittency and feeling of incomplete emptying. Has never been diagnosed with BPH before. -Started Flomax on 02/24-> has improved sx now. Assessment & Plan (02/17/2025 4:53 AM CDT): Colonoscopy status post rectal adenocarcinoma. Patient requires assistance managing colostomy d/t lightheadedness upon standing Continue to monitor History of colorectal cancer 02/17/2025 Assessment & Plan (03/01/2025 3:44 PM CDT): -Continue nursing care for colostomy Assessment & Plan (02/28/2025 7:39 AM CDT): -Continue nursing care for colostomy Assessment & Plan (02/18/2025 8:48 AM CDT): -Continue nursing care for colostomy Assessment & Plan (02/17/2025 4:41 PM CDT): -Continue nursing care for colostomy Assessment & Plan (02/17/2025 4:53 AM CDT): See below Neuropathy 02/17/2025 Assessment & Plan (03/01/2025 3:44 PM CDT): -Late progressive neuropathy s/p rectal cancer -Pt has allergy to gabapentin Assessment & Plan (02/28/2025 7:39 AM CDT): -Late progressive neuropathy s/p rectal cancer -Pt has allergy to gabapentin Assessment & Plan (02/18/2025 8:48 AM CDT): -Late progressive neuropathy s/p rectal cancer -Pt has allergy to gabapentin Assessment & Plan (02/17/2025 4:41 PM CDT): -Late progressive neuropathy s/p rectal cancer -Pt has allergy to gabapentin Assessment & Plan (02/17/2025 4:53 AM CDT): Late progressive neuropathy s/p rectal ca Right foot drop 02/17/2025 Assessment & Plan (03/01/2025 3:44 PM CDT): -Wears AFO Assessment & Plan (02/28/2025 7:39 AM CDT): -Wears AFO Assessment & Plan (02/18/2025 8:48 AM CDT): -Wears AFO Assessment & Plan (02/17/2025 4:41 PM CDT): -Wears AFO Assessment & Plan (02/17/2025 4:53 AM CDT): Wears AFO Pressure ulcer 02/17/2025 Assessment & Plan (03/01/2025 3:44 PM CDT): -Present on admission -Ulcer to heel of R foot -Bruising/ulcer to L lower lateral leg, reports from leg brace -Continue nursing care and heel boots (ordered) Assessment & Plan (02/28/2025 7:39 AM CDT): -Present on admission -Ulcer to heel of R foot -Bruising/ulcer to L lower lateral leg, reports from leg brace -Continue nursing care and heel boots (ordered) Assessment & Plan (02/18/2025 2:08 PM CDT): -Present on admission -Ulcer to heel of R foot -Bruising/ulcer to L lower lateral leg, reports from leg brace -Continue nursing care and heel boots (ordered) Assessment & Plan (02/17/2025 4:41 PM CDT): -Noted to heel of R foot on arrival -Bruising/ulcer to L lower lateral leg, reports from leg brace -Continue nursing care Assessment & Plan (02/17/2025 4:53 AM CDT): -blister Noted to heel of R foot on arrival Brusing/ulcer to L lower lateral leg, reports from leg brace Consult to wound care Coronary artery disease invo lving [place] coronary artery of [place] heart with angina pectoris 12/27/2024 Assessment & Plan (03/01/2025 3:44 PM CDT): -Heart cath on 01/04/2025: LM 30-40% (MLA 9.5 cm2). Prox RCA lesion is 50% stenosed. Negative by iFR (0.99) Lcx and LAD without obstructive disease -Continue home atorvastatin and aspirin Assessment & Plan (02/28/2025 7:39 AM CDT): -Heart cath on 01/04/2025: LM 30-40% (MLA 9.5 cm2). Prox RCA lesion is 50% stenosed. Negative by iFR (0.99) Lcx and LAD without obstructive disease -Continue home atorvastatin and aspirin Assessment & Plan (02/18/2025 8:48 AM CDT): -Heart cath on 01/04/2025: LM 30-40% (MLA 9.5 cm2). Prox RCA lesion is 50% stenosed. Negative by iFR (0.99) Lcx and LAD without obstructive disease -Continue home atorvastatin and aspirin Assessment & Plan (02/17/2025 4:41 PM CDT): -Heart cath on 01/04/2025: LM 30-40% (MLA 9.5 cm2). Prox RCA lesion is 50% stenosed. Negative by iFR (0.99) Lcx and LAD without obstructive disease -Continue home atorvastatin and aspirin Assessment & Plan (02/17/2025 4:53 AM CDT): CAD s/p C 01/04/25 resume home atorvastatin and aspirin Hyperlipidemia 07/11/2024 Actinic keratosis 03/02/2023 Neoplasm of uncertain behavior of skin History of nonmelanoma skin cancer 03/02/2023 Lentigines 03/02/2023 Multiple benign melanocytic nevi of upper extremity, lower extremity, and trunk 03/02/2023 Seborrheic keratosis 03/02/2023 Xerosis cutis 03/02/2023 Acute bronchitis 08/26/2021 Dermatophytosis 08/26/2021 Gastroesophageal reflux disease 08/26/2021 History of malignant lymphoma 08/26/2021 Tobacco user 08/26/2021 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 Malignant tumor of rectum 01/28/2019 Vasovagal syncope 08/15/2018 Need for revaccination 07/09/2018 Chronic obstructive lung disease 07/07/2018 Assessment & Plan (03/01/2025 3:44 PM CDT): -Resume Symbicort, Incruse Ellipta -Resume PRN albuterol -O2 titration protocol Assessment & Plan (02/28/2025 7:39 AM CDT): -Resume Symbicort, Incruse Ellipta -Resume PRN albuterol -O2 titration protocol Assessment & Plan (02/18/2025 8:48 AM CDT): -Resume Symbicort, Incruse Ellipta -Resume PRN albuterol -O2 titration protocol Assessment & Plan (02/17/2025 4:41 PM CDT): -Resume Symbicort, Incruse Ellipta -Resume PRN albuterol -O2 titration protocol Assessment & Plan (02/17/2025 4:53 AM CDT): Resume PRN albuterol inhaler and daily ellipta O2 protocol CTM Chronic respiratory failure with hypoxia 018 Overview (08/26/2021): Documented in medical record Hypogammaglobulinemia, acquired 06/21/2018 Shortness of breath 05/31/2018 Cough, persistent 03/09/2018 Persistent atrial fibrillation 02/28/2018 Other intermediate designer (current) drug therapy 6 Waldenstrom's macroglobulinemia 09/15/2016 Assessment & Plan (03/01/2025 3:44 PM CDT): -S/p bone marrow transplant 2015 -Follows with Heme/onc at [facility] -Receives IVIG q8 week infusion -Per , last infusion was scheduled on 02/09, but missed as Pt was in rehab -next IgG infusion was rescheduled to (02/23) at [facility]. -I have involved Hematology for IVIG as per 's request-pending recs -IGG level is low 553, normal IGM - S/P IVIG on 02/23 Assessment & Plan (02/28/2025 4:43 PM CDT): -S/p bone marrow transplant 2016 -Follows with Heme/onc at [facility] -Receives IVIG q8 week infusion -Per , last infusion was scheduled on 02/09, but missed as Pt was in rehab -next IgG infusion was rescheduled to (02/23) at [facility]. -I have involved Hematology for IVIG as per 's request-pending recs -IGG level is low 553, normal IGM - S/P IVIG on 02/23 Assessment & Plan (02/18/2025 2:08 PM CDT): -S/p bone marrow transplant 2016 -Follows with Heme/onc at [facility] -Receives IVIG q8 week infusion -Per , last infusion was scheduled on 02/09, but missed as Pt was in rehab -next IgG infusion was rescheduled to (02/23) at [facility]. Assessment & Plan (02/17/2025 4:41 PM CDT): -S/p bone marrow transplant 2016 -Follows with Heme/onc at [facility] -Receives IVIG q8 week infusion -Per , last infusion was scheduled on 02/09, but missed as Pt was in rehab -next IgG infusion was rescheduled to (02/23) at [facility]. Assessment & Plan (02/17/2025 4:53 AM CDT): S/p bone marrow transplant 2016 IgG q8 week infusion per heme/onc [facility] reports significant hypotension s/p infusion but reports BP recovers Continue monitor Centrilobular emphysema 08/28/2016 Overview (08/26/2021): Documented in medical record Rash and other nonspecific skin eruption 016 A-fib 11/16/2015 Assessment & Plan (03/01/2025 3:44 PM CDT): -[id number] 4 - vascular disease, HTN, age -holding home eliquis for now -Resume flecainide and metoprolol -Continue telemetry monitoring Assessment & Plan (02/28/2025 7:39 AM CDT): -[id number] 4 - vascular disease, HTN, age -Resume home eliquis -Resume flecainide and metoprolol -Continue telemetry monitoring Assessment & Plan (02/18/2025 2:10 PM CDT): -[id number] 4 - vascular disease, HTN, age -Resume home eliquis -Resume flecainide and metoprolol -Continue telemetry monitoring Assessment & Plan (02/17/2025 4:41 PM CDT): -[id number] 4 - vascular disease, HTN, age -Resume home eliquis, flecainide and metoprolol -Continue telemetry monitoring Assessment & Plan (02/17/2025 4:53 AM CDT): Resume home Eliquis,flecainide, metoprolol CTM Other hereditary and idiopathic neuropathies 04/2015 Polyneuropathy 04/04/2015 Primary malignant neoplasm 01/05/2015 Encounters Date Type Department Care Team Description 07/01/2025 Refill [facility] - Cardiology [address] [place] [address] Tay Nolan MD Refill Request 06/20/2025 2:15 PM CDT Office Visit [facility] - Vascular Surgery [address], [place] [phone] Garrick Weldon MD PAD (peripheral artery disease) (Primary Dx); History of intravascular stent placement 06/20/2025 1:00 PM CDT Office Visit [facility] - Infectious Disease [address] [place] [phone] Brandon Riley MD Deep incisional surgical site infection (Primary Dx); Abscess of right groin 06/20/2025 Travel 06/16/2025 1:06 PM CDT - 06/16/2025 11:59 PM CDT Hospital Encounter [facility] [address] [place] [address] Garrick Weldon MD Discharge Disposition: Home or Self Care 06/16/2025 1:00 PM CDT - 06/16/2025 1:05 PM CDT Hospital Encounter [facility] [address] [place] [address] Garrick Weldon MD Discharge Disposition: Home or Self Care 06/14/2025 11:00 AM CDT Office Visit [facility] - Plastic Surgery [address] [place] [phone] Dominic Buitrago MD Wound of right groin, subsequent encounter (Primary Dx) 06/14/2025 Travel 06/12/2025 3:00 PM CDT Office Visit [facility] - Cardiology [address] [facility] [address] [place] [address] [place] [address] Tay Nolan MD Persistent atrial fibrillation (HCC) (Primary Dx); Orthostatic hypotension 06/12/2025 Travel 05/31/2025 11:00 AM CDT Office Visit [facility] - Plastic Surgery [address] [place] [phone] Dominic Buitrago MD Wound of right groin, subsequent encounter (Primary Dx) 05/31/2025 Telephone [facility] - Plastic Surgery [address] [place] [phone] Dominic Buitrago MD Follow-up 05/31/2025 Travel 05/24/2025 11:15 AM CDT Office Visit [facility] - Plastic Surgery [address] [place] [phone] Dominic Buitrago MD Wound of right groin, subsequent encounter (Primary Dx) 05/24/2025 Travel 05/23/2025 11:00 AM CDT Office Visit [facility] - Infectious Disease [address], [place] [address] Brandon Riley MD Deep incisional surgical site infection (Primary Dx); Abscess of right groin 05/23/2025 Travel 05/17/2025 11:15 AM CDT Office Visit [facility] - Plastic Surgery [address] [place] [address] Dominic Buitrago MD Wound of right groin, subsequent encounter (Primary Dx); Pseudoaneurysm 05/17/2025 Telephone [facility] - Plastic Surgery [address] [place] [address] Dominic Buitrago MD Follow-up 05/17/2025 Travel 05/16/2025 2:45 PM CDT Office Visit [facility] - Vascular Surgery [facility] [place] [address] Garrick Weldon MD Pseudoaneurysm of right femoral artery (Primary Dx) 05/16/2025 Travel 05/11/2025 Telephone [facility] - Centralized Scheduling [address] [place] [address] Brandon Riley MD Appointment 05/05/2025 2:35 PM CDT - 05/05/2025 4:02 PM CDT Surgery [facility] [address] [place] [address] Alisha Jimenez MD GROIN IRRIGATION/DEBRIDEMEN T WOUND/TISSUE MUSCLE FLAP and WOUND VAC LEVEL 2 @1258 05/05/2025 1:54 PM CDT Anesthesia Event [facility] [address] [place] [address] Beck Goldberg MD Holtermann, Kirstie, MD 05/05/2025 11:34 AM CDT - 05/12/2025 10:49 PM CDT Hospital Encounter [facility] ACUTE [address] [place] [address] Socorro Mariee MD Morreale, Peter J III, MD Wittgen, Catherine, MD Kamel, Ghassan, MD Barrios, Christopher R, MD Majeed, Honorio Reyna MD Vascular Surgery Discharge Disposition: Rehab:Inpatient 05/05/2025 Travel 05/04/2025 1:30 PM CDT Office Visit [facility] Vascular Surgery [address], [place] [address] Carin Weldon, PACodyC Pseudoaneurysm of right femoral artery (Primary Dx); PAD (peripheral artery disease) 05/04/2025 Travel 05/03/2025 Telephone [facility] [address] [place] [address] Jamie Finnegan MD Wound/Incision Check 05/01/2025 Telephone [facility] [address] [place] [address] Omayra Barroso, RADIATION CONTROL HEALTH PHYSICIST-PC SUPPORT SPECIALIST Swelling Ankle 04/21/2025 7:30 AM CDT Anesthesia Event [facility] [address] [place] [address] Shahzad Mims MD Keeven, Grace C, RADIATION CONTROL HEALTH PHYSICIST-PC SUPPORT SPECIALIST 04/21/2025 7:00 AM CDT - 04/21/2025 12:00 PM CDT Surgery [facility] [address] [place] [address] Garrick Weldon MD Left Iliofemoral Bypass 04/21/2025 5:07 AM CDT - 04/24/2025 11:45 AM CDT Hospital Encounter [facility] ACUTE [address] [place] [address] Garrick Weldon MD Surgery General Discharge Disposition: Home or Self Care 04/20/2025 Travel 04/19/2025 9:53 AM CDT - 04/19/2025 11:59 PM CDT Hospital Encounter [facility] [address] [place] [address] Courtney Vallejo PA Discharge Disposition: Home or Self Care 04/17/2025 11:23 AM CDT - 04/17/2025 11:59 PM CDT Hospital Encounter [facility] DRAW STATION [address] [place] [address] Discharge Disposition: Home or Self Care 04/17/2025 10:00 AM CDT - 04/17/2025 11:22 AM CDT Hospital Encounter [facility] [address] [place] [address] Discharge Disposition: Home or Self Care 04/17/2025 Travel from Last 3 Months Immunizations Immunization Administration Dates Next Due Covid Moderna primary monova lent 12+ yr 0.5mL 08/09/2021,02/12/2021,01/15/2021 Covid Pfizer primary Monoval ent 12+ yr 0.3ml 03/03/2022 Covid Pfizer primary monoval ent 12+ yr 0.3mL Purple cap 02/12/2021,01/22/2021 DTaP VACCINE IM (6wk-6yrs) 01/28/2018,11/05/2017 ,09/04/2017 HEP A/HEP B 03/30/2018,11/05/2017,09/04/2017 HEP B VACCINE, ADULT 3 DOSE 03/30/2018, 7,09/04/2017 HIB-PRP-T 4 DOSE 01/28/2018,11/05/2017, 7 INFLUENZA VACCINE 08/04/2021, 9,08/09/2018,01/28,11/05/2017,09/04/2017,09/06/2013 INFLUENZA VACCINE, ADJUVANTE D, QUADR. (FLUAD QUADRIVALENT; 65Y+) (AIIV4) 09/03/2020 INFLUENZA VACCINE, HIGH-DOSE , QUADR. (FLUZONE HIGH-DOSE QUADRIVALENT; 65Y+), 0.7 ML (HD-IIV4) 09/02/2019,08/12/2018,08/24/2017,01/05,09/02/2015 MENINGOCOCCAL ACWY (MCV4P) VAC IM 09/04/2017 MENINGOCOCCAL ACWY MENVEO 07/25/2020 PNEUMOCOCCAL PCV VACCINE 03/30/2018,07/31/2014 PNEUMOCOCCAL PPSV23 03/30/2018,07/31/2014 POLIO IPV 01/28/2018,11/05/2017,09/04/2017 Pneumococcal Pcv13 Conj 01/28/2018,11/05,09/04/2017,07/04 RSV AREXVY 60YR+ 0.5ML 10/05/2023 TDAP (7yrs+) 01/28/2018,11/05/2017,09/04/2017 ZOSTER VACCINE, LIVE 09/12/2013,08/30/2012 [...] 04/2000 Smokeless Tobacco: Never Tobacco Cessation:Counseling Given: No Alcohol Use Standard Drinks/Week Comments Yes 0.8 (1 standard drink = 0.6 oz p ure alcohol) beer once in a while AUDIT-C Answer Date Recorded Q1: How often do you have a drink containing alc ohol? Monthly or less 05/06/2025 Q2: How many drinks containi ng alcohol do you have on a typical day when you are drinking? 3 or 4 05/06/2025 Q3: How often do you have si x or more drinks on one occasion? Never 05/06/2025 Overall Financial Resource Strain (CARDIA) Answe r Date Recorded How hard is it for you to pa y for the very basics like food, housing, medical care, and heating? Not hard at all 05/06/2025 PHQ-2 Answer Date Recorded Patient Health Questionnaire-2 Score 0 05/23/2025 [employer] [place] [facility] Occup[facility] - Occupational Stress Questionnaire Answer Date Recorded Do you feel stress - tense, restless, nervous, or anxious, or unable to sleep at night because your mind is troubled all the time - these days? Not at all 05/06/2025 Hunger Vital Sign Answer Date Recorded Within the past 12 months, y ou worried that your food would run out before you got the money to buy more. Never true 05/06/20 25 Within the past 12 months, t he food you bought just didn't last and you didn't have money to get more. Never true 05/06/2025 PRAPARE - Transportation Answer Date Re corded In the past 12 months, has l ack of transportation kept you from medical appointments or from getting medications? No 05/2025 In the past 12 months, has l ack of transportation kept you from meetings, work, or from getting things needed for daily living? No 05/06/2025 Housing Stability Vital Sign Answer Marshal e Recorded In the last 12 months, was t here a time when you were not able to pay the mortgage or rent on time? No 05/06/2025 In the past 12 months, how m any times have you moved where you were living? 0 05/06/2025 At any time in the past 12 m [facility], were you homeless or living in a half-way (including now)? No 05/06/2025 Sex and Gender Information Value Date Recorded Sex Assigned at Male 09/26/2021 11:03 AM CDT Legal Sex Male 5:14 PM DIRECTOR OF ONCOLOGY Gender Identity Male 09/26/2021 11:04 AM CDT Sexual Orientation Straight 09/26/2021 11 :04 AM CDT Last Filed Vital Signs Vital Sign Reading Time Taken Comments Blood Pressure 137/68 06/20/2025 1:45 PM CDT Pulse 60 06/20/2025 1:45 PM CDT Temperature 36.1 C (97 F) 06/20/2025 1:45 PM CDT Respiratory Rate 18 06/20/2025 12:59 PM CDT Oxygen Saturation 94% 06/20/2025 1:45 PM CDT Inhaled Oxygen Concentration 21% 04/10/2025 6 :00 PM CDT Weight 96.2 kg (212 lb) 06/20/2025 1:45 PM CDT Height 193 cm (6' 4) 06/20/2025 1:45 PM CDT Body Mass Index 25.81 06/20/2025 1:45 PM CDT Plan of Treatment Upcoming Encounters Date Type Department Care Team (Late st Contact Info) Description 08/08/2025 10:45 AM CDT Office Visit [facility] - General Surgery [address] [place] [address], [place] [address] Irene Rojas MD [address] [place] [address] [address] [place] [address] 09/14/2025 11:00 AM CDT Office [facility] - Pulmonology [address] [place] [address], [place] [address] Jamie Arboleda MD [address] [place] [address] 2[address] DIV OF PULMONARY/[place] [address] 10/02/2025 11:00 AM DIRECTOR OF ONCOLOGY Office Visit [facility] - Dermatology [address] [place] [address], [place] [address] Rosie Quigley MD [address] [place] [address] [address] [place] [address] 12/19/2025 10:00 AM DIRECTOR OF ONCOLOGY Appointment [facility] [address] [place] [address] Garrick Weldon MD [address] [place] [address] [address] [place] [address] 12/19/2025 11:00 AM DIRECTOR OF ONCOLOGY Appointment [facility] [address] [place] [address] Garrick Weldon MD [address] [place] [address] [address] [place] [address] 12/26/2025 2:15 PM DIRECTOR OF ONCOLOGY Office Visit [facility] - Vascular Surgery [address] [place] [address], [place] [address] Garrick Weldon MD [address] [place] [address] 01/04/2026 11:00 AM DIRECTOR OF ONCOLOGY Office Visit [facility] - Cardiology [address] [facility], [address] [place] [address] Tay Nolan MD [address] [facility] [place] [address] Health Maintenance Due Date Last Done Comments COLOGUARD (AGES 45-75) - COLON CA SCREENING 1950 CT COLONOGRAPHY - COLON CA SCREENING 1950 FIT - COLON CA SCREENING 1950 FLEX SIG - COLON CA SCREENING 1950 MEDICARE AWV 12 MONTHS 1950 COVID-19 VACCINE ( season) 2024 09/03/2022, 03/03/2022, 08/09/2021, Additional history exists INFLUENZA VACCINE (#1) 2025 , 09/03/2020, 09/02/2019, Additional history exists DTAP/TDAP/TD VACCINES (7 - Td or Tdap) 01/29/2028 01/28/2018, 01/28/2018, 11/05/2017, Additional history exists SCREENING FOR DIABETES 05/12/2028 5, 05/11/2025, 05/10/2025, Additional history exists COLON MONITORING 07/20/2033 07/20/2023, , 07/20/2020, Additional history exists COLONOSCOPY - COLON CA SCREENING 07/20/2033 07/20/2023, 07/20/2023, 07/20/2020, Additional history exists Colorectal Cancer Screening 07/20/2033 HIB VACCINE Aged Out 01/28/2018, 05/2017, 09/04/2017 No longer eligible based on patient's age to complete this topic HEPATITIS B VACCINE Completed 03/30/2018, 03/30/2018, 11/05/2017, Additional history exists PNEUMOCOCCAL VACCINE 50+ Completed 018, 03/30/2018, 01/28/2018, Additional history exists MENINGOCOCCAL GROUPS A/C/Y/W VACCINE Aged Out 07/25/2020, 09/04/2017 No longer eligibl e based on patient's age to complete this topic ZOSTER VACCINE Completed 07/25/2020, 05/01, 09/12/2013, Additional history exists Respiratory Syncytial Virus (RSV) Vaccine Pt: or over 60 yrs Completed 10/05/2023 HEPATITIS C SCREENING Completed 05/09/2025 , 08/22/2016, 07/08/2016 DEPRESSION SCREENING Completed 05/23/2025, 06/05/20 22 HPV VACCINE Aged Out No longer eligi ble based on patient's age to complete this topic MENINGOCOCCAL (Group B) VACCINE SHARED DECISION-MAKING Aged Out No longer eligible based on patient's age to complete this topic Medical Devices Implanted Type Area Access Coordinator Device Identifier Shelf Expiration Date Model / Serial / Lot Icast Implanted:Qty: 1 on 03/01/2025 by Garrick Weldon MD at [facility] Right: Leg [employer] 05/06/2027 [id number] / [id number] / Graft Cv 8mm 30cm [facility] [address] Polystr 2 Vlr - [id number] Implanted:Qty: 1 on 04/21/2025 by Garrick Weldon MD at [facility] Left: Groin Maquet 09/29/2029 [id number] / [id number] / [id number] Zilver Ptx Drug-Eluting Peripheral Stent Implanted:Qty: 1 on 04/21/2025 by Garrick Weldon MD at [facility] Left: Leg [employer] 08/03/2026 [id number] / [id number] / [id number] Explanted Type Area Access Coordinator Device Identifier Shelf Expiration Date Model / Serial / Lot [employer] Ureteral Stents Explanted:Qty: 2 on 06/10/2019 by Heber Vizcarra MD at [facility] Bilateral: Ureter [employer] Haile 05/02/2022 [id number] / / [id number] Procedures Procedure Name Priority Date/Time Associated Diagnosis Comments VAS ARTERIAL ANKLE ARM INDEX Routine 06/16/2025 2:06 PM CDT PAD (peripheral artery disease) VAS LEFT ARTERIAL DUPLEX LE Routine 06/16/2025 2:06 PM CDT PAD (peripheral artery disease) APHERESIS/TRANSFUSIO N ORDER 05/15/2025 2:20 PM CDT CBC W AUTO DIFFERENTIAL Routine 05/12/2025 3:51 PM CDT PHOSPHORUS BLOOD Routine 05/12/2025 2:18 AM CDT MAGNESIUM BLOOD Routine 05/12/2025 2:18 AM CDT BASIC METABOLIC PANEL (CALCIUM TOTAL) Routine 05/12/2025 2:18 AM CDT CBC W AUTO DIFFERENTIAL Routine 05/12/2025 2:17 AM CDT CBC W AUTO DIFFERENTIAL Routine 05/11/2025 3:33 PM CDT CBC W AUTO DIFFERENTIAL Routine 05/11/2025 3:08 AM CDT PHOSPHORUS BLOOD Routine 05/11/2025 3:08 AM CDT MAGNESIUM BLOOD Routine 05/11/2025 3:08 AM CDT BASIC METABOLIC PANEL (CALCIUM TOTAL) Routine 05/11/2025 3:08 AM CDT GLUCOSE - POINT OF CARE Routine 05/10/2025 4:24 PM CDT CBC W AUTO DIFFERENTIAL Routine 05/10/2025 3:52 PM CDT CBC W AUTO DIFFERENTIAL Routine 05/10/2025 12:28 AM CDT PHOSPHORUS BLOOD Routine 05/10/2025 12:2 8 AM CDT MAGNESIUM BLOOD Routine 05/10/2025 12:28 AM CDT BASIC METABOLIC PANEL (CALCIUM TOTAL) Routine 05/10/2025 12:28 AM CDT CBC W AUTO DIFFERENTIAL Routine 05/09/2025 5:59 PM CDT CBC W AUTO DIFFERENTIAL Routine 05/09/2025 5:09 AM CDT PHOSPHORUS BLOOD Routine 05/09/2025 4:17 AM CDT MAGNESIUM BLOOD Routine 05/09/2025 4:17 AM CDT BASIC METABOLIC PANEL (CALCIUM TOTAL) Routine 05/09/2025 4:17 AM CDT HEPATITIS C AB SCREEN RFLX NAAT QUANT AM Draw 05/09/2025 4:00 AM CDT Sepsis, due to unspecified organism, unspecified whether acute organ dysfunction present (HCC) HIV-1 HIV-2 ANTIBODY + HIV P24 AG PANEL Routine 05/09/2025 4:00 AM CDT Sepsis, due to unspecified organism, unspecified whether acute organ dysfunction present (HCC) CBC W AUTO DIFFERENTIAL Routine 05/08/2025 9:21 PM CDT EKG 12-LEAD Routine 05/08/2025 3:34 AM CDT Atrial fibrillation, unspecified type (HCC) DIFFERENTIAL MANUAL Routine 05/08/2025 3 :34 AM CDT CBC W AUTO DIFFERENTIAL Routine 05/08/2025 3:34 AM CDT PHOSPHORUS BLOOD Routine 05/08/2025 3:34 AM CDT MAGNESIUM BLOOD Routine 05/08/2025 3:34 AM CDT BASIC METABOLIC PANEL (CALCIUM TOTAL) Routine 05/08/2025 3:34 AM CDT DIFFERENTIAL MANUAL Routine 05/07/2025 9 :43 PM CDT CBC W AUTO DIFFERENTIAL Routine 05/07/2025 9:43 PM CDT DIFFERENTIAL MANUAL Routine 05/07/2025 1 2:10 PM CDT CBC W AUTO DIFFERENTIAL Routine 05/07/2025 12:10 PM CDT TRANSFUSE RED BLOOD CELL LEUKOREDUCED UNIT(S) Routine 05/07/2025 7:44 AM CDT VANCOMYCIN LEVEL TROUGH Timed 05/07/2025 7:34 AM CDT EKG 12-LEAD Routine 05/07/2025 6:30 AM CDT Shock (HCC) DIFFERENTIAL MANUAL Routine 05/07/2025 4 :23 AM CDT CBC W AUTO DIFFERENTIAL Routine 05/07/2025 4:23 AM CDT PHOSPHORUS BLOOD Routine 05/07/2025 4:23 AM CDT MAGNESIUM BLOOD Routine 05/07/2025 4:23 AM CDT BASIC METABOLIC PANEL (CALCIUM TOTAL) Routine 05/07/2025 4:23 AM CDT GLUCOSE - POINT OF CARE Routine 05/07/2025 12:26 AM CDT MRSA DNA PCR STAT 05/06/2025 10:25 PM CDT DIFFERENTIAL MANUAL Routine 05/06/2025 5 :56 PM CDT CBC W AUTO DIFFERENTIAL Routine 05/06/2025 5:56 PM CDT GLUCOSE - POINT OF CARE Routine 05/06/2025 5:54 PM CDT EKG 12-LEAD Routine 05/06/2025 12:32 PM CDT PAD (peripheral artery disease) DIFFERENTIAL MANUAL Timed 05/06/2025 1 2:02 PM CDT CBC W AUTO DIFFERENTIAL Timed 05/06/2025 12:02 PM CDT GLUCOSE - POINT OF CARE Routine 05/06/2025 12:01 PM CDT TRANSFUSE RED BLOOD CELL LEUKOREDUCED UNIT(S) Routine 05/06/2025 9:27 AM CDT DIFFERENTIAL MANUAL Routine 05/06/2025 8 :21 AM CDT [id number] (1,3) (FUNGITELL) Routine 05/06/2025 8:21 AM CDT CBC W AUTO DIFFERENTIAL Routine 05/06/2025 8:21 AM CDT PT-INR [facility] Routine 05/06/2025 5:35 AM CDT TRANSFUSE RED BLOOD CELL LEUKOREDUCED UNIT(S) STAT 05/06/2025 5:20 AM CDT TEG 6 GLOBAL HEMOSTASIS W/ LYSIS STAT 05/06/2025 5:08 AM CDT DIFFERENTIAL MANUAL STAT 05/06/2025 4 :17 AM CDT HGB HCT PANEL STAT 05/06/2025 4:17 AM CDT CBC W AUTO DIFFERENTIAL STAT 05/06/2025 4:17 AM CDT DIFFERENTIAL MANUAL Routine 05/06/2025 3 :22 AM CDT VANCOMYCIN LEVEL RANDOM Timed 05/06/2025 3:22 AM CDT HEMOGLOBIN A1C Routine 05/06/2025 3:22 AM CDT PHOSPHORUS BLOOD Routine 05/06/2025 3:22 AM CDT MAGNESIUM BLOOD Routine 05/06/2025 3:22 AM CDT BASIC METABOLIC PANEL (CALCIUM TOTAL) Routine 05/06/2025 3:22 AM CDT CBC W AUTO DIFFERENTIAL Routine 05/06/2025 3:22 AM CDT FIBRINOGEN ACTIVITY STAT 05/06/2025 3 :22 AM CDT TRANSFUSE RED BLOOD CELL LEUKOREDUCED UNIT(S) STAT 05/06/2025 12:28 AM CDT TRANSFUSE PLATELET PHERESIS UNIT(S) STAT 05/05/2025 10:08 PM CDT TEG 6 GLOBAL HEMOSTASIS W/ LYSIS STAT 05/05/2025 9:21 PM CDT DIFFERENTIAL MANUAL STAT 05/05/2025 8 :00 PM CDT PT-INR [facility] STAT 05/05/2025 8:00 PM CDT PHOSPHORUS BLOOD STAT 05/05/2025 8:00 PM CDT MAGNESIUM BLOOD STAT 05/05/2025 8:00 PM CDT BLOOD GASES ART + COOX PANEL STAT 05/05/2025 8:00 PM CDT CBC W AUTO DIFFERENTIAL STAT 05/05/2025 8:00 PM CDT COMPREHENSIVE METABOLIC PANEL STAT 05/05/2025 8:00 PM CDT LACTIC ACID BLOOD STAT 05/05/2025 8:0 0 PM CDT CULTURE FUNGUS OTHER+FUNGUS SMEAR Routine 05/05/2025 3:02 PM CDT CULTURE WOUND+GRAM STAIN STAT 05/05/2025 3:02 PM CDT CULTURE ANAEROBE Routine 05/05/2025 3:02 PM CDT CULTURE FUNGUS OTHER+FUNGUS SMEAR Routine 05/05/2025 3:02 PM CDT CULTURE WOUND+GRAM STAIN STAT 05/05/2025 3:02 PM CDT CULTURE ANAEROBE Routine 05/05/2025 3:02 PM CDT ENDOTRACHEAL TUBE NOTE Routine 05/05/2025 2:28 PM CDT AZ GEOFFREY SUBQ TISSUE 20 SQ CM/< 05/05/2025 1:31 PM CDT Wound infection CULTURE BLOOD Timed 05/05/2025 12:59 PM CDT PREPARE RBC LEUKOREDUCED UNIT Routine 05/05/2025 12:49 PM CDT PREPARE RBC LEUKOREDUCED UNIT Routine 05/05/2025 12:49 PM CDT PREPARE RBC LEUKOREDUCED UNIT STAT 05/05/2025 12:49 PM CDT PREPARE PLATELET PHERESIS UNIT(S) STAT 05/05/2025 12:49 PM CDT PREPARE RBC LEUKOREDUCED UNIT Routine 05/05/2025 12:49 PM CDT Postoperative shock, unspecified shock type, initial encounter PREPARE RBC LEUKOREDUCED UNIT STAT 05/05/2025 12:49 PM CDT Postoperative shock, unspecified shock type, initial encounter TYPE + SCREEN PANEL STAT 05/05/2025 1 2:49 PM CDT PT-INR [facility] STAT 05/05/2025 12:49 PM CDT COMPREHENSIVE METABOLIC PANEL STAT 05/05/2025 12:49 PM CDT CBC W AUTO DIFFERENTIAL STAT 05/05/2025 12:49 PM CDT CULTURE BLOOD Timed 05/05/2025 12:49 PM CDT APHERESIS/TRANSFUSIO N ORDER 04/25/2025 10:54 AM CDT PT-INR [facility] Routine 04/24/2025 7:21 AM CDT Pseudoaneurysm PHOSPHORUS BLOOD Routine 04/24/2025 7:21 AM CDT Pseudoaneurysm MAGNESIUM BLOOD Routine 04/24/2025 7:21 AM CDT Pseudoaneurysm CBC W/O DIFFERENTIAL Routine 04/24/2025 7:21 AM CDT Pseudoaneurysm BASIC METABOLIC PANEL (CALCIUM TOTAL) Routine 04/24/2025 7:21 AM CDT Pseudoaneurysm PTT [facility] Timed 04/23/2025 5:25 AM CDT PTT [facility] Timed 04/22/2025 9:18 PM CDT Pseudoaneurysm PT-INR [facility] Routine 04/22/2025 9:18 PM CDT Pseudoaneurysm PHOSPHORUS BLOOD Routine 04/22/2025 9:18 PM CDT Pseudoaneurysm MAGNESIUM BLOOD Routine 04/22/2025 9:18 PM CDT Pseudoaneurysm CBC W/O DIFFERENTIAL Routine 04/22/2025 9:18 PM CDT Pseudoaneurysm BASIC METABOLIC PANEL (CALCIUM TOTAL) Routine 04/22/2025 9:18 PM CDT Pseudoaneurysm PTT [facility] Routine 04/22/2025 2:06 PM CDT Pseudoaneurysm CBC W/O DIFFERENTIAL STAT 04/22/2025 10:40 AM CDT PAD (peripheral artery disease) PTT [facility] Routine 04/22/2025 6:58 AM CDT Pseudoaneurysm PTT [facility] Routine 04/22/2025 1:02 AM CDT Pseudoaneurysm TRANSFUSE RED BLOOD CELL LEUKOREDUCED UNIT(S) Routine 04/22/2025 12:08 AM CDT BLOOD GASES ART + COOX PANEL STAT 04/21/2025 9:46 PM CDT History of malignant lymphoma PTT [facility] Routine 04/21/2025 9:46 PM CDT Pseudoaneurysm PT-INR [facility] Routine 04/21/2025 9:46 PM CDT Pseudoaneurysm PHOSPHORUS BLOOD Routine 04/21/2025 9:46 PM CDT Pseudoaneurysm MAGNESIUM BLOOD Routine 04/21/2025 9:46 PM CDT Pseudoaneurysm CBC W/O DIFFERENTIAL Routine 04/21/2025 9:46 PM CDT Pseudoaneurysm BASIC METABOLIC PANEL (CALCIUM TOTAL) Routine 04/21/2025 9:46 PM CDT Pseudoaneurysm PTT [facility] Routine 04/21/2025 3:40 PM CDT PT-INR [facility] Routine 04/21/2025 3:40 PM CDT CBC W AUTO DIFFERENTIAL Routine 04/21/2025 3:40 PM CDT BLOOD GASES ART + COOX PANEL Routine 04/21/2025 3:39 PM CDT Pseudoaneurysm CALCIUM IONIZED WHOLE BLOOD STAT 04/21/2025 3:39 PM CDT Pseudoaneurysm of right femoral artery BLOOD GAS+COOX+LYTES+METAB ARTERIAL POCT Routine 04/21/2025 12:51 PM CDT FL KAROL W ANGIO TEAM Routine 04/21/2025 12:30 PM CDT PAD (peripheral artery disease) TRANSFUSE RED BLOOD CELL LEUKOREDUCED ML(S) DESTINI 04/21/2025 12:18 PM CDT BLOOD GAS+COOX+LYTES+METAB ARTERIAL POCT Routine 04/21/2025 12:06 PM CDT BLOOD GAS+COOX+LYTES+METAB ARTERIAL POCT Routine 04/21/2025 12:06 PM CDT ACT LR - POCT ([facility]) Routine 04/21/2025 12:02 PM CDT ACT LR - POCT ([facility]) Routine 04/21/2025 11:33 AM CDT ACT LR - POCT ([facility]) Routine 04/21/2025 11:15 AM CDT ACT LR - POCT ([facility]) Routine 04/21/2025 10:54 AM CDT BLOOD GAS+COOX+LYTES+METAB ARTERIAL POCT Routine 04/21/2025 9:14 AM CDT BLOOD GAS+COOX+LYTES+METAB ARTERIAL POCT Routine 04/21/2025 9:14 AM CDT ACT LR - POCT ([facility]) Routine 04/21/2025 9:03 AM CDT ARTERIAL LINE NOTE Routine 04/21/2025 8: 38 AM CDT ENDOTRACHEAL TUBE NOTE Routine 04/21/2025 8:24 AM CDT AZ ILIAC REVASC W/STENT ADD-ON 04/21/2025 7:00 AM CDT Pseudoaneurysm of right femoral artery Peripheral artery disease Case Notes KW 5/15 Special Needs PER MD: PT IS TO CONTINUE HIS ASPIRIN, BUT IS TO HOLD HIS ELIQUIS 3 DAYS PRIOR TO SX. C-ARM WITH ANGIO ORDERED AZ TEAEC W/GRAFT SUPERFICIAL FEMORAL ART 04/21/2025 7:00 AM CDT Pseudoaneurysm of right femoral artery Peripheral artery disease Case Notes KW 5/15 Special Needs PER MD: PT IS TO CONTINUE HIS ASPIRIN, BUT IS TO HOLD HIS ELIQUIS 3 DAYS PRIOR TO SX. C-ARM WITH ANGIO ORDERED PREPARE RBC LEUKOREDUCED UNIT Routine 04/21/2025 6:09 AM CDT Actinic keratosis PREPARE RBC LEUKOREDUCED UNIT Routine 04/21/2025 6:09 AM CDT Actinic keratosis PREPARE RBC LEUKOREDUCED UNIT Routine 04/21/2025 6:09 AM CDT TYPE + SCREEN PANEL STAT 04/21/2025 6 :09 AM CDT Pre-op evaluation ECHO COMPLETE W CONTRAST Routine 04/19/2025 11:20 AM CDT LASSITER (dyspnea on exertion) CBC W/O DIFFERENTIAL Routine 04/17/2025 11:51 AM CDT LASSITER (dyspnea on exertion) BASIC METABOLIC PANEL (CALCIUM TOTAL) Routine 04/17/2025 11:51 AM CDT LASSITER (dyspnea on exertion) ENDOSCOPY, COLON, SCREENING Routine 07/20/2023 1:14 PM CDT from Last 3 Months or Most Recently Relevant to Health Maintenance Results * VAS Arterial Ankle Arm Index (06/16/2025 2:06 PM CDT) Anatomical Region Laterality Modality Ankle / Foot, Upper Extremity In travascular Ultrasound 06/16/2025 1:25 AM CDT Narrative 06/16/2025 3:15 PM CDT Procedure Note Kodi Rajput MD - 06/19/2025 Garrick Weldon MD VASCULAR LAB ORDERABLES Ed ited Result - Final * VAS Left Arterial Duplex Le (06/16/2025 2:06 PM CDT) Anatomical Region Laterality Modality Lower Extremity Intravascular Ul trasound 06/16/2025 1:10 PM CDT Narrative Procedure Note Kodi Rajput MD - 06/16/2025 Garrick Weldon MD VASCULAR LAB ORDERABLES Ed ited Result - Final * APHERESIS/TRANSFUSION ORDER (05/15/2025 2:20 PM CDT) Only the most recent of2 resultswithin the time period is included. Narrative 05/15/2025 2:20 PM CDT Ordered by an unspecified provider. Scanned Document NURSING - VITAL SIGNS AND ASSES SMENT Final Result * (ABNORMAL) CBC W AUTO DIFFERENTIAL (05/12/2025 3:51 PM CDT) Only the most recent of21 resultswithin the time period is included. Pathologist [facility] WBC 9.2 4.0 - 10.7 x10E9/L 05/12/2025 4:46 PM CDT [facility] RBC Count 3.57(L) 4.30 - 5.80 x10E12/L 05/12/2025 4:46 [facility] Hemoglobin 10.6(L) 13.3 - 17.5 g/dL 05/12/2025 4:46 PM T [facility] Hematocrit 31.9(L) 38.7 - 51.1 % 05/12/2025 4:46 PM T [facility] MCV 89.4 80.0 - 98.0 fL 05/12/2025 4:46 PM T [facility] MCH 29.7 26.7 - 33.6 pg 05/12/2025 4:46 PM [facility] MCHC 33.2 31.7 - 36.3 g/dL 05/12/2025 4:46 PM [facility] RDW-CV 15.2(H) 11.3 - 14.8 % 05/12/2025 4:46 PM [facility] Platelet Count 223 150 - 420 x10E9/L 05/12/2025 4:46 PM [facility] MPV 8.8 7.8 - 11.4 fL 05/12/2025 4:46 PM [facility] Neutrophil % 72.6 41.0 - 74.0 % 05/12/2025 4:46 PM [facility] Lymphocyte % 10.5(L) 17.0 - 47.0 % 05/12/2025 4:46 PM [facility] Monocyte % 13.1(H) 3.0 - 11.0 % 05/12/2025 4:46 PM [facility] Eosinophil % 2.4 0.0 - 7.0 % 05/12/2025 4:46 PM [facility] Basophil % 0.3 0.0 - 1.6 % 05/12/2025 4:46 PM [facility] Immature Granulocytes % 1.1(H) 0.0 - 1.0 % 05/12/2025 4:46 PM [facility] Neutrophil Absolute 6.70 1.60 - 7.50 x10E9/L 05/12/2025 4:46 PM [facility] Lymphocyte Absolute 0.97(L) 1.00 - 4.40 x10E9/L 05/12/2025 4:46 PM [facility] Monocyte Absolute 1.21(H) 0.15 - 1.00 x10E9/L 05/12/2025 4:46 PM [facility] Eosinophil Absolute 0.22 0.00 - 0.60 x10E9/L 05/12/2025 4:46 PM [facility] Basophil Absolute 0.03 0.00 - 0.13 x10E9/L 05/12/2025 4:46 PM [facility] Blood BLOOD SPECIMEN / Unknown Lab Venipuncture / Unknown 05/12/2025 3:51 PM CDT 05/12/2025 4:31 PM CDT us Tonny Piper MD LAB - HEMATOLOGY ORDERA BLES Final Result [facility] [address] [place] [address], [facility] [phone] * (ABNORMAL) BASIC METABOLIC PANEL (CALCIUM TOTAL) (05/12/2025 2:18 AM CDT) Only the most recent of11 resultswithin the time period is included. BUN 27(H) 7 - 26 mg/dL 05/12/2025 3:25 AM [facility] Creatinine 1.00 0.71 - 1.16 mg/dL 05/12/2025 3:25 AM [facility] Sodium 138 136 - 145 mmol/L 05/12/2025 3:25 AM [facility] Potassium 3.6 3.5 - 4.5 mmol/L 05/12/2025 3:25 AM [facility] Chloride 103 98 - 107 mmol/L 05/12/2025 3:25 AM [facility] CO2 27 22 - 29 mmol/L 05/12/2025 3:25 AM [facility] Glucose 101(H) 70 - 99 mg/dL 05/12/2025 3:25 AM [facility] Calcium 8.2(L) 8.4 - 10.2 mg/dL 05/12/2025 3:25 AM [facility] Anion Gap 8 6 - 16 05/12/2025 3:25 AM [facility] BUN/Creatinine Ratio 27(H) 7 - 23 05/12/2025 3:25 AM [facility] Osmolality Calculated 291 275 - 295 mOsm/kg 05/12/2025 3:25 AM [facility] eGFR by CKD-EPI 78(L) >=90 mL/min/1.7 3 m2 05/12/2025 3:25 AM [facility] Blood BLOOD SPECIMEN / Unknown Lab Venipuncture / Unknown 05/12/2025 2:18 AM CDT 05/12/2025 2:42 AM CDT Narrative [facility] - 05/12/2025 3:25 AM CDT Estimated Glomerular Filtration Rate (eGFR) calculated using the CKD-EPI Creatinine Equation (2020), per the National Kidney Foundation and [place] Society of Nephrology recommendations. us Alisha Jimenez MD LAB - CHEMISTRY ORDERABLES Final Result Performing Organization Address City/[facility] Co de Phone Number [address] [address], [facility] [phone] * (ABNORMAL) PHOSPHORUS BLOOD (05/12/2025 2:18 AM CDT) Only the most recent of11 resultswithin the time period is included. Phosphorus 2.4(L) 2.8 - 5.1 mg/dL 05/12/2025 3:25 AM CDT [facility] Blood BLOOD SPECIMEN / Unknown Lab Venipuncture / Unknown 05/12/2025 2:18 AM CDT 05/12/2025 2:42 AM CDT us Alisha Jimenez MD LAB - CHEMISTRY ORDERABLES Final Result Performing Organization Address [facility] Co de Phone Number [address] [address], [place] [phone] * MAGNESIUM BLOOD (05/12/2025 2:18 AM CDT) Only the most recent of11 resultswithin the time period is included. Magnesium 1.9 1.6 - 2.6 mg/dL 05/12/2025 3:25 AM CDT [facility] Blood BLOOD SPECIMEN / Unknown Lab Venipuncture / Unknown 05/12/2025 2:18 AM CDT 05/12/2025 2:42 AM CDT us Alisha Jimenez MD LAB - CHEMISTRY ORDERABLES Final Result Performing Organization Address City/[facility] Co de Phone Number [address] [address], [facility] [phone] * (ABNORMAL) GLUCOSE - POINT OF CARE (05/10/2025 4:24 PM CDT) Only the most recent of4 resultswithin the time period is included. Glucose WB/POC 114(H) 70 - 99 mg/dL 05/10/2025 4:40 PM CDT [facility] Specimen Type Arterial/C apillary 05/10/2025 4:40 PM CDT [facility] Blood BLOOD SPECIMEN / Unknown 05/10/2025 4:24 PM CDT 05/10/2025 4:40 PM CDT us Honorio Ruiz MD LAB - POINT OF CARE ORDERABL ES Final Result Performing Organization Address [facility] Co de Phone Number [address] [address], [facility] [phone] * HEPATITIS C AB SCREEN RFLX NAAT QUANT (05/09/2025 4:00 AM CDT) [facility] Hepatitis C Antibody Non-react mariusz Non-reac tive 05/09/2025 4:53 AM CDT [facility] Comment:Hepatitis C Antibody screen indicates no serologic evidence of past or current infection with Hepatitis C Virus. Patients with unexplained liver disease who are immunocompromised or suspected of having acute Hepatitis C infection may benefit from Nucleic Acid Test (TAMMI) for Hepatitis C Viral RNA to confirm Hepatitis C status. Blood BLOOD SPECIMEN / Unknown Venipuncture / Unknown 05/09/2025 4:00 AM CDT 05/09/2025 4:02 AM CDT us Tonny Piper MD LAB - CHEMISTRY ORDERAB LES Final Result Performing Organization Address [facility]/ZIP Co de Phone Number [address] [address], [facility] [phone] * HIV-1 HIV-2 ANTIBODY + HIV P24 AG PANEL (05/09/2025 4:00 AM CDT) Pathologist [facility] HIV Antigen/Antibod y 1 & 2 Non-reacti ve Non-react mariusz 05/09/2025 4:53 AM CDT [facility] Comment:No Laboratory eviden ce of HIV infection. Blood BLOOD SPECIMEN / Unknown Venipuncture / Unknown 05/09/2025 4:00 AM CDT 05/09/2025 4:02 AM CDT Tonny Piper MD LAB - CHEMISTRY ORDERAB LES Final Result Performing Organization Address City/[facility]/ZIP Co de Phone Number [facility] [address] [place] [address], [facility] [phone] * EKG 12-Lead (05/08/2025 3:34 AM CDT) Only the most recent of3 resultswithin the time period is included. [facility] Ventricular Rate 68 BPM [facility] Atrial Rate 68 BPM [facility] P-R Interval 236 ms [facility] QRS Duration ms 114 ms [facility] Q-T Interval ms 454 ms [facility] QTC Calculation (Bezet) 482 ms [facility] Calculated P [place] 75 degrees [facility] Calculated R [place] -20 degrees [facility] Calculated T [place] 78 degrees [facility] Interpretation EKG SINUS RHYTHM WITH 1ST DEGREE A-V BLOCK WITH OCCASIONAL and consecutive PREMATURE VENTRICULAR COMPLEXES PROLONGED QT ABNORMAL ECG WHEN COMPARED WITH ECG OF 05/07/2025 6:30:49 VENTRICULAR ECTOPY IS NOW PRESENT Confirmed by TAY NOLAN MD ([id number]) on 05/09/2025 4:18:23 PM [facility] 05/08/2025 3:34 AM CDT 05/09/2025 4:18 PM CDT us Tonny Piper MD ECG ORDERABLES Edited Result - Final Performing Organization Address City/[facility]/ZIP Co de Phone Number [facility] * (ABNORMAL) DIFFERENTIAL MANUAL (05/08/2025 3:34 AM CDT) Only the most recent of10 resultswithin the time period is included. Neutrophil % 91(H) 41 - 74 % 05/08/2025 5:30 AM [facility] Lymphocyte % 3(L) 17 - 47 % 05/08/2025 5:30 AM [facility] Monocyte % 4 3 - 11 % 05/08/2025 5:30 AM [facility] Eosinophil % 2 0 - 7 % 05/08/2025 5:30 AM T [facility] Neutrophil Absolute 7.37 1.60 - 7.50 x10E9/L 05/08/2025 5:30 AM [facility] Lymphocyte Absolute 0.24(L) 1.00 - 4.40 x10E9/L 05/08/2025 5:30 AM T [facility] Monocyte Absolute 0.32 0.15 - 1.00 x10E9/L 05/08/2025 5:30 AM [facility] Eosinophil Absolute 0.16 0.00 - 0.60 x10E9/L 05/08/2025 5:30 AM [facility] RBC Morphology REVIEWED 05/08/2025 5:30 AM [facility] Clayton Cells MODERATE(A) (none) 05/08/2025 5:30 AM [facility] Schistocytes FEW(A) (none) 05/08/2025 5:30 AM [facility] Blood BLOOD SPECIMEN / Unknown Venipuncture / Unknown 05/08/2025 3:34 AM CDT 05/08/2025 3:43 AM CDT Oz Echevarria MD LAB - HEMATOLOGY ORDERABLES Fin al Result [facility] [address] [place] [address], [facility] [phone] * TRANSFUSE RED BLOOD CELL LEUKOREDUCED UNIT(S) (05/07/2025 10:26 AM CDT) Oz Echevarria MD NURSING - BLOOD PROD TRANSFUSIO N Final Result * VANCOMYCIN LEVEL TROUGH (05/07/2025 7:34 AM CDT) Vancomycin Trough 12.6 10.0 - 20.0 ug/mL 05/07/2025 8:36 AM CDT [facility] Blood BLOOD SPECIMEN / Unknown Venipuncture / Unknown 05/07/2025 7:34 AM CDT 05/07/2025 7:44 AM CDT Narrative [facility] - 05/07/2025 8:36 AM CDT See institution protocol. us Alisha Jimenez MD LAB - CHEMISTRY ORDERABLES Final Result [facility] [address] [place] [address], [place] [phone] * (ABNORMAL) MRSA DNA PCR (05/06/2025 10:25 PM CDT) [facility] MRSA DNA by PCR Detected( A) Not detected 05/07/2025 2:59 AM CDT [facility] MICROBIOLOGY Microbiology SPECIMEN FROM NASAL FOSSAE / Unknown Collection / Unknown 05/06/2025 10:25 PM CDT 05/06/2025 10:28 PM CDT Narrative [facility] - 05/07/2025 2:59 AM CDT Methicillin-resistant Staphylococcus aureus (MRSA) DNA is detected (presumed colonized with MRSA). us Oz Echevarria MD LAB - MICROBIOLOGY ORDERABLES F inal Result Performing Organization Address City/[facility]/ZIP Co de Phone Number [facility]CROBIOLOGY [address] [place] [address], [facility] [phone] * TRANSFUSE RED BLOOD CELL LEUKOREDUCED UNIT(S) (05/06/2025 11:24 AM CDT) us Alisha Jimenez MD NURSING - BLOOD PROD TRANSF USION Final Result * KIJE-H-VUZZZH (1,3) (FUNGITELL) (05/06/2025 8:21 AM CDT) [facility] Wknv-n-Emapmz <31 pg/mL 05/08/2025 12:41 PM CDT [facility] ([facility]) Interpretation Wmrj-l-Hakted Negative Negative 05/08/2025 12:41 PM CDT [facility] ([facility]) Comment: INTERPRETIVE INFORMATION: (1,3)-seer-S-ipwutk (Fungitell) Less than 31 pg/mL ................... Negative 31-59 pg/mL .......................... Negative 60-79 pg/mL .......................... Indeterminate Greater than or equal to 80 pg/mL .... Positive The Fungitell test is indicated for presumptive diagnosis of fungal infection and should be used in conjunction with other diagnostic procedures. This test does not detect certain fungal species such as Cryptococcus, which produce very low levels of (1,3)-zcni-T-mvpaeg. This test will not detect the zygomycetes, such as Absidia, Mucor, and Rhizopus, which are not known to produce (1,3)-msqz-X-nltsgh. In addition, the yeast phase of Blastomyces dermatitidis produces little (1,3)-elmu-X-zxymlh and may not be detected by the assay. Performed By: [employer] [address] [place] [address] Oil Field Tester: Alfredo Piña MD, PhD CLIA Number: [id number] Blood BLOOD SPECIMEN / Unknown Venipuncture / Unknown 05/06/2025 8:21 AM CDT 05/06/2025 8:29 AM CDT us Alisha Jimenez MD LAB - CHEMISTRY ORDERABLES Final Result [facility] ([facility]) [address] * TRANSFUSE RED BLOOD CELL LEUKOREDUCED UNIT(S) (05/06/2025 6:49 AM CDT) us Alisha Jimenez MD NURSING - BLOOD PROD TRANSF USION Final Result * (ABNORMAL) PT-INR [facility] (05/06/2025 5:35 AM CDT) Only the most recent of7 resultswithin the time period is included. PT 15.5(H) 12.1 - 14.8 Seconds 05/06/2025 6:04 AM [facility] INR 1.3 See Comment 05/06/2025 6:04 AM [facility] Comment:The suggested therap eutic range for standard coumadin (warfarin) therapy is an INR of 2.0-3.0. For high-risk patients (Mechanical Mitral Valve Prosthesis, etc.), the suggested prophylactic therapeutic range is an INR of 2.5-3.5. Blood BLOOD SPECIMEN / Unknown Venipuncture / Unknown 05/06/2025 5:35 AM CDT 05/06/2025 5:41 AM CDT us Alisha Jimenez MD LAB - COAGULATION ORDERABLE S Final Result [facility] [address] [place] [address], [facility] [phone] * (ABNORMAL) TEG 6 GLOBAL HEMOSTASIS W/ LYSIS (05/06/2025 5:08 AM CDT) Only the most recent of2 resultswithin the time period is included. Pathologist [facility] Citrated Kaolin R (Reaction Time) 6.5 4.6 - 9.1 min 05/06/2025 6:26 AM [facility] Citrated Kaolin LY30 (Lysis) 1.7 0.0 - 2.6 % 05/06/2025 6:26 AM [facility] Citrated Functional Fibrinogen MA (Max Amplitude) 33.3(H) 15.0 - 32.0 mm 05/06/2025 6:26 AM [facility] Comment:CFF MA above normal range. Consistent with elevated fibrinogen contribution to clot strength. Citrated RapidTEG MA (Max Amplitude) 68.6 52.0 - 70.0 mm 05/06/2025 6:26 AM [facility] Blood BLOOD SPECIMEN / Unknown Venipuncture / Unknown 05/06/2025 5:08 AM CDT 05/06/2025 5:27 AM CDT us Alisha Jimenez MD LAB - HEMATOLOGY ORDERABLES Final Result Performing Organization Address City/[facility]/ZIP Co de Phone Number [address] [address], [facility] [phone] * (ABNORMAL) HGB HCT PANEL (05/06/2025 4:17 AM CDT) Hemoglobin 6.5(L) 13.3 - 17.5 g/dL 05/06/2025 4:36 AM CDT [facility] Hematocrit 19.4(L) 38.7 - 51.1 % 05/06/2025 4:36 AM T [facility] Blood BLOOD SPECIMEN / Unknown Venipuncture / Unknown 05/06/2025 4:17 AM CDT 05/06/2025 4:28 AM CDT us Alisha Jimenez MD LAB - HEMATOLOGY ORDERABLES Final Result Performing Organization Address [facility] Co de Phone Number [address] [address], [facility] [phone] * HEMOGLOBIN A1C (05/06/2025 3:22 AM CDT) Hemoglobin A1c 5.0 <=5.6 % 05/06/2025 8:02 AM T [facility] Estimated Average Glucose 97 mg/dL 05/06/2025 8:02 AM T [facility] Comment: HbA1c Interpretation: Normal : < 5.7% Pre-diabetes: 5.7-6.4% Diabetes: Equal to or greater than 6.5% Test results diagnostic of diabetes should be repeated for confirmation. Treatment target values recommended by ADA and other clinical organizations should be used to evaluate metabolic control in patients. Reference: [place] Diabetes Association, Standards of Care in Diabetes -2020 In patients 70 years and older consider HbA1c target range of 7.0-7.5% (Reference: Derrell Martin et al. JAMDA. 2012) The Sebia assay for the measurement of HbA1c is a National Glycohemoglobin Standardization Program (NGSP) certified method. Blood BLOOD SPECIMEN / Unknown Venipuncture / Unknown 05/06/2025 3:22 AM CDT 05/06/2025 5:07 AM CDT us Alisha Jimenez MD LAB - CHEMISTRY ORDERABLES Final Result Performing Organization Address [facility]/ZIP Co de Phone Number [address] [address], [place] [phone] * (ABNORMAL) FIBRINOGEN ACTIVITY (05/06/2025 3:22 AM CDT) Fibrinogen Clauss 459(H) 200 - 400 mg/dL 05/06/2025 3:58 AM CDT [facility] Blood BLOOD SPECIMEN / Unknown Venipuncture / Unknown 05/06/2025 3:22 AM CDT 05/06/2025 3:30 AM CDT us Alisha Jimenez MD LAB - COAGULATION ORDERABLE S Final Result Performing Organization Address [facility] Co de Phone Number [address] [address], [place] [phone] * VANCOMYCIN LEVEL RANDOM (05/06/2025 3:22 AM CDT) Vancomycin Random 17.1 Therapeutic Ranges not established for random specimens ug/mL 05/06/2025 3:53 AM CDT [facility] Blood BLOOD SPECIMEN / Unknown Venipuncture / Unknown 05/06/2025 3:22 AM CDT 05/06/2025 3:28 AM CDT Narrative [facility] - 05/06/2025 3:53 AM CDT See institution protocol. us Alisha Jimenez MD LAB - CHEMISTRY ORDERABLES Final Result Performing Organization Address [facility]/ZIP Co de Phone Number [address] [address], [place] [phone] * TRANSFUSE RED BLOOD CELL LEUKOREDUCED UNIT(S) (05/06/2025 1:52 AM CDT) us Alisha Jimenez MD NURSING - BLOOD PROD TRANSF USION Final Result * TRANSFUSE PLATELET PHERESIS UNIT(S) (05/06/2025 1:52 AM CDT) us Alisha Jimenez MD NURSING - BLOOD PROD TRANSF USION Final Result * (ABNORMAL) COMPREHENSIVE METABOLIC PANEL (05/05/2025 8:00 PM CDT) Only the most recent of2 resultswithin the time period is included. BUN 28(H) 7 - 26 mg/dL 05/05/2025 8:51 PM [facility] Creatinine 1.37(H) 0.71 - 1.16 mg/dL 05/05/2025 8:51 PM [facility] Sodium 139 136 - 145 mmol/L 05/05/2025 8:51 PM [facility] Potassium 3.9 3.5 - 4.5 mmol/L 05/05/2025 8:51 PM [facility] Chloride 107 98 - 107 mmol/L 05/05/2025 8:51 PM [facility] CO2 24 22 - 29 mmol/L 05/05/2025 8:51 PM [facility] Glucose 132(H) 70 - 99 mg/dL 05/05/2025 8:51 PM [facility] Calcium 8.3(L) 8.4 - 10.2 mg/dL 05/05/2025 8:51 PM [facility] Protein Total 4.8(L) 6.0 - 8.3 g/dL 05/05/2025 8:51 PM [facility] Albumin 2.7(L) 3.4 - 5.0 g/dL 05/05/2025 8:51 PM [facility] Bilirubin Total 1.9(H) 0.2 - 1.2 mg/dL 05/05/2025 8:51 PM [facility] Alkaline Phosphatase 70 40 - 150 U/L 05/05/2025 8:51 PM [facility] ALT 10 5 - 55 U/L 05/05/2025 8:51 PM [facility] AST 16 5 - 34 U/L 05/05/2025 8:51 PM CDT [facility] Anion Gap 8 6 - 16 05/05/2025 8:51 PM CDT [facility] BUN/Creatinine Ratio 20 7 - 23 05/05/2025 8:51 PM CDT [facility] Osmolality Calculated 295 275 - 295 mOsm/kg 05/05/2025 8:51 PM CDT [facility] Albumin/Globulin Ratio 1.3 1.1 - 2.3 05/05/2025 8:51 PM CDT [facility] eGFR by CKD-EPI 54(L) >=90 mL/min/1.7 3 m2 05/05/2025 8:51 PM CDT [facility] Blood BLOOD SPECIMEN / Unknown Venipuncture / Unknown 05/05/2025 8:00 PM CDT 05/05/2025 8:04 PM CDT Narrative [facility] - 05/05/2025 8:51 PM CDT Estimated Glomerular Filtration Rate (eGFR) calculated using the CKD-EPI Creatinine Equation (2020), per the National Kidney Foundation and [place] Society [employer] Nephrology recommendations. us Alisha Jimenez MD LAB - CHEMISTRY ORDERABLES Final Result [address] [address], [place] [phone] * LACTIC ACID BLOOD (05/05/2025 8:00 PM CDT) Lactic Acid-Stat 1.3 <=2.0 mmol/L 05/05/2025 8:45 PM CDT [facility] Blood BLOOD SPECIMEN / Unknown Venipuncture / Unknown 05/05/2025 8:00 PM CDT 05/05/2025 8:04 PM CDT us Alisha Jimenez MD LAB - CHEMISTRY ORDERABLES Final Result [address] [address], [place] [phone] * (ABNORMAL) BLOOD GASES ART + COOX PANEL (05/05/2025 8:00 PM [facility]) Only the most recent of3 resultswithin the time period is included. pH Arterial 7.44 7.35 - 7.45 pH 05/05/2025 8:14 PM [facility] pO2 Arterial 175(H) 80 - 100 mmHg 05/05/2025 8:14 PM [facility] pCO2 Arterial 35 35 - 45 mmHg 8:14 PM [facility] HCO3 Arterial 23.8 20.0 - 30.0 mmol/L 05/05/2025 8:14 PM [facility] BE Arterial -0.2 -2.0 - 2.0 mmol/L 05/05/2025 8:14 PM [facility] Oxyhemoglobin Arterial 97.0 % 05/05/2025 8:14 PM [facility] Dexoyhemoglobin (HHB) % <1.0 % 05/05/2025 8:14 PM [facility] Methemoglobin <0.8 0.0 - 2.0 % 05/05/2025 8:14 PM [facility] Carboxyhemoglobin 2.6(H) 0.0 - 2.0 % 2024 8:14 PM [facility] O2 Content Arterial 10.8 Interpret within clinical context ml/dL 05/05/2025 8:14 PM [facility] Hemoglobin by COOX 7.6(L) 12.0 - 17.6 g/dL 05/05/2025 8:14 PM [facility] O2 Saturation Arterial 100 90 - 100 % 05/05/2025 8:14 PM [facility] FI O2 Arterial 24.0 % 05/05/2025 8:14 PM [facility] Blood, arterial ARTERIAL BLOOD SPECIMEN / Unknown Arterial Puncture / Unknown 05/05/2025 8:00 PM T 05/05/2025 8:04 PM [facility] - 05/05/2025 8:14 PM [facility] Carboxyhemoglobin Normal Concentration: Non-smokers: 0-2%; Smokers: 0-9%; Toxic: >20% us Alisha Jimenez MD LAB - BLOOD GASES ORDERABLE S Final Result [facility] [address] [place] [address], [facility] [phone] * CULTURE FUNGUS OTHER+FUNGUS SMEAR (05/05/2025 3:02 PM CDT) Only the most recent of2 resultswithin the time period is included. Culture No fungus isolated TANIYA 05/29/2025 9:50 AM CDT [facility]CRO[facility] Fungus Stain No yeast or hyphae seen 05/29/2025 9:50 AM CDT [facility] Microbiology SPECIMEN FROM WOUND / Unknown Collection / Unknown 05/05/2025 3:02 PM CDT 05/05/2025 4:45 PM CDT Alisha Jimenez MD LAB - MICROBIOLOGY ORDERABL ES Final Result Performing Organization Address City/[facility] Co de Phone Number [facility] [address] [place] [address], [facility] [phone] * (ABNORMAL) CULTURE WOUND+GRAM STAIN (05/05/2025 3:02 PM CDT) Only the most recent of2 resultswithin the time period is included. Culture Rare Pseudomonas aeruginosa(A) TANIYA 05/10/2025 9:45 AM CDT [facility] Culture Rare Staphylococcus aureus(A) TANIYA 05/10/2025 9:45 AM CDT [facility]CRO[facility] Comment:Staphylococcus aureu s methicillin-susceptible (MSSA) detected by penicillin binding protein immunoassay. Gram Stain Heavy Red blood cells 05/10/2025 9:45 AM CDT [facility] MICROBIOLOG[facility] Gram Stain Light Polymorphonuclear cells 05/10/2025 9:45 AM CDT [facility] Gram Stain No organisms seen 025 9:45 AM CDT [facility] Microbiology SPECIMEN FROM WOUND / Unknown Collection / Unknown 05/05/2025 3:02 PM CDT 05/05/2025 4:45 PM CDT Narrative Organism Antibiotic Method Susceptibility Pseudomonas aeruginosa Cefepime TANIYA 32 ug/mL: Resistant Pseudomonas aeruginosa Ceftazidime TANIYA 8 ug/mL: Intermediate Pseudomonas aeruginosa Ciprofloxacin TANIYA <=0.25 ug/mL: Susceptible Pseudomonas aeruginosa Gentamicin TANIYA Resistant Pseudomonas aeruginosa Meropenem TANIYA <=0.25 ug/mL: Susceptible Pseudomonas aeruginosa Tobramycin TANIYA <=1 ug/mL: Susceptible Pseudomonas aeruginosa Piperacillin-tazobactam KB Susceptible Staphylococcus aureus Cefazolin TANIYA Susceptible Staphylococcus aureus Clindamycin TANIYA 0.25 ug/mL: Susceptible Staphylococcus aureus Doxycycline TANIYA <=0.5 ug/mL: Susceptible Staphylococcus aureus Inducible Clindamy paras Resistance TANIYA NEG ug/mL: Neg Staphylococcus aureus Oxacillin TANIYA 0.5 ug/mL: Susceptible Staphylococcus aureus Trimethoprim-sulfa methoxa zole TANIYA <=10 ug/mL: Susceptible Comment: Staphylococcus sensitivity to oxacillin predicts susceptibility for nafcillin, ampicillin/sulbactam, amoxicillin/clavulanate, piperacillin/tazobactam, all cephalosporins (except ceftazidime, ceftazidime/avibactam, ceftolozane/tazobactam), and all carbapenems. Alisha Jimenez MD LAB - MICROBIOLOGY ORDERABL ES Edited Result - Final Performing Organization Address City/[facility]/ZIP Co de Phone Number [facility] [address] [place] [address], [facility] [phone] * CULTURE ANAEROBE (05/05/2025 3:02 PM CDT) Only the most recent of2 resultswithin the time period is included. Culture No anaerobic organisms isolated TANIYA 05/10/2025 1:15 PM CDT [facility]CRO[facility] Microbiology SPECIMEN FROM WOUND / Unknown Collection / Unknown 05/05/2025 3:02 PM CDT 05/05/2025 4:45 PM CDT Alisha Jimenez MD LAB - MICROBIOLOGY ORDERABL ES Final Result Performing Organization Address City/[facility]/ZIP Co de Phone Number [facility]CRO[facility] [address] [place] [address], [facility] [phone] * ETT LINE PERFORMABLE (05/05/2025 2:28 PM CDT) Narrative Annabelle Vivas MD - 05/05/2025 2:28 PM CDT Annabelle Vivas MD 05/05/2025 2:42 PM Endotracheal Tube Placement: Patient Location: OR. Intubation Event Date/Time: 05/05/2025 2:12 PM Procedure: intubation (45076) Procedure Section: Sedation: under general anesthesia. Indications for Airway Management: anesthesia Procedure pretreatments used? No Induction: standard IV Patient Position: sniffing Mask Ventilation: easy. Blade Type: [place] Blade Size: 4 Laryngoscopy View: grade 3 (epiglottis) Intubation Adjuncts: stylet Tube: endotracheal tube Placement: oral Tube type: cuff - inflated Tube Size (MM): 8 Depth of Insertion (CM): 24 Measured From: lips Cuff Inflated With: air Number of Attempts: 1. Placement Verified By: direct visualization, bilateral breath sounds, chest auscultation and CO2 monitor Tube secured with: adhesive tape. Dentition unchanged? Yes Difficult Airway? No. Procedure Start Time: 05/05/2025 2:12 PM. Procedure End Time: 05/05/2025 2:13 PM. Procedure Total Time: 1 minutes. Staff Section Anesthesia Provider: Annabelle Vivas MD, Performed the procedure Provider #1: Mehnaz eYung MD. Mehnaz Yeung MD GENERAL ANESTHESIA ORDERABLES Edited Result - Final * CULTURE BLOOD (05/05/2025 12:59 PM CDT) Only the most recent of2 resultswithin the time period is included. Culture No growth day 5 TANIYA 05/10/2025 5:00 PM CDT [facility] Blood PERIPHERAL BLOOD / Unknown Venipuncture / Unknown 05/05/2025 12:59 PM CDT 05/05/2025 1:19 PM CDT Socorro Mariee MD LAB - MICROBIOLOGY ORDERABLES Fi nal Result [facility] [address] [place] [address], [facility] [phone] * PREPARE (CROSSMATCH) RBC UNIT(S), 1 Units (05/05/2025 12:49 PM CDT) Only the most recent of8 resultswithin the time period is included. Unit Description AS1 LR PRBC IRR [facility] Unit ABO O [facility] Unit Rh POS [facility] Product Number R04 [facility] Unit Donor # [id number] [facility] Unit Status released [facility] Product Code [id number] [facility] Blood Type Barcode 5100 [facility] Expiration Date [id number] S BLOOD BANK LAB Blood Bank BLOOD SPECIMEN / Unknown 05/05/2025 12:49 PM CDT 05/05/2025 1:23 PM CDT Oz Echevarria MD LAB - BLOOD BANK ORDERABLES Fin al Result [facility] [address] [place] [id number], [place] [phone] * PREPARE PLATELET PHERESIS UNIT(S), 1 Units (05/05/2025 12:49 PM CDT) Unit Description LRPLTphere B7 IR [facility] Unit ABO O [facility] Unit Rh NEG [facility] Product Number P31 [facility] Unit Donor # [id number] [facility] Unit Status transfused [facility] Product Code [id number] [facility] Blood Type Barcode 6890 [facility] Expiration Date [id number] S BLOOD BANK LAB Blood Bank BLOOD SPECIMEN / Unknown 05/05/2025 12:49 PM CDT 05/05/2025 1:23 PM CDT Alisha Jimenez MD LAB - BLOOD BANK ORDERABLES Final Result [facility] [address] [place] [phone], [place] [phone] * TYPE + SCREEN PANEL (05/05/2025 12:49 PM CDT) Only the most recent of2 resultswithin the time period is included. [facility] Antibody Screen NEG 1:59 PM CDT [facility] ABO Rh O POS 05/05/2025 1:59 PM CDT [facility] Blood Bank BLOOD SPECIMEN / Unknown Venipuncture / Unknown 05/05/2025 12:49 PM CDT 05/05/2025 1:23 PM CDT us Socorro Mariee MD LAB - BLOOD BANK ORDERABLES Nidia rousseau Result [facility] [address] [place] [address], [facility] [phone] * (ABNORMAL) CBC W/O DIFFERENTIAL (04/24/2025 7:21 AM CDT) Only the most recent of5 resultswithin the time period is included. [facility] WBC 6.2 4.0 - 10.7 x10E9/L 04/24/2025 8:58 AM [facility] RBC Count 2.57(L) 4.30 - 5.80 x10E12/L 04/24/2025 8:58 AM [facility] Hemoglobin 7.9(L) 13.3 - 17.5 g/dL 04/24/2025 8:58 AM [facility] Hematocrit 23.2(L) 38.7 - 51.1 % 04/24/2025 8:58 AM [facility] MCV 90.3 80.0 - 98.0 fL 04/24/2025 8:58 AM [facility] MCH 30.7 26.7 - 33.6 pg 04/24/2025 8:58 AM [facility] MCHC 34.1 31.7 - 36.3 g/dL 04/24/2025 8:58 AM [facility] RDW-CV 15.9(H) 11.3 - 14.8 % 04/24/2025 8:58 AM CDT [facility] Platelet Count 155 150 - 420 x10E9/L 04/24/2025 8:58 AM CDT [facility] MPV 9.1 7.8 - 11.4 fL 04/24/2025 8:58 AM CDT [facility] Blood BLOOD SPECIMEN / Unknown Lab Venipuncture / Unknown 04/24/2025 7:21 AM CDT 04/24/2025 8:33 AM CDT us Garrick Weldon MD LAB - HEMATOLOGY ORDERABLE S Final Result Performing Organization Address [facility]/ZIP Co de Phone Number [address] [address], [facility] [phone] * (ABNORMAL) PTT [facility] (04/23/2025 5:25 AM CDT) Only the most recent of7 resultswithin the time period is included. APTT 83.2(H) 23.0 - 38.4 Seconds 04/23/2025 7:19 AM CDT [facility] Comment:Suggested therapeuti c range for full dose I.V. unfractionated heparin therapy for venous thromboembolism is 71 to 109 seconds. Blood BLOOD SPECIMEN / Unknown Venipuncture / Unknown 04/23/2025 5:25 AM CDT 04/23/2025 6:50 AM CDT Result Olaf Weldon MD LAB - COAGULATION ORDERABL ES Final Result Performing Organization Address City/[facility]/ZIP Co de Phone Number [address] [address], [place] [phone] * TRANSFUSE RED BLOOD CELL LEUKOREDUCED UNIT(S) (04/22/2025 2:44 AM CDT) Result Olaf Weldon MD NURSING - BLOOD PROD TRANS FUSION Final Result * (ABNORMAL) CALCIUM IONIZED WHOLE BLOOD (04/21/2025 3:39 PM CDT) Calcium Ionized 1.19 mmol/L 04/21/2025 3:57 PM CDT [facility] pH 7.35 7.35 - 7.45 pH 04/21/2025 3:57 PM [facility] Ionized Calcium pH Adjusted 1.17(L) 1.19 - 1.34 mmol/L 04/21/2025 3:57 PM [facility] Blood BLOOD SPECIMEN / Unknown Venipuncture / Unknown 04/21/2025 3:39 PM CDT 04/21/2025 3:48 PM CDT Garrick Weldon MD LAB - CHEMISTRY ORDERABLES Final Result [facility] [address] [place] [address], [facility] [phone] * (ABNORMAL) BLOOD GAS+COOX+LYTES+METAB ARTERIAL POCT (04/21/2025 12:51 PM CDT) Only the most recent of5 resultswithin the time period is included. pH Arterial 7.36 7.35 - 7.45 pH 04/21/2025 12:51 PM [facility] pO2 Arterial 186(H) 80 - 100 mmHg 04/21/2025 12:51 PM [facility] pCO2 Arterial 46(H) 35 - 45 mmHg 12:51 PM [facility] HCO3 Arterial 26.0 20.0 - 30.0 mmol/L 04/21/2025 12:51 PM [facility] BE Arterial 0.4 -2.0 - 2.0 mmol/L 04/21/2025 12:51 PM [facility] Oxyhemoglobin Arterial 97.7 % 04/21/2025 12:51 PM [facility] Dexoyhemoglobin (HHB) % 1.0 % 04/21/2025 12:51 PM [facility] Methemoglobin <0.8 0.0 - 2.0 % 04/21/2025 12:51 PM [facility] Carboxyhemoglobin 1.0 0.0 - 2.0 % 2024 12:51 PM [facility] Comment:Carboxyhemoglobin No rmal Concentration: Non-smokers: 0-2%; Smokers: 0- 9%; Toxic: >20% O2 Content Arterial 11.6 Interpret within clinical context ml/dL 04/21/2025 12:51 PM [facility] Hemoglobin by COOX 8.1(L) 12.0 - 17.6 g/dL 04/21/2025 12:51 PM [facility] O2 Saturation Arterial 99 90 - 100 % 04/21/2025 12:51 PM [facility] Sodium Whole Blood 137 135 - 145 mmol/L 04/21/2025 12:51 PM [facility] Potassium Whole Blood 4.5 3.5 - 5.5 mmol/L 04/21/2025 12:51 PM [facility] Chloride WB 108(H) 78 - 107 mmol/L 04/21/2025 12:51 PM [facility] Calcium Ionized 1.19 mmol/L 12:51 PM [facility] Ionized Calcium pH Adjusted 1.17(L) 1.19 - 1.34 mmol/L 04/21/2025 12:51 PM [facility] Anion Gap (AG) Arterial 3(L) 6 - 16 mmol/L 04/21/2025 12:51 PM [facility] Glucose WB 137(H) 70 - 99 mg/dL 04/21/2025 12:51 PM [facility] Lactic Acid Whole Blood 0.9 <=2.0 mmol/L 04/21/2025 12:51 PM [facility] Blood, arterial ARTERIAL BLOOD SPECIMEN / Unknown 04/21/2025 12:51 PM CDT 04/21/2025 12:52 PM CDT us Garrick Weldon MD LAB - POINT OF CARE ORDERA BLES Final Result [address] [address], [facility] [phone] * FL Karol W Angio Team (04/21/2025 12:30 PM CDT) Narrative [facility] - 04/21/2025 12:31 PM CDT Fluoroscopy was used for this exam in the OR. Please see the Operative report. Garrick Weldon MD FLUOROSCOPY ORDERABLES Fin al Result Performing Organization Address [facility] Co de Phone Number [facility] * TRANSFUSE RED BLOOD CELL LEUKOREDUCED ML(S) (04/21/2025 12:23 PM CDT) Shahzad Mims MD NURSING - BLOOD PROD TRANSFUSIO N Final Result * ACT LR - POCT ([facility]) (04/21/2025 12:02 PM CDT) Only the most recent of5 resultswithin the time period is included. 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 Insertion Time: 04/21/2025 7:58 AM Procedure: Arterial Line (69733) Procedure Section Indications: hypotension. Consent: informed consent was obtained for the procedure. Skin Prep: Chloraprep. Orientation: Left. Site: radial. Site Identification: ultrasound guided with sterile sleeve and gel. Sterile Technique: cap, mask, sterile gloves and small sterile fenestrated drape. Gauge: 20. Seldinger Technique Used? Yes Number of Attempts: 1. Procedure Tolerance: tolerated well. Procedure Start Time: 04/21/2025 7:48 AM. Procedure End Time: 04/21/2025 7:58 AM. Procedure Total Time: 10 minutes. Staff Section Anesthesia Provider: Shahzad Mims MD, Performed the procedure Provider #1: Giovanni Torres CAA, Performed the procedure. Shahzad Mims MD GENERAL ANESTHESIA ORDERABLES F inal Result * ETT LINE PERFORMABLE (04/21/2025 8:24 AM CDT) Narrative Giovanni Torres CAA - 04/21/2025 8:24 AM CDT Giovanni Torres CAA 04/21/2025 8:25 AM Endotracheal Tube Placement: Patient Location: OR. Intubation Event Date/Time: 04/21/2025 7:43 AM Procedure: intubation ([id number]) Procedure Section: Sedation: under general anesthesia. Indications for Airway Management: anesthesia Induction: standard IV Patient Position: supine Mask Ventilation: easy. Blade Type: Virginia Blade Size: 4 Laryngoscopy View: grade 1 (full cords) Intubation Adjuncts: cricoid pressure and stylet Tube: endotracheal tube Placement: oral Tube type: cuff - inflated Depth of Insertion (CM): 22 Measured From: lips Cuff Inflated With: air Number of Attempts: 1. Placement Verified By: direct visualization, bilateral breath sounds, chest auscultation and CO2 monitor CXR Findings: ETT in proper place. Tube secured with: adhesive tape. Dentition unchanged? Yes Difficult Airway? No. Procedure Start Time: 04/21/2025 7:43 AM. Staff Section Anesthesia Provider: Shahzad Mims MD Provider #1: Giovanni Torres CAA, Performed the procedure. Result [facility] Shahzad Mims MD GENERAL ANESTHESIA ORDERABLES F inal Result * ECHO COMPLETE W CONTRAST (04/19/2025 11:20 AM CDT) IVSd 2D 1.022 cm [facility] CV FUJ I PACS LVIDd 4.535 cm SSM CV [facility] I PACS LVIDs 3.232 cm SSM CV [facility] I PACS LVOT diam 2.049 cm SSM CV [facility] I PACS LVPWd 1.033 cm SSM CV [facility] I PACS LV biplane EF 68.366 % SSM CV FUJI PACS LV A2C EF 66.881 % SSM CV [facility] I PACS LV A4C EF 71.233 % SSM CV [facility] I PACS LV EDV A2C 174.786 ml SSM CV FU JI PACS LV EDV A4C 168.435 ml SSM CV FU JI PACS LV ESV A2C 57.887 ml SSM CV FU JI PACS LV ESV A4C 48.454 ml SSM CV FU JI PACS LVOT pk grad 4.561 [address] [facility] [address] [facility]OT pk abran 106.781 cm/s SSM CV F UJI PACS LVOT VTI 25.225 cm [facility] [address] [facility] I PACS RV-lyon basal diam 4.565 cm [facility] RVOT pk abran 73.062 cm/s SSM CV F U PACS RVOT VTI 17.772 cm SSM CV [facility] I PACS LA size 5.149 cm SSM CV [facility] I PACS LA vol BP 124.358 ml [facility]SM CV [facility] I PACS RA area 22.95 cm [facility] AV area pk abran 2.453 cm [facility] area cont VTI 2.403 cm [facility] [address] [facility] AR DECEL TIME 2.554 s [facility] [address] [facility] AV PHT 0.741 s [address] [address] [facility] I PACS AV pk abran regurg 375.622 cm/s [facility] AV pk grad 8.225 mmHg SSM CV FU JI PACS AV mn grad 4.693 mmHg SSM CV FU JI PACS AV pk abran 143.396 cm/s SSM CV [facility] I PACS AV VTI 34.583 cm SSM CV [facility] I PACS MV A pk abran 93.233 cm/s SSM CV F UJI PACS MV E pk abran 90.474 cm/s SSM CV F UJI PACS MV E' lateral abran 6.639 cm/s SS M CV FUJI PACS MV mn grad 2.094 mmHg SSM CV FU JI PACS MV VTI 34.289 cm SSM CV FUJ I PACS PV pk abran 70.512 cm/s SSM CV FUJ I PACS PV VTI 16.103 cm SSM CV FUJ I PACS TAPSE 2.757 cm SSM CV FUJ I PACS TR pk abran 293.518 cm/s SSM CV FUJ I PACS IVC Diam Expiration 1.693 cm SSM CV FUJI PACS AV area index 1.044 cm /m SSM CV FUJI PACS LA vol index 0.054 l/m SSM CV FUJI PACS Dimensionless Index 0.729 unitless SSM CV FUJI PACS Myocardial strain charge 2 unitless SSM CV FUJI PACS Anatomical Region Laterality Modality Ultrasound 04/19/2025 10:1 0 AM CDT Narrative 04/19/2025 12:51 PM CDT Summary * The left ventricle is mildly dilated, with normal systolic function and an estimated ejection fraction of 68 % by biplane method of disks. Left ventricular wall motion is grossly normal, however endocardial definition is limited. * The left ventricular mass is normal with concentric remodeling. * The left ventricular diastolic function is consistent with grade II diastolic dysfunction. * Right ventricle is at the upper limits of normal in size with grossly normal systolic function. * The left atrium is severely dilated with a left atrial volume index of 54 ml/m2 by BP MOD. * There is mild mitral valve regurgitation. * There is mild tricuspid valve regurgitation. * The pulmonary artery systolic pressure is mildly elevated, 37 mmHg. Patient Info Name: Xavier Sosa Age: 74 years : 1950 Gender: Male Ht: 76 in Wt: 216 lb BSA: 2.30 m2 HR: 59 bpm BP: 129 / 58 mmHg Heart Rhythm: Sinus Rhythm Exam Date: 04/19/2025 10:10 AM Patient Status: O/P Study Site: [facility] Primary Location: [facility] EStudy Info Technical Quality: Technically Difficult Exam Type: ECHO COMPLETE W CONTRAST Indications R06.09 - LASSITER (dyspnea on exertion) Procedure(s) * An Ultrasound Enhancing Agent (UEA) was utilized to enhance endocardial definition and opacify the left ventricle. * A complete 2D, color Doppler, spectral Doppler and M-Mode transthoracic echocardiogram was performed with an Ultrasound Enhancing Agent (UEA). Contrast/Agitated Saline Contrast / Saline: Definity Amount: 1.00 ml Administered By: Radha Gonzalez Reaction to Contrast: no Staff Referring Physician: Courtney Vallejo Ordering Provider: Courtney Vallejo Attending Physician: Courtney Vallejo Animal Handler: Radha Gonzalez Animal Handler: Sue Baez Left Ventricle The left ventricle is mildly dilated. Left ventricular systolic function is normal with an estimated ejection fraction of 68 % by biplane method of disks. The left ventricular mass is normal with concentric remodeling. Left ventricular segmental wall motion is grossly normal, however endocardial definition is limited. The left ventricular diastolic function is consistent with grade II diastolic dysfunction. Right Ventricle The right ventricle is at the upper limits of normal in size. Right ventricular systolic function is grossly normal. Left Atrium The left atrium is severely dilated with a left atrial volume index of 54 ml/m2 by BP MOD. Right Atrium The right atrium is mildly dilated. Atrial Septum Interatrial septum not well visualized by 2D and color Doppler imaging. Aortic Valve The aortic valve is trileaflet. There is no aortic valve stenosis. There is trace aortic valve regurgitation. Pulmonic Valve The pulmonic valve is grossly normal. There is no pulmonic valve stenosis. There is trace pulmonic regurgitation. Mitral Valve The mitral valve is displaying restricted posterior leaflet motion due to annular calcification. There is no mitral valve stenosis. There is mild mitral valve regurgitation. Tricuspid Valve The tricuspid valve is grossly normal. There is mild tricuspid valve regurgitation. The pulmonary artery systolic pressure is mildly elevated, 37 mmHg. Inferior Vena Cava The inferior vena cava is normal in size (< 2.1 cm). There is > 50% collapse of the IVC upon inspiration with an estimated right atrial pressure of 3 mmHg. Pericardium/Pleural There is no pericardial effusion. Aorta The aortic root at the sinus of Valsalva is normal in size. The ascending aorta is normal in size. Measurements Left Ventricular Outflow Tract Name Value Normal LVOT 2D LVOT Diameter 2.0 cm LVOT Area 3.3 cm2 LVOT Doppler LVOT Peak Velocity 1.1 m/s LVOT Peak Gradient 5 mmHg LVOT Mean Velocity 74.26 cm/s LVOT Mean Gradient 2 mmHg LVOT VTI 25.2 cm LVOT VTI/AV VTI Ratio 0.7 LVOT Stroke Volume 83 ml LVOT Stroke Volume Index 36 ml/m2 35-58 LVOT CO 4.9 l/min LVOT CI 2.1 l/min/m2 Pulmonic Valve Name Value Normal RVOT Doppler RVOT Peak Velocity 0.7 m/s RVOT Peak Gradient 2 mmHg RVOT Mean Gradient 1 mmHg PV Doppler PV Peak Velocity 0.7 m/s PV Peak Gradient 2 mmHg PV Mean Gradient 1 mmHg Mitral Valve Name Value Normal MV Doppler MV Peak Gradient 5 mmHg MV Mean Gradient 2 mmHg MV DI (VTI) 1.36 MV PHT 67 ms MV Area (PHT) 3.29 cm2 4.00-5.00 MV Area (Cont Eq VTI) 2.42 cm2 MV Diastolic Function MV E Peak Velocity 0.9 m/sec MV A Peak Velocity 0.9 m/sec MV E/A 1.0 MV Decel Time (PW) 253 ms MV A Wave Duration 168 ms MV Annular TDI MV Septal e' Velocity 6 cm/s >=8 MV E/e' (Septal) 14 <=8 MV Lateral e' Velocity 7 cm/s >=10 MV E/e' (Lateral) 14 <=8 MV e' Average 6 cm/s MV E/e' (Average) 14 Tricuspid Valve Name Value Normal TV Regurgitation Doppler TR Peak Velocity 2.9 m/s TR Peak Gradient 34 mmHg Estimated PAP/RSVP RA Pressure 3 mmHg <=5 PA Systolic Pressure 37 mmHg <35 RV Systolic Pressure 37 mmHg <36 TV Annular TDI TV Lateral Sheila s' Velocity 13 cm/s 10-19 Venous Name Value Normal IVC/SVC IVC Diameter 1.7 cm <=2.1 Aortic Valve Name Value Normal AV 2D/MM AV Cusp Sep (MM) 1.9 cm AV Doppler AV Peak Velocity 1.43 m/s AV Peak Gradient 8 mmHg AV Mean Gradient 5 mmHg AV VTI 35 cm AV Area (Cont Eq VTI) 2.40 cm2 >=2.00 AV Area (Cont Eq Abran) 2.45 cm2 AV DI (VTI) 0.73 AV DI (Abran) 0.74 AV Regurgitation 2D LVOT Area 3.29 cm2 AV Regurgitation Doppler AR Decel Time 2,554 ms AR PHT 741 ms Ventricles Name Value Normal LV Dimensions 2D/MM IVS Diastolic Thickness (2D) 1.0 cm 0.6-1.0 LVID Diastole (2D) 4.5 cm 4.2-5.8 LVPW Diastolic Thickness (2D) 1.0 cm 0.6-1.0 IVS Systolic Thickness (2D) 1.1 cm LVID Systole (2D) 3.2 cm 2.5-4.0 LVPW Systolic Thickness (2D) 1.3 cm LV Mass (2D Cubed) 138 g 88-224 LV Mass Index (2D Cubed) 60 g/m2 49-115 Relative Wall Thickness (2D) 0.46 <=0.42 LV Fractional Shortening/Ejection Fraction 2D/MM LV Fractional Shortening (2D) 29 % 25-43 LV EF (2D Teicholz) 55 % 52-72 LV Diastolic Volume (4C MOD) 168 ml LV EF (4C MOD) 71 % LV Diastolic Volume (2C MOD) 175 ml LV EF (2C MOD) 67 % LV Diastolic Volume (BP MOD) 172 ml 62-150 LV Diastolic Volume Index (BP MOD) 75 ml/m2 34-74 LV Systolic Volume (BP MOD) 54 ml 21-61 LV Systolic Volume Index (BP MOD) 24 ml/m2 11-31 LV EF (BP MOD) 68 % 52-72 LV Diastolic Length (4C) 9.6 cm LV Systolic Length (4C) 7.4 cm LV Stroke Volume (4C MOD) 120 ml RV Dimensions 2D/MM RV Basal Diastolic Dimension 4.6 cm 2.5-4.1 RV Diastolic Length (4C) 8.4 cm 5.9-8.3 TAPSE 2.8 cm >=1.7 Atria Name Value Normal LA Dimensions LA Dimension (2D) 5.1 cm 3.0-4.1 LA Dimen Index (2D) 2.2 cm/m2 LA Volume (BP MOD) 124 ml LA Volume Index (BP MOD) 54 ml/m2 16-34 RA Dimensions RA Area (4C) 23 cm2 <=18 RA Area (4C) Index 10 cm2/m2 Report Signatures Finalized by Natanael Lilly on 04/19/2025 12:51 PM Procedure Note Natanael Lilly MD - 04/19/2025 Summary * The left ventricle is mildly dilated, with normal systolic functionand an estimated ejection fraction of 68 % by biplane method of disks. Left ventricular wall motion is grossly normal, however endocardial definitionis limited. * The left ventricular mass is normal with concentric remodeling. * The left ventricular diastolic function is consistent with grade II diastolic dysfunction. * Right ventricle is at the upper limits of normal in size withgrossly normal systolic function. * The left atrium is severely dilated with a left atrial volume index of54 ml/m2 by BP MOD. * There is mild mitral valve regurgitation. * There is mild tricuspid valve regurgitation. * The pulmonary artery systolic pressure is mildly elevated, 37 mmHg. Patient Info Name: Xavier Sosa Age: 74 years : 1950 Gender: Male Ht: 76 in Wt: 216 lb BSA: 2.30 m2 HR: 59 bpm BP: 129 / 58 mmHg Heart Rhythm: Sinus Rhythm Exam Date: 04/19/2025 10:10 AM Patient Status: O/P Study Site: [facility] Primary Location: [facility] Info Technical Quality: Technically Difficult Exam Type: ECHO COMPLETE W CONTRAST Indications R06.09 - LASSITER (dyspnea on exertion) Procedure(s) * An Ultrasound Enhancing Agent (UEA) was utilized to enhanceendocardial definition and opacify the left ventricle. * A complete 2D, color Doppler, spectral Doppler and M-Modetransthoracic echocardiogram was performed with an Ultrasound Enhancing Agent (UEA). Contrast/Agitated Saline Contrast / Saline: Definity Amount: 1.00 ml Administered By: Radha Gonzalez Reaction to Contrast: no Staff Referring Physician: Courtney Vallejo Ordering Provider: Courtney Vallejo Attending Physician: Courtney Vallejo Animal Handler: Radha Gonzalez Animal Handler: Sue Baez Left Ventricle The left ventricle is mildly dilated. Left ventricular systolic functionis normal with an estimated ejection fraction of 68 % by biplane method ofdisks. The left ventricular mass is normal with concentric remodeling. Left ventricular segmental wall motion is grossly normal, however endocardial definition is limited. The left ventricular diastolic function isconsistent with grade II diastolic dysfunction. Right Ventricle The right ventricle is at the upper limits of normal in size. Right ventricular systolic function is grossly normal. Left Atrium The left atrium is severely dilated with a left atrial volume index of54 ml/m2 by BP MOD. Right Atrium The right atrium is mildly dilated. Atrial Septum Interatrial septum not well visualized by 2D and color Dopplerimaging. Aortic Valve The aortic valve is trileaflet. There is no aortic valve stenosis. Thereis trace aortic valve regurgitation. Pulmonic Valve The pulmonic valve is grossly normal. There is no pulmonic valvestenosis. There is trace pulmonic regurgitation. Mitral Valve The mitral valve is displaying restricted posterior leaflet motion dueto annular calcification. There is no mitral valve stenosis. There is mildmitral valve regurgitation. Tricuspid Valve The tricuspid valve is grossly normal. There is mild tricuspid valve regurgitation. The pulmonary artery systolic pressure is mildly elevated,37 mmHg. Inferior Vena Cava The inferior vena cava is normal in size (< 2.1 cm). There is > 50%collapse of the IVC upon inspiration with an estimated right atrial pressure of 3mmHg. Pericardium/Pleural There is no pericardial effusion. Aorta The aortic root at the sinus of Valsalva is normal in size. Theascending aorta is normal in size. Measurements Left Ventricular Outflow Tract Name Value Normal LVOT 2D LVOT Diameter 2.0 cm LVOT Area 3.3 cm2 LVOT Doppler LVOT Peak Velocity 1.1 m/s LVOT Peak Gradient 5 mmHg LVOT Mean Velocity 74.26 cm/s LVOT Mean Gradient 2 mmHg LVOT VTI 25.2 cm LVOT VTI/AV VTI Ratio 0.7 LVOT Stroke Volume 83 ml LVOT Stroke Volume Index 36 ml/m2 35-58 LVOT CO 4.9 l/min LVOT CI 2.1 l/min/m2 Pulmonic Valve Name Value Normal RVOT Doppler RVOT Peak Velocity 0.7 m/s RVOT Peak Gradient 2 mmHg RVOT Mean Gradient 1 mmHg PV Doppler PV Peak Velocity 0.7 m/s PV Peak Gradient 2 mmHg PV Mean Gradient 1 mmHg Mitral Valve Name Value Normal MV Doppler MV Peak Gradient 5 mmHg MV Mean Gradient 2 mmHg MV DI (VTI) 1.36 MV PHT 67 ms MV Area (PHT) 3.29 cm2 4.00-5.00 MV Area (Cont Eq VTI) 2.42 cm2 MV Diastolic Function MV E Peak Velocity 0.9 m/sec MV A Peak Velocity 0.9 m/sec MV E/A 1.0 MV Decel Time (PW) 253 ms MV A Wave Duration 168 ms MV Annular TDI MV Septal e' Velocity 6 cm/s >=8 MV E/e' (Septal) 14 <=8 MV Lateral e' Velocity 7 cm/s >=10 MV E/e' (Lateral) 14 <=8 MV e' Average 6 cm/s MV E/e' (Average) 14 Tricuspid Valve Name Value Normal TV Regurgitation Doppler TR Peak Velocity 2.9 m/s TR Peak Gradient 34 mmHg Estimated PAP/RSVP RA Pressure 3 mmHg <=5 PA Systolic Pressure 37 mmHg <35 RV Systolic Pressure 37 mmHg <36 TV Annular TDI TV Lateral Sheila s' Velocity 13 cm/s 10-19 Venous Name Value Normal IVC/SVC IVC Diameter 1.7 cm <=2.1 Aortic Valve Name Value Normal AV 2D/MM AV Cusp Sep (MM) 1.9 cm AV Doppler AV Peak Velocity 1.43 m/s AV Peak Gradient 8 mmHg AV Mean Gradient 5 mmHg AV VTI 35 cm AV Area (Cont Eq VTI) 2.40 cm2 >=2.00 AV Area (Cont Eq Abran) 2.45 cm2 AV DI (VTI) 0.73 AV DI (Abran) 0.74 AV Regurgitation 2D LVOT Area 3.29 cm2 AV Regurgitation Doppler AR Decel Time 2,554 ms AR PHT 741 ms Ventricles Name Value Normal LV Dimensions 2D/MM IVS Diastolic Thickness (2D) 1.0 cm 0.6-1.0 LVID Diastole (2D) 4.5 cm 4.2-5.8 LVPW Diastolic Thickness (2D) 1.0 cm 0.6-1.0 IVS Systolic Thickness (2D) 1.1 cm LVID Systole (2D) 3.2 cm 2.5-4.0 LVPW Systolic Thickness (2D) 1.3 cm LV Mass (2D Cubed) 138 g 88-224 LV Mass Index (2D Cubed) 60 g/m2 49-115 Relative Wall Thickness (2D) 0.46 <=0.42 LV Fractional Shortening/Ejection Fraction 2D/MM LV Fractional Shortening (2D) 29 % 25-43 LV EF (2D Teicholz) 55 % 52-72 LV Diastolic Volume (4C MOD) 168 ml LV EF (4C MOD) 71 % LV Diastolic Volume (2C MOD) 175 ml LV EF (2C MOD) 67 % LV Diastolic Volume (BP MOD) 172 ml 62-150 LV Diastolic Volume Index (BP MOD) 75 ml/m2 34-74 LV Systolic Volume (BP MOD) 54 ml 21-61 LV Systolic Volume Index (BP MOD) 24 ml/m2 11-31 LV EF (BP MOD) 68 % 52-72 LV Diastolic Length (4C) 9.6 cm LV Systolic Length (4C) 7.4 cm LV Stroke Volume (4C MOD) 120 ml RV Dimensions 2D/MM RV Basal Diastolic Dimension 4.6 cm 2.5-4.1 RV Diastolic Length (4C) 8.4 cm 5.9-8.3 TAPSE 2.8 cm >=1.7 Atria Name Value Normal LA Dimensions LA Dimension (2D) 5.1 cm 3.0-4.1 LA Dimen Index (2D) 2.2 cm/m2 LA Volume (BP MOD) 124 ml LA Volume Index (BP MOD) 54 ml/m2 16-34 RA Dimensions RA Area (4C) 23 cm2 <=18 RA Area (4C) Index 10 cm2/m2 Report Signatures Finalized by Natanael Lilly on 04/19/2025 12:51 PM Courtney [facility] Final Result * ENDOSCOPY, COLON, SCREENING (07/20/2023 1:14 PM CDT) Report Endoscopy POC Endoscopy Department Report _ Patient Name: Xavier Sosa Procedure Date: 07/20/2023 1:14 PM Date of : 1950 Classification: Outpatient Gender: Male Ethnicity: Not or Race: White _ Providers: Irene Rojas Referring MD: Procedure: Colonoscopy Indications: High risk colon [...] entire procedure. Procedure Code(s): --- Professional --- 18971, Colonoscopy, flexible; with biopsy, single or multiple Diagnosis Code(s): --- Professional --- Z85.048, Personal history of other malignant neoplasm of rectum, rectosigmoid junction, and anus D12.6, Benign neoplasm of colon, unspecified CPT copyright 2021 [employer]. All rights reserved. The codes documented in this report are preliminary and upon sports analyst review may be revised to meet current compliance requirements. 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 Expl anation Adv Directive/Living Will/POA 06/04/2018 7:40 AM Advance Directives and Livin g Will 04/04/2015 12:00 AM Advance Directives and Livin g Will 01/24/2015 12:00 AM * Full Code (Latest Code Status on File) Date Activated Date Inactivated Comments 05/05/2025 7:11 PM 05/13/2025 12:00 AM * Full Code Date Activated Date Inactivated Comments 04/21/2025 3:06 PM 04/24/2025 12:50 PM * Full Code Date Activated Date Inactivated Comments 02/17/2025 2:41 AM 03/02/2025 2:52 PM * Full Code Date Activated Date Inactivated Comments 01/04/2025 5:02 PM 01/05/2025 2:43 AM * Full Code Date Activated Date Inactivated Comments 06/10/2019 6:22 PM 06/15/2019 7:[address] 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
--- OUTSIDE RECORDS SUMMARY | 2025-07-18 11:59 | XMS_ITS | Encounter Summary ---
Author Organization [facility] Address [address] [facility] [place] [address] Care Team Providers Care Spreader Name Role Phone Billy Jalloh MD Primary Care Provider Jamie Arboleda MD Unavailable Ruben Park MD Unavailable Yoni Young CD Unavailable Vadim Xiong MD Unavailable [phone] Encounter Details Date Type Department Care Team (Latest Contact Info) Description 07/28/2016 Lab Requisition [facility] Cytogenetics [address] [place] [address] Nicolas Arevalo MD [address] [place] [address] Waldenstrom macroglobulinemia (HCC) Social History Tobacco Use Types Packs/Day Years Used Date Smoking Tobacco: Never Assessed Sex and Gender Information Value Date Recorded Sex Assigned at Male 09/26/2021 11:03 AM CDT Legal Sex Male 5:14 PM CUSTOMER COUNTER REPRESENTATIVE Gender Identity Male 09/26/2021 11:04 AM CDT Sexual Orientation Straight 09/26/2021 11 :04 AM CDT documented as of this encounter Plan of Treatment Upcoming Encounters Date Type Department Care Team (Late st Contact Info) Description 08/08/2025 10:45 AM CDT Office Visit [facility] - General Surgery [address] [place] [address], [place] [address] Irene Rojas MD [address] [place] [address] [address] [place] [address] 09/14/2025 11:00 AM CDT [facility] [address] [place] [address], [place] [address] Jamie Arboleda MD [address] [place] [address] 2L DIV OF PULMONARY/[place] [address] 10/02/2025 11:00 AM CUSTOMER COUNTER REPRESENTATIVE Office Visit [facility] - Dermatology [address] [place] [address], [place] [address] Rosie Quigley MD [address] [place] [address] [address] [place] [address] 12/19/2025 10:00 AM CUSTOMER COUNTER REPRESENTATIVE Appointment [facility] VASCULAR US [address] [place] [address] Garrick Weldon MD [address] [place] [address] [address] [place] [address] 12/19/2025 11:00 AM CUSTOMER COUNTER REPRESENTATIVE Appointment [facility] VASCULAR US [address] [place] [address] Garrick Weldon MD [address] [place] [address] [address] [place] [address] 12/26/2025 2:15 PM CUSTOMER COUNTER REPRESENTATIVE Office Visit [facility] - Vascular Surgery [address] [place] [address], [place] [address] Garrick Weldon MD [address] [place] [address] 2[address] [place] [address] 01/04/2026 11:00 AM CUSTOMER COUNTER REPRESENTATIVE Office Visit [facility] - Cardiology [address] [facility], [place] [place] [address] Clifford Nolan MD [address] [facility], [facility] [address] [place] [address] documented as of this encounter Procedures Procedure Name Priority Date/Time Associated Diagnosis Comments CYTOGENETICS CANCER PANEL Routine 07/28/2016 10:00 AM CDT documented in this encounter Results * CYTOGENETICS CANCER PANEL (07/28/2016 10:00 AM CDT) Indication for Study Waldenstrom Macroglobulinemia 6 1:21 PM CDT [facility] Results Cytogenetics Analysis and count of 20 cells (8 cells karyotyped, GTL-banding) from 24-hour unstimulated and 72-hour Interleukin stimulated bone marrow cultures showed the following chromosome pattern: 46,XY[20] 6 1:21 PM CDT [facility] Interpretation Male chromosome analysis showing 46,XY with no evidence for any clonal structural or numerical abnormality in all cells examined at 400 average band resolution. 6 1:21 PM T [facility] at 1321 CDT Historical Cytogenomic Report [id number] on 03/22/2015 Results Analysis and count of 20 cells (7 cells karyotyped, GTL-banding) from 72-hour Interleukin stimulated bone marrow cultures showed the following chromosome pattern: 46,XY[20] Interpretation Male chromosome analysis showing 46,XY with no evidence for any clonal structural or numerical abnormality in all cells examined at 400 average band resolution. at 0724 [id number] from 01/08/2015 Results Analysis of 200 interphase [...] average band resolution. 6 1:21 PM CDT [facility] Client Information [facility] - [id number] [facility] lab numbers: [id number] ; [id number] 6 1:21 PM CDT [facility] Other BONE MARROW SPECIMEN / Unknown 07/28/2016 10:00 AM CDT 07/28/2016 1:24 PM CDT us Nicolas Arevalo MD LAB - PATHOLOGY/CYTOLOGY ORDERA BLES Final Result [facility] [address] [place] [address] documented in this encounter Visit Diagnoses Diagnosis Waldenstrom macroglobulinemia (HCC) Macroglobulinemia documented in this encounter Additional Health Concerns Infection Onset Date Last Indicated Resolved Time MRSA 05/06/2025 05/06/2025 05/08/2025 7:16 AM CDT MRSA Hx 05/06/2025 05/08/2025 documented as of this encounter Care Teams Spreader Relationship Specialty Start Date End Date Billy Jalloh MD [address] [place] [address] PCP - General 07/08/16 Jamie Arboleda MD [address] [place] [address] Pulmonary Disease 07/08/18 Ruben Park MD [address] [place] [address] Hematology and Oncology 07/08/18 Yoni Young, SHERRILL [address] [place] [address] Cardiology 07/08/18 Vadim Xiong MD [address] [place] [address] Gastroenterology 12/02/18 documented as of this encounter
--- OUTSIDE RECORDS SUMMARY | 2025-07-18 11:59 | XMS_ITS | Clinical Summary ---
Author Organization [facility] Address [address] [place] [address] Phone Care Team Providers Care Hospital Education Coordinator Name Role Phone Billy Jalloh MD Primary Care Provider [phone] Ricardo Hui DO Unavailable [phone] Allergies Active Allergy Reactions Criticality Noted [...] Lnp-s, Pf, 3 0 Mcg/0.3 Ml Dose (mobileo) 01/22/2021 Hepatitis B Vaccine 03/30/2018,11/05/2017,2016 Influenza, High-dose, [...] on file Legal Sex Male 11:37 AM VASCULAR SURGERY PHYSICIAN Gender Identity Not on file Sexual Orientation [...] 10:32 AM CDT Height 193 cm (6' 4) 06/07/2024 10:32 AM CDT Body Mass Index 27.16 06/07/2024 10:32 AM CDT Plan of Treatment Health Maintenance Due Date Last Done Comments Hepatitis C Virus (HCV) Screening 1950 Cologuard 1994 Immunochemical Fecal Occult Blood 1994 Pneumococcal Immunization (50+ years) (2 of 2 - PPSV23, PCV20, or PCV21) 05/25/2018 03/30/2018, 01/28/2018, 11/05/2017, Additional history exists SARS-COV-2 Immunization ( season) 2024 09/03/2022, 03/03/2022, 08/09/2021, Additional history exists Influenza Immunization (#1) 07/31/202508/30, 09/03/2022, 08/04/2021, Additional history exists Td Immunization Every 10 Years (Adults With 1 Tdap) 01/29/2028 01/28/2018, 11/05/2017, 09/04/2017 Colonoscopy 05/20/2029 05/20/2019 Colorectal Cancer Screening 05/20/2029 DTaP/Tdap/Td Immunization Discontinued 2017, 01/28/2018, 11/05/2017, Additional [...] Syncytial Virus (RSV) Immunization (Adult) Completed 10/05/2023 Human Papillomavirus (HPV) Immunization Aged Out No longer eligible based on patient's age to complete this topic Rotavirus Immunization Aged Out No lo nger eligible based on patient's age to complete this topic Insurance MEDICARE [facility] [place] [address] Advance Directives * Full Code (Latest Code Status on File) Date Activated Date Inactivated Comments 06/17/2021 11:28 AM per 06/10/21 Davis Hui office visit note. Care Teams Hospital Education Coordinator Relationship Specialty Start Date End Date Billy Jalloh MD [address] [facility] [address] [place] [address] PCP - General Internal Medicine 01/27/19 Ricardo Hui DO [address] [facility] [address] [place] [address] Consulting Physician Oncology 02/15/19
--- OUTSIDE RECORDS SUMMARY | 2025-07-18 11:59 | XMS_ITS ---
Author Organization [facility] Address [address] [place] [address] Phone Care Team Providers Care Chief Operator Synthesis Name Role Phone Billy Jalloh MD Primary Care Provider [phone] Phoenix Huiin D DO Unavailable [phone] Active Problems Problem Noted Date Diagnosed [...]
--- OUTSIDE RECORDS SUMMARY | 2025-07-18 11:59 | XMS_ITS | Encounter Summary ---
Author Organization [facility] Address [address] [facility] [place] [address] Care Team Providers Care Meat Stock Clerk Name Role Phone Billy Jalloh MD Primary Care Provider Jamie Arboleda MD Unavailable Ruben Park MD Unavailable [phone] Yoni Young CD Unavailable Vadim Xiong MD Unavailable [phone] Reason for Visit * Reason Onset Date Comments Surgical Followup 07/21/2019 pt's home [facility] th nurse call and wanted to let someone konw that he still has one suture left in the rectal area - does that need to be removed Encounter Details Date Type Department Care Team (Late st Contact Info) Description 07/21/2019 Telephone [facility] [address] [place] [address] Dominic Buitrago MD [address] [place] [address] Surgical Followup (pt's home health nurse call [...] AM CDT Legal Sex Male 5:14 PM SERVICE WRITER ADVISOR Gender Identity Male 09/26/2021 11:04 AM CDT Sexual Orientation Straight 09/26/2021 11 :04 AM CDT documented as of this encounter Functional Status * Is person deaf or have serious hearing difficulty? Answer Date of Assessment Author No 06/11/2019 10:15 PM CDT Truman, As mirna Baird RN * Is person blind or have serious difficulty seeing? Answer Date of Assessment Author No 06/11/2019 10:15 PM CDT Olga Laughlin RN * Does person have serious difficulty walking/climbing stairs? Answer Date of Assessment Author No 06/11/2019 10:15 PM CDT Olga Laughlin RN * Does person have difficulty dressing/bathing? Answer Date of Assessment Author No 06/11/2019 10:15 PM CDT Truman, Olga Baird RN * Does person have difficulty doing errands alone? Answer Date of Assessment Author No 06/11/2019 10:15 PM CDT Olga Laughlin RN documented as of this encounter Mental Status * Does person have difficulty concentrating/remembering/making decisions? Answer Entry Date Author No 06/11/2019 10:15 PM Olga Maik RN documented in this encounter Miscellaneous Notes * Telephone Encounter [...] Visit [facility] - General Surgery [address] [place] [address], [place] [address] Irene Rojas MD [address] [place] [address] [address] [place] [address] 09/14/2025 11:00 AM CDT Office Visit [facility] - Pulmonology [address] [place] [address], [place] [address] Jamie Arboleda MD [address] [place] [address] 2[address] DIV OF PULMONARY/[place] [address] 10/02/2025 11:00 AM SERVICE WRITER ADVISOR Office Visit [facility] - Dermatology [address] [place] [address], [place] [address] Rosie Quigley MD [address] [place] [address] [address] [place] [address] 12/19/2025 10:00 AM SERVICE WRITER ADVISOR Appointment [facility] [place] [address] Garrick Weldon MD [address] [place] [address] [address] [place] [address] 12/19/2025 11:00 AM SERVICE WRITER ADVISOR Appointment [facility] [place] [address] Garrick Weldon MD [address] [place] [address] [address] [place] [address] 12/26/2025 2:15 PM SERVICE WRITER ADVISOR Office Visit [facility] - Vascular Surgery [address] [place] [address], [facility] [place] [address] Garrick Weldon MD [address] [place] [address] [address] [place] [address] 01/04/2026 11:00 AM SERVICE WRITER ADVISOR Office Visit [facility] - Cardiology [address] [facility], [facility] [address] [place] [address] Clifford Nolan MD [address] [facility], [facility] [address] [place] [address] documented as of this encounter Visit Diagnoses Not on filedocumented in this encounter Additional Health Concerns Infection Onset Date Last Indicated Resolved Time MRSA 05/06/2025 05/06/2025 05/08/2025 7:16 AM CDT MRSA Hx 05/06/2025 05/08/2025 documented as of this encounter Care Teams Meat Stock Clerk Relationship Specialty Start Date End Date Billy Jalloh MD [facility] [address] [address] PCP - General 07/08/16 Jamie Arboleda MD [address] [place] [address] Pulmonary Disease 07/08/18 Ruben Park MD [address] [place] [address] Hematology and Oncology 07/08/18 Yoni Young, SHERRILL [address] [place] [address] Cardiology 07/08/18 Vadim Xiong MD [address] [place] [address] Gastroenterology 12/02/18 documented as of this encounter
--- OUTSIDE RECORDS SUMMARY | 2025-07-18 11:59 | XMS_ITS | Encounter Summary ---
Author Organization [facility] Address [address] [facility] [place] [address] Care Team Providers Care Cd Mixer Helper Name Role Phone Billy Jalloh MD Primary Care Provider Jamie Arboleda MD Unavailable Ruben Park MD Unavailable Yoni Young CD Unavailable [phone] Vadim Xiong MD Unavailable [phone] Encounter Details Date Type Department Care Team (Late st Contact Info) Description 11/07/2024 Telephone [facility] - Pulmonology [address] [place] [address], [place] [id number] Jamie Arboleda MD [address] [place] [address] DIV OF PULMONARY/[place] [address] Social History Tobacco Use Types Packs/Day Years [...] AM CDT Legal Sex Male 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 Answer Date of Assessment Author No 07/20/2023 1:59 PM CDT Shay Trejo RN * Is person blind or have serious difficulty seeing? Answer Date of Assessment Author No 07/20/2023 1:59 PM CDT hSay Trejo RN * Does person have serious difficulty walking/climbing stairs? Answer Date of Assessment Author No 07/20/2023 1:59 PM CDT Shay Trejo RN * Does person have difficulty dressing/bathing? Answer Date of Assessment Author No 07/20/2023 1:59 PM CDT Shay Trejo RN * Does person have difficulty doing errands alone? Answer Date of Assessment Author No 07/20/2023 1:59 PM CDT Shay Trejo RN documented as of this encounter Mental Status * Does person have difficulty concentrating/remembering/making decisions? Answer Entry Date Author No 07/20/2023 1:59 PM CDT Shay Trejo RN documented in this encounter Miscellaneous Notes [...] to try next. Patient Call Back Number: [phone] RVISOR LATHING documented in this encounter Plan of Treatment Upcoming Encounters Date Type Department Care Team (Late st Contact Info) Description 08/08/2025 10:45 AM CDT Office Visit [facility] - General Surgery [address] [place] [address], [place] [address] Irene Rojas MD [address] [place] [address] [address] [place] [phone] 09/14/2025 11:00 AM CDT Office Visit [facility] - Pulmonology [address] [place] [address], [place] [address] Jamie Arboleda MD [address] [place] [address] 2L DIV OF PULMONARY/[place] [address] 10/02/2025 11:00 AM SUPERVISOR LATHING Office Visit [facility] - Dermatology [address] [place] [address], [place] [address] Rosie Quigley MD [address] [place] [address] [address] [place] [address] 12/19/2025 10:00 AM SUPERVISOR LATHING Appointment [facility] VASCULAR US [address] [place] [address] Garrick Weldon MD [facility] [facility] 2L [place] [address] 12/19/2025 11:00 AM SUPERVISOR LATHING Appointment [facility]ASCULAR US [address] [place] [address] Garrick Weldon MD [address] [place] [address] 2L [place] [address] 12/26/2025 2:15 PM SUPERVISOR LATHING Office Visit [facility] - Vascular Surgery [address] [place] [address], [place] [address] Garrick Weldon MD [facility] S [facility] 2L [place] [address] 01/04/2026 11:00 AM SUPERVISOR LATHING Office Visit [facility] - Cardiology [address] [facility] [address] [place] [phone] Clifford Nolan MD [address] [facility], [facility] [address] [place] [address] documented as of this encounter Visit Diagnoses Not on filedocumented in this encounter Additional Health Concerns Infection Onset Date Last Indicated Resolved Time MRSA 05/06/2025 05/06/2025 05/08/2025 7:16 AM CDT MRSA Hx 05/06/2025 05/08/2025 documented as of this encounter Care Teams Cd Mixer Helper Relationship Specialty Start Date End Date Billy Jalloh MD [facility] [address] [address] PCP - General 07/08/16 Jamie Arboleda MD [address] [address] Pulmonary Disease 07/08/18 Ruben Park MD [address] [address] Hematology and Oncology 07/08/18 Yoni Young, CD [address] [address] Cardiology 07/08/18 Vadim Xiong MD [address] [place] [address] Gastroenterology 12/02/18 documented as of this encounter
--- OUTSIDE RECORDS SUMMARY | 2025-07-18 11:59 | XMS_ITS ---
Author Organization [facility] Address [address] [facility] [place] [address] Care Team Providers Care Consumer Safety Inspector Name Role Phone Billy Jalloh MD Primary Care Provider Jamie Arboleda MD Unavailable Ruben Park MD Unavailable Yoni Young CD Unavailable [phone] Vadim Xiong MD Unavailable [phone] Active Problems Problem Noted Date Diagnosed Date Degenerative arthritis of lumbar spine 5 Shock 05/05/2025 Sepsis 05/05/2025 Wound infection 05/05/2025 Acute on chronic blood loss anemia 05/05/2025 VICTOR HUGO (acute kidney injury) 05/05/2025 Pseudoaneurysm 04/10/2025 Pseudoaneurysm of right femoral artery 5 PAD (peripheral artery disease) 02/28/2025 Assessment & [...] 153/72 MAP 102 supine 0924A - [place] [address] MAP 97 sitting 0928A - BP 85/61 [...] 153/72 MAP 102 supine 0924A [place] [address] MAP 97 sitting 0928A - BP 85/61 [...] neuropathy Plan Orthostatic BP Fall precautsinus Follows [facility] cards outpatient EKG rhythm with first-degree AV block [...] Assessment & Plan (03/01/2025 3:44 PM CDT): -2/ ground level fall 01/24/25 -OSH imaging revealed subcapital fracture of the left femoral neck repair 01/27/2025 Assessment & Plan (02/28/2025 7:39 AM CDT): -/ ground level fall 01/24/25 -OSH imaging revealed [...] wound care 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. -I have involved Hematology for IVIG as per 's request-pending recs -IGG level is low 553, normal IGM - S/P IVIG on 02/23 Assessment & Plan (02/28/2025 4:43 PM CDT): -S/p bone marrow transplant 2015 -Follows with Heme/onc at [facility] -Receives IVIG q8 week infusion -Per , last infusion was scheduled on 02/09, but missed as Pt was in rehab -next IgG infusion was rescheduled to (02/23) at [facility]. -I have involved Hematology for IVIG as per 's request-pending recs -IGG level is low 553, normal IGM - S/P IVIG on 02/23 Assessment & Plan (02/18/2025 2:08 PM CDT): -S/p bone marrow transplant 2015 -Follows with Heme/onc at [facility] -Receives IVIG q8 week infusion -Per , last infusion was scheduled on 02/09, but missed as Pt was in rehab -next IgG infusion was rescheduled to (02/23) at [facility]. Assessment & Plan (02/17/2025 4:41 PM CDT): -S/p bone marrow transplant 2016 -Follows with Heme/onc at [facility] -Receives IVIG q8 week infusion -Per , last infusion was scheduled on 02/09, but missed as Pt was in rehab -next IgG infusion was rescheduled to (02/23) at [facility]. Assessment & Plan (02/17/2025 4:53 AM CDT): S/p bone marrow transplant 2016 IgG q8 week infusion per heme/onc [facility] reports significant hypotension s/p infusion but reports BP recovers Continue monitor Centrilobular emphysema 08/28/2016 Overview (08/26/2021): Documented in medical record Rash and other nonspecific skin eruption 016 A-fib 11/16/2015 Assessment & Plan (03/01/2025 3:44 PM CDT): -[id number] 4 - vascular disease, HTN, age -holding home eliquis for now -Resume flecainide and metoprolol -Continue telemetry monitoring Assessment & Plan (02/28/2025 7:39 AM CDT): -[id number] 4 - vascular disease, HTN, age -Resume home eliquis -Resume flecainide and metoprolol -Continue telemetry monitoring Assessment & Plan (02/18/2025 2:10 PM CDT): -WVNIR0PGXC 4 - vascular disease, HTN, age -Resume home eliquis -Resume flecainide and metoprolol -Continue telemetry monitoring Assessment & Plan (02/17/2025 4:41 PM CDT): -PZVGE0GLZE 4 - vascular disease, HTN, age -Resume home eliquis, flecainide and metoprolol -Continue telemetry monitoring Assessment & Plan (02/17/2025 4:53 AM CDT): Resume home Eliquis,flecainide, metoprolol CTM 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 Other Current Plans SUPPORT (IMMUNE GLOBULIN 10%) (IVIG)* Plan Start Date:06/28/2018 Plan Provider:Leona Tay APRN-PRACTICING UROLOGIST Linked Problems Hypogammaglobulinemia, acqui red (HCC) Treatment Medications Current Day (Day 1 , 28 - Planned for 12/12/2021) Next Day (Day 1, 29 - Planned for 02/06/2022) No medications scheduled. No medications schedul ed. No medications scheduled. Past Treatment and Therapy Plans ONCOLOGY TREATMENT Plan Name Start Date Discontinue Date Treatment Medications Discontinue Reason Plan Provider Cycles LYMPHOMA (RITUXIMAB) MAINT Q3 MONTHS 04/29/2018 06/21/2018 riTUXimab (Rituxan)riTUX imab (Rituxan) infusion Not Tolerated Ruben Park MD 1 of 8 cycles started Lifetime Dose Tracking * Chemical Lifetime Dose Automatic Entry Manual Entr y Air Kerma 443 mGy 0 mGy 443 mGy
--- OUTSIDE RECORDS SUMMARY | 2025-07-18 12:00 | XMS_ITS | Encounter Summary ---
Author Organization [facility] Address [address] [facility] [place] [address] Care Team Providers Care House Mover Helper Name Role Phone Billy Jalloh MD Primary Care Provider Jamie Arboleda MD Unavailable Ruben Park MD Unavailable Yoni Young CD Unavailable Vadim Xiong MD Unavailable [phone] Encounter Details Date Type Department Care Team (Latest Contact Info) Description 03/16/2015 Lab Requisition [facility] - Lab Cytogenetics [address] [place] [address] Ruben Park MD [address] [place] [address] Rd [address] [place] [address] Waldenstrom macroglobulinemia (HCC) Social History Tobacco Use Types Packs/Day Years Used Date Smoking Tobacco: Never Assessed Sex and Gender Information Value Date Recorded Sex Assigned at Male 09/26/2021 11:03 AM CDT Legal Sex Male 5:14 PM SURFACE WATER MANAGER Gender Identity Male 09/26/2021 11:04 AM CDT Sexual Orientation Straight 09/26/2021 11 :04 AM CDT documented as of this encounter Plan of Treatment Upcoming Encounters Date Type Department Care Team (Late st Contact Info) Description 08/08/2025 10:45 AM CDT Office Visit [facility] - General Surgery [address] [place] [address], [place] [address] Irene Rojas MD [address] [place] [address] [address] [place] [address] 09/14/2025 11:00 AM CDT [facility] Pul[facility] [address] [place] [address], [place] [address] Jamie Arboleda MD [address] [place] [address] 2L DIV OF PULMONARY/[place] [address] 10/02/2025 11:00 AM SURFACE WATER MANAGER Office Visit [facility] - Dermatology [address] [place] [address], [place] [address] Rosie Quigley MD [address] [place] [address] [address] [place] [address] 12/19/2025 10:00 AM SURFACE WATER MANAGER Appointment [facility] VASCULAR US [address] [place] [address] Garrick Weldon MD [address] [place] [address] 2L [place] [address] 12/19/2025 11:00 AM SURFACE WATER MANAGER Appointment [facility] US [address] [place] [address] Garrick Weldon MD [address] [place] [address] 2L [place] [address] 12/26/2025 2:15 PM SURFACE WATER MANAGER Office Visit [facility] - Vascular Surgery [address] [place] [address], [place] [address] Garrick Weldon MD [address] [place] [address] 01/04/2026 11:00 AM SURFACE WATER MANAGER Office Visit [facility] - Cardiology [address] [facility] [address] [place] [address] Clifford Nolan MD [address] [facility], [facility] [address] [place] [address] documented as of this encounter Procedures Procedure Name Priority Date/Time Associated Diagnosis Comments CYTOGENETICS CANCER PANEL Routine 03/16/2015 12:00 AM CDT Waldenstrom macroglobulinemia [ICD-9-CM] documented in this encounter Results * CYTOGENETICS CANCER PANEL (03/16/2015 12:00 AM CDT) Indication for Study Waldenstrom's Disease 5 7:24 AM T [facility] Results Cytogenetics Analysis and count of 20 cells (7 cells karyotyped, GTL-banding) from 72-hour Interleukin stimulated bone marrow cultures showed the following chromosome pattern: 46,XY[20] 5 7:24 AM T [facility] Interpretation Male chromosome analysis showing 46,XY with no evidence for any clonal structural or numerical abnormality in all cells examined at 400 average band resolution. 5 7:24 AM T [facility]TO[facility] at [address] [facility] Historical Cytogenomic Report [id number] from 01/08/2015 Results Analysis of 200 interphase cells hybridized to dual breakapart ALK, BCL6, C-MYC, MALT and dual fusion CCND1, BCL2, and MYC specific fluorescent labeled probes* directed onto 2p23, 3q27, 8q24, 18q21 and 11q13, 18q21 and 8q24 showed the following results: nuc ashu(ALKx2)[196/200 ],(BCL6x2)[191/200 ],(CEP8,C-MYC,IGH) x2[177/200],(C-MYC x2)[191/200],(CCND 1,IGH)x2[190/200], (WEIY1v2)[193/200] ,(IGH,BCL2)x2[190/ 200] Normal Note: The remaining percentage [...] average band resolution. 5 7:24 AM CDT [facility] Client Information [facility] - [id number] [facility] Lab Numbers: [id number] FISH, [id number] chrom 5 7:24 AM CDT [facility] Other BONE MARROW SPECIMEN / Unknown 03/16/2015 03/16/2015 2:50 PM CDT us Ruben Park MD LAB - PATHOLOGY/CYTOLOGY O RDERABLES Final Result [facility] [place] [address] documented in this encounter Visit Diagnoses Diagnosis Waldenstrom macroglobulinemia (HCC) Macroglobulinemia documented in this encounter Additional Health Concerns Infection Onset Date Last Indicated Resolved Time MRSA 05/06/2025 05/06/2025 05/08/2025 7:16 AM CDT MRSA Hx 05/06/2025 05/08/2025 documented as of this encounter Care Teams House Mover Helper Relationship Specialty Start Date End Date Billy Jalloh MD [address] [place] [address] PCP - General 07/08/16 Jamie Arboleda MD [address] [place] [address] Pulmonary Disease 07/08/18 Ruben Park MD [address] [place] [address] Hematology and Oncology 07/08/18 Yoni Young, SHERRILL [address] [place] [address] Cardiology 07/08/18 Vadim Xiong MD [address] [place] [address] Gastroenterology 12/02/18 documented as of this encounter
--- OUTSIDE RECORDS SUMMARY | 2025-07-18 12:00 | XMS_ITS | Encounter Summary ---
Author Organization [facility] Address [address] [facility] [place] [address] Care Team Providers Care Hvac Controls Technician Name Role Phone Billy Jalloh MD Primary Care Provider Jamie Arboleda MD Unavailable Ruben Park MD Unavailable Yoni Young Unavailable Vadim Xiong MD Unavailable [phone] Encounter Details Date Type Department Care Team (Late st Contact Info) Description 04/20/2023 Telephone [facility] - Centralized Scheduling [address] [place] [address] Jamie Arboleda MD [address] OF PULMONARY/[place] [address] Social History Tobacco Use Types Packs/Day Years [...] AM CDT Legal Sex Male 5:14 PM CONTINUOUS ABSORPTION PROCESS OPERATOR Gender Identity Male 09/26/2021 11:04 AM CDT Sexual Orientation Straight 09/26/2021 11 :04 AM CDT documented as of this encounter Functional Status * Is person deaf or have serious hearing difficulty? Answer Date of Assessment Author No 06/11/2019 10:15 PM CDT Truman, Olga Baird RN * Is person blind or have serious difficulty seeing? Answer Date of Assessment Author No 06/11/2019 10:15 PM CDT Truman, As mirna Baird RN * Does person have serious difficulty walking/climbing stairs? Answer Date of Assessment Author No 06/11/2019 10:15 PM CDT Truman, Olga Baird RN * Does person have difficulty dressing/bathing? Answer Date of Assessment Author No 06/11/2019 10:15 PM CDT Truman, Olga Baird RN * Does person have difficulty doing errands alone? Answer Date of Assessment Author No 06/11/2019 10:15 PM CDT Truman, Olga Baird RN documented as of this encounter Mental Status * Does person have difficulty concentrating/remembering/making decisions? Answer Entry Date Author No 06/11/2019 10:15 PM CDT Truman, Olga Baird RN documented in this encounter Miscellaneous Notes * Telephone Encounter - Jeffrey Bone - 04/20/2023 11:58 AM CDT Called Leia () no answer. I did let her know that we already sent that order to [facility],if I read this call right she wanted to stop services with [facility]. Advised to call back if information is incorrect. Jeffrey Bone [facility] Pulmonary Critical Care & Sleep Disorders documented in this encounter Plan of Treatment Upcoming Encounters Date Type Department Care Team (Late st Contact Info) Description 08/08/2025 10:45 AM CDT Office Visit [facility] - General Surgery [address] [facility], [place] [address] Irene Rojas MD [address] [place] [address] 09/14/2025 11:00 AM CDT [facility] Pul[facility] [address] [place] [address], [place] [address] Jamie Arboleda MD [address] [facility] 2L DIV OF PULMONARY/[place] [address] 10/02/2025 11:00 AM CONTINUOUS ABSORPTION PROCESS OPERATOR [facility] [facility], [place] [address] Rosie Quigley MD [address] [place] [address] [address] [place] [address] 12/19/2025 10:00 AM CONTINUOUS ABSORPTION PROCESS OPERATOR Appointment [facility] VASCULAR US [address] [place] [address] Garrick Weldon MD [address] [facility] 2L [place] [address] 12/19/2025 11:00 AM CONTINUOUS ABSORPTION PROCESS OPERATOR Appointment [facility] US [address] [place] [address] Garrick Weldon MD [address] [facility] 2L [place] [address] 12/26/2025 2:15 PM CONTINUOUS ABSORPTION PROCESS OPERATOR Office Visit [facility] - Vascular Surgery [facility] [facility], [place] [address] Garrick Weldon MD [address] [facility] 2L [place] [address] 01/04/2026 11:00 AM CONTINUOUS ABSORPTION PROCESS OPERATOR [facility] [address] [place] [place] [address] [place] [address] Clifford Nolan MD [address] [place] [place], [facility] [address] [place] [address] documented as of this encounter Visit Diagnoses Not on filedocumented in this encounter Additional Health Concerns Infection Onset Date Last Indicated Resolved Time MRSA 05/06/2025 05/06/2025 05/08/2025 7:16 AM CDT MRSA Hx 05/06/2025 05/08/2025 documented as of this encounter Care Teams Hvac Controls Technician Relationship Specialty Start Date End Date Billy Jalloh MD [address] [place] [address] PCP - General 07/08/16 Jamie Arboleda MD [address] [place] [address] Pulmonary Disease 07/08/18 Ruben Park MD [address] [place] [address] Hematology and Oncology 07/08/18 Yoni Young, SHERRILL [address] [place] [address] Cardiology 07/08/18 Vadim Xiong MD [address] [place] [address] Gastroenterology 12/02/18 documented as of this encounter
--- OUTSIDE RECORDS SUMMARY | 2025-07-18 12:00 | XMS_ITS | Encounter Summary ---
Author Organization [facility] Health Address [address] [facility] [place] [address] Care Team Providers Care Authorization Specialist Name Role Phone Billy Jalloh MD Primary Care Provider Jamie Arboleda MD Unavailable [phone] Ruben Park MD Unavailable [phone] Yoni Young Unavailable Vadim Xiong MD Unavailable [phone] Reason for Visit * Reason Onset Date Comments Question 07/13/2018 Encounter Details Date Type Department Care Team (Late st Contact Info) Description 07/13/2018 Telephone [facility] [address] [place] [address] Jamie Arboleda MD [address] OF PULMONARY/[place] [address] Question Social History Tobacco Use Types Packs/Day Years Used Date Smoking Tobacco: Former Cigarettes Smokeless Tobacco: Never Alcohol Use Standard Drinks/Week Comments Yes 0.8 (1 standard drink = 0.6 oz p ure alcohol) Sex and Gender Information Value Date Recorded Sex Assigned at Male 09/26/2021 11:03 AM CDT Legal Sex Male 5:14 PM DRUM DRIER Gender Identity Male 09/26/2021 11:04 AM CDT Sexual Orientation Straight 09/26/2021 11 :04 AM CDT documented as of this encounter Functional Status * Is person deaf or have serious hearing difficulty? Answer Date of Assessment Author No 05/31/2018 4:31 PM CDT Reynaldo Hoyt RN * Is person blind or have serious difficulty seeing? Answer Date of Assessment Author No 05/31/2018 4:31 PM CDT Reynaldo Hoyt RN * Does person have serious difficulty walking/climbing stairs? Answer Date of Assessment Author No 05/31/2018 4:31 PM CDT Reynaldo Hoyt RN * Does person have difficulty dressing/bathing? Answer Date of Assessment Author No 05/31/2018 4:31 PM CDT Reynaldo Hoyt RN * Does person have difficulty doing errands alone? Answer Date of Assessment Author No 05/31/2018 4:31 PM SHERRILLT Reynaldo Hoyt RN documented as of this encounter Mental Status * Does person have difficulty concentrating/remembering/making decisions? Answer Entry Date Author No 05/31/2018 4:31 PM SHERRILLT Reynaldo Hoyt RN documented in this encounter Miscellaneous Notes * Telephone Encounter - Ami Davis - 07/13/2018 8:38 AM CDT Patient's Leia called office stated she was directed and expecting a important call today from Dr Arbolead today. Patient's phone number verified. documented in this encounter Plan of Treatment Upcoming Encounters Date Type Department Care Team (Late st Contact Info) Description 08/08/2025 10:45 AM CDT Office Visit [facility] - General Surgery [address] [place] [address], [place] [phone] Irene Rojas MD [address] [place] [phone] 09/14/2025 11:00 AM CDT Office Visit [facility] - Pulmonology [address] [place] [address] [place] [address] Jamie Arboleda MD [address] [facility] 2L DIV OF PULMONARY/[place] [address] 10/02/2025 11:00 AM DRUM DRIER Office Visit [facility] - Dermatology [address] [facility], [place] [address] Rosie Quigley MD [address] [facility] 3L [place] [address] 12/19/2025 10:00 AM DRUM DRIER Appointment [facility] VASCULAR US [address] [place] [address] Garrick Weldon MD 1225 [facility] 2L [place] [address] 12/19/2025 11:00 AM DRUM DRIER Appointment [facility] VASCULAR US [address] [place] [address] Garrick Weldon MD 1225 [facility] 2L [place] [address] 12/26/2025 2:15 PM DRUM DRIER Office Visit [facility] - Vascular Surgery [address] [facility], [place] [address] Garrick Weldon MD 1225 [facility] 2L [place] [address] 01/04/2026 11:00 AM DRUM DRIER Office Visit [facility] - Cardiology 1034 [facility], [address] [address] Clifford Nolan MD [address] [facility], [address] [address] documented as of this encounter Visit Diagnoses Not on filedocumented in this encounter Additional Health Concerns Infection Onset Date Last Indicated Resolved Time MRSA 05/06/2025 05/06/2025 05/08/2025 7:16 AM CDT MRSA Hx 05/06/2025 05/08/2025 documented as of this encounter Care Teams Authorization Specialist Relationship Specialty Start Date End Date Billy Jalloh MD [address] [address] [address] [place] [address] PCP - General 07/08/16 Jamie Arboleda MD [address] [place] [address] Pulmonary Disease 07/08/18 Ruben Park MD [address] [place] [address] Hematology and Oncology 07/08/18 Yoni Young CD [address] [place] [address] Cardiology 07/08/18 Vadim Xiong MD [address] [place] [address] Gastroenterology 12/02/18 documented as of this encounter
--- OUTSIDE RECORDS SUMMARY | 2025-07-18 12:00 | XMS_ITS | Encounter Summary ---
Author Organization [facility] Address [address] [facility] [place] [address] Care Team Providers Care Civil Cadd Technician Name Role Phone Billy Jalloh MD Primary Care Provider Jamie Arboleda MD Unavailable Ruben Park MD Unavailable Yoni Young CD Unavailable [phone] Vadim Xiong MD Unavailable [phone] Encounter Details Date Type Department Care Team (Late st Contact Info) Description 02/15/2025 Telephone [facility] - Cardiology [address] [address] Clifford Nolan MD [address] [place] [address] Social History Tobacco Use Types Packs/Day Years Used Date Smoking Tobacco: Former Cigarettes 2 30 0 04/1970 - 04/2000 Smokeless Tobacco: Never Alcohol Use Standard Drinks/Week Comments Yes 0.8 (1 standard drink = 0.6 oz p ure alcohol) beer once in a while AUDIT-C Answer Date Recorded Q1: How often do you have a drink containing alc ohol? Monthly or less 02/17/2025 Q2: How many drinks containi ng alcohol do you have on a typical day when you are drinking? 1 or 2 02/17/2025 Q3: How often do you have si x or more drinks on one occasion? Never 02/17/2025 Overall Financial Resource Strain (CARDIA) Answe r Date Recorded How hard is it for you to pa y for the very basics like food, housing, medical care, and heating? Not hard at all 02/17/2025 PHQ-2 Answer Date Recorded PHQ2 TOTAL SCORE 0 01/30/2022 [facility] - Occupational Stress Questionnaire Answer Date Recorded Do you feel stress - tense, restless, nervous, or anxious, or unable to sleep at night because your mind is troubled all the time - these days? Not at all 02/17/2025 Hunger Vital Sign Answer Date Recorded Within the past 12 months, y ou worried that your food would run out before you got the money to buy more. Never true 02/18/20 25 Within the past 12 months, t he food you bought just didn't last and you didn't have money to get more. Never true 02/17/2025 PRAPARE - Transportation Answer Date Re corded In the past 12 months, has l ack of transportation kept you from medical appointments or from getting medications? No 01/29 In the past 12 months, has l ack of transportation kept you from meetings, work, or from getting things needed for daily living? No 02/17/2025 Housing Stability Vital Sign Answer Marshal e Recorded In the last 12 months, was t here a time when you were not able to pay the mortgage or rent on time? No 02/17/2025 In the past 12 months, how m any times have you moved where you were living? 0 02/17/2025 At any time in the past 12 m [facility], were you homeless or living in a longterm (including now)? No 02/17/2025 Sex and Gender Information Value Date Recorded Sex Assigned at Male 09/26/2021 11:03 AM CDT Legal Sex Male 5:14 PM LIBRARY HELPER Gender Identity Male 09/26/2021 11:04 AM CDT Sexual Orientation Straight 09/26/2021 11 :04 AM CDT documented as of this encounter Functional Status * Question Answer Date of Assessment Author Q1: How often do you have a drink containing alcohol? Monthly or less 02/17/2025 10:[address] RN Q2: How many drinks containing alcohol do you have on a typical day when you are drinking? 1 or 2 02/17/2025 10:[address] RN Q3: How often do you have six or more drinks on one occasion? Never 02/17/2025 10:[address] RN * Audit-C Score Answer Date of Assessment Author 1 02/17/2025 10:[address] RN * Is person deaf or have serious hearing difficulty? Answer Date of Assessment Author No 01/04/2025 5:06 PM Gianna Cook RN * Is person blind or have serious difficulty seeing? Answer Date of Assessment Author No 01/04/2025 5:06 PM Gianna Cook RN * Does person have serious difficulty walking/climbing stairs? Answer Date of Assessment Author Yes 01/04/2025 5:06 PM Gianna Cook RN * Does person have difficulty dressing/bathing? Answer Date of Assessment Author No 01/04/2025 5:06 PM Gianna Cook RN * Does person have difficulty doing errands alone? Answer Date of Assessment Author Yes 01/04/2025 5:06 PM Gianna Cook RN documented as of this encounter Mental Status * Does person have difficulty concentrating/remembering/making decisions? Answer Entry Date Author No 01/04/2025 5:06 PM Gianna Cook RN documented in this encounter Miscellaneous Notes * Telephone Encounter - Ced Irwin - 02/15/2025 10:47 AM CDT Pt wanting a return call stated 03/23 apt need to be moved up sooner Best cb # [phone] documented in this encounter Plan of Treatment Upcoming Encounters Date Type Department Care Team (Late st Contact Info) Description 08/08/2025 10:45 AM CDT Office Visit [facility] - General Surgery [address] [place] [address], [place] [address] Irene Rojas MD [address] [place] [address] [address] [place] [address] 09/14/2025 11:00 AM CDT Office Visit [facility] - Pulmonology [address] [place] [address], [place] [address] Jamie Arboleda MD [address] [place] [address] 2L DIV OF PULMONARY/[place] [address] 10/02/2025 11:00 AM LIBRARY HELPER Office Visit [facility] - Dermatology [address] [place] [address], [place] [address] Rosie Quigley MD [address] [place] [address] 3L [place] [address] 12/19/2025 10:00 AM LIBRARY HELPER Appointment [facility] VASCULAR [facility] [place] [place] [address] Garrick Weldon MD [address] [place] [address] 2L [place] [address] 12/19/2025 11:00 AM LIBRARY HELPER Appointment [facility] VASCULAR US [address]01 [place] [address] Garrick Weldon MD [address] [place] [address] 2L [place] [address] 12/26/2025 2:15 PM LIBRARY HELPER [facility] [address] [place] [address], [facility] [place] [address] Garrick Weldon MD [address] [place] [address] 2L [place] [address] 01/04/2026 11:00 AM LIBRARY HELPER Office Visit [facility] - Cardiology [address] [facility] [address]120 [place] [address] Clifford Nolan MD [address] [facility], [facility] [address]120 [place] [address] documented as of this encounter Visit Diagnoses Not on filedocumented in this encounter Additional Health Concerns Infection Onset Date Last Indicated Resolved Time MRSA 05/06/2025 05/06/2025 05/08/2025 7:16 AM CDT MRSA Hx 05/06/2025 05/08/2025 documented as of this encounter Care Teams Civil Cadd Technician Relationship Specialty Start Date End Date Billy Jalloh MD [facility] [address] [place] [address] PCP - General 07/08/16 Jamie Arboleda MD [address] [facility] [address] [place] [address] Pulmonary Disease 07/08/18 Ruben Park MD [address] [place] [address] Hematology and Oncology 07/08/18 Yoni Young, SHERRILL [address] [place] [address] Cardiology 07/08/18 Vadim Xiong MD [address] [place] [address] Gastroenterology 12/02/18 documented as of this encounter
--- OUTSIDE RECORDS SUMMARY | 2025-07-18 12:00 | XMS_ITS | Encounter Summary ---
Author Organization [facility] Address [address] [facility] [place] [address] Care Team Providers Care Couture Alterations Dressmaker Name Role Phone Billy Jalloh MD Primary Care Provider Jamie Arboleda MD Unavailable [phone] Ruben Park MD Unavailable Yoni Young CD Unavailable Vadim Xiong MD Unavailable [phone] Encounter Details Date Type Department Care Team (Late st Contact Info) Description 01/08/[address] [facility] - Lab Cytogenetics [address] [place] [address] Ruben Park MD [address] [place] [address] Rd [address] [place] [address] Waldenstrom's disease (HCC) Social History Tobacco Use Types Packs/Day Years Used Date Smoking Tobacco: Never Assessed Sex and Gender Information Value Date Recorded Sex Assigned at Male 09/26/2021 11:03 AM CDT Legal Sex Male 5:14 PM VP CONSTRUCTION Gender Identity Male 09/26/2021 11:04 AM CDT Sexual Orientation Straight 09/26/2021 11 :04 AM CDT documented as of this encounter Plan of Treatment Upcoming Encounters Date Type Department Care Team (Late st Contact Info) Description 08/08/2025 10:45 AM CDT [facility] General [facility] [address] [place] [address], [place] [address] Irene Rojas MD [address] [place] [address] [address] [place] [address] 09/14/2025 11:00 AM CDT [facility] [address] [place] [address], [place] [address] Jamie Arboleda MD [address] [place] [address] 2L DIV OF PULMONARY/[place] [address] 10/02/2025 11:00 AM VP CONSTRUCTION Office Visit [facility] - Dermatology [address] [place] [address], [place] [address] Rosie Quigley MD [address] [place] [address] 3L [place] [address] 12/19/2025 10:00 AM VP CONSTRUCTION Appointment [facility] VASCULAR US [address] [place] [address] Garrick Weldon MD [address] [place] [address] 2L [place] [address] 12/19/2025 11:00 AM VP CONSTRUCTION Appointment [facility] VASCULAR US [address] [place] [address] Garrick Weldon MD [address] [place] [address] 2L [place] [address] 12/26/2025 2:15 PM VP CONSTRUCTION Office Visit [facility] - Vascular Surgery [address] [place] [address], [place] [address] Garrick Weldon MD [address] [place] [address] 01/04/2026 11:00 AM VP CONSTRUCTION Office Visit [facility] - Cardiology [address] [facility] [place] [address] [place] [address] Clifford Nolan MD [address] [facility], [facility] [address] [place] [address] documented as of this encounter Procedures Procedure Name Priority Date/Time Associated Diagnosis Comments CYTOGENETICS CANCER PANEL Routine 01/08/2015 1:45 PM VP CONSTRUCTION Waldenstrom's disease [ICD-9-CM] documented in this encounter Results * CYTOGENETICS CANCER PANEL (01/08/2015 1:45 PM VP CONSTRUCTION) Indication for Study Waldenstrom's Disease FISH Lymphoma panel requested by physician 5 7:21 AM VP CONSTRUCTION [facility] MOLE[facility] CYTOGENOMIC LAB Results Cytogenetics Analysis of 200 interphase cells hybridized to dual breakapart ALK, BCL6, C-MYC, MALT and dual fusion CCND1, BCL2, and MYC specific fluorescent labeled probes* directed onto 2p23, 3q27, 8q24, 18q21 and 11q13, 18q21 and 8q24 showed the following results: nuc ashu(ALKx2)[196/200], (BCL6x2)[191/200],(C EP8,C-MYC,IGH)x2[177 /200],(C-MYCx2)[191/ 200],(CCND1,IGH)x2[1 90/200],(LQHQ0h5)[19 3/200],(IGH,BCL2)x2[ 190/200] Normal Note: The remaining percentage of cells have signals that either represent G1 cells or endoreduplicated cells of no significance. Analysis and count of 20 cells (8 cells karyotyped, GTL-banding) from 24-hour unstimulated and 72-hour Interleukin stimulated bone marrow cultures showed the following chromosome pattern: 46,XY[20] 5 7:21 AM [facility] MO[facility] CYTOGENOMIC LAB Interpretation FISH was negative for all the probes of the lymphoma panel. Chromosome analysis is in progress. 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 5 7:21 AM [facility] MOLECULAR CYTOGENOMIC LAB at 0721 VP CONSTRUCTION Preliminary result electronically signed by Paula Umaña, PhD ABMG on 01/11/2015 at 1034 VP CONSTRUCTION Disclaimer *This test was developed, and its performance characteristics determined by [facility] Molecular Cytogenetics Laboratory as required by CLIA [...] pathology with cytogenetic findings. 5 7:21 AM [facility] MOLECULAR CYTOGENOMIC LAB Client Information [facility] - [id number] [facility] Lab Number: [id number] 5 7:21 AM VP CONSTRUCTION [facility] CYTOGENOMIC LAB Other BONE MARROW SPECIMEN / Unknown 01/08/2015 1:45 PM VP CONSTRUCTION 01/08/2015 1:45 PM VP CONSTRUCTION us Ruben Park MD LAB - PATHOLOGY/CYTOLOGY O RDERABLES Final Result Performing Organization Address City/State/[facility] Co de Phone Number [facility] CYTOGENOMIC LAB [address] [place] [address] documented in this encounter Visit Diagnoses Diagnosis Waldenstrom's disease (HCC) Macroglobulinemia documented in this encounter Additional Health Concerns Infection Onset Date Last Indicated Resolved Time MRSA 05/06/2025 05/06/2025 05/08/2025 7:16 AM CDT MRSA Hx 05/06/2025 05/08/2025 documented as of this encounter Care Teams Couture Alterations Dressmaker Relationship Specialty Start Date End Date Billy Jalloh MD [address] [place] [address] PCP - General 07/08/16 Jamie Arboleda MD [address] [place] [address] Pulmonary Disease 07/08/18 Ruben Park MD [address] [place] [address] Hematology and Oncology 07/08/18 Yoni Young CD [address] [address] Cardiology 07/08/18 Vadim Xiong MD [address] [place] [address] Gastroenterology 12/02/18 documented as of this encounter
--- OUTSIDE RECORDS SUMMARY | 2025-07-18 12:00 | XMS_ITS | Encounter Summary ---
Author Organization [facility] Address [address] [facility] [place] [address] Care Team Providers Care Architectural Administrative Assistant Name Role Phone Billy Jalloh MD Primary Care Provider Jamie Arboleda MD Unavailable Ruben Park MD Unavailable [phone] Yoni Young CD Unavailable Vadim Xiong MD Unavailable [phone] Encounter Details Date Type Department Care Team (Late st Contact Info) Description 06/30/2019 Telephone [facility] Plastic Surgery [address] [place] [address] Dominic Buitrago MD [address] [place] [address] Social History Tobacco Use Types Packs/Day Years Used Date Smoking Tobacco: Former Cigarettes 2 30 0 04/1970 - 04/2000 Smokeless Tobacco: Never Alcohol Use Standard Drinks/Week Comments No 0.8 (1 standard drink = 0.6 oz p ure alcohol) Sex and Gender Information Value Date Recorded Sex Assigned at Male 09/26/2021 11:03 AM CDT Legal Sex Male 5:14 PM HITCHER Gender Identity Male 09/26/2021 11:04 AM CDT [...] Olga Baird RN * Does person have serious difficulty walking/climbing stairs? Answer Date of Assessment Author No 06/11/2019 10:15 PM CDT Truman, As mirna Baird RN * Does person have difficulty [...] Mr. Sosa. She can be reached at [phone]. documented in this encounter Plan of Treatment Upcoming Encounters Date Type Department Care Team (Late st Contact Info) Description 08/08/2025 10:45 AM CDT Office Visit [facility] - General Surgery [address] [place] [phone] Irene Rojas MD [address] [place] [phone] 09/14/2025 11:00 AM CDT Office Visit [facility] - Pulmonology [address] [place] [address] Jamie Arboldea MD [address] [facility] 2L DIV OF PULMONARY/[place] [address] 10/02/2025 11:00 AM HITCHER [facility]5 [facility], [place] [address] Rosie Quigley MD [address] [facility] 3L [place] [address] 12/19/2025 10:00 AM HITCHER Appointment [facility] VASCULAR US [address] [place] [address] Garrick Weldon MD [address] [facility] 2L [place] [address] 12/19/2025 11:00 AM HITCHER Appointment [facility] VASCULAR US [address] [place] [address] Garrick Weldon MD [address] [facility] 2L [place] [address] 12/26/2025 2:15 PM HITCHER [facility] [address] [place] [address], [place] [address] Garrick Weldon MD [address] [facility] 2L [place] [address] 01/04/2026 11:00 AM HITCHER Office Visit [facility] - Cardiology [address] [address] Clifford Nolan MD [address] [address] documented as of this encounter Visit Diagnoses Not on filedocumented in this encounter Additional Health Concerns Infection Onset Date Last Indicated Resolved Time MRSA 05/06/2025 05/06/2025 05/08/2025 7:16 AM CDT MRSA Hx 05/06/2025 05/08/2025 documented as of this encounter Care Teams Architectural Administrative Assistant Relationship Specialty Start Date End Date Billy Jalloh MD [address] [place] [address] PCP - General 07/08/16 Jamie Arboleda MD [address] [place] [address] Pulmonary Disease 07/08/18 Ruben Park MD [address] [place] [address] Hematology and Oncology 07/08/18 Yoni Young, SHERRILL [address] [place] [address] Cardiology 07/08/18 Vadim Xiong MD [address] [place] [address] Gastroenterology 12/02/18 documented as of this encounter
== END ==
LOC: ANHLAB 11:26
PROVIDERS: Visit Provider Plastic Surgery
DX: C44.719 Basal cell carcinoma of skin of left lower limb, including hip (principal); L90.5 Scar conditions and fibrosis of skin
CPT/HCPCS: 88305